=== PATIENT | female | born 1955 | race Caucasian/White ===

== ENCOUNTER → 2017-08-25 13:11 | Outpatient (CLI) | payer OTHER, SELFPAY ==
[2017-08-21 13:18] VITALS: BP 140/84; BMI 32.9
--- NOTE | 2017-08-25 13:14 | HPBI_ITS ---
MAMMOGRAPHY - UNILATERAL DIAGNOSTIC: RIGHT BREAST REASON FOR EXAM: Female, 62 years old. Right breast lump. PERTINENT HISTORY: Aunt with breast cancer. TECHNIQUE: Digital unilateral breast marlon (3D mammographic acquisition) in the CC and MLO projections. 2-D mediolateral oblique (MLO) and craniocaudad (CC) views of both breasts were obtained. CAD: Full Field Digital Mammography with Computer Added Detection was performed. COMPARISON: Comparison is made with prior examination dated December 16, 2016 and December 01, 2015. FINDINGS: Breast Composition: The breasts are almost entirely fatty. There are no dominant masses or suspicious calcifications. There is a partially calcified nodule in the anterior medial portion of the right breast suggestive of a calcified fatty cyst. No other significant abnormalities are identified. There has been no significant change since the prior study. HPBI/DIAG MAMM W/CAD, UNILAT IMPRESSION: Stable unilateral diagnostic mammogram. With the patient's history of palpable abnormality in the upper medial portion of the right breast, correlation with ultrasound is recommended. ASSESSMENT CATEGORY: BIRADS Category 0: Incomplete. Need additional imaging evaluation. A letter regarding these results will be sent to the patient by the facility within 30 days. Approximately 10% of breast cancers are not detected by mammography. A normal mammogram should not delay biopsy of a clinically suspicious abnormality. Electronically Signed: North Bauman MD at 8:07 EST Tel [phone], Service support ,
--- NOTE | 2017-08-25 13:54 | US_ITS ---
STUDY: ULTRASOUND BREAST - RIGHT REASON FOR EXAM: Female, 62 years old. Palpable lump in the right breast. TECHNIQUE: Axial and longitudinal images of the RIGHT breast were performed with a high resolution ultrasound transducer. COMPARISON: Comparison is made with prior mammogram dated August 25, 2017 earlier today. FINDINGS: RIGHT Breast: There is a 1.1 cm x 0.8 cm x 0.8 cm cyst at the 2:00 position breast a 6 cm from nipple. Adjacent to this, there is a 4 mm x 5 mm x 4 mm cyst at the 2:00 position breast at 5 cm from nipple. US/Breast Limited Unilateral IMPRESSION: 2 cysts are seen at the 2:00 position of the breast at 6 and 5 cm from the nipple. ASSESSMENT CATEGORY: BIRADS Category 2: Benign. A letter regarding these results will be sent to the patient by the facility within 30 days. Electronically Signed: North Bauman MD at 14:48 EST Tel [phone], Service support ,
== END ==
PROVIDERS: Family Provider Family Medicine; PCP Family Medicine; Visit Provider Internal Medicine Hematology & Oncology
DX: N63.10 Unspecified lump in the right breast, unspecified quadrant (principal); C50.912 Malignant neoplasm of unspecified site of left female breast; Z15.01 Genetic susceptibility to malignant neoplasm of breast
CPT/HCPCS: 76642; 77062; 77065; G0279

== ENCOUNTER → 2017-10-27 09:03 | Outpatient (CLI) | payer OTHER, SELFPAY ==
--- NOTE | 2017-10-25 08:40 | MASS_PTH ---
PATIENT: POLI MORENO LOC: [facility] U#:[id number] AGE/SX: 70/F ROOM: RE10/27/[address]: Dr. Ryan Frank MD : 1955 BED: DIS: SPEC #: [id number] RECD: 10/27/17 07:16 STATUS: KAMAR ИВАН #: [id number] ALINA: 10/25/17 08:[address]: Ryan Frank DEPT: SURGICAL PATHOLOGY RECD BY: Nicolas Chou ENTERED: 10/27/17 09:56 SP TYPE: Mass OTHR DR: Dr. Guanakito King MD Tissues: Abdomen, NOS Procedures: Surgery Specimen Level IV HEADER OPERATION: Excision abdominal mass PRE-OP DIAGNOSIS: Abdominal mass TISSUE SUBMITTED: Abdominal tissue MICROSCOPIC DIAGNOSIS Abdominal tissue, excision: Fragments of fibroadipose tissue with focal fat necrosis, chronic inflammation, foreign body giant cell reaction and dystrophic calcification. Negative for malignancy. SJ:danilo 10/28/17 MICROSCOPIC DESCRIPTION Slides are reviewed. GROSS DESCRIPTION Received in fixative is one container labeled with the patient's name and designated abdominal tissue. The specimen consists of multiple irregular fragments of yellow to vicente soft tissue ranging in size from 1.5 to 3 cm. The largest fragment is sectioned to reveal homogenous cut surfaces. No distinct mass lesion is identified. Machine Design Checker sections are submitted in three cassettes. / AM:danilo 10/27/17 TC:5 CPT: 68944
== END ==
PROVIDERS: Family Provider Family Medicine; PCP Family Medicine; Visit Provider Surgery
DX: R19.00 Intra-abdominal and pelvic swelling, mass and lump, unspecified site (principal)
CPT/HCPCS: 87070; 87205; 88305

== ENCOUNTER → 2018-01-16 13:05 | Outpatient (CLI) | payer OTHER, SELFPAY ==
[2018-01-16 13:40] LABS: CREATININE FINGERSTICK 0.8 mg/dL (0.55-1.02); EGFR FINGERSTICK > 60.0000 mL/min (>60)
--- NOTE | 2018-01-16 13:45 | MRI_ITS ---
STUDY: BILATERAL BREAST MR WITHOUT AND WITH CONTRAST REASON FOR EXAM: Female, 62 years old. History of left breast cancer in April 2006. Status post left lumpectomy. The RCA positive. History of ovarian cancer. TECHNIQUE: Multi-sequence multi-echo imaging of both breasts was performed with a dedicated breast coil. T1-weighted and T2-weighted images were performed before the administration of contrast. T1-weighted images were also performed after the administration of 10 mL of Gadavist contrast intravenously without complications. COMPARISON: Prior breast MR studies dated December 19, 2016 and December 01, 2015. FINDINGS: RIGHT BREAST: The breast tissue is fatty with minimal background enhancement. There are no abnormal enhancing masses or areas of non-mass enhancement in the right breast. LEFT BREAST: The breast tissue is fatty with minimal background enhancement. There is minimal deformity from the left lumpectomy, unchanged. There are no abnormal enhancing masses or areas of non-mass enhancement in the left breast. There are no enlarged or abnormal lymph nodes. There is no abnormality in the visualized regions of the chest or liver. MRI/Breast w/o and/or W Cont Bilat IMPRESSION: Stable breast MRI examination with contrast. No new findings. CATEGORY: BIRADS Category 2: Benign. A letter regarding these results will be sent to the patient by the facility within 30 days. Electronically Signed: Hernandez Hopkins MD at 10:40 EDT , Service support ,
--- NOTE | 2018-01-16 14:39 | BI_ITS ---
MAMMOGRAPHY - BILATERAL SCREENING REASON FOR EXAM: Female, 62 years old. Routine annual screening examination. PERTINENT HISTORY: Personal history of breast cancer. Prior left lumpectomy with radiation treatment. Patient also has a history of ovarian cancer. TECHNIQUE: Digital bilateral breast marlon (3D mammographic acquisition) in the CC and MLO projections. 2-D mediolateral oblique (MLO) and craniocaudad (CC) views of both breasts were obtained. CAD: Full Field Digital Mammography with Computer Added Detection was performed. COMPARISON: Comparison is made with prior study dated August 25, 2017 and December 16, 2016. FINDINGS: Breast Composition: The breasts are almost entirely fatty. There are no dominant masses or suspicious calcifications. Once again, the patient is status post lumpectomy in the deep upper outer aspect of the left breast. There is evidence of mild architectural distortion. This is unchanged. Stable small partially calcified nodules in the left breast. Stable rim calcification and 2 small nodules in the right breast. No other significant abnormalities are identified. There has been no significant change since the prior study. BI/SCREENING MAMM (CAD), BILAT IMPRESSION: Stable bilateral screening mammogram. Yearly follow-up mammogram recommended. (A) ASSESSMENT CATEGORY: BIRADS Category 2: Benign. A letter regarding these results will be sent to the patient by the facility within 30 days. Approximately 10% of breast cancers are not detected by mammography. A normal mammogram should not delay biopsy of a clinically suspicious abnormality. [id number] Electronically Signed: North Bauman MD at 8:29 EDT Tel [phone], Service support ,
== END ==
PROVIDERS: Family Provider Family Medicine; PCP Family Medicine; Visit Provider Internal Medicine Hematology & Oncology
DX: Z12.31 Encounter for screening mammogram for malignant neoplasm of breast (principal); Z15.01 Genetic susceptibility to malignant neoplasm of breast; C50.912 Malignant neoplasm of unspecified site of left female breast; C56.9 Malignant neoplasm of unspecified ovary
CPT/HCPCS: 77059; 77063; 77067; A9585; A4216; C8908

== ENCOUNTER → 2019-01-19 10:17 | Outpatient (CLI) | payer OTHER, SELFPAY ==
[2018-09-17 13:16] VITALS: BMI 30.9
--- NOTE | 2019-01-19 10:24 | BD_ITS ---
STUDY: DUAL ENERGY X-RAY ABSORPTIOMETRY / DXA REASON FOR EXAM: Female, 63 years old. The patient is postmenopausal. Loss of height. History of breast cancer. TECHNIQUE: Bone Mineral Density (BMD) measurements of lumbar spine and bilateral hips were obtained. COMPARISON: Comparison is made with prior study dated October 22, 2016. FINDINGS: Lumbar Spine (L1-L4): g/cm2 (1.068) / T-score (-1.1) / Z-score (0.5) Findings are suggestive of osteopenia with a low fracture risk. Increased thoracic kyphosis. Left Femur Total: g/cm2 (0.739) / T-score (-2.1) / Z-score (-1.0) Left Femoral Neck: g/cm2 (0.725) / T-score (-2.3) / Z-score (-0.8) Right Femur Total: g/cm2 (0.755) / T-score (-2.0) / Z-score (-0.8) Right Femoral Neck: g/cm2 (0.731) / T-score (-2.2) / Z-score (-0.8) The T-Scores on the most recent prior examination were: Lumbar Spine (L1-L4): There has been improvement of bone density since the previous examination. Left Femur Total: which represents a worsening of 3.3%. Right Femur Total: which represents a worsening of 2.5%. BD/Dexa Bone Density Study IMPRESSION: The patient is considered osteopenic as outlined below according to World Dewayne Organization (WHO) criteria with a moderate fracture risk. There has been worsening of bone density since the previous examination. Reference Information: The T-score is the number of standard deviations above or below the standard which is normal for young adults at their peak bone mineral density. The World Health Organization (WHO) interprets the T-scores as follows: Above -1 Normal bone density Between -1 and -2.5 Osteopenia Equal to / or below -2.5 Osteoporosis As a practical clinical guideline, osteopenia may be graded as follows: Mild -1 through -1.5 Moderate -1.6 through -2.0 Severe -2.1 through -2.4 The Z-score is the number of standard deviations above or below age-matched controls. A Z-score of less than -1.5 would be considered abnormal. References: 1. NIH Osteoporosis and Related Bone Diseases http://www.osteo.org 2. International Society for Clinical Densitometry http://www.iscd.org 3. National Osteoporosis Foundation http://www.nof.org Electronically Signed: North Bauman, at 9:15 EDT , Service support ,
--- NOTE | 2019-01-19 10:48 | BI_ITS ---
MAMMOGRAPHY - BILATERAL SCREENING REASON FOR EXAM: Female, 63 years old. Routine annual screening examination. PERTINENT HISTORY: Personal history of breast cancer. History of ovarian cancer. Prior left lumpectomy with relation therapy. Aunts with breast cancer. TECHNIQUE: Digital bilateral breast dre (3D mammographic acquisition) in the CC and MLO projections. 2-D mediolateral oblique (MLO) and craniocaudad (CC) views of both breasts were obtained. CAD: Full Field Digital Mammography with Computer Added Detection was performed. COMPARISON: Comparison is made with prior study dated January 16, 2018 and December 16, 2016. FINDINGS: Breast Composition: There are scattered areas of fibroglandular density. There are no dominant masses or suspicious calcifications. Persistent architectural distortion in the deep upper lateral aspect of the left breast atypia with prior lumpectomy. Residual breast deformity and skin thickening at the operative site. Stable calcified nodules in the left breast. No other significant abnormalities are identified. There has been no significant change since the prior study. BI/SCREEN MAMM (CAD) W/DRE BILAT IMPRESSION: Stable bilateral screening mammogram. Yearly follow-up mammogram recommended. (A) ASSESSMENT CATEGORY: BIRADS Category 2: Benign. A letter regarding these results will be sent to the patient by the facility within 30 days. Approximately 10% of breast cancers are not detected by mammography. A normal mammogram should not delay biopsy of a clinically suspicious abnormality. [id number] Electronically Signed: North Bauman, at 12:35 EDT , Service support ,
== END ==
PROVIDERS: Family Provider Family Medicine; PCP Family Medicine; Referring Provider Internal Medicine Hematology & Oncology; Visit Provider Internal Medicine Hematology & Oncology
DX: M85.80 Other specified disorders of bone density and structure, unspecified site (principal); C56.9 Malignant neoplasm of unspecified ovary; Z78.0 Asymptomatic menopausal state; Z12.31 Encounter for screening mammogram for malignant neoplasm of breast
CPT/HCPCS: 77063; 77067; 77080

== ENCOUNTER → 2019-07-26 09:00 | Outpatient (CLI) | payer MEDICARE, OTHER, SELFPAY ==
[2019-01-25 13:30] VITALS: BMI 31.2
--- NOTE | 2019-07-26 09:02 | MRI_ITS ---
STUDY: BILATERAL BREAST MR WITHOUT AND WITH CONTRAST REASON FOR EXAM: Female, 64 years old. 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 Personal history of ovarian cancer. TECHNIQUE: Multi-sequence multi-echo imaging of both breasts was performed with a dedicated breast coil. T1-weighted and T2-weighted images were performed before the administration of contrast. T1-weighted images were also performed after the administration of 17 ml of Dotarem contrast without complications. COMPARISON: Bilateral mammograms dated January 19, 2019 and January 16, 2018. FINDINGS: RIGHT BREAST: The breast tissue is fatty with minimal background enhancement. There are no abnormal enhancing masses or areas of non-mass enhancement in the right breast. Multiple benign calcifications are noted on mammograms dated January 19, 2019. LEFT BREAST: The breast tissue is fatty with minimal background enhancement. Postlumpectomy changes are present. Benign calcifications and fat necrosis calcifications are seen on the mammogram and on the MRI study. There are no abnormal enhancing masses or areas of non-mass enhancement in the left breast. There are no enlarged or abnormal lymph nodes. There is no abnormality in the visualized regions of the chest or liver. MRI/Breast Bilateral W/O and W IMPRESSION: Post lumpectomy changes in the right breast. No other significant abnormality. Yearly follow-up mammogram would be appropriate. CATEGORY: BIRADS Category 2: Benign. A letter regarding these results will be sent to the patient by the facility within 30 days. Electronically Signed: Hernandez Hopkins MD at 10:58 EST , Service support ,
[2019-07-26 09:23] LABS: Absolute Lymphocyte Count 1.06 X10^3/uL (0.83-4.51); Absolute Neutrophil Count 3.4 X10^3/uL (2.0-7.7); Basophil# 0.02 X10^3/uL; Basophil% 0.4 % (0-1); Eosinophil# 0.03 X10^3/uL; Eosinophils% 0.6 % (0-5); Hematocrit 43.3 % (37-47); Hemoglobin 14.1 g/dL (12.0-15.0); Lymphocyte # 1.06 X10^3/ul (4.0); Lymphocyte % 22.5 % (19-41); Mean Corp Hgb Conc 32.6 g/dL (32-36); Mean Corpuscular Hgb 30.9 pg (27.0-32.0); Mean Platelet Vol. 9.7 fl (6.2-12.0); Monocyte# 0.24 X10^3/uL; Monocyte% 5.1 % (0-10); NRBC Flagged by Analyzer 0 % (0-5); Neutrophil # 3.35 X10^3/uL (2.7-7.7); Neutrophil % 71.2 % (47-70); Platelet Count 180 K/mm3 (150-450); RBC Distribution Width CV 11.7 % (11.6-14.6); RBC Distribution Width SD 40.7 fl (35.1-43.9); Red Blood Count 4.56 M/mm3 (4.2-5.4); White Blood Count 4.7 K/mm3 (4.4-11.0)
[2019-07-26 09:46] LABS: ALB/GLOB Ratio 1.1 RATIO (0.9-2.4); AST(SGOT) 15 U/L (15-37); Alanine Aminotransfer ALT/SGPT 21 U/L (13-56); Albumin, Serum 3.6 g/dL (3.2-5.0); Alkaline Phosphatase 83 U/L (45-117); Anion Gap 4 (5-15); BUN 15 mg/dL (7-18); BUN/Creat Ratio 18.2 RATIO (10-20); Calcium,Total 9.4 mg/dL (8.5-10.1); Chloride 106 mmol/L (98-107); Cholesterol 199 mg/dL (200); Creatinine, Serum 0.82 mg/dL (0.55-1.02); EST Glomerular Filtration Rate 74 mL/min (>60); Est Glom Filt Rate - Afr Amer 90 mL/min (>60); Globulin 3.4 g/dL (2.2-4.2); Glucose 110 mg/dL (74-106); High Density Lipoprotein 51 mg/dL; Sodium Level 139 mmol/L (136-145); Triglycerides 139 mg/dL; Very Low Density Lipoprotein 28 mg/dL (5-40)
[2019-07-26 09:48] LABS: Vitamin D,25 Hydroxy 25.6 ng/mL (29.95-100.01)
== END ==
PROVIDERS: Family Provider Family Medicine; PCP Family Medicine; Referring Provider Internal Medicine Hematology & Oncology; Visit Provider Internal Medicine Hematology & Oncology
DX: C50.912 Malignant neoplasm of unspecified site of left female breast (principal); C56.9 Malignant neoplasm of unspecified ovary; Z15.01 Genetic susceptibility to malignant neoplasm of breast; Z15.02 Genetic susceptibility to malignant neoplasm of ovary; Z79.83 Long term (current) use of bisphosphonates; Z13.220 Encounter for screening for lipoid disorders
CPT/HCPCS: 36415; 77049; 80053; 80061; 82306; 84443; 85025; A9575; A4216; C8908

== ENCOUNTER → 2020-01-24 | Outpatient (CLI) | payer MEDICARE, OTHER, SELFPAY ==
[2019-07-29 13:00] VITALS: BMI 31.1
--- NOTE | 2020-01-24 10:17 | BI_ITS ---
MAMMOGRAPHY - BILATERAL SCREENING REASON FOR EXAM: Female, 64 years old. Routine annual screening examination. PERTINENT HISTORY: Personal history of breast cancer. Aunt with breast cancer. TECHNIQUE: Digital bilateral breast dre (3D mammographic acquisition) in the CC and MLO projections. 2-D mediolateral oblique (MLO) and craniocaudad (CC) views of both breasts were obtained. CAD: Full Field Digital Mammography with Computer Added Detection was performed. COMPARISON: Comparison is made with prior study dated January 19, 2019 and January 17, 2008. FINDINGS: Breast Composition: There are scattered areas of fibroglandular density. There are no dominant masses or suspicious calcifications. Persistent architectural distortion in the deep upper lateral aspect of the left breast in keeping with prior lumpectomy. Stable calcified nodules in the upper outer quadrant of the left breast as well as a fat containing rim calcified nodule in the slightly upper medial portion of the right breast. No other significant abnormalities are identified. There has been no significant change since the prior study. BI/SCREEN MAMM (CAD) W/DRE BILAT IMPRESSION: Stable bilateral screening mammogram. Yearly follow-up mammogram recommended. (A) ASSESSMENT CATEGORY: BIRADS Category 2: Benign. A letter regarding these results will be sent to the patient by the facility within 30 days. Approximately 10% of breast cancers are not detected by mammography. A normal mammogram should not delay biopsy of a clinically suspicious abnormality. [id number] Electronically Signed: North Bauman, at 15:10 EDT , Service support ,
== END | disposition home or self-care (01) ==
LOC: OPBI 10:16
PROVIDERS: PCP Family Medicine; Referring Provider Internal Medicine Hematology & Oncology; Visit Provider Internal Medicine Hematology & Oncology
DX: Z12.31 Encounter for screening mammogram for malignant neoplasm of breast (principal); C50.912 Malignant neoplasm of unspecified site of left female breast; C56.9 Malignant neoplasm of unspecified ovary
CPT/HCPCS: 77063; 77067

== ENCOUNTER → 2020-08-14 09:29 | Outpatient (CLI) | payer MEDICARE, OTHER, SELFPAY ==
[2020-01-31 09:46] VITALS: BMI 30.6
--- NOTE | 2020-08-14 10:13 | MRI_ITS ---
STUDY: BILATERAL BREAST MR WITHOUT AND WITH CONTRAST REASON FOR EXAM: Female, 65 years old. annual, brac+, no problems TECHNIQUE: Multi-sequence multi-echo imaging of both breasts was performed with a dedicated breast coil. T1-weighted and T2-weighted images were performed before the administration of contrast. T1-weighted images were also performed after the administration of IV contrast. no dosage given without complications. COMPARISON: 07.26.19 FINDINGS: RIGHT BREAST: The breast tissue is scattered fibroglandular densities with minimal background enhancement. There are no abnormal enhancing masses or areas of non-mass enhancement in the right breast. LEFT BREAST: The breast tissue is scattered fibroglandular densities with minimal background enhancement. Persistent architectural distortion in the deep upper lateral aspect of the left breast in keeping with prior lumpectomy. Stable calcified nodules in the upper outer quadrant of the left breast as well as a fat containing rim calcified nodule in the slightly upper medial portion of the right breast. There are no enlarged or abnormal lymph nodes. There is no abnormality in the visualized regions of the chest or liver. MRI/Breast Bilateral W/O and W IMPRESSION: Stable breast MR examination with contrast. CATEGORY: BIRADS Category 2: Benign. A letter regarding these results will be sent to the patient by the facility within 30 days. Electronically Signed: Lonnie Castillo MD at 13:03 EST , Service support ,
[2020-08-14 10:16] LABS: Absolute Neutrophil Count 3.2 X10^3/uL (2.0-7.7); Basophil# 0.02 X10^3/uL; Basophil% 0.4 % (0-1); Eosinophil# 0.03 X10^3/uL; Eosinophils% 0.6 % (0-5); Hematocrit 44.1 % (37-47); Hemoglobin 14.3 g/dL (12.0-15.0); Lymphocyte % 26.9 % (19-41); Mean Corp Hgb Conc 32.4 g/dL (32-36); Mean Corpuscular Hgb 30.8 pg (27.0-32.0); Mean Corpuscular Volume 94.8 fL (81-99); Mean Platelet Vol. 9.5 fl (6.2-12.0); Monocyte% 6.2 % (0-10); NRBC Flagged by Analyzer 0 % (0-5); Neutrophil # 3.17 X10^3/uL (2.7-7.7); Neutrophil % 65.5 % (47-70); Platelet Count 197 K/mm3 (150-450); RBC Distribution Width CV 11.8 % (11.6-14.6); RBC Distribution Width SD 40.7 fl (35.1-43.9); Red Blood Count 4.65 M/mm3 (4.2-5.4); White Blood Count 4.8 K/mm3 (4.4-11.0)
[2020-08-14 10:32] LABS: ALB/GLOB Ratio 1.1 RATIO (0.9-2.4); AST(SGOT) 17 U/L (15-37); Alanine Aminotransfer ALT/SGPT 22 U/L (13-56); Albumin, Serum 3.9 g/dL (3.2-5.0); Alkaline Phosphatase 76 U/L (45-117); Anion Gap 7 (5-15); BUN 24 mg/dL (7-18); BUN/Creat Ratio 28.5 RATIO (10-20); Calcium,Total 9.6 mg/dL (8.5-10.1); Chloride 105 mmol/L (98-107); Creatinine, Serum 0.84 mg/dL (0.55-1.02); EST Glomerular Filtration Rate 72 mL/min (>60); Est Glom Filt Rate - Afr Amer 87 mL/min (>60); Globulin 3.5 g/dL (2.2-4.2); Glucose 118 mg/dL (74-106); Potassium 3.4 mmol/L (3.5-5.1); Protein, Total 7.4 g/dL (6.4-8.2); Sodium Level 140 mmol/L (136-145)
== END ==
PROVIDERS: PCP Family Medicine; Referring Provider Internal Medicine Hematology & Oncology; Visit Provider Internal Medicine Hematology & Oncology
DX: C50.912 Malignant neoplasm of unspecified site of left female breast (principal); C56.9 Malignant neoplasm of unspecified ovary; Z15.01 Genetic susceptibility to malignant neoplasm of breast; Z15.02 Genetic susceptibility to malignant neoplasm of ovary
CPT/HCPCS: 77049; 80053; 85025; A9575; C8908

== ENCOUNTER 2020-11-23 09:19 | Outpatient (RCR) | payer SELFPAY ==
[2020-08-17 11:43] VITALS: BMI 32.5
--- NOTE | 2021-05-14 08:12 | HP.PT.NRP ---
POLI MORENO was seen in my office for initial evaluation on . The following Plan of Care was established for this patient: This patient was last seen in our office . Pertinent comments regarding their Physical therapy will appear below: self pay DN- d/c At this point I will be discontinuing this patient from physical therapy. I would be happy to see this patient again in the future if found appropriate by the physician. Thank you! JABIER CorcoranT
== END 2020-11-23 19:00 | disposition home or self-care (01) ==
LOC: PT 09:19
DX: R69 Illness, unspecified (principal)

== ENCOUNTER 2021-09-05 12:00 | Outpatient (RCR) | payer SELFPAY ==
[2020-01-31 09:46] VITALS: BMI 30.6
== END 2021-09-05 19:00 | disposition home or self-care (01) ==
LOC: MASS 12:00
PROVIDERS: PCP Family Medicine
DX: R69 Illness, unspecified (principal)

== ENCOUNTER → 2022-08-30 | Outpatient (CLI) | payer MEDICARE, OTHER, SELFPAY ==
[2022-08-30 13:03] LABS: ALB/GLOB Ratio 1.1 RATIO (0.9-2.4); AST(SGOT) 19 U/L (15-37); Alanine Aminotransfer ALT/SGPT 25 U/L (13-56); Albumin, Serum 3.6 g/dL (3.2-5.0); Alkaline Phosphatase 73 U/L (45-117); Anion Gap 6 (5-15); BUN 15 mg/dL (7-18); BUN/Creat Ratio 17.5 RATIO (10-20); Calcium,Total 9.4 mg/dL (8.5-10.1); Chloride 105 mmol/L (98-107); Cholesterol 220 mg/dL (200); Creatinine, Serum 0.86 mg/dL (0.55-1.02); EST Glomerular Filtration Rate 70 mL/min (>60); Est Glom Filt Rate - Afr Amer 84 mL/min (>60); Globulin 3.3 g/dL (2.2-4.2); Glucose 112 mg/dL (74-106); High Density Lipoprotein 62 mg/dL; Potassium 3.7 mmol/L (3.5-5.1); Protein, Total 6.9 g/dL (6.4-8.2); Sodium Level 139 mmol/L (136-145); Triglycerides 103 mg/dL; Very Low Density Lipoprotein 21 mg/dL (5-40)
== END | disposition home or self-care (01) ==
LOC: MFPLAB 10:32
PROVIDERS: PCP Nurse Practitioner Family; Referring Provider Nurse Practitioner Family; Visit Provider Nurse Practitioner Family
DX: Z13.1 Encounter for screening for diabetes mellitus (principal); Z13.220 Encounter for screening for lipoid disorders
CPT/HCPCS: 36415; 80053; 80061

== ENCOUNTER → 2022-10-10 | Outpatient (CLI) | payer MEDICARE, OTHER, SELFPAY ==
--- NOTE | 2022-10-10 09:27 | BI_ITS ---
MAMMOGRAPHY - BILATERAL SCREENING REASON FOR EXAM: Female, 67 years old. Routine annual screening examination. PERTINENT HISTORY: Personal history of breast cancer. Prior left lumpectomy and radiation treatment. Past history of ovarian carcinoma. On 2 with breast cancer. TECHNIQUE: Digital bilateral breast dre (3D mammographic acquisition) in the CC and MLO projections. 2-D mediolateral oblique (MLO) and craniocaudad (CC) views of both breasts were obtained. CAD: Full Field Digital Mammography with Computer Added Detection was performed. COMPARISON: Comparison is made with prior study dated January 24, 2020 and January 19, 2019. FINDINGS: Breast Composition: There are scattered areas of fibroglandular density. There are no dominant masses or suspicious calcifications. The patient is status post lumpectomy in the deep upper lateral aspect of the left breast with resultant postoperative scarring. Stable appearance of the calcified nodules in the left breast as well as the low density nodule in the medial retrocardiac origin of the right breast. No other significant abnormalities are identified. There has been no significant change since the prior study. BI/SCRN MAMM (CAD)W/DRE BILAT IMPRESSION: Stable bilateral screening mammogram. Yearly follow-up mammogram recommended. (A) ASSESSMENT CATEGORY: BIRADS Category 2: Benign. A letter regarding these results will be sent to the patient by the facility within 30 days. Approximately 10% of breast cancers are not detected by mammography. A normal mammogram should not delay biopsy of a clinically suspicious abnormality. [id number] Electronically Signed: North Bauman MD at 10:47 EDT ,
--- NOTE | 2022-10-10 09:27 | BD_ITS ---
STUDY: DUAL ENERGY X-RAY ABSORPTIOMETRY / DXA REASON FOR EXAM: Female, 67 years old. M85.89 TECHNIQUE: Bone Mineral Density (BMD) measurements of lumbar spine and bilateral hips were obtained. COMPARISON: Comparison is made with prior study dated January 19, 2019. FINDINGS: Lumbar Spine (L1-L4): g/cm2 (0.876) / T-score (-1.6) / Z-score (0.4) Findings are suggestive of osteopenia with a moderate fracture risk. Left Femur Total: g/cm2 (0.700) / T-score (-2.0) / Z-score (-0.6) Left Femoral Neck: g/cm2 (0.599) / T-score (-2.3) / Z-score (-0.5) Right Femur Total: g/cm2 (0.739) / T-score (-1.7) / Z-score (-0.3) Right Femoral Neck: g/cm2 (0.603) / T-score (-2.2) / Z-score (-0.5) The T-Scores on the most recent prior examination were: Lumbar Spine (L1-L4): There has been worsening of bone density since the previous examination. Left Femur Total: which represents an improvement of 2.8%. Right Femur Total: which represents an improvement of 6.1%. BD/Dexa Bone Density Study IMPRESSION: The patient is considered osteopenic as outlined below according to World Deway[employer] Organization (WHO) criteria with a high fracture risk. There has been improvement of bone density since the previous examination. Reference Information: The T-score is the number of standard deviations above or below the standard which is normal for young adults at their peak bone mineral density. The World Health Organization (WHO) interprets the T-scores as follows: Above -1 Normal bone density Between -1 and -2.5 Osteopenia Equal to / or below -2.5 Osteoporosis As a practical clinical guideline, osteopenia may be graded as follows: Mild -1 through -1.5 Moderate -1.6 through -2.0 Severe -2.1 through -2.4 The Z-score is the number of standard deviations above or below age-matched controls. A Z-score of less than -1.5 would be considered abnormal. References: 1. NIH Osteoporosis and Related Bone Diseases www osteo.org 2. International Society for Clinical Densitometry www iscd.org 3. National Osteoporosis Foundation www nof.org Electronically Signed: North Bauman MD at 10:23 EDT ,
== END | disposition home or self-care (01) ==
LOC: OPBD 09:24
PROVIDERS: PCP Nurse Practitioner Family; Visit Provider Nurse Practitioner Family
DX: Z12.31 Encounter for screening mammogram for malignant neoplasm of breast (principal); Z85.3 Personal history of malignant neoplasm of breast; M85.89 Other specified disorders of bone density and structure, multiple sites
CPT/HCPCS: 77063; 77067; 77080

== ENCOUNTER → 2023-04-16 | Outpatient (CLI) | payer MEDICARE, OTHER, SELFPAY ==
[2023-04-16 10:31] LABS: Anion Gap 5 (5-15); BUN 18 mg/dL (7-18); BUN/Creat Ratio 21.6 RATIO (10-20); Calcium,Total 9.2 mg/dL (8.5-10.1); Chloride 108 mmol/L (98-107); Creatinine, Serum 0.83 mg/dL (0.55-1.02); EST Glomerular Filtration Rate 72 mL/min (>60); Est Glom Filt Rate - Afr Amer 87 mL/min (>60); Glucose 113 mg/dL (74-106); Magnesium 2.2 mg/dL (1.6-2.6); Potassium 4.1 mmol/L (3.5-5.1); Sodium Level 139 mmol/L (136-145)
== END | disposition home or self-care (01) ==
LOC: MFPLAB 08:36
PROVIDERS: PCP Family Medicine; Visit Provider Family Medicine
DX: R03.0 Elevated blood-pressure reading, without diagnosis of hypertension (principal)
CPT/HCPCS: 36415; 80048; 83735

== ENCOUNTER → 2023-12-04 | Outpatient (CLI) | payer OTHER, MEDICARE, SELFPAY ==
[2023-12-04 10:51] LABS: AST(SGOT) 20 U/L (15-37); Alanine Aminotransfer ALT/SGPT 17 U/L (13-56); Albumin, Serum 3.5 g/dL (3.2-5.0); Alkaline Phosphatase 74 U/L (45-117); Anion Gap 6 (5-15); BUN 14 mg/dL (7-18); BUN/Creat Ratio 19.6 RATIO (10-20); Calcium,Total 9.6 mg/dL (8.5-10.1); Chloride 108 mmol/L (98-107); Cholesterol 204 mg/dL (200); Creatinine, Serum 0.71 mg/dL (0.55-1.02); EST Glomerular Filtration Rate 86 mL/min (>60); Est Glom Filt Rate - Afr Amer 104 mL/min (>60); Globulin 3.4 g/dL (2.2-4.2); Glucose 113 mg/dL (74-106); High Density Lipoprotein 52 mg/dL; Potassium 3.5 mmol/L (3.5-5.1); Protein, Total 6.9 g/dL (6.4-8.2); Sodium Level 139 mmol/L (136-145); Triglycerides 121 mg/dL; Very Low Density Lipoprotein 24 mg/dL (5-40)
[2023-12-04 11:06] LABS: Microalbumin:Creatinine Ratio 8.3 mg/g CRE (<30 mg/g CRE)
== END | disposition home or self-care (01) ==
LOC: MFPLAB 09:24
PROVIDERS: PCP Family Medicine; Visit Provider Family Medicine
DX: Z13.220 Encounter for screening for lipoid disorders (principal); M85.80 Other specified disorders of bone density and structure, unspecified site
CPT/HCPCS: 36415; 80053; 80061; 82043; 82306; 82570

== ENCOUNTER → 2024-01-14 | Outpatient (CLI) | payer MEDICARE, OTHER, SELFPAY ==
--- NOTE | 2024-01-14 09:20 | BI_ITS ---
MAMMOGRAPHY - BILATERAL SCREENING 3-D TOMOSYNTHESIS REASON FOR EXAM: Female, 68 years old. Encounter for screening mammogram for malignant neoplasm of breas PERTINENT HISTORY: No significant family history. TECHNIQUE: 2-D mammograms and 3-D Tomosynthesis of the breast (s) were performed. CAD was performed. COMPARISON: 10/10/2022 FINDINGS: The breast composition is composed of scattered fibroglandular density. Scattered benign calcifications are seen. No dense spiculated masses or suspicious microcalcifications are identified. No architectural distortion is identified. There is no skin thickening or retraction. There has been no significant change since the prior study. No change in lumpectomy changes and scarring in the upper outer quadrant left breast. BI/SCRN MAMM (CAD)W/DRE BILAT IMPRESSION: No mammographic signs of malignancy. Routine yearly mammograms recommended. ASSESSMENT CATEGORY: BIRADS Category 2: Benign. A letter regarding these results will be sent to the patient by the facility within 30 days. FOLLOW UP RECOMMENDATION: Yearly follow up mammogram recommended. (A) Approximately 10% of breast cancers are not detected by mammography. A normal mammogram should not delay biopsy of a clinically suspicious abnormality. Electronically Signed: Nicolas Tejeda MD at 18:50 EDT ,
== END | disposition home or self-care (01) ==
LOC: OPBD 09:15 → OPBI 09:19
PROVIDERS: PCP Family Medicine; Referring Provider Family Medicine; Visit Provider Family Medicine
DX: Z12.31 Encounter for screening mammogram for malignant neoplasm of breast (principal)
CPT/HCPCS: 77063; 77067

== ENCOUNTER 2024-03-12 16:42 | Inpatient (IN) | payer MEDICARE, OTHER, SELFPAY ==
[2024-03-12] VITALS (10 sets, daily range): BP systolic 149–156; BP diastolic 68–100; PULSE 98–110; RESP 18–25; TEMP 36.1–36.5; O2SAT 84–98; BMI 33.0; BMI 32.2
--- NOTE | 2024-03-12 17:45 | CT_ITS ---
STUDY: CTA CHEST REASON FOR EXAM: Female, 68 years old. DYSPNEA. RADIATION DOSAGE (If Supplied By Facility): CTDIvol = ( 12.56 ) mGy, DLP = ( 559.96 ) mGycm TECHNIQUE: The examination was performed with the intravenous administration of IV 100mL Isovue-370. Post-processing of the angiographic images was performed, with multiplanar reformation and 3D reconstruction. Individualized dose optimization techniques were used for this CT. COMPARISON: 06/21/2016. FINDINGS: Normal enhancement of the main pulmonary artery and right and left pulmonary arteries. Several pulmonary emboli are seen in the segmental vessels of both lungs worse on the left and including the left descending pulmonary artery. Small PE in the distal right main pulmonary artery. No evidence for PE in the pulmonary trunk or left main pulmonary artery. Normal thoracic aorta and visualized great vessels. There is no demonstrated aortic dissection. Normal heart and pericardium. Normal mediastinum. Normal hilar regions. Normal visualized trachea and bronchi. Moderate to large pleural effusion on the right with compressive atelectasis of much of the right lung. Superimposed pneumonia in the right lower lobe is not excluded. Small left pleural effusion with adjacent atelectasis. Normal osseous structures. No acute abnormality seen of the visualized upper abdomen. CT/CTA Chest W/WO Contrast IMPRESSION: Positive for bilateral first, second, and third order pulmonary emboli, worse on the left. Moderate to large right pleural effusion with compressive atelectasis of much of the right lung. N.B. : The above Results were Read Back by Saravanan Lombardo MD to Reanna Sims DO, and understanding confirmed on 03/12/2024 19:15:00 (ET). Electronically Signed: Saravanan Lombardo MD at 19:17 EDT ,
--- NOTE | 2024-03-12 17:45 | EKG12_ITS ---
Test Reason : SOB Blood Pressure : / mmHG Vent. Rate : 102 BPM Atrial Rate : 102 BPM P-R Int : 144 ms QRS Dur : 076 ms QT Int : 392 ms P-R-T Axes : 048 -36 190 degrees QTc Int : 510 ms Sinus tachycardia Left axis deviation T wave abnormality, consider anterolateral ischemia Abnormal ECG Confirmed by WILMER SHI ([id number]), sound editor LUISITO PIERSON ([id number]) on 03/16/2024 8:24:35 AM Referred By: Confirmed By:WILMER SHI
--- NOTE | 2024-03-12 17:46 | ED.VIS.DYS ---
HPI History of Present Illness Chief Complaint: Shortness of Breath Detail of Chief Complaint: Shortness of breath Informant: patient Narrative Narrative: Patient presents to the emergency department complaint of shortness of breath that she has had for couple weeks. Patient states that she had COVID in January and after she got over it felt a little short of breath. Patient then traveled to [place]. She been feeling increasingly short of breath. She does have a cough that is at times productive of some clear phlegm. She denies fevers. She denies significant chest pain but at times when she coughs she has some pain in her back. Her primary care physician saw her today and referred her to the ER to rule out PE. She has never had a blood clot in her leg or lung. Patient was noted to be hypoxic in the office. Patient was given a dose of Eliquis in the office prior to sending patient to the ER. [facility] Medical History (Updated 03/12/24 @ 19:[address] 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 BOWEL RESECTION WITH ANASTOMOSIS LAPAROTOMY/RESECTION OF PELVIC MASS Arthritis BRCA2 gene mutation positive Osteopenia Ovarian cancer Breast cancer, left breast Home Medications ?Medication ?Instructions ?Recorded ?Last Taken ?Type Multivitamins,Therapeutic 1 tab PO DAILY 04/13/13 Unknown History turmeric 450 mg-turmeric root 2,000 mg PO DAILY 04/26/16 Unknown History extract 50 mg capsule calcium carbonate 600 mg PO DAILY 04/23/18 Unknown History alendronate 70 mg tablet 70 mg PO QWEEK 30 days #4 tabs 05/17/19 Unknown Rx biotin 2,500 mcg capsule 5,000 mcg PO DAILY 07/29/19 Unknown History krill oil 500 mg capsule 500 mg PO DAILY 07/29/19 Unknown History lysine 1,000 mg tablet 1,000 mg PO DAILY 07/29/19 Unknown History hydrochlorothiazide 25 mg tablet 12.5 mg PO DAILY 08/17/20 Unknown History anastrozole 1 mg tablet 1 mg PO DAILY 90 days #90 tabs 03/05/21 Unknown Rx Allergy/AdvReac Type Severity Reaction Status Date / Time acetaminophen (From Percocet) AdvReac Intermediate Nausea Verified 03/12/24 16:43 meperidine HCl (From Demerol) AdvReac Intermediate Nausea Verified 03/12/24 16:43 oxycodone (From Percocet) AdvReac Intermediate Nausea Verified 03/12/24 16:43 Family History Mother Skin cancer Pulmonary embolism Hypertension Father CVA (cerebral vascular accident) Surgical History History of lumpectomy History of resection of large bowel History of appendectomy History of total abdominal hysterectomy and bilateral salpingo-oophorectomy Social History (Updated 10/25/17 @ 11:[address] Ryan Frank MD) Smoking Status: Never smoker second hand exposure: No alcohol intake: current alcohol intake frequency: a few times a month Alcohol type: wine substance use type: does not use caffeine: Yes what type of physical activity do you participate in: walking and running frequency: 5-6 times per week seatbelt use: always ROS ROS ED Review of Systems ROS Unobtainable: other Constitutional Constitutional ED: Reports lethargy; Denies chills, fever(s), sweats or weight loss Eyes Eyes: Denies blurry vision, change in vision or diplopia ENT ENT ED: Denies rhinorrhea or sore throat Cardiovascular Cardiovascular: Denies chest pain, orthopnea or racing heartbeat Respiratory/Chest Respiratory/Chest: Reports cough, dyspnea and dyspnea on exertion; Denies orthopnea or sputum Gastrointestinal Gastrointestinal: Denies abdominal pain, diarrhea, nausea or vomiting Genitourinary Genitourinary ED: Denies dysuria, hematuria or urinary frequency Musculoskeletal Musculoskeletal: Denies arthralgias, back pain, myalgias or neck pain Integumentary Denies abscess, Abrasions or rash Neurologic Neurologic: Denies headache(s) or weakness Psychiatric Psychiatric: Denies anxiety, depression or suicidal thoughts Endocrine Endocrinology: Denies polydipsia, polyphagia or polyuria Hematologic/Lymphatic Hematologic/Lymphatic: Denies easy bleeding, easy bruising or lymphadenopathy Allergic/Immunologic Allergic/Immunologic ED: Denies mouth swelling, tongue swelling or urticaria EXAM Physical Exam Const Vital Signs: 03/12/24 16:43 03/12/24 16:43 03/12/24 16:57 Temperature 97 F L Temperature Source Temporal Pulse Rate 110 H Respiratory Rate 25 H Blood Pressure 152/100 H Blood Pressure Mean 117 Pulse Ox 84 94 94 Oxygen Delivery Method Room Air Nasal Cannula Nasal Cannula Oxygen Flow Rate (L/min) 3 4 03/12/24 17:06 03/12/24 17:45 03/12/24 19:00 Temperature 97.7 F L Temperature Source Oral Pulse Rate 103 H Respiratory Rate 22 H Blood Pressure 149/80 H Blood Pressure Mean 103 Pulse Ox 93 93 90 Oxygen Delivery Method Nasal Cannula Nasal Cannula Nasal Cannula Oxygen Flow Rate (L/min) 3 3 4 Positive well nourished and well developed General Appearance ED: well developed and NAD HEENT Reports TM's clear and moist mucous membranes normocephalic and atraumatic; Negative for trauma or tenderness Tympanic Membrane ED: Yes TM's clear Eyes PERRL and EOMs intact bilaterally General Eye ED: Negative for pale conjunctiva or scleral icterus Neck no lymphadenopathy, supple and no JVD General: Negative for tenderness Chest Wall inspection of chest normal and palpation of chest normal Chest: Negative for tenderness Resp normal respiratory effort and clear to auscultation bilaterally Effort and Inspection: Negative for respiratory distress or pain with movement Auscultation: Negative for rhonchi, wheezes or diminished lung sounds Cardio regular rhythm, S1 normal heart sound, S2 normal heart sound and no murmurs Rate: tachycardic Peripheral Pulses: pulses 2+ throughout GI normal to inspection, nondistended, normoactive bowel sounds, soft to palpation, non-tender, non-distended and no masses Back/Spine no CVA tenderness and no thoracic nor lumbar tenderness Extremity normal to inspection General Extremety ED: Negative for edema General Extremity: Negative for edema Neuro oriented x3, CN's II-XII intact bilaterally, no sensory deficits noted and gait normal Sensorium / Orientation: awake, alert, oriented to person, oriented to place and oriented to time Motor Exam: strength 5/5 throughout and strength abnormal Psych mental status grossly normal Skin no rashes or lesions noted and no wounds MDM MDM MDM Narrative Medical decision making narrative: Patient presents hypoxia and concern for PE. Patient apparently had COVID in January and then traveled to [place]. Seen by her primary care physician today in the office and was tachycardic and hypoxic. There was concern for PE therefore Dr. Elpidio Michaud gave her a dose of Eliquis and referred her to the emergency department for definitive testing. IV line established on arrival. EKG obtained showed sinus rhythm with rate of [address] changes. CBC with differential count of 10.0 with hemoglobin 14 and platelet count of 208. Chemistries unremarkable. Troponin was elevated 182. BNP was 128. CTA of the chest was obtained and showed bilateral segmental PEs with a moderate to large right pleural effusion. Case discussed with hospitalist who will evaluate patient for admission. Etiology of the effusion unclear however she does have remote history of ovarian cancer and breast cancer. Unclear if this is a malignant effusion. Lab Data Attestation: I reviewed the patient's lab results. Labs: Laboratory Results - last 24 hr 03/12/24 17:10 WBC 10.0 RBC 4.71 Hgb 14.5 Hct 44.0 MCV 93.4 MCH 30.8 MCHC 33.0 RDW Std Deviation 43.8 RDW Coeff of Michelle 12.7 Plt Count 208 MPV 10.0 Immature Gran % (Auto) 0.500 Neut % (Auto) 77.7 H Lymph % (Auto) 14.4 L Kingsbury % (Auto) 6.3 Eos % (Auto) 0.7 Baso % (Auto) 0.4 Absolute Neuts (auto) 7.7 Absolute Lymphs (auto) 1.43 Nucleated RBC % 0 Sodium 138 Potassium 3.0 L Chloride 102 Carbon Dioxide 27.0 Anion Gap 9 BUN 17 Creatinine 0.79 Estim Creat Clear Calc 71.06 Est GFR (MDRD) Af Amer 92 Est GFR (MDRD) Non-Af 76 BUN/Creatinine Ratio 21.5 H Glucose 128 H Calcium 9.8 Troponin I High Sens 182 H* B-Natriuretic Peptide 127.9 H Radiography Diagnostic Testing: Clinical Impression(s) from Imaging Studies Chest CTA 03/12/24 17:45 IMPRESSION: Positive for bilateral first, second, and third order pulmonary emboli, worse on the left. Moderate to large right pleural effusion with compressive atelectasis of much of the right lung. N.B. : The above Results were Read Back by Saravanan Lombardo MD to Reanna Sims DO, and understanding confirmed on 03/12/2024 19:15:00 (ET). Electronically Signed: Saravanan Lombardo MD at 19:17 EDT , ADDENDUM: 03/12/241923 IMPRESSION: Positive for bilateral first, second, and third order pulmonary emboli, worse on the left. Moderate to large right pleural effusion with compressive atelectasis of much of the right lung. N.B. : The above Results were Read Back by Saravanan Lombardo MD to Reanna Sims DO, and understanding confirmed on 03/12/2024 19:15:00 (ET). Electronically Signed: Saravanan Lombardo MD at 19:17 EDT , Discharge Plan Triage Chief Complaint: Shortness of Breath ED Provider: Reanna Sims Dx/Rx/DC Orders Clinical Impression: Pulmonary emboli, Hypoxia, Pleural effusion, right, Elevated troponin, Hx of ovarian cancer, History of breast cancer Prescriptions: No Action Multivitamins,Therapeutic 1 tab PO DAILY Rx Instructions: WOMEN'S 50 PLUS MULITIPLE VITAMIN turmeric-turmeric root extract 1 EACH capsule 2,000 mg PO DAILY calcium carbonate 600 MG tablet 600 mg PO DAILY Rx Instructions: CALCIUM, VIT D3, MAG, & ZINC alendronate 70 MG tablet 70 mg PO QWEEK 30 Days Qty: 4 0RF lysine 1,000 MG tablet 1,000 mg PO DAILY krill oil 500 MG capsule 500 mg PO DAILY biotin 2,500 MCG capsule 5,000 mcg PO DAILY Rx Instructions: WITH COLLAGEN hydrochlorothiazide 25 MG tablet 12.5 mg PO DAILY anastrozole 1 mg tablet 1 mg PO DAILY 90 Days Qty: 90 1RF Primary Care Provider: Elpidio Michaud Referrals: Elpidio Michaud MD [Primary Care Provider] - Print Language: Afghan Disposition Disposition: Acute Care Hospital [facility]
[2024-03-12 18:11] LABS: Absolute Lymphocyte Count 1.43 X10^3/uL (0.83-4.51); Absolute Neutrophil Count 7.7 X10^3/uL (2.0-7.7); Basophil# 0.04 X10^3/uL; Basophil% 0.4 % (0-1); Eosinophil# 0.07 X10^3/uL; Eosinophils% 0.7 % (0-5); Hemoglobin 14.5 g/dL (12.0-15.0); Lymphocyte # 1.43 X10^3/ul (0.83-4.51); Lymphocyte % 14.4 % (19-41); Mean Corpuscular Hgb 30.8 pg (27.0-32.0); Mean Corpuscular Volume 93.4 fL (81-99); Monocyte# 0.63 X10^3/uL; Monocyte% 6.3 % (0-10); NRBC Flagged by Analyzer 0 % (0-5); Neutrophil # 7.73 X10^3/uL (2.7-7.7); Neutrophil % 77.7 % (47-70); Platelet Count 208 K/mm3 (150-450); RBC Distribution Width CV 12.7 % (11.6-14.6); RBC Distribution Width SD 43.8 fl (35.1-43.9); Red Blood Count 4.71 M/mm3 (4.2-5.4)
[2024-03-12] MEDS: 0.9% Normal Saline (1000mL) 1,000 ML 150 ML IV (18:14)
[2024-03-12 18:29] LABS: BNP,B-Type NATRIURETIC PEPTIDE 127.9 pg/mL (0-100)
--- NOTE | 2024-03-12 18:38 | ED.RN ---
LAB CALLED TROPONIN OF 182. DR TOWNSEND AWARE
[2024-03-12 18:39] LABS: Anion Gap 9 (5-15); BUN 17 mg/dL (7-18); BUN/Creat Ratio 21.5 RATIO (10-20); Calcium,Total 9.8 mg/dL (8.5-10.1); Chloride 102 mmol/L (98-107); Creatinine, Serum 0.79 mg/dL (0.55-1.02); EST Glomerular Filtration Rate 76 mL/min (>60); Est Glom Filt Rate - Afr Amer 92 mL/min (>60); Estimated Creatinine Clearance 71.06 ml/min; Glucose 128 mg/dL (74-106); Sodium Level 138 mmol/L (136-145); Troponin-I HS 182 pg/mL (3.0-54.0)
--- NOTE | 2024-03-12 19:23 | HP.PCM.HOS_ITS ---
[facility] - General General Date of Admission: 03/12/24 Date of Service: 03/12/24 Chief Complaint: SOB. [facility] Narrative POLI ROBLES, is a 68 F with a past medical history of essential hypertension, obesity; with BMI of 33.1 this admission, history of breast cancer on the Left with BRCA2 gene mutation on Anastrazole; s/p Left lumpectomy, history of ovarian cancer; s/p laparotomy for pelvic mass and TIESHA-BSO plus chemotherapy followed previously Dr. Rea of oncology, history of appendectomy, history of resection of large bowel, fat necrosis due to trauma, osteoporosis; on Alendronate, OA and history of COVID-19 in late-January 2024 followed by a 10 day trip to [place] with patient having recently returned home a few days ago who presents to [facility] ER complaining of SOB. Ms. Robles reports her symptoms began approximately 2 weeks prior to admission with a gradual onset of dyspnea on exertion and fatigue with patient noting mild swelling in both of her ankles after her flight back from [place] that seemed to resolve overnight. She also admits to an intermittent cough that is modestly productive of clear phlegm. She denies significant chest pain but she does admit to pleuritic posterior rib pain with a pressure-like sensation radiating into her back that is exacerbated by coughing and deep breathing. She then went to see her PCP at his office and was given a dose of Eliquis prior to the patient being sent to the ER for suspected pulmonary embolism. There is no report of fever, chills, nausea, vomiting, diarrhea or constipation but she does admit to lethargy and progressively worsening dyspnea on exertion. She also denies history of VTE. 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 BOWEL RESECTION WITH ANASTOMOSIS LAPAROTOMY/RESECTION OF PELVIC MASS Arthritis BRCA2 gene mutation positive Osteopenia Ovarian cancer Breast cancer, left breast Home Medications ?Medication ?Instructions ?Recorded ?Last Taken ?Type hydrochlorothiazide 25 mg tablet 12.5 mg PO DAILY BP 08/17/20 Unknown History hydroxyzine pamoate 25 mg capsule 25 mg PO QHS PRN PRN insomnia 03/12/24 Unknown History Allergy/AdvReac Type Severity Reaction Status Date / Time acetaminophen (From Percocet) AdvReac Intermediate Nausea Verified 03/12/24 16:43 meperidine HCl (From Demerol) AdvReac Intermediate Nausea Verified 03/12/24 16:43 oxycodone (From Percocet) AdvReac Intermediate Nausea Verified 03/12/24 16:43 Family History Mother Skin cancer Pulmonary embolism Hypertension Father CVA (cerebral vascular accident) Surgical History History of lumpectomy History of resection of large bowel History of appendectomy History of total abdominal hysterectomy and bilateral salpingo-oophorectomy Social History Smoking Status: Never smoker second hand exposure: No alcohol intake: current alcohol intake frequency: a few times a month Alcohol type: wine substance use type: does not use caffeine: Yes what type of physical activity do you participate in: walking and running frequency: 5-6 times per week seatbelt use: always ROS ROS Narrative Review of systems: Constitutional: Patient missed a lethargy but denies fever, chills, weight loss/gain. Eyes: Patient denies changes in vision or discharge from eyes. ENT: Patient denies runny nose, sore throat or ear pain. CV: Patient denies anterior chest pain, orthopnea, palpitations or heart racing. Resp: Patient admits to progressively worsening dyspnea on exertion and cough modestly productive of clear sputum with posterior rib cage pain made worse by coughing as per HPI. GI: Patient denies abdominal pain, nausea, vomiting, diarrhea or constipation. : Patient denies dysuria, hematuria or urinary frequency. MSK: Patient denies arthralgias, myalgias, back pain or neck pain. Skin: Patient denies rash, abscess or jaundice. Psych: Patient denies symptoms of uncontrolled depression or anxiety. Neuro: Patient denies headache, paresthesias or focal neurologic deficits. Allergy: Patient denies lip swelling, tongue swelling or urticaria. Hematology: Patient denies easy bleeding or easy bruisability. Endocrinology: Patient denies polyuria, polydipsia or polyphagia. 14 point review of systems otherwise negative except for positives noted above in HPI. Vital Signs Vital Signs Vital Signs: 03/12/24 16:43 03/12/24 16:43 03/12/24 16:57 Temperature 97 F L Temperature Source Temporal Pulse Rate 110 H Respiratory Rate 25 H Blood Pressure 152/100 H Blood Pressure Mean 117 Pulse Ox 84 94 94 Oxygen Delivery Method Room Air Nasal Cannula Nasal Cannula Oxygen Flow Rate (L/min) 3 4 03/12/24 17:06 03/12/24 17:45 03/12/24 19:00 Temperature 97.7 F L Temperature Source Oral Pulse Rate 103 H Respiratory Rate 22 H Blood Pressure 149/80 H Blood Pressure Mean 103 Pulse Ox 93 93 90 Oxygen Delivery Method Nasal Cannula Nasal Cannula Nasal Cannula Oxygen Flow Rate (L/min) 3 3 4 Weight Weight: 192 lb 14.472 oz Body Mass Index (BMI) 33.0 Physical Exam Const alert, oriented x3 and average body habitus Constitutional Narrative: Mild distress noted. General Appearance: cooperative HEENT normocephalic, head/scalp atraumatic, hearing grossly normal bilaterally and moist oral mucous membranes Eyes PERRL and EOMs intact bilaterally Neck no lymphadenopathy and supple Resp Resp Narrative: Diminished breath sounds over entire Right lung. Left lung clear to auscultation. Cardio regular rate and regular rhythm GI normal to inspection, nondistended, normoactive bowel sounds, soft to palpation, non-tender and non-distended Extremity normal to inspection and full ROM Skin Skin Narrative: Patient has no evidence of rash, abscess and jaundice. Neuro oriented x3, CN's II-XII intact bilaterally, moves all extremities and no focal motor deficits Sensorium / Orientation: awake, alert, oriented to person, oriented to place and oriented to time Speech: speech normal Psych affect normal Results Medical Records Data Attestation: I reviewed the patient's medical records Lab / Micro Data Attestation: I reviewed the patient's lab results. 03/13/24 05:30 03/12/24 17:10 Labs: Laboratory Results - last 24 hr 03/12/24 17:10: WBC 10.0, RBC 4.71, Hgb 14.5, Hct 44.0, MCV 93.4, MCH 30.8, MCHC 33.0, RDW Std Deviation 43.8, RDW Coeff of Michelle 12.7, Plt Count 208, MPV 10.0, Immature Gran % (Auto) 0.500, Neut % (Auto) 77.7 H, Lymph % (Auto) 14.4 L, Wirt % (Auto) 6.3, Eos % (Auto) 0.7, Baso % (Auto) 0.4, Absolute Neuts (auto) 7.7, Absolute Lymphs (auto) 1.43, Nucleated RBC % 0, Sodium 138, Potassium 3.0 L, Chloride 102, Carbon Dioxide 27.0, Anion Gap 9, BUN 17, Creatinine 0.79, Estim Creat Clear Calc 71.06, Est GFR (MDRD) Af Amer 92, Est GFR (MDRD) Non-Af 76, B UN/Creatinine Ratio 21.5 H, Glucose 128 H, Calcium 9.8, Troponin I High Sens 182 H*, B-Natriuretic Peptide 127.9 H Imaging Radiology Impression Chest CTA 03/12/24 17:45 IMPRESSION: Positive for bilateral first, second, and third order pulmonary emboli, worse on the left. Moderate to large right pleural effusion with compressive atelectasis of much of the right lung. N.B. : The above Results were Read Back by Saravanan Lombardo MD to Reanna Sims DO, and understanding confirmed on 03/12/2024 19:15:00 (ET). Electronically Signed: Saravanan Lombardo MD at 19:17 EDT , Assessment & Plan Assessment/Plan (1) Pulmonary emboli: QUALIFIERS: Pulmonary embolism type: multiple subsegmental (without acute cor pulmonale) Qualified Code(s): I26.94 - Multiple subsegmental pulmonary emboli without acute cor pulmonale (2) Pleural effusion, right: (3) Respiratory insufficiency: (4) Hypokalemia: (5) Hx of ovarian cancer: (6) History of breast cancer: (7) BRCA2 gene mutation positive: PLAN: Plan 1. CTA of chest positive for Bilateral (multisegmental) PE's (L>R) - Admit to PCU. Continue full-dose Lovenox. Check bilateral LE dopplers to evaluate for residual clot burden. Give Tylenol prn for [id number] (level 1-5/10) pain or fever. Give Morphine IV prn for severe (level 6-10/10) pain. 2. Large Right Pleural Effusion with compressive atelectasis of much of the Right lung complicating #1 - Give Lasix 40 mg IV daily plus supplemental KCl and magnesium. Check echocardiogram to evaluate LVEF. Finally, we will consult pulmonology to see this patient on rounds in the a.m. to perform diagnostic thoracentesis for fluid analysis with help appreciated in advance. 3. Acute Respiratory Insufficiency with elevated troponin of 182 pg/mL present on admission due to suspected Acute Cardiac Strain attributable to #1 & #2 - Wean supplemental oxygen as tolerated. 4. Hypokalemia of 3 mmol/L present on admission adding to the complexity of #1 - #3 - Give supplemental KCl and then recheck level in AM to ensure improvement. 5. History of Ovarian Cancer (2008); s/p TIESHA-BSO with subsequent relapse ~4 years later and no recurrent disease since that time - but now with suspected recurrence likely causing #1 - #3 with paraneoplastic PE and large unilateral pleural effusion - Noted with fluid analysis needing to be sent after thoracentesis. If results are positive for recurrence of this malignancy we will consult Dr. Albright et al to see this patient this admission for further recommendations. 6. History of Breast Cancer with BRCA2 gene mutation; s/p lumpectomy with patient having stopped Anastrazole a few months ago - Noted. Fluid analysis will be sent after thoracentesis to evaluate for possible relapse. 7. Relatively recent COVID-19 in late-January - Noted. 8. Obesity; with BMI of 33.1 this admission adding to the burden of disease constituted by #1 - #7 - Weight loss will be recommended. Check TSH. This adds to the complexity of her case and may hamper her recovery. 9. Essential hypertension - Continue home regimen plus give prn IV Hydralazine for systolic blood pressure > 160 mmHg. 10. History of appendectomy - Noted. 11. History of resection of large bowel - Noted. 12. History of Fat Necrosis due to Trauma - Noted. 13. Osteoporosis; on Alendronate - Stable. Restart Alendronate as outpatient. 14. OA - Give Tylenol prn. 15. DVT prophylaxis - Patient already on full-dose Lovenox for #1. Total time: Approximately 75 minutes. Charges/Coding Visit Charges Inpatient E&M: 97671 Init Hosp L3
[2024-03-12] MEDS: Potassium Chloride Oral Tablet 20 MEQ 60 MEQ PO (21:27)
[2024-03-12] MEDS: KCL 20MEQ in 0.9% NS 20 MEQ/1,000 ML IV.SOLN. 70 MEQ IV (21:27)
[2024-03-12 21:29] LABS: Phosphorus 2.9 mg/dL (2.5-4.9)
[2024-03-12] MEDS: Enoxaparin 100 MG/ML Syringe 90 MG SC (21:35)
[2024-03-12] MEDS: Temazepam 15 MG Capsule PO (23:34)
[2024-03-12] MEDS: MELATONIN 3 MG TABLET PO (23:36)
[2024-03-13] VITALS (7 sets, daily range): BP systolic 139–145; BP diastolic 76–89; PULSE 94–101; RESP 18; TEMP 36.1–36.9; O2SAT 90–95; BMI 32.2
[2024-03-13 06:09] LABS: Absolute Lymphocyte Count 0.72 X10^3/uL (0.83-4.51); Absolute Neutrophil Count 5.7 X10^3/uL (2.0-7.7); Basophil# 0.03 X10^3/uL; Basophil% 0.4 % (0-1); Eosinophil# 0.03 X10^3/uL; Eosinophils% 0.4 % (0-5); Hematocrit 40.5 % (37-47); Hemoglobin 13.5 g/dL (12.0-15.0); Lymphocyte # 0.72 X10^3/ul (0.83-4.51); Lymphocyte % 10.4 % (19-41); Mean Corp Hgb Conc 33.3 g/dL (32-36); Mean Corpuscular Hgb 31.6 pg (27.0-32.0); Mean Corpuscular Volume 94.8 fL (81-99); Mean Platelet Vol. 9.5 fl (6.2-12.0); Monocyte# 0.42 X10^3/uL; Monocyte% 6.1 % (0-10); NRBC Flagged by Analyzer 0 % (0-5); Neutrophil # 5.71 X10^3/uL (2.7-7.7); Neutrophil % 82.4 % (47-70); Platelet Count 171 K/mm3 (150-450); RBC Distribution Width CV 12.5 % (11.6-14.6); RBC Distribution Width SD 42.9 fl (35.1-43.9); Red Blood Count 4.27 M/mm3 (4.2-5.4); White Blood Count 6.9 K/mm3 (4.4-11.0)
[2024-03-13 07:21] LABS: ALB/GLOB Ratio 0.8 RATIO (0.9-2.4); AST(SGOT) 18 U/L (15-37); Alanine Aminotransfer ALT/SGPT 20 U/L (13-56); Albumin, Serum 2.6 g/dL (3.2-5.0); Alkaline Phosphatase 80 U/L (45-117); Anion Gap 4 (5-15); BUN 9 mg/dL (7-18); BUN/Creat Ratio 17.4 RATIO (10-20); Calcium,Total 8.7 mg/dL (8.5-10.1); Chloride 110 mmol/L (98-107); Creatinine, Serum 0.52 mg/dL (0.55-1.02); EST Glomerular Filtration Rate 125 mL/min (>60); Est Glom Filt Rate - Afr Amer 151 mL/min (>60); Estimated Creatinine Clearance 72.67 ml/min; Globulin 3.2 g/dL (2.2-4.2); Glucose 116 mg/dL (74-106); Magnesium 1.7 mg/dL (1.6-2.6); Potassium 3.9 mmol/L (3.5-5.1); Protein, Total 5.8 g/dL (6.4-8.2); Sodium Level 140 mmol/L (136-145)
[2024-03-13] MEDS: Multivitamins,Therapeutic Tablet 1 TABLET PO (08:00)
[2024-03-13] MEDS: hydroCHLOROthiazide 12.5mg 12.5 MG PO (08:01)
[2024-03-13] MEDS: Enoxaparin 100 MG/ML Syringe 90 MG SC ×2 (08:01→21:41)
[2024-03-13] MEDS: Calcium Carbonate 500 MG Tablet PO (08:04)
[2024-03-13 08:22] LABS: Troponin-I HS 107 pg/mL (3.0-54.0)
--- NOTE | 2024-03-13 12:00 | CASEMGMT ---
RN CM Face to Face with patient for initial transition planning/care coordination assessment. RN CM introduced self and role at [facility]. Patient sitting edge of bed, alert and oriented, son at bedside. Patient willing to participate in assessment and is able to answer all questions appropriately. Care providers, pharmacy, and demographics verified. Strata: 2 PCP: Elpidio Michaud Specialists: Was following with Pankajmich but patient is planning to change oncologist Preferred Pharmacy: [facility] Insurance: [facility] [place] Prescription Benefit: yes, Eliquis savings card provided to patient Living Will/HPOA: yes, son Will Travis LNOK: son Living Arrangements: Patient lives alone in a tri-level home with 5-6 steps and railing between levels. Patient is independent and able to ambulate stairs. Transportation: self, son, sister in law DME/HHC: Patient denies DME in the home. No previous HHC or SNF. Currently on oxygen, will monitor for home oxygen. DME agencies reviewed and prefers [employer] for possible home oxygen, green sheet placed on chart. Patient wishes to discharge home, denies need for home health at this time. Patient states she has no further needs or concerns at this time. CM to follow for discharge planning needs that may arise. Disposition Plan: Patient to discharge home with family support and follow-up plans in place. Sharita HUTCHINS, RN, CM
--- NOTE | 2024-03-13 14:43 | PN.HOSP_ITS ---
Reason for Visit Reason for Visit: Diagnoses Hypokalemia (03/12/24) Multiple subsegmental pulmonary emboli without acute cor pulmonale (03/12/24) Pleural effusion, not elsewhere classified (03/12/24) Other abnormalities of breathing (03/12/24) Genetic susceptibility to malignant neoplasm of breast (03/12/24) Genetic susceptibility to malignant neoplasm of ovary (03/12/24) Personal history of malignant neoplasm of breast (03/12/24) Personal history of malignant neoplasm of ovary (03/12/24) Subjective Subjective Patient was seen and examined today, she remains on 4 L of supplemental oxygen via nasal cannula. I had a discussion with her about whether she wanted to be discharged on oxygen or wait for reevaluation tomorrow to see if she would need oxygen, patient has decided she will wait until tomorrow and she is okay with staying in the hospital. Objective Data Objective Data Vital Signs: Vital Signs Temp Pulse Resp BP Pulse Ox O2 Del Method O2 Flow Rate 97.8 F 101 H 18 144/89 H 91 Nasal Cannula 4 03/13/24 08:00 03/13/24 14:00 03/13/24 08:00 03/13/24 08:00 03/13/24 14:00 03/13/24 14:00 03/13/24 14:00 Oxygen Flow Rate (L/min) 4 Oxygen Delivery Method Nasal Cannula Weight: 87.9 kg Body Mass Index (BMI) 32.2 Intake & Output: Intake and Output for Last 24 Hours 03/11/24 03/12/24 03/13/24 23:59 23:59 23:59 Intake Total 340 / 340 803.83 / 803.83 Output Total Balance 340 / 340 802.83 / 802.83 Lab / Micro Data 03/13/24 05:30 03/13/24 05:30 Labs: Laboratory Results - last 24 hr 03/12/24 17:10: WBC 10.0, RBC 4.71, Hgb 14.5, Hct 44.0, MCV 93.4, MCH 30.8, MCHC 33.0, RDW Std Deviation 43.8, RDW Coeff of Michelle 12.7, Plt Count 208, MPV 10.0, Immature Gran % (Auto) 0.500, Neut % (Auto) 77.7 H, Lymph % (Auto) 14.4 L, Mora % (Auto) 6.3, Eos % (Auto) 0.7, Baso % (Auto) 0.4, Absolute Neuts (auto) 7.7, Absolute Lymphs (auto) 1.43, Nucleated RBC % 0, Sodium 138, Potassium 3.0 L, Chloride 102, Carbon Dioxide 27.0, Anion Gap 9, BUN 17, Creatinine 0.79, Estim Creat Clear Calc 71.06, Est GFR (MDRD) Af Amer 92, Est GFR (MDRD) Non-Af 76, B UN/Creatinine Ratio 21.5 H, Glucose 128 H, Calcium 9.8, Phosphorus 2.9, Troponin I High Sens 182 H*, B-Natriuretic Peptide 127.9 H 03/13/24 05:30: WBC 6.9, RBC 4.27, Hgb 13.5, Hct 40.5, MCV 94.8, MCH 31.6, MCHC 33.3, RDW Std Deviation 42.9, RDW Coeff of Michelle 12.5, Plt Count 171, MPV 9.5, Immature Gran % (Auto) 0.300, Neut % (Auto) 82.4 H, Lymph % (Auto) 10.4 L, Mora % (Auto) 6.1, Eos % (Auto) 0.4, Baso % (Auto) 0.4, Absolute Neuts (auto) 5.7, A bsolute Lymphs (auto) 0.72 L, Nucleated RBC % 0, Sodium 140, Potassium 3.9, C hloride 110 H, Carbon Dioxide 26.0, Anion Gap 4 L, BUN 9, Creatinine 0.52 L, Estim Creat Clear Calc 72.67, Est GFR (MDRD) Af Amer 151, Est GFR (MDRD) Non-Af 125, BUN/Creatinine Ratio 17.4, Glucose 116 H, Calcium 8.7, Magnesium 1.7, Total Bilirubin 0.70, AST 18, ALT 20, Alkaline Phosphatase 80, Troponin I High Sens 107 H, Total Protein 5.8 L, Albumin 2.6 L, Globulin 3.2, Albumin/Globulin Ratio 0.8 L, TSH 2.150 Radiography Diagnostic Testing: Radiology Impression Chest CTA 03/12/24 17:45 IMPRESSION: Positive for bilateral first, second, and third order pulmonary emboli, worse on the left. Moderate to large right pleural effusion with compressive atelectasis of much of the right lung. N.B. : The above Results were Read Back by Saravanan Lombardo MD to Reanna Sims DO, and understanding confirmed on 03/12/2024 19:15:00 (ET). Electronically Signed: Saravanan Lombardo MD at 19:17 EDT , ADDENDUM: 03/12/241923 IMPRESSION: Positive for bilateral first, second, and third order pulmonary emboli, worse on the left. Moderate to large right pleural effusion with compressive atelectasis of much of the right lung. N.B. : The above Results were Read Back by Saravanan Lombardo MD to Reanna Sims DO, and understanding confirmed on 03/12/2024 19:15:00 (ET). Electronically Signed: Saravanan Lombardo MD at 19:17 EDT , Physical Exam Const alert, oriented x3, no apparent distress and healthy appearing General Appearance: cooperative, well kempt and well developed Orientation / Consciousness: awake, oriented to person, oriented to place and oriented to time HEENT normocephalic and moist oral mucous membranes Eyes PERRL, EOMs intact bilaterally and conjunctivae normal Neck supple, no JVD, thyroid normal and no carotid bruits General: trachea midline Resp normal respiratory effort, no retractions, no use of accessory muscles and clear to auscultation bilaterally Auscultation: Negative for rales, rhonchi or wheezes Cardio regular rate, regular rhythm, S1 normal heart sound, S2 normal heart sound, no murmurs, no rub and no gallops GI normal to inspection, nondistended, normoactive bowel sounds, soft to palpation, non-tender and non-distended Extremity no clubbing, cyanosis or edema Skin no rashes or lesions noted General Skin Exam: no breakdown Neuro oriented x3, CN's II-XII intact bilaterally, moves all extremities, no focal motor deficits and no sensory deficits noted Sensorium / Orientation: awake and alert Speech: speech normal Psych affect normal Assessment & Plan Assessment/Plan (1) Pulmonary emboli: QUALIFIERS: Pulmonary embolism type: multiple subsegmental (without acute cor pulmonale) Qualified Code(s): I26.94 - Multiple subsegmental pulmonary emboli without acute cor pulmonale PLAN: Plan 1. Bilateral pulmonary emboli-worse on the left-continue Eliquis and supplemental oxygen #2 hypoxia secondary to #1-continue to monitor pulse ox and adjust oxygen if needed #3 moderate to large right pleural effusion with compressive atelectasis of much of the right lung-patient will need a thoracentesis to drain this fluid, this will not be able to be accomplished until next week due to the weekend and holiday Friday. #4 essential hypertension-patient will remain on her present medications #5 elevated troponin-probably secondary to pulmonary embolism, I do not believe the patient has had a non-STEMI Total clinical time spent by myself addressing the patient's medical issues, reviewing all of her data, and collaborating with patient's care team: 35 minutes Charges/Coding Visit Charges Inpatient E&M: 93783 Subs Hosp L2
[2024-03-13] MEDS: Ibuprofen 200 MG Tablet PO ×2 (15:36→21:41)
--- NOTE | 2024-03-13 18:10 | CON.PCM.CC_ITS ---
HPI Consult Data Date of Consult: 03/13/24 HPI Narrative HPI Narrative: POLI MORENO, is a 68 F who presents [facility], [facility] Medical History Fat necrosis due to trauma BOWEL RESECTION WITH ANASTOMOSIS LAPAROTOMY/RESECTION OF PELVIC MASS Arthritis BRCA2 gene mutation positive Osteopenia Ovarian cancer Breast cancer, left breast Home Medications ?Medication ?Instructions ?Recorded ?Last Taken ?Type hydrochlorothiazide 25 mg tablet 12.5 mg PO DAILY BP 08/17/20 Unknown History hydroxyzine pamoate 25 mg capsule 25 mg PO QHS PRN PRN insomnia 03/12/24 Unknown History Allergy/AdvReac Type Severity Reaction Status Date / Time acetaminophen (From Percocet) AdvReac Intermediate Nausea Verified 03/12/24 16:43 meperidine HCl (From Demerol) AdvReac Intermediate Nausea Verified 03/12/24 16:43 oxycodone (From Percocet) AdvReac Intermediate Nausea Verified 03/12/24 16:43 Family History Mother Skin cancer Pulmonary embolism Hypertension Father CVA (cerebral vascular accident) Surgical History History of lumpectomy History of resection of large bowel History of appendectomy History of total abdominal hysterectomy and bilateral salpingo-oophorectomy Social History Smoking Status: Never smoker second hand exposure: No alcohol intake: current alcohol intake frequency: a few times a month Alcohol type: wine substance use type: does not use caffeine: Yes what type of physical activity do you participate in: walking and running frequency: 5-6 times per week seatbelt use: always Objective Data Objective Data Vital Signs: Vital Signs Last response 3 Temperature 36.9 C 03/13/24 15:38 Temperature Source Oral 03/13/24 15:38 Pulse Rate 98 03/13/24 15:38 Pulse Strength Normal (2+) 03/13/24 08:00 Respiratory Rate 18 03/13/24 15:38 Respiratory Effort Normal, Non-Labored 03/13/24 14:00 Respiratory Depth Normal 03/13/24 14:00 Respiratory Pattern Normal 03/12/24 22:00 Blood Pressure 145/87 H 03/13/24 15:38 Blood Pressure Mean 106 03/13/24 15:38 Blood Pressure Source Monitor 03/13/24 15:38 Blood Pressure Position Sitting 03/13/24 15:38 Blood Pressure Location Right Arm 03/13/24 15:38 Pulse Ox 95 03/13/24 15:38 Oxygen Delivery Method Nasal Cannula 03/13/24 15:38 Oxygen Flow Rate (L/min) 3 03/13/24 16:43 I&O: I&O Last 24 Hours 3 03/12/24 03/13/24 03/13/24 23:59 11:59 23:59 Intake Total 340 / 340 803.83 / 1103.83 300 / 1103.83 Output Total Balance 340 / 340 802.83 / 1102.83 300 / 1102.83 I&O: Total Stay 3 03/12/24 16:42 thru 03/13/24 17:28 Intake Total 1443.83 Output Total 1 Balance 1442.83 Current Meds Ordered / Administered: Current meds ordered / Administered 3 Generic Name Dose Route Start Last Admin Trade Name Freq PRN Reason Stop Dose Admin Al Hydrox/Mg Hydrox/Simethicone 30 ml 03/12/24 20:58 Mag /Aluminum/Simeth Wch Udc 30 Ml Oral.Susp PO Q6H PRN PRN Gastric Burning Albuterol Sulfate 2.5 mg 03/12/24 20:58 Albuterol 2.5 Mg/3 Ml Vial.Neb. INHALATION Q2H PRN PRN SOB &/OR WHEEZING Calcium Carbonate 500 mg 03/13/24 08:00 03/13/24 08:04 Calcium Carbonate 500 Mg Tablet PO 500 mg DAILYCM MYA Administration Enoxaparin Sodium 90 mg 03/12/24 21:15 03/13/24 08:01 Enoxaparin 100 Mg/Ml Syringe SC 90 mg Q12 MYA Administration Hydrochlorothiazide 12.5 mg 03/13/24 10:00 03/13/24 08:01 Hydrochlorothiazide 12.5mg PO 12.5 mg DAILY MYA Administration Protocol Sodium Chloride 250 mls @ 15 mls/hr 03/12/24 20:50 IV .[id number] PRN Additional IVPB Infusion Sodium Chloride 250 mls @ 15 mls/hr 03/12/24 20:50 IV .[id number] PRN Saline Flush Ibuprofen 200 mg 03/12/24 20:58 03/13/24 15:36 Ibuprofen 200 Mg Tablet PO 200 mg Q4H PRN PRN Administration Pain 1-10 Or Fever >100.7 Melatonin 3 mg 03/12/24 20:58 03/12/24 23:36 Melatonin 3 Mg Tablet PO 3 mg QHS PRN PRN Administration INSOMNIA Morphine Sulfate 2 mg 03/12/24 20:58 Morphine 2 Mg/Ml Syringe IV Q4H PRN PRN Pain Score 6-10 Multivitamins 1 tablet 03/13/24 08:00 03/13/24 08:00 Multivitamins,Therapeutic Tablet PO 1 tablet DAILYCM MYA Administration Ondansetron HCl 4 mg 03/12/24 20:58 Ondansetron 4 Mg/2 Ml Vial IV Q8H PRN PRN NAUSEA/VOMITING Sodium Chloride 10 - 40 ml 03/12/24 20:50 0.9% Saline Lock 10 Ml Syringe IV UD PRN SALINE FLUSH Temazepam 15 mg 03/12/24 22:52 03/12/24 23:34 Temazepam 15 Mg Capsule PO 15 mg QHS PRN PRN Administration INSOMNIA Lab / Micro Data 03/13/24 05:30 03/13/24 05:30 Labs: Laboratory Results - last 24 hr 03/12/24 17:10: WBC 10.0, RBC 4.71, Hgb 14.5, Hct 44.0, MCV 93.4, MCH 30.8, MCHC 33.0, RDW Std Deviation 43.8, RDW Coeff of Michelle 12.7, Plt Count 208, MPV 10.0, Immature Gran % (Auto) 0.500, Neut % (Auto) 77.7 H, Lymph % (Auto) 14.4 L, [place] % (Auto) 6.3, Eos % (Auto) 0.7, Baso % (Auto) 0.4, Absolute Neuts (auto) 7.7, Absolute Lymphs (auto) 1.43, Nucleated RBC % 0, Sodium 138, Potassium 3.0 L, Chloride 102, Carbon Dioxide 27.0, Anion Gap 9, BUN 17, Creatinine 0.79, Estim Creat Clear Calc 71.06, Est GFR (MDRD) Af Amer 92, Est GFR (MDRD) Non-Af 76, B UN/Creatinine Ratio 21.5 H, Glucose 128 H, Calcium 9.8, Phosphorus 2.9, Troponin I High Sens 182 H*, B-Natriuretic Peptide 127.9 H 03/13/24 05:30: WBC 6.9, RBC 4.27, Hgb 13.5, Hct 40.5, MCV 94.8, MCH 31.6, MCHC 33.3, RDW Std Deviation 42.9, RDW Coeff of Michelle 12.5, Plt Count 171, MPV 9.5, Immature Gran % (Auto) 0.300, Neut % (Auto) 82.4 H, Lymph % (Auto) 10.4 L, [place] % (Auto) 6.1, Eos % (Auto) 0.4, Baso % (Auto) 0.4, Absolute Neuts (auto) 5.7, A bsolute Lymphs (auto) 0.72 L, Nucleated RBC % 0, Sodium 140, Potassium 3.9, C hloride 110 H, Carbon Dioxide 26.0, Anion Gap 4 L, BUN 9, Creatinine 0.52 L, Estim Creat Clear Calc 72.67, Est GFR (MDRD) Af Amer 151, Est GFR (MDRD) Non-Af 125, BUN/Creatinine Ratio 17.4, Glucose 116 H, Calcium 8.7, Magnesium 1.7, Total Bilirubin 0.70, AST 18, ALT 20, Alkaline Phosphatase 80, Troponin I High Sens 107 H, Total Protein 5.8 L, Albumin 2.6 L, Globulin 3.2, Albumin/Globulin Ratio 0.8 L, TSH 2.150 Imaging Radiology Impression Chest CTA 03/12/24 17:45 IMPRESSION: Positive for bilateral first, second, and third order pulmonary emboli, worse on the left. Moderate to large right pleural effusion with compressive atelectasis of much of the right lung. N.B. : The above Results were Read Back by Saravanan Lombardo MD to Reanna Sims DO, and understanding confirmed on 03/12/2024 19:15:00 (ET). Electronically Signed: Saravanan Lombardo MD at 19:17 EDT , ADDENDUM: 03/12/241923 IMPRESSION: Positive for bilateral first, second, and third order pulmonary emboli, worse on the left. Moderate to large right pleural effusion with compressive atelectasis of much of the right lung. N.B. : The above Results were Read Back by Saravanan Lombardo MD to Reanna Sims DO, and understanding confirmed on 03/12/2024 19:15:00 (ET). Electronically Signed: Saravanan Lombardo MD at 19:17 EDT , Assessment and Plan . Assessment and plan: Critical Care Time: The entirety of this encounter was done via Telemedicine
[2024-03-13] MEDS: Temazepam 15 MG Capsule PO (21:41)
[2024-03-13] MEDS: MELATONIN 3 MG TABLET PO (21:42)
--- NOTE | 2024-03-14 | IMM_PTH ---
PATIENT: POLI MORENO LOC: [facility] U#:[id number] AGE/SX: 68/F ROOM: [facility] RE03/12/[address]: Dr. Bear Benitez DO : 1955 BED: 1 DIS: 03/14/2024 SPEC #: [id number] RECD: 03/16/24 13:28 STATUS: KAMAR REQ #: [id number] ALINA: 03/14/24 00:[address]: Bear Benitez DEPT: IMMUNOHISTOCHEMISTRY RECD BY: Pola Orlando ENTERED: 03/16/24 13:29 SP TYPE: IMMUNO OTHR DR: DO Dr. Elpidio Britt MD Tissues: THORACIC FLUID Procedures: E-CAD (initial) NAPSIN A (add) CA-125 (add) CEA (add) CK20 (add) CK7 (add) CK8 (add) KI-67 (add) MAMM (add) P53 (add) TTF1 (add) Pankeratin (add) GATA3 (add) CDX2 (add) S-100 (add) PHYSICIAN & [place] [id number] SPECIMEN INFORMATION: Tissue Source: Thoracentesis fluid Clinical Info: Repsiratory insufficiency with history of breast cancer Specimen Number: [id number] CPT code: 73353,15642e33 METHODOLOGY: Deparaffinized sections of prefer/formalin-fixed tissue or PAP/DQ stained slides are incubated with monoclonal/polyclonal antibodies/oligonucleotide probes. Localization is made via biotin free immunoperoxidase method. Appropriate controls are performed and reacted as expected. Results on target cell population are indicated in the following table: RESULTS: ANTIBODY / CLONE RESULT E-Cad (ECH-6) positive Mammaglobin (31A5) positive GATA3 (L50-823) positive AE1-3 (AE1/AE3/PCK26) positive CK7 (OV-TL12/30) positive CK8 (33vjvmN66) positive CK20 (KS20.8) positive CDX2 (VNC1822V) negative S-100 (4C4.9) negative TTF-1 (8G7G3/1) negative Napsin A (Rabbit Polyclonal) negative CEA (11-7/TF-3HB-1) positive CA125 (OC125) negative P53 (DO-7) negative, null pattern Ki-67 (30-9) positive, 2% These tests were developed and their performance characteristics determined by [facility]. They may not have been cleared or approved by the U.S. Food and Drug Administration. The FDA has determined that such clearance or approval is not necessary. The above immunohistochemical/dualISH markers are ordered and reviewed by the Pathologist. INTERPRETATION: Thoracentesis fluid for cytology (cytospin and cellblock): Metastatic breast carcinoma. Case has been reviewed in consultation with Dr. Ramos who concurs with the above diagnosis. IDC:ROBERT NGO/ 03/17/2024
[2024-03-14 03:40] VITALS: BP 157/91; PULSE 91; RESP 18; TEMP 36.3; O2SAT 94
[2024-03-14] MEDS: Ibuprofen 200 MG Tablet PO (03:45)
[2024-03-14 04:04] VITALS: BMI 31.8
[2024-03-14 05:19] LABS: Magnesium 1.6 mg/dL (1.6-2.6)
[2024-03-14] MEDS: Multivitamins,Therapeutic Tablet 1 TABLET PO (07:59)
[2024-03-14] MEDS: hydroCHLOROthiazide 12.5mg 12.5 MG PO (07:59)
[2024-03-14] MEDS: Calcium Carbonate 500 MG Tablet PO (07:59)
[2024-03-14 10:36] VITALS: BP 146/72; PULSE 100; RESP 18; TEMP 36.7; O2SAT 93
--- NOTE | 2024-03-14 11:02 | RAD_ITS ---
INDICATION: rt pleural effusion EXAMINATION/TECHNIQUE: X-RAY - XR Chest 1 View COMPARISON: Prior study dated: 04/27/2016 FINDINGS: LINES/DEVICES: None. LUNGS: Large right lower lung opacity likely due to large right pleural effusion. Underlying consolidation in the right lower lung cannot be excluded. Minimal blunting left costophrenic angle. MEDIASTINUM AND CARDIOVASCULAR STRUCTURES: Cardiac silhouette not enlarged. Central airways and mediastinal contour are unremarkable. BONES AND SOFT TISSUES: Unremarkable. RAD/Chest 1 View (Portable) IMPRESSION: Moderate to large right pleural effusion. Underlying consolidation/collapse cannot be excluded. Electronically Signed: Joaquín Sutton MD at 12:31 EDT ,
--- NOTE | 2024-03-14 12:10 | FLU_PTH ---
PATIENT: POLI MORENO LOC: [facility] U#:[id number] AGE/SX: 68/F ROOM: [facility] RE03/12/[address]: Dr. Bear Benitez DO : 1955 BED: 1 DIS: 03/14/2024 SPEC #: [id number] RECD: 03/16/24 07:49 STATUS: KAMAR REAlexandra #: [id number] ALINA: 03/14/24 12:[address]: Bear Benitez DEPT: CYTOLOGY RECD BY: Margarita Cifuentes ENTERED: 03/16/24 07:49 SP TYPE: Fluid OTHR DR: DO Dr. Elpidio Britt MD Tissues: THORACIC FLUID Procedures: Immunohistochemical Stains Special Stain Group II Surgery Specimen Level IV Cytospin Fluid HEADER OPERATION: Thoracentesis fluid PRE-OP DIAGNOSIS: Respiratory insufficiency with history of breast cancer TISSUE SUBMITTED: Thoracentesis fluid for cytology DIAGNOSIS CYTOLOGY Thoracentesis fluid for cytology (cytospins and cellblock): Metastatic non-small cell carcinoma. See comment. / 03/17/2024 COMMENT Immunohistochemistry ([id number]) supports a breast primary. 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 Case has been reviewed in consultation with Dr. Ramos who concurs with the above diagnosis. IDC:SJ CYTOLOGY STUDY Slides are reviewed. These tests were developed and their performance characteristics determined by [facility]. They may not have been cleared or approved by the U.S. Food and Drug Administration. The FDA has determined that such clearance or approval is not necessary. The above immunohistochemical/dualISH markers are ordered and reviewed by the Pathologist. CYTOLOGY GROSS Received is 2300 ml of dark-jimmie cloudy fluid labeled with the patient's name and and designated per the requisition as Thoracentesis fluid. Submitted for cytology preparation including cell block. Mr 03/16/2024 TC:0 CPT: 54218,16843,09663,07426n5 ADDENDUM ADDENDUM ADDENDUM ADDENDUM ADDENDUM ADDENDUM 09/30/2024 14:47 ADDENDUM 10/11/2024 08:27 ADDENDUM 10/15/2024 08:52 ADDENDUM 09/30/2024 14:47 ADDENDUM 09/30/2024 14:47 ADDENDUM 09/30/2024 14:47 ADDENDUM 09/30/2024 14:47 This addendum is to report the result of the IHC for HER2: [id number]: equivocal (2+) [id number]: pending at [facility], to be reported in a subsequent addendum. This addendum is added to incorporate an outside pathology consultation report. The case was examined at [facility] by Dr. Al (#[id number]) and the following diagnosis was rendered. A. Thoracentesis fluid for cytology: HER2 FISH: Negative HER2 FISH REPORT: HER2 SCORE: NEGATIVE HER2/CEP17 RATIO: 1.1 HER2 COPY NUMBER/CELL: 4.0 Please see complete above mentioned consultation report in EMR This addendum is to report the ER and ME results, requested by Dr Albright: ER: positive (50%, strong intensity) ME: positive (50%, intermediate to strong intensity) All matched controls reacted appropriately.
[2024-03-14 12:16] LABS: LDH 217 U/L (84-246)
--- NOTE | 2024-03-14 12:21 | RAD_ITS ---
INDICATION: post thoracentesis EXAMINATION/TECHNIQUE: X-RAY - XR Chest 1 View COMPARISON: Prior study dated: 03/14/2024 FINDINGS: LINES/DEVICES: None. LUNGS: Markedly decreased right pleural effusion and reexpanded right lung. Persistent mild elevation of the right hemidiaphragm. No evidence of pneumothorax. MEDIASTINUM AND CARDIOVASCULAR STRUCTURES: Cardiac silhouette not enlarged. Central airways and mediastinal contour are unremarkable. BONES AND SOFT TISSUES: Unremarkable. RAD/Chest 1 View (Portable) IMPRESSION: Markedly decreased right pleural effusion and the expanded right lung following thoracentesis. No evidence of pneumothorax. Electronically Signed: Joaquín Sutton MD at 14:06 EDT ,
[2024-03-14 12:25] VITALS: BP 122/73; PULSE 95; RESP 18; TEMP 36.7; O2SAT 99
[2024-03-14 12:27] LABS: Cytology, Body Fluid / CSF SEE PATHOLOGY REPORT
[2024-03-14 12:29] LABS: Body Fluid Mononuclear WBC # 0.371 10^3/uL; Body Fluid Mononuclear WBC % 92.5 %; Body Fluid Polynuclear WBC % 7.5 %; Body Fluid Total Cells Counted 0.745 10^3/ul; Red Cell Count/Body Fluid 0.004 10^6/ul; White Blood Count/Body Fluid 0.401 10^3/uL
[2024-03-14 12:32] LABS: Appearance/Body Fluid SL CLDY; Auto B Fluid Analyzer BKGD Ct COUNTS W/IN LIMITS (W/IN LIMITS); Color/Body Fluid YELLOW; Source- Body Fluid THORACENTESIS
[2024-03-14 12:36] VITALS: RESP 18; O2SAT 99
--- NOTE | 2024-03-14 12:43 | PCM.OP.PRO ---
Procedure Report Date of Procedure: 03/14/24 Right thoracentesis without ultrasound guidance please see dictation of procedure report under plan Assessment & Plan Assessment/Plan (1) Pleural effusion, right: PLAN: Plan Patient underwent a right sided thoracentesis at the bedside today due to hypoxia for diagnostic and therapeutic reasons. Procedure was explained to the patient and she understood risks and benefits of the procedure and elected to go ahead with it, chest x-ray was done today which showed a large pleural effusion on the right-I did not feel that I required ultrasound guidance to remove the fluid. The area posteriorly over her lower hemithorax posteriorly with antiseptic swab, fenestrated drape was placed over the area-prior to this I had percussed an area which was dull on the right lower hemithorax area posteriorly. The area was anesthetized with 1% lidocaine without epinephrine-initially a thoracentesis catheter was inserted into that area but I could not advance the catheter and there was no evidence of air aspirated from the area. An area just below this was then attempted with good success, 2200 cc of jimmie/dark fluid was removed, patient tolerated procedure well but did have some right shoulder pain at the end of the procedure. Chest x-ray was ordered and at the time of this dictation the results are pending. A bandage was placed over the area. Appropriate studies will be obtained on the fluid. Procedures Pulmonary CF Procedures 30xxx-32xxx: [id number] Aspirate pleura w/o imaging
[2024-03-14 13:00] LABS: Lymphocytes 22 %; Macrophages 75 %; Neutrophil (Segs) 3 %
[2024-03-14 13:03] LABS: Body Fluid QC Type(s) BF1Q
[2024-03-14 13:19] LABS: Glucose, Body Fluid 116 mg/dL (40-70); LDH,Body Fluid 181 Units/L (Not Establ.)
[2024-03-14 13:24] VITALS: O2SAT 88; O2SAT 91; O2SAT 93
--- NOTE | 2024-03-14 13:40 | DCINST_ITS ---
Discharge Instructions Diet Discharge Diet: No restrictions Activity Discharge Activity: Return to Normal Activity Weight Bearing Status: Full weight bearing Follow Up Care Test Results: Test results from this visit will be discussed in further detail at your follow- up appointment, if applicable. Discharge Plan Admission Admit Date/Time: 03/12/24 20:05 Primary Reason for Your Visit: Pulmonary embolism, right pleural effusion Attending Provider: Bear Benitez Primary Care Provider: Elpidio Michaud Consulting Providers: Medhat Meza; [place] Instructions Additional Instructions / Restrictions: Do not take any ibuprofen or Aleve or any arthritis pills while on Eliquis-it can cause bleeding, you may take Tylenol for pain If you see any evidence of blood in your stool or urine or have nosebleeds, contact your doctor Use oxygen at 2 L/min via nasal cannula at all times, maintain a pulse ox 90% or above Discharge Orders/Prescriptions Prescriptions: New Eliquis 5 mg tablet 10 mg PO BID Qty: 68 0RF Rx Instructions: 2 tabs twice a day for a total of 13 doses starting tonight, then decrease the dose to 5 mg twice a day Continued hydrochlorothiazide 25 MG tablet 12.5 mg PO DAILY hydroxyzine pamoate 25 mg capsule 25 mg PO QHS PRN PRN (Reason: insomnia) Referrals / Follow Up: Elpidio Michaud MD [Primary Care Provider] - Within 1 Week Disposition Disposition (needs filled in before D/C Order can be placed): Home, Self Care
[2024-03-14] MEDS: APIXABAN 5 MG TABLET 10 MG PO (14:21)
--- NOTE | 2024-03-14 14:47 | PCM.DC.SUM ---
Providers Date of Admission: 03/12/24 Date of Discharge: 03/14/24 Primary Care Physician: Dr. Elpidio Michaud MD Consultations 03/15/24 08:00 Consult: Interventional Radiology Routine Consulting Provider: [place] Reason for Consult: Large Right pleural effusion. EMERGENT Consult: No MD Notified: Yes Date Notified: 03/13/24 Time Notified: 06:34 Method of Notification: Text Method of Consult:: In-Person Reason For Visit: PE, RESPIRATORY INSUFFICIENCY WITH HX OF BREAST Diagnosis Discharge Diagnosis (1) Pleural effusion, right: Status: Acute Code(s): J90 - Pleural effusion, not elsewhere classified Plan: Discharge diagnosis: #1 bilateral pulmonary emboli #2 right pleural effusion-etiology unclear #3 hypokalemia #4 hypoxia secondary to #1 and #2 Plan Patient underwent a right sided thoracentesis at the bedside today due to hypoxia for diagnostic and therapeutic reasons. Procedure was explained to the patient and she understood risks and benefits of the procedure and elected to go ahead with it, chest x-ray was done today which showed a large pleural effusion on the right-I did not feel that I required ultrasound guidance to remove the fluid. The area posteriorly over her lower hemithorax posteriorly with antiseptic swab, fenestrated drape was placed over the area-prior to this I had percussed an area which was dull on the right lower hemithorax area posteriorly. The area was anesthetized with 1% lidocaine without epinephrine-initially a thoracentesis catheter was inserted into that area but I could not advance the catheter and there was no evidence of air aspirated from the area. An area just below this was then attempted with good success, 2200 cc of jimmie/dark fluid was removed, patient tolerated procedure well but did have some right shoulder pain at the end of the procedure. Chest x-ray was ordered and at the time of this dictation the results are pending. A bandage was placed over the area. Appropriate studies will be obtained on the fluid. Medications at Discharge Home Medications hydrochlorothiazide 25 mg tablet 12.5 mg PO DAILY BP 08/17/20 hydroxyzine pamoate 25 mg capsule 25 mg PO QHS PRN PRN insomnia 03/12/24 apixaban 5 mg tablet (Eliquis) 10 mg (2 x 5 mg) PO BID #68 tabs 03/14/24 Hospital Course Operations None Procedures Thoracentesis Summary of Care Provided Minutes Spent on Discharge: 31 Hospital Course: This 68-year-old white female was seen in the emergency room at [facility] with complaints of shortness of breath. Patient had just returned from a trip to [place], she stated that while in [place] she was fatigued but not actually short of breath. When she returned here she became short of breath and went into see her PCP who recommended that she go to the emergency room at [facility] for evaluation. Workup in the emergency room at [facility] included a CT of the chest, there was noted to be a large right pleural effusion along with bilateral pulmonary emboli, patient required 4 L of oxygen via nasal cannula to keep her pulse ox above 90%. Patient was admitted to PCU and placed on Lovenox subcu, I had discussions with her on 03/12/2024 concerning performing a right thoracentesis on the patient, she agreed to go ahead with that because otherwise there would be a long waiting time for her to get it done as an outpatient this Friday. On 03/13/2024, patient was seen and examined: On examination she appeared in good health and spirits, she does not appear to be in any distress. Vital signs as documented. Skin warm and dry and without overt rashes. Neck without JVD, thyroid appears normal, trachea is midline, neck is supple. Lungs-decreased breath sounds are noted over the right lung field from the right upper lung field down to the base. Heart exam notable for regular rhythm, normal sounds and absence of murmurs, rubs or gallops. Abdomen unremarkable and without evidence of organomegaly, masses, or abdominal aortic enlargement, bowel sounds are present in all 4 quadrants, no abdominal tenderness was noted. Extremities nonedematous, no cyanosis was noted, no clubbing was noted. Neuro: Cranial nerves II through XII are grossly intact, no focal motor deficits were noted, sensation to light touch and pinprick is intact, motor exam 5/5 throughout. Psych: Patient is alert and oriented x3, she does not appear anxious or depressed, she does not appear agitated. Patient underwent a bedside thoracentesis with ultrasound guidance on 03/13/2024, approximately 2200 to 2300 cc of jimmie-colored fluid was removed, follow-up chest x-ray showed no evidence of pneumothorax. Patient required 2 L of oxygen on ambulation and rest afterwards. She was felt to be stable for discharge on 03/13/2024. Weight / BMI Weight Weight: 86.8 kg Body Mass Index (BMI) 31.8 ABG / Lab / Microbiology Data 03/13/24 05:30 03/13/24 05:30 Laboratory: Laboratory Results - last 24 hr 03/14/24 04:16: Magnesium 1.6, Lactate Dehydrogenase 217 03/14/24 12:10: Fluid Source THORACENTESIS, Fluid Color YELLOW, Fluid Appearance SL CLDY, Fluid WBC 0.401, Fluid RBC 0.004, Fluid Tot Cell Count 0.745 H, Fld Polynuclear WBCs # 0.030, Fld Polynuclear WBCs % 7.5, Fluid Mononuclear WBCs 0.371, Fld Mononuclear WBCs % 92.5, Fluid Neutrophils 3, Fluid Lymphocytes 22, Fluid Macrophages 75, Fl Pathologist Comment May follow, Fluid Glucose 116 H, Fluid Total Protein 4.0, Fluid LDH 181, Fluid Comment 2 SEE COMMENT Microbiology: Microbiology 03/14/24 12:10 Fluid - Thoracentesis Fluid Gram Stain - Final Radiography Diagnostic Testing: Radiology Impression Chest X-Ray 03/14/24 11:02 IMPRESSION: Moderate to large right pleural effusion. Underlying consolidation/collapse cannot be excluded. Electronically Signed: Joaquín Sutton MD at 12:31 EDT , Chest X-Ray 03/14/24 12:21 IMPRESSION: Markedly decreased right pleural effusion and the expanded right lung following thoracentesis. No evidence of pneumothorax. Electronically Signed: Joaquín Sutton MD at 14:06 EDT , D/C Instructions Discharge Diet: No restrictions Weight Bearing Status: Full weight bearing Meaningful Use Info Meaningful Use Meaningful Use Diagnoses (Choose all that apply): VTE Ischemic Stroke Statin Dosing Therapy Reference: STATIN DOSE THERAPY REFERENCE: * Patients > 75 years receive moderate or high dose statin therapy. * Patients 75 years or YOUNGER should receive HIGH intensity statin dose unless contraindicated. You will be required to document reason for non-treatment if statin daily dose does not meet guidelines. HIGH DOSE STATIN THERAPY DAILY Atorvastatin > than or = to 40 mg Rosuvastatin > than or = to 20 mg Amlodipine + Atorvastatin > than or = to 2.5/40 mg Ezetimibe + Simvastatin 10/80 mg Simvastatin 80mg VTE Anticoag overlap given w/in hospital stay or rx'd at dc?: No Pt receive overlap for 5 days?: No Reason overlap not ordered, prescribed, or given for 5 days: Treatment Not Indicated Discharge Plan Admission Admit Date/Time: 03/12/24 20:05 Primary Reason for Your Visit: Pulmonary embolism, right pleural effusion Attending Provider: Bear Benitez Primary Care Provider: Elpidio Michaud Consulting Providers: Medhat Meza; [place] Instructions Additional Instructions / Restrictions: Do not take any ibuprofen or Aleve or any arthritis pills while on Eliquis-it can cause bleeding, you may take Tylenol for pain If you see any evidence of blood in your stool or urine or have nosebleeds, contact your doctor Use oxygen at 2 L/min via nasal cannula at all times, maintain a pulse ox 90% or above Discharge Orders/Prescriptions Prescriptions: New Eliquis 5 mg tablet 10 mg PO BID Qty: 68 0RF Rx Instructions: 2 tabs twice a day for a total of 13 doses starting tonight, then decrease the dose to 5 mg twice a day Continued hydrochlorothiazide 25 MG tablet 12.5 mg PO DAILY hydroxyzine pamoate 25 mg capsule 25 mg PO QHS PRN PRN (Reason: insomnia) Referrals / Follow Up: Elpidio Michaud MD [Primary Care Provider] - Within 1 Week Disposition Disposition (needs filled in before D/C Order can be placed): Home, Self Care Charges/Coding Visit Charges Inpatient E&M: 56053 Disch Hosp >30min
[2024-03-14 15:04] VITALS: BP 130/89; PULSE 116; RESP 16; TEMP 36.6; O2SAT 93
--- NOTE | 2024-03-14 15:38 | PCM.HOSP.N ---
Hospitalist Note Oxygen testing reviewed, patient is ambulatory in the home and community and requires home oxygen with portability
[2024-03-17 11:36] LABS: Pathologist Comment/Body Fluid Reviewed
--- NOTE | 2024-03-19 12:10 | CASEMGMT ---
VÍCTOR MARTIN NOTE: DC summary from Dr Benitez w/supporting documentation for home O2 faxed to [facility] [place] at this time. Tiffany HUTCHINS RN CM
== END 2024-03-14 16:09 | disposition home or self-care (01) | DRG 843 ==
LOC: ED 19:41 → PCU 20:31
PROVIDERS: Admitting Provider Internal Medicine; Emergency Provider Emergency Medicine; PCP Family Medicine; Visit Provider Internal Medicine
DX: C79.9 Secondary malignant neoplasm of unspecified site (principal); I26.94 Multiple subsegmental thrombotic pulmonary emboli without acute cor pulmonale; I10 Essential (primary) hypertension; E66.9 Obesity, unspecified; J91.0 Malignant pleural effusion; E87.6 Hypokalemia; R79.89 Other specified abnormal findings of blood chemistry; M81.0 Age-related osteoporosis without current pathological fracture; R09.02 Hypoxemia; Z68.33 Body mass index [BMI] 33.0-33.9, adult; Z79.01 Long term (current) use of anticoagulants; Z79.83 Long term (current) use of bisphosphonates; Z90.710 Acquired absence of both cervix and uterus; Z86.16 Personal history of COVID-19; Z85.3 Personal history of malignant neoplasm of breast; Z92.21 Personal history of antineoplastic chemotherapy; Z85.43 Personal history of malignant neoplasm of ovary
CPT/HCPCS: 36415; 71045; 71275; 80048; 80053; 82945; 83615; 83735; 83880; 83986; 84100; 84157; 84443; 84484; 85025; 87040; 87070; 87075; 87077; 87186; 87205; 88108; 88305; 88313; 88341; 88342; 89050; 93005; 94668; 97161; 97802; 99285; J7030; Q9967; A4216

== ENCOUNTER → 2024-04-05 | Outpatient (CLI) | payer MEDICARE, OTHER, SELFPAY ==
--- NOTE | 2024-04-05 13:02 | RAD_ITS ---
STUDY: X-RAY CHEST REASON FOR EXAM: Female, 68 years old. SOB TECHNIQUE: PA and lateral views of the chest. COMPARISON: Comparison is made with prior study dated March 14, 2024. FINDINGS: Surgical clips are seen in the left axilla. Elevation of the right hemidiaphragm. Bilateral pleural effusions right greater than left with bibasilar dependent/compressive atelectasis. Mild degree of vascular congestion. Normal size heart. Normal mediastinum and marvin. Normal visualized pulmonary arteries. Normal visualized aortic arch and descending thoracic aorta. There is demineralization of the osseous structures. Increased kyphosis. Normal visualized ribs, clavicles, and shoulders. There is no demonstrated abnormality of the visualized soft tissue structures of the upper abdomen. RAD/Chest PA and Lateral IMPRESSION: Bilateral pleural effusions right greater than left with bibasilar compressive atelectasis is worse on the right side. Vascular congestion. Electronically Signed: North Bauman MD at 13:41 EDT ,
== END | disposition home or self-care (01) ==
PROVIDERS: PCP Family Medicine
DX: I26.99 Other pulmonary embolism without acute cor pulmonale (principal); R06.02 Shortness of breath
CPT/HCPCS: 71046

== ENCOUNTER 2024-04-12 07:48 | Outpatient (CLI) | payer MEDICARE, OTHER, SELFPAY ==
[2024-04-12] MEDS: Lidocaine 2% (20 ml mdv) 20 ML Vial INFILT (08:35)
--- NOTE | 2024-04-12 08:47 | RAD_ITS ---
EXAM: XR CHEST, 2 VIEWS CLINICAL INDICATION: post thoracentesis TECHNIQUE: Frontal and lateral views of the chest. COMPARISON: 04/05/2024. FINDINGS: LUNGS AND PLEURAL SPACES: Moderately large volume right subpulmonic pleural effusion with compressive atelectases in the bottom half of right lung. Moderate left subpulmonic pleural effusion with mild compressive atelectasis of left lung base. No pneumothorax. HEART: Cardiomegaly. MEDIASTINUM: Central airways and mediastinal contour are unremarkable. BONES/JOINTS: Unremarkable. No acute fracture. SOFT TISSUES: Unremarkable. RAD/Chest Insp/Exp 2 View IMPRESSION: 1. Minimal change in moderately large volume right subpulmonic pleural effusion and compressive atelectases of the bottom half of right lung. 2. Moderate left subpulmonic pleural effusion, increased in volume and mild compressive atelectasis of the left lung base. 3. No pneumothorax. Electronically Signed: Davis Bello MD at 9:09 EDT ,
--- NOTE | 2024-04-12 08:51 | PCM.OP.PRO ---
Procedure Report Date of Procedure: 04/12/24 Assessment & Plan Assessment/Plan (1) Pleural effusion, right: PLAN: PROCEDURE: Ultrasound Guided Thoracentesis ORDERING PROVIDER: Dr. Albright INDICATION: Female, 68 years old. Right pleural effusion. PROVIDER: LUPIS Wallace PROCEDURE: The risks, benefits, and alternatives to the procedure were explained to the patient. The specific risks of bleeding, infection, and pneumothorax requiring chest tube insertion were discussed and accepted. Written informed consent was obtained. The patient was placed in the sitting, upright position. Ultrasonographic evaluation of the bilateral lower pleural spaces was carried out. An adequate pocket was identified in the right lower pleural space. The overlying skin was prepped with chlorhexidine and draped in sterile fashion. 2 % lidocaine was administered subcutaneously for local anesthesia. Under ultrasound guidance, a 5-Romanian thoracentesis needle/catheter system was advanced into the right posterior lower pleural fluid collection. 1550 ml of clear yellow colored fluid was drained. The patient began to have a vagal response, complaining of lightheadedness and feeling hot. The patient was given a cool washcloth. The patient denied chest pain or shortness of breath, but the response was not resolving despite suction being stopped. So although a modest amount of fluid still remained, the catheter was removed. A sterile dressing was applied. The patient was placed supine. The patient tolerated the procedure well. A chest x-ray was ordered. IMPRESSION: Successful ultrasound guided thoracentesis of right pleural effusion. Procedures Radiology Radiology US Procedures: [id number] Thoracentesis
[2024-04-12 09:31] VITALS: BP 143/86; PULSE 86; RESP 18; TEMP 36.9; O2SAT 93
[2024-04-12 09:32] VITALS: BP 133/89; BP 57/33; PULSE 61; PULSE 86; RESP 18; RESP 20; O2SAT 92; O2SAT 95
[2024-04-12 09:34] VITALS: BP 117/62; PULSE 74; RESP 18; O2SAT 91
[2024-04-12 09:38] VITALS: BP 118/65; PULSE 74; RESP 18; O2SAT 91
[2024-04-12 09:40] VITALS: BP 133/75; PULSE 78; RESP 18; O2SAT 93
== END 2024-04-12 23:59 | disposition home or self-care (01) ==
LOC: US 07:49
PROVIDERS: PCP Family Medicine; Referring Provider Internal Medicine Hematology & Oncology; Visit Provider Internal Medicine Hematology & Oncology
DX: J98.11 Atelectasis (principal); J91.0 Malignant pleural effusion
CPT/HCPCS: 32555; 71046

== ENCOUNTER → 2024-04-14 | Outpatient (CLI) | payer MEDICARE, OTHER, SELFPAY | END | disposition home or self-care (01) | LOC: PSN 08:03 | PROVIDERS: PCP Family Medicine; Referring Provider Thoracic Surgery (Cardiothoracic Vascular Surgery); Visit Provider Thoracic Surgery (Cardiothoracic Vascular Surgery) | DX: I26.99 Other pulmonary embolism without acute cor pulmonale (principal); R06.02 Shortness of breath | CPT/HCPCS: 94060; 94726; 94729 ==

== ENCOUNTER → 2024-04-27 | Outpatient (CLI) | payer MEDICARE, OTHER, SELFPAY ==
--- NOTE | 2024-04-27 10:00 | PET_ITS ---
EXAMINATION: FDG-PET/CT ? 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 ? COMPARISON EXAMINATION:? None available ? INDEX LESION SIZE SUV INTERPRETATION Right lower hemithorax pleural interface ? 3.3 max Quantitative criteria for viable neoplasm are fulfilled ? Axial skeletal structures ? 3.9 max Fulfills quantitative criteria for viable osseous neoplasm ? TECHNIQUE: Following the intravenous administration of 14.72 mCi of F-18 deoxyglucose via the right antecubital fossa, multiplanar image acquisitions of the head, neck, chest, abdomen and pelvis to the level of the midthigh, obtained at one-hour post radiopharmaceutical administration contemporaneously interpreted with the current CT of the chest, abdomen and pelvis dated 04/27/2024 via coregistration reveal: ? SERUM GLUCOSE LEVEL:? 80 mg/dL? HEIGHT:?? 64 inches WEIGHT:?? 187 pounds ? FINDINGS: ? HEAD/NECK:? There is no evidence of abnormal increased glucose metabolism in the pharyngeal mucosal space, parapharyngeal space, oropharynx, bilateral-lateral and anterior neck, hypopharynx and distribution of the larynx. ? The visualized portion of the cerebral cortical-subcortical structures demonstrate symmetric and preserved glucose metabolism. ? CHEST:? Facilitated uptake is defined in the right lower posterior hemithorax at the pleural interface. The calculated standard uptake value is 3.3. ? CT of the chest demonstrates the following anatomic characteristics: Bilateral hemithorax pleural effusions are nonglucose avid. Atherosclerotic calcification is defined in the thoracic aorta without evidence of dilatation, aneurysm formation. Coronary artery calcification is observed. Mediastinal soft tissue densities are ametabolic. The right and left axillary soft tissue densities demonstrate no evidence of increased tracer uptake. ? ABDOMEN/PELVIS:? Normal physiologic distribution of the radiopharmaceutical is identified in the hepatic (3.9) and splenic parenchyma, both renal units, urinary bladder, and visualized intestinal tract. ? CT of the abdomen and pelvis is remarkable for the following: A large attenuation abnormality is noted in the left lobe hepatic parenchyma consistent with cyst formation. Corresponding photopenia is noted on review of the morphologic dataset in the analogous location. Multiple cyst formation is noted in the left and right lobe of the hepatic parenchyma. Atherosclerotic calcification is defined in the abdominal aorta without evidence of dilatation, aneurysm formation. Pelvic arterial calcification is observed. Postsurgical changes are defined in the anterior pelvic wall. The uterus is surgically absent.? Cyst formation defined in the left hemipelvis is nontracer avid. ? SKELETAL:? Enhanced tracer uptake is noted in the right iliac wing, left acetabulum, left sacral ala, and the region of the fifth thoracic vertebra. The calculated standard uptake value is 3.9. ? PET/PET/CT Tumor Base -Thigh Subs IMPRESSION: 1. ABNORMAL EXAMINATION INDICATIVE OF MALIGNANT-VIABLE NEOPLASM. 2. Enhanced tracer concentration defined in the left hemithorax at the pleural interface fulfills quantitative criteria for viable neoplasm. (Wilkerson, et al, Chest 122:1918, 2002). 3. Facilitated uptake noted in the axial skeleton fulfills quantitative criteria for viable osseous neoplasm. (juliann Mohamud al, Clinical Nuclear Medicine, 29:161, 2004). Electronic Signature Nicolas Cuellar D.O. Accurate Quantification of SUVs for this report are calculated using the exclusive [employer] Technology. (U.S. Patent No. [id number] [id number] B2 [phone] [place] patent [id number] [id number]). Standardization and correction of the FDG SUV metric via [employer] technology allow for vendor non-specific objective quantitative examination comparison and optimization of the sensitivity and specificity of the FDG PET-CT examination. [email or web address] Electronically Signed: Nicolas Cuellar DO at 22:29 EDT ,
== END | disposition home or self-care (01) ==
LOC: ONC 09:47
PROVIDERS: PCP Family Medicine; Referring Provider Internal Medicine Hematology & Oncology; Visit Provider Internal Medicine Hematology & Oncology
DX: C50.412 Malignant neoplasm of upper-outer quadrant of left female breast (principal); J91.0 Malignant pleural effusion; Z17.0 Estrogen receptor positive status [ER+]
CPT/HCPCS: 78815; A9552

== ENCOUNTER → 2024-04-28 | Outpatient (CLI) | payer MEDICARE, OTHER, SELFPAY ==
--- NOTE | 2024-04-28 16:15 | MRI_ITS ---
INDICATION: METASTATIC DISEASE EVAL EXAMINATION: MRI - MR Brain WO/W Contrast TECHNIQUE: MRI examination of brain obtained with standard protocol including multiplanar multiecho imaging. MRI examination obtained with standard protocol including multiplanar multiecho pre and postcontrast imaging. IV Contrast Dosage and Agent: 15 mL Clariscan COMPARISON: : No relevant prior comparison study available FINDINGS: HEMISPHERES, CEREBELLUM AND BRAINSTEM: 1. The cerebral parenchyma, ventricular system, subarachnoid spaces have normal configuration and density. There is a normal gyral pattern. There is normal rodriguez/white differentiation. No midline shift.. 2. Mild involutional changes. Minimal chronic microvascular deep white matter disease. 3. There is a small focal enhancing nodule along the posterior lateral aspect of the RIGHT occipital lobe measuring 4 mm with minimal surrounding edema consistent with a small metastatic focus. No evidence of hemorrhage. 4. No acute territorial infarct. Minimal surrounding edema associated with the metastatic lesion in the RIGHT occipital lobe. 5. No intraparenchymal mass, hemorrhage, or acute territorial infarct. 6. The cerebellum, brainstem, basilar and suprasellar cisterns have normal appearance. No Chiari malformation. PITUITARY: Infundibulum and pituitary have normal configuration. Midline structures appear normal. CSF SPACES: Appropriate for age. No hydrocephalus. Basal cisterns are patent. VESSELS: 1. There are normal flow voids noted in the great vessels at the skull base ORBITS AND PARANASAL SINUSES: 1. Both globes, extraocular muscles, optic nerves and retrobulbar fat appear unremarkable. 2. Paranasal sinuses are clear. BONY ELEMENTS: Bony elements of the cranial vault, facial skeleton and skull base have normal appearance. SCALP AND SOFT TISSUES: Normal appearance of the soft tissues of the scalp and the visualized face OTHER: None MRI/Brain W/WO Contrast IMPRESSION: 1. Small 4 mm enhancing lesion in the RIGHT occipital lobe with minimal surrounding vasogenic edema. Consistent with a small solitary metastatic deposit. 2. No other evidence of mass, hemorrhage, or acute territorial infarct. 3. Mild chronic microvascular deep white matter disease. Minimal involutional changes. 4. No evidence of bony metastatic changes. 5. No radiographically significant sinus disease. Electronically Signed: Nicolas Callejas MD at 17:06 EDT ,
[2024-04-28 16:59] LABS: CREATININE FINGERSTICK < 1.0 mg/dL (0.55-1.02); EGFR FINGERSTICK > 60.0000 mL/min (>60)
== END | disposition home or self-care (01) ==
LOC: MRI 16:10
PROVIDERS: PCP Family Medicine; Referring Provider Internal Medicine Hematology & Oncology; Visit Provider Internal Medicine Hematology & Oncology
DX: C50.412 Malignant neoplasm of upper-outer quadrant of left female breast (principal); Z17.0 Estrogen receptor positive status [ER+]; Z15.01 Genetic susceptibility to malignant neoplasm of breast; Z15.09 Genetic susceptibility to other malignant neoplasm; Z85.43 Personal history of malignant neoplasm of ovary
CPT/HCPCS: 70553; A9575

== ENCOUNTER → 2024-05-10 | Outpatient (CLI) | payer MEDICARE, OTHER, SELFPAY ==
--- NOTE | 2024-05-10 11:46 | US_ITS ---
PROCEDURE: ULTRASOUND GUIDED THORACENTESIS. DATE: May 10, 2024.. INDICATION: Female, 69 years old. Right pleural effusion. PHYSICIAN: [place] Bauman M.D. PROCEDURE: The risks, benefits, and alternatives to the procedure were explained to the patient. The specific risks of bleeding, infection, and pneumothorax requiring chest tube insertion were discussed and accepted. Written informed consent was obtained. Ultrasonographic evaluation of the right lower pleural space was carried out. An adequate pocket was identified. The patient was placed in the sitting, upright position. The overlying skin was prepped and draped in sterile fashion. 1% lidocaine was administered subcutaneously for local anesthesia. Under ultrasound guidance, a 5 Nepali thoracentesis needle/catheter system was advanced into the right posterior lower pleural fluid collection. Approximately 2030 mL of jimmie-colored fluid was drained. The catheter was removed, and a sterile dressing was applied. A specimen was collected and sent to the laboratory for analysis, as requested by the referring clinician. The patient tolerated the procedure well. A chest x-ray was ordered. US/Thoracentesis W US IMPRESSION: Ultrasound-guided right thoracentesis. Electronically Signed: North Bauman MD at 13:30 EDT ,
[2024-05-10 12:15] VITALS: BP 165/73; PULSE 102; RESP 16; O2SAT 95
--- NOTE | 2024-05-10 12:15 | RAD_ITS ---
STUDY: X-RAY CHEST REASON FOR EXAM: Female, 69 years old. Post thoracentesis TECHNIQUE: AP inspiration and expiration views. COMPARISON: Comparison is made with prior study dated April 12, 2024. FINDINGS: The patient is status post right thoracentesis. No evidence of pneumothorax. Residual bilateral pleural-parenchymal changes. RAD/Chest Insp/Exp 2 View IMPRESSION: No evidence of pneumothorax following the right thoracentesis. Residual bilateral pleural-parenchymal changes. Electronically Signed: North Bauman MD at 13:38 EDT ,
[2024-05-10] MEDS: Lidocaine 2% (20 ml mdv) 20 ML Vial INFILT (12:24)
[2024-05-10 12:25] VITALS: BP 159/75; PULSE 95; RESP 16; O2SAT 96
[2024-05-10 12:30] VITALS: BP 145/74; PULSE 96; RESP 16; O2SAT 95
[2024-05-10 12:36] VITALS: BP 123/82; PULSE 97; RESP 16; O2SAT 92
[2024-05-10 12:45] VITALS: BP 116/55; PULSE 92; RESP 16; O2SAT 93
[2024-05-10 12:55] VITALS: BP 128/77; PULSE 90; RESP 16; O2SAT 92
--- OUTSIDE RECORDS SUMMARY | 2024-05-10 13:59 | XMS RPT_ITS | CCD ---
Author Organization [facility] Care Team Providers Care Barkeep Name Role Phone VÍCTOR CHAVEZ Unavailable Unavailable MICAH DARBY Unavailable Unavailable PABLITO REHMAN Unavailable Unavailable Pablito Rehman MD Primary Care Provider Teetee Michaud MD Primary Care Provider [phone] JOHN ALBRIGHT Attending PABLITO Solo Primary Care Unavailable JOHN ALBRIGHT Attending JOHN Hurtado Referring Unavailable TEETEE MICHAUD Primary Care Unavailable TEETEE MICHAUD Primary Care Unavailable TEETEE MICHAUD Primary Care Unavailable JOHN ALBRIGHT Referring Unavailable TEETEE MICHAUD Primary Care Unavailable Allergies Allergy Classification Reported Allergen(s) Allergy Type Date of Onset Reaction(s) Facility (17 sources) acetaminophen / oxyCODONE; Translations: [OXYCODONE-ACETAMI NOPHEN] Drug Allergy 04-01-2016 GI Upset [facility] Repository (17 sources) meperidine; Translations: [MEPERIDINE] Drug Allergy 04-01-2016 GI Upset [facility] Repository Medications Current Medications Medication Drug Class(es) Dates Sig (Normalized) Sig (Original) apixaban 5 mg oral tablet (12 sources) Factor Xa Inhibitor take 1 tablet by mouth twice daily apixaban (ELIQUIS) 5 mg tab(s) Take 5 mg by mouth two times a day. Active Calcium Carbonate / vitamin D3 (5 sources) take 1 tablet by mouth once daily calcium carbonate/vitamin D3 (CALCIUM + D ORAL) Take 1 tablet by mouth once daily. Active Cinnamon Bark (14 sources) take 1 tablet by mouth once daily CINNAMON BARK ORAL Take 1 tablet by mouth once daily. Active elacestrant (ORSERDU) 345 mg tablet (1 source) Start: 05-09-2024 take 1 tablet by mouth once daily at mealtime elacestrant (ORSERDU) 345 mg tablet Take 1 tablet (345 mg) by mouth once daily. with a meal. 30 tablet 5 05/09/2024 Active ginkgo biloba extract 120 mg oral capsule (14 sources) take 120 mg by mouth once daily ginkgo biloba (GINKOBA ORAL) Take 120 mg by mouth once daily. Active take 1 tablet by mouth once mikhail y ginkgo biloba (GINKOBA ORAL) Take 1 tablet by mouth once daily. Active Glucosamine (15 sources) take 1 tablet by juan luis th once daily GLUCOSAMINE SULFATE (GLUCOSAMINE ORAL) Indications: Left breast mass Take 1 tablet by mouth once daily. Active GLUCOSAMINE SULF ATE (GLUCOSAMINE ORAL) Indications: Left breast mass Take by mouth. Active hydroCHLOROthiazide 12.5 mg oral tablet (14 sources) Thiazide Diuretic take 1 tablet by mouth once daily in the morning hydroCHLOROthiazide 12.5 mg tablet Take 12.5 mg by mouth every morning. Active hydrOXYzine pamoate 25 mg oral capsule (5 sources) Antihistamine take 1 capsule by mouth once daily at bedtime as needed for sleep hydrOXYzine pamoate (VISTARIL) 25 mg capsule TAKE 1 (ONE) CAPSULE BY MOUTH DAILY AT BEDTIME NEEDED FOR SLEEP Active letrozole 2.5 mg oral tablet (14 sources) Aromatase Inhibitor Start : 04-07 take 1 tablet by mouth once daily letrozole (FEMARA) 2.5 mg tablet Take 1 tablet by mouth once daily. 90 tablet 2 04/07/2024 Active MULTI-VITAMIN ORAL (15 sources) take 1 tablet by mouth once daily MULTI-VITAMIN ORAL Indications: Left breast mass Take 1 tablet by mouth once daily. Active MULTI-VITAMIN OR AL Indications: Left breast mass Take by mouth. Active olaparib 150 mg oral tablet (6 sources) Poly(ADP-Ribose) Polymerase Inhibitor Start: 05-03-2024 take 2 tablets by mouth twice daily olaparib (LYNPARZA) 150 mg tablet Take 2 tablets (300mg) by mouth two times a day. 120 tablet 5 05/03/2024 Active ribociclib (3 sources) Start: 2024 ribociclib (KISQALI) 600 mg/day (200 mg x 3) Indications: Malignant neoplasm of upper-outer quadrant of left breast in female, estrogen receptor positive (HCC) , Malignant pleural effusion Take 3 tablets (600mg) by mouth once daily for 21 days on, followed by 7 days off to complete a 28-day treatment cycle. 63 tablet 5 2024 Active TURMERIC ROOT EXTRACT ORAL (15 sources) take 450 mg by mouth once daily TURMERIC ROOT EXTRACT ORAL Indications: Left breast mass Take 450 mg by mouth once daily. Active take 1 tablet by mouth once mikhail y TURMERIC ROOT EXTRACT ORAL Indications: Left breast mass Take 1 tablet by mouth once daily. Active TURMERIC ROOT EX TRACT ORAL Indications: Left breast mass Take by mouth. Active Completed/Discontinued Medications Medication Drug Class(es) Dates Sig (Normalized) Sig (Original) Acai Juarez Extract (2 sources) End: 04-07-2024 ACAI JUAREZ EXTRACT ORAL Indications: Left breast mass Take by mouth. 04/07/[address] EXTRA CT ORAL Indications: Left breast mass Take by mouth. Active anastrozole 1 mg oral tablet (2 sources) Aromatase Inhibitor Start: 11-04-2016 End: 04-07-2024 anastrozole (ARIMIDEX) 1 mg tablet 11/04/2016 04/07/2024 Discontinued cyclobenzaprine hydrochloride 10 mg oral tablet (2 sources) Muscle Relaxant Start: 03-26-2016 End: 04-07-2024 cyclobenzaprine (FLEXERIL) 10 mg tablet Indications: Left breast mass 03/26/2016 04/07/2024 Discontinued iv contrast (will be provided with radiology test) (2 sources) Start: 04-07-2024 End: 04-08-2024 inject 1 dose intravenously once iv contrast (will be provided with radiology test) Indications: Malignant neoplasm of upper-outer quadrant of left breast in female, estrogen receptor positive (HCC) , BRCA2 gene mutation positive , History of ovarian cancer MRI Brain Inject, intravenously, once for 1 dose.No IV access, insert saline lock prior to beginning of sedation, infusion, injection of imaging exam.Discontinue saline lock post exam. If Pt. has a central line or IVAD, may access for administration according to line specific nursing protocol.Once exam is complete flush line and de-access according to line specific nursing protocol in the MR contrast administration guidelines link 1 Each 04/07/2024 04/08/2024 Start: 04-07-2024 End: 09-26-2024 inject 1 dose intravenously once iv contrast (will be provided with radiology test) Indications: Malignant neoplasm of upper-outer quadrant of left breast in female, estrogen receptor positive (HCC) , BRCA2 gene mutation positive , History of ovarian cancer MRI Brain Inject, intravenously, once for 1 dose.No IV access, insert saline lock prior to beginning of sedation, infusion, injection of imaging exam.Discontinue saline lock post exam. If Pt. has a central line or IVAD, may access for administration according to line specific nursing protocol.Once exam is complete flush line and de-access according to line specific nursing protocol in the MR contrast administration guidelines link 1 Each 04/07/2024 04/08/2024 Active zolpidem tartrate 10 mg oral tablet (2 sources) gamma-Aminobutyric Acid-ergic Agonist Start: 11-04-2016 End: 04-07-2024 zolpidem (AMBIEN) 10 mg tab 11/04/2016 04/07/2024 Discontinued Problems Active Problems Problem Classification Problem Date Documented Date Episodic/Chronic Cancer of breast (20 sources) Malignant neoplasm of upper-outer quadrant of female breast; Translations: [Malignant neoplasm of upper-outer quadrant of left female breast] Onset: 04-08-2016 04-08-2016 Chronic Cancer of ovary (18 sources) History of malignant neoplasm of ovary; Translations: [Personal history of malignant neoplasm of ovary] Onset: 04-07-2024 04-07-2024 Episodic Pulmonary heart disease (4 sources) Chronic pulmonary embolism; Translations: [Chronic pulmonary embolism] Onset: 04-07-2024 04-07-2024 Chronic Pulmonary heart disease (14 sources) Pulmonary embolism; Translations: [Other pulmonary embolism without acute cor pulmonale] Onset: 04-07-2024 04-07-2024 Episodic Residual codes; unclassified (17 sources) BRCA2 gene mutation positive; Translations: [Genetic susceptibility to malignant neoplasm of breast] Onset: 04-07-2024 04-07-2024 Episodic Residual codes; unclassified (1 source) Genetic susceptibility to malignant neoplasm of breast; Translations: [BRCA2 gene mutation positive] Onset: 04-07-2024 Episodic Residual codes; unclassified (1 source) Genetic susceptibility to other malignant neoplasm; Translations: [BRCA2 gene mutation positive] Onset: 04-07-2024 Episodic Secondary malignancies (12 sources) Malignant pleural effusion; Translations: [Malignant pleural effusion] Onset: 04-07-2024 04-07-2024 Chronic Past or Other Problems Problem Classification Problem Date Documented Da te Episodic/Chronic Other connective tissue disease (15 sources) Fat necrosis; Translations: [Other specified soft tissue disorders] Onset: 01-06-2017 01-06-2017 Episodic Other screening for suspected conditions (not mental disorders or infectious disease) (15 sources) Mammography abnormal; Translations: [Other abnormal and inconclusive findings on diagnostic imaging of breast] Onset: 04-01-2016 04-01-2016 Episodic Residual codes; unclassified (1 source) Estrogen receptor positive status [ER+]; Translations: [Malignant neoplasm of upper-outer quadrant of left breast in female, estrogen receptor positive (HCC)] Onset: 04-08-2016 Episodic Results Test Name Value Interpretation Reference Range Facility [facility] 05-07-2024 CNPN Telephone (NELIDA) -------- JOYCE ROBLES ([id number]) 1955 F Date Time Provider Department 05/07/24 JIMMIE BURGER During your visit today, we recorded the following information about you: Jimmie Burger, RN 05/07/2024 3:59 PM Signed ORAL ANTI-CANCER AGENTS EDUCATION patient called today for oral medication education of lynparza for Breast Cancer Anticipated/Scheduled start date: TBD READINESS TO LEARN Cognitive Ability: Alert and oriented Motivation to Learn: Interested Family Support: Unable to assess - Family not present Instruction Provided to: Patient Patient learns best by: Multiple Methods Factors affecting learning: None Physical limitation affecting learning: None RODRIGUEZ ASSESSMENT: 1.) Verified that patient knows that the oral agents are for cancer and are taken by mouth. Yes 2.) Medication review completed during visit. No 3.) Patient is able to swallow pills. Yes 4.) Patient is able to read the drug label/information. Yes 5.) Patient is able to open the medication bottles and packages. Yes 6.) Has patient taken other pills for cancer? YES, please explain: Anastrozole 7.) Is patient experiencing any symptoms that would affect their ability to keep down pills, for example nausea or vomiting? No 8.) Verified that patient understands prescription delivery, benefit investigation and refill process. Yes DRUG-SPECIFIC EDUCATION: 1.) Verified patient knows the drug name. Yes 2.) Verified patient understands the dose and schedule of oral anti cancer agent. Yes 3.) Verified patient knows what to do if a medication dose is missed. Yes 4.) Verified patient understands where to store the drug. Yes 5.) Verified patient understands potential side effects and how to manage them. Yes 6.)Verified patient understands handling precautions of oral anti cancer agent. Yes 7.) Verified patient was given written instructions and understands when and whom to call with questions. Yes 8.) Verified patient understands where and how to return drug. Yes 9.) Verified patient received drug specific adult education handout and neutropenic wallet card Yes EVALUATE: The patient demonstrated an understanding of all the above education using the teach-back method. Yes Instructed to call us with any questions, concerns, and/or unresolved symptoms. Will continue to follow up and provide reinforcement of teaching topics as needed. 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 - olaparib (LYNPARZA) 150 mg tablet Take 2 tablets (300mg) by mouth two times a day. - apixaban (ELIQUIS) 5 mg tab(s) Take 5 mg by mouth two times a day. - CINNAMON BARK ORAL Take 1 tablet by mouth once daily. - hydroCHLOROthiazide 12.5 mg tablet Take 12.5 mg by mouth every morning. - ginkgo biloba (GINKOBA ORAL) Take 120 mg by mouth once daily. - letrozole (FEMARA) 2.5 mg tablet Take 1 tablet by mouth once daily. - MULTI-VITAMIN ORAL Take 1 tablet by mouth once daily. - GLUCOSAMINE SULFATE (GLUCOSAMINE ORAL) Take 1 tablet by mouth once daily. - TURMERIC ROOT EXTRACT ORAL Take 450 mg by mouth once daily. 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 Jimmie Burger RN 05/07/2024 3:[address] [facility] Care Coordination FOLLOW-UP NOTE Patient identified by name and date of . YES Spoke to patient Summary: (Reason for follow-up) Patient stated she contacted her PCP because he prescribed Eliquis. PCP advised patient to call our office to see how long she should hold Eliquis prior to dental extractions. Patient will be seeing an oral surgeon who is at [facility]. . Care Coordination Plan: will follow-up with patient next week Jimmie Burger RN May 07, 2024 John Albright DO 05/09/2024 9:59 AM Signed Hold one day prior to extractions. Resume day after extractions if no bleeding issues. DO Mars Bautista Amber, RN 05/10/2024 8:45 AM Signed Patient informed of Dr. Albright's response, stated understanding. Jimmie Burger RN Allergies As of Date: 05/07/2024 Noted Allergy Reaction DEMERAL (MEPERIDINE) 04/01/2016 8 - GI Upset PERCOCET (OXYCODONE-ACETAMINOPHEN )04/01/2016 8 - GI Upset Date Reviewed: 05/04/2024 Reviewed by: Paulina Jay Ma, MA - Fully Assessed Reason for Visit: Medication Problem [65] Prescriptions as of 05/10/2024 - elacestrant (ORSERDU) 345 mg tablet Take 1 tablet (345 mg) by mouth once daily. with a meal. - hydrOXYzine pamoate (VISTARIL) 25 mg capsule TAKE 1 (ONE) CAPSULE BY MOUTH DAILY AT BEDTIME NEEDED FOR SLEEP - calcium carbonate/vitamin D3 (CALCIUM + D ORAL) Take 1 tablet by mouth once daily. - olaparib (LYNPARZA) 150 mg tablet Take 2 tablets (300mg) by mouth two times a day. - apixaban (ELIQUIS) 5 mg tab(s) Take 5 mg by mouth two times a day. - CINNAMON BARK ORAL Take 1 tablet by mouth once daily. - hydroCHLOROthiazide 12.5 mg tablet Take 12.5 mg by mouth every morning. - ginkgo biloba (GINKOBA ORAL) Take 120 mg by mouth once daily. - letrozole (FEMARA) 2.5 mg tablet Take 1 tablet by mouth once daily. - MULTI-VITAMIN ORAL Take 1 tablet by mouth once daily. - GLUCOSAMINE SULFATE (GLUCOSAMINE ORAL) Take 1 tablet by mouth once daily. - TURMERIC ROOT EXTRACT ORAL Take 450 mg by mouth once daily. 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 Timothy 05-06-2024 CNPCynthia Telephone (HEMAWS) -------- JOYCE ROBLES ([id number]) 1955 F Date Time Provider Department 05/06/24 JOHN ALBRIGHT During your visit today, we recorded the following information about you: Paz Orlando 05/06/2024 1:12 PM Signed Patient requested to speak with clinical regarding medications. She also stated she had not heard from [facility] regarding thoracentesis. Please advise. Renay Crowe LPN 05/06/2024 2:08 PM Addendum Left message on patient's identified VM asking her to contact the office. I had faxed the thoracentesis order to [facility] on 05/04/2024. I called to day to follow up and I faxed the order again. Renay Crowe LPN [facility] received orders and patient is scheduled for 05/10/2024. ELA Patel Heather 05/06/2024 5:01 PM Signed Pt called back, tried to reach nurse line but busy she would like called back in am thank you Shanon Bruno LPN 05/07/2024 8:30 AM Signed Returned call to pt, no answer, left VM stating that Reany had re-faxed the order to [facility]. Wanted to make sure with pt that [facility] got ahold of her with date and time. ELA Tan Lori 05/07/2024 8:54 AM Signed Patient called back as she missed a call from the nurse she has medication questions Please advise Shanon Bruno LPN 05/07/2024 9:23 AM Signed Spoke with pt, had questions on recent medication changes from OV. She thought she would be taking a hormone pedro along with the Lynparza. She states she got a lot of information yesterday and wanted to be clear in her instruction. I reviewed her plan from her OV with her. She is going to continue the letrozole until she receives the Lynparza. [facility] called and left her a message, instructed her to call them back. ELA Tan Amber, RN 05/07/2024 3:53 PM Addendum Per [facility], patient has a high co-pay for lynparza and no grants are available. This nurse will wait to review [facility] notes after they discuss with patient. Per updated [facility] notes- patient enrolled in a [facility] veronica. [facility] will contact patient on Friday to discuss delivery. Patient is still confused about stopping letrozole. Patient informed since she will not be going on kisqali she no longer needs the letrozole. VÍCTOR Magallon Paul A, DO 05/09/2024 9:58 AM Signed Her Guardant 360CDx test revealed an estrogen receptor mutation indicating AIs will not help. If Lynparza too much, then can try Orserdu. I'll send Rx. DO Natalee Bautista Paul A, DO 05/09/2024 9:58 AM Signed Addended by: JOHN ALBRIGHT on: 05/09/2024 09:58 AM Modules accepted: Jimmie Cortes RN 05/10/2024 8:50 AM Addendum Patient informed of Dr. Albright's response, stated understanding. Patient will call the [facility] to discuss cost/set up shipment. Patient informed that if the lynparza is covered, we will cancel orserdu. Jimmie Burger RN Renay CroweELA 05/10/2024 8:55 AM Addendum . Jimmie Burger RN 05/10/2024 10:29 AM Signed Patient called and requested that this nurse send [facility] the lab results from [facility] dated 03/13. Labs printed. Will fax to [facility]. Jimmie Burger RN Allergies As of Date: 05/06/2024 Noted Allergy Reaction DEMERAL (MEPERIDINE) 04/01/2016 8 - GI Upset PERCOCET (OXYCODONE-ACETAMINOPHEN )04/01/2016 8 - GI Upset Date Reviewed: 05/04/2024 Reviewed by: Paulina Jay Ma, MA - Fully Assessed Reason for Visit: Patient Question [2807] Order(s):elacestrant (ORSERDU) 345 mg tabletTake 1 tablet (345 mg) by mouth once daily. with a meal.Disp: 30 tabletRfl: 5 Prescriptions as of 05/10/2024 - elacestrant (ORSERDU) 345 mg tablet Take 1 tablet (345 mg) by mouth once daily. with a meal. - hydrOXYzine pamoate (VISTARIL) 25 mg capsule TAKE 1 (ONE) CAPSULE BY MOUTH DAILY AT BEDTIME NEEDED FOR SLEEP - calcium carbonate/vitamin D3 (CALCIUM + D ORAL) Take 1 tablet by mouth once daily. - olaparib (LYNPARZA) 150 mg tablet Take 2 tablets (300mg) by mouth two times a day. - apixaban (ELIQUIS) 5 mg tab(s) Take 5 mg by mouth two times a day. - CINNAMON BARK ORAL Take 1 tablet by mouth once daily. - hydroCHLOROthiazide 12.5 mg tablet Take 12.5 mg by mouth every morning. - ginkgo biloba (GINKOBA ORAL) Take 120 mg by mouth once daily. - letrozole (FEMARA) 2.5 mg tablet Take 1 tablet by mouth once daily. - MULTI-VITAMIN ORAL Take 1 tablet by mouth once daily. - GLUCOSAMINE SULFATE (GLUCOSAMINE ORAL) Take 1 tablet by mouth once daily. - TURMERIC ROOT EXTRACT ORAL Take 450 mg by mouth once daily. Problem List As Of Date 05/06/2024 Noted Resolved Abnormal mammogram [R92.8] 04/01/2016 Malignant neoplasm of upper-outer quadrant of l*04/08/2016 Fat necrosis [M79.89] 01/06/2017 BRCA2 gene mutation positive [Z15.01, Z15.09] 04/07/2024 History of ovarian cancer [Z85.43] 04/07/2024 Pulmonary embolus (HCC) [I26.99] 04/07/2024 Carcinom (more content not included)... Normal [facility] CNOVSPon 05-04-2024 CNOVSP Visit (SP) Office (NELIDA) -------- JOYCE ROBLES ([id number]) 1955 F Date Time Provider Department 05/04/24 10:50 AM JOHN ALBRIGHT During your visit today, we recorded the following information about you: Temperature Pulse Blood pressure Weight 98.8 degrees 108/minute 142/84 83.5 kg John Albright DO 05/09/2024 9:30 AM Signed Oncologic problem(s): 1) MBC. 2) History of ovarian cancer. 3) Germline BRCA2 mutation. HPI: The patient is a 68-year-old female with a past medical history as outlined below. Diagnosed with ovarian cancer 10/2008. She underwent surgery followed by 6 cycles of adjuvant chemotherapy with carboplatin and paclitaxel. Completed adjuvant treatment 04/2009. Evidently had abdominal recurrence in 2012 and underwent a second debulking surgery in October 2012. She received further adjuvant treatment with Doxil and carboplatin. This was completed May 2013. In 2015 she underwent a LEFT breast lumpectomy with sentinel lymph node biopsy April 2016. The pathology demonstrated a 2.5 cm ER/MO positive, HER2 negative tumor in the left breast with micro metastasis in 1 of 3 sentinel lymph nodes (0.8 mm). Overall grade was 3. Lymphovascular invasion was present. Closest margin was 2 mm from anterior margin. ER was positive greater than 95%. MO positive greater than 95% with moderate to strong staining intensity. HER2 was equivocal 1-2+; nonamplified by FISH testing. She declined adjuvant chemotherapy but received adjuvant radiation. Was started on AI with anastrozole beginning 10/2016. Was found to have germline BRCA2 mutation. She had declined prophylactic mastectomy and had been undergoing screening for breast cancer. Recently presented to [facility] on 03/12/2024 with a complaint of increasing shortness of breath. Prior to that she had been on a 10-day trip to [place]. CTA of the chest same day demonstrated bilateral first, second, and third order pulmonary emboli worse on the left. There was a moderate to large right pleural effusion with compressive atelectasis of much of the right lung. Patient underwent thoracentesis on 03/14/2024. 2200 cc of jimmie/dark fluid was retrieved. Cytology demonstrated malignant cells consistent with breast primary. Immunostains significant for positive mamma globulin, GATA3, CK7, CK8, CK20 TTF-1 was negative. CEA was positive CA125 was negative. Fluid was also positive for MSSA. She was anticoagulated with apixaban. She was discharged and was seen for follow-up visit with Dr. Michaud on 03/22/2024. Most recent screening mammogram 01/2024. At initial consultation: Walking up to 2 miles a day. Lives in [facility]. Son in [place]--helps with house and yard. Daughter in [place]. about 3 years ago. No chest pain. 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 Presents for ongoing oncologic management. Interim history: She underwent a right-sided thoracentesis. Feels like she may not need to have it done again. Otherwise remains very active. Denies musculoskeletal pain. No neurologic symptoms. PAST MEDICAL HISTORY Diagnosis Date Breast cancer (HCC) Essential hypertension Hypoxemia Ovarian cancer (HCC) Pulmonary embolism (HCC) Osteoporosis. Had been on alendronate. PAST SURGICAL HISTORY Procedure Laterality Date BSO W/TIESHA AND OMENECTOMY FOR MALIGNANCY 07/14/2012 BX BREAST W/DEVICE 1ST LESION ULTRASOUND GUID Left 04/04/2016 U/S Bx outer mid left breast BX/EXC LYMPH NODE OPEN DEEP AXILLARY NODE Left 04/29/2016 HYSTERECTOMY HX LX PARTIAL COLECTOMY 07/14/2012 MASTECTOMY, PARTIAL Left 04/29/2016 PAST SURGICAL HISTORY OF Left ablation of vein of left leg for venous reflux hydrOXYzine pamoate (VISTARIL) 25 mg capsule TAKE 1 (ONE) CAPSULE BY MOUTH DAILY AT BEDTIME NEEDED FOR SLEEP calcium carbonate/vitamin D3 (CALCIUM + D ORAL) Take 1 tablet by mouth once daily. apixaban (ELIQUIS) 5 mg tab(s) Take 5 mg by mouth two times a day. CINNAMON BARK ORAL Take 1 tablet by mouth once daily. hydroCHLOROthiazide 12.5 mg tablet Take 12.5 mg by mouth every morning. ginkgo biloba (GINKOBA ORAL) Take 120 mg by mouth once daily. letrozole (FEMARA) 2.5 mg tablet Take 1 tablet by mouth once daily. MULTI-VITAMIN ORAL Take 1 tablet by mouth once daily. GLUCOSAMINE SULFATE (GLUCOSAMINE ORAL) Take 1 tablet by mouth once daily. TURMERIC ROOT EXTRACT ORAL Take 450 mg by mouth once daily. olaparib (LYNPARZA) 150 mg tablet Take 2 tablets (300mg) by mouth two times a day. ALLERGIES Allergen Reactions Demeral [Meperidine] GI Upset Percocet [Oxycodone* GI Upset Social History Tobacco Use Smoking status: Never Smokeless tobacco: Never Vaping Use Vaping status: Never Used Substance Use Topics Alcohol use: Yes Comment: occ Drug use: Neve (more content not included)... Normal [facility] Timothy 04-23-2024 SD Telephone (NELIDA) -------- JOYCE ROBLES ([id number]) 1955 F Date Time Provider Department 04/23/24 JIMMIE BURGER During your visit today, we recorded the following information about you: Jimmie Burger RN 04/23/2024 2:09 PM Signed ORAL ANTI-CANCER AGENTS EDUCATION patient called today for oral medication education of kisqali for Breast Cancer Anticipated/Scheduled start date: TBD Called patient. Unable to complete edu at this time. This nurse will call patient next Friday. VÍCTOR Magallon Amber, RN 04/26/2024 10:27 AM Signed Spoke to patient. Patient is over income and needs to fill out PAP form which she might not qualify for with her being over income. Patient would like to set up a time to come in and fill out the paperwork with Devyn. Call was transferred to [facility] to set up a time for patient to come into our office. Patient aware this nurse will review drug information once she knows she will receive. Patient was agreeable to this. VÍCTOR Magallon Samantha, LISW 04/27/2024 2:21 PM Signed Met with pt this date and assisted in completing Kisqali PAP. SW answered all questions about application process and the program. Pt states her OOP for Kisqali without assistance will be $2500/month. SW also discussed with pt other options if declined for PAP and also discussed the $2,000 Medicare OOP max for all prescriptions in 2024. No other needs identified. 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 - apixaban (ELIQUIS) 5 mg tab(s) Take 5 mg by mouth two times a day. - CINNAMON BARK ORAL Take 1 tablet by mouth once daily. - hydroCHLOROthiazide 12.5 mg tablet Take 12.5 mg by mouth every morning. - ginkgo biloba (GINKOBA ORAL) Take 1 tablet by mouth once daily. - letrozole (FEMARA) 2.5 mg tablet Take 1 tablet by mouth once daily. - MULTI-VITAMIN ORAL Take 1 tablet by mouth once daily. - GLUCOSAMINE SULFATE (GLUCOSAMINE ORAL) Take 1 tablet by mouth once daily. - TURMERIC ROOT EXTRACT ORAL Take 1 tablet by mouth once daily. Problem List As Of Date 04/23/2024 Noted Resolved Abnormal mammogram [R92.8] 04/01/2016 Malignant neoplasm of upper-outer quadrant of l*04/08/2016 Fat necrosis [M79.89] 01/06/2017 BRCA2 gene mutation positive [Z15.01, Z15.09] 04/07/2024 History of ovarian cancer [Z85.43] 04/07/2024 Pulmonary embolus (HCC) [I26.99] 04/07/2024 Encounter Status:Closed by TIFF[facility]UIZ [facility] (NELIDA[facility] -------- JOYCE ROBLES ([id number]) 1955 F Date Time Provider Department 04/20/24 JOHN ALBRIGHT During your visit today, we recorded the following information about you: Paz Orlando 2024 10:08 AM Signed Yoel from [facility] called requesting demographics, new order for pet-changing from initial to subsequent and copy of pathology from 03/2024. Please fax to [phone] Joyce Mejía LPN 2024 10:52 AM Signed Information all faxed. Did question why new order? And instructed them to call, given our direct line. ELA Garcia Pamela S, LPN 2024 11:32 AM Signed New order pended, Spoke with iLzet from [facility] , since pt. Has had previous treatment the PET is always subsequent , not initial. New order pended . Dr. Albright please sign new pended order so can be faxed to [facility] [phone] ELA Garcia Paul A, DO 2024 1:50 PM Signed I signed the order for the new PET scan and sent the prescription for Kisqali. DO Damion Bautista Kara, LPN 2024 2:12 PM Signed Faxed order. 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 Then take a 7-day rest period to complete a 28-day treatment cycle.Disp: 63 tabletRfl: 5 Prescriptions as of 2024 - ribociclib (KISQALI) 600 mg/day (200 mg x 3) Take 3 tablets (600 mg) by mouth once daily. Then take a 7-day rest period to complete a 28-day treatment cycle. - apixaban (ELIQUIS) 5 mg tab(s) Take 5 mg by mouth two times a day. - CINNAMON BARK ORAL Take 1 tablet by mouth once daily. - hydroCHLOROthiazide 12.5 mg tablet Take 12.5 mg by mouth every morning. - ginkgo biloba (GINKOBA ORAL) Take 1 tablet by mouth once daily. - letrozole (FEMARA) 2.5 mg tablet Take 1 tablet by mouth once daily. - MULTI-VITAMIN ORAL Take 1 tablet by mouth once daily. - GLUCOSAMINE SULFATE (GLUCOSAMINE ORAL) Take 1 tablet by mouth once daily. - TURMERIC ROOT EXTRACT ORAL Take 1 tablet by mouth once daily. Problem List As Of Date 2024 Noted Resolved Abnormal mammogram [R92.8] 04/01/2016 Malignant neoplasm of upper-outer quadrant of l*04/08/2016 Fat necrosis [M79.89] 01/06/2017 BRCA2 gene mutation positive [Z15.01, Z15.09] 04/07/2024 History of ovarian cancer [Z85.43] 04/07/2024 Pulmonary embolus (HCC) [I26.99] 04/07/2024 Prescriptions ordered this encounter Disp Refills Start End KISQALI 600 MG/DAY (200 MG X 3) TABL* 63 t* 5 2024 Class: [facility] Route: ORAL Sig: Take 3 tablets (600 mg) by mouth once daily. Then take a 7-day rest period to complete a 28-day treatment cycle. Encounter Status:Closed by SHANON BRUNO on 04/20/24 [facility] Timothy 04-14-2024 CNPN Telephone (NELIDA) -------- JOYCE ROBLES ([id number]) 1955 F Date Time Provider Department 04/14/24 JIMMIE BURGER During your visit today, we recorded the following information about you: Jimmie Burger RN 04/14/2024 4:05 PM Signed Per OV notes: -Rx Kisqali after EKG. Verzenio if QT still prolonged. Are we repeating an EKG? In [facility] last week, Kisqali was discussed but this has not been ordered. Thank you. VÍCTOR Magallon Paul A, DO 04/15/2024 10:14 AM Signed Sorry, yes repeat EKG. her QTc was significantly prolonged on an EKG done 03/12/2024 at [facility] when she was admitted for PE. DO Kd Bautista Pamela LolaELA 04/15/2024 10:22 AM Signed Left detailed message on identified voicemail , need repeat EKG, PSS please reach out to pt. To get scheduled. ELA Garcia Stephanie 04/15/2024 11:31 AM Signed Left message for patient to return call. When she calls, please schedule an EKG on the port schedule. Ivy Darden 04/16/2024 9:24 AM Signed Patient returned call and scheduled EKG today. 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 - CINNAMON BARK ORAL Take 1 tablet by mouth once daily. - hydroCHLOROthiazide 12.5 mg tablet Take 12.5 mg by mouth every morning. - ginkgo biloba (GINKOBA ORAL) Take 1 tablet by mouth once daily. - letrozole (FEMARA) 2.5 mg tablet Take 1 tablet by mouth once daily. - MULTI-VITAMIN ORAL Take 1 tablet by mouth once daily. - GLUCOSAMINE SULFATE (GLUCOSAMINE ORAL) Take 1 tablet by mouth once daily. - TURMERIC ROOT EXTRACT ORAL Take 1 tablet by mouth once daily. Problem List As Of Date 04/14/2024 Noted Resolved Abnormal mammogram [R92.8] 04/01/2016 Malignant neoplasm of upper-outer quadrant of l*04/08/2016 Fat necrosis [M79.89] 01/06/2017 BRCA2 gene mutation positive [Z15.01, Z15.09] 04/07/2024 History of ovarian cancer [Z85.43] 04/07/2024 Pulmonary embolus (HCC) [I26.99] 04/07/2024 Encounter Status:Closed by RENAY CROWE on 04/16/24 [facility] CNPSania 04-08-2024 CNPN Telephone (HEMAWS) -------- JOYCE ROBLES ([id number]) 1955 F Date Time Provider Department 04/08/24 JOHN ALBRIGHT During your visit today, we recorded the following information about you: John Albright DO 04/08/2024 4:14 PM Signed Can let her know the x-ray from yesterday showed that she has build up quite a bit of fluid since the time she had the thoracentesis on 03/14. I think it would be a good idea to go ahead and schedule for another right-sided ultrasound-guided thoracentesis at [facility]. Also, I was under the impression she was taking Eliquis but is not on her med list. Please inquire about that. DO Mars Bautista Amber, RN 04/08/2024 4:58 PM Signed Called patients mobile phone, no answer, left a VM requesting a call back to our office. VÍCTOR Magallon Pamela S, LPN 04/09/2024 9:12 AM Addendum Spoke with pt. Given information concerning thoracentesis @ [facility] . Scheduled for 03/12 @ 8 am. Pt. Also does take Eliquis 5 mg 2 tablets BID, has been taking since 03/14. Questioned pt. On dose as to wether or not she was to decrease this dose after starting , She was not sure and wasn't instructed to. Found in discharge summary she was to decrease after 13 doses. Will make pt. Aware after orders signed and instructions given for Eliquis prior to procedure. Added to medication list Please sign orders and does pt , need to be off Eliquis prior to Thoracentesis on Friday? Discharge Orders/Prescriptions Prescriptions: New Eliquis 5 mg tablet 10 mg PO BID Qty: 68 0RF Rx Instructions: 2 tabs twice a day for a total of 13 doses starting tonight, then decrease the dose to 5 mg twice a day Pt. Instructed she is to take Eliquis 5 mg BID, hold this Friday, Friday , and Friday. Pt. Voiced understanding. ELA Garcia Paul A, DO 04/09/2024 10:03 AM Signed Signed. 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 - CINNAMON BARK ORAL Take 1 tablet by mouth once daily. - hydroCHLOROthiazide 12.5 mg tablet Take 12.5 mg by mouth every morning. - ginkgo biloba (GINKOBA ORAL) Take 1 tablet by mouth once daily. - letrozole (FEMARA) 2.5 mg tablet Take 1 tablet by mouth once daily. - MULTI-VITAMIN ORAL Take 1 tablet by mouth once daily. - GLUCOSAMINE SULFATE (GLUCOSAMINE ORAL) Take 1 tablet by mouth once daily. - TURMERIC ROOT EXTRACT ORAL Take 1 tablet by mouth once daily. Problem List As Of Date 04/08/2024 Noted Resolved Abnormal mammogram [R92.8] 04/01/2016 Malignant neoplasm of upper-outer quadrant of l*04/08/2016 Fat necrosis [M79.89] 01/06/2017 BRCA2 gene mutation positive [Z15.01, Z15.09] 04/07/2024 History of ovarian cancer [Z85.43] 04/07/2024 Pulmonary embolus (HCC) [I26.99] 04/07/2024 Encounter Status:Closed by JOYCE MEJÍA on 04/09/[address] [facility] XR Chest PA and Lateralon IMPRESSION: Large right-sided and small left-sided pleural effusion. Underlying atelectasis right greater than left Dessert Cup Machine Feeder: KEVIN Transcribe Date/Time: Apr 08 2024 6:58A Dictated by : SIMIN OLIVARES MD This examination was interpreted and the report reviewed and electronically signed by: SIMIN OLIVARES MD on Apr 08 2024 7:00AM [facility] DIVISION OF RADIOLOGY * * *Final Report* * * DATE OF EXAM: Apr 07 2024 2:35PM [id number] - XR CHEST 2V FRONTAL/LAT / PROCEDURE REASON: multiple diagnoses * * * * Physician Interpretation * * * * EXAMINATION: CHEST RADIOGRAPH (2 VIEW FRONTAL & LATERAL) CLINICAL HISTORY: Malignant neoplasm of upper-outer quadrant of left breast in female, 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 RESULT: Lines, tubes, and devices: None. Lungs and pleura: Large right-sided and small left-sided pleural effusion and underlying atelectasis. The right hemithorax is approximately two thirds opacified. No pneumothorax. Cardiomediastinal silhouette: Normal cardiomediastinal silhouette. Bones and soft tissues: Unremarkable. DIVISION OF RADIOLOGY Provider, [facility] - 04/08/2024 * * *Final Report* * * DATE OF EXAM: Apr 07 2024 2:35PM [id number] - XR CHEST 2V FRONTAL/LAT / PROCEDURE REASON: multiple diagnoses * * * * Physician Interpretation * * * * EXAMINATION: CHEST RADIOGRAPH (2 VIEW FRONTAL & LATERAL) CLINICAL HISTORY: Malignant neoplasm of upper-outer quadrant of left breast in female, 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 RESULT: Lines, tubes, and devices: None. Lungs and pleura: Large right-sided and small left-sided pleural effusion and underlying atelectasis. The right hemithorax is approximately two thirds opacified. No pneumothorax. Cardiomediastinal silhouette: Normal cardiomediastinal silhouette. Bones and soft tissues: Unremarkable. IMPRESSION IMPRESSION: Large right-sided and small left-sided pleural effusion. Underlying atelectasis right greater than left Dessert Cup Machine Feeder: PSCB Transcribe Date/Time: Apr 08 2024 6:58A Dictated by : SIMIN OLIVARES MD This examination was interpreted and the report reviewed and electronically signed by: SIMIN OLIVARES MD on Apr 08 2024 7:00AM EST [facility] XR Chest PA and LateralOrder ed By: [facility] Provider on 04-08-2024 [facility] CNOVSPon 04-07-2024 CNOVSP Visit (SP) Office (HEMAWS) -------- JOYCE ROBLES ([id number]) 1955 F Date Time Provider Department 04/07/24 1:00 PM JOHN ALBRIGHT During your visit today, we recorded the following information about you: Temperature Pulse Blood pressure Weight 98.4 degrees 111/minute 131/84 84.8 kg Height 1.63 m John Albright DO 04/07/2024 2:08 PM Signed Joyce Pantoja Travis is a 68 year old female referred by Dr. Teetee Michaud for history of breast and ovarian cancer.. HPI: The patient is a 68-year-old female with a past medical history as outlined below. Diagnosed with ovarian cancer 10/2008. She underwent surgery followed by 6 cycles of adjuvant chemotherapy with carboplatin and paclitaxel. Completed adjuvant treatment 04/2009. Evidently had abdominal recurrence in 2012 and underwent a second debulking surgery in October 2012. She received further adjuvant treatment with Doxil and carboplatin. This was completed May 2013. In 2015 she underwent a left breast lumpectomy with sentinel lymph node biopsy April 2016. The pathology demonstrated a 2.5 cm ER/MO positive, HER2 negative tumor in the left breast with micro metastasis in 1 of 3 sentinel lymph nodes (0.8 mm). Overall grade was 3. Lymphovascular invasion was present. Closest margin was 2 mm from anterior margin. ER was positive greater than 95%. MO positive greater than 95% with moderate to strong staining intensity. HER2 was equivocal 1-2+; nonamplified by FISH testing. She declined adjuvant chemotherapy but received adjuvant radiation. Was started on AI with anastrozole beginning 10/2016. Was found to have germline BRCA2 mutation. She had declined prophylactic mastectomy and had been undergoing screening for breast cancer. Recently presented to [facility] on 03/12/2024 with a complaint of increasing shortness of breath. Prior to that she had been on a 10-day trip to [place]. CTA of the chest same day demonstrated bilateral first, second, and third order pulmonary emboli worse on the left. There was a moderate to large right pleural effusion with compressive atelectasis of much of the right lung. Patient underwent thoracentesis on 03/14/2024. 2200 cc of jimmie/dark fluid was retrieved. Cytology demonstrated malignant cells consistent with breast primary. Immunostains significant for positive mamma globulin, GATA3, CK7, CK8, CK20 TTF-1 was negative. CEA was positive CA125 was negative. Fluid was also positive for MSSA. She was anticoagulated with apixaban. She was discharged and was seen for follow-up visit with Dr. Michaud on 03/22/2024. Most recent screening mammogram 01/2024. Walking up to 2 miles a day. Lives in town. Son in [place]--helps with house and yard. Daughter in [place]. about 3 years ago. No chest pain. 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 PAST MEDICAL HISTORY Diagnosis Date Breast cancer (HCC) Essential hypertension Hypoxemia Ovarian cancer (HCC) Pulmonary embolism (HCC) Osteoporosis. Had been on alendronate. PAST SURGICAL HISTORY Procedure Laterality Date BSO W/TIESHA AND OMENECTOMY FOR MALIGNANCY 07/14/2012 BX BREAST W/DEVICE 1ST LESION ULTRASOUND GUID Left 04/04/2016 U/S Bx outer mid left breast BX/EXC LYMPH NODE OPEN DEEP AXILLARY NODE Left 04/29/2016 HYSTERECTOMY HX LX PARTIAL COLECTOMY 07/14/2012 MASTECTOMY, PARTIAL Left 04/29/2016 PAST SURGICAL HISTORY OF Left ablation of vein of left leg for venous reflux MULTI-VITAMIN ORAL Take 1 tablet by mouth once daily. GLUCOSAMINE SULFATE (GLUCOSAMINE ORAL) Take 1 tablet by mouth once daily. TURMERIC ROOT EXTRACT ORAL Take 1 tablet by mouth once daily. anastrozole (ARIMIDEX) 1 mg tablet (Patient not taking: Reported on 04/07/2024) zolpidem (AMBIEN) 10 mg tab (Patient not taking: Reported on 04/07/2024) cyclobenzaprine (FLEXERIL) 10 mg tablet ACAI JUAREZ EXTRACT ORAL Take by mouth. (Patient not taking: Reported on 04/07/2024) ALLERGIES Allergen Reactions Demeral [Meperidine] GI Upset Percocet [Oxycodone* GI Upset Social History Tobacco Use Smoking status: Never Smokeless tobacco: Never Vaping Use Vaping status: Never Used Substance Use Topics Alcohol use: Yes Comment: occ Drug use: Never FAMILY HISTORY Problem Relation Age of Onset Hypertension Mother other (pulmonary embolism) Mother Stroke Father Heart Brother Heart Attack Brother Colon Cancer Maternal Grandmother Heart Maternal Grandfather Prostate Cancer Paternal Grandfather Breast Cancer Maternal Aunt Cancer Maternal Aunt liver REVIEW OF SYSTEMS: Constitutional: No episodes of fever and night sweats. Not significantly fatigued. Normal appetite. Neuro: No CHU, vertigo, dizziness and imbalance. No symptoms of neuropathy. HEENT: No recent change in voice, vision or hear (more content not included)... 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 RESULT: Lines, tubes, and devices: None. Lungs and pleura: Large right-sided and small left-sided pleural effusion and underlying atelectasis. The right hemithorax is approximately two thirds opacified. No pneumothorax. Cardiomediastinal silhouette: Normal cardiomediastinal silhouette. Bones and soft tissues: Unremarkable. IMPRESSION: Large right-sided and small left-sided pleural effusion. Underlying atelectasis right greater than left Dessert Cup Machine Feeder: PSCB Transcribe Date/Time: Apr 08 2024 6:58A Dictated by : SIMIN OLIVARES MD This examination was interpreted and the report reviewed and electronically signed by: SIMIN OLIVARES MD on Apr 08 2024 7:00AM EST [id number] Normal [facility] XR Chest PA and Lateralon Radiology [facility]ative[facility] [place] Telephone (NELIDA) -------- JOYCE ROBLES ([id number]) 1955 F Date Time Provider Department 03/26/24 JOHN ALBRIGHT During your visit today, we recorded the following information about you: Selin Garnica 03/26/2024 4:44 PM Signed LVM for patient to return the call. When patient calls please schedule with either provider 1st available. 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 - GLUCOSAMINE SULFATE (GLUCOSAMINE ORAL) Take by mouth. - TURMERIC ROOT EXTRACT ORAL Take by mouth. - ACAI JUAREZ EXTRACT ORAL Take by mouth. Problem List As Of Date 03/26/2024 Noted Resolved Abnormal mammogram [R92.8] 04/01/2016 Malignant neoplasm of upper-outer quadrant of l*04/08/2016 Fat necrosis [M79.89] 01/06/2017 Encounter Status:Closed by RENAY CROWE on 03/29/[address] [facility] Vital Signs Date Time Vital Sign Value Performing Clinician Faci litmadison 05-04-2024 10:46-0400 Body mass index (BMI) [Ratio] 31.41 kg/m2 John [employer] DO Work Phone: [facility] 05-04-2024 10:46-0400 Body temperature 98.8 [degF] John [employer] DO Work Phone: [facility] 05-04-2024 10:46-0400 Body weight 83.46 kg John [employer]Mono[employer] Work Phone: [facility] 05-04-2024 10:46-0400 Diastolic blood pressure 84 mm[Hg] John [employer] Work Phone: [facility] 05-04-2024 10:46-0400 Heart rate 108 /min John Masci DO Work Phone: [facility] 05-04-2024 10:46-0400 SaO2% (BldA) [Mass fraction] 95 % John Masci DO Work Phone: [facility] 05-04-2024 10:46-0400 Systolic blood pressure 142 mm[Hg] John Masci DO Work Phone: [facility] 04-07-2024 12:59-0400 Body height 163 cm John Masci DO Work Phone: [facility] 04-07-2024 12:59-0400 Body mass index (BMI) [Ratio] 31.93 kg/m2 John Masci DO Work Phone: [facility] 04-07-2024 12:59-0400 Body temperature 98.4 [degF] John Alexi DO Work Phone: [facility] 04-07-2024 12:59-0400 Body weight 84.82 kg John Masci DO Work Phone: [facility] 04-07-2024 12:59-0400 Diastolic blood pressure 84 mm[Hg] John Masci DO Work Phone: [facility] 04-07-2024 12:59-0400 Heart rate 111 /min John Alexi DO Work Phone: [facility] 04-07-2024 12:59-0400 SaO2% (BldA) [Mass fraction] 95 % John Masci DO Work Phone: [facility] 04-07-2024 12:59-0400 Systolic blood pressure 131 mm[Hg] John Masci DO Work Phone: [facility] Encounters Encounter Date Encounter Type Care Provider Facility Start: 05-10-2024 End: 05-10-2024 ambulatory Vandana Sawyer [facility] Start: 05-10-2024 End: 05-10-2024 Patient encounter procedure Vandana Sawyer [facility] Comment on above: SPP Oral Oncology/he matology - Treatment Referral (Orserdu 345mg); [place]) Start: 05-07-2024 End: 05-10-2024 Telephone encounter Jimmie Burger RN Hematology/Oncology Comment on above: Information Technology Administrator - O ther (Oral Anti-Cancer Education (lynparza) ) Medication Problem Start: 05-06-2024 End: 05-07-2024 Telephone encounter John Albright DO Work Phone: Hematology/Oncology Comment on above: Patient Question Start: 05-04-2024 End: 05-04-2024 Patient encounter procedure Vandana Sawyer [facility] Comment on above: SPP Oral Oncology/he matology - Treatment Referral (Lynparza 150mg); [place] Authorization ([place]) Start: 05-04-2024 End: 05-04-2024 ambulatory Vandana Sawyer [facility] Start: 05-04-2024 End: 05-04-2024 Office outpatient visit 25 minutes John Albright DO Work Phone: Hematology/Oncology Comment on above: Malignant neoplasm o f upper-outer quadrant of left breast in female, estrogen receptor positive (HCC) (Primary Dx); BRCA2 gene mutation positive; Malignant pleural effusion; Other chronic pulmonary embolism without acute cor pulmonale (HCC); History of ovarian cancer; 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) Start: 04-23-2024 End: 04-27-2024 Telephone encounter Jimmie Burger RN Hematology/Oncology Comment on above: Information Technology Administrator - O ther (Oral Anti-Cancer Agents (Kisqali) ) Start: 2024 End: 2024 ambulatory Vandana Sawyer [facility] Start: 2024 End: 2024 Patient encounter procedure Vandana Sawyer [facility] Comment on above: SPP Oral Oncology/he matology - Treatment Referral (Kisqali 600mg/day); [place]ization ([place]) Start: 2024 End: 2024 Telephone encounter John Albright DO Work Phone: Hematology/Oncology Comment on above: Electronic Communica tion Start: 04-16-2024 End: 04-16-2024 ambulatory Lab[facility] [facility] Work Phone: Hematology/Oncology Comment on above: Malignant neoplasm o f upper-outer quadrant of left breast in female, estrogen receptor positive (HCC) (Primary Dx) Start: 04-14-2024 End: 04-16-2024 Telephone encounter Jimmie Burger RN Hematology/Oncology Comment on above: Information Technology Administrator - O ther (Kisqali) Start: 04-08-2024 End: 04-09-2024 Telephone encounter John Albright DO Work Phone: Hematology/Oncology Comment on above: Results Start: 04-07-2024 End: 04-07-2024 Subsequent hospital visit by physician [facility] Taco Abrams Work Phone: Radiology Comment on above: Malignant neoplasm o f upper-outer quadrant of left breast in female, estrogen receptor positive (HCC) [C50.412, Z17.0] Start: 04-07-2024 End: 04-07-2024 ambulatory John Albright DO Work Phone: Hematology/Oncology Comment on above: Malignant neoplasm o f upper-outer quadrant of left breast in female, estrogen receptor positive (HCC) (Primary Dx); Malignant pleural effusion; BRCA2 gene mutation positive; History of ovarian cancer; Other chronic pulmonary embolism without acute cor pulmonale (HCC) Start: 04-07-2024 End: 04-07-2024 Patient encounter procedure John Albright DO Work Phone: Hematology/Oncology Start: 03-26-2024 End: 03-29-2024 Telephone encounter John Albright DO Work Phone: Hematology/Oncology Comment on above: Appointment Start: 11-21-2017 End: 11-21-2017 Ambulatory VÍCTOR CHAVEZ [facility] Procedures Date Procedure Procedure Detail Performing Clinician Start: 04-16-2024 Ecg routine ecg w/le ast 12 lds i&r only [facility] Provider Start: 04-07-2024 Radiologic exam ches t 2 views John Albright DO Work Phone: Plan of Treatment Date Care Activity Detail Author Start: 06-01-2031 Urine microalbumin profile DTaP,Tdap,Td Vaccine (2 - Td or Tdap) [facility] Start: 09-25-2025 Screening for malign ant neoplasm of colon [facility] Start: 05-04-2024 End: 05-04-2024 ambulatory 05/04/2024 10:50 AM EDT Visit (SP) Office Hematology/Oncology [address] [place] [address] John Albright, DO [address] [address] OV-PET 04/27 & MRI 04/28 @ [facility]* Hematology/Oncology Comment on above: OV-PET 04/27 & MRI 1 @ [facility]* Start: 04-07-2024 End: 04-07-2024 ambulatory 04/07/2024 1:00 PM EDT Visit (SP) Office Hematology/Oncology [address] [place] [address] John Albright, DO [address] [address] 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/H/O BREAST/H/O OVARIAN/ THORACENTESIS + MET, BR/REF BY TEETEE MICHAUD* 1st avail Hematology/Oncology Comment on above: 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/H/O BREAST/H/O OV KAUSHIK/ THORACENTESIS + MET, BR/REF BY TEETEE MICHAUD* 1st avail Start: 03-14-2024 Covid-19 Vaccine ( season) Covid-19 Vaccine ( season) [facility] Start: 03-14-2024 Covid-19 Vaccine ( season) Covid-19 Vaccine ( season) [facility] Start: 03-14-2024 Influenza vaccination Influenza Vacc ine (#1) [facility] Start: 07-14-2023 Advance Directive Discussion Advance Directive Discussion [facility] Start: 05-15-2021 Pneumococcal Vaccine : 65+ (2 of 2 - PPSV23 or PCV20) Pneumococcal Vaccine: 65+ (2 of 2 - PPSV23 or PCV20) [facility] Start: 07-10-2020 Pneumococcal Vaccine : 65+ (2 of 2 - PPSV23 or PCV20) Pneumococcal Vaccine: 65+ (2 of 2 - PPSV23 or PCV20) [facility] Start: 2019 Pneumococcal Vaccine : 65+ (1 of 1 - PCV) Pneumococcal Vaccine: 65+ (1 of 1 - PCV) [facility] Start: 2019 Screening for osteoporosis Bone Density Screening [facility] Start: 2014 RSV Vaccine (1 - 1-d ose 60+ series) RSV Vaccine (1 - 1-dose 60+ series) [facility] Start: 2004 Shingrix Vaccine (1 of 2) Shingrix Vaccine (1 of 2) [facility] Start: 1999 Diabetes Screening Diabetes Screenin g [facility] Start: 1999 Lipid panel Lipid Screening [facility] Start: 1999 Screening for malign ant neoplasm of colon [facility] Start: 1994 Screening for malign ant neoplasm of breast Mammogram Screening [facility] Start: 1972 Anxiety Screening Anxiety Screening [facility] Start: 1972 Depression Screening Depression Scre ening [facility] Start: 1972 Hepatitis C screening Hepatitis C Sc reening [facility] Start: 1965 Screening for malign ant neoplasm of cervix Cervical Cancer Screening [facility] End: 04-15-2025 ECG COMPLETE ECG COMPLETE ECG Routine Malignant neoplasm of upper-outer quadrant of left breast in female, estrogen receptor positive (HCC) 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) 1 Occurrences starting 04/15/2024 until 04/15/2025 [facility] Work Phone: Comment on above: 1 Occurrences starti ng 04/15/2024 until 04/15/2025 ECG COMPLETE ECG COMPLETE ECG 04/16/2024 1:54 PM EDT [facility] Guidance for thoracentesis of Chest IMAGING GUIDED THORACENTESIS Radiology Routine Malignant pleural effusion Ordered: 04/09/2024 [facility] Work Phone: Comment on above: Ordered: 04/09/2024 End: 06-03-2025 Guidance for thoracentesis of Chest IMAGING GUIDED THORACENTESIS Radiology Routine Malignant pleural effusion Every other week for 26 Occurrences starting 05/04/2024 until 06/03/2025 [facility] Work Phone: Comment on above: Every other week for 26 Occurrences starting 05/04/2024 until 06/03/2025 End: 05-07-2025 MR Brain WO and W contrast IV MRI BRAIN WO/W IVCON Radiology Routine Malignant neoplasm of upper-outer quadrant of left breast in female, estrogen receptor positive (HCC) BRCA2 gene mutation positive History of ovarian cancer 1 Occurrences starting 04/07/2024 until 05/07/2025 [facility] Comment on above: 1 Occurrences starti ng 04/07/2024 until 05/07/2025 End: 05-07-2025 PET+CT Guidance for localization of tumor of Skull base to mid-thigh-- W 18F-FDG IV NM PET/CT SKULL-THIGH INITIAL Radiology Routine Malignant neoplasm of upper-outer quadrant of left breast in female, estrogen receptor positive (HCC) BRCA2 gene mutation positive History of ovarian cancer 1 Occurrences starting 04/07/2024 until 05/07/2025 [facility] Comment on above: 1 Occurrences starti ng 04/07/2024 until 05/07/2025 End: 05-20-2025 PET+CT Guidance for localization of tumor of Skull base to mid-thigh-- W 18F-FDG IV NM PET/CT SKULL-THIGH SUBSEQUENT Radiology Routine Malignant neoplasm of upper-outer quadrant of left breast in female, estrogen receptor positive (HCC) Malignant pleural effusion 1 Occurrences starting 2024 until 05/20/2025 [facility] Work Phone: Comment on above: 1 Occurrences starti ng 2024 until 05/20/2025 End: 05-07-2025 XR Chest PA and Lateral XR CHEST 2V FRONTAL/LAT Radiology Routine Malignant neoplasm of upper-outer quadrant of left breast in female, estrogen receptor positive (HCC) Malignant pleural effusion BRCA2 gene mutation positive History of ovarian cancer Other chronic pulmonary embolism without acute cor pulmonale (HCC) 1 Occurrences starting 04/07/2024 until 05/07/2025 [facility] Work Phone: Comment on above: 1 Occurrences starti ng 04/07/2024 until 05/07/2025 XR Chest PA and Lateral XR CHEST 2V FRONTAL/LAT Radiology Routine Malignant neoplasm of upper-outer quadrant of left breast in female, estrogen receptor positive (HCC) Malignant pleural effusion BRCA2 gene mutation positive History of ovarian cancer Other chronic pulmonary embolism without acute cor pulmonale (HCC) 04/07/2024 2:35 PM EDT [facility] Immunizations Immunization Date Immunization Notes Care Provider Ricky colon 03-24-2023 influenza virus vacc ine, unspecified formulation John Albright DO Work Phone: [facility] Payers Date Payer Category Payer Private Health Insurance [facility] AARP SUPPLEMENT [id number] 2023-Present [phone] [address] [place] [address] Indemnity [id number] 2023 Unknown [id number] 2019 Medicare MEDICARE MEDICAR E A AND B [id number] 2019-Present [phone] [place] [address] Medicare [id number] 2019 Medicare [id number] Unknown [id number] Social History Date Type Detail Facility Start: 05-28-2016 End: 04-07-2024 Tobacco smoking status NHIS Never smoked tobacco [facility] Start: 01-30-2017 Alcoholic beverage intake Not Asked [facility] Start: 01-11-2018 End: 04-07-2024 History of Social function [facility] Start: 01-11-2018 End: 04-07-2024 Tobacco use panel [facility] Start: 1955 Sex assigned at Not on file C [facility] Start: 04-07-2024 Tobacco use and exposure Smoke less tobacco non-user [facility] Start: 04-07-2024 End: 05-04-2024 Alcoholic beverage intake Current drinker of alcohol (finding) [facility] National Score (1-10 0), lower number is lower risk 50 [facility] Start: 04-07-2024 Alcohol Comment occ [facility] Clinical Notes 03-26-2024 to 05-10-2024 Telephone Encounter - Jimmie Burger RN - 05/10/2024 8:45 AM EDTTelephone Encounter - John Albright DO - 05/09/2024 9:59 AM EDTTelephone Encounter - Jimmie Burger RN - 05/07/2024 3:35 PM EDT Note Date & Type Note Facility 05-10-2024 Miscellaneous Notes Patient informed of Dr. Albright's response, stated understanding. Jimmie Burger RN Hold one day prior to extractions. Resume day after extractions if no bleeding issues. John Albright DO [facility] Care Coordination FOLLOW-UP NOTE Patient identified by name and date of . YES Spoke to patient Summary: (Reason for follow-up) Patient stated she contacted her PCP because he prescribed Eliquis. PCP advised patient to call our office to see how long she should hold Eliquis prior to dental extractions. Patient will be seeing an oral surgeon who is at [facility]. . Care Coordination Plan: will follow-up with patient next week Jimmie Burger RN May 07, 2024 Patient called stating she needs tooth extraction and has questions about taking eliquis. documented in this encounter [facility] 05-10-2024 Telephone encounter Note Patient informed of Dr. Albright's response, stated understanding. Jimmie Burger RN [facility] 05-10-2024 History of Presen t illness Narrative [facility] received prescription(s) for Orserdu from Dr. Albright's office. Benefits investigation was conducted, indicating that a prior authorization is required by patient's insurance plan with [employer]. Encounter will be updated once prior authorization has been submitted by [facility]. [facility] P: / F: documented in this encounter [facility] 05-10-2024 Note HNO ID: [id number] Author: ?, ?, ? Service: ? Author Type: ? Type: Progress Notes Filed: 05/10/2024 07:16 Note Text: [facility] received prescription(s) for Orserdu from Dr. Albright's office. Benefits investigation was conducted, indicating that a prior authorization is required by patient's insurance plan with [employer]. Encounter will be updated once prior authorization has been submitted by [facility]. Komal Gutierrez [facility], Oncology P: / F: [facility] 05-09-2024 Telephone encounter Note Hold one day prior to extractions. Resume day after extractions if no bleeding issues. John Albright DO [facility] 05-07-2024 Telephone encounter Note ORAL ANTI-CANCER AGENTS EDUCATION patient called today for oral medication education of lynparza for Breast Cancer Anticipated/Scheduled start date: TBD READINESS TO LEARN Cognitive Ability: Alert and oriented Motivation to Learn: Interested Family Support: Unable to assess - Family not present Instruction Provided to: Patient Patient learns best by: Multiple Methods Factors affecting learning: None Physical limitation affecting learning: None RODRIGUEZ ASSESSMENT: 1.) Verified that patient knows that the oral agents are for cancer and are taken by mouth. Yes 2.) Medication review completed during visit. No 3.) Patient is able to swallow pills. Yes 4.) Patient is able to read the drug label/information. Yes 5.) Patient is able to open the medication bottles and packages. Yes 6.) Has patient taken other pills for cancer? YES, please explain: Anastrozole 7.) Is patient experiencing any symptoms that would affect their ability to keep down pills, for example nausea or vomiting? No 8.) Verified that patient understands prescription delivery, benefit investigation and refill process. Yes DRUG-SPECIFIC EDUCATION: 1.) Verified patient knows the drug name. Yes 2.) Verified patient understands the dose and schedule of oral anti cancer agent. Yes 3.) Verified patient knows what to do if a medication dose is missed. Yes 4.) Verified patient understands where to store the drug. Yes 5.) Verified patient understands potential side effects and how to manage them. Yes 6.)Verified patient understands handling precautions of oral anti cancer agent. Yes 7.) Verified patient was given written instructions and understands when and whom to call with questions. Yes 8.) Verified patient understands where and how to return drug. Yes 9.) Verified patient received drug specific adult education handout and neutropenic wallet card Yes EVALUATE: The patient demonstrated an understanding of all the above education using the teach-back method. Yes Instructed to call us with any questions, concerns, and/or unresolved symptoms. Will continue to follow up and provide reinforcement of teaching topics as needed. Jimmie Burger RN T [facility] 05-07-2024 Miscellaneous Notes ORAL ANTI-CANCER AGENTS EDUCATION patient called today for oral medication education of lynparza for Breast Cancer Anticipated/Scheduled start date: TBD READINESS TO LEARN Cognitive Ability: Alert and oriented Motivation to Learn: Interested Family Support: Unable to assess - Family not present Instruction Provided to: Patient Patient learns best by: Multiple Methods Factors affecting learning: None Physical limitation affecting learning: None RODRIGUEZ ASSESSMENT: 1.) Verified that patient knows that the oral agents are for cancer and are taken by mouth. Yes 2.) Medication review completed during visit. No 3.) Patient is able to swallow pills. Yes 4.) Patient is able to read the drug label/information. Yes 5.) Patient is able to open the medication bottles and packages. Yes 6.) Has patient taken other pills for cancer? YES, please explain: Anastrozole 7.) Is patient experiencing any symptoms that would affect their ability to keep down pills, for example nausea or vomiting? No 8.) Verified that patient understands prescription delivery, benefit investigation and refill process. Yes DRUG-SPECIFIC EDUCATION: 1.) Verified patient knows the drug name. Yes 2.) Verified patient understands the dose and schedule of oral anti cancer agent. Yes 3.) Verified patient knows what to do if a medication dose is missed. Yes 4.) Verified patient understands where to store the drug. Yes 5.) Verified patient understands potential side effects and how to manage them. Yes 6.)Verified patient understands handling precautions of oral anti cancer agent. Yes 7.) Verified patient was given written instructions and understands when and whom to call with questions. Yes 8.) Verified patient understands where and how to return drug. Yes 9.) Verified patient received drug specific adult education handout and neutropenic wallet card Yes EVALUATE: The patient demonstrated an understanding of all the above education using the teach-back method. Yes Instructed to call us with any questions, concerns, and/or unresolved symptoms. Will continue to follow up and provide reinforcement of teaching topics as needed. Jimmie Burger RN documented in this encounter [facility] 05-07-2024 Telephone encounter Note Robert Care Coordination FOLLOW-UP NOTE Patient identified by name and date of . YES Spoke to patient Summary: (Reason for follow-up) Patient stated she contacted her PCP because he prescribed Eliquis. PCP advised patient to call our office to see how long she should hold Eliquis prior to dental extractions. Patient will be seeing an oral surgeon who is at [facility]. . Care Coordination Plan: will follow-up with patient next week Jimmie Burger RN May 07, 2024 [facility] 05-07-2024 Telephone encounter Note Patient called stating she needs tooth extraction and has questions about taking eliquis. [facility] Work Phone: 05-07-2024 Telephone encounter Note Per [facility], patient has a high co-pay for lynparza and no grants are available. This nurse will wait to review [facility] notes after they discuss with patient. Per updated [facility] notes- patient enrolled in a [facility] veronica. [facility] will contact patient on Friday to discuss delivery. Patient is still confused about stopping letrozole. Patient informed since she will not be going on kisqali she no longer needs the letrozole. Jimmie Burger RN [facility] 05-07-2024 Miscellaneous Notes Per [facility], patient has a high co-pay for lynparza and no grants are available. This nurse will wait to review [facility] notes after they discuss with patient. Per updated [facility] notes- patient enrolled in a [facility] veronica. [facility] will contact patient on Friday to discuss delivery. Patient is still confused about stopping letrozole. Patient informed since she will not be going on kisqali she no longer needs the letrozole. Jimmie Burger RN Spoke with pt, had questions on recent medication changes from OV. She thought she would be taking a hormone pedro along with the Lynparza. She states she got a lot of information yesterday and wanted to be clear in her instruction. I reviewed her plan from her OV with her. She is going to continue the letrozole until she receives the Lynparza. [facility] called and left her a message, instructed her to call them back. Shanon Bruno LPN Patient called back as she missed a call from the nurse she has medication questions Please advise Returned call to pt, no answer, left VM stating that Renay had re-faxed the order to [facility]. Wanted to make sure with pt that [facility] got ahold of her with date and time. Shanon Bruno LPN Pt called back, tried to reach nurse line but busy she would like called back in am thank you Left message on patient's identified VM asking her to contact the office. I had faxed the thoracentesis order to [facility] on 05/04/2024. I called to day to follow up and I faxed the order again. Renay Crowe LPN [facility] received orders and patient is scheduled for 05/10/2024. Renay Crowe LPN Patient requested to speak with clinical regarding medications. She also stated she had not heard from [facility] regarding thoracentesis. Please advise. documented in this encounter [facility] 05-07-2024 Telephone encounter Note Spoke with pt, had questions on recent medication changes from OV. She thought she would be taking a hormone pedro along with the Lynparza. She states she got a lot of information yesterday and wanted to be clear in her instruction. I reviewed her plan from her OV with her. She is going to continue the letrozole until she receives the Lynparza. [facility] called and left her a message, instructed her to call them back. Shanon Bruno LPN [facility] 05-07-2024 Telephone encounter Note Patient called back as she missed a call from the nurse she has medication questions Please advise [facility] Work Phone: 05-07-2024 Telephone encounter Note Returned call to pt, no answer, left VM stating that Renay had re-faxed the order to [facility]. Wanted to make sure with pt that [facility] got ahold of her with date and time. Shanon Bruno LPN [facility] 05-06-2024 Telephone encounter Note Pt called back, tried to reach nurse line but busy she would like called back in am thank you [facility] 05-06-2024 Telephone encounter Note Left message on patient's identified VM asking her to contact the office. I had faxed the thoracentesis order to [facility] on 05/04/2024. I called to day to follow up and I faxed the order again. Renay Crowe LPN [facility] received orders and patient is scheduled for 05/10/2024. Renay Crowe LPN [facility] 05-06-2024 Telephone encounter Note Patient requested to speak with clinical regarding medications. She also stated she had not heard from [facility] regarding thoracentesis. Please advise. [facility] Work Phone: 05-04-2024 Note HNO ID: [id number] Author: JOHN ALBRIGHT, DO Service: ? Author Type: Physician Type: Progress Notes Filed: 05/09/2024 09:30 Note Text: Oncologic problem(s): 1) MBC. 2) History of ovarian cancer. 3) Germline BRCA2 mutation. HPI: The patient is a 68-year-old female with a past medical history as outlined below. Diagnosed with ovarian cancer 10/2008. She underwent surgery followed by 6 cycles of adjuvant chemotherapy with carboplatin and paclitaxel. Completed adjuvant treatment 04/2009. Evidently had abdominal recurrence in 2012 and underwent a second debulking surgery in October 2012. She received further adjuvant treatment with Doxil and carboplatin. This was completed May 2013. In 2015 she underwent a LEFT breast lumpectomy with sentinel lymph node biopsy April 2016. The pathology demonstrated a 2.5 cm ER/MO positive, HER2 negative tumor in the left breast with micro metastasis in 1 of 3 sentinel lymph nodes (0.8 mm). Overall grade was 3. Lymphovascular invasion was present. Closest margin was 2 mm from anterior margin. ER was positive greater than 95%. MO positive greater than 95% with moderate to strong staining intensity. HER2 was equivocal 1-2+; nonamplified by FISH testing. She declined adjuvant chemotherapy but received adjuvant radiation. Was started on AI with anastrozole beginning 10/2016. Was found to have germline BRCA2 mutation. She had declined prophylactic mastectomy and had been undergoing screening for breast cancer. Recently presented to [facility] on 03/12/2024 with a complaint of increasing shortness of breath. Prior to that she had been on a 10-day trip to [place]. CTA of the chest same day demonstrated bilateral first, second, and third order pulmonary emboli worse on the left. There was a moderate to large right pleural effusion with compressive atelectasis of much of the right lung. Patient underwent thoracentesis on 03/14/2024. 2200 cc of jimmie/dark fluid was retrieved. Cytology demonstrated malignant cells consistent with breast primary. Immunostains significant for positive mamma globulin, GATA3, CK7, CK8, CK20 TTF-1 was negative. CEA was positive CA125 was negative. Fluid was also positive for MSSA. She was anticoagulated with apixaban. She was discharged and was seen for follow-up visit with Dr. Michaud on 03/22/2024. Most recent screening mammogram 01/2024. At initial consultation: Walking up to 2 miles a day. Lives in town. Son in [place]--helps with house and yard. Daughter in [place]. about 3 years ago. No chest pain. 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 Presents for ongoing oncologic management. Interim history: She underwent a right-sided thoracentesis. Feels like she may not need to have it done again. Otherwise remains very active. Denies musculoskeletal pain. No neurologic symptoms. PAST MEDICAL HISTORY Diagnosis Date Breast cancer (HCC) Essential hypertension Hypoxemia Ovarian cancer (HCC) Pulmonary embolism (HCC) Osteoporosis. Had been on alendronate. PAST SURGICAL HISTORY Procedure Laterality Date BSO W/TIESHA AND OMENECTOMY FOR MALIGNANCY 07/14/2012 BX BREAST W/DEVICE 1ST LESION ULTRASOUND GUID Left 04/04/2016 U/S Bx outer mid left breast BX/EXC LYMPH NODE OPEN DEEP AXILLARY NODE Left 04/29/2016 HYSTERECTOMY HX LX PARTIAL COLECTOMY 07/14/2012 MASTECTOMY, PARTIAL Left 04/29/2016 PAST SURGICAL HISTORY OF Left ablation of vein of left leg for venous reflux hydrOXYzine pamoate (VISTARIL) 25 mg capsule TAKE 1 (ONE) CAPSULE BY MOUTH DAILY AT BEDTIME NEEDED FOR SLEEP calcium carbonate/vitamin D3 (CALCIUM + D ORAL) Take 1 tablet by mouth once daily. apixaban (ELIQUIS) 5 mg tab(s) Take 5 mg by mouth two times a day. CINNAMON BARK ORAL Take 1 tablet by mouth once daily. hydroCHLOROthiazide 12.5 mg tablet Take 12.5 mg by mouth every morning. ginkgo biloba (GINKOBA ORAL) Take 120 mg by mouth once daily. letrozole (FEMARA) 2.5 mg tablet Take 1 tablet by mouth once daily. MULTI-VITAMIN ORAL Take 1 tablet by mouth once daily. GLUCOSAMINE SULFATE (GLUCOSAMINE ORAL) Take 1 tablet by mouth once daily. TURMERIC ROOT EXTRACT ORAL Take 450 mg by mouth once daily. olaparib (LYNPARZA) 150 mg tablet Take 2 tablets (300mg) by mouth two times a day. ALLERGIES Allergen Reactions Demeral [Meperidine] GI Upset Percocet [Oxycodone* GI Upset Social History Tobacco Use Smoking status: Never Smokeless tobacco: Never Vaping Use Vaping status: Never Used Substance Use Topics Alcohol use: Yes Comment: occ Drug use: Never FAMILY HISTORY Problem Relation Age of Onset Hypertension Mother other (pulmonary embolism) Mother Stroke Father Heart Brother Heart Attack Brother Colon Cancer Maternal Grandmother Heart Maternal Grandfather Prostate Cancer Paternal Grandfather Breast Cancer (more content not included)... [facility] 05-04-2024 History of Presen t illness Narrative Oncologic problem(s): 1) MBC. 2) History of ovarian cancer. 3) Germline BRCA2 mutation. HPI: The patient is a 68-year-old female with a past medical history as outlined below. Diagnosed with ovarian cancer 10/2008. She underwent surgery followed by 6 cycles of adjuvant chemotherapy with carboplatin and paclitaxel. Completed adjuvant treatment 04/2009. Evidently had abdominal recurrence in 2012 and underwent a second debulking surgery in October 2012. She received further adjuvant treatment with Doxil and carboplatin. This was completed May 2013. In 2015 she underwent a LEFT breast lumpectomy with sentinel lymph node biopsy April 2016. The pathology demonstrated a 2.5 cm ER/MO positive, HER2 negative tumor in the left breast with micro metastasis in 1 of 3 sentinel lymph nodes (0.8 mm). Overall grade was 3. Lymphovascular invasion was present. Closest margin was 2 mm from anterior margin. ER was positive greater than 95%. MO positive greater than 95% with moderate to strong staining intensity. HER2 was equivocal 1-2+; nonamplified by FISH testing. She declined adjuvant chemotherapy but received adjuvant radiation. Was started on AI with anastrozole beginning 10/2016. Was found to have germline BRCA2 mutation. She had declined prophylactic mastectomy and had been undergoing screening for breast cancer. Recently presented to [facility] on 03/12/2024 with a complaint of increasing shortness of breath. Prior to that she had been on a 10-day trip to [place]. CTA of the chest same day demonstrated bilateral first, second, and third order pulmonary emboli worse on the left. There was a moderate to large right pleural effusion with compressive atelectasis of much of the right lung. Patient underwent thoracentesis on 03/14/2024. 2200 cc of jimmie/dark fluid was retrieved. Cytology demonstrated malignant cells consistent with breast primary. Immunostains significant for positive mamma globulin, GATA3, CK7, CK8, CK20 TTF-1 was negative. CEA was positive CA125 was negative. Fluid was also positive for MSSA. She was anticoagulated with apixaban. She was discharged and was seen for follow-up visit with Dr. Michaud on 03/22/2024. Most recent screening mammogram 01/2024. At initial consultation: Walking up to 2 miles a day. Lives in town. Son in [place]--helps with house and yard. Daughter in [place]. about 3 years ago. No chest pain. 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 Presents for ongoing oncologic management. Interim history: She underwent a right-sided thoracentesis. Feels like she may not need to have it done again. Otherwise remains very active. Denies musculoskeletal pain. No neurologic symptoms. PAST MEDICAL HISTORY Diagnosis Date Breast cancer (HCC) Essential hypertension Hypoxemia Ovarian cancer (HCC) Pulmonary embolism (HCC) Osteoporosis. Had been on alendronate. PAST SURGICAL HISTORY Procedure Laterality Date BSO W/TIESHA & OMENECTOMY FOR MALIGNANCY 07/14/2012 BX BREAST W/DEVICE 1ST LESION ULTRASOUND GUID Left 04/04/2016 U/S Bx outer mid left breast BX/EXC LYMPH NODE OPEN DEEP AXILLARY NODE Left 04/29/2016 HYSTERECTOMY HX LX PARTIAL COLECTOMY 07/14/2012 MASTECTOMY, PARTIAL Left 04/29/2016 PAST SURGICAL HISTORY OF Left ablation of vein of left leg for venous reflux hydrOXYzine pamoate (VISTARIL) 25 mg capsule TAKE 1 (ONE) CAPSULE BY MOUTH DAILY AT BEDTIME NEEDED FOR SLEEP calcium carbonate/vitamin D3 (CALCIUM + D ORAL) Take 1 tablet by mouth once daily. apixaban (ELIQUIS) 5 mg tab(s) Take 5 mg by mouth two times a day. CINNAMON BARK ORAL Take 1 tablet by mouth once daily. hydroCHLOROthiazide 12.5 mg tablet Take 12.5 mg by mouth every morning. ginkgo biloba (GINKOBA ORAL) Take 120 mg by mouth once daily. letrozole (FEMARA) 2.5 mg tablet Take 1 tablet by mouth once daily. MULTI-VITAMIN ORAL Take 1 tablet by mouth once daily. GLUCOSAMINE SULFATE (GLUCOSAMINE ORAL) Take 1 tablet by mouth once daily. TURMERIC ROOT EXTRACT ORAL Take 450 mg by mouth once daily. olaparib (LYNPARZA) 150 mg tablet Take 2 tablets (300mg) by mouth two times a day. ALLERGIES Allergen Reactions Demeral [Meperidine] GI Upset Percocet [Oxycodone* GI Upset Social History Tobacco Use Smoking status: Never Smokeless tobacco: Never Vaping Use Vaping status: Never Used Substance Use Topics Alcohol use: Yes Comment: occ Drug use: Never FAMILY HISTORY Problem Relation Age of Onset Hypertension Mother other (pulmonary embolism) Mother Stroke Father Heart Brother Heart Attack Brother Colon Cancer Maternal Grandmother Heart Maternal Grandfather Prostate Cancer Paternal Grandfather Breast Cancer Maternal Aunt Cancer Maternal Aunt liver Ovarian cancer Maternal cousin Breast Cancer Paternal Aunt Breast Cancer Paternal cousin Breast Cancer Paternal cousin REVIEW OF SYSTEMS: Constitutional: No episodes of fever and night sweats. Not significantly fatigued. Normal appetite. Neuro: No CHU, vertigo, dizziness and imbalance. No symptoms of neuropathy. HEENT: No recent change in voice, vision or hearing. Resp: No cough, wheeze and hemoptysis. No shortness of breath at rest. CVS: No exertional chest pain, PND, orthopnea and LE edema. GI: No altered taste or symptoms of stomatitis. No dysphagia and odynophagia. No reflux, n/v, change in bowel habits or abdominal pain. : No dysuria or gross hematuria. No symptoms of bladder outlet obstruction. Endo: No hot flashes. No polyuria and polydipsia. No heat and cold intolerance. Musculoskeletal: No bone, back, joint and muscular pain. Derm: No current rash. No history of jaundice or diffuse pruritis. Heme: No unusual bleeding and unexplained bruising. Psych: Normal mood. PHYSICAL EXAM: Vitals: Blood pressure 142/84, pulse 108, temperature 37.1 C (98.8 F), temperature source Temporal, weight 83.5 kg (184 lb), SpO2 95%. Well-appearing and in no acute distress. EYES: Sclerae are anicteric bilaterally. LYMPHATIC: There is no palpable adenopathy. RESPIRATORY: Diminished breath sounds right base. CARDIOVASCULAR: Rhythm is regular. No murmur. BREAST: Deferred. ABDOMEN: The abdomen is nondistended. No splenomegaly or hepatomegaly. No tenderness. Extremities: No swelling or edema. SKIN: No jaundice. LABS: Most recent lab work from 03/13/2024 from [facility] reviewed. Hemoglobin 13.5 g/dL. White count 6900. Platelet count 171,000. Chemistry significant for serum creatinine 0.52 mg/dL. Calcium 8.7 mg/dL. Magnesium 1.7 mg/dL. Albumin low at 2.6 g/dL. Total protein 5.8 g/dL. Hepatocellular enzymes, alkaline phosphatase and total bilirubin normal. LDH 217. IMAGING: PET [facility]: PET scan demonstrated skeletal metastases including right iliac wing, left acetabulum, left sacral parris in the region of the fifth thoracic vertebra. There was also increased tracer concentration in the left hemithorax at the pleural interface fulfilling quantitative criteria for viable neoplasm. MRI brain WC: Small focal enhancing nodule measuring 4 mm along the posterior lateral aspect of the right occipital lobe with minimal surrounding edema. Genetic testing: BRCA2 mutation. NGS/biomarkers/driver/guide mutation analyses: Guardant 360 -ERS1 mutation. Elacestrant. -PIK3CA mutation. Alpelisib plus fulvestrant or capivaertib plus fulvestrant -BRCA2 mutation. -TP53 mutation (0.2%). 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 -Right-sided malignant pleural effusion. -History of extensive pulmonary emboli. -History of ovarian cancer. -Reviewed the PET scan results. Bone metastases as outlined above. -She is in need of 1 tooth extraction. Scheduled for next week. -Will try Lynparza although she didn't previously have chemotherapy. May kiko to use elacestrant or capivaertib with fulvestrant pending approval of elacestrant. Plan: -Discontinue letrozole. -Rx Lynparza. -PET scan in 3 months. -Reached out to [facility] team. -Continue apixaban. -Scheduled for biweekly thoracentesis. Portions of this documentation were copied and pasted from previous office visit notes in order to provide a cohesive continuity of the history. The note has been reviewed and edited and updated as necessary. John Albright DO documented in this encounter [facility] 05-04-2024 History of Presen t illness Narrative [facility] received prescription(s) for Lynparza from Dr. Albright's office. Benefits investigation was conducted, indicating that a prior authorization is required by patient's insurance plan with [employer]. Encounter will be updated once prior authorization has been submitted by [facility]. Nunu Jacobs CPhT [facility], Oncology P: / F: [facility] received prescription(s) for Lynparza from Dr. Albright's office. PA was approved with details listed below. Plan Name: [employer] / [employer] Plan Agent/Rodriguez: [id number] Phone/ PA reference number: [id number] Approval Dates: 04/20/24 - until further notice Prescriptions will now be processed through [facility] for determination of next steps. ADRIANNA Olson RN documented in this encounter [facility] 05-04-2024 Note HNO ID: [id number] Author: ?, ?, ? Service: ? Author Type: ? Type: Progress Notes Filed: 05/07/2024 13:45 Note Text: Pt was enrolled in a new $3500 veronica through [employer], effective 04/07/24 to 04/06/25. Nunu Jacobs CPhT [facility], Oncology P: / F: [facility] 05-04-2024 Note HNO ID: [id number] Author: ELSA JACQUES RPh Service: ? Author Type: Pharmacist Type: Progress Notes Filed: 05/10/2024 10:39 Note Text: [facility] received prescription(s) for Lynparza from Dr. Albright's office. PA was approved with details listed below. Plan Name: [employer] / [employer] Plan Agent/Rodriguez: [id number] Phone/ SUSY reference number: [id number] Approval Dates: 04/20/24 - until further notice Pt's copay is $0, HW veronica applied. Shipment has been arranged, and pt will receive medication(s) on YTBD. Pt has been instructed to follow-up with clinic to confirm start date. A full drug interaction report was conducted, and no drug interactions identified. I reviewed with Flory appropriate dose and dosing frequency, administration directions (Take 2 tablets (300mg) by mouth two times a day.), potential side effects, ability to self-administer and proper storage and handling requirements. S/he expressed understanding of the information we provided today, and received our contact information for the pharmacy if s/he had any other questions. Office/provider notes have been reviewed prior to dispensing the medication. 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) 05/04/2024 John Albright, DO No Malignant pleural effusion 05/04/2024 John Albright, DO No BRCA2 gene mutation positive 04/07/2024 John Albright, DO No History of ovarian cancer 04/07/2024 John Albright DO No Pulmonary embolus (HCC) 04/07/2024 John Albright DO No Fat necrosis 01/06/2017 Ryan Frank MD No Malignant neoplasm of upper-outer quadrant of left female breast (HCC) 04/08/2016 Rayn Frank MD No Abnormal mammogram 04/01/2016 Ryan Frank MD No Library Technology Instructor Assessment Patient confirmed: Yes Med/dose confirmed: Yes Supplies needed: Welcome packet Estimated days supply on hand: 0 Copay amount: 0 Payment confirmed: Yes Delivery method: FedEx Signature required: Waived on patient request Delivery address: [address] [place] [id number] Delivery date: (Waiting on baseline labs) Questions or concerns for the pharmacist?: Yes Patient questions/concerns: Medication cost, Co-pay/assistance programs, Medication dose, Medication route, Medication storage, Side effects, Delivery Did you have any side effects believed to be related to this medication, that resulted in hospitalization?: No [facility] CLINICAL ASSESSMENT - HEMATOLOGY ONCOLOGY V6: Ivent complete: Yes Assessment to use: Initial testing and baseline labs: Yes Comprehensive drug interaction assessment completed: Yes Reviewed supportive care medication appropriateness based on emetogenic risk of therapy: Yes Counseling on intended outcome of therapy: Palliative Reviewed intended chemotherapy cycling and dosing regimen: N/A Patient device teaching: N/A Diagnosis: Yes Prior therapy and current medication list (including drug interaction assessment): Yes Comorbidities: Yes Medical history: Yes Ability to properly self-adminster medication: Yes Therapeutic goals based on possible outcomes of therapy: Yes Does the patient have any additional functional limitations, dietary needs, or safety measures?: No Date of influenza vaccination reminder: 05/07/2024 Date of most recent vaccination assessment: 05/07/2024 Treatment Plan Information: Diagnosis:metastatic breast , ER/MO positive, HER2 negative, Bone metastases -History of ovarian cancer. -Germline BRCA2 mutation. Previous treatment(s):breast lumpectomy, adjuvant radiation. Anastrozole. Letrozole TP: Rx Lynparza Starting Dose/Titration: - Take 2 tablets (300 mg) by mouth twice daily. - No titration Administration: - Administer approximately every 12 hours with or without food. Taking on an empty stomach may decrease incidence of nausea and vomiting. - Swallow tablets whole; do not chew, crush, dissolve, or divide tablet; do not administer if capsules appear deformed or show evidence of leakage. - Tablets and capsules are not equivalent on a mg-to-mg basis - Avoid grapefruit, grapefruit juice, Roxie oranges, or Roxie orange juice. Supportive Care: Mild emetogenic potential per Lexicomp Side Effects/Warnings: include but are not limited to bone marrow suppression, hypersensitivity, pulmonary toxicity (pneumonitis), secondary malignancies (MDS/AML), skin rash, hypomagnesemia, abdominal pain, constipation, diarrhea, nausea, stomatitis, arthralgia Monitoring: - CBC - Renal function Drug-Drug Interactions: None identifiedper Lexicomp on 05/07/24 Baseline: PENDING - CBC: Hgb Plt , ANC - CrCl: (more content not included)... [facility] 05-04-2024 Note HNO ID: [id number] Author: ?, ?, ? Service: ? Author Type: ? Type: Progress Notes Filed: 05/04/2024 07:43 Note Text: [facility] received prescription(s) for Lynparza from Dr. Albright's office. Benefits investigation was conducted, indicating that a prior authorization is required by patient's insurance plan with [employer]. Encounter will be updated once prior authorization has been submitted by [facility]. Nunu Jacobs CPhT [facility] Special[facility], Oncology P: / F: [facility] 05-04-2024 Note HNO ID: [id number] Author: ELSA JACQUES [facility] Service: ? Author Type: Registered Nurse Type: Progress Notes Filed: 05/07/2024 14:19 Note Text: [facility] received prescription(s) for Lynparza from Dr. Albright's office. PA was approved with details listed below. Plan Name: [employer] Give Back / [employer] Plan Agent/Rodriguez: [id number] Phone/ PA reference number: [id number] Approval Dates: 04/20/24 - until further notice Prescriptions will now be processed through [facility] for determination of next steps. ADRIANNA Olson RN Addendum May 04, 2024 2:15 PM : The first copay is high ~$2492.04 due to the different phases of the patient's traditional Medicare part D plan. After this fill patient has reached their catastrophic coverage phase, and it is expected his/her copays will be $0 thereafter. Nicolette Padilla Addendum May 04, 2024 5:50 PM : There is no funding available for patients diagnosis at this time. Patient will be referred to [facility] ([facility]) Assistance Program. Note will be update once pt is contacted. Elsa Jacques [facility] Addendum May 07, 2024 2:16 PM : A veronica opened up and is currently available for Joyce. Pt's copay is $0 with veronica applied. Note will be updated once pt is contacted and delivery is confirmed. Elsa Jacques [facility] 04-27-2024 Telephone encounter Note Met with pt this date and assisted in completing Kisqali PAP. SW answered all questions about application process and the program. Pt states her OOP for Kisqali without assistance will be $2500/month. SW also discussed with pt other options if declined for PAP and also discussed the $2,000 Medicare OOP max for all prescriptions in 2024. No other needs identified. IRINA Benavides [facility] 04-27-2024 Miscellaneous Notes Met with pt this date and assisted in completing Kisqali PAP. SW answered all questions about application process and the program. Pt states her OOP for Kisqali without assistance will be $2500/month. SW also discussed with pt other options if declined for PAP and also discussed the $2,000 Medicare OOP max for all prescriptions in 2024. No other needs identified. IRINA Benavides Spoke to patient. Patient is over income and needs to fill out PAP form which she might not qualify for with her being over income. Patient would like to set up a time to come in and fill out the paperwork with [facility]. Call was transferred to [facility] to set up a time for patient to come into our office. Patient aware this nurse will review drug information once she knows she will receive. Patient was agreeable to this. Jimmie Burger RN ORAL ANTI-CANCER AGENTS EDUCATION patient called today for oral medication education of kisqali for Breast Cancer Anticipated/Scheduled start date: TBD Called patient. Unable to complete edu at this time. This nurse will call patient next Friday. Jimmie Burger RN documented in this encounter [facility] 04-26-2024 Telephone encounter Note Spoke to patient. Patient is over income and needs to fill out PAP form which she might not qualify for with her being over income. Patient would like to set up a time to come in and fill out the paperwork with [facility]. Call was transferred to [facility] to set up a time for patient to come into our office. Patient aware this nurse will review drug information once she knows she will receive. Patient was agreeable to this. Jimmie Burger RN [facility] 04-23-2024 Telephone encounter Note ORAL ANTI-CANCER AGENTS EDUCATION patient called today for oral medication education of kisqali for Breast Cancer Anticipated/Scheduled start date: TBD Called patient. Unable to complete edu at this time. This nurse will call patient next Friday. Jimmie Burger RN [facility] 2024 History of Presen t illness Narrative [facility] received prescription(s) for Kisqali from Dr. Albright's office. Benefits investigation was conducted, indicating that a prior authorization is required by patient's insurance plan with [employer]. Encounter will be updated once prior authorization has been submitted by [facility]. [facility] P: / F: documented in this encounter [facility] 2024 Note HNO ID: [id number] Author: ELSA JACQUES RPh Service: ? Author Type: Registered Nurse Type: Progress Notes Filed: 04/21/2024 17:24 Note Text: [facility] received prescription(s) for Kisqali from Dr. Albright's office. PA was approved with details listed below. Plan Name: Why Not Give Back / [employer] Plan Agent/Rodriguez: [id number] Phone/ PA reference number: [id number] Approval Dates: 04/07/24 - until further notice Prescriptions will now be processed through [facility] Special[facility] for determination of next steps. ADRIANNA Olson RN Addendum April 21, 2024 3:56 PM : The first copay is high ~$2492.04 due to the different phases of the patient's traditional Medicare part D plan. After this fill patient has reached their catastrophic coverage phase, and it is expected his/her copays will be $0 thereafter. Nicolette Padilla CPhT Oncology [facility] Office: Addendum April 21, 2024 5:23 PM : There is no funding available for patients diagnosis at this time. Patient will be referred to [employer] Assistance Program. Note will be update once pt is contacted. Elsa Jacques RPh [facility] 2024 Note HNO ID: [id number] Author: ?, ?, ? Service: ? Author Type: ? Type: Progress Notes Filed: 2024 15:26 Note Text: [facility] received prescription(s) for Kisqali from Dr. Albright's office. Benefits investigation was conducted, indicating that a prior authorization is required by patient's insurance plan with [employer]. Encounter will be updated once prior authorization has been submitted by [facility]. Nunu Jacobs CPhT [facility], Oncology P: / F: [facility] 2024 Telephone encounter Note Faxed order. Shanon Bruno LPN [facility] 2024 Miscellaneous Notes Faxed order. Shanon Bruno LPN I signed the order for the new PET scan and sent the prescription for Kisqali. John Albright DO New order pended, Spoke with Lizet from [facility] , since pt. Has had previous treatment the PET is always subsequent , not initial. New order pended . Dr. Albright please sign new pended order so can be faxed to [facility] [phone] Joyce Mejía LPN Information all faxed. Did question why new order? And instructed them to call, given our direct line. Joyce Mejía LPN Yoel from [facility] called requesting demographics, new order for pet-changing from initial to subsequent and copy of pathology from 03/2024. Please fax to [phone] documented in this encounter [facility] 2024 Telephone encounter Note I signed the order for the new PET scan and sent the prescription for Kisqali. John Albright DO T [facility] 2024 Telephone encounter Note New order pended, Spoke with Lizet from [facility] , since pt. Has had previous treatment the PET is always subsequent , not initial. New order pended . Dr. Albright please sign new pended order so can be faxed to [facility] [phone] Joyce Mejía LPN T [facility] 2024 Telephone encounter Note Information all faxed. Did question why new order? And instructed them to call, given our direct line. Joyce Mejía LPN [facility] 2024 Telephone encounter Note Yoel from [facility] called requesting demographics, new order for pet-changing from initial to subsequent and copy of pathology from 03/2024. Please fax to [phone] T [facility] Work Phone: 04-16-2024 Note HNO ID: [id number] Author: PATI SIMMONS RN Service: ? Author Type: Registered Nurse Type: Progress Notes Filed: 04/16/2024 15:15 Note Text: EKG performed per protocol on Joyce Robles on April 16, 2024 patient tolerated well. Copy was placed in Dr Albright's office mailbox Pati Simmons RN [facility] 04-16-2024 History of Presen t illness Narrative EKG performed per protocol on Joyce Robles on April 16, 2024 patient tolerated well. Copy was placed in Dr Albright's office mailbox Pati Simmons RN documented in this encounter [facility] 04-16-2024 Telephone encounter Note Patient returned call and scheduled EKG today. Ivy Garrido [facility] 04-16-2024 Miscellaneous Notes Patient returned call and scheduled EKG today. Ivy Garrido Left message for patient to return call. When she calls, please schedule an EKG on the port schedule. Ivy Garrido Left detailed message on identified voicemail , need repeat EKG, PSS please reach out to pt. To get scheduled. Joyce Mejía LPN Sorry, yes repeat EKG. her QTc was significantly prolonged on an EKG done 03/12/2024 at [facility] when she was admitted for PE. John Albright DO Per OV notes: -Rx Kisqali after EKG. Verzenio if QT still prolonged. Are we repeating an EKG? In huddle last week, Kisqali was discussed but this has not been ordered. Thank you. Jimmie Bugrer, VÍCTOR documented in this encounter [facility] 04-15-2024 Telephone encounter Note Left message for patient to return call. When she calls, please schedule an EKG on the port schedule. Ivy Garrido [facility] 04-15-2024 Telephone encounter Note Left detailed message on identified voicemail , need repeat EKG, PSS please reach out to pt. To get scheduled. Joyce Mejía LPN [facility] 04-15-2024 Telephone encounter Note Sorry, yes repeat EKG. her QTc was significantly prolonged on an EKG done 03/12/2024 at [facility] when she was admitted for PE. John Albright DO [facility] 04-14-2024 Telephone encounter Note Per OV notes: -Rx Kisqali after EKG. Verzenio if QT still prolonged. Are we repeating an EKG? In huddle last week, Kisqali was discussed but this has not been ordered. Thank you. Jimmie Burger, RN [facility] 04-09-2024 Telephone encounter Note Orders faxed to [facility] Joyce Mejía LPN [facility] 04-09-2024 Miscellaneous Notes Orders faxed to [facility] Joyce Mejía LPN Signed. Spoke with pt. Given information concerning thoracentesis @ [facility] . Scheduled for 03/12 @ 8 am. Pt. Also does take Eliquis 5 mg 2 tablets BID, has been taking since 03/14. Questioned pt. On dose as to wether or not she was to decrease this dose after starting , She was not sure and wasn't instructed to. Found in discharge summary she was to decrease after 13 doses. Will make pt. Aware after orders signed and instructions given for Eliquis prior to procedure. Added to medication list Please sign orders and does pt , need to be off Eliquis prior to Thoracentesis on Friday? Discharge Orders/Prescriptions Prescriptions: New Eliquis 5 mg tablet 10 mg PO BID Qty: 68 0RF Rx Instructions: 2 tabs twice a day for a total of 13 doses starting tonight, then decrease the dose to 5 mg twice a day Pt. Instructed she is to take Eliquis 5 mg BID, hold this Friday, Friday , and Friday. Pt. Voiced understanding. Joyce Mejía LPN Called patients mobile phone, no answer, left a VM requesting a call back to our office. Jimmie Burger RN Can let her know the x-ray from yesterday showed that she has build up quite a bit of fluid since the time she had the thoracentesis on 03/14. I think it would be a good idea to go ahead and schedule for another right-sided ultrasound-guided thoracentesis at [facility]. Also, I was under the impression she was taking Eliquis but is not on her med list. Please inquire about that. John Albright DO documented in this encounter [facility] 04-09-2024 Telephone encounter Note Signed. [facility] 04-09-2024 Telephone encounter Note Spoke with pt. Given information concerning thoracentesis @ [facility] . Scheduled for 03/12 @ 8 am. Pt. Also does take Eliquis 5 mg 2 tablets BID, has been taking since 03/14. Questioned pt. On dose as to wether or not she was to decrease this dose after starting , She was not sure and wasn't instructed to. Found in discharge summary she was to decrease after 13 doses. Will make pt. Aware after orders signed and instructions given for Eliquis prior to procedure. Added to medication list Please sign orders and does pt , need to be off Eliquis prior to Thoracentesis on Friday? Discharge Orders/Prescriptions Prescriptions: New Eliquis 5 mg tablet 10 mg PO BID Qty: 68 0RF Rx Instructions: 2 tabs twice a day for a total of 13 doses starting tonight, then decrease the dose to 5 mg twice a day Pt. Instructed she is to take Eliquis 5 mg BID, hold this Friday, Friday , and Friday. Pt. Voiced understanding. Joyce Mejía LPN [facility] 04-08-2024 Telephone encounter Note Called patients mobile phone, no answer, left a VM requesting a call back to our office. Jimmie Burger RN [facility] 04-08-2024 Telephone encounter Note Can let her know the x-ray from yesterday showed that she has build up quite a bit of fluid since the time she had the thoracentesis on 03/14. I think it would be a good idea to go ahead and schedule for another right-sided ultrasound-guided thoracentesis at [facility]. Also, I was under the impression she was taking Eliquis but is not on her med list. Please inquire about that. John Albright DO [facility] 04-07-2024 History of Presen t illness Narrative Radiology Service Progress Note PATIENT NAME: Joyce Robles DATE OF SERVICE: April 07, 2024 TIME: 2:57 PM PATIENT IDENTITY VERIFICATION COMPLETED USING TWO (2) IDENTIFIERS: Name and Date of confirmed by patient verbally. FALL SCREENING: Has the patient had 2 falls in the last year or 1 fall with injury or currently using an Ambulatory Assistive Device (Walker, Cane, Wheelchair, Crutches, etc.)? No PATIENT GENDER DATA: Female. status: : No status: NO. PATIENT RELEVANT IMPLANT DATA REVIEWED: Not Applicable PATIENT PRESENTS WITH AN IMPLANTABLE OR ATTACHED BASTING CLEANER: No RADIOLOGY DEPARTMENT: General X-ray: Exam(s) Completed: Chest X-Ray PERIPHERAL IV DATA: Not applicable SIGNED BY: RT Starr(R) April 07, 2024 2:57 PM documented in this encounter [facility] 04-07-2024 Note HNO ID: [id number] Author: PAZ WARREN RT(Jaison) Service: ? Author Type: Technologist Type: Progress Notes Filed: 04/07/2024 14:57 Note Text: Radiology Service Progress Note PATIENT NAME: Joyce Robles DATE OF SERVICE: April 07, 2024 TIME: 2:57 PM PATIENT IDENTITY VERIFICATION COMPLETED USING TWO (2) IDENTIFIERS: Name and Date of confirmed by patient verbally. FALL SCREENING: Has the patient had 2 falls in the last year or 1 fall with injury or currently using an Ambulatory Assistive Device (Walker, Cane, Wheelchair, Crutches, etc.)? No PATIENT GENDER DATA: Female. status: : No status: NO. PATIENT RELEVANT IMPLANT DATA REVIEWED: Not Applicable PATIENT PRESENTS WITH AN IMPLANTABLE OR ATTACHED BASTING CLEANER: No RADIOLOGY DEPARTMENT: General X-ray: Exam(s) Completed: Chest X-Ray PERIPHERAL IV DATA: Not applicable SIGNED BY: RT Starr(R) April 07, 2024 2:[address] [facility] 04-07-2024 Note HNO ID: [id number] Author: MASCI, JOHN, DO Service: ? Author Type: Physician Type: Progress Notes Filed: 04/07/2024 14:08 Note Text: Joyce Robles is a 68 year old female referred by Dr. Teetee Michaud for history of breast and ovarian cancer.. HPI: The patient is a 68-year-old female with a past medical history as outlined below. Diagnosed with ovarian cancer 10/2008. She underwent surgery followed by 6 cycles of adjuvant chemotherapy with carboplatin and paclitaxel. Completed adjuvant treatment 04/2009. Evidently had abdominal recurrence in 2012 and underwent a second debulking surgery in October 2012. She received further adjuvant treatment with Doxil and carboplatin. This was completed May 2013. In 2015 she underwent a left breast lumpectomy with sentinel lymph node biopsy April 2016. The pathology demonstrated a 2.5 cm ER/MO positive, HER2 negative tumor in the left breast with micro metastasis in 1 of 3 sentinel lymph nodes (0.8 mm). Overall grade was 3. Lymphovascular invasion was present. Closest margin was 2 mm from anterior margin. ER was positive greater than 95%. MO positive greater than 95% with moderate to strong staining intensity. HER2 was equivocal 1-2+; nonamplified by FISH testing. She declined adjuvant chemotherapy but received adjuvant radiation. Was started on AI with anastrozole beginning 10/2016. Was found to have germline BRCA2 mutation. She had declined prophylactic mastectomy and had been undergoing screening for breast cancer. Recently presented to [facility] on 03/12/2024 with a complaint of increasing shortness of breath. Prior to that she had been on a 10-day trip to [place]. CTA of the chest same day demonstrated bilateral first, second, and third order pulmonary emboli worse on the left. There was a moderate to large right pleural effusion with compressive atelectasis of much of the right lung. Patient underwent thoracentesis on 03/14/2024. 2200 cc of jimmie/dark fluid was retrieved. Cytology demonstrated malignant cells consistent with breast primary. Immunostains significant for positive mamma globulin, GATA3, CK7, CK8, CK20 TTF-1 was negative. CEA was positive CA125 was negative. Fluid was also positive for MSSA. She was anticoagulated with apixaban. She was discharged and was seen for follow-up visit with Dr. Michaud on 03/22/2024. Most recent screening mammogram 01/2024. Walking up to 2 miles a day. Lives in town. Son in [place]--helps with house and yard. Daughter in [place]. about 3 years ago. No chest pain. 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 PAST MEDICAL HISTORY Diagnosis Date Breast cancer (HCC) Essential hypertension Hypoxemia Ovarian cancer (HCC) Pulmonary embolism (HCC) Osteoporosis. Had been on alendronate. PAST SURGICAL HISTORY Procedure Laterality Date BSO W/TIESHA AND OMENECTOMY FOR MALIGNANCY 07/14/2012 BX BREAST W/DEVICE 1ST LESION ULTRASOUND GUID Left 04/04/2016 U/S Bx outer mid left breast BX/EXC LYMPH NODE OPEN DEEP AXILLARY NODE Left 04/29/2016 HYSTERECTOMY HX LX PARTIAL COLECTOMY 07/14/2012 MASTECTOMY, PARTIAL Left 04/29/2016 PAST SURGICAL HISTORY OF Left ablation of vein of left leg for venous reflux MULTI-VITAMIN ORAL Take 1 tablet by mouth once daily. GLUCOSAMINE SULFATE (GLUCOSAMINE ORAL) Take 1 tablet by mouth once daily. TURMERIC ROOT EXTRACT ORAL Take 1 tablet by mouth once daily. anastrozole (ARIMIDEX) 1 mg tablet (Patient not taking: Reported on 04/07/2024) zolpidem (AMBIEN) 10 mg tab (Patient not taking: Reported on 04/07/2024) cyclobenzaprine (FLEXERIL) 10 mg tablet ACAI JUAREZ EXTRACT ORAL Take by mouth. (Patient not taking: Reported on 04/07/2024) ALLERGIES Allergen Reactions Demeral [Meperidine] GI Upset Percocet [Oxycodone* GI Upset Social History Tobacco Use Smoking status: Never Smokeless tobacco: Never Vaping Use Vaping status: Never Used Substance Use Topics Alcohol use: Yes Comment: occ Drug use: Never FAMILY HISTORY Problem Relation Age of Onset Hypertension Mother other (pulmonary embolism) Mother Stroke Father Heart Brother Heart Attack Brother Colon Cancer Maternal Grandmother Heart Maternal Grandfather Prostate Cancer Paternal Grandfather Breast Cancer Maternal Aunt Cancer Maternal Aunt liver REVIEW OF SYSTEMS: Constitutional: No episodes of fever and night sweats. Not significantly fatigued. Normal appetite. Neuro: No CHU, vertigo, dizziness and imbalance. No symptoms of neuropathy. HEENT: No recent change in voice, vision or hearing. Resp: No cough, wheeze and hemoptysis. No shortness of breath at rest. No GLASS. CVS: No exertional chest pain, PND, orthopnea and LE edema. GI: No altered taste or symptoms of stomatitis. No dysphagia and odynophagia. No reflux, n/v, change in bowel habits or abdominal pain. : No dysu (more content not included)... [facility] 04-07-2024 History of Presen t illness Narrative Joyce Robles is a 68 year old female referred by Dr. Teetee Michaud for history of breast and ovarian cancer.. HPI: The patient is a 68-year-old female with a past medical history as outlined below. Diagnosed with ovarian cancer 10/2008. She underwent surgery followed by 6 cycles of adjuvant chemotherapy with carboplatin and paclitaxel. Completed adjuvant treatment 04/2009. Evidently had abdominal recurrence in 2012 and underwent a second debulking surgery in October 2012. She received further adjuvant treatment with Doxil and carboplatin. This was completed May 2013. In 2015 she underwent a left breast lumpectomy with sentinel lymph node biopsy April 2016. The pathology demonstrated a 2.5 cm ER/MO positive, HER2 negative tumor in the left breast with micro metastasis in 1 of 3 sentinel lymph nodes (0.8 mm). Overall grade was 3. Lymphovascular invasion was present. Closest margin was 2 mm from anterior margin. ER was positive greater than 95%. MO positive greater than 95% with moderate to strong staining intensity. HER2 was equivocal 1-2+; nonamplified by FISH testing. She declined adjuvant chemotherapy but received adjuvant radiation. Was started on AI with anastrozole beginning 10/2016. Was found to have germline BRCA2 mutation. She had declined prophylactic mastectomy and had been undergoing screening for breast cancer. Recently presented to [facility] on 03/12/2024 with a complaint of increasing shortness of breath. Prior to that she had been on a 10-day trip to [place]. CTA of the chest same day demonstrated bilateral first, second, and third order pulmonary emboli worse on the left. There was a moderate to large right pleural effusion with compressive atelectasis of much of the right lung. Patient underwent thoracentesis on 03/14/2024. 2200 cc of jimmie/dark fluid was retrieved. Cytology demonstrated malignant cells consistent with breast primary. Immunostains significant for positive mamma globulin, GATA3, CK7, CK8, CK20 TTF-1 was negative. CEA was positive CA125 was negative. Fluid was also positive for MSSA. She was anticoagulated with apixaban. She was discharged and was seen for follow-up visit with Dr. Michaud on 03/22/2024. Most recent screening mammogram 01/2024. Walking up to 2 miles a day. Lives in town. Son in [place]--helps with house and yard. Daughter in [place]. about 3 years ago. No chest pain. 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 PAST MEDICAL HISTORY Diagnosis Date Breast cancer (HCC) Essential hypertension Hypoxemia Ovarian cancer (HCC) Pulmonary embolism (HCC) Osteoporosis. Had been on alendronate. PAST SURGICAL HISTORY Procedure Laterality Date BSO W/TIESHA & OMENECTOMY FOR MALIGNANCY 07/14/2012 BX BREAST W/DEVICE 1ST LESION ULTRASOUND GUID Left 04/04/2016 U/S Bx outer mid left breast BX/EXC LYMPH NODE OPEN DEEP AXILLARY NODE Left 04/29/2016 HYSTERECTOMY HX LX PARTIAL COLECTOMY 07/14/2012 MASTECTOMY, PARTIAL Left 04/29/2016 PAST SURGICAL HISTORY OF Left ablation of vein of left leg for venous reflux MULTI-VITAMIN ORAL Take 1 tablet by mouth once daily. GLUCOSAMINE SULFATE (GLUCOSAMINE ORAL) Take 1 tablet by mouth once daily. TURMERIC ROOT EXTRACT ORAL Take 1 tablet by mouth once daily. anastrozole (ARIMIDEX) 1 mg tablet (Patient not taking: Reported on 04/07/2024) zolpidem (AMBIEN) 10 mg tab (Patient not taking: Reported on 04/07/2024) cyclobenzaprine (FLEXERIL) 10 mg tablet ACAI JUAREZ EXTRACT ORAL Take by mouth. (Patient not taking: Reported on 04/07/2024) ALLERGIES Allergen Reactions Demeral [Meperidine] GI Upset Percocet [Oxycodone* GI Upset Social History Tobacco Use Smoking status: Never Smokeless tobacco: Never Vaping Use Vaping status: Never Used Substance Use Topics Alcohol use: Yes Comment: occ Drug use: Never FAMILY HISTORY Problem Relation Age of Onset Hypertension Mother other (pulmonary embolism) Mother Stroke Father Heart Brother Heart Attack Brother Colon Cancer Maternal Grandmother Heart Maternal Grandfather Prostate Cancer Paternal Grandfather Breast Cancer Maternal Aunt Cancer Maternal Aunt liver REVIEW OF SYSTEMS: Constitutional: No episodes of fever and night sweats. Not significantly fatigued. Normal appetite. Neuro: No CHU, vertigo, dizziness and imbalance. No symptoms of neuropathy. HEENT: No recent change in voice, vision or hearing. Resp: No cough, wheeze and hemoptysis. No shortness of breath at rest. No GLASS. CVS: No exertional chest pain, PND, orthopnea and LE edema. GI: No altered taste or symptoms of stomatitis. No dysphagia and odynophagia. No reflux, n/v, change in bowel habits or abdominal pain. : No dysuria or gross hematuria. No symptoms of bladder outlet obstruction. Endo: No hot flashes. No polyuria and polydipsia. No heat and cold intolerance. Musculoskeletal: No bone, back, joint and muscular pain. Derm: No current rash. No history of jaundice or diffuse pruritis. Heme: No unusual bleeding and unexplained bruising. Psych: Normal mood. PHYSICAL EXAM: Vitals: Blood pressure 131/84, pulse 111, temperature 36.9 C (98.4 F), temperature source Oral, height 163 cm (5' 4.17 ), weight 84.8 kg (187 lb), SpO2 95%. Well-appearing and in no acute distress. EYES: Sclerae are anicteric bilaterally. ENT: Oral mucosa is unremarkable. There is no sign of thrush or mucositis. LYMPHATIC: There is no palpable adenopathy. RESPIRATORY: Diminished breath sounds right base. CARDIOVASCULAR: Rhythm is regular. No murmur. BREAST: Deferred. ABDOMEN: The abdomen is nondistended. No splenomegaly or hepatomegaly. No tenderness. Extremities: No swelling or edema. SKIN: No jaundice or rash. No petechiae. NEUROLOGIC: director banking II-XII are grossly intact. No focal motor weakness. LABS: Most recent lab work from 03/13/2024 from [facility] reviewed. Hemoglobin 13.5 g/dL. White count 6900. Platelet count 171,000. Chemistry significant for serum creatinine 0.52 mg/dL. Calcium 8.7 mg/dL. Magnesium 1.7 mg/dL. Albumin low at 2.6 g/dL. Total protein 5.8 g/dL. Hepatocellular enzymes, alkaline phosphatase and total bilirubin normal. LDH 217. Genetic testing: BRCA2 mutation. NGS/biomarkers/driver/guide mutation analyses: ASSESSMENT/PLAN: (C50.412, Z17.0) Malignant neoplasm of upper-outer quadrant of left breast in female, estrogen receptor positive (HCC) (primary encounter diagnosis) (J91.0) Malignant pleural effusion (Z15.01, Z15.09) BRCA2 gene mutation positive (Z85.43) History of ovarian cancer (I27.82) Other chronic pulmonary embolism without acute cor pulmonale (HCC) Assessment: -Metastatic recurrence of pT2b N1 AL (SN) ER/MO positive, HER2 negative invasive ductal carcinoma of the left breast. -Status postthoracentesis for malignant pleural effusion right-sided. -Recent diagnosis extensive pulmonary emboli. -History of ovarian cancer. -Germline BRCA2 mutation -Completed adjuvant anastrozole 2020. -EKG from [facility] on presentation to ED demonstrated a corrected QT interval 510 ms. -Reviewed her pathology. -Explained the disease is noncurable but at present time she appears to be a very good candidate for hormone therapy with CD4 6 inhibitor. Also discussed the possible future use of PARP inhibitor. -Discussed staging to include PET scan and MRI brain. She prefers to hold off on this until after her upcoming 69th birthday. She has relatives and a lot of friends coming for that. Plan: -Rx letrozole--she will start that now. -Repeat EKG. -Rx Kisqali after EKG. Verzenio if QT still prolonged -PET scan. -MRI brain. -Dental clearance form provided. She will be a candidate for every 3 month Zometa. -[id number] testing today. -Continue apixaban. -CXR today. I spent a total of 75 minutes on the date of the service which included preparing to see the patient, gwaj-an-hwnp patient care, completing clinical documentation, obtaining and/or reviewing separately obtained history, performing a medically appropriate examination, counseling and educating the patient/family/caregiver, ordering medications, tests, or procedures, communicating with other HCPs (not separately reported), and communicating results to the patient/family/caregiver. John Albright DO documented in this encounter [facility] 03-29-2024 Telephone encounter Note Scheduled with patient [facility] Work Phone: 03-29-2024 Miscellaneous Notes Scheduled with patient LVM for patient to return the call. When patient calls please schedule with either provider 1st available. 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 When patient calls please schedule with either provider 1st available. 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/H/O BREAST/H/O OVARIAN/ THORACENTESIS + MET, BR/REF BY TEETEE MICHAUD* Selin Garnica [facility] Evaluation note Diagnosis Malignant neoplasm of upper-outer quadrant of left breast in female, estrogen receptor positive (HCC)- Primary Malignant pleural effusion BRCA2 gene mutation positive History of ovarian cancer Personal history of malignant neoplasm of ovary Other chronic pulmonary embolism without acute cor pulmonale (HCC) [facility] Diagnosis Malignant neoplasm of upper-outer quadrant of left breast in female, estrogen receptor positive (HCC) Malignant pleural effusion BRCA2 gene mutation positive History of ovarian cancer Personal history of malignant neoplasm of ovary Other chronic pulmonary embolism without acute cor pulmonale (HCC) [facility] Diagnosis Malignant [facility] effusion- [facility] Diagnosis Malignant neoplasm of upper-outer quadrant of left breast in female, estrogen receptor positive (HCC)- Primary 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) [facility] Diagnosis Malignant neoplasm of upper-outer quadrant of left breast in female, estrogen receptor positive (HCC)- Primary [facility] Diagnosis Malignant neoplasm of upper-outer quadrant of left breast in female, estrogen receptor positive (HCC)- Primary Malignant pleural effusion [facility] Diagnosis Malignant neoplasm of upper-outer quadrant of left breast in female, estrogen receptor positive (HCC)- Primary [facility] Diagnosis Malignant neoplasm of upper-outer quadrant of left breast in female, estrogen receptor positive (HCC)- Primary [facility] Diagnosis Malignant neoplasm of upper-outer quadrant of left breast in female, estrogen receptor positive (HCC)- Primary BRCA2 gene mutation positive Malignant pleural effusion Other chronic pulmonary embolism without acute cor pulmonale (HCC) History of ovarian cancer Personal history of malignant neoplasm of ovary 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) [facility] Diagnosis Malignant neoplasm of upper-outer quadrant of left breast in female, estrogen receptor positive (HCC)- Primary documented in this encounter [facility] for referral (narrative)* Outpatient Procedure (Routine) - New Request Specialty Diagnoses / Procedures Referred By Contac t Referred To Contact [facility] Diagnoses Malignant neoplasm of upper-outer quadrant of left breast in female, estrogen receptor positive (HCC) 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) Procedures ECG COMPLETE ECG ROUTINE ECG W/LEAST 12 LDS W/I&R John Albright DO [address] [facility] [place] [address] [facility] [place] [address] [place] [id number] Referral ID Status Reason Start Date Expiration Date Visits Requested Visits Authorized [id number] New Request Auto-Generat ed Referral 04/15/2024 04/15/2025 1 1 [facility] Diagnostic Procedure Only (Routine) - New Request Specialty Diagnoses / Procedures Referred By Mohan watts Referred To Contact [facility] Diagnoses Malignant neoplasm of upper-outer quadrant of left breast in female, estrogen receptor positive (HCC) Malignant pleural effusion Procedures NM PET/CT SKULL-THIGH SUBSEQUENT PET IMAGING CT ATTENUATION SKULL BASE MID-THIGH John Albright DO [address] [place] [address] [facility] [address] [place] [address] Referral ID Status Reason Start Date Expiration Date Visits Requested Visits Authorized [id number] New Request Auto-Generat ed Referral 2024 05/20/2025 1 1 [facility] Summary Purpose Family History No Family History Records FoundNo Family History Records Found Advance Directives No Advanced Directives Records FoundNo Advanced Directives Records Found Reason for Referral Specialty Diagnoses / Procedures Referred By Mohan watts Referred To Contact MR IMAGING Diagnoses Malignant neoplasm of upper-outer quadrant of left breast in female, estrogen receptor positive (HCC) BRCA2 gene mutation positive History of ovarian cancer Procedures MRI BRAIN WO/W IVCON MRI BRAIN BRAIN STEM W/O W/CONTRAST MATERIAL John Albright DO [address] [facility] [place] [address] Mr Imaging [facility] Referral ID Status Reason Start Date Expiration Date Visits Requested Visits Authorized [id number] New Request Auto-Generat ed Referral 04/07/2024 05/07/2025 1 1 Specialty Diagnoses / Procedures Referred By Mohan watts Referred To Contact [facility] FUN[facility] Diagnoses Malignant neoplasm of upper-outer quadrant of left breast in female, estrogen receptor positive (HCC) BRCA2 gene mutation positive History of ovarian cancer Procedures NM PET/CT SKULL-THIGH INITIAL PET IMAGING CT ATTENUATION SKULL BASE MID-THIGH John Albright DO [address] [place] [address] Molecular [facility] [address] [place] [address] Referral ID Status Reason Start Date Expiration Date Visits Requested Visits Authorized [id number] New Request Auto-Generat ed Referral 04/07/2024 05/07/2025 1 1 Additional Source Comments INFORMATION SOURCE (unrecogn ized section and content) DATE CREATED AUTHOR 12/31/2017 [facility] DATE CREATED AUTHOR AUTHOR'S BRIEN ROMERO 05/10/[address] [facility] Source Comments (unrecognize d section and content) In the event this informatio n is protected by the Federal Confidentiality of Alcohol and Drug Abuse Patient Records regulations: The Federal rules restrict any use of the information to criminally investigate or prosecute any alcohol or drug abuse patient.[facility] the event this information is protected by the Federal Confidentiality of Alcohol and Drug Abuse Patient Records regulations: The Federal rules restrict any use of the information to criminally investigate or prosecute any alcohol or drug abuse patient.[facility] the event this information is protected by the Federal Confidentiality of Alcohol and Drug Abuse Patient Records regulations: The Federal rules restrict any use of the information to criminally investigate or prosecute any alcohol or drug abuse patient.[facility] the event this information is protected by the Federal Confidentiality of Alcohol and Drug Abuse Patient Records regulations: The Federal rules restrict any use of the information to criminally investigate or prosecute any alcohol or drug abuse patient.[facility] the event this information is protected by the Federal Confidentiality of Alcohol and Drug Abuse Patient Records regulations: The Federal rules restrict any use of the information to criminally investigate or prosecute any alcohol or drug abuse patient.[facility] the event this information is protected by the Federal Confidentiality of Alcohol and Drug Abuse Patient Records regulations: The Federal rules restrict any use of the information to criminally investigate or prosecute any alcohol or drug abuse patient.[facility] the event this information is protected by the Federal Confidentiality of Alcohol and Drug Abuse Patient Records regulations: The Federal rules restrict any use of the information to criminally investigate or prosecute any alcohol or drug abuse patient.[facility] the event this information is protected by the Federal Confidentiality of Alcohol and Drug Abuse Patient Records regulations: The Federal rules restrict any use of the information to criminally investigate or prosecute any alcohol or drug abuse patient.[facility] the event this information is protected by the Federal Confidentiality of Alcohol and Drug Abuse Patient Records regulations: The Federal rules restrict any use of the information to criminally investigate or prosecute any alcohol or drug abuse patient.[facility] the event this information is protected by the Federal Confidentiality of Alcohol and Drug Abuse Patient Records regulations: The Federal rules restrict any use of the information to criminally investigate or prosecute any alcohol or drug abuse patient.[facility] the event this information is protected by the Federal Confidentiality of Alcohol and Drug Abuse Patient Records regulations: The Federal rules restrict any use of the information to criminally investigate or prosecute any alcohol or drug abuse patient.[facility] Hospital[facility] the event this information is protected by the Federal Confidentiality of Alcohol and Drug Abuse Patient Records regulations: The Federal rules restrict any use of the information to criminally investigate or prosecute any alcohol or drug abuse patient.[facility] the event this information is protected by the Federal Confidentiality of Alcohol and Drug Abuse Patient Records regulations: The Federal rules restrict any use of the information to criminally investigate or prosecute any alcohol or drug abuse patient.[facility] the event this information is protected by the Federal Confidentiality of Alcohol and Drug Abuse Patient Records regulations: The Federal rules restrict any use of the information to criminally investigate or prosecute any alcohol or drug abuse patient.[facility] Hospital[facility] the event this information is protected by the Federal Confidentiality of Alcohol and Drug Abuse Patient Records regulations: The Federal rules restrict any use of the information to criminally investigate or prosecute any alcohol or drug abuse patient.[facility] Reason for Visit (unrecogniz ed section and content) Reason Comments Appointment Reason Comments New Patient Reason Comments Results 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 Comments 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 Kisqali Reason Comments EKG Reason Comments Electronic Communication Reason Onset Date Comments SPP Oral Oncology/hematology - Treatment Referra l 2024 Kisqali 600mg/day Insurance Authorization 2024 [employer] gleason Reason Comments 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 Oral Anti-Cance r Agents (Kisqali) Reason Onset Date Comments SPP Oral Oncology/hematology - Treatment Referra l 05/04/2024 Lynparza 150mg Insurance Authorization 05/04/2024 [employer] Delcidi ng Reason Comments 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 Oral Anti-Cance r Education (lynparza) Reason Comments Patient Question Reason Comments Established Patient Reason Onset Date Comments SPP Oral Oncology/hematology - Treatment Referra l 05/10/2024 Orserdu 345mg Insurance Authorization 05/10/2024 [employer] gleason Reason Comments Medication Problem Care Teams (unrecognized sec tion and content) Barkeep Relationship Specialty Start Date End Date Pablito Rehman MD PCP - General Family Medicine 03/19/16 Barkeep Relationship Specialty Start Date End Date Teetee Michaud MD [address] [facility] [address] [place], [place] [id number] PCP - General Family Medicine 04/07/24 Barkeep Relationship Specialty Start Date End Date Teetee Michaud MD [address] [facility] [address] [place], [place] [id number] PCP - General Family Medicine 04/07/24 Barkeep Relationship Specialty Start Date End Date Teetee Michaud MD [address] [facility] [address] [place], [place] [id number] PCP - General Family Medicine 04/07/24 Barkeep Relationship Specialty Start Date End Date Teetee Michaud MD [address] [facility] [address] [place] [address] PCP - General Family Medicine 04/07/24 Barkeep Relationship Specialty Start Date End Date Teetee Michaud MD [address] [facility] [address] [place] [address] PCP - General Family Medicine 04/07/24 Barkeep Relationship Specialty Start Date End Date Teetee Michaud MD [address] [facility] [address] [place] [address] PCP - General Family Medicine 04/07/24 Barkeep Relationship Specialty Start Date End Date Teetee Michaud MD [address] [facility] [address] [place] [address] PCP - General Family Medicine 04/07/24 Barkeep Relationship Specialty Start Date End Date Teetee Michaud MD [address] [facility] [address] [place] [address] PCP - General Family Medicine 04/07/24 Barkeep Relationship Specialty Start Date End Date Teetee Michaud MD [address] [facility] [address] [place] [address] PCP - General Family Medicine 04/07/24 Barkeep Relationship Specialty Start Date End Date Teetee Michaud MD [address] [facility] [address] [place] [address] PCP - General Family Medicine 04/07/24 FOR RECORDS PERTAINING TO PATIENTS WHO ARE OR HAVE BEEN ENROLLED IN A CHEMICAL DEPENDENCY/SUBSTANCEABUSE PROGRAM, SOME INFORMATION MAY BE OMITTED. This clinical summary was aggregated from multiple sources. Caution should be exercised in using it in the provision of clinical care. This summary normalizes information from multiple sources, and as a consequence, information in this document may materially change the coding, format and clinical context of patient data. In addition, data may be omitted in some cases. CLINICAL DECISIONS SHOULD BE BASED ON THE PRIMARY CLINICAL RECORDS. [facility]. provides no warranty or guarantee of the accuracy or completeness of information in this document.
== END | disposition home or self-care (01) ==
LOC: US 11:45
PROVIDERS: PCP Family Medicine; Referring Provider Internal Medicine Hematology & Oncology; Visit Provider Internal Medicine Hematology & Oncology
DX: J90 Pleural effusion, not elsewhere classified (principal)
CPT/HCPCS: 32555; 71046

== ENCOUNTER → 2024-05-31 | Outpatient (CLI) | payer MEDICARE, OTHER, SELFPAY ==
--- NOTE | 2024-05-31 10:23 | US_ITS ---
PROCEDURE: ULTRASOUND GUIDED THORACENTESIS. DATE: May 31, 2024.. INDICATION: Female, 69 years old. Right pleural effusion. PHYSICIAN: North Bauman M.D. PROCEDURE: The risks, benefits, and alternatives to the procedure were explained to the patient. The specific risks of bleeding, infection, and pneumothorax requiring chest tube insertion were discussed and accepted. Written informed consent was obtained. Ultrasonographic evaluation of the right lower pleural space was carried out. An adequate pocket was identified. The patient was placed in the sitting, upright position. The overlying skin was prepped and draped in sterile fashion. 1% lidocaine was administered subcutaneously for local anesthesia. Under ultrasound guidance, a 5 Emirati thoracentesis needle/catheter system was advanced into the right posterior lower pleural fluid collection. Approximately 1890 mL of jimmie-colored fluid was drained. The catheter was removed, and a sterile dressing was applied. The patient tolerated the procedure well. A chest x-ray was ordered. US/Thoracentesis W US IMPRESSION: Ultrasound-guided right thoracentesis. Electronically Signed: North Bauman MD at 11:51 EST ,
[2024-05-31 10:40] VITALS: BP 135/78; PULSE 98; RESP 18; TEMP 36.4; O2SAT 96
[2024-05-31] MEDS: Lidocaine 2% (20 ml mdv) 20 ML Vial INFILT (10:50)
[2024-05-31 10:53] VITALS: BP 141/77; PULSE 97; RESP 18; O2SAT 97
[2024-05-31 11:00] VITALS: BP 128/71; PULSE 76; RESP 18; O2SAT 95
--- NOTE | 2024-05-31 11:07 | RAD_ITS ---
STUDY: X-RAY CHEST REASON FOR EXAM: Female, 69 years old. Post thora TECHNIQUE: AP inspiration and expiration views. COMPARISON: Comparison is made with prior study dated May 10, 2024. FINDINGS: The patient is status post right thoracentesis. There is no evidence of pneumothorax. Mild residual bilateral pleural-parenchymal changes. RAD/Chest Insp/Exp 2 View IMPRESSION: No evidence of pneumothorax on the post right thoracentesis. Electronically Signed: North Bauman MD at 12:11 EST ,
[2024-05-31 11:13] VITALS: BP 116/85; PULSE 86; RESP 18; O2SAT 94
== END | disposition home or self-care (01) ==
LOC: US 10:22
PROVIDERS: PCP Family Medicine; Referring Provider Internal Medicine Hematology & Oncology; Visit Provider Internal Medicine Hematology & Oncology
DX: J90 Pleural effusion, not elsewhere classified (principal)
CPT/HCPCS: 32555; 71046

== ENCOUNTER → 2024-06-21 | Outpatient (CLI) | payer MEDICARE, OTHER, SELFPAY ==
--- NOTE | 2024-06-21 07:41 | RAD_ITS ---
STUDY: X-RAY CHEST REASON FOR EXAM: Female, 69 years old. Post thoracentesis TECHNIQUE: AP inspiration and expiration views. COMPARISON: Comparison is made with prior study dated May 31, 2024. FINDINGS: The patient status post right thoracentesis. No evidence of pneumothorax. Residual bilateral pleural-parenchymal changes at the bases slightly more prominent on the right side. RAD/Chest Insp/Exp 2 View IMPRESSION: Status post right thoracentesis. No evidence of pneumothorax. Bibasilar pleural-parenchymal changes slightly worse on the right side. Electronically Signed: North Bauman MD at 13:21 EST ,
[2024-06-21 12:19] VITALS: BP 128/65; PULSE 90; RESP 16; O2SAT 96
[2024-06-21] MEDS: Lidocaine 2% (20 ml mdv) 20 ML Vial INFILT (12:20)
[2024-06-21 12:32] VITALS: BP 69/39; PULSE 54; RESP 16; O2SAT 95
[2024-06-21 12:36] VITALS: BP 78/42; PULSE 58; RESP 16; O2SAT 94
--- NOTE | 2024-06-21 12:37 | PCM.OPRPT ---
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 Albright INDICATION: Female, 69 years old. Right pleural effusion. PROVIDER: Marah Schmidt CNP PROCEDURE: The risks, benefits, and alternatives to the procedure were explained to the patient. The specific risks of bleeding, infection, and pneumothorax requiring chest tube insertion were discussed and accepted. Written informed consent was obtained. The patient was placed in the sitting, upright position. Ultrasonographic evaluation of the bilateral lower pleural spaces was carried out. An adequate pocket was identified in the right lower lobe. The overlying skin was prepped with chlorhexidine and draped in sterile fashion. 2 % lidocaine was administered subcutaneously for local anesthesia. Under ultrasound guidance, a 5-Albanian thoracentesis needle/catheter system was advanced into the right posterior lower pleural fluid collection. 1220 ml of clear yellow colored fluid was drained. The catheter was removed, and a sterile dressing was applied. The patient tolerated the procedure well. A chest x-ray was ordered. IMPRESSION: Successful ultrasound guided thoracentesis of right pleural effusion. Surgical Findings: none Complications Complications: No
[2024-06-21 12:38] VITALS: BP 96/55; PULSE 68; RESP 16; O2SAT 92
[2024-06-21 12:43] VITALS: BP 109/61; PULSE 64; RESP 16; O2SAT 93
[2024-06-21 12:48] VITALS: BP 115/67; PULSE 68; RESP 16; O2SAT 94
== END | disposition home or self-care (01) ==
LOC: US 11:48
PROVIDERS: PCP Family Medicine; Referring Provider Internal Medicine Hematology & Oncology; Visit Provider Internal Medicine Hematology & Oncology
DX: J90 Pleural effusion, not elsewhere classified (principal)
CPT/HCPCS: 32555; 71046

== ENCOUNTER → 2024-07-15 | Outpatient (CLI) | payer MEDICARE, OTHER, SELFPAY ==
[2024-07-15] VITALS (7 sets, daily range): BP systolic 126–175; BP diastolic 70–95; PULSE 105–116; RESP 18; O2SAT 90–95
[2024-07-15] MEDS: Lidocaine 2% (20 ml mdv) 20 ML Vial INFILT (12:16)
--- NOTE | 2024-07-15 12:36 | PCM.OPRPT ---
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 Pleural effusion. PROVIDER: Marah Schmidt CNP PROCEDURE: The risks, benefits, and alternatives to the procedure were explained to the patient. The specific risks of bleeding, infection, and pneumothorax requiring chest tube insertion were discussed and accepted. Written informed consent was obtained. The patient was placed in the sitting, upright position. Ultrasonographic evaluation of the bilateral lower pleural spaces was carried out. An adequate pocket was identified in the right lower lobe. The overlying skin was prepped with chlorhexidine and draped in sterile fashion. 2 % lidocaine was administered subcutaneously for local anesthesia. Under ultrasound guidance, a 5-Tamazight thoracentesis needle/catheter system was advanced into the right posterior lower pleural fluid collection. 1960 ml of clear yellow colored fluid was drained. The catheter was removed, and a sterile dressing was applied. The patient tolerated the procedure well. A chest x-ray was ordered. IMPRESSION: Successful ultrasound guided thoracentesis of right pleural effusion. Surgical Findings: none Complications Complications: No
--- NOTE | 2024-07-15 12:40 | RAD_ITS ---
INDICATION: post thoracentesis EXAMINATION/TECHNIQUE: X-RAY - XR Chest 2 Views COMPARISON: June 21, 2024 FINDINGS: LINES/DEVICES: None. LUNGS: There are bilateral pleural effusions. No pneumothorax is apparent. Within the left hilar region there is a 2.7 cm nodular opacity. MEDIASTINUM AND CARDIOVASCULAR STRUCTURES: Cardiac silhouette not enlarged. Central airways and mediastinal contour are unremarkable. BONES AND SOFT TISSUES: Unremarkable. RAD/Chest Insp/Exp 2 View IMPRESSION: Bilateral pleural effusions, cannot exclude associated bibasilar consolidation. No apparent pneumothorax. 2.7 cm left hilar nodular opacity, may reflect an enlarged lymph node or pulmonary nodule. Electronically Signed: Homa Walsh MD at 13:39 EST ,
== END | disposition home or self-care (01) ==
PROVIDERS: PCP Family Medicine; Referring Provider Internal Medicine Hematology & Oncology; Visit Provider Internal Medicine Hematology & Oncology
DX: J90 Pleural effusion, not elsewhere classified (principal)
CPT/HCPCS: 32555; 71046

== ENCOUNTER → 2024-07-22 | Outpatient (CLI) | payer MEDICARE, OTHER, SELFPAY ==
[2024-07-22] VITALS (9 sets, daily range): BP systolic 111–153; BP diastolic 59–77; PULSE 101–106; RESP 16–24; TEMP 36.2; O2SAT 93–94
--- NOTE | 2024-07-22 11:59 | US_ITS ---
PROCEDURE: ULTRASOUND GUIDED THORACENTESIS. DATE: July 22, 2024. INDICATION: Female, 69 years old. Right pleural effusion. PHYSICIAN: North Bauman M.D. PROCEDURE: The risks, benefits, and alternatives to the procedure were explained to the patient. The specific risks of bleeding, infection, and pneumothorax requiring chest tube insertion were discussed and accepted. Written informed consent was obtained. Ultrasonographic evaluation of the right lower pleural space was carried out. An adequate pocket was identified. The patient was placed in the sitting, upright position. The overlying skin was prepped and draped in sterile fashion. 1% lidocaine was administered subcutaneously for local anesthesia. Under ultrasound guidance, a 5 Macanese thoracentesis needle/catheter system was advanced into the right posterior lower pleural fluid collection. Approximately 1980 mL of jimmie-colored fluid was drained. The catheter was removed, and a sterile dressing was applied. The patient tolerated the procedure well. A chest x-ray was ordered. US/Thoracentesis W US IMPRESSION: Ultrasound-guided right thoracentesis. Electronically Signed: North Bauman MD at 13:22 EST ,
[2024-07-22] MEDS: Lidocaine 2% (20 ml mdv) 20 ML Vial INFILT (12:42)
--- NOTE | 2024-07-22 13:04 | RAD_ITS ---
STUDY: X-RAY CHEST REASON FOR EXAM: Female, 69 years old. Post thoracentesis TECHNIQUE: AP inspiration and expiration views. COMPARISON: Comparison is made with prior study dated July 15, 2024. FINDINGS: The patient is status post right thoracentesis. No evidence of pneumothorax. Bilateral pleural parenchymal changes at the lung bases. RAD/Chest Insp/Exp 2 View IMPRESSION: Status post right thoracentesis. No evidence of pneumothorax. Residual small bilateral pleural-parenchymal changes. Electronically Signed: North Bauman MD at 13:40 EST ,
== END | disposition home or self-care (01) ==
LOC: US 11:59
PROVIDERS: PCP Family Medicine; Referring Provider Internal Medicine Hematology & Oncology; Visit Provider Internal Medicine Hematology & Oncology
DX: C50.911 Malignant neoplasm of unspecified site of right female breast (principal); J91.0 Malignant pleural effusion; C78.2 Secondary malignant neoplasm of pleura
CPT/HCPCS: 32555; 71046

== ENCOUNTER → 2024-07-26 | Outpatient (CLI) | payer MEDICARE, OTHER, SELFPAY ==
--- NOTE | 2024-07-26 13:00 | RAD_ITS ---
STUDY: X-RAY CHEST REASON FOR EXAM: Female, 69 years old. Post thora TECHNIQUE: AP inspiration and expiration views. COMPARISON: Comparison is made with prior study dated July 22, 2024. FINDINGS: Status post right thoracentesis. No evidence of pneumothorax. Residual bilateral pleural-parenchymal changes. RAD/Chest Insp/Exp 2 View IMPRESSION: Status post right thoracentesis. No evidence of pneumothorax. Electronically Signed: North Bauman MD at 13:15 EST ,
[2024-07-26 13:15] VITALS: BP 132/73; PULSE 109; RESP 20; O2SAT 94
[2024-07-26 13:16] VITALS: BP 141/74; PULSE 109; RESP 18; O2SAT 95
--- NOTE | 2024-07-26 13:47 | PCM.OPRPT ---
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 Albright INDICATION: Female, 69 years old. Pleural effusion. PROVIDER: Marah Schmidt OUTREACH DIRECTOR PROCEDURE: The risks, benefits, and alternatives to the procedure were explained to the patient. The specific risks of bleeding, infection, and pneumothorax requiring chest tube insertion were discussed and accepted. Written informed consent was obtained. The patient was placed in the sitting, upright position. Ultrasonographic evaluation of the bilateral lower pleural spaces was carried out. An adequate pocket was identified in the right. There was also similar amount of fluid collection noticed on the left. The overlying skin was prepped with chlorhexidine and draped in sterile fashion. 2 % lidocaine was administered subcutaneously for local anesthesia. Under ultrasound guidance, a 5-Polish thoracentesis needle/catheter system was advanced into the right posterior lower pleural fluid collection. 1320 ml of clear yellow colored fluid was drained. The catheter was removed, and a sterile dressing was applied. The patient tolerated the procedure well. A chest x-ray was ordered. IMPRESSION: Successful ultrasound guided thoracentesis of right pleural effusion. Surgical Findings: None Complications Complications: No
== END | disposition home or self-care (01) ==
LOC: US 12:00
PROVIDERS: PCP Family Medicine; Referring Provider Internal Medicine Hematology & Oncology; Visit Provider Internal Medicine Hematology & Oncology
DX: C50.911 Malignant neoplasm of unspecified site of right female breast (principal); C78.2 Secondary malignant neoplasm of pleura; J91.0 Malignant pleural effusion
CPT/HCPCS: 32555; 71046

== ENCOUNTER → 2024-07-27 | Outpatient (CLI) | payer MEDICARE, OTHER, SELFPAY ==
[2024-07-27 10:35] VITALS: BP 128/65; PULSE 107; RESP 18; TEMP 36.4; O2SAT 96
[2024-07-27 10:45] VITALS: BP 126/69; PULSE 103; RESP 18; O2SAT 98
[2024-07-27] MEDS: Lidocaine 2% (20 ml mdv) 20 ML Vial INFILT (10:45)
[2024-07-27 10:48] VITALS: BP 121/73; PULSE 101; RESP 18; O2SAT 97
[2024-07-27 10:50] VITALS: BP 112/60; PULSE 102; RESP 18; O2SAT 96
[2024-07-27 10:55] VITALS: BP 109/72; PULSE 104; RESP 18; O2SAT 96
== END | disposition home or self-care (01) ==
PROVIDERS: PCP Family Medicine; Referring Provider Internal Medicine Hematology & Oncology; Visit Provider Internal Medicine Hematology & Oncology
DX: C50.412 Malignant neoplasm of upper-outer quadrant of left female breast (principal); J91.0 Malignant pleural effusion; Z17.0 Estrogen receptor positive status [ER+]
CPT/HCPCS: 32555; 71046

== ENCOUNTER → 2024-07-30 | Outpatient (CLI) | payer MEDICARE, OTHER, SELFPAY ==
[2024-07-30 12:08] VITALS: BP 104/58; PULSE 104; RESP 16; O2SAT 96
[2024-07-30 12:15] VITALS: BP 102/61; PULSE 104; RESP 16; O2SAT 96
[2024-07-30] MEDS: Lidocaine 2% (20 ml mdv) 20 ML Vial INFILT (12:20)
[2024-07-30 12:30] VITALS: BP 112/55; PULSE 104; RESP 16; O2SAT 97
--- NOTE | 2024-07-30 12:30 | RAD_ITS ---
STUDY: X-RAY CHEST REASON FOR EXAM: Female, 69 years old. Post thoracentesis TECHNIQUE: AP and inspiration expiration views. COMPARISON: Comparison is made with prior study dated January 24, 2005. FINDINGS: The patient is status post left thoracentesis. No evidence of pneumothorax. RAD/Chest Insp/Exp 2 View IMPRESSION: No evidence of pneumothorax following the thoracentesis. Electronically Signed: North Bauman MD at 12:46 EST ,
--- NOTE | 2024-07-30 12:35 | PCM.OPRPT ---
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 Albright INDICATION: Female, 69 years old. Pleural effusion. PROVIDER: Marah Schmidt CNP PROCEDURE: The risks, benefits, and alternatives to the procedure were explained to the patient. The specific risks of bleeding, infection, and pneumothorax requiring chest tube insertion were discussed and accepted. Written informed consent was obtained. The patient was placed in the sitting, upright position. Ultrasonographic evaluation of the bilateral lower pleural spaces was carried out. An adequate pocket was identified in the right. The overlying skin was prepped with chlorhexidine and draped in sterile fashion. 2 % lidocaine was administered subcutaneously for local anesthesia. Under ultrasound guidance, a 5-Italian thoracentesis needle/catheter system was advanced into the right posterior lower pleural fluid collection. 1090 ml of clear yellow colored fluid was drained. The catheter was removed, and a sterile dressing was applied. The patient tolerated the procedure well. A chest x-ray was ordered. IMPRESSION: Successful ultrasound guided thoracentesis of right pleural effusion. Surgical Findings: None Complications Complications: No
[2024-07-30 12:45] VITALS: BP 108/58; PULSE 97; RESP 16; O2SAT 97
== END | disposition home or self-care (01) ==
LOC: US 11:41
PROVIDERS: PCP Family Medicine; Referring Provider Internal Medicine Hematology & Oncology; Visit Provider Internal Medicine Hematology & Oncology
DX: C50.911 Malignant neoplasm of unspecified site of right female breast (principal); C78.2 Secondary malignant neoplasm of pleura; J91.0 Malignant pleural effusion
CPT/HCPCS: 32555; 71046

== ENCOUNTER → 2024-08-03 | Outpatient (CLI) | payer MEDICARE, OTHER, SELFPAY ==
--- NOTE | 2024-08-03 11:30 | PET_ITS ---
EXAMINATION: FDG PET-CT INDICATIONS: A 69-year-old female with history of primary breast carcinoma presenting for restaging examination. COMPARISON EXAMINATION: FDG PET-CT study dated 04/27/24 INDEX LESION SIZE SUV INTERPRETATION NEW: right hemithorax mid-lower anterior 49.7-mm 3.5 Fulfills quantitative criteria for viable neoplasm PERSISTENT: right lower posterior hemithorax 3.9 comp to 3.3 (04/27/24) Quantitative criteria for viable neoplasm are fulfilled, minimal interim metabolic change, relative metabolic stability NEW: left hemithorax pleural interface, bilateral thoracic perihilum Quantitative criteria for viable neoplasm are not fulfilled NEW: left and right lobe hepatic parenchyma 16.9-mm 4.8 ratio > 2.0 Fulfills quantitative criteria for viable neoplasm PERSISTENT and NEW: appendicular, axial skeleton 4.6 comp to 3.9 (04/27/24) Fulfills quantitative criteria for viable neoplasm, interim metabolic progression based on overall number of hypermetabolic foci TECHNIQUE: Following the intravenous administration of 14.6 mCi of F-18 deoxyglucose, multiplanar image acquisitions of the neck, chest, abdomen and pelvis to level of mid thigh, obtained at one hour post radiopharmaceutical administration contemporaneously interpreted with the current CT of the neck, chest, abdomen and pelvis, to level of mid thigh, dated 08/03/24 via coregistration and FDG PET-CT study dated 04/27/24 reveals: HEIGHT:?65 inches?WEIGHT: 184 lbs. FINDINGS: HEAD/NECK: There is no evidence of abnormal increased glucose metabolism in the pharyngeal mucosal space, parapharyngeal space, bilateral-lateral and anterior neck, hypopharynx and distribution of the laryngeal structures. The visualized portion of the cerebral cortical-subcortical structures demonstrate symmetric and preserved glucose metabolism. CHEST: Newly defined increased FDG concentration is noted in the right mid to lower anterior hemithorax. The calculated maximal standard uptake value is 3.5. The maximal axial diameter of the metabolic, morphologic abnormality is 49.7-mm. Redefined increased tracer uptake is noted in the right lower posteromedial hemithorax at the pleural interface. The calculated maximal standard uptake value is 3.9, compared to 3.3. Newly identified increased radiopharmaceutical concentration is noted in the left hemithorax at the base posteriorly with a calculated maximal standard uptake value of 2.2. Facilitated FDG concentration is subtly apparent in the bilateral thoracic perihilum with a calculated maximal standard uptake value of 2.3. Bilateral hemithorax pleural effusions demonstrate no evidence of quantitatively significant increased FDG concentration. Previously defined morphologic-anatomic changes noted on review of CT of the chest dated 04/27/24, are essentially unchanged on the current examination. ABDOMEN/PELVIS: Facilitated uptake is newly apparent in the left and right lobe of the hepatic (4.1). The calculated maximal standard uptake value is 4.8, with a lesion to liver background ratio greater than 2.0. The most conspicuous metabolic abnormality demonstrates a maximal axial diameter of 16.9-mm. Normal physiologic distribution of the radiopharmaceutical is apparent in the splenic parenchyma, both renal units, bladder and visualized intestinal tract. Diffuse radiopharmaceutical concentration is noted in all four quadrants of the abdomen and pelvis. Review of CT of the abdomen and pelvis dated 04/27/24 demonstrates no significant interval change. SKELETAL: Redefined and newly apparent foci of increased tracer uptake are noted in the osseous skeletal structures generating a calculated maximal standard uptake value of 4.6, compared to 3.9. PET/PET/CT Tumor Base -Thigh Subs IMPRESSION: 1. ABNORMAL EXAMINATION INDICATIVE OF MALIGNANT VIABLE NEOPLASM. 2. Increased radiopharmaceutical concentration both redefined and newly apparent in the left hemithorax fulfills quantitative criteria for viable neoplasm. (Lee et al, Journal of Clinical Oncology 16:2142, 1998). 3. Left and right lobe hepatic parenchymal hypermetabolic foci fulfill quantitative criteria for neoplastic transformation. (Jacinta et al, Archives of Surgery, 133:510 1998). 4. Both redemonstrated and newly apparent osseous skeletal hypermetabolic foci fulfill quantitative criteria for viable osseous neoplasm. 5. Enhanced tracer uptake noted in the bilateral thoracic perihilum does not fulfill quantitative criteria for neoplasia. 6. Overall, compared to the prior FDG PET study dated 04/27/24, there is interim metabolic progression of defined viable neoplastic disease within the left hemithorax at the pleural interface, the osseous skeletal structures and left lobe of the hepatic parenchyma with the remaining abnormalities relatively stable and unchanged in presentation. Electronic Signature Nicolas Cuellar D.O. Accurate Quantification of SUVs for this report are calculated using the exclusive [employer]. (U.S. Patent No. [phone] [phone] [place] patent [phone]). Standardization and correction of the FDG SUV metric via [employer] technology allow for vendor non-specific objective quantitative examination comparison and optimization of the sensitivity and specificity of the FDG PET-CT examination. [email or web address] Electronically Signed: Nicolas Cuellar DO at 23:26 EST ,
== END | disposition home or self-care (01) ==
LOC: ONC 10:13
PROVIDERS: PCP Family Medicine; Referring Provider Internal Medicine Hematology & Oncology; Visit Provider Internal Medicine Hematology & Oncology
DX: C50.412 Malignant neoplasm of upper-outer quadrant of left female breast (principal); Z17.0 Estrogen receptor positive status [ER+]
CPT/HCPCS: 78815; A9552

== ENCOUNTER → 2024-08-03 | Outpatient (CLI) | payer MEDICARE, OTHER, SELFPAY ==
--- NOTE | 2024-08-03 09:18 | US_ITS ---
PROCEDURE: ULTRASOUND GUIDED THORACENTESIS. DATE: August 03, 2024.. INDICATION: Female, 69 years old. Right pleural effusion. PHYSICIAN: North Bauman M.D. PROCEDURE: The risks, benefits, and alternatives to the procedure were explained to the patient. The specific risks of bleeding, infection, and pneumothorax requiring chest tube insertion were discussed and accepted. Written informed consent was obtained. Ultrasonographic evaluation of the right lower pleural space was carried out. An adequate pocket was identified. The patient was placed in the sitting, upright position. The overlying skin was prepped and draped in sterile fashion. 1% lidocaine was administered subcutaneously for local anesthesia. Under ultrasound guidance, a 5 Georgian thoracentesis needle/catheter system was advanced into the right posterior lower pleural fluid collection. Approximately 1010 mL of jimmie-colored fluid was drained. The catheter was removed, and a sterile dressing was applied. The patient tolerated the procedure well. A chest x-ray was ordered. US/Thoracentesis W US IMPRESSION: Ultrasound-guided right thoracentesis. Electronically Signed: North Bauman MD at 10:14 [facility] ,
[2024-08-03] MEDS: Lidocaine 2% (20 ml mdv) 20 ML Vial INFILT (09:41)
--- NOTE | 2024-08-03 09:52 | RAD_ITS ---
STUDY: X-RAY CHEST REASON FOR EXAM: Female, 69 years old. Post thora TECHNIQUE: AP inspiration and expiration views. COMPARISON: Comparison is made with prior study dated January 27, 2025. FINDINGS: The patient is status post right thoracentesis. There is no evidence of pneumothorax. RAD/Chest Insp/Exp 2 View IMPRESSION: No evidence of pneumothorax following the right thoracentesis. Residual pleural parenchymal changes at both lung bases. Electronically Signed: North Bauman MD at 11:01 EST ,
[2024-08-03 10:09] VITALS: BP 140/66; PULSE 102; RESP 18; TEMP 36.2; O2SAT 99
[2024-08-03 10:11] VITALS: BP 123/72; PULSE 99; RESP 18; O2SAT 100
== END | disposition home or self-care (01) ==
LOC: US 09:18
PROVIDERS: PCP Family Medicine; Referring Provider Internal Medicine Hematology & Oncology; Visit Provider Internal Medicine Hematology & Oncology
DX: J90 Pleural effusion, not elsewhere classified (principal)
CPT/HCPCS: 32555; 71046

== ENCOUNTER → 2024-08-09 | Outpatient (CLI) | payer MEDICARE, OTHER, SELFPAY ==
[2024-08-09] MEDS: Lidocaine 2% (20 ml mdv) 20 ML Vial INFILT (10:04)
--- NOTE | 2024-08-09 10:16 | US_ITS ---
PROCEDURE: ULTRASOUND GUIDED THORACENTESIS. DATE: August 09, 2024.. INDICATION: Female, 69 years old. Right pleural effusion PHYSICIAN: North Bauman M.D. PROCEDURE: The risks, benefits, and alternatives to the procedure were explained to the patient. The specific risks of bleeding, infection, and pneumothorax requiring chest tube insertion were discussed and accepted. Written informed consent was obtained. Ultrasonographic evaluation of the right lower pleural space was carried out. An adequate pocket was identified. The patient was placed in the sitting, upright position. The overlying skin was prepped and draped in sterile fashion. 1% lidocaine was administered subcutaneously for local anesthesia. Under ultrasound guidance, a 5 Malaysian thoracentesis needle/catheter system was advanced into the right posterior lower pleural fluid collection. Approximately 1120 mL of jimmie-colored fluid was drained. The catheter was removed, and a sterile dressing was applied. The patient tolerated the procedure well. A chest x-ray was ordered. US/Thoracentesis W US IMPRESSION: Ultrasound-guided right thoracentesis. Electronically Signed: North Bauman MD at 12:14 [facility] ,
[2024-08-09 10:30] VITALS: BP 117/83; PULSE 107; RESP 18; TEMP 36.4; O2SAT 98
[2024-08-09 10:47] VITALS: BP 115/76; PULSE 106; RESP 18; O2SAT 98
[2024-08-09 10:50] VITALS: BP 117/69; PULSE 106; RESP 18; O2SAT 98
[2024-08-09 10:55] VITALS: BP 127/71; PULSE 105; RESP 18; O2SAT 97
--- NOTE | 2024-08-09 10:59 | OP.PCM_ITS ---
Problems Associated Problem List Diagnoses (1) Bilateral pleural effusion: Multi Select Codes Radiology Radiology US Procedures: 52261 Thoracentesis Operative Report (Standard) Operative Information Date of Procedure: 08/09/24 Pre-Operative Diagnosis: Pleural effusion Post-Operative Diagnosis: Pleural effusion Surgery/Procedure Performed: Ultrasound-guided thoracentesis apprentice plumber: No Type of Anesthesia: Local Procedure Start Time: 10:31 Procedure Stop Time: 10:55 Select all DRAINS/GRAFTS/IMPLANTS that apply: None Estimated Blood Loss: 0 Specimen collected: No Description of surgery: PROCEDURE: Ultrasound Guided Thoracentesis ORDERING PROVIDER: Dr. Albright INDICATION: Female, 69 years old. Pleural effusion. PROVIDER: Marah Schmidt CNP PROCEDURE: The risks, benefits, and alternatives to the procedure were explained to the patient. The specific risks of bleeding, infection, and pneumothorax requiring chest tube insertion were discussed and accepted. Written informed consent was obtained. The patient was placed in the sitting, upright position. Ultrasonographic evaluation of the bilateral lower pleural spaces was carried out. An adequate pocket was identified in the right lower lobe. The overlying skin was prepped with chlorhexidine and draped in sterile fashion. 2 % lidocaine was administered subcutaneously for local anesthesia. Under ultrasound guidance, a 5-Georgian thoracentesis needle/catheter system was advanced into the right posterior lower pleural fluid collection. 1120 ml of clear yellow colored fluid was drained. The catheter was removed, and a sterile dressing was applied. The patient tolerated the procedure well. A chest x-ray was ordered. IMPRESSION: Successful ultrasound guided thoracentesis of right pleural effusion. Surgical Findings: None Complications Complications: No
--- NOTE | 2024-08-09 11:01 | RAD_ITS ---
STUDY: X-RAY CHEST REASON FOR EXAM: Female, 69 years old. Post thoracentesis TECHNIQUE: AP inspiration and expiration views. COMPARISON: Comparison is made with prior study dated August 03, 2024. FINDINGS: The patient is status post right thoracentesis. No evidence of pneumothorax. Residual bilateral pleural-parenchymal changes. RAD/Chest Insp/Exp 2 View IMPRESSION: Status post right thoracentesis. No evidence of pneumothorax. Electronically Signed: North Bauman MD at 11:28 EST ,
[2024-08-09 11:03] VITALS: BP 103/60; PULSE 104; RESP 18; TEMP 36.5; O2SAT 98
== END | disposition home or self-care (01) ==
LOC: US 10:16
PROVIDERS: PCP Family Medicine; Referring Provider Internal Medicine Hematology & Oncology; Visit Provider Internal Medicine Hematology & Oncology
DX: C50.911 Malignant neoplasm of unspecified site of right female breast (principal); C78.2 Secondary malignant neoplasm of pleura; J91.0 Malignant pleural effusion
CPT/HCPCS: 32555; 71046

== ENCOUNTER → 2024-08-16 | Outpatient (CLI) | payer MEDICARE, OTHER, SELFPAY ==
--- NOTE | 2024-08-16 11:50 | US_ITS ---
EXAM: THORACENTESIS W US CLINICAL HISTORY: Malignant right pleural effusion. COMPARISON: Comparison is made with prior study dated August 09, 2024. TECHNIQUE: The procedure as well as the benefits and possible complications including infection, bleeding and pneumothorax were explained to the patient. Informed consent was obtained. The procedure was performed with the nurse practitioner Marycarmen Townsend. The overlying skin was prepped and draped in the usual sterile fashion. Following local anesthetic application, a 5 Italian catheter was placed into the pleural space. 1240 mL of jimmie colored fluid was aspirated. FINDINGS: 1240 mL of jimmie colored fluid was aspirated. US/Thoracentesis W US IMPRESSION: Successful thoracentesis. Reading Location: [facility]
[2024-08-16] MEDS: Lidocaine 2% (20 ml mdv) 20 ML Vial INFILT (12:12)
--- NOTE | 2024-08-16 12:27 | RAD_ITS ---
EXAM: CHEST INSP/EXP 2 VIEW CLINICAL HISTORY: The patient is status post right thoracentesis. COMPARISON: Comparison is made with prior study dated August 09, 2024. TECHNIQUE: AP inspiration expiration views. FINDINGS: No evidence of pneumothorax. Residual bilateral pleural-parenchymal changes. RAD/Chest Insp/Exp 2 View IMPRESSION: No evidence of pneumothorax on the post right thoracentesis examination. Reading Location: [facility]
[2024-08-16 12:49] VITALS: BP 132/52; PULSE 104; RESP 18; TEMP 36.7; O2SAT 97
[2024-08-16 12:52] VITALS: BP 134/65; PULSE 102; RESP 18; O2SAT 97
[2024-08-16 12:53] VITALS: BP 124/68; BP 129/75; PULSE 101; PULSE 107; RESP 18; O2SAT 97
== END | disposition home or self-care (01) ==
LOC: US 11:49
PROVIDERS: PCP Family Medicine; Referring Provider Internal Medicine Hematology & Oncology; Visit Provider Internal Medicine Hematology & Oncology
DX: J90 Pleural effusion, not elsewhere classified (principal)
CPT/HCPCS: 32555; 71046

== ENCOUNTER → 2024-08-23 | Outpatient (CLI) | payer MEDICARE, OTHER, SELFPAY ==
--- NOTE | 2024-08-23 10:27 | US_ITS ---
EXAM: THORACENTESIS W US CLINICAL HISTORY: Right pleural effusion. COMPARISON: Comparison is made with prior study dated August 16, 2024. TECHNIQUE: The procedure as well as the benefits and possible complications including infection and bleeding were explained to the patient. Informed consent was obtained. The procedure was performed with Marah Schmidt CNP. FINDINGS: The posterior right hemithorax was prepped and draped in usual sterile fashion. Following local anesthetic application, a 5 Upper Sorbian small caliber catheter was placed into the right pleural space. Barbara colored fluid was aspirated. 1550 mL were removed. The patient tolerated the procedure well. A chest radiograph will be obtained. US/Thoracentesis W US IMPRESSION: Successful ultrasound-guided right thoracentesis. Reading Location: [place] [address]
[2024-08-23 10:34] VITALS: BP 100/80; PULSE 116; RESP 18; TEMP 36.5; O2SAT 97
[2024-08-23] MEDS: Lidocaine 2% (20 ml mdv) 20 ML Vial INFILT (10:45)
[2024-08-23 10:48] VITALS: BP 127/82; PULSE 109; RESP 18; O2SAT 97
[2024-08-23 10:57] VITALS: BP 118/69; PULSE 109; RESP 18; TEMP 36.5; O2SAT 98
--- NOTE | 2024-08-23 11:01 | OP.PCM_ITS ---
Problems Associated Problem List Diagnoses (1) Pleural effusion, right: Multi Select Codes Radiology Radiology US Procedures: 85284 Thoracentesis Operative Report (Standard) Operative Information Date of Procedure: 08/23/24 Pre-Operative Diagnosis: Pleural effusion Post-Operative Diagnosis: Pleural effusion Surgery/Procedure Performed: Ultrasound-guided thoracentesis pipe straightener: No Type of Anesthesia: Local Procedure Start Time: 10:40 Procedure Stop Time: 10:59 Select all DRAINS/GRAFTS/IMPLANTS that apply: None Estimated Blood Loss: 0 Specimen collected: No Description of surgery: PROCEDURE: Ultrasound Guided Thoracentesis ORDERING PROVIDER: Dr. Albright INDICATION: Female, 69 years old. Pleural effusion. PROVIDER: Marah Schmidt SOLAR ENERGY CONSULTANT AND DESIGNER PROCEDURE: The risks, benefits, and alternatives to the procedure were explained to the patient. The specific risks of bleeding, infection, and pneumothorax requiring chest tube insertion were discussed and accepted. Written informed consent was obtained. The patient was placed in the sitting, upright position. Ultrasonographic evaluation of the bilateral lower pleural spaces was carried out. An adequate pocket was identified in the right. The overlying skin was prepped with chlorhexidine and draped in sterile fashion. 2 % lidocaine was administered subcutaneously for local anesthesia. Under ultrasound guidance, a 5-Thai thoracentesis needle/catheter system was advanced into the right posterior lower pleural fluid collection. 1550 ml of clear yellow colored fluid was drained. The catheter was removed, and a sterile dressing was applied. The patient tolerated the procedure well. A chest x-ray was ordered. IMPRESSION: Successful ultrasound guided thoracentesis of right pleural effusion. Surgical Findings: None Complications Complications: No
--- NOTE | 2024-08-23 11:03 | RAD_ITS ---
EXAM: CHEST INSP/EXP 2 VIEW CLINICAL HISTORY: Status post right thoracentesis. COMPARISON: Comparison is made with prior study dated August 16, 2024. TECHNIQUE: Inspiration expiration views were obtained. FINDINGS: No evidence of pneumothorax in the immediate post right thoracentesis. Residual bilateral pleural-parenchymal changes seen. RAD/Chest Insp/Exp 2 View IMPRESSION: No evidence of pneumothorax following the right thoracentesis. Reading Location: [facility]
== END | disposition home or self-care (01) ==
LOC: US 10:26
PROVIDERS: PCP Family Medicine; Referring Provider Internal Medicine Hematology & Oncology; Visit Provider Internal Medicine Hematology & Oncology
DX: J90 Pleural effusion, not elsewhere classified (principal)
CPT/HCPCS: 32555; 71046

== ENCOUNTER → 2024-08-30 | Outpatient (CLI) | payer MEDICARE, OTHER, SELFPAY ==
[2024-08-30 12:04] VITALS: BP 131/76; PULSE 108; RESP 18; TEMP 36.8; O2SAT 94
[2024-08-30] MEDS: Lidocaine 2% (20 ml mdv) 20 ML Vial INFILT (12:08)
[2024-08-30 12:14] VITALS: BP 124/75; PULSE 105; RESP 16; O2SAT 95
--- NOTE | 2024-08-30 12:15 | RAD_ITS ---
EXAM: CHEST INSP/EXP 2 VIEW COMPARISON: Comparison is made with prior study dated August 23, 2024. TECHNIQUE: Inspiration expiration views following right thoracentesis. FINDINGS: No evidence of pneumothorax on the immediate post right thoracentesis. Mild bilateral pleural-parenchymal changes. RAD/Chest Insp/Exp 2 View IMPRESSION: No evidence of pneumothorax. Reading Location: [id number]
[2024-08-30 12:24] VITALS: BP 127/74; PULSE 107; RESP 16; O2SAT 96
--- NOTE | 2024-08-30 12:31 | OP.PCM_ITS ---
Problems Associated Problem List Diagnoses (1) Pleural effusion, right: Multi Select Codes Radiology Radiology US Procedures: 50079 Thoracentesis Operative Report (Standard) Operative Information Date of Procedure: 08/30/24 Pre-Operative Diagnosis: Malignant pleural effusion Post-Operative Diagnosis: Malignant pleural effusion Surgery/Procedure Performed: Ultrasound-guided thoracentesis milled rice broker: No Type of Anesthesia: Local Procedure Start Time: 12:00 Procedure Stop Time: 12:14 Select all DRAINS/GRAFTS/IMPLANTS that apply: None Estimated Blood Loss: 0 Specimen collected: No Description of surgery: PROCEDURE: Ultrasound Guided Thoracentesis ORDERING PROVIDER: Dr. Albright INDICATION: Female, 69 years old. Pleural effusion. PROVIDER: LUPIS Mitchell PROCEDURE: The risks, benefits, and alternatives to the procedure were explained to the patient. The specific risks of bleeding, infection, and pneumothorax requiring chest tube insertion were discussed and accepted. Written informed consent was obtained. The patient was placed in the sitting, upright position. Ultrasonographic evaluation of the bilateral lower pleural spaces was carried out. An adequate pocket was identified in the right posterior lower pleural space. The overlying skin was prepped with chlorhexidine and draped in sterile fashion. 2 % lidocaine was administered subcutaneously for local anesthesia. Under ultrasound guidance, a 5-Bengali thoracentesis needle/catheter system was advanced into the lower right posterior pleural fluid collection. 1520 ml of clear yellow colored fluid was drained. The catheter was removed, and a sterile dressing was applied. The patient tolerated the procedure well. A chest x-ray was ordered. No evidence of pneumothorax. IMPRESSION: Successful ultrasound guided thoracentesis of right pleural effusion. Surgical Findings: None Complications Complications: No
[2024-08-30 12:50] VITALS: BP 131/81; PULSE 105; RESP 16; O2SAT 96
== END | disposition home or self-care (01) ==
LOC: US 11:39
PROVIDERS: PCP Family Medicine; Referring Provider Internal Medicine Hematology & Oncology; Visit Provider Internal Medicine Hematology & Oncology
DX: J90 Pleural effusion, not elsewhere classified (principal)
CPT/HCPCS: 32555; 71046

== ENCOUNTER → 2024-09-06 | Outpatient (CLI) | payer MEDICARE, OTHER, SELFPAY ==
--- NOTE | 2024-09-06 09:17 | US_ITS ---
PROCEDURE: Ultrasound-guided right thoracentesis. REASON FOR EXAM: Right pleural effusion. TECHNIQUE: The risks, benefits, and alternatives to the procedure were explained to the patient. The specific risks of bleeding, infection, and pneumothorax requiring chest tube insertion were discussed and accepted. Written informed consent was obtained. Ultrasonographic evaluation of the lower pleural space was carried out. An adequate pocket was identified. The patient was placed in the sitting, upright position. The overlying skin was prepped and draped in sterile fashion. 1% lidocaine was administered subcutaneously for local anesthesia. Under ultrasound guidance, a 5 Faroese thoracentesis needle/catheter system was advanced into the right posterior lower pleural fluid collection. Approximately 1550 mL of jimmie colored fluid was drained. The catheter was removed, and a sterile dressing was applied. The patient tolerated the procedure well. A chest x-ray was ordered. COMPARISON: Comparison is made with prior study dated August 30, 2024. US/Thoracentesis W US IMPRESSION: Successful ultrasound-guided right thoracentesis. The patient tolerated the procedure well. Reading Location: [facility]
[2024-09-06 09:45] VITALS: BP 114/73; PULSE 100; RESP 18; TEMP 36.6; O2SAT 93
--- NOTE | 2024-09-06 09:45 | RAD_ITS ---
PROCEDURE: CHEST INSP/EXP 2 VIEW REASON FOR EXAM: Status post right thoracentesis. TECHNIQUE: AP inspiration expiration views were obtained. COMPARISON: Comparison is made with prior study dated August 30, 1999 25. FINDINGS: The cardiothymic contour is normal. No evidence of pneumothorax following the thoracentesis. Residual bilateral pleural-parenchymal changes. Bowel gas pattern is normal. No evidence of bowel obstruction or free air. RAD/Chest Insp/Exp 2 View IMPRESSION: No evidence of pneumothorax following the right thoracentesis. Reading Location: [id number]
[2024-09-06] MEDS: Lidocaine 2% (20 ml mdv) 20 ML Vial INFILT (09:55)
[2024-09-06 09:57] VITALS: BP 118/73; PULSE 98; RESP 18; O2SAT 96
[2024-09-06 10:06] VITALS: BP 116/72; PULSE 99; RESP 18; TEMP 36.2; O2SAT 96
--- NOTE | 2024-09-06 10:18 | OP.PCM_ITS ---
Problems Associated Problem List Diagnoses (1) Pleural effusion, right: Multi Select Codes Radiology Radiology US Procedures: [id number] Thoracentesis Operative Report (Standard) Operative Information Date of Procedure: 09/06/24 Pre-Operative Diagnosis: Pleural effusion Post-Operative Diagnosis: Pleural effusion Surgery/Procedure Performed: Ultrasound-guided thoracentesis physical security engineer: No Type of Anesthesia: Local Procedure Start Time: 09:50 Procedure Stop Time: 10:07 Select all DRAINS/GRAFTS/IMPLANTS that apply: None Estimated Blood Loss: 0 Specimen collected: No Description of surgery: PROCEDURE: Ultrasound Guided Thoracentesis ORDERING PROVIDER: Dr. Albright INDICATION: Female, 69 years old. Pleural effusion. PROVIDER: Marah Schmidt SUPERVISOR HARD CANDY PROCEDURE: The risks, benefits, and alternatives to the procedure were explained to the patient. The specific risks of bleeding, infection, and pneumothorax requiring chest tube insertion were discussed and accepted. Written informed consent was obtained. The patient was placed in the sitting, upright position. Ultrasonographic evaluation of the bilateral lower pleural spaces was carried out. An adequate pocket was identified in the right lower lobe. The overlying skin was prepped with chlorhexidine and draped in sterile fashion. 2 % lidocaine was administered subcutaneously for local anesthesia. Under ultrasound guidance, a 5-Citizen Of [place] thoracentesis needle/catheter system was advanced into the right posterior lower pleural fluid collection. 1310 ml of clear yellow colored fluid was drained. The catheter was removed, and a sterile dressing was applied. The patient tolerated the procedure well. A chest x-ray was ordered. IMPRESSION: Successful ultrasound guided thoracentesis of right pleural effusion. Surgical Findings: none Complications Complications: No
[2024-09-06 10:30] VITALS: BP 112/69; PULSE 96; RESP 18; O2SAT 96
== END | disposition home or self-care (01) ==
LOC: US 09:17
PROVIDERS: PCP Family Medicine; Referring Provider Internal Medicine Hematology & Oncology; Visit Provider Internal Medicine Hematology & Oncology
DX: J90 Pleural effusion, not elsewhere classified (principal)
CPT/HCPCS: 32555; 71046

== ENCOUNTER → 2024-09-13 | Outpatient (CLI) | payer MEDICARE, OTHER, SELFPAY ==
[2024-09-13 09:36] VITALS: BP 103/60; PULSE 100; RESP 18; O2SAT 97
[2024-09-13] MEDS: Lidocaine 2% (20 ml mdv) 20 ML Vial INFILT (09:42)
--- NOTE | 2024-09-13 09:45 | RAD_ITS ---
PROCEDURE: AP inspiration expiration views. REASON FOR EXAM: Status post right thoracentesis. TECHNIQUE: AP inspiration expiration views were obtained. COMPARISON: Comparison is made with prior study dated September 06, 2024. FINDINGS: No evidence of pneumothorax following the right thoracentesis. Residual bilateral pleural-parenchymal changes worse at the left lung base. RAD/Chest Insp/Exp 2 View IMPRESSION: Status post right thoracentesis. No evidence of pneumothorax. Reading Location: [facility]
[2024-09-13 09:46] VITALS: BP 90/57; PULSE 98; RESP 18; O2SAT 95
[2024-09-13 09:56] VITALS: BP 102/61; PULSE 100; RESP 18; O2SAT 96
[2024-09-13 09:58] VITALS: BP 98/56; PULSE 101; RESP 18; O2SAT 96
--- NOTE | 2024-09-13 10:02 | PCM.OPRPT ---
Problems Associated Problem List Diagnoses (1) Pleural effusion, right: Multi Select Codes Radiology Radiology US Procedures: [id number] Thoracentesis Operative Report (Standard) Operative Information Date of Procedure: 09/13/24 Pre-Operative Diagnosis: Pleural effusion Post-Operative Diagnosis: Pleural effusion Surgery/Procedure Performed: Ultrasound-guided thoracentesis payroll accounting specialist: No Type of Anesthesia: Local Procedure Start Time: 09:36 Procedure Stop Time: 09:58 Select all DRAINS/GRAFTS/IMPLANTS that apply: None Estimated Blood Loss: 0 Specimen collected: No Description of surgery: PROCEDURE: Ultrasound Guided Thoracentesis ORDERING PROVIDER: Dr. Albright INDICATION: Female, 69 years old. Pleural effusion. PROVIDER: LUPIS Mitchell PROCEDURE: The risks, benefits, and alternatives to the procedure were explained to the patient. The specific risks of bleeding, infection, and pneumothorax requiring chest tube insertion were discussed and accepted. Written informed consent was obtained. The patient was placed in the sitting, upright position. Ultrasonographic evaluation of the bilateral lower pleural spaces was carried out. An adequate pocket was identified in the right lower lobe. The overlying skin was prepped with chlorhexidine and draped in sterile fashion. 2 % lidocaine was administered subcutaneously for local anesthesia. Under ultrasound guidance, a 5-Pashto thoracentesis needle/catheter system was advanced into the right posterior lower pleural fluid collection. 1500 ml of clear yellow colored fluid was drained. The catheter was removed, and a sterile dressing was applied. The patient tolerated the procedure well. A chest x-ray was ordered. No evidence of pneumothorax. IMPRESSION: Successful ultrasound guided thoracentesis of right pleural effusion. Surgical Findings: None Complications Complications: No
[2024-09-13 10:30] VITALS: BP 102/67; PULSE 100; RESP 18; O2SAT 95
== END | disposition home or self-care (01) ==
LOC: US 09:19
PROVIDERS: PCP Family Medicine; Referring Provider Internal Medicine Hematology & Oncology; Visit Provider Internal Medicine Hematology & Oncology
DX: C78.2 Secondary malignant neoplasm of pleura (principal); J91.0 Malignant pleural effusion; C50.911 Malignant neoplasm of unspecified site of right female breast
CPT/HCPCS: 32555; 71046

== ENCOUNTER 2024-09-20 10:20 | Outpatient (CLI) | payer MEDICARE, OTHER, SELFPAY ==
[2024-09-20 10:50] VITALS: BP 116/80; PULSE 111; RESP 20; TEMP 36.6; O2SAT 93
[2024-09-20] MEDS: Lidocaine 2% (20 ml mdv) 20 ML Vial INFILT (10:55)
[2024-09-20 10:58] VITALS: BP 106/67; PULSE 109; RESP 20; O2SAT 92
[2024-09-20 11:00] VITALS: BP 113/69; PULSE 107; RESP 20; O2SAT 92
[2024-09-20 11:07] VITALS: BP 108/75; PULSE 114; RESP 24; O2SAT 91
--- NOTE | 2024-09-20 11:15 | RAD_ITS ---
EXAM: XR Chest, 2 Views CLINICAL INDICATION: TECHNIQUE: AP view of the chest within and without inspiration. COMPARISON: No relevant prior studies available. FINDINGS: LUNGS AND PLEURAL SPACES: Bibasilar atelectasis or pneumonia. Mild pulmonary congestion. Bilateral pleural effusions. No pneumothorax. HEART: Unremarkable. No cardiomegaly. MEDIASTINUM: Unremarkable. Normal mediastinal contour. BONES/JOINTS: Unremarkable. No acute fracture. RAD/Chest Insp/Exp 2 View IMPRESSION: 1. No pneumothorax. 2. Bibasilar atelectasis or pneumonia. 3. Mild pulmonary congestion. 4. Bilateral pleural effusions. Reading Location: [facility]
[2024-09-20 11:19] VITALS: BP 113/73; PULSE 104; RESP 20; O2SAT 94
--- NOTE | 2024-09-20 11:22 | OP.PCM_ITS ---
Problems Associated Problem List Diagnoses (1) Bilateral pleural effusion: Multi Select Codes Radiology Radiology US Procedures: 15060 Thoracentesis Operative Report (Standard) Operative Information Date of Procedure: 09/20/24 Pre-Operative Diagnosis: Pleural effusion Post-Operative Diagnosis: Pleural effusion Surgery/Procedure Performed: Ultrasound-guided thoracentesis occupational health nurse manager: No Type of Anesthesia: Local Procedure Start Time: 10:44 Procedure Stop Time: 11:03 Select all DRAINS/GRAFTS/IMPLANTS that apply: None Estimated Blood Loss: 0 Specimen collected: No Description of surgery: PROCEDURE: Ultrasound Guided Thoracentesis ORDERING PROVIDER: Dr. Albright INDICATION: Female, 69 years old. Pleural effusion. PROVIDER: Marah Schmidt CNP PROCEDURE: The risks, benefits, and alternatives to the procedure were explained to the patient. The specific risks of bleeding, infection, and pneumothorax requiring chest tube insertion were discussed and accepted. Written informed consent was obtained. The patient was placed in the sitting, upright position. Ultrasonographic evaluation of the bilateral lower pleural spaces was carried out. An adequate pocket was identified in the right. The overlying skin was prepped with chlorhexidine and draped in sterile fashion. 2 % lidocaine was administered subcutaneously for local anesthesia. Under ultrasound guidance, a 5-Latvian thoracentesis needle/catheter system was advanced into the right posterior lower pleural fluid collection. 1350 ml of red colored fluid was drained. The catheter was removed, and a sterile dressing was applied. The patient tolerated the procedure well. A chest x-ray was ordered. IMPRESSION: Successful ultrasound guided thoracentesis of right pleural effusion. Surgical Findings: None Complications Complications: No
== END 2024-09-20 23:59 | disposition home or self-care (01) ==
LOC: US 10:21
PROVIDERS: PCP Family Medicine; Referring Provider Internal Medicine Hematology & Oncology; Visit Provider Internal Medicine Hematology & Oncology
DX: J90 Pleural effusion, not elsewhere classified (principal)
CPT/HCPCS: 32555; 71046

== ENCOUNTER → 2024-09-27 | Outpatient (CLI) | payer MEDICARE, OTHER, SELFPAY ==
--- NOTE | 2024-09-27 10:11 | US_ITS ---
PROCEDURE: THORACENTESIS W US REASON FOR EXAM: MALGINANT PE TECHNIQUE: The procedure as well as the benefits and possible complications including infection, bleeding and pneumothorax were explained to the patient. Informed consent was obtained. The patient was in the sitting position. The overlying skin was prepped and draped in the usual sterile fashion. Following local anesthetic application, a 5 Persian drainage catheter was placed into the right pleural space. A total of 1640 blood-tinged fluid was aspirated. The patient tolerated the procedure well. Inspiration expiration chest views will be obtained. COMPARISON: Comparison is made with prior study dated September 06, 2024. FINDINGS: Successful removal of 1640 mL of blood-tinged fluid from the right pleural space. US/Thoracentesis W US IMPRESSION: Successful right ultrasound-guided thoracentesis. The patient tolerated the procedure well. No immediate complication is seen. PA inspiration expiration views will be performed. Reading Location: [place] [address]
[2024-09-27 10:32] VITALS: BP 117/75; PULSE 105; RESP 18; TEMP 36.2; O2SAT 94
[2024-09-27] MEDS: Lidocaine 2% (20 ml mdv) 20 ML Vial INFILT (10:43)
[2024-09-27 10:45] VITALS: BP 97/59; PULSE 104; RESP 18; O2SAT 94
[2024-09-27 10:55] VITALS: BP 105/62; PULSE 105; RESP 18; TEMP 36.1; O2SAT 94
--- NOTE | 2024-09-27 11:05 | RAD_ITS ---
PROCEDURE: CHEST INSP/EXP 2 VIEW N/A REASON FOR EXAM: POST THORA TECHNIQUE: AP portable upright inspiratory and expiratory views of the chest, performed post thoracentesis. COMPARISON: Chest x-ray of 09/20/2024 RAD/Chest Insp/Exp 2 View IMPRESSION: A kjjqh-[id number] right pleural effusion is slightly diminished since the aureliano or study of 09/20/2024. a small left pleural effusion appears unchanged. No evidence pulmonary edema. No new or worsened pneumonic process is seen. The cardiomediastinal silhouette is stable, without evidence of cardiomegaly. Reading Location: [id number]
--- NOTE | 2024-09-27 15:47 | CASEMGMT ---
Outpatient Radiology Refrigerator Room Clerk Date: 09/27/24 Date: 1030 Interaction: Sw presented to outpatient radiology and met with patient prior to her scheduled radiology appointment. Patient was accompanied by her son, Kaleb. Sw introduced self to patient and explained reason for sw stopping to talk with her on this date. Patient identifies that she is able to do all daily tasks, but although she is able to cook and prepare meals for herself, she does not do it. Patient able to identify that a meal service would be helpful for her, even if they were to assist with 2-3 dinners a week. Sw stated that this is something can be looked into. Patient then went to her appointment, and sw continued conversation with patient's son. Will expresses several immediate concerns for patient: patient's mental health- specifically to anxiety and feeling overwhelmed. Patient has expressed to Will that she is worried about the future and she will ruminate on things and then those thoughts will start to cause a lot of panic to patient. Will states that patient gets extremely nervous prior to doctor appointments, to the point where she is visibly shaking. Per report patient is prescribed Ativan and is prescribed to take one pill every morning, and then PRN as needed throughout the day. Will does not believe that patient takes the Ativan regularly, if at all. Will states that patient is not active as her disease makes her tired and she does not have an appetite. Patient has some identified supports from friends and spiritism, however family support is limited to Kaleb and his sister who resides in [place] and is not able to help much. Will also states that he is not sure what other resources are available to help- he lives an hour away and it is not always available at the drop of a dime to assist patient aside from Mondays when he brings her to appointments and assists with errands, and when he comes to be with her. Sw asked if Palliative care has ever been presented to patient as a resource. Will states that he is not sure if that has been discussed. Will states that the projection of patient's disease is unclear, and that too causes a lot of anxiety and fear to patient. Will states that at one point in time he had a list of home aides/ assistance, however it has been some time since he referenced it and is not sure what services are covered and what patient is eligible for. Sw offered for sw and case management to meet with patient and Will at future appointments. Will stated that would be especially welcomed, and also stated that if someone had questions or needed more information they are welcome to call him. Assessment: Patient was receptive to meeting with sw, answered questions asked but did not elaborate. Patient presents with calm demeanor and open to receiving help. Patient's son expressed more concerns and is also receptive to all the help they are able to put in place for patient. Plan: Sw forwarded information on to case management, and will follow up as needed. Santiago Meyer, PRESS WASHER, TAMPING MACHINE OPERATOR
== END | disposition home or self-care (01) ==
LOC: US 10:10
PROVIDERS: PCP Family Medicine; Referring Provider Internal Medicine Hematology & Oncology; Visit Provider Internal Medicine Hematology & Oncology
DX: J90 Pleural effusion, not elsewhere classified (principal)
CPT/HCPCS: 32555; 71046

== ENCOUNTER → 2024-09-30 | Outpatient (CLI) | payer MEDICARE, OTHER, SELFPAY ==
--- NOTE | 2024-09-30 10:19 | US_ITS ---
PROCEDURE: CHEST REASON FOR EXAM: MALIGNANT PLEURAL EFFUSION PROCEDURE: Imaging of the left pleural space was performed for thoracentesis. Small left pleural effusion. Not enough for safe thoracentesis. US/Chest IMPRESSION: Not enough fluid for safe thoracentesis. Reading Location: [place] [address]
--- NOTE | 2024-09-30 11:11 | PN_ITS ---
Progress Note Mrs. Robles presents to the radiology department today 09/30/2024 for an ultrasound-guided left-sided thoracentesis. She had a routine right-sided t horacentesis on 09/27/[address] Bauman. A left-sided pleural effusion was identified at that time. On today's ultrasonographic evaluation of the left pleural space, there was only a small amount of fluid present, limiting my ability to safely perform a left- sided thoracentesis. She is scheduled to return on 10/04/2024 for her routine drainage. The left side can be reevaluated at this time.
== END | disposition home or self-care (01) ==
LOC: US 10:18
PROVIDERS: PCP Family Medicine; Referring Provider Internal Medicine Hematology & Oncology; Visit Provider Internal Medicine Hematology & Oncology
DX: J90 Pleural effusion, not elsewhere classified (principal)
CPT/HCPCS: 76604

== ENCOUNTER → 2024-10-04 | Outpatient (CLI) | payer MEDICARE, OTHER, SELFPAY ==
--- NOTE | 2024-10-04 10:14 | US_ITS ---
EXAM: Ultrasound-guided right thoracentesis. CLINICAL HISTORY: Recurrent malignant pleural effusion in patient with metastatic breast cancer. COMPARISON: September 27, 2024. TECHNIQUE: See below. FINDINGS: Informed consent was obtained. Direct ultrasound guidance, aseptic technique, and local anesthesia were utilized. The right pleural space was entered uneventfully using a 7 Montserratian sheath needle. Subsequently, total of 1750 cc of blood-tinged pleural fluid was removed and the catheter discontinued. Patient tolerated the procedure well and was sent home immediately following viewing of postoperative chest x-ray. US/Thoracentesis W US IMPRESSION: Uneventful repeat ultrasound-guided therapeutic thoracentesis. Given the frequ ency of these interventions, consideration may be made for placement of a PleurX catheter; I would be glad to discuss this direct ly with you if desired. Reading Location: [place] [address]
--- NOTE | 2024-10-04 10:45 | FLU_PTH ---
PATIENT: POLI MORENO LOC: [facility]#:[id number] AGE/SX: 69/F ROOM: RE10/04/[address]: Dr. John Albright DO : 1955 BED: DIS: 10/04/2024 SPEC #: [id number] RECD: 10/04/24 11:11 STATUS: KAMAR REAlexandra #: [id number] ALINA: 10/04/24 10:[address]: John Albright DEPT: CYTOLOGY RECD BY: Kiah Parikh ENTERED: 10/04/24 13:14 SP TYPE: Fluid OTHR DR: Dr. Elpidio Michaud MD Tissues: THORACIC FLUID Procedures: Special Stain Group II Surgery Specimen Level IV Cytospin Fluid HEADER OPERATION: Thoracentesis fluid PRE-OP DIAGNOSIS: Pleural effusion TISSUE SUBMITTED: A- Thoracentesis fluid DIAGNOSIS CYTOLOGY Pleural fluid, thoracentesis: * Atypia of undetermined significance - see comment. COMMENT Satisfactory for evaluation. There are a few clusters of atypical cells in a background of mesothelial cells and blood. The cell block is predominantly blood. CYTOLOGY STUDY Slides are reviewed. CYTOLOGY GROSS A. Received is 90 ml of red-cloudy fluid labeled with the patient's name and and designated per the requisition as Thoracentesis fluid. Submitted for cytology. 10/04/2024 CPT: 33551 ADDENDUM ADDENDUM ADDENDUM ADDENDUM ADDENDUM ADDENDUM ADDENDUM ADDENDUM ADDENDUM ADDENDUM ADDENDUM ADDENDUM ADDENDUM 10/08/2024 08:56 ADDENDUM 10/08/2024 08:56 ADDENDUM 10/08/2024 08:56 ADDENDUM 10/08/2024 08:56 ADDENDUM 10/08/2024 08:56 This addendum is added to incorporate an outside pathology consultation report. The case was examined at [facility] by Dr. Alex (#[id number]) and the following diagnosis was rendered. HER2 SCORE: NEGATIVE HER2 / CEP17 RATIO: 1.1 HER2 COPY NUMBER / CELL: 4.0 Please see complete above mentioned consultation report in EMR
[2024-10-04] MEDS: Lidocaine 2% (20 ml mdv) 20 ML Vial INFILT (11:00)
--- NOTE | 2024-10-04 11:15 | RAD_ITS ---
EXAM: XR Chest, 1 View CLINICAL INDICATION: POST THORACENTESIS TECHNIQUE: Frontal view of the chest. COMPARISON: XR Chest dated 09/27/2024 FINDINGS: LUNGS AND PLEURAL SPACES: Right basilar atelectasis or pneumonia. Bilateral pleural effusions, unchanged. No pneumothorax. HEART: Unremarkable. No cardiomegaly. MEDIASTINUM: Unremarkable. Normal mediastinal contour. BONES/JOINTS: Unremarkable. No acute fracture. RAD/Chest Insp/Exp 2 View IMPRESSION: 1. No pneumothorax. 2. Right basilar atelectasis or pneumonia. 3. Bilateral pleural effusions, unchanged. Reading Location[facility]
[2024-10-04 11:29] VITALS: BP 129/72; PULSE 114; RESP 18; O2SAT 93
[2024-10-04 11:30] VITALS: BP 131/83; PULSE 108; RESP 18; O2SAT 97
[2024-10-04 11:32] VITALS: BP 125/58; BP 126/84; PULSE 106; PULSE 112; RESP 18; RESP 97; O2SAT 96
== END | disposition home or self-care (01) ==
PROVIDERS: PCP Family Medicine; Referring Provider Internal Medicine Hematology & Oncology; Visit Provider Internal Medicine Hematology & Oncology
DX: J90 Pleural effusion, not elsewhere classified (principal)
CPT/HCPCS: 32555; 71046; 88108; 88305; 88313

== ENCOUNTER → 2024-10-11 | Outpatient (CLI) | payer MEDICARE, OTHER, SELFPAY ==
[2024-10-11 10:34] VITALS: BP 114/74; PULSE 112; RESP 18; TEMP 36.6; O2SAT 96
[2024-10-11] MEDS: Lidocaine 2% (20 ml mdv) 20 ML Vial INFILT (10:39)
[2024-10-11 10:42] VITALS: BP 84/62; PULSE 109; RESP 18; O2SAT 96
[2024-10-11 10:45] VITALS: BP 102/64; PULSE 109; RESP 18; O2SAT 95
--- NOTE | 2024-10-11 10:45 | RAD_ITS ---
EXAM: Inspiration expiration views. CLINICAL HISTORY: Status post right thoracentesis. COMPARISON: Comparison is made with prior study dated October 04, 2024. TECHNIQUE: Frontal AP inspiration expiration views were obtained following the right thoracentesis. FINDINGS: No evidence of pneumothorax. Mild residual pleural-parenchymal changes at the right lung base. RAD/Chest Insp/Exp 2 View IMPRESSION: No evidence of pneumothorax on the immediate post right paracentesis examinatio n. Residual pleural-parenchymal changes at the right lung base. Reading Location: [place] [address]
[2024-10-11 10:52] VITALS: BP 112/67; PULSE 107; RESP 20; O2SAT 96
[2024-10-11 10:56] VITALS: BP 115/71; PULSE 109; RESP 18; O2SAT 97
--- NOTE | 2024-10-11 11:02 | PCM.OPRPT ---
Problems Associated Problem List Diagnoses (1) Pleural effusion, right: Multi Select Codes Radiology Radiology US Procedures: 10262 Thoracentesis Operative Report (Standard) Operative Information Date of Procedure: 10/11/24 Pre-Operative Diagnosis: Pleural effusion Post-Operative Diagnosis: Pleural effusion Surgery/Procedure Performed: Ultrasound-guided thoracentesis environmental services coordinator: No Type of Anesthesia: Local Procedure Start Time: 10:35 Procedure Stop Time: 10:58 Select all DRAINS/GRAFTS/IMPLANTS that apply: None Estimated Blood Loss: 0 Specimen collected: No Description of surgery: PROCEDURE: Ultrasound Guided Thoracentesis ORDERING PROVIDER: Dr. Albright INDICATION: Female, 69 years old. Pleural effusion. PROVIDER: LUPIS Mitchell PROCEDURE: The risks, benefits, and alternatives to the procedure were explained to the patient. The specific risks of bleeding, infection, and pneumothorax requiring chest tube insertion were discussed and accepted. Written informed consent was obtained. The patient was placed in the sitting, upright position. Ultrasonographic evaluation of the bilateral lower pleural spaces was carried out. An adequate pocket was identified in the right lower pleural space. The overlying skin was prepped with chlorhexidine and draped in sterile fashion. 2 % lidocaine was administered subcutaneously for local anesthesia. Under ultrasound guidance, a 5-Tongan thoracentesis needle/catheter system was advanced into the right posterior lower pleural fluid collection. 1400 ml of clear jimmie colored fluid was drained. The catheter was removed, and a sterile dressing was applied. The patient tolerated the procedure well. A chest x-ray was ordered. There was no evidence of pneumothorax. The procedure was proctored by interventional radiologist Dr. Bauman. IMPRESSION: Successful ultrasound guided thoracentesis of right pleural effusion. Surgical Findings: None Complications Complications: No
== END | disposition home or self-care (01) ==
PROVIDERS: PCP Family Medicine; Referring Provider Internal Medicine Hematology & Oncology; Visit Provider Internal Medicine Hematology & Oncology
DX: J90 Pleural effusion, not elsewhere classified (principal)
CPT/HCPCS: 32555; 71046

== ENCOUNTER → 2024-10-19 | Outpatient (CLI) | payer MEDICARE, OTHER, SELFPAY ==
[2024-10-19] VITALS (8 sets, daily range): BP systolic 102–126; BP diastolic 63–77; PULSE 95–99; RESP 16–18; TEMP 36; O2SAT 96–97
--- NOTE | 2024-10-19 11:45 | US_ITS ---
EXAM: ULTRASOUND-GUIDED THORACENTESIS CLINICAL HISTORY: RIGHT-SIDED MALIGNANT PLEURAL EFFUSION. COMPARISON: MOST RECENT STUDY DATED 10/11/2024. TECHNIQUE: Informed consent was obtained. The patient was prepped and draped in the usual sterile fashion. Lidocaine 2% was utilized for local anesthesia. A 5 F, 7 cm in length [id number] Centesis Catheter was inserted into the fluid collection. Amount of fluid drained: 1470 mL. Color of fluid: Clear yellow. A post thoracentesis chest radiograph will be obtained. FINDINGS: On loculated right pleural effusion. US/Thoracentesis W US IMPRESSION: SUCCESSFUL RIGHT THORACENTESIS. PATIENT TOLERATED THE PROCEDURE WELL. THANK YOU FOR THIS REFERRAL. Reading Location: [place] [address]
[2024-10-19] MEDS: Lidocaine 2% (20 ml mdv) 20 ML Vial INFILT (12:15)
--- NOTE | 2024-10-19 12:32 | RAD_ITS ---
EXAM: Portable upright chest radiograph, two views CLINICAL HISTORY: Status post right thoracentesis COMPARISON: 10/11/2024 PA and lateral TECHNIQUE: 2 AP upright chest radiographs were obtained. FINDINGS: The cardiomediastinal silhouette is similar. Osseous structures appear intact. No pulmonary vascular congestion or pneumothorax. Left lung is clear. There is slightly improved right basilar pleural-parenchymal opacity. RAD/Chest Insp/Exp 2 View IMPRESSION: No postprocedure pneumothorax demonstrated. Slightly improved right basilar pleural-parenchymal opacity, which may be due t o a combination of airspace consolidation/small right pleural effusion. Recommend continued radiologic follow-up to document r esolution. Reading Location: [facility]
== END | disposition home or self-care (01) ==
PROVIDERS: PCP Family Medicine; Referring Provider Internal Medicine Hematology & Oncology; Visit Provider Internal Medicine Hematology & Oncology
DX: J90 Pleural effusion, not elsewhere classified (principal)
CPT/HCPCS: 32555; 71046

== ENCOUNTER → 2024-10-25 | Outpatient (CLI) | payer MEDICARE, OTHER, SELFPAY ==
[2024-10-25] VITALS (7 sets, daily range): BP systolic 94–126; BP diastolic 63–75; PULSE 94–103; RESP 16–18; TEMP 36.6; O2SAT 94–97
--- NOTE | 2024-10-25 09:58 | PCM.PN.BLA ---
Progress Note Laboratory Tests 03/13/24 05:30 WBC 6.9 RBC 4.27 Hgb 13.5
--- NOTE | 2024-10-25 10:18 | US_ITS ---
EXAM: Ultrasound-guided thoracentesis. CLINICAL HISTORY: Right pleural effusion. COMPARISON: Comparison is made with prior study dated October 19, 2024. TECHNIQUE: The procedure as well as the benefits and possible complications including infection, bleeding and pneumothorax were explained to the patient. Informed consent was obtained. The overlying skin was prepped and draped in the usual sterile fashion. Following local anesthetic application and under direct sonographic guidance, a 5 Beninese catheter was placed into the right pleural cavity. 1300 mL of dark jimmie colored fluid was aspirated. The patient tolerated the procedure well. FINDINGS: Successful right thoracentesis. US/Thoracentesis W US IMPRESSION: Successful right thoracentesis with removal of 1300 mL of dark jimmie colored fl uid. The patient tolerated the procedure well. No immediate complication following the procedure was noted. Reading Location: [place] [address]
[2024-10-25] MEDS: Lidocaine 2% (20 ml mdv) 20 ML Vial INFILT (10:49)
--- NOTE | 2024-10-25 11:00 | RAD_ITS ---
EXAM: AP inspiration expiration views following thoracentesis. CLINICAL HISTORY: Status post right thoracentesis. COMPARISON: Comparison is made with prior study dated October 19, 2024. TECHNIQUE: AP inspiration expiration views were obtained. FINDINGS: No evidence of pneumothorax. Mild degree of residual pleural-parenchymal changes seen at the right lung base. RAD/Chest Insp/Exp 2 View IMPRESSION: No evidence of pneumothorax following the right thoracentesis. Residual right pleural-parenchymal changes. Reading Location: [facility]
== END | disposition home or self-care (01) ==
LOC: US 10:15
PROVIDERS: PCP Family Medicine; Referring Provider Internal Medicine Hematology & Oncology; Visit Provider Internal Medicine Hematology & Oncology
DX: J90 Pleural effusion, not elsewhere classified (principal)
CPT/HCPCS: 32555; 71046

== ENCOUNTER → 2024-11-01 | Outpatient (CLI) | payer MEDICARE, OTHER, SELFPAY ==
[2024-11-01] VITALS (8 sets, daily range): BP systolic 88–119; BP diastolic 51–72; PULSE 97–103; RESP 16; O2SAT 96–98
--- NOTE | 2024-11-01 07:21 | RAD_ITS ---
EXAM: Chest PA inspiration expiration. CLINICAL HISTORY: Status post right thoracentesis. COMPARISON: Comparison is made with prior study dated October 25, 2024. TECHNIQUE: AP inspiration expiration views were obtained following the right thoracentesis. FINDINGS: There is no evidence of pneumothorax. Mild residual pleural-parenchymal changes at the right lung base. RAD/Chest Insp/Exp 2 View IMPRESSION: Status post right thoracentesis. No evidence of pneumothorax. Mild residual pleural-parenchymal changes at the right lung base. Reading Location: [place] [address]
[2024-11-01] MEDS: Lidocaine 2% (20 ml mdv) 20 ML Vial INFILT (10:40)
--- NOTE | 2024-11-01 11:31 | OP.PCM_ITS ---
Problems Associated Problem List Diagnoses (1) Pleural effusion, right: Multi Select Codes Radiology Radiology US Procedures: 09662 Thoracentesis Operative Report (Standard) Operative Information Date of Procedure: 11/01/24 Pre-Operative Diagnosis: Pleural effusion Post-Operative Diagnosis: Pleural effusion Surgery/Procedure Performed: Ultrasound-guided thoracentesis carbon dioxide operator: No Type of Anesthesia: Local Procedure Start Time: 10:40 Procedure Stop Time: 11:00 Select all DRAINS/GRAFTS/IMPLANTS that apply: None Estimated Blood Loss: 0 Specimen collected: No Description of surgery: PROCEDURE: Ultrasound Guided Thoracentesis ORDERING PROVIDER: Dr. Albright INDICATION: Female, 69 years old. Pleural effusion. PROVIDER: LUPIS Mitchell PROCEDURE: The risks, benefits, and alternatives to the procedure were explained to the patient. The specific risks of bleeding, infection, and pneumothorax requiring chest tube insertion were discussed and accepted. Written informed consent was obtained. The patient was placed in the sitting, upright position. Ultrasonographic evaluation of the bilateral lower pleural spaces was carried out. An adequate pocket was identified in the right lower pleural space. The overlying skin was prepped with chlorhexidine and draped in sterile fashion. 2 % lidocaine was administered subcutaneously for local anesthesia. Under ultrasound guidance, a 5-Kazakh thoracentesis needle/catheter system was advanced into the right posterior lower pleural fluid collection. 1450 ml of clear yellow colored fluid was drained. The catheter was removed, and a sterile dressing was applied. The patient tolerated the procedure well. A chest x-ray was ordered. There was no evidence of pneumothorax. There were no immediate complications. The procedure was proctored by interventional radiologist Dr. Bauman. IMPRESSION: Successful ultrasound guided thoracentesis of right pleural effusion. Surgical Findings: None Complications Complications: No
== END | disposition home or self-care (01) ==
LOC: US 10:20
PROVIDERS: PCP Family Medicine; Referring Provider Internal Medicine Hematology & Oncology; Visit Provider Internal Medicine Hematology & Oncology
DX: J90 Pleural effusion, not elsewhere classified (principal)
CPT/HCPCS: 32555; 71046

== ENCOUNTER 2024-11-08 10:21 | Outpatient (CLI) | payer MEDICARE, OTHER, SELFPAY ==
--- NOTE | 2024-11-05 14:55 | NURSING ---
per nir gutierrez, at dr mason office, dr jose states umer can hold eliquis for [address] fay aware of this and is ok with 4 doses being held. this rn will inform pt that last dose of eliquis will be 11/06/24 am for thoracentesis on 11/08/24.
[2024-11-08] MEDS: Lidocaine 2% (20 ml mdv) 20 ML Vial INFILT (10:42)
--- NOTE | 2024-11-08 10:54 | RAD_ITS ---
PROCEDURE: CHEST INSP/EXP 2 VIEW ([id number]), 11/08/2024 REASON FOR EXAM: POST THORA TECHNIQUE: Portable AP views of the chest were obtained in inspiration and expiration. COMPARISON: 11/01/2024 FINDINGS: Heart: Unremarkable. Mediastinum: Unremarkable. Lungs/pleura: Decreased size of a now small RIGHT pleural effusion. Similar trace to small LEFT pleural effusion. Similar RIGHT basilar airspace disease. No visible pneumothorax. Bones: Demineralization. Lines and support devices: None. Other: Surgical clips project over the LEFT chest wall/axilla. RAD/Chest Insp/Exp 2 View IMPRESSION: 1. No visible pneumothorax following thoracentesis. Decreased size of a now sm all RIGHT pleural effusion. Similar trace to small LEFT pleural effusion. 2. Similar RIGHT basilar airspace disease which may reflect atelectasis/scarrin g or pneumonia given the appropriate clinical context. Clinical follow-up recommended. 3. Additional description as above. Reading Location: [id number]
[2024-11-08 11:08] VITALS: BP 123/73; PULSE 103; RESP 18; O2SAT 97
[2024-11-08 11:09] VITALS: BP 103/61; PULSE 103; RESP 18; O2SAT 95
== END 2024-11-08 23:59 | disposition home or self-care (01) ==
PROVIDERS: PCP Family Medicine; Referring Provider Internal Medicine Hematology & Oncology; Visit Provider Internal Medicine Hematology & Oncology
DX: J90 Pleural effusion, not elsewhere classified (principal)
CPT/HCPCS: 32555; 71046

== ENCOUNTER 2024-11-12 08:17 | Emergency (ER) | payer MEDICARE, OTHER, SELFPAY ==
[2024-11-12 08:18] VITALS: BP 123/87; PULSE 85; RESP 16; TEMP 36.6; O2SAT 93; BMI 25.2
--- NOTE | 2024-11-12 08:28 | ED.RN ---
PT CURRENTLY BEING TREATED FOR BREAST CA, GETS THORACENTESIS DONE WEEKLY D/T FLUID RETENTION. PT GETS THEM DONE WEEKLY ON MONDAYS, FEELS INCREASED SOB LIKE SHE COULD NOT WAIT UNTIL FRIDAY
[2024-11-12 08:38] VITALS: O2SAT 97
--- NOTE | 2024-11-12 08:38 | EKG12_ITS ---
Test Reason : GENERAL Blood Pressure : */* mmHG Vent. Rate : 71 BPM Atrial Rate : 71 BPM P-R Int : 150 ms QRS Dur : 64 ms QT Int : 390 ms P-R-T Axes : 33 9 25 degrees QTcB Int : 423 ms Normal sinus rhythm Normal ECG Confirmed by SOTO KELLEY, LEOBARDO ([id number]), editor managing newspaper SERGO COURTNEY ([id number]) on 11/15/2024 9:55:22 AM Referred By: Confirmed By: LEOBARDO VALERA MD
--- NOTE | 2024-11-12 08:48 | EX.ED.DYSGE1 ---
HPI History of Present Illness Chief Complaint: General Illness Narrative Narrative: Patient is a 69-year-old female who is presenting to the ER today with chief complaint of chronic shakiness, shortness of breath, mild nausea. Patient [id number] is at bedside. Patient lives at home. Patient has history of breast cancer. Patient is getting thoracentesis every Friday as an outpatient IR at [facility]. Patient did have a thoracentesis this past Friday, she has another one scheduled in 3 days. Patient thought her oxygen levels were low, her oxygen is 96% on room air. Patient is not tachypneic. Patient looks very comfortable. Patient has no headache or neck pain. No chest pain or chest tightness. Mild shortness of breath, little bit worse than her normal baseline. Patient [id number] states that she is a little unsteady, but chronically shaky. No change in mental status, no confusion. No edema. Patient does not look sick or toxic. 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 BOWEL RESECTION WITH ANASTOMOSIS LAPAROTOMY/RESECTION OF PELVIC MASS Arthritis Osteopenia Ovarian cancer Breast cancer, left breast Home Medications ?Medication ?Instructions ?Recorded ?Last Taken ?Type apixaban 5 mg tablet (Eliquis) 10 mg (2 x 5 mg) PO BID #68 tabs 03/14/24 Unknown Rx cinnamon bark 500 mg capsule 500 mg PO QDAY 09/01/24 Unknown History ginkgo biloba 40 mg tablet 40 mg PO TID 09/01/24 Unknown History glucosamine sulfate 1,000 mg tablet 1,000 mg PO QDAY 09/01/24 Unknown History lorazepam 0.5 mg tablet 0.5 mg PO 09/01/24 Unknown History multivitamin 1 tab PO QAM 09/01/24 Unknown History turmeric 400 mg capsule mg PO 09/01/24 Unknown History elacestrant 345 mg tablet (Orserdu) 345 mg PO QDAY 10/30/24 Unknown History linaclotide 145 mcg capsule mcg PO 10/30/24 Unknown History (Linzess) olanzapine 5 mg tablet 5 mg PO QHS 10/30/24 Unknown History prochlorperazine maleate 10 mg 10 mg PO Q6 PRN nausea/vomiting 10/30/24 Unknown History tablet Allergy/AdvReac Type Severity Reaction Status Date / Time acetaminophen (From Percocet) AdvReac Intermediate Nausea Verified 11/12/24 08:36 meperidine HCl (From Demerol) AdvReac Intermediate Nausea Verified 11/12/24 08:36 oxycodone (From Percocet) AdvReac Intermediate Nausea Verified 11/12/24 08:36 Family History Mother Skin cancer Pulmonary embolism Hypertension Father CVA (cerebral vascular accident) Surgical History History of lumpectomy History of resection of large bowel History of appendectomy History of total abdominal hysterectomy and bilateral salpingo-oophorectomy Social History Smoking Status: Never smoker second hand exposure: No alcohol intake: current alcohol intake frequency: a few times a month Alcohol type: wine substance use type: does not use caffeine: Yes what type of physical activity do you participate in: walking and running frequency: 5-6 times per week seatbelt use: always ROS ROS ED ROS Narrative REVIEW OF SYSTEMS: Unless otherwise stated in this report the patient's positive and negative responses for review of systems for constitutional, eyes, ENT, cardiovascular, respiratory, gastrointestinal, neurological, , musculoskeletal, and integument systems and related systems to the presenting problem are either stated in the history of present illness or were not pertinent or were negative for the symptoms and/or complaints related to the presenting medical problem. EXAM Physical Exam Narrative Exam Narrative: vital signs reviewed and patient is not hypoxic. General: The patient appears well and in no apparent distress. Patient is resting comfortably on cart. Not toxic, lethargic, or listless. Skin: Warm, dry, no pallor noted. There is no rash noted. Head: Normocephalic, atraumatic Eye: Normal conjunctiva, no drainage, EOMI. PERRL. Ears, Nose, Mouth, and Throat: oral mucosa is moist. Nares patent. Mouth without vesicles. Cardiovascular: Regular Rate and Rhythm, no murmurs, gallops, or rubs Respiratory: Patient is in no distress, no accessory muscle use, lungs are clear to auscultation, no wheezing, rales or rhonchi. However patient does have decreased breath sounds slightly to the right lower and middle lobe, compared to left. No crackles or rales. Back: non-tender, no CVA tenderness bilaterally to percussion. NO CTLS midline or paraspinal tenderness to palpation. GI: Soft, no tenderness to palpation, no masses appreciated. No rebound, guarding, or rigidity noted. Musculoskeletal: The patient has full range of motion of all extremities and joints with no difficulty. Patient has no motor, no sensory deficits. Neurological: A&O x4, normal speech, no focal neurological deficits. Psychiatric: Cooperative Const Vital Signs: 11/12/24 08:18 11/12/24 08:24 11/12/24 08:38 Temperature 97.8 F Temperature Source Oral Pulse Rate 85 Respiratory Rate 16 Respiratory Effort Short of Breath Blood Pressure 123/87 H Blood Pressure Mean 99 Pulse Ox 93 97 Oxygen Delivery Method Room Air Nasal Cannula Oxygen Flow Rate (L/min) 2 11/12/24 10:23 11/12/24 10:23 Temperature 97.6 F L Temperature Source Pulse Rate 72 72 Respiratory Rate 16 16 Respiratory Effort Blood Pressure 128/63 H 128/63 H Blood Pressure Mean 84 84 Pulse Ox 98 98 Oxygen Delivery Method Room Air Oxygen Flow Rate (L/min) MDM MDM MDM Narrative Medical decision making narrative: Patient seen and examined: Chest x-ray, IV fluids, lab tests Differential diagnosis includes but is not limited to: Pleural effusion, pneumonia, electrolyte abnormality, dehydration, PRESTON Relevant laboratory interpretation: Patient has no significant acute lab abnormalities Radiological studies: Chest x-ray does show pleural effusion, IMPRESSION: 1. Enlarging now small/moderate RIGHT pleural effusion with increased adjacent airspace disease which may reflect compressive atelectasis and/or pneumonia. Follow-up to radiographic resolution recommended. 2. Colonic stool burden appears low to moderate. 3. Additional description as above. Reevaluation: Patient feels better after IV fluids. Patient has not been hypoxic in the ER. Patient was placed on 2 L of nasal cannula for comfort. Social barriers to healthcare: There are no food insecurities, there is no issue with transportation, there are no insurance barriers Disposition: Patient has a thoracentesis scheduled for Friday. Patient has been having thoracentesis every Friday for pleural effusions. No acute indication to have acute thoracentesis done today, no acute reason for admission. Patient agrees. Patient walked to the bathroom back with no difficulty. Patient will continue follow-up with her oncologist and perform outpatient testing. Lab Data Attestation: I reviewed the patient's lab results. Labs: Laboratory Results - last 24 hr 11/12/24 08:52 WBC 5.4 RBC 4.08 L Hgb 13.6 Hct 40.4 MCV 99.0 MCH 33.3 H MCHC 33.7 RDW Std Deviation 45.0 H RDW Coeff of Michelle 12.4 Plt Count 210 MPV 9.5 Immature Gran % (Auto) 0.400 Neut % (Auto) 75.7 H Lymph % (Auto) 15.8 L [place] % (Auto) 6.8 Eos % (Auto) 0.7 Baso % (Auto) 0.6 Absolute Neuts (auto) 4.1 Absolute Lymphs (auto) 0.86 Nucleated RBC % 0 Sodium 139 Potassium 4.2 Chloride 108 Carbon Dioxide 22.7 Anion Gap 8 BUN 12 Creatinine 0.69 L Estim Creat Clear Calc 61.45 Est GFR (MDRD) Non-Af 93 BUN/Creatinine Ratio 17.4 Glucose 113 H Calcium 8.9 Magnesium 2.0 Radiography Diagnostic Testing: Clinical Impression(s) from Imaging Studies Acute Abdomen Series 11/12/24 08:58 IMPRESSION: 1. Enlarging now small/moderate RIGHT pleural effusion with increased adjacent airspace disease which may reflect compressive atelectasis and/or pneumonia. Follow-up to radiographic resolution recommended. 2. Colonic stool burden appears low to moderate. 3. Additional description as above. Reading Location: [facility] EKG Initial EKG: Attestation: I personally reviewed and interpreted this EKG as follows: (EKG interpretation. Normal sinus rhythm at 71 beats a minute. Normal axis deviation. No acute ST elevation, no acute ectopy. QTc of 423) Discharge Plan Triage Chief Complaint: General Illness ED Provider: Anastacio Jimenez Dx/Rx/DC Orders Clinical Impression: Dyspnea Instructions: ED Dyspnea Prescriptions: No Action lorazepam 0.5 mg tablet 0.5 mg PO Patient Comments: [NO ORIGINAL SIG] turmeric 400 mg capsule PO cinnamon bark 500 mg capsule 500 mg PO QDAY multivitamin Tablet 1 tab PO QAM glucosamine sulfate 1,000 mg tablet 1,000 mg PO QDAY Rx Instructions: administer with meals ginkgo biloba 40 mg tablet 40 mg PO TID Rx Instructions: give with meal/snack olanzapine 5 mg tablet 5 mg PO QHS prochlorperazine maleate 10 mg tablet 10 mg PO Q6 PRN (Reason: nausea/vomiting) Linzess 145 mcg capsule PO Orserdu 345 mg tablet 345 mg PO QDAY Rx Instructions: Swallow tablet(s) whole. Do not chew, crush, or split prior to swallowing. Do not take any tablets that are broken, cracked, or that look damaged. Eliquis 5 mg tablet 10 mg PO BID Qty: 68 0RF Rx Instructions: 2 tabs twice a day for a total of 13 doses starting tonight, then decrease the dose to 5 mg twice a day Primary Care Provider: Elpidio Michaud Referrals: Elpidio Michaud MD [Primary Care Provider] - Activity Restrictions/Additional Instructions: Follow-up with your PCP for any additional treatment as needed. Follow-up with your thoracentesis on Friday as planned. Use MiraLAX twice a day today, tomorrow and Friday if needed. Drink half a bottle of magnesium citrate today, if no significant relief, finish the bottle magnesium citrate today. Use 1 bottle of magnesium citrate tomorrow if needed. Use fleets enemas if needed. Use Tylenol Motrin if needed for abdominal cramping or pain. Print Language: Liberian Disposition Disposition: Home, Self Care Discharge Date/Time: 11/12/24 11:21
[2024-11-12] MEDS: 0.9% Normal Saline (1000mL) 1,000 ML 999 ML IV (08:49)
--- NOTE | 2024-11-12 08:58 | RAD_ITS ---
PROCEDURE: ACUTE ABDOMEN INC CHEST 11/12/2024 REASON FOR EXAM: CONSTIP AND SOB TECHNIQUE: A PA view of the chest was obtained in addition to AP views of the abdomen. COMPARISON: 11/08/2024 FINDINGS: Heart: Partially obscured, grossly similar. Mediastinum: Unremarkable. Lungs/pleura: Enlarging now [id number] RIGHT pleural effusion with disease increased adjacent airspace. no sizeable LEFT pleural effusion or visible pneumothorax. Similar probable granuloma in the RIGHT lung Lines and support devices: None. Other: Similar surgical clips projecting over the LEFT axilla/chest wall.. Surgical clips project over the lower abdomen/pelvis. No visible bowel dilatation. Demineralization. Thoracolumbar dextroscoliosis and lumbar spondylosis. Presumed pelvic phleboliths. Colonic stool burden appears low to moderate. RAD/Acute Abdomen Inc Chest IMPRESSION: 1. Enlarging now small/moderate RIGHT pleural effusion with increased adjacent airspace disease which may reflect compressive atelectasis and/or pneumonia. Follow-up to radiographic resolution recommended . 2. Colonic stool burden appears low to moderate. 3. Additional description as above. Reading Location: [id number]
[2024-11-12 08:59] LABS: Absolute Lymphocyte Count 0.86 X10^3/uL (0.83-4.51); Absolute Neutrophil Count 4.1 X10^3/uL (2.0-7.7); Basophil# 0.03 X10^3/uL; Basophil% 0.6 % (0-1); Eosinophil# 0.04 X10^3/uL; Eosinophils% 0.7 % (0-5); Hematocrit 40.4 % (37-47); Hemoglobin 13.6 g/dL (12.0-15.0); Lymphocyte # 0.86 X10^3/ul (0.83-4.51); Lymphocyte % 15.8 % (19-41); Mean Corp Hgb Conc 33.7 g/dL (32-36); Mean Corpuscular Hgb 33.3 pg (27.0-32.0); Mean Platelet Vol. 9.5 fl (6.2-12.0); Monocyte# 0.37 X10^3/uL; Monocyte% 6.8 % (0-10); NRBC Flagged by Analyzer 0 % (0-5); Neutrophil # 4.11 X10^3/uL (2.7-7.7); Neutrophil % 75.7 % (47-70); Platelet Count 210 K/mm3 (150-450); RBC Distribution Width CV 12.4 % (11.6-14.6); Red Blood Count 4.08 M/mm3 (4.2-5.4); White Blood Count 5.4 K/mm3 (4.4-11.0)
[2024-11-12 09:50] LABS: Anion Gap 8 (5-15); BUN 12 mg/dL (4-19); BUN/Creat Ratio 17.4 RATIO (10-20); Calcium,Total 8.9 mg/dL (7.6-11.0); Carbon Dioxide 22.7 mmol/L (21.0-32.0); Chloride 108 mmol/L (98-108); Creatinine, Serum 0.69 mg/dL (0.70-1.20); EST Glomerular Filtration Rate 93 (>60); Estimated Creatinine Clearance 61.45 ml/min (50-250); Glucose 113 mg/dL (70-99); Potassium 4.2 mmol/L (3.3-5.1); Sodium Level 139 mmol/L (133-145)
[2024-11-12 10:23] VITALS: BP 128/63; PULSE 72; RESP 16; TEMP 36.4; O2SAT 98
== END 2024-11-12 11:21 | disposition home or self-care (01) ==
PROVIDERS: Emergency Provider Emergency Medicine; PCP Family Medicine; Visit Provider Emergency Medicine
DX: R06.00 Dyspnea, unspecified (principal); J90 Pleural effusion, not elsewhere classified; R11.0 Nausea; R25.1 Tremor, unspecified; M85.80 Other specified disorders of bone density and structure, unspecified site; Z85.3 Personal history of malignant neoplasm of breast; Z85.43 Personal history of malignant neoplasm of ovary; Z86.711 Personal history of pulmonary embolism; Z79.01 Long term (current) use of anticoagulants; Z79.899 Other long term (current) drug therapy
CPT/HCPCS: 74022; 80048; 83735; 85025; 93005; 96360; 99283; A4216

== ENCOUNTER → 2024-11-15 | Outpatient (CLI) | payer MEDICARE, OTHER, SELFPAY ==
--- NOTE | 2024-11-08 11:02 | PCM.HOSP.N ---
Hospitalist Note PROCEDURE: Ultrasound Guided Thoracentesis ORDERING PROVIDER: Dr. Albright INDICATION: Female, 69 years old. Pleural effusion. PROVIDER: Ai Roldan D.O. PROCEDURE: The risks, benefits, and alternatives to the procedure were explained to the patient. The specific risks of bleeding, infection, and pneumothorax requiring chest tube insertion were discussed and accepted. Written informed consent was obtained and a time out was performed The patient was placed in the sitting, upright position. Ultrasonographic evaluation of the bilateral lower pleural spaces was carried out. An adequate pocket was identified in the right lower pleural space. The overlying skin was prepped with chlorhexidine and draped in sterile fashion. The area was prepped again with Betadine. 2 % lidocaine was administered subcutaneously for local anesthesia. Under ultrasound guidance, a 5-Haitian thoracentesis needle/catheter system was advanced into the right posterior lower pleural fluid collection. 1475 ml of clear yellow colored fluid was drained. The catheter was removed, and a sterile dressing was applied. The patient tolerated the procedure well. A chest x-ray was ordered. There was no evidence of pneumothorax. There were no immediate complications. The procedure was supervised by Johnson Cook M.D. Procedures Hospitalists Procedures: 17739 Aspirate Pleura w/Imaging
--- NOTE | 2024-11-15 10:13 | US_ITS ---
EXAM: Ultrasound-guided right-sided thoracentesis CLINICAL HISTORY: Recurrent pleural effusion COMPARISON: None. TECHNIQUE: Following informed consent, using standard sterile technique, a right thoracentesis was performed via a posterior approach. 2% lidocaine local anesthesia was followed by placement of a 5 Polish catheter into the right pleural fluid collection. Approximately 1.41 L of clear yellow fluid was successfully aspirated. No complication was encountered, and the patient left the department in good condition without significant complaint. US/Thoracentesis W US IMPRESSION: Successful right thoracentesis, with 1.41 L clear yellow fluid successfully rem dada. Reading Location: [place] [address]
[2024-11-15] MEDS: Lidocaine 2% (20 ml mdv) 20 ML Vial INFILT (11:06)
[2024-11-15 11:26] VITALS: BP 123/80; PULSE 89; RESP 18; O2SAT 96
[2024-11-15 12:06] VITALS: BP 123/83; PULSE 88; RESP 18; O2SAT 97
== END | disposition home or self-care (01) ==
LOC: US 10:12
PROVIDERS: PCP Family Medicine; Referring Provider Internal Medicine Hematology & Oncology; Visit Provider Internal Medicine Hematology & Oncology
DX: J90 Pleural effusion, not elsewhere classified (principal)
CPT/HCPCS: 32555

== ENCOUNTER → 2024-11-22 | Outpatient (CLI) | payer MEDICARE, OTHER, SELFPAY ==
--- NOTE | 2024-11-22 10:31 | RAD_ITS ---
EXAM: Post right thoracentesis. CLINICAL HISTORY: Right pleural effusion. COMPARISON: Prior study dated October 31, 2024. TECHNIQUE: AP inspiration expiration views. FINDINGS: Status post right thoracentesis. No evidence of pneumothorax. Residual pleural-parenchymal changes are seen. RAD/Chest Insp/Exp 2 View IMPRESSION: No evidence of pneumothorax on the post right thoracentesis examination. Residual pleural-parenchymal changes seen. Reading Location: [id number]
[2024-11-22 10:40] VITALS: BP 123/58; PULSE 91; RESP 18; TEMP 36.4; O2SAT 92
[2024-11-22] MEDS: Lidocaine 2% (20 ml mdv) 20 ML Vial INFILT (10:44)
[2024-11-22 10:45] VITALS: BP 125/71; PULSE 90; RESP 18; O2SAT 18
[2024-11-22 10:59] VITALS: BP 109/65; PULSE 97; RESP 18; O2SAT 95
[2024-11-22 11:15] VITALS: BP 117/67; PULSE 89; RESP 18; O2SAT 95
== END | disposition home or self-care (01) ==
LOC: US 10:19
PROVIDERS: PCP Family Medicine; Referring Provider Internal Medicine Hematology & Oncology; Visit Provider Internal Medicine Hematology & Oncology
DX: J90 Pleural effusion, not elsewhere classified (principal)
CPT/HCPCS: 32555; 71046

== ENCOUNTER → 2024-11-29 | Outpatient (CLI) | payer MEDICARE, OTHER, SELFPAY ==
[2024-11-29 10:32] VITALS: BP 115/70; PULSE 100; RESP 16; O2SAT 98
[2024-11-29] MEDS: Lidocaine 2% (20 ml mdv) 20 ML Vial INFILT (10:37)
[2024-11-29 10:45] VITALS: BP 112/69; PULSE 102; RESP 16; O2SAT 97
[2024-11-29 10:52] VITALS: BP 119/67; PULSE 102; RESP 16; O2SAT 98
--- NOTE | 2024-11-29 10:55 | RAD_ITS ---
EXAM: Post thoracentesis images. CLINICAL HISTORY: Status post right thoracentesis. COMPARISON: Prior study dated November 22, 2024. TECHNIQUE: Inspiration expiration views were obtained. The patient is status post right thoracentesis. No evidence of pneumothorax. Minimal residual pleural-parenchymal changes are seen. FINDINGS: No evidence of pneumothorax following the right thoracentesis. RAD/Chest Insp/Exp 2 View IMPRESSION: No evidence of pneumothorax following a right thoracentesis. Reading Location: [facility]
--- NOTE | 2024-11-29 11:04 | OP.PCM_ITS ---
Problems Associated Problem List Diagnoses (1) Pleural effusion, right: Multi Select Codes Radiology Radiology [place] Procedures: [id number] Thoracentesis Operative Report (Standard) Operative Information Date of Procedure: 11/29/24 Pre-Operative Diagnosis: Pleural effusion Post-Operative Diagnosis: Pleural effusion Surgery/Procedure Performed: Ultrasound-guided thoracentesis visualizer: No Type of Anesthesia: Local Procedure Start Time: 10:37 Procedure Stop Time: 10:55 Select all DRAINS/GRAFTS/IMPLANTS that apply: None Estimated Blood Loss: 0 Specimen collected: No Description of surgery: PROCEDURE: Ultrasound Guided Thoracentesis ORDERING PROVIDER: Dr. Albright INDICATION: Female, 69 years old. Pleural effusion, right. PROVIDER: LUPIS Mitchell PROCEDURE: The risks, benefits, and alternatives to the procedure were explained to the patient. The specific risks of bleeding, infection, and pneumothorax requiring chest tube insertion were discussed and accepted. Written informed consent was obtained. The patient was placed in the sitting, upright position. Ultrasonographic evaluation of the bilateral lower pleural spaces was carried out. An adequate pocket was identified in the right lower pleural space. The overlying skin was prepped with chlorhexidine and draped in sterile fashion. 2 % lidocaine was administered subcutaneously for local anesthesia. Under ultrasound guidance, a 5-Palestinian thoracentesis needle/catheter system was advanced into the right posterior lower pleural fluid collection. 1200 ml of clear yellow colored fluid was drained. The catheter was removed, and a sterile dressing was applied. The patient tolerated the procedure well. There were no immediate complications. A chest x-ray was ordered; there was no evidence of pneumothorax. The procedure was proctored by interventional radiologist Dr. Bauman. IMPRESSION: Successful ultrasound guided thoracentesis of right pleural effusion. Surgical Findings: None Complications Complications: No
[2024-11-29 11:07] VITALS: BP 119/74; PULSE 98; RESP 16; O2SAT 98
== END | disposition home or self-care (01) ==
PROVIDERS: PCP Family Medicine; Referring Provider Internal Medicine Hematology & Oncology; Visit Provider Internal Medicine Hematology & Oncology
DX: J90 Pleural effusion, not elsewhere classified (principal)
CPT/HCPCS: 32555; 71046

== ENCOUNTER → 2024-12-07 | Outpatient (CLI) | payer MEDICARE, OTHER, SELFPAY ==
--- NOTE | 2024-11-22 11:58 | OP.PCM_ITS ---
Procedures Hospitalists Procedures: 42774 Aspirate Pleura w/Imaging Operative Report (Standard) Operative Information Date of Procedure: 11/22/24 Pre-Operative Diagnosis: Malignant Pleural Effusion Post-Operative Diagnosis: Malignant Pleural Effusion Surgery/Procedure Performed: Thoracentesis chief operating engineer: No Type of Anesthesia: Local Procedure Start Time: 10:41 Procedure Stop Time: 11:01 Select all DRAINS/GRAFTS/IMPLANTS that apply: None Estimated Blood Loss: 0 Specimen collected: No Description of surgery: ROCEDURE: Ultrasound Guided Thoracentesis ORDERING PROVIDER: Dr. Albright INDICATION: Female, 69 years old. Pleural effusion. PROVIDER: Ai Roldan D.O. PROCEDURE: The risks, benefits, and alternatives to the procedure were explained to the patient. The specific risks of bleeding, infection, and pneumothorax requiring chest tube insertion were discussed and accepted. Written informed consent was obtained and a time out was performed The patient was placed in the sitting, upright position. Ultrasonographic evaluation of the bilateral lower pleural spaces was carried out. An adequate pocket was identified in the right lower pleural space. The overlying skin was prepped with chlorhexidine and draped in sterile fashion. The area was prepped again with Betadine. 2 % lidocaine was administered subcutaneously for local anesthesia. Under ultrasound guidance, a 5-Hungarian thoracentesis needle/catheter system was advanced into the right posterior lower pleural fluid collection. 1250 ml of clear yellow colored fluid was drained. The catheter was removed, and a sterile dressing was applied. The patient tolerated the procedure well. A chest x-ray was ordered. There was no evidence of pneumothorax. There were no immediate complications. Surgical Findings: IMPRESSION: Successful ultrasound guided thoracentesis of right pleural effusion. Surgical Findings: None Complications Complications: No
--- NOTE | 2024-12-07 10:18 | US_ITS ---
PROCEDURE: THORACENTESIS W US 12/07/2024 REASON FOR EXAM: MALIGNANT PLEURAL EFFUSION TECHNIQUE: The procedure as well as the benefits and possible complications including infection, bleeding as well as pneumothorax were explained to the patient. Informed consent was obtained. The overlying skin was prepped and draped in the usual sterile fashion. Following local anesthetic application and under direct sonographic guidance, a 5 Indonesian drainage catheter was placed into the right pleural space. 740 mL of jimmie colored fluid was aspirated. COMPARISON: Prior examination dated November 29, 2024. FINDINGS: Successful ultrasound-guided right thoracentesis with drainage of cm 740 mL of jimmie colored fluid. US/Thoracentesis W US IMPRESSION: Successful ultrasound-guided right thoracentesis as described. The patient pebbles erated the procedure well. No immediate complication was noted. Reading Location: [place] [address]
[2024-12-07] MEDS: Lidocaine 2% (20 ml mdv) 20 ML Vial INFILT (10:45)
--- NOTE | 2024-12-07 10:55 | RAD_ITS ---
EXAM: Inspiration expiration views. CLINICAL HISTORY: Status post right thoracentesis. COMPARISON: Prior study dated November 29, 2024. TECHNIQUE: AP inspiration expiration views were obtained. FINDINGS: Status post right thoracentesis. No evidence of pneumothorax. Mild residual pleural-parenchymal changes seen at the right lung base. RAD/Chest Insp/Exp 2 View IMPRESSION: No evidence of pneumothorax on the immediate post right thoracentesis examinati on. Reading Location: [facility]
[2024-12-07 11:09] VITALS: BP 97/72; PULSE 83; RESP 18; O2SAT 94
[2024-12-07 11:10] VITALS: BP 91/64; PULSE 95; RESP 18; O2SAT 97
== END | disposition home or self-care (01) ==
LOC: US 10:16
PROVIDERS: PCP Family Medicine; Referring Provider Internal Medicine Hematology & Oncology; Visit Provider Internal Medicine Hematology & Oncology
DX: J90 Pleural effusion, not elsewhere classified (principal)
CPT/HCPCS: 32555; 71046

== ENCOUNTER → 2024-12-13 | Outpatient (CLI) | payer MEDICARE, OTHER, SELFPAY ==
[2024-12-13] VITALS (9 sets, daily range): BP systolic 83–111; BP diastolic 47–68; PULSE 82–90; RESP 16; O2SAT 95–97
--- NOTE | 2024-12-13 10:15 | US_ITS ---
PROCEDURE: ULTRASOUND-GUIDED RIGHT THORACENTESIS 12/13/2024 REASON FOR EXAM: MALIGNANT PLEURAL EFFUSION. TECHNIQUE: Ultrasound imaging was utilized to document the site of thoracentesis, right hemithorax. COMPARISON: Recent thoracentesis dated 12/07/2024. FINDINGS: Informed consent was obtained. The patient was prepped and draped in the usual sterile fashion. Anesthetic: Lidocaine 2% was utilized for local anesthesia. Catheter: 5F, 10 cm in length [id number] Centesis Catheter. Drained fluid: 1190 mL. Fluid color: Yellowish. Fluid clarity: Clear. Fluid disposition: Discarded. US/Thoracentesis W US IMPRESSION: Successful RIGHT thoracentesis under ultrasound guidance. Patient tolerated the procedure well. Thank you for this referral. Reading Location: [place] [address]
[2024-12-13] MEDS: Lidocaine 2% (20 ml mdv) 20 ML Vial INFILT (11:05)
--- NOTE | 2024-12-13 11:20 | RAD_ITS ---
EXAM: Two-view AP and lateral portable upright inspiratory and expiratory chest CLINICAL HISTORY: Post thoracentesis. COMPARISON: Chest x-ray of 12/07/2024. TECHNIQUE: Two-view AP and lateral portable upright inspiratory and expiratory chest. RAD/Chest Insp/Exp 2 View IMPRESSION: No significant pneumothorax is seen. Small bilateral pleural effusions, [id number]-left, are noted. No evidence of pulmonary edema. The cardiomediastinal silhouette is stable, without evidence of cardiomegaly. Reading Location: [id number]
== END | disposition home or self-care (01) ==
LOC: US 10:15
PROVIDERS: PCP Family Medicine; Referring Provider Internal Medicine Hematology & Oncology; Visit Provider Internal Medicine Hematology & Oncology
DX: C50.911 Malignant neoplasm of unspecified site of right female breast (principal); C78.2 Secondary malignant neoplasm of pleura; J91.0 Malignant pleural effusion
CPT/HCPCS: 32555; 71046

== ENCOUNTER → 2024-12-20 | Outpatient (CLI) | payer MEDICARE, OTHER, SELFPAY ==
--- NOTE | 2024-12-20 07:54 | RAD_ITS ---
EXAM: Portable chest in inspiration and expiration. CLINICAL HISTORY: Status post thoracentesis. COMPARISON: Portable chest, post thoracentesis, 12/13/2024. TECHNIQUE: Upright portable AP images of the chest were obtained in inspiration and expiration. FINDINGS: No significant pneumothorax is seen. Small bilateral pleural effusions, [id number]-left, are noted. No evidence of pulmonary edema. The cardiomediastinal silhouette is stable, without evidence of cardiomegaly. RAD/Chest Insp/Exp 2 View IMPRESSION: No evidence of pneumothorax status post thoracentesis. Reading Location: [place] [address]
[2024-12-20 10:30] VITALS: BP 101/57; PULSE 97; RESP 16; TEMP 36.3; O2SAT 95
[2024-12-20] MEDS: Lidocaine 2% (20 ml mdv) 20 ML Vial INFILT (10:42)
[2024-12-20 10:45] VITALS: BP 95/54; PULSE 98; RESP 16; O2SAT 97
[2024-12-20 10:48] VITALS: BP 95/50; PULSE 95; RESP 16; O2SAT 97
[2024-12-20 10:50] VITALS: BP 87/52; PULSE 98; RESP 16; O2SAT 98
--- NOTE | 2024-12-20 10:54 | PCM.OPRPT ---
Problems Associated Problem List Diagnoses (1) Pleural effusion, right: Multi Select Codes Radiology Radiology [place] Procedures: [id number] Thoracentesis Operative Report (Standard) Operative Information Date of Procedure: 12/20/24 Pre-Operative Diagnosis: Pleural effusion Post-Operative Diagnosis: Pleural effusion Surgery/Procedure Performed: Ultrasound-guided thoracentesis director council on aging: No Type of Anesthesia: Local Procedure Start Time: 10:37 Procedure Stop Time: 10:50 Select all DRAINS/GRAFTS/IMPLANTS that apply: None Estimated Blood Loss: 0 Specimen collected: No Description of surgery: PROCEDURE: Ultrasound Guided Thoracentesis ORDERING PROVIDER: Dr. Albright INDICATION: Female, 69 years old. Pleural effusion, right. PROVIDER: LUPIS Mitchell PROCEDURE: The risks, benefits, and alternatives to the procedure were explained to the patient. The specific risks of bleeding, infection, and pneumothorax requiring chest tube insertion were discussed and accepted. Written informed consent was obtained. The patient was placed in the sitting, upright position. Ultrasonographic evaluation of the bilateral lower pleural spaces was carried out. An adequate pocket was identified in the right lower pleural space. The overlying skin was prepped with chlorhexidine and draped in sterile fashion. 2 % lidocaine was administered subcutaneously for local anesthesia. Under ultrasound guidance, a 5-V[place] Citizen thoracentesis needle/catheter system was advanced into the right posterior lower pleural fluid collection. 1270 ml of clear yellow colored fluid was drained. The catheter was removed, and a sterile dressing was applied. The patient tolerated the procedure well. There were no immediate complications. A chest x-ray was ordered. There were no signs of pneumothorax. The procedure was proctored by interventional radiologist Dr. Bauman. IMPRESSION: Successful ultrasound guided thoracentesis of right pleural effusion. Surgical Findings: None Complications Complications: No
[2024-12-20 10:58] VITALS: BP 99/57; PULSE 95; RESP 16; O2SAT 97
== END | disposition home or self-care (01) ==
LOC: US 10:26
PROVIDERS: PCP Family Medicine; Referring Provider Internal Medicine Hematology & Oncology; Visit Provider Internal Medicine Hematology & Oncology
DX: C50.911 Malignant neoplasm of unspecified site of right female breast (principal); C78.2 Secondary malignant neoplasm of pleura; J91.0 Malignant pleural effusion
CPT/HCPCS: 32555; 71046

== ENCOUNTER → 2024-12-27 | Outpatient (CLI) | payer MEDICARE, OTHER, SELFPAY ==
[2024-12-27] MEDS: Lidocaine 2% (20 ml mdv) 20 ML Vial INFILT (11:02)
--- NOTE | 2024-12-27 11:12 | RAD_ITS ---
PROCEDURE: CHEST INSP/EXP 2 VIEW 12/27/2024 REASON FOR EXAM: POST THORACENTESIS TECHNIQUE: CHEST INSP/EXP 2 VIEW COMPARISON: Prior study dated December 20, 2024. FINDINGS: The patient is status post right thoracentesis. No evidence of pneumothorax. Residual pleural-parenchymal changes seen. RAD/Chest Insp/Exp 2 View IMPRESSION: No evidence of pneumothorax following the right thoracentesis. Mild residual p leural-parenchymal changes. Reading Location: [facility]
--- NOTE | 2024-12-27 11:15 | OP.PCM_ITS ---
Problems Associated Problem List Diagnoses (1) Pleural effusion, right: Multi Select Codes Radiology Radiology US Procedures: [id number] Thoracentesis Operative Report (Standard) Operative Information Date of Procedure: 12/27/24 Pre-Operative Diagnosis: Pleural effusion, right Post-Operative Diagnosis: Pleural effusion, right Surgery/Procedure Performed: Ultrasound-guided thoracentesis supervisor dry paste: No Type of Anesthesia: Local Procedure Start Time: 10:57 Procedure Stop Time: 11:11 Select all DRAINS/GRAFTS/IMPLANTS that apply: None Estimated Blood Loss: 0 Specimen collected: No Description of surgery: PROCEDURE: Ultrasound Guided Thoracentesis ORDERING PROVIDER: Dr. Albright INDICATION: Female, 69 years old. Pleural effusion, right. PROVIDER: LUPIS Mitchell PROCEDURE: The risks, benefits, and alternatives to the procedure were explained to the patient. The specific risks of bleeding, infection, and pneumothorax requiring chest tube insertion were discussed and accepted. Written informed consent was obtained. The patient was placed in the sitting, upright position. Ultrasonographic evaluation of the bilateral lower pleural spaces was carried out. An adequate pocket was identified in the right lower pleural space. The overlying skin was prepped with chlorhexidine and draped in sterile fashion. 2 % lidocaine was administered subcutaneously for local anesthesia. Under ultrasound guidance, a 5-American thoracentesis needle/catheter system was adva nced into the right posterior lower pleural fluid collection. 1120 ml of clear yellow colored fluid was drained. The catheter was removed, and a sterile dressing was applied. The patient tolerated the procedure well. There were no immediate complications. A chest x-ray was ordered. There was no evidence of pneumothorax. The procedure was proctored by interventional radiologist Dr. Bauman. IMPRESSION: Successful ultrasound guided thoracentesis of right pleural effusion. Surgical Findings: None Complications Complications: No
[2024-12-27 11:28] VITALS: BP 115/75; BP 117/63; PULSE 80; PULSE 851; RESP 18; O2SAT 96; O2SAT 97
== END | disposition home or self-care (01) ==
LOC: US 10:17
PROVIDERS: PCP Family Medicine; Referring Provider Internal Medicine Hematology & Oncology; Visit Provider Internal Medicine Hematology & Oncology
DX: C50.911 Malignant neoplasm of unspecified site of right female breast (principal); C78.2 Secondary malignant neoplasm of pleura; J91.0 Malignant pleural effusion
CPT/HCPCS: 32555; 71046

== ENCOUNTER → 2025-01-03 | Outpatient (CLI) | payer MEDICARE, OTHER, SELFPAY ==
--- NOTE | 2025-01-03 10:19 | US_ITS ---
PROCEDURE: Small left and evovo-sb-gfmbscbf right pleural effusions noted. THORACENTESIS W US 01/03/2025 REASON FOR EXAM: MALIGNANT PLEURAL EFFUSION TECHNIQUE: THORACENTESIS W US COMPARISON: None. FINDINGS: Following informed consent, and using standard sterile technique, a right thoracentesis was performed via a posterior approach under sonographic guidance. 2% lidocaine local anesthesia was followed by placement of a 5 Saudi Arabian catheter into the right pleural fluid collection. Approximately 1.65 L of reddish fluid was successfully removed. No complication was encountered, in the patient left the department in good condition without significant complaint. US/Thoracentesis W US IMPRESSION: Successful therapeutic right thoracentesis. Reading Location: [place] [address]
[2025-01-03 10:38] VITALS: BP 141/78; PULSE 96; RESP 16; TEMP 36.8; O2SAT 96
[2025-01-03 10:45] VITALS: BP 131/76; PULSE 91; RESP 16; O2SAT 95
[2025-01-03] MEDS: Lidocaine 2% (20 ml mdv) 20 ML Vial INFILT (10:47)
[2025-01-03 10:58] VITALS: BP 126/77; PULSE 94; RESP 16; O2SAT 96
== END | disposition home or self-care (01) ==
LOC: US 10:16
PROVIDERS: PCP Family Medicine; Referring Provider Internal Medicine Hematology & Oncology; Visit Provider Internal Medicine Hematology & Oncology
DX: C50.911 Malignant neoplasm of unspecified site of right female breast (principal); C78.2 Secondary malignant neoplasm of pleura; J91.0 Malignant pleural effusion
CPT/HCPCS: 32555

== ENCOUNTER → 2025-01-10 | Outpatient (CLI) | payer MEDICARE, OTHER, SELFPAY ==
--- NOTE | 2025-01-10 11:46 | US_ITS ---
PROCEDURE: THORACENTESIS W US 01/10/2025 REASON FOR EXAM: MALIGNANT PLEURAL EFFUSION TECHNIQUE: THORACENTESIS W US COMPARISON: Thoracentesis of 01/03/2025. FINDINGS: Following informed consent, and using standard sterile technique, a right thoracentesis was performed under ultrasound guidance, via a posterior approach. 2% lidocaine local anesthesia was followed by placement of a 5 Monegasque catheter into the pleural fluid collection. Approximately 1820 mL blood-tinged fluid was successfully removed. No complication was encountered, and the patient left the department in good condition without significant complaint. Also, limited imaging of the left pleural space shows the presence of a small left pleural fluid collection US/Thoracentesis W US IMPRESSION: Successful right thoracentesis. Repeat as clinically indicated. Reading Location: [place] [address]
[2025-01-10 12:04] VITALS: BP 111/68; PULSE 89; RESP 16; O2SAT 96
[2025-01-10] MEDS: Lidocaine 2% (20 ml mdv) 20 ML Vial INFILT (12:09)
[2025-01-10 12:15] VITALS: BP 120/78; PULSE 84; RESP 16; O2SAT 95
[2025-01-10 12:24] VITALS: BP 110/77; PULSE 89; RESP 16; O2SAT 96
== END | disposition home or self-care (01) ==
LOC: US 11:45
PROVIDERS: PCP Family Medicine; Referring Provider Internal Medicine Hematology & Oncology; Visit Provider Internal Medicine Hematology & Oncology
DX: C50.911 Malignant neoplasm of unspecified site of right female breast (principal); C78.2 Secondary malignant neoplasm of pleura; J91.0 Malignant pleural effusion
CPT/HCPCS: 32555

== ENCOUNTER → 2025-01-17 | Outpatient (CLI) | payer MEDICARE, OTHER, SELFPAY ==
[2025-01-17 10:45] VITALS: BP 136/73; PULSE 86; RESP 18; TEMP 36.7; O2SAT 95
[2025-01-17] MEDS: Lidocaine 2% (20 ml mdv) 20 ML Vial INFILT (10:51)
[2025-01-17 10:54] VITALS: BP 112/74; PULSE 81; RESP 18; O2SAT 94
[2025-01-17 10:56] VITALS: BP 112/66; PULSE 80; RESP 18; O2SAT 94
[2025-01-17 10:58] VITALS: BP 108/56; PULSE 82; RESP 18; O2SAT 94
[2025-01-17 11:00] VITALS: BP 108/61; PULSE 93; RESP 18; O2SAT 92
[2025-01-17 11:06] VITALS: BP 118/75; PULSE 83; RESP 16; O2SAT 93
== END | disposition home or self-care (01) ==
LOC: US 10:18
PROVIDERS: PCP Family Medicine; Referring Provider Internal Medicine Hematology & Oncology; Visit Provider Internal Medicine Hematology & Oncology
DX: C50.911 Malignant neoplasm of unspecified site of right female breast (principal); C78.2 Secondary malignant neoplasm of pleura; J91.0 Malignant pleural effusion
CPT/HCPCS: 32555; 71046

== ENCOUNTER → 2025-01-24 | Outpatient (CLI) | payer MEDICARE, OTHER, SELFPAY ==
--- NOTE | 2025-01-24 10:17 | US_ITS ---
PROCEDURE: THORACENTESIS W US 01/24/2025 REASON FOR EXAM: MALIGNANT PE TECHNIQUE: THORACENTESIS W US The procedure as well as the benefits and possible complications including infection and bleeding were explained to the patient. Informed consent was obtained. Following local anesthetic application, a 5 Eritrean drainage catheter was placed into the right pleural cavity. 1500 mL of jimmie colored fluid was aspirated. The patient tolerated the procedure well. COMPARISON: January 17/2025. FINDINGS: Successful right thoracentesis. US/Thoracentesis W US IMPRESSION: Successful right thoracentesis with removal of 1500 mL of jimmie colored fluid. The patient tolerated the procedure well. No immediate complication noted. Reading Location: [facility]
--- NOTE | 2025-01-24 10:45 | RAD_ITS ---
EXAM: Chest x-ray, postprocedure CLINICAL HISTORY: Post thoracentesis COMPARISON: January 17, 2025 TECHNIQUE: Chest frontal view with inspiration and expiration FINDINGS: There is moderate cardiomegaly. Central vascularity appears mildly increased. There is a moderate right and trace left pleural effusion, similar to the prior. There is no visible pneumothorax. Surgical clips are noted in the left axilla. There is no acute bony abnormality. Aortic calcifications are visible. RAD/Chest Insp/Exp 2 View IMPRESSION: There is moderate cardiomegaly. Central vascularity appears mildly increased. There is a moderate right and trace left pleural effusion, similar to the prior . There is no visible pneumothorax. Reading Location: [facility]
[2025-01-24 10:53] VITALS: BP 109/68; PULSE 90; RESP 16; TEMP 36.7; O2SAT 95
[2025-01-24] MEDS: Lidocaine 2% (20 ml mdv) 20 ML Vial INFILT (10:56)
[2025-01-24 11:00] VITALS: BP 100/63; PULSE 85; RESP 16; O2SAT 94
[2025-01-24 11:03] VITALS: BP 110/71; PULSE 88; RESP 16; O2SAT 94
[2025-01-24 11:08] VITALS: BP 106/66; PULSE 96; RESP 16; O2SAT 95
[2025-01-24 11:16] VITALS: BP 102/63; PULSE 88; RESP 16; O2SAT 95
[2025-01-24 11:30] VITALS: BP 99/59; PULSE 92; RESP 16; O2SAT 95
== END | disposition home or self-care (01) ==
LOC: US 10:16
PROVIDERS: PCP Family Medicine; Referring Provider Internal Medicine Hematology & Oncology; Visit Provider Internal Medicine Hematology & Oncology
DX: C50.911 Malignant neoplasm of unspecified site of right female breast (principal); C78.2 Secondary malignant neoplasm of pleura; J91.0 Malignant pleural effusion
CPT/HCPCS: 32555; 71046

== ENCOUNTER → 2025-01-25 | Outpatient (CLI) | payer MEDICARE, OTHER, SELFPAY ==
--- NOTE | 2025-01-25 08:00 | PET_ITS ---
PROCEDURE: PET/CT TUMOR BASE -THIGH SUBS 01/25/2025 REASON FOR EXAM: 69 y/o history of left breast cancer. TECHNIQUE: Following the intravenous administration of radionucleotide, image acquisition on a dedicated PET/CT unit was performed at one hour post injection. A preliminary CT study encompassing the Skull base, neck, chest, abdomen, pelvis, and proximal thighs was performed for purposes of attenuation correction and anatomic localization. The proximal thighs were also included. RADIOPHARMACEUTICAL: 12.5 mCi 18F-FDG (Fluorodeoxyglucose F18) IV was injected into he patient. RADIATION DOSE SUMMARY: Effective Dose: Approximately 7 mSv for a standard whole-body PET scan Organ Doses: Varies by organ, with higher doses typically to the bladder, liver, and brain COMPARISON: COMPARISON FROM CT, PET OR OTHER PERTINENT EXAMS: PET-CT, 08/03/2024. FINDINGS: Physiologic uptake: There may be expected metabolic uptake within the brain, tongue and floor of the mouth and larynx/vocal cords, heart, marvin (many normal individuals have hilar uptake in less than 3 nodes with mildly avid hilar nodes less than 2.7 SUV), liver and spleen, system, and GI tract and symmetric muscle uptake. FDG AVID AND NON-AVID LESIONS. Reported avid SUV values (g/mL) are maximum SUV. Head and neck: There is a normal distribution of FDG activity in the visualized brain parenchyma. There is minimal calcific vascular disease in the right carotid bifurcation. There is heterogeneous density of the thyroid gland without discrete nodules. There is normal uptake within the soft tissues of the neck and glandular structures. There is no hypermetabolic lymphadenopathy. Chest: The hypermetabolism of the airspace consolidation in the upper lobe and middle lobes of the right lung has normalized. There remains airspace consolidation which may be residual atelectasis. There is no abnormal FDG activity in the pulmonary parenchyma. There is a large, partially loculated, right pleural effusion, max SUV 1.1. There is a moderate left pleural effusion, max SUV 0.9. The right-sided pleural activity has decreased, max SUV 1.3. The heart is enlarged. There is no pericardial effusion. There is mild calcific vascular disease of the thoracic aorta and coronary arteries. The hypermetabolic right lymph node retropectoral seen on the prior exam is no longer identified. There is no hypermetabolic mediastinal, hilar or axillary lymphadenopathy. Abdomen and pelvis: There are multiple benign hepatic cysts. There is cholelithiasis. There is a complex cyst in the upper pole of the left kidney demonstrating no FDG activity. There is a 4.7 x 4.4 cm cyst in the left hemipelvis with an 8 x 5 mm mural nodule demonstrating FDG activity, max SUV 5.5 (was 20 x 15 mm, max SUV 9.4). There is a normal distribution of FDG activity within the gastrointestinal and genitourinary tract. There is no hypermetabolic lymphadenopathy identified. Musculoskeletal: There are no suspicious hypermetabolic osteolytic or osteosclerotic lesions. Multiple sclerotic skeletal foci demonstrating hypermetabolic activity have normalized. Uptake time: 60 minutes. Mediastinal blood pool: Max SUV, Blood glucose: 101 BMI: 27.98 PET/PET/CT Tumor Base -Thigh Subs IMPRESSION: 1. Interval decrease activity in the area of airspace consolidation in the upp er and middle lobes of the right lung. What is: None go ahead I sent it to a [facility] 2. Interval decr eased activity in multiple sclerotic skeletal foci. 3. Interval decreased activity in the base of the right divine thorax. 4. Interval decreased activity in hypermetabolic foci in the liver. 5. Interval decrease in size and activity of the mural nodule within the cyst in the left hemipelvis. 6. Interval resolution of a right retropectoral hypermetabolic lymph node. 7. Other findings as noted. Overall, compared with the prior PET-CT of 08/03/2024, there has been interval decrease in activity of multiple sites of presumed neoplastic disease. Reading Location: [place] [address]
== END | disposition home or self-care (01) ==
LOC: ONC 07:39
PROVIDERS: PCP Family Medicine; Referring Provider Internal Medicine Hematology & Oncology; Visit Provider Internal Medicine Hematology & Oncology
DX: C50.412 Malignant neoplasm of upper-outer quadrant of left female breast (principal); C78.2 Secondary malignant neoplasm of pleura; J91.0 Malignant pleural effusion; C79.51 Secondary malignant neoplasm of bone; C50.911 Malignant neoplasm of unspecified site of right female breast; C50.912 Malignant neoplasm of unspecified site of left female breast; Z17.0 Estrogen receptor positive status [ER+]; Z15.01 Genetic susceptibility to malignant neoplasm of breast; Z15.09 Genetic susceptibility to other malignant neoplasm
CPT/HCPCS: 78815; A9552

== ENCOUNTER → 2025-01-31 | Outpatient (CLI) | payer MEDICARE, OTHER, SELFPAY ==
[2025-01-31] VITALS (7 sets, daily range): BP systolic 114–128; BP diastolic 52–76; PULSE 96–102; RESP 15–16; TEMP 36.6; O2SAT 94–95
[2025-01-31] MEDS: Lidocaine 2% (20 ml mdv) 20 ML Vial INFILT (10:44)
--- NOTE | 2025-01-31 11:00 | RAD_ITS ---
EXAM: XR Chest, 1 View CLINICAL INDICATION: POST THORACENTESIS TECHNIQUE: Frontal view of the chest. COMPARISON: No relevant prior studies available. FINDINGS: LUNGS AND PLEURAL SPACES: Right basilar atelectasis or pneumonia. Right pleural effusion. No pneumothorax. HEART: Unremarkable. No cardiomegaly. MEDIASTINUM: Unremarkable. Normal mediastinal contour. BONES/JOINTS: Unremarkable. No acute fracture. RAD/Chest Insp/Exp 2 View IMPRESSION: 1. Right basilar atelectasis or pneumonia. 2. Right pleural effusion. Reading Location[facility]
--- NOTE | 2025-01-31 11:06 | OP.PCM_ITS ---
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 Albright INDICATION: Female, 69 years old. Pleural effusion, right. PROVIDER: LUPIS Mitchell PROCEDURE: The risks, benefits, and alternatives to the procedure were explained to the patient. The specific risks of bleeding, infection, and pneumothorax requiring chest tube insertion were discussed and accepted. Written informed consent was obtained. The patient was placed in the sitting, upright position. Ultrasonographic evaluation of the bilateral lower pleural spaces was carried out. An adequate pocket was identified in the right lower pleural space. The overlying skin was prepped with chlorhexidine and draped in sterile fashion. 2 % lidocaine was administered subcutaneously for local anesthesia. Under ultrasound guidance, a 5-Frisian thoracentesis needle/catheter system was advanced into the right posterior lower pleural fluid collection. 1600 ml of clear red colored fluid was drained. The catheter was removed, and a sterile dressing was applied. The patient tolerated the procedure well without any immediate complications. A chest x-ray was ordered. There was no evidence of pneumothorax. IMPRESSION: Successful ultrasound guided thoracentesis of right pleural effusion. Surgical Findings: None Complications Complications: No
== END | disposition home or self-care (01) ==
LOC: US 10:23
PROVIDERS: PCP Family Medicine; Referring Provider Internal Medicine Hematology & Oncology; Visit Provider Internal Medicine Hematology & Oncology
DX: C50.911 Malignant neoplasm of unspecified site of right female breast (principal); C78.2 Secondary malignant neoplasm of pleura; J91.0 Malignant pleural effusion
CPT/HCPCS: 32555; 71046

== ENCOUNTER → 2025-02-07 | Outpatient (CLI) | payer MEDICARE, OTHER, SELFPAY ==
--- NOTE | 2025-02-07 10:43 | US_ITS ---
PROCEDURE: THORACENTESIS W US 02/07/2025 Following informed consent, and using standard sterile technique, an ultrasound- guided right thoracentesis was performed via a posterior approach. 2% lidocaine local anesthesia was followed by placement of a 5 Hong Konger catheter into the right pleural fluid collection. A proximally 1350 mL jimmie colored clear fluid was successfully removed. No complication was encountered, in the patient left the department in good condition without significant complaints. REASON FOR EXAM: MALIGNANT NEOPLASM OF UNSPECIFIED SITE OF RIGHT FEMALE BREAST TECHNIQUE: THORACENTESIS W US US/Thoracentesis W US IMPRESSION: Successful ultrasound-guided right thoracentesis. Reading Location: [place] [address]
[2025-02-07] MEDS: Lidocaine 2% (20 ml mdv) 20 ML Vial INFILT (11:14)
[2025-02-07 11:35] VITALS: BP 125/80; PULSE 87; RESP 18; O2SAT 96
[2025-02-07 11:36] VITALS: BP 129/74; PULSE 74; RESP 18; O2SAT 96
== END | disposition home or self-care (01) ==
LOC: US 10:41
PROVIDERS: PCP Family Medicine; Referring Provider Internal Medicine Hematology & Oncology; Visit Provider Internal Medicine Hematology & Oncology
DX: C50.911 Malignant neoplasm of unspecified site of right female breast (principal); J91.0 Malignant pleural effusion
CPT/HCPCS: 32555

== ENCOUNTER → 2025-02-14 | Outpatient (CLI) | payer MEDICARE, OTHER, SELFPAY ==
--- NOTE | 2025-02-14 10:19 | US_ITS ---
PROCEDURE: THORACENTESIS W US 02/14/2025 REASON FOR EXAM: Malignant pleural effusion. TECHNIQUE: Ultrasound-guided right thoracentesis was performed following informed consent and standard sterile technique, 2% lidocaine local anesthesia was followed by placement a 5 Irish catheter into the right pleural fluid collection. A posterolateral approach. Approximately 1150 mL jimmie colored clear fluid was successfully removed. No complication was encountered, the patient left the department in good condition without significant complaint. US/Thoracentesis W US IMPRESSION: Successful therapeutic ultrasound-guided right thoracentesis. Reading Location: [place] [address]
[2025-02-14 10:35] VITALS: BP 129/77; PULSE 99; RESP 18; TEMP 36.6; O2SAT 95
[2025-02-14] MEDS: Lidocaine 2% (20 ml mdv) 20 ML Vial INFILT (10:44)
[2025-02-14 10:45] VITALS: BP 138/84; PULSE 95; RESP 18; O2SAT 95
[2025-02-14 10:56] VITALS: BP 123/84; PULSE 105; RESP 18; O2SAT 96
== END | disposition home or self-care (01) ==
LOC: US 10:17
PROVIDERS: PCP Family Medicine; Referring Provider Internal Medicine Hematology & Oncology; Visit Provider Internal Medicine Hematology & Oncology
DX: J90 Pleural effusion, not elsewhere classified (principal)
CPT/HCPCS: 32555

== ENCOUNTER → 2025-02-15 | Outpatient (CLI) | payer MEDICARE, OTHER, SELFPAY ==
--- NOTE | 2025-02-15 10:00 | PET_ITS ---
PROCEDURE: PET/CT TUMOR BASE -THIGH SUBS 02/15/2025 REASON FOR EXAM: 69 y/o F with left breast carcinoma. TECHNIQUE: Following the intravenous administration of radionucleotide, image acquisition on a dedicated PET/CT unit was performed at one hour post injection. A preliminary CT study encompassing the Skull base, neck, chest, abdomen, pelvis, and proximal thighs was performed for purposes of attenuation correction and anatomic localization. The proximal thighs were also included. The patient's blood glucose level was 85 mg/dL (allowable range: 50-180 mg/dL). RADIOPHARMACEUTICAL: 14.328 mCi 18F-FDG (Fluorodeoxyglucose F18) IV was injected into he patient. RADIATION DOSE SUMMARY: Effective Dose: Approximately 7 mSv for a standard whole-body PET scan Organ Doses: Varies by organ, with higher doses typically to the bladder, liver, and brain COMPARISON: COMPARISON FROM CT, PET OR OTHER PERTINENT EXAMS: PET-CT 01/25/2025. FINDINGS: Physiologic uptake: There may be expected metabolic uptake within the brain, tongue and floor of the mouth and larynx/vocal cords, heart, marvin (many normal individuals have hilar uptake in less than 3 nodes with mildly avid hilar nodes less than 2.7 SUV), liver and spleen, system, and GI tract and symmetric muscle uptake. FDG AVID AND NON-AVID LESIONS. Reported avid SUV values (g/mL*) are maximum SUV. NECK: There are no significant neck abnormalities. CHEST: Chest wall- There are no significant chest wall abnormalities. No hypermetabolic breast nodule is seen. Axilla- There are no significant axillary abnormalities. Lung parenchyma- There are no significant lung parenchyma abnormalities. Mediastinum- There are no significant hilar or mediastinal adenopathy. Pleura- Small left and moderate right pleural effusions are seen. ABDOMEN: Stomach- No significant abnormalities. Liver- Multiple hepatic cysts are again seen, again most prominent in the left lobe of the liver. Cholelithiasis is again seen. Spleen- No significant abnormalities. Pancrease- No significant abnormalities. Kidneys- No significant abnormalities. Bowel- Normal bowel activity. Sutures are seen within or about the cecum. Spine- No significant abnormalities. PELVIS: Bowel- Normal physiologic bowel activity is identified. Masses- The left pelvic cyst is again seen. Due to adjacent urine within the left ureter, it is difficult to determine any interval change in the previously identified lateral wall mildly hypermetabolic nodule, though this area otherwise has a similar appearance to the prior study.. Bones- Degenerative changes of the spine are again seen. Grade 1 anterolisthesis of L4 upon L5 is noted. Multiple sclerotic foci within bones are seen, without associated significant hypermetabolic activity, however. There are no FDG avid lesions within the visualized portion of the axial skeleton. PET/PET/CT Tumor Base -Thigh Subs IMPRESSION: FDG avid- 1. Probable stability of the mildly hypermetabolic nodule in the lateral aspect of the left pelvic cyst, though exact comparison is difficult due to adjacent urine within the left ureter. 2. No new or worsened hypermetabolic focus is seen. Other: 1. Moderate right and mild left pleural effusions. 2. Cholelithiasis again noted. Please note the low-dose CT scan was performed to facilitate PET image reconstr uction and anatomic localization and does not replace a diagnostic CT. Any diagnostic CT requested and performed at the time of the PET will be reported separately. Reading Location: [place] [address]
== END | disposition home or self-care (01) ==
PROVIDERS: PCP Family Medicine; Referring Provider Internal Medicine Hematology & Oncology; Visit Provider Internal Medicine Hematology & Oncology
DX: C50.412 Malignant neoplasm of upper-outer quadrant of left female breast (principal); C78.2 Secondary malignant neoplasm of pleura; J91.0 Malignant pleural effusion; C79.51 Secondary malignant neoplasm of bone; C50.911 Malignant neoplasm of unspecified site of right female breast; Z17.0 Estrogen receptor positive status [ER+]; Z15.01 Genetic susceptibility to malignant neoplasm of breast; Z15.09 Genetic susceptibility to other malignant neoplasm
CPT/HCPCS: 78815; A9552

== ENCOUNTER 2025-02-21 11:05 | Emergency (ER) | payer MEDICARE, OTHER, SELFPAY ==
[2025-02-21 11:05] VITALS: BP 99/72; PULSE 95; RESP 14; TEMP 36.6; O2SAT 99; BMI 23.7
[2025-02-21 11:36] VITALS: BP 103/79; BP 104/65; BP 106/64; PULSE 74; PULSE 75; PULSE 87
[2025-02-21 12:04] LABS: Hematocrit 41.0 % (37-47); Hemoglobin 13.2 g/dL (12.0-15.0); Immature Granulocytes Count 0.030 X10^3/uL (0.0-0.0); Mean Corp Hgb Conc 32.2 g/dL (32-36); Mean Corpuscular Volume 99.0 fL (81-99); Mean Platelet Vol. 9.5 fl (6.2-12.0); NRBC Flagged by Analyzer 0 % (0-5); Platelet Count 192 K/mm3 (150-450); RBC Distribution Width CV 12.6 % (11.6-14.6); RBC Distribution Width SD 45.8 fl (35.1-43.9); Red Blood Count 4.14 M/mm3 (4.2-5.4); White Blood Count 6.9 K/mm3 (4.4-11.0)
[2025-02-21] MEDS: 0.9% Normal Saline (1000mL) 1,000 ML 1000 ML IV (12:12)
--- NOTE | 2025-02-21 12:30 | RAD_ITS ---
PROCEDURE: ACUTE ABDOMEN INC CHEST 02/21/2025 REASON FOR EXAM: PAIN Chronic constipation. TECHNIQUE: ACUTE ABDOMEN INC CHEST COMPARISON: Prior chest radiograph done earlier in the day. FINDINGS: Hardware: None Heart: The heart size is normal. Lungs: Status post right thoracentesis. Residual pleural-parenchymal changes seen at the right lung base. Bowel gas: Moderate amount of fecal material is seen in the colon. Free air: No free air. Calcifications: Surgical ramses are seen in the pelvis. Bones: Dextroscoliosis. Other: RAD/Acute Abdomen Inc Chest IMPRESSION: Moderate amount of fecal material is seen throughout the colon. Status post right thoracentesis with residual pleural-parenchymal changes at th e right lung base. Reading Location: [place] [address]
--- NOTE | 2025-02-21 12:30 | RAD_ITS ---
PROCEDURE: ACUTE ABDOMEN INC CHEST 02/21/2025 REASON FOR EXAM: PAIN Chronic constipation. TECHNIQUE: ACUTE ABDOMEN INC CHEST COMPARISON: Prior chest radiograph done earlier in the day. FINDINGS: Hardware: None Heart: The heart size is normal. Lungs: Status post right thoracentesis. Residual pleural-parenchymal changes seen at the right lung base. Bowel gas: Moderate amount of fecal material is seen in the colon. Free air: No free air. Calcifications: Surgical ramses are seen in the pelvis. Bones: Dextroscoliosis. Other: RAD/Acute Abdomen Inc Chest IMPRESSION: Moderate amount of fecal material is seen throughout the colon. Status post right thoracentesis with residual pleural-parenchymal changes at th e right lung base. Reading Location: [place] [address]
[2025-02-21 12:47] LABS: AST(SGOT) 27 U/L (<=31); Alanine Aminotransfer ALT/SGPT 17 U/L (<=34); Albumin, Serum 3.1 g/dL (3.4-4.8); Alkaline Phosphatase 69 U/L (35-104); Anion Gap 7 (5-15); BUN 15 mg/dL (4-19); BUN/Creat Ratio 18.6 RATIO (10-20); Calcium,Total 8.9 mg/dL (7.6-11.0); Carbon Dioxide 27.1 mmol/L (21.0-32.0); Chloride 101 mmol/L (98-108); Estimated Creatinine Clearance 58.88 ml/min (50-250); Globulin 2.5 g/dL (2.2-4.2); Glucose 116 mg/dL (70-99); Potassium 4.5 mmol/L (3.3-5.1)
--- NOTE | 2025-02-21 13:04 | EX.ED.DYSGE1 ---
HPI History of Present Illness Chief Complaint: Constipation Detail of Chief Complaint: Constipation for approximately 8 months Informant: patient and family Onset/Context/Timing Onset: Month(s) Context: Gradual Onset Timing: Continuous and Waxes and wanes Quality: Not had a bowel movement in several days. Location: GI Current Severity: Mild Maximum Severity: Moderate Worsened by: Problems with constipation since starting chemo therapy end of last year Relieved by: Took 9 laxative pills on Friday Associated Symptoms Associated Symptoms: No nausea vomiting or any other symptoms Narrative Narrative: Patient is a 69-year-old woman. She has history of chronic constipations since her recurrence of breast cancer and receiving chemo. Her oncologist is Dr. John Carranza. She has had problems with constipation for approximately 8 months. She has had weight loss. Weight loss is unintentional. She denies dysuria, frequency, urgency or hematuria. Since taking the 9 laxatives at once she has not had a bowel movement. She is still passing gas. She denies fever or chills. She denies cardiac or respiratory symptoms. Prior similar symptoms: Yes Recent Illness/Hospitalization: No PFSH [facility] Medical History BRCA2 gene mutation positive Pleural effusion, right Hypokalemia Respiratory insufficiency History of breast cancer Hx of ovarian cancer Elevated troponin Hypoxia Pulmonary emboli Fat necrosis due to trauma BOWEL RESECTION WITH ANASTOMOSIS LAPAROTOMY/RESECTION OF PELVIC MASS Arthritis Osteopenia Ovarian cancer Breast cancer, left breast Home Medications ?Medication ?Instructions ?Recorded ?Last Taken ?Type apixaban 5 mg tablet (Eliquis) 10 mg (2 x 5 mg) PO BID #68 tabs 03/14/24 02/21/25 Rx cinnamon bark 500 mg capsule 500 mg PO QDAY 09/01/24 02/21/25 History ginkgo biloba 40 mg tablet 40 mg PO TID 09/01/24 02/21/25 History glucosamine sulfate 1,000 mg tablet 1,000 mg PO QDAY 09/01/24 02/21/25 History lorazepam 0.5 mg tablet 0.5 mg PO Q8H PRN anxiety 09/01/24 02/21/25 History multivitamin 1 tab PO QAM 09/01/24 02/21/25 History turmeric 400 mg capsule 400 mg PO DAILY 09/01/24 02/20/25 History elacestrant 345 mg tablet (Orserdu) 345 mg PO QDAY 10/30/24 02/21/25 History calcium carbonate (Calcium 600) 600 mg PO DAILY 02/21/25 02/21/25 History linaclotide 72 mcg capsule 72 mcg PO 02/21/25 Unknown History (Linzess) vitamin D3 1,250 mcg (50,000 1 cap PO DAILY 02/21/25 02/21/25 History unit)-vitamin K2 200 mcg capsule (Decara K) zolpidem 10 mg tablet 10 mg PO QHS PRN insomnia 02/21/25 Unknown History Allergy/AdvReac Type Severity Reaction Status Date / Time acetaminophen (From Percocet) AdvReac Intermediate Nausea Verified 02/21/25 11:06 meperidine HCl (From Demerol) AdvReac Intermediate Nausea Verified 02/21/25 11:06 oxycodone (From Percocet) AdvReac Intermediate Nausea Verified 02/21/25 11:06 Family History Mother Skin cancer Pulmonary embolism Hypertension Father CVA (cerebral vascular accident) Surgical History History of lumpectomy History of resection of large bowel History of appendectomy History of total abdominal hysterectomy and bilateral salpingo-oophorectomy Social History Smoking Status: Never smoker second hand exposure: No alcohol intake: current alcohol intake frequency: a few times a month Alcohol type: wine substance use type: does not use caffeine: Yes what type of physical activity do you participate in: walking and running frequency: 5-6 times per week seatbelt use: always ROS ROS ED Constitutional Constitutional ED: Reports weight loss; Denies chills, fever(s), subjective or sweats Eyes Eyes: Denies blurry vision or change in vision ENT ENT ED: Denies ear pain or rhinorrhea Cardiovascular Cardiovascular: Denies chest pain, orthopnea, palpitations, paroxysmal nocturnal dyspnea or racing heartbeat Respiratory/Chest Respiratory/Chest: Denies cough, dyspnea, dyspnea on exertion, orthopnea or paroxysmal nocturnal dyspnea Gastrointestinal Gastrointestinal: Reports abdominal pain and constipation; Denies diarrhea, melena or vomiting Genitourinary Genitourinary ED: Denies dysuria, hematuria or urinary frequency Musculoskeletal Musculoskeletal: Denies back pain Integumentary Denies rash Neurologic Neurologic: Denies headache(s) or paresthesias Hematologic/Lymphatic Hematologic/Lymphatic: Reports systems reviewed and no addt'l complaints, except as documented and other Details: Patient is on an anticoagulant, apixaban. EXAM Physical Exam Const Vital Signs: 02/21/25 11:05 02/21/25 11:36 02/21/25 13:05 Temperature 98 F 97.8 F Temperature Source Temporal Oral Pulse Rate 95 73 Pulse Rate [Lying] 87 Pulse Rate [Sitting (for 1 minute prior to obtaining)] 75 Pulse Rate [Standing (for 1 minute prior to obtaining)] 74 Respiratory Rate 14 18 Blood Pressure 99/72 128/71 H Blood Pressure [Lying] 106/64 Blood Pressure [Sitting (for 1 minute prior to obtaining)] 103/79 Blood Pressure [Standing (for 1 minute prior to obtaining)] 104/65 Blood Pressure Mean 81 90 Blood Pressure Mean [Lying] 78 Blood Pressure Mean [Sitting (for 1 minute prior to obtaining)] 87 Blood Pressure Mean [Standing (for 1 minute prior to obtaining)] 78 Pulse Ox 99 97 Oxygen Delivery Method Room Air Room Air 02/21/25 13:10 Temperature 97.8 F Temperature Source Pulse Rate 73 Pulse Rate [Lying] Pulse Rate [Sitting (for 1 minute prior to obtaining)] Pulse Rate [Standing (for 1 minute prior to obtaining)] Respiratory Rate 18 Blood Pressure 128/71 H Blood Pressure [Lying] Blood Pressure [Sitting (for 1 minute prior to obtaining)] Blood Pressure [Standing (for 1 minute prior to obtaining)] Blood Pressure Mean 90 Blood Pressure Mean [Lying] Blood Pressure Mean [Sitting (for 1 minute prior to obtaining)] Blood Pressure Mean [Standing (for 1 minute prior to obtaining)] Pulse Ox 97 Oxygen Delivery Method Positive well developed Constitutional Narrative: Patient has a depressed mood and flat affect. Son gave her Ativan this morning. General Appearance ED: well developed and NAD; Negative for pallor HEENT Reports dry mucous membranes Mouth ED: Yes dry mucous membranes Mouth: dry mucous membranes Eyes PERRL and EOMs intact bilaterally General Eye ED: Negative for pale conjunctiva or scleral icterus Neck no lymphadenopathy, supple and no JVD Resp normal respiratory effort and clear to auscultation bilaterally Cardio regular rate, regular rhythm, S1 normal heart sound, S2 normal heart sound and no murmurs GI non-tender and no masses; Negative for non-distended or hepatosplenomegaly Auscultation: hypoactive bowel sounds Palpation: soft Back/Spine no CVA tenderness Extremity normal to inspection General Extremety ED: Negative for edema or tenderness General Extremity: Negative for edema Neuro oriented x3 and CN's II-XII intact bilaterally Sensorium / Orientation: alert Psych mental status grossly normal Skin no rashes or lesions noted, no wounds and No skin turgor normal General Skin Exam: Negative for jaundice or pallor MDM MDM MDM Narrative Medical decision making narrative: Patient with chronic constipation for the past several months. Patient exam is not concerning for obstruction or any intra-abdominal emergency. With history of recurrent breast cancer with metastasis to bone will obtain comprehensive metabolic panel to assess electrolytes, renal function, calcium and alkaline phosphatase. CBC was obtained shows white count differential and H&H. Abdominal series was obtained since her exam was benign other than tympany on percussion. Suspect she has significant stool. Doubt obstruction. However with her past history of ovarian cancer there is new to the entertained. Lab Data Attestation: I reviewed the patient's lab results. Lab results narrative: CBC is unremarkable. Comprehensive metabolic panel is unremarkable. Glucose is elevated 116. Calcium is normal. Albumin is low at 3.1. This would go along with her weight loss and malnourishment. Labs: Laboratory Results - last 24 hr 02/21/25 11:45 WBC 6.9 RBC 4.14 L Hgb 13.2 Hct 41.0 MCV 99.0 MCH 31.9 MCHC 32.2 RDW Std Deviation 45.8 H RDW Coeff of Michelle 12.6 Plt Count 192 MPV 9.5 Immature Gran % (Auto) 0.400 Neut % (Auto) 78.1 H Lymph % (Auto) 14.8 L [place] % (Auto) 5.8 Eos % (Auto) 0.6 Baso % (Auto) 0.3 Absolute Neuts (auto) 5.4 Absolute Lymphs (auto) 1.03 Nucleated RBC % 0 Sodium 135 Potassium 4.5 Chloride 101 Carbon Dioxide 27.1 Anion Gap 7 BUN 15 Creatinine 0.79 Estim Creat Clear Calc 58.88 Est GFR (MDRD) Non-Af 80 BUN/Creatinine Ratio 18.6 Glucose 116 H Calcium 8.9 Total Bilirubin 0.36 AST 27 ALT 17 Alkaline Phosphatase 69 Total Protein 5.6 L Albumin 3.1 L Globulin 2.5 Albumin/Globulin Ratio 1.2 Radiography Chest X-Ray - ED: Read by ED Physician (Abdominal series was obtained. This included a chest portion. There is a right pleural effusion which is chronic and essentially unchanged from prior. Abdominal portion reveals massive gas pattern with significant mount of fecal matter. There is independent reviewed interpreted by me at 1245.) Diagnostic Testing: Clinical Impression(s) from Imaging Studies Acute Abdomen Series 02/21/25 12:30 IMPRESSION: Moderate amount of fecal material is seen throughout the colon. Status post right thoracentesis with residual pleural-parenchymal changes at the right lung base. Reading Location: [place] [address] Treatment and Re-Evaluation :: Patient and son were informed of results. Plan is Metamucil twice a day for the next 3 days then once a day and then alternate between every other day day half cup to a cap of MiraLAX. Discharge Plan Triage Chief Complaint: Constipation ED Provider: Robin Copeland Dx/Rx/DC Orders Clinical Impression: Obstipation, Pleural effusion, right, Family history of ovarian cancer, History of breast cancer, Recurrent breast cancer Instructions: ED Constipation (Adult) Prescriptions: No Action lorazepam 0.5 mg tablet 0.5 mg PO Q8H PRN (Reason: anxiety) Patient Comments: [NO ORIGINAL SIG] turmeric 400 mg capsule 400 mg PO DAILY cinnamon bark 500 mg capsule 500 mg PO QDAY multivitamin Tablet 1 tab PO QAM glucosamine sulfate 1,000 mg tablet 1,000 mg PO QDAY Rx Instructions: administer with meals ginkgo biloba 40 mg tablet 40 mg PO TID Rx Instructions: give with meal/snack Orserdu 345 mg tablet 345 mg PO QDAY Rx Instructions: Swallow tablet(s) whole. Do not chew, crush, or split prior to swallowing. Do not take any tablets that are broken, cracked, or that look damaged. zolpidem 10 mg tablet 10 mg PO QHS PRN (Reason: insomnia) Linzess 72 mcg capsule 72 mcg PO Decara K 1,250-200 mcg capsule 1 cap PO DAILY calcium carbonate [Calcium 600] 600 mg calcium (1,500 mg) tablet 600 mg PO DAILY Eliquis 5 mg tablet 10 mg PO BID Qty: 68 0RF Rx Instructions: 2 tabs twice a day for a total of 13 doses starting tonight, then decrease the dose to 5 mg twice a day Primary Care Provider: Elpidio Michaud Referrals: Elpidio Michaud MD [Primary Care Provider] - John Albright DO [Med Staff - Active Staff] - 1 Week if not improving Activity Restrictions/Additional Instructions: Recommend MiraLAX in the morning and at night for the next 3 days then recommend 1 cap daily. If your bowels are moving more than you would like or anticipate you may cut back to half a cap daily or half a cap on odd days and full On even days. Print Language: Georgian Disposition Disposition: Home, Self Care Discharge Date/Time: 02/21/25 13:15
[2025-02-21 13:05] VITALS: BP 128/71; PULSE 73; RESP 18; TEMP 36.6; O2SAT 97
[2025-02-21 13:10] VITALS: BP 128/71; PULSE 73; RESP 18; TEMP 36.6; O2SAT 97
== END 2025-02-21 13:15 | disposition home or self-care (01) ==
PROVIDERS: Emergency Provider Emergency Medicine; PCP Family Medicine; Visit Provider Emergency Medicine
DX: K59.00 Constipation, unspecified (principal); C50.919 Malignant neoplasm of unspecified site of unspecified female breast; J90 Pleural effusion, not elsewhere classified; Z86.711 Personal history of pulmonary embolism; Z79.01 Long term (current) use of anticoagulants
CPT/HCPCS: 74022; 80053; 85025; 96360; 99284; A4216

== ENCOUNTER → 2025-02-21 | Outpatient (CLI) | payer MEDICARE, OTHER, SELFPAY ==
--- NOTE | 2025-02-21 10:17 | US_ITS ---
PROCEDURE: THORACENTESIS W US 02/21/2025 REASON FOR EXAM: MALIGNANT PLEURAL EFFUSION TECHNIQUE: THORACENTESIS W US. The procedure as well as the benefits and possible complications including infection, bleeding and pneumothorax were explained to the patient. Informed consent was obtained. The overlying skin was prepped and draped in usual sterile fashion. Following local anesthetic application, a 5 Polish catheter was placed into the right pleural cavity. Fluid was drained. A total of 970 mL of dark yellow fluid was aspirated. The patient tolerated the procedure well. COMPARISON: Prior study dated February 14 2025. FINDINGS: Thoracentesis with removal of 970 mL of dark yellow colored fluid. US/Thoracentesis W US IMPRESSION: Successful right thoracentesis. No immediate complication noted. The patient tolerated the procedure well. Reading Location: [place] [address]
[2025-02-21] MEDS: Lidocaine 2% (20 ml mdv) 20 ML Vial INFILT (10:41)
--- NOTE | 2025-02-21 10:50 | RAD_ITS ---
EXAM: Chest AP inspiration expiration views following right thoracentesis. CLINICAL HISTORY: Recurrent right pleural effusion. COMPARISON: Prior study dated February 03, 2025. TECHNIQUE: AP inspiration expiration views. FINDINGS: No evidence of pneumothorax following the right thoracentesis. Residual pleural-parenchymal changes at the right lung base. RAD/Chest Insp/Exp 2 View IMPRESSION: No evidence of pneumothorax following the right thoracentesis. Residual pleural-parenchymal changes at the right lung base. Reading Location: [facility]
[2025-02-21 11:10] VITALS: BP 124/84; PULSE 107; RESP 18; O2SAT 94
[2025-02-21 11:11] VITALS: BP 121/71; PULSE 97; RESP 18; O2SAT 95
== END | disposition home or self-care (01) ==
LOC: US 10:15
PROVIDERS: PCP Family Medicine; Referring Provider Internal Medicine Hematology & Oncology; Visit Provider Internal Medicine Hematology & Oncology
DX: J90 Pleural effusion, not elsewhere classified (principal)
CPT/HCPCS: 32555; 71046

== ENCOUNTER → 2025-02-28 | Outpatient (CLI) | payer MEDICARE, OTHER, SELFPAY ==
--- NOTE | 2025-02-28 10:24 | US_ITS ---
PROCEDURE: THORACENTESIS W US 02/28/2025 REASON FOR EXAM: MALIGNANT PLEURAL EFFUSION TECHNIQUE: THORACENTESIS W US Ultrasound-guided right thoracentesis FINDINGS: Procedure: Following informed consent, and using standard sterile technique, an ultrasound- guided right thoracentesis was performed via a posterolateral approach. 2% lidocaine local anesthesia was followed by placement of a 5 Ecuadorean catheter into the pleural fluid collection. Approximately 1300 mL clear light jimmie fluid was successfully removed. No complication was encountered, in the patient left the department in good condition, without significant complaint. US/Thoracentesis W US IMPRESSION: Successful right sided ultrasound-guided therapeutic thoracentesis. Reading Location: [place] [address]
[2025-02-28 11:09] VITALS: BP 112/67; PULSE 85; RESP 16; TEMP 36.8; O2SAT 96
[2025-02-28 11:15] VITALS: BP 120/72; PULSE 83; RESP 16; O2SAT 96
[2025-02-28] MEDS: Lidocaine 2% (20 ml mdv) 20 ML Vial INFILT (11:18)
[2025-02-28 11:22] VITALS: BP 101/64; PULSE 85; RESP 16; O2SAT 95
[2025-02-28 11:25] VITALS: BP 112/62; PULSE 90; RESP 16; O2SAT 95
[2025-02-28 11:30] VITALS: BP 111/61; PULSE 92; RESP 16; O2SAT 96
[2025-02-28 11:35] VITALS: BP 100/64; PULSE 92; RESP 16; O2SAT 96
== END | disposition home or self-care (01) ==
LOC: US 10:23
PROVIDERS: PCP Family Medicine; Referring Provider Internal Medicine Hematology & Oncology; Visit Provider Internal Medicine Hematology & Oncology
DX: J90 Pleural effusion, not elsewhere classified (principal)
CPT/HCPCS: 32555

== ENCOUNTER → 2025-03-07 | Outpatient (CLI) | payer MEDICARE, OTHER, SELFPAY ==
--- NOTE | 2025-03-07 10:14 | US_ITS ---
PROCEDURE: THORACENTESIS W US 03/07/2025 REASON FOR EXAM: MALIGNANT PE TECHNIQUE: THORACENTESIS W US FINDINGS: Procedure: Following informed consent, and using standard sterile technique, an ultrasound- guided right thoracentesis was performed via a posterolateral approach. 2% lidocaine local anesthesia was followed by placement of a 5 Belizean catheter into the right pleural fluid collection. Approximately 1500 mL clear light jimmie fluid was successfully removed. No complication was a current, in the patient left the department in good condition without significant complaint. US/Thoracentesis W US IMPRESSION: Successful ultrasound-guided right thoracentesis. Reading Location: [place] [address]
[2025-03-07 10:34] VITALS: BP 139/66; PULSE 86; RESP 16; O2SAT 95
[2025-03-07] MEDS: Lidocaine 2% (20 ml mdv) 20 ML Vial INFILT (10:44)
[2025-03-07 10:45] VITALS: BP 122/45; PULSE 80; RESP 16; O2SAT 96
[2025-03-07 10:55] VITALS: BP 102/73; PULSE 89; RESP 16; O2SAT 96
[2025-03-07 11:00] VITALS: BP 118/60; PULSE 87; RESP 16; O2SAT 96
== END | disposition home or self-care (01) ==
LOC: US 10:14
PROVIDERS: PCP Family Medicine; Referring Provider Internal Medicine Hematology & Oncology; Visit Provider Internal Medicine Hematology & Oncology
DX: C50.911 Malignant neoplasm of unspecified site of right female breast (principal); C78.2 Secondary malignant neoplasm of pleura; J91.0 Malignant pleural effusion
CPT/HCPCS: 32555

== ENCOUNTER → 2025-03-15 | Outpatient (CLI) | payer MEDICARE, OTHER, SELFPAY ==
--- NOTE | 2025-03-15 11:46 | US_ITS ---
PROCEDURE: THORACENTESIS W US 03/15/2025 REASON FOR EXAM: MALIGNANT PLEURAL EFFUSION TECHNIQUE: THORACENTESIS W US The procedure as well as the benefits and possible complications including infection and bleeding as well as pneumothorax were explained to the patient. Informed consent was obtained. The overlying skin was prepped and draped in the usual sterile fashion. Following local anesthetic application, a 5 Korean catheter was placed into the right pleural cavity. 1170 mL of jimmie colored fluid was aspirated. The patient tolerated the procedure well. COMPARISON: February 28, 2025 FINDINGS: Right thoracentesis with removal of 1170 mL of jimmie colored fluid. US/Thoracentesis W US IMPRESSION: Successful ultrasound-guided right thoracentesis. The patient tolerated the procedure well. No complication noted at this time. Reading Location: [place] [address]
[2025-03-15] MEDS: Lidocaine 2% (20 ml mdv) 20 ML Vial INFILT (12:05)
--- NOTE | 2025-03-15 12:10 | RAD_ITS ---
EXAM: Inspiration expiration views following a right thoracentesis. CLINICAL HISTORY: Right thoracentesis. COMPARISON: Prior study dated February 21, 2025. TECHNIQUE: Inspiration expiration views were obtained. FINDINGS: No evidence of pneumothorax. Residual pleural-parenchymal changes in the right hemithorax. RAD/Chest Insp/Exp 2 View IMPRESSION: No evidence of pneumothorax following the right thoracentesis. Mild residual pleural-parenchymal changes at the right lung base. Reading Location: [facility]
[2025-03-15 12:15] VITALS: BP 120/81; PULSE 87; RESP 18; O2SAT 94
[2025-03-15 12:25] VITALS: BP 112/77; PULSE 90; RESP 18; O2SAT 94
== END | disposition home or self-care (01) ==
LOC: US 11:44
PROVIDERS: PCP Family Medicine; Referring Provider Internal Medicine Hematology & Oncology; Visit Provider Internal Medicine Hematology & Oncology
DX: C50.911 Malignant neoplasm of unspecified site of right female breast (principal); C78.2 Secondary malignant neoplasm of pleura; J91.0 Malignant pleural effusion
CPT/HCPCS: 32555; 71046

== ENCOUNTER → 2025-03-21 | Outpatient (CLI) | payer MEDICARE, OTHER, SELFPAY ==
--- NOTE | 2025-03-21 10:20 | US_ITS ---
PROCEDURE: THORACENTESIS W US 03/21/2025 REASON FOR EXAM: PE TECHNIQUE: THORACENTESIS W US FINDINGS: Procedure: Following informed consent, and using standard sterile technique, an ultrasound- guided right thoracentesis was performed via a posterior approach. 2% lidocaine local anesthesia was followed by placement of a 5 Ecuadorean Yueh catheter into the fluid collection. Approximately 1090 mL of clear light jimmie fluid was successfully removed. No complication was encountered, in the patient left the department in good condition without significant complaint. US/Thoracentesis W US IMPRESSION: Successful ultrasound-guided right thoracentesis. Reading Location: [place] [address]
[2025-03-21 10:52] VITALS: BP 126/78; PULSE 82; RESP 16; TEMP 36.9; O2SAT 96
[2025-03-21] MEDS: Lidocaine 2% (20 ml mdv) 20 ML Vial INFILT (10:55)
[2025-03-21 10:59] VITALS: BP 122/69; PULSE 77; RESP 18; O2SAT 95
[2025-03-21 11:02] VITALS: BP 126/66; PULSE 81; RESP 16; O2SAT 96
[2025-03-21 11:05] VITALS: BP 136/74; PULSE 83; RESP 16; O2SAT 96
[2025-03-21 11:08] VITALS: BP 132/76; PULSE 91; RESP 16; O2SAT 97
[2025-03-21 11:10] VITALS: BP 132/77; PULSE 87; RESP 18; O2SAT 94
== END | disposition home or self-care (01) ==
LOC: US 10:15
PROVIDERS: PCP Family Medicine; Referring Provider Internal Medicine Hematology & Oncology; Visit Provider Internal Medicine Hematology & Oncology
DX: C50.911 Malignant neoplasm of unspecified site of right female breast (principal); C78.2 Secondary malignant neoplasm of pleura; J91.0 Malignant pleural effusion
CPT/HCPCS: 32555

== ENCOUNTER → 2025-03-29 | Outpatient (CLI) | payer MEDICARE, OTHER, SELFPAY ==
[2025-03-29 10:40] VITALS: BP 134/75; PULSE 79; RESP 18; TEMP 36.9; O2SAT 96
[2025-03-29 10:45] VITALS: BP 120/69; PULSE 77; RESP 18; O2SAT 96
--- NOTE | 2025-03-29 10:45 | RAD_ITS ---
PROCEDURE: CHEST INSP/EXP 2 VIEW 03/29/2025 REASON FOR EXAM: POST THORACENTESIS TECHNIQUE: Procedure Code: [id number] Modality: DX Procedure: CHEST INSP/EXP 2 VIEW COMPARISON: Prior study dated March 15, 2025. FINDINGS: The patient is status post right thoracentesis. No evidence of pneumothorax. Small residual pleural-parenchymal changes persist at the right lung base. Blunting of the left costophrenic angle. RAD/Chest Insp/Exp 2 View IMPRESSION: No evidence of pneumothorax on the immediate post right thoracentesis examinati on. Reading Location: [place] [address]
[2025-03-29] MEDS: Lidocaine 2% (20 ml mdv) 20 ML Vial INFILT (10:46)
[2025-03-29 10:53] VITALS: BP 128/69; PULSE 77; RESP 18; O2SAT 95
[2025-03-29 11:00] VITALS: BP 118/68; PULSE 75; RESP 18; O2SAT 97
--- NOTE | 2025-03-29 11:05 | OP.PCM_ITS ---
Problems Associated Problem List Diagnoses (1) Pleural effusion, right: Procedures Radiology Radiology US Procedures: 82016 Thoracentesis Operative Report (Standard) Operative Information Date of Procedure: 03/29/25 Pre-Operative Diagnosis: Pleural effusion Post-Operative Diagnosis: Pleural effusion Surgery/Procedure Performed: Ultrasound-guided thoracentesis epidemiology intern: No Type of Anesthesia: Local Procedure Start Time: 10:42 Procedure Stop Time: 10:56 Select all DRAINS/GRAFTS/IMPLANTS that apply: None Estimated Blood Loss: 0 Specimen collected: No Description of surgery: PROCEDURE: Ultrasound Guided Thoracentesis, right ORDERING PROVIDER: Dr. Albright INDICATION: Female, 69 years old. Pleural effusion. PROVIDER: LUPIS Mitchell PROCEDURE: The risks, benefits, and alternatives to the procedure were explained to the patient. The specific risks of bleeding, infection, and pneumothorax requiring chest tube insertion were discussed and accepted. Written informed consent was obtained. The patient was placed in the sitting, upright position. Ultrasonographic evaluation of the bilateral lower pleural spaces was carried out. An adequate pocket was identified in the right lower pleural space. The overlying skin was prepped with chlorhexidine and draped in sterile fashion. 2 % lidocaine was administered subcutaneously for local anesthesia. Under ultrasound guidance, a 5-[place] thoracentesis needle/catheter system was advanced into the right posterior lower pleural fluid collection. 870 ml of clear light yellow colored fluid was drained. The catheter was removed, and a sterile dressing was applied. The patient tolerated the procedure well without any immediate complications. A chest x-ray was ordered. There was no evidence of pneumothorax. IMPRESSION: Successful ultrasound guided thoracentesis of right pleural effusion. Surgical Findings: None Complications Complications: No
== END | disposition home or self-care (01) ==
LOC: US 10:17
PROVIDERS: PCP Family Medicine; Referring Provider Internal Medicine Hematology & Oncology; Visit Provider Internal Medicine Hematology & Oncology
DX: C50.911 Malignant neoplasm of unspecified site of right female breast (principal); C78.2 Secondary malignant neoplasm of pleura; J91.0 Malignant pleural effusion
CPT/HCPCS: 32555; 71046

== ENCOUNTER → 2025-04-04 | Outpatient (CLI) | payer MEDICARE, OTHER, SELFPAY ==
--- NOTE | 2025-04-04 11:49 | US_ITS ---
PROCEDURE: THORACENTESIS W US 04/04/2025 REASON FOR EXAM: MALIGNANT PE TECHNIQUE: THORACENTESIS W US. The procedure as well as the benefits and possible complications including infection, bleeding and pneumothorax were explained to the patient. Informed consent was obtained. The skin overlying the right pleural space was prepped and draped in usual sterile fashion. Following local anesthetic application, a 5 Cymraes catheter was placed into the pleural cavity. 880 cc of jimmie colored fluid was aspirated. The patient tolerated the procedure well. COMPARISON: Prior study dated March 21, 2025. FINDINGS: Successful right thoracentesis. US/Thoracentesis W US IMPRESSION: Successful right thoracentesis. The patient tolerated the procedure well. 880 mL jimmie colored fluid was aspirated. Reading Location: [facility]-
[2025-04-04] MEDS: Lidocaine 2% (20 ml mdv) 20 ML Vial INFILT (12:10)
--- NOTE | 2025-04-04 12:20 | RAD_ITS ---
PROCEDURE: CHEST INSP/EXP 2 VIEW 04/04/2025 REASON FOR EXAM: POST THORA TECHNIQUE: Procedure Code: RADCXRINSPEXP Modality: DX Procedure: CHEST INSP/EXP 2 VIEW Inspiration expiration views were obtained following the right thoracentesis. COMPARISON: Prior study dated March 29, 2025. FINDINGS: The patient is status post right thoracentesis. No evidence of pneumothorax. Mild residual pleural-parenchymal changes. RAD/Chest Insp/Exp 2 View IMPRESSION: No evidence of pneumothorax following the right thoracentesis. Reading Location: [place] [address]
[2025-04-04 12:52] VITALS: BP 131/79; PULSE 93; RESP 18; O2SAT 96
[2025-04-04 12:54] VITALS: BP 111/64; PULSE 87; RESP 18; O2SAT 96
== END | disposition home or self-care (01) ==
LOC: US 11:48
PROVIDERS: PCP Family Medicine; Referring Provider Internal Medicine Hematology & Oncology; Visit Provider Internal Medicine Hematology & Oncology
DX: C50.911 Malignant neoplasm of unspecified site of right female breast (principal); C78.2 Secondary malignant neoplasm of pleura; J91.0 Malignant pleural effusion
CPT/HCPCS: 32555; 71046

== ENCOUNTER → 2025-04-11 | Outpatient (CLI) | payer MEDICARE, OTHER, SELFPAY ==
--- OUTSIDE RECORDS SUMMARY | 2025-04-04 11:31 | XMS RPT_ITS ---
Author Name Auto Generated Organization OH[facility] Care Team Providers Care Global Project Manager Name Role Phone MASCI, JOHN A Referring Unavailable MICHAUD, TEETEE A Primary Care Unavailable MASCI, JOHN A Referring Unavailable MICHAUD, TEETEE A Primary Care Unavailable MICHAUD, TEETEE A Primary Care Unavailable GONZALES, GENE Referring Unavailable MICHAUD, TEETEE A Primary Care Unavailable GONZALES, SWAPNIL Attending Unavailable MICHAUD, TEETEE A Primary Care Unavailable MICHAUD, TEETEE A Primary Care Unavailable JAMI PEARCE Attending Unavailable MICHAUD, TEETEE A Primary Care Unavailable MASCI, JOHN A Referring Unavailable MICHAUD, TEETEE A Primary Care Unavailable JESSIE CLAYTON Attending Unavailable GONZALES, GENE Referring Unavailable MICHAUD, TEETEE A Primary Care Unavailable MICHAUD, TEETEE A Primary Care Unavailable MASCI, JOHN A Referring Unavailable MICHAUD, TEETEE A Primary Care Unavailable LIZET AGUDELO Attending Unavailable GONZALES, GENE Referring Unavailable MICHAUD, TEETEE A Primary Care Unavailable MASCI, JOHN A Referring Unavailable MICHAUD, TEETEE A Primary Care Unavailable MASCI, JOHN A Attending Unavailable MICHAUD, TEETEE A Primary Care Unavailable KELY SOTOMAYOR Attending Unavailable MICHAUD, TEETEE A Primary Care Unavailable MICHAUD, TEETEE A Primary Care Unavailable MASCI, JOHN A Referring Unavailable MICHAUD, TEETEE A Primary Care Unavailable MASCI, OJHN A Referring Unavailable MICHAUD, TEETEE A Primary Care Unavailable MASCI, JOHN A Referring Unavailable MICHAUD, TEETEE A Primary Care Unavailable MASCI, JOHN A Attending Unavailable MASCI, JOHN A Referring Unavailable MICHAUD, TEETEE A Primary Care Unavailable MASCI, JOHN A Referring Unavailable MICHAUD, TEETEE A Primary Care Unavailable DIANNE CASH Referring Unavailable MICHAUD, TEETEE A Primary Care Unavailable LIZET AGUDELO Attending Unavailable GONZALES, GENE Referring Unavailable MICHAUD, TEETEE A Primary Care Unavailable MICHAUD, TEETEE A Primary Care Unavailable MASCI, JOHN A Referring Unavailable MICHAUD, TEETEE A Primary Care Unavailable JESSIE CLAYTON Attending Unavailable GONZALES, GENE Referring Unavailable MICHAUD, TEETEE A Primary Care Unavailable LIZET AGUDELO Attending Unavailable KAMVOURIS, LIZET Referring Unavailable MICHAUD, TEETEE A Primary Care Unavailable MICHAUD, TEETEE A Primary Care Unavailable KELY SOTOMAYOR Attending Unavailable MICHAUD, TEETEE A Primary Care Unavailable KAMVOURIS, LIZET Referring Unavailable MICHAUD, TEETEE A Primary Care Unavailable KAMVOURIS, LIZET Referring Unavailable MICHAUD, TEETEE A Primary Care Unavailable GONZALES, GENE Attending Unavailable KAMVOURIS, LIZET Referring Unavailable MICHAUD, TEETEE A Primary Care Unavailable MASCI, JOHN A Referring Unavailable MICHAUD, TEETEE A Primary Care Unavailable JAMI PEARCE Attending Unavailable MICHAUD, TEETEE A Primary Care Unavailable ZACARIAS, JAMI Referring Unavailable MICHAUD, TEETEE A Primary Care Unavailable MASCI, JOHN A Referring Unavailable MICHAUD, TEETEE A Primary Care Unavailable GONZALES, GENE Admitting Unavailable GONZALES, GENE Attending Unavailable GONZALES, GENE Referring Unavailable MICHAUD, TEETEE A Primary Care Unavailable GONZALES, GENE Referring Unavailable MICHAUD, TEETEE A Primary Care Unavailable MASCI, JOHN A Attending Unavailable MICHAUD, TEETEE A Primary Care Unavailable MICHAUD, TEETEE A Primary Care Unavailable MASCI, JOHN A Attending Unavailable MICHAUD, TEETEE A Primary Care Unavailable KAMVOJOSES, LIZET Attending Unavailable KAMVOURIS, LIZET Referring Unavailable MICHAUD, TEETEE A Primary Care Unavailable GONZALES, GENE Referring Unavailable MICHAUD, TEETEE A Primary Care Unavailable GONZALES, GENE Referring Unavailable MICHAUD, TEETEE A Primary Care Unavailable MASCI, JOHN A Referring Unavailable MICHAUD, TEETEE A Primary Care Unavailable MASCI, JOHN A Attending Unavailable MICHAUD, TEETEE A Primary Care Unavailable JESSIE CLAYTON Attending Unavailable MICHAUD, TEETEE A Primary Care Unavailable MICHAUD, TEETEE A Primary Care Unavailable MASCI, JOHN A Referring Unavailable MICHAUD, TEETEE A Primary Care Unavailable KAMVOURIS, LIZET Referring Unavailable MICHAUD, TEETEE A Primary Care Unavailable MASCI, JOHN A Referring Unavailable MICHAUD, TEETEE A Primary Care Unavailable MASCI, JOHN A Referring Unavailable MICHAUD, TEETEE A Primary Care Unavailable GONZALES, GENE Referring Unavailable MICHAUD, TEETEE A Primary Care Unavailable GONZALES, GENE Referring Unavailable MICHAUD, TEETEE A Primary Care Unavailable GONZALES, GENE Referring Unavailable MICHAUD, TEETEE A Primary Care Unavailable MASCI, JOHN A Attending Unavailable MICHAUD, TEETEE A Primary Care Unavailable MICHAUD, TEETEE A Primary Care Unavailable MICHAUD, TEETEE A Primary Care Unavailable MICHAUD, TEETEE A Primary Care Unavailable MICHAUD, TEETEE A Primary Care Unavailable MASCI, JOHN A Attending Unavailable MASCI, JOHN A Referring Unavailable TEETEE MICHAUD A Primary Care Unavailable TEETEE MICHAUD A Primary Care Unavailable JESSIE CLAYTON Attending Unavailable JOHN ALBRIGHT Referring Unavailable MICHAUD, TEETEE A Primary Care Unavailable GONZALES, GENE Admitting Unavailable GONZALES, GENE Attending Unavailable GONZALES, GENE Referring Unavailable MICHAUD, TEETEE A Primary Care Unavailable MICHAUD, TEETEE A Primary Care Unavailable JOHN ALBRIGHT Attending Unavailable PROVIDER, UNKNOWN Referring Unavailable MICHAUD, TEETEE A Primary Care Unavailable PROBLEMS DATE TYPE CONDITION / CODE ATTENDING STATUS [facility] 03/28/2025 Active Metastasis to br ain (HCC) / C79.31(ICD-10) NA [facility] 02/08/2025 Active Insomnia due to medical condition / G47.01(ICD-10) JOHN ALBRIGHT Active [facility] 02/08/2025 Active Malignant neopla sm of female breast, unspecified estrogen receptor status, unspecified laterality, unspecified site of breast (HCC) / C50.919(ICD-10) JOHN ALBRIGHT Active [facility] 02/08/2025 Active 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) / C50.911(ICD-10) NA [facility] 02/08/2025 Active 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) / C78.2(ICD-10) NA [facility] 01/20/2025 Active Leptomeningeal e nhancement on MRI of brain / R90.89(ICD-10) NA Active [facility] 05/04/2024 Active Malignant pleura l effusion (HCC) / 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.0(ICD-10) JOHN ALBRIGHT Active [facility] 04/07/2024 Active Other chronic pu lmonary embolism without acute cor pulmonale (HCC) / I27.82(ICD-10) JOHN ALBRIGHT Active [facility] 10/14/2024 Active Constipation, un specified constipation type / K59.00(ICD-10) NA [facility] 10/14/2024 Active Abdominal bloati ng / R14.0(ICD-10) NA Active [facility] 10/07/2024 Active Altered mental s tatus, unspecified altered mental status type / R41.82(ICD-10) NA Active [facility] 10/07/2024 Active Secondary malign ant neoplasm of brain (HCC) / C79.31(ICD-10) NA [facility] 05/04/2024 Active Carcinoma of lef t breast metastatic to bone (HCC) / C50.912(ICD-10) NA [facility] 05/04/2024 Active Carcinoma of lef t breast metastatic to bone (HCC) / C79.51(ICD-10) [facility] 09/21/2024 Active Sequelae of protein-calorie malnutrition (HCC) / E64.0(ICD-10) [facility] 08/19/2024 Active Chemotherapy Geo atment / UNK(Unknown) [facility] 04/07/2024 Active Multiple subsegm ental pulmonary emboli without acute cor pulmonale (HCC) / I26.94(ICD-10) [facility] 08/16/2024 Active Tachycardia / R00.0(ICD-10) [facility] 06/07/2024 Active Malignant neopla sm metastatic to brain (HCC) / C79.31(ICD-10) [facility] 05/04/2024 Active Malignant pleura l effusion / J91.0(ICD-10) [facility] 04/07/2024 Active BRCA2 gene mutat ion positive / Z15.01(ICD-10) [facility] 04/07/2024 Active BRCA2 gene mutat ion positive / Z15.09(ICD-10) [facility] 04/08/2016 Active 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, estrogen receptor positive (HCC) / C50.412(ICD-10) [facility] 04/08/2016 Active 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, estrogen receptor positive (HCC) / Z17.0(ICD-10) [facility] 07/21/2024 Active Encounter for ed ucation / Z71.9(ICD-10) [facility] PROCEDURES No Procedure Records Found RESULTS CANCER AG15-3 [facility] Collected: 11:34 AM Status: F Source: [facility] Order Comment: Specimen Type : BLOOD SPECIMEN Ordering Facility: [facility] Address: [address] [place] [address] TYPE CODE TESTS RESULT OUT OF RANGE REFERENCE UNITS LAB 6875-9([facility]) Cancer Ag15-3 SerPl-aCnc 396.6 High <26.0 U/mL Result Comment: The CA 15-3 test methodology used is the Electrochemiluminescence Immunoassay by [employer]. Results obtained with different methods or kits cannot be used interchangeably. Performed By: #### [id number] ## ## [facility] CLIA [id number] [address] [place] [address] OF [facility] COMP METAB 2000 PNL SERPL Collected: 11:34 AM Status: F Source: [facility] Order Comment: Specimen Type : BLOOD SPECIMEN Ordering Facility: [facility] Address: [address] [place] [address] TYPE CODE TESTS RESULT OUT OF RANGE REFERENCE UNITS LAB 2885-2(LOINC) Prot SerPl-mCnc 5.6 Low 6.3-8.0 g/dL LAB 1751-7(LOINC) Albumin SerPl-mCnc 3.2 Low 3.9-4.9 g/dL LAB 24706-8(LOINC) Calcium SerPl-mCnc 9.3 8.5-10.2 mg/dL LAB 1975-2(LOINC) Bilirub SerPl-mCnc 0.5 0.2-1.3 mg/dL LAB 6768-6(LOINC) ALP SerPl-cCnc 82 34-123 U/L LAB 1920-8(LOINC) AST SerPl-cCnc 18 13-35 U/L LAB 1742-6(LOINC) ALT SerPl-cCnc 11 7-38 U/L LAB 2345-7(LOINC) Glucose SerPl-mCnc 147 High 74-99 mg/dL Result Comment: The [place] Diabetes Association (ADA) provides guidance for cutoff values for fasting glucose and random glucose. The ADA defines fasting as no caloric intake for at least 8 hours. Fasting plasma glucose results between 100 to 125 mg/dL indicate increased risk for diabetes (prediabetes). Fasting plasma glucose results greater than or equal to 126 mg/dL meet the criteria for diagnosis of diabetes. In the absence of unequivocal hyperglycemia, results should be confirmed by repeat testing. In a patient with classic symptoms of hyperglycemia or hyperglycemic crisis, random plasma glucose results greater than or equal to 200 mg/dL meet the criteria for diagnosis of diabetes. Reference: Standards of Medical Care in Diabetes 2016, [place] Diabetes Association. Diabetes Care. 2016.39(Suppl 1). LAB 3094-0(LOINC) BUN SerPl-mCnc 14 7-21 mg/dL LAB 2160-0(LOINC) Creat SerPl-mCnc 0.76 0.58-0.96 mg/dL LAB 2951-2(LOINC) Sodium SerPl-sCnc 138 136-144 mmol/L LAB 2823-3(LOINC) Potassium SerPl-sCnc 4.0 3.7-5.1 mmol/L LAB 2075-0(LOINC) Chloride SerPl-sCnc 104 98-107 mmol/L LAB 2027-9(LOINC) CO2 SerPl-sCnc 23 22-30 mmol/L LAB 65745-3(LOINC) Anion Gap SerPl-sCnc 11 8-15 mmol/L LAB 66829-7(LOINC) eGFRcr SerPlBld CKD-EPI 2020 84 >=60 mL/min/1. 73m??? Result Comment: Estimated Gl omerular Filtration Rate (eGFR) is calculated using the 2020 CKD-EPI creatinine equation. This equation utilizes serum creatinine, sex, and age as parameters. The creatinine assay has traceable calibration to isotope dilution-mass spectrometry. Refer to KDIGO guidelines for clinical interpretation. In patients with unstable renal function, e.g. those with acute kidney injury, the eGFR may not accurately reflect actual GFR. Performed By: #### 21024-4 # ### [facility] CLIA [id number] [address] [place] [address] [place] CBC W AUTO DIFF BLD Collected: 04/04/2025 11:34 AM S tatus: F Source: [facility] Order Comment: Specimen Type : BLOOD SPECIMEN Ordering Facility: [facility] Address: [address] [place] [address] TYPE CODE TESTS RESULT OUT OF RANGE REFERENCE UNITS LAB 6690-2(INC) WBC # Bld Auto 7.16 3.70-11.00 k/uL LAB 789-8(INC) RBC # Bld Auto 4.26 3.90-5.20 m/ uL LAB 718-7([facility]) Hgb Bld-mCnc 13.6 11.5-15.5 g/dL LAB 4544-3([facility]) Hct VFr Bld Auto 40.7 36.0-46.0 % LAB 787-2([facility]) MCV RBC Auto 95.5 80.0-100.0 fL LAB 785-6([facility]) MCH RBC Qn Auto 31.9 26.0-34.0 p g LAB 786-4([facility]) MCHC RBC Auto-mCnc 33.4 30.5-36.0 g/dL LAB 69938-0([facility]) RDW RBC-Rto 13.4 11.5-15.0 % LAB 777-3([facility]) Platelet # Bld Auto 216 150-400 k/uL LAB 53307-9([facility]) PMV Bld Auto 9.5 9.0-12.7 fL LAB 770-8([facility]) Neutrophils/leuk NFr Bld Auto 75.0 % LAB 751-8([facility]) Neutrophils # Bld Auto 5.36 1.45-7.50 k/uL LAB 736-9([facility]) Lymphocytes/leuk NFr Bld Auto 18.4 % LAB 731-0([facility]) Lymphocytes # Bld Auto 1.32 1.00-4.00 k/uL LAB 5905-5([facility]) Monocytes/leuk NFr Bld Auto 5.4 % LAB 742-7(INC) Monocytes # Bld Auto 0.39 <0.87 k/uL LAB 713-8(INC) Eosinophil/leuk NFr Bld Auto 0.4 % LAB 711-2(INC) Eosinophil # Bld Auto 0.03 <0.46 k/uL LAB 706-2(INC) Basophils/leuk NFr Bld Auto 0.4 % LAB 704-7(INC) Basophils # Bld Auto 0.03 <0.11 k/uL LAB 82860-2(LOINC) Imm Granulocytes/jose k NFr Bld Auto 0.4 % LAB 14057-0(LOINC) Imm Granulocytes # Bld Auto 0.03 <0.10 k/uL LAB 56664-2(LOINC) nRBC/100 WBC Bld-Rto 0.0 /100 WBC LAB 771-6(LOINC) nRBC # Bld Auto <0.01 <0.01 k/u L LAB 25541-5(LOINC) Differential method Bld Auto Performed By: #### 05910-7 # ### [facility] CLIA [id number] [address] OF [facility] PROGRESS Observed: 04/04/2025 10:24 AM Status: COMPLETED Source: [facility] HNO ID: [id number] Author: LIZET AGUDELO APRN.SOLE MOLDER Service: ? Author Type: Nurse Practitioner Type: Progress Notes Filed: 04/04/2025 14:55 Note Text: Neurological Prim BRAIN TUMOR AND NEURO-ONCOLOGY CENTER TELE-HEALTH VISIT PROGRESS NOTE This is a virtual visit using [employer] video visit. It required patient-provider interaction for the medical decision making as documented below. I have communicated my name and active licensure. The patient's identity and physical location were verified at the time of this visit. Either the patient or their legal textiles sales representative has been informed of the risks and benefits of -- and alternatives to -- treatment through a remote evaluation and consents to proceed with the evaluation remotely. Persons Present: Patient AND son (Will) Chief Complaint/Reason: Brain mets MEDICAL DECISION MAKING Assessment/Plan: 1. Brain mets s/p GKRS on 06/16/24 AND 02/02/25 - New MRI brain scan shows new punctate focus of enhancement in the Right superior frontal gyrus (series 14, image 90) - Images reviewed with her and her son today - Case and images pending review by treating physicians for consideration of GKRS; our office will contact her with final recommendations after review - Reviewed signs and symptoms that would prompt sooner evaluation - She has our contact information and was advised to call if new symptoms, questions or concerns arise prior to next scheduled visit. - All questions were answered. Portions of this note have been copied and updated appropriately. I spent a total of 45 minutes on the date of the service which included preparing to see the patient, [id number] patient care, completing clinical documentation, obtaining and/or reviewing separately obtained history, performing a medically appropriate examination, counseling and educating the patient/family/caregiver, ordering medications, tests, or procedures, communicating with other HCPs (not separately reported), independently interpreting results (not separately reported), communicating results to the patient/family/caregiver, and care coordination (not separately reported). Lizet Agudelo APRN.SOLE MOLDER cc: Swapnil Gonzales MD AND Jessie Clayton MD AND John Albright MD - [facility] ADDENDUM: Case and images reviewed with treating physicians. Recommendation made for short-interval follow up with a repeat MRI brain scan in 6-8 weeks for close monitoring of above finding. Spoke to patient via telephone to communicate this plan and she is agreeable. She has our contact information and was advised to call if new symptoms, questions or concerns arise prior to next scheduled visit. All questions were answered. Lizet Agudelo APRN.SOLE MOLDER HPI: Joyce Robles is a very pleasant 69 year old female who is here for a follow-up visit for breast cancer with brain metastases. She is s/p GKRS by Dr. Swapnil Gonzales, Dr. Jessie Clayton, and Dr. Aarti Olivares as outlined below: 06/16/24: GKRS to 1) Right occ 2) Left fr. 02/02/25: GKRS to 1) Right temp 2) Left temp 3) Right pariet 4) Right cereb Primary cancer site : Breast Primary oncologist : Dr. John Albright Current systemic treatment : Elacestrant (Orserdu) Current steroids: None Interval history: 08/05/24 Presents today with son (Will) for follow up with a new MRI brain scan for review. Since last visit, no new neurologic symptoms or concerns. No SOB today. Lives independently and drives without issues. Reports some generalized weakness last few days. No recent illness or fevers. 10/30/24 No new neurologic symptoms or concerns. Lives independently. Continues with weekly thoracentesis. No SOB today. Has trouble staying asleep at night (sleeps 9PM to 3AM). 01/10/25 No recent migraines. No new neurologic symptoms or concerns. Continues with difficulty sleeping which she feels has effecting her cognitive functioning. 04/04/25 Had an episode of lightheadedness and gait instability while out for a walk this morning; wondering if related to dosing of Ativan in the morning. Continues to report trouble sleeping and alternating between constipation/diarrhea. Has thoracentesis weekly on Mondays. ROS: Neurological : No complaint of new or worsening headaches + Complaint of migraines, chronic (uses Tylenol prn) No complaint of tinnitus No complaint of decreased hearing No complaint of diplopia No complaints of blurred vision. No complaint of vision loss or blackouts No complaint of arm/leg/face numbness or tingling No complaint of focal limb weakness No problem with limb coordination or imbalance No complaint of LOC or syncope + Complaint of recent fall, mechanical/slipped, 1-2 months ago No complaint of gait instability + Complaints of memory changes/"chemo brain" General : + Physical deconditioning + PE (on Eliquis) + Trouble sleeping, as above (on Zyprexa) + Neuropathy, LLE toes + Constipation/diarrhea (on Miralax AND Linzess AND fiber prn) + Anxiety (on Ativan) + Trouble sleeping (on Ambien) Physical examination (virtual): Patient is in no distress. Mental status: Clear Speech: Fluent. Face symmetric Tongue protrudes midline EOMI without diplopia No ptosis Should shrug symmetric Able to stand and ambulate independently with steady gait Data Reviewed: Most recent imaging IMPRESSION: New punctate enhancing focus in the right frontal lobe, suspicious for metastasis. Complete/near-complete resolution of postcontrast enhancement on multiple treated intracranial metastatic lesions, as detailed. No associated perfusion abnormality. Drafter: PSCB Transcribe Date/Time: Mar 28 2025 10:54A Dictated by : NOEMI SOLIZ MD This examination was interpreted and the report reviewed and electronically signed by: PEGGY RIVERS MD on Mar 28 2025 12:49PM EST * * *Final Report* * * DATE OF EXAM: Mar 28 2025 10:51AM [facility] 0295 - MRI BRAIN WO/W IVCON / PROCEDURE REASON: Metastasis to brain (HCC) * * * * Physician Interpretation * * * * EXAMINATION: MRI BRAIN WO/W IVCON CLINICAL HISTORY: Metastasis to brain. History breast cancer. Prior gamma knife. TECHNIQUE: Routine brain MRI protocol without and with contrast including diffusion images. MR perfusion study was performed of the entire brain following bolus intravenous administration of gadolinium utilizing dynamic susceptibility-weighted contrast-enhanced acquisition. MQ: [id number]_2 Contrast: 14 mL Dotarem IV COMPARISON: Brain MRI 02/02/2025. 01/07/2025.. RESULT: Acute Change: There is no evidence of restricted diffusion to suggest an acute infarct. Hemorrhage: No evidence of prior parenchymal hemorrhage on the susceptibility weighted images. Mass Lesion/ Mass Effect: Near complete resolution of postcontrast enhancement within the treated cortical right parietal lesion (14:71). No significant residual enhancement in the prior lesions within the right temporal lobe, left temporal lobe, and inferior right cerebellar hemisphere. New punctate focus of enhancement along the cortex of the right superior frontal gyrus (14:90). No mass effect, midline shift or herniation. Perfusion: No distinct perfusion abnormality is identified to suggest neovascularity. Chronic Change: Scattered punctate foci of increased T2 and FLAIR signal are noted in the supratentorial white matter which is a nonspecific finding, but likely represents minimal chronic microvascular ischemia. Parenchyma: No significant volume loss for age. The brain parenchyma is otherwise within normal limits of signal intensity and morphology. Ventricles: Normal caliber and morphology. Skull Base: Hypothalamic and pituitary region are grossly normal. Craniocervical junction is normal. No significant marrow replacement process. Vasculature: Major intracranial arterial structures, and dural venous sinuses show typical flow void, suggesting patency by spin echo criteria. Other: The visualized paranasal sinuses and mastoid air cells are clear. The orbits and extracranial soft tissues are unremarkable. KPS: 90 CNPN Observed: 04/04/2025 12:00 AM Status: COMPLETED Source: [facility] Telephone (NSBTMA) JOYCE ROBLES ([id number]) 1955 F Date Time Provider Department 04/04/25 LIZET AGUDELO NSBTMA During your visit today, we recorded the following information about you: Lizet Agudelo APRN.CNP 04/04/2025 2:57 PM Signed Scheduling Request - Established Patient Time Frame: 6-8 weeks Orders: MRI BRAIN WO/W IVCON plus perfusion @ [employer] Provider: Lizet Agudelo APRN.CNP Visit type: Virtual Visit (prefers Mon appts only) Diagnosis: Brain mets Allergies As of Date: 04/04/2025 Noted Allergy Reaction ZOFRAN (ONDANSETRON) 07/23/2024 14 - Other: See Comments Comments: Migraines. DEMERAL (MEPERIDINE) 04/01/2016 8 - GI Upset PERCOCET (OXYCODONE-ACETAMINOPHEN)04/01/2016 8 - GI Upset Date Reviewed: 03/28/2025 Reviewed by: Ewelina Wood RT(R) - Fully Assessed Reason for Visit: JESSICA, short-interval follow up [Other] Prescriptions as of 04/04/2025 - iv contrast (will be provided with radiology test) MRI Brain Inject, intravenously, once for 1 [...] in the MR contrast administration guidelines link - linaCLOtide (LINZESS) 72 mcg capsule Take 1 capsule by mouth every other day. - LORazepam (ATIVAN) 0.5 mg Take 0.5 mg by mouth three times a day as needed. - zolpidem (AMBIEN) 10 mg Take 1 tablet by mouth at bedtime as needed for up to 90 days. - cinnamon bark (CINNAMON ORAL) Take 1 tablet by mouth once daily. 1000 mg - apixaban (ELIQUIS) 5 mg tab(s) Take 1 tablet by mouth two times a day. - elacestrant (ORSERDU) 345 mg tablet Take 1 tablet (345 mg) by mouth once daily. with a meal. - ginkgo biloba (GINKOBA ORAL) Take 120 mg by mouth once daily. - MULTI-VITAMIN ORAL Take 1 tablet by mouth once daily. - GLUCOSAMINE SULFATE (GLUCOSAMINE ORAL) Take 1 tablet by mouth once daily. 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 History breast cancer. Prior gamma knife. TECHNIQUE: Routine brain MRI protocol without and with contrast including diffusion images. MR perfusion study was performed of the entire brain following bolus intravenous administration of gadolinium utilizing dynamic susceptibility-weighted contrast-enhanced acquisition. MQ: MRBWOW_2 Contrast: 14 mL Dotarem IV COMPARISON: Brain MRI 02/02/2025. 01/07/2025.. RESULT: Acute Change: There is no evidence of restricted diffusion to suggest an acute infarct. Hemorrhage: No evidence of prior parenchymal hemorrhage on the susceptibility weighted images. Mass Lesion/ Mass Effect: Near complete resolution of postcontrast enhancement within the treated cortical right parietal lesion (14:71). No significant residual enhancement in the prior lesions within the right temporal lobe, left temporal lobe, and inferior right cerebellar hemisphere. New punctate focus of enhancement along the cortex of the right superior frontal gyrus (14:90). No mass effect, midline shift or herniation. Perfusion: No distinct perfusion abnormality is identified to suggest neovascularity. Chronic Change: Scattered punctate foci of increased T2 and FLAIR signal are noted in the supratentorial white matter which is a nonspecific finding, but likely represents minimal chronic microvascular ischemia. Parenchyma: No significant volume loss for age. The brain parenchyma is otherwise within normal limits of signal intensity and morphology. Ventricles: Normal caliber and morphology. Skull Base: Hypothalamic and pituitary region are grossly normal. Craniocervical junction is normal. No significant marrow replacement process. Vasculature: Major intracranial arterial structures, and dural venous sinuses show typical flow void, suggesting patency by spin echo criteria. Other: The visualized paranasal sinuses and mastoid air cells are clear. The orbits and extracranial soft tissues are unremarkable. IMPRESSION: New punctate enhancing focus in the right frontal lobe, suspicious for metastasis. Complete/near-complete resolution of postcontrast enhancement on multiple treated intracranial metastatic lesions, as detailed. No associated perfusion abnormality. Drafter: KEVIN Transcribe Date/Time: Mar 28 2025 10:54A Dictated by : NOEMI SOLIZ MD This examination was interpreted and the report reviewed and electronically signed by: PEGGY RIVERS MD on Mar 28 2025 12:49PM EST [id number] PROGRESS Observed: 03/28/2025 10:30 AM Status: COMPLETED Source: [facility] HNO ID: [id number] Author: EWELINA WOOD RT(R) Service: ? Author Type: Technologist Type: Progress Notes Filed: 03/28/2025 10:34 Note Text: Radiology Service Progress Note DATE OF SERVICE: March 28, 2025 TIME: 10:33 AM PATIENT IDENTITY VERIFICATION COMPLETED USING TWO (2) STANDARD IDENTIFIERS: Name and Date of confirmed by patient verbally. FALL SCREENING: Has the patient had 2 falls in the last year or 1 fall with injury or currently using an Ambulatory Assistive Device (Walker, Cane, Wheelchair, Crutches, etc.)? No PATIENT GENDER DATA: Assigned female at . status: : No status: NO. PATIENT RELEVANT IMPLANT DATA REVIEWED: Yes PATIENT PRESENTS WITH AN IMPLANTABLE OR ATTACHED RETAIL BUYER: No ALLERGIES: Reviewed and unchanged CONTRAST ALLERGY: NO. EXAM: MRI - CONTRAST TYPE: GROUP II PERIPHERAL IV DATA: Ambulatory: A peripheral IV was started in the Left upper extremity with a Angio cath: 20 gauge. RADIOLOGY DEPARTMENT: MR; Exam(s) Completed: Head: Routine Brain with Perfusion. Anesthesia: No. Aromatherapy Administered: No SIGNATURE: RT Pauline(R) PATIENT NAME: Joyce Robles DATE: March 28, 2025 TIME: 10:33 AM COMP METAB 2000 PNL SERPL Collected: 11:17 AM Status: F Source: [facility] Order Comment: Specimen Type : BLOOD SPECIMEN Ordering Facility: [facility] Address: [address] [place] [address] TYPE CODE TESTS RESULT OUT OF RANGE REFERENCE UNITS LAB 2885-2(LOINC) Prot SerPl-mCnc 5.6 Low 6.3-8.0 g/dL LAB 1751-7(LOINC) Albumin SerPl-mCnc 3.0 Low 3.9-4.9 g/dL LAB 69069-5(LOINC) Calcium SerPl-mCnc 9.2 8.5-10.2 mg/dL LAB 1975-2(LOINC) Bilirub SerPl-mCnc 0.3 0.2-1.3 mg/dL LAB 6768-6(LOINC) ALP SerPl-cCnc 109 34-123 U/L LAB 1920-8(LOINC) AST SerPl-cCnc 16 13-35 U/L LAB 1742-6(LOINC) ALT SerPl-cCnc 10 7-38 U/L LAB 2345-7(LOINC) Glucose SerPl-mCnc 139 High 74-99 mg/dL Result Comment: The [place] Diabetes Association (ADA) provides guidance for cutoff values for fasting glucose and random glucose. The ADA defines fasting as no caloric intake for at least 8 hours. Fasting plasma glucose results between 100 to 125 mg/dL indicate increased risk for diabetes (prediabetes). Fasting plasma glucose results greater than or equal to 126 mg/dL meet the criteria for diagnosis of diabetes. In the absence of unequivocal hyperglycemia, results should be confirmed by repeat testing. In a patient with classic symptoms of hyperglycemia or hyperglycemic crisis, random plasma glucose results greater than or equal to 200 mg/dL meet the criteria for diagnosis of diabetes. Reference: Standards of Medical Care in Diabetes 2016, [place] Diabetes Association. Diabetes Care. 2016.39(Suppl 1). LAB 3094-0(LOINC) BUN SerPl-mCnc 11 7-21 mg/dL LAB 2160-0(LOINC) Creat SerPl-mCnc 0.64 0.58-0.96 mg/dL LAB 2951-2(LOINC) Sodium SerPl-sCnc 138 136-144 mmol/L LAB 2823-3(LOINC) Potassium SerPl-sCnc 4.0 3.7-5.1 mmol/L LAB 2075-0(LOINC) Chloride SerPl-sCnc 105 98-107 mmol/L LAB 2028-9(LOINC) CO2 SerPl-sCnc 23 22-30 mmol/L LAB 92809-1(LOINC) Anion Gap SerPl-sCnc 10 8-15 mmol/L LAB 37991-5(LOINC) eGFRcr SerPlBld CKD-EPI 2020 95 >=60 mL/min/1. 73m??? Result Comment: Estimated Gl omerular Filtration Rate (eGFR) is calculated using the 2020 CKD-EPI creatinine equation. This equation utilizes serum creatinine, sex, and age as parameters. The creatinine assay has traceable calibration to isotope dilution-mass spectrometry. Refer to KDIGO guidelines for clinical interpretation. In patients with unstable renal function, e.g. those with acute kidney injury, the eGFR may not accurately reflect actual GFR. Performed By: #### [id number] # ### [facility] CLIA [id number] [address] [place] [address] [place] CANCER AG15-3 SERPL-ACNC Collected: 11:17 AM Status: F Source: [facility] Order Comment: Specimen Type : BLOOD SPECIMEN Ordering Facility: [facility] Address: [address] [place] [address] TYPE CODE TESTS RESULT OUT OF RANGE REFERENCE UNITS LAB 6875-9(LOINC) Cancer Ag15-3 SerPl-aCnc 412.1 High <26.0 U/mL Result Comment: The CA 15-3 test methodology used is the Electrochemiluminescence Immunoassay by [employer]. Results obtained with different methods or kits cannot be used interchangeably. Performed By: #### [id number] ## ## [facility] CLIA [id number] [address] [facility] [place] [address] [place] CBC W AUTO DIFF BLD Collected: 03/07/2025 11:17 AM S tatus: F Source: [facility] Order Comment: Specimen Type : BLOOD SPECIMEN Ordering Facility: [facility] Address: [address] [place] [address] TYPE CODE TESTS RESULT OUT OF RANGE REFERENCE UNITS LAB 6690-2(INC) WBC # Bld Auto 6.42 3.70-11.00 k/uL LAB 789-8(INC) RBC # Bld Auto 4.18 3.90-5.20 m/ uL LAB 718-7(INC) Hgb Bld-mCnc 13.5 11.5-15.5 g/dL LAB 4544-3(INC) Hct VFr Bld Auto 41.0 36.0-46.0 % LAB 787-2(LOINC) MCV RBC Auto 98.1 80.0-100.0 fL LAB 785-6(INC) MCH RBC Qn Auto 32.3 26.0-34.0 p g LAB 786-4(LOINC) MCHC RBC Auto-mCnc 32.9 30.5-36.0 g/dL LAB 32036-3(INC) RDW RBC-Rto 12.9 11.5-15.0 % LAB 777-3(INC) Platelet # Bld Auto 239 150-400 k/uL LAB 68383-5(INC) PMV Bld Auto 9.0 9.0-12.7 fL LAB 770-8(LOINC) Neutrophils/leuk NFr Bld Auto 73.9 % LAB 751-8(LOINC) Neutrophils # Bld Auto 4.75 1.45-7.50 k/uL LAB 736-9(LOINC) Lymphocytes/leuk NFr Bld Auto 17.6 % LAB 731-0(LOINC) Lymphocytes # Bld Auto 1.13 1.00-4.00 k/uL LAB 5905-5(LOINC) Monocytes/leuk NFr Bld Auto 6.9 % LAB 742-7(LOINC) Monocytes # Bld Auto 0.44 <0.87 k/uL LAB 713-8(LOINC) Eosinophil/leuk NFr Bld Auto 0.6 % LAB 711-2(LOINC) Eosinophil # Bld Auto 0.04 <0.46 k/uL LAB 706-2(LOINC) Basophils/leuk NFr Bld Auto 0.5 % LAB 704-7(LOINC) Basophils # Bld Auto 0.03 <0.11 k/uL LAB 92496-4(LOINC) Imm Granulocytes/jose k NFr Bld Auto 0.5 % LAB 28965-5(LOINC) Imm Granulocytes # Bld Auto 0.03 <0.10 k/uL LAB 30961-6(LOINC) nRBC/100 WBC Bld-Rto 0.0 /100 WBC LAB 771-6(LOINC) nRBC # Bld Auto <0.01 <0.01 k/u L LAB 42850-9(LOINC) Differential method Bld Auto Performed By: #### [id number] # ### [facility] CLIA [id number] [address] [place] [address] OF [facility] PROGRESS Observed: 02/14/2025 1:30 PM Status: COMPLETED Source: [facility] HNO ID: [id number] Author: JESSIE CLAYTON MD Service: ? Author Type: Physician Type: Progress Notes Filed: 02/14/2025 20:21 Note Text: DISTANCE HEALTH FOLLOW UP VISIT I have communicated my name and active licensure. The patient?s identity and physical location were verified at the time of this visit. Joyce Robles or their legal textiles sales representative has been informed of the risks and benefits of -- and alternatives to -- treatment through a remote evaluation and consents to proceed with the evaluation remotely. This visit is a MyChart Zoom encounter which required patient-provider interaction for the medical decision making as documented below. Total Time Spent: I spent a total of 20 minutes on the date of the service which included preparing to see the patient, [id number] patient care, completing clinical documentation, and independently interpreting results (not separately reported). PATIENT NAME: Joyce Robles PATIENT DIAGNOSIS: 69 year old female with germline BRCA2 mutation and: Metastatic breast adenocarcinoma with one 4mm intracranial metastasis History of stage IIIB ovarian cancer (surgery 10/2008, followed by 6 cycles carboplatin and paclitaxel completed 04/2009) with recurrence (debulking 10/2012, adjuvant doxorubicin and carboplatin completed 05/2013) BRIEF ONCOLOGIC HISTORY: 04/2016 - left lumpectomy with SLNBx for screen-detected breast cancer. Pathology showing 2.5 cm ER/IA positive, HER2 negative tumor in the left breast with micro metastasis in 1 of 3 sentinel lymph nodes. Grade 3. LVSI was present. 08/2016 - Completed adjuvant radiation 50Gy/25fx whole left breast + 16 Gy/8fx scar boost with Dr. Li at OSH 10/2016 - Started on aromatase inhibitor, stopped 02/2024 - Shortness of breath prompted CTA, which showed pulmonary emboli and pleural effusion. 03/14/24 - Thoracentesis. Cytology showed malignant cells consistent with breast primary. 04/27/24 - PET showing bony metastases 04/28/24 - MRI brain showing small focal enhancing nodule measuring 4 mm along the posterior lateral aspect of the right occipital lobe with minimal surrounding edema 05/14/24 - started on olaparib INTERVAL HISTORY: Patient with a history of brain metastases recently underwent Gamma Knife radiosurgery performed by Dr. Olivares and Dr. Gonzales to treat new brain lesions identified on MRI. She is currently under the care of Dr. Albright and is scheduled for a PET scan in three months. She reports experiencing "brain fog" since receiving IV chemotherapy around August or September, describing difficulty with processing and articulating thoughts. She also notes significant sleep disturbances over the past 6-8 months, averaging about 3 hours of sleep per night. Recently, she was prescribed Ambien, which has increased her sleep duration to 6-7 hours per night, though she does not sleep continuously. She denies any spinal symptoms, including back pain, leg weakness, numbness, tingling, or bowel and bladder issues. She also denies pain in other areas but reports generalized weakness due to inactivity. RADIOLOGY/LABORATORY DATA: CT Brain Report CT BRAIN WO IVCON Exam End: 02/02/2025 9:08 AM (Final result) Narrative: * * *Final Report* * * DATE OF EXAM: Feb 02 2025 9:07AM [facility] 0504 - CT BRAIN WO IVCON / PROCEDURE REASON: Metastasis to brain (HCC) * * * * Physician Interpretation * * * * EXAMINATION: CT BRAIN WO IVCON CLINICAL HISTORY: Metastasis to brain (HCC) History of breast cancer. Prior gamma knife radiosurgery to right occipital and left frontal targets. TECHNIQUE: Serial axial images without IV contrast were obtained from the vertex to the foramen magnum. MQ: CTBWO_3 CT Radiation dose: Integrated Dose-Length Product (DLP) for this visit = 1014 mGy*cm CT Dose Reduction Employed: No dose reduction techniques were required COMPARISON: Localization MRI performed today. Additional MR examinations of the brain January 07, 2025 and 10/07/2024. RESULT: Small areas of interest in the right posterior temporal-occipital region and inferior right cerebellum are below the detection threshold for CT. No new mass effect. No evidence for infarct or hemorrhage. Gross brain volume is within expected limits for age. No evidence for an infiltrative process at the skull base. Paranasal sinus chambers, mastoid air cells and middle ear cavities are clear. Impression: IMPRESSION: Localization study. Small areas of interest are below the detection threshold for CT and visible on the localization MR. Drafter: PSCB Transcribe Date/Time: Feb 02 2025 9:17A Dictated by : MADAI SEQUEIRA MD This examination was interpreted and the report reviewed and electronically signed by: MADAI SEQUEIRA MD on Feb 02 2025 9:19AM EST HISTORY REVIEWED (electronic chart updated): REVIEW OF SYSTEMS: Constitutional: (+) sleep disturbance, (+) generalized weakness Musculoskeletal: (-) back pain, (-) musculoskeletal pain Neurological: (+) cognitive difficulty, (-) leg numbness, (-) leg paresthesia Gastrointestinal: (-) bowel dysfunction Genitourinary: (-) bladder dysfunction VIDEO PHYSICAL EXAMINATION: (if done, performed via video enabled technology) GENERAL: alert and appropriate, in no distress and well-hydrated, well nourished ASSESSMENT: 69 yo with metastatic breast CA with recent GKRS. PLAN: She had an MRI of the spine showing diffuse spine metastases without epidural disease. No need for RT of the spine. She should continue to follow with MRI of the brain with Lizet Agudelo CNP as scheduled mid-March. She will continue to follow with Dr. Albright. 1. Secondary malignant neoplasm of brain (HCC) (C79.31) Recent MRI revealed new brain lesions, which were treated with Gamma Knife Radiosurgery by Dr. Gonzales and Dr. Olivares. No evidence of leptomeningeal disease on review of imaging. Patient experiencing cognitive difficulties, possibly related to prior chemotherapy ("chemo brain"). - Continue current management. - Discuss cognitive symptoms with Dr. Albright during next visit. - Consider neurocognitive testing and referral to neuropsychology if symptoms persist or worsen. 2. 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 Gonzales showed no significant findings of concern. Patient denies any back pain, weakness, or neurological symptoms. Currently on oral chemotherapy and hormone therapy. PET scan scheduled in [address] Albright. - No radiation therapy indicated for the spine at this time due to lack of symptoms. - Follow-up with PET scan in 3 months. Jessie Clayton MD PROGRESS Observed: 02/08/2025 11:10 AM Status: COMPLETED Source: [facility] HNO ID: [id number] Author: JOHN ALBRIGHT, DO Service: ? Author Type: Physician Type: Progress Notes Filed: 02/08/2025 13:33 Note Text: Oncologic problem(s): 1) MBC. 2) History of ovarian cancer. 3) Germline BRCA2 mutation. HPI: The patient is a 69-year-old female with a past medical history as [...] 2016. The pathology demonstrated a 2.5 cm ER/IA positive, HER2 negative tumor in the left breast with micro metastasis in 1 of 3 sentinel lymph nodes (0.8 mm). Overall grade was 3. Lymphovascular invasion was present. Closest margin was 2 mm from anterior margin. ER was positive greater than 95%. IA positive greater than 95% with moderate to strong staining intensity. HER2 was equivocal 1-2+; nonamplified by FISH testing. She declined adjuvant chemotherapy but received adjuvant radiation. Was started on AI with anastrozole beginning 10/2016. Was found to have germline BRCA2 mutation. She had declined prophylactic mastectomy and had been undergoing screening for breast cancer. Recently presented to [facility] on 03/12/2024 with a complaint of increasing shortness of breath. Prior to that she had been on a 10-day trip to [place]. CTA of the chest same day demonstrated [...] on 03/22/2024. Most recent screening mammogram 01/2024. [facility]. Son in [place]--helps with house and yard. Daughter in [place]. about 3 years ago. Prior therapy: 1) Anastrozole adjuvant setting--began 10/2016. 2) Letrozole. 3) Olaparib for metastatic disease--didn't tolerate. 4) Gemcitabine. C1D1 07/23/2024. Current therapy: 1) Elacestrant. Began 09/16/2024. Presents for ongoing oncologic management. Interim history: Continues to tolerating elacestrant well. Still not sleeping. Getting 2-3 hours a night. Feeling very fatigued during the day. Currently on dexamethasone. Vivid dreams when does sleep. Would like to try Ambien--had it in the past. Would like to try Linzess at 145 every other day. Denies MS pain. Thoracentesis 01/24 1500 mL. Had one yesterday 1400 mL. 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 Had been on alendronate. PAST SURGICAL HISTORY Procedure Laterality Date BSO W/TIESHA AND OMENECTOMY FOR MALIGNANCY 07/14/2012 BX BREAST W/DEVICE 1ST LESION ULTRASOUND GUID Left 04/04/2016 U/S Bx outer mid left breast BX/EXC LYMPH NODE OPEN DEEP AXILLARY NODE Left 04/29/2016 HYSTERECTOMY HX 2009 LX PARTIAL COLECTOMY 07/14/2012 MASTECTOMY, PARTIAL Left 04/29/2016 PAST SURGICAL HISTORY OF Left ablation of vein of left leg for venous reflux linaCLOtide (LINZESS) 72 mcg capsule Take 1 capsule by mouth every other day. linaclotide (LINZESS) 145 mcg capsule Take 1 capsule by mouth every other day. Take capsule on an empty stomach at least 30 minutes before a meal at the same time each day. Capsule should be swallowed whole. DO NOT chew or crush famotidine (PEPCID) 20 mg tablet Take 1 tablet by mouth two times a day for 10 days. Patient should start on February 03, 2025. dexAMETHasone (DECADRON) 2 mg tablet Start the day after your Gamma Knife procedure: Decadron 2 mg tabs Take 4 mg (2 tablets) twice a day for 4 days. Take 2 mg (1 tablet) three times a day for 2 days. Take 2 mg (1 tablet) twice a day for 2 days. Take 2 mg (1 tablet) once a day for 2 days. Then stop Decadron. Patient should start on February 03, 2025. iv contrast (will be provided with radiology test) MRI Brain Localization Inject, intravenously, once for 1 dose.No IV access, insert saline lock prior to beginning of sedation, infusion, injection of imaging exam.Discontinue saline lock post exam. If Pt. has a central line or IVAD, may access for administration according to line specific nursing protocol.Once exam is complete flush line and de-access according to line specific nursing protocol in the MR contrast administration guidelines link iv contrast (will be provided with radiology test) MRI Brain Inject, intravenously, once for 1 [...] in the MR contrast administration guidelines link OTC PRODUCT Vitamin D/Vitamin K2/Turmeric: Take one tablet by mouth once daily. OLANZapine (ZYPREXA) 5 mg tablet Take 1 tablet by mouth daily at bedtime. cinnamon bark (CINNAMON ORAL) Take 1 tablet by mouth once daily. apixaban (ELIQUIS) 5 mg tab(s) Take 1 tablet by mouth two times a day. elacestrant (ORSERDU) 345 mg tablet Take 1 tablet (345 mg) by mouth once daily. with a meal. calcium carbonate/vitamin D3 (CALCIUM + D ORAL) Take 1 tablet by mouth once daily. ginkgo biloba (GINKOBA ORAL) Take 120 mg by mouth once daily. MULTI-VITAMIN ORAL Take 1 tablet by mouth once daily. GLUCOSAMINE SULFATE (GLUCOSAMINE ORAL) Take 1 tablet by mouth once daily. ALLERGIES Allergen Reactions Zofran [Ondansetron] Other: See Comments Migraines. Demeral [Meperidine] GI Upset Percocet [Oxycodone* GI Upset Social History Tobacco Use Smoking status: Never Smokeless tobacco: Never Vaping Use Vaping status: Never Used Substance Use Topics Alcohol use: Not Currently Comment: occ Drug use: Never FAMILY HISTORY Problem Relation Age of Onset Hypertension Mother other (pulmonary embolism) Mother Stroke Father Heart Brother Heart Attack Brother Colon Cancer Maternal Grandmother Heart Maternal Grandfather Prostate Cancer Paternal Grandfather Breast Cancer Maternal Aunt Cancer Maternal Aunt liver Ovarian cancer Maternal cousin Breast Cancer Paternal Aunt Breast Cancer Paternal cousin Breast Cancer Paternal cousin REVIEW OF SYSTEMS: Negative other than HPI. PHYSICAL EXAM: Vitals: Blood pressure 104/71, pulse 107, temperature 37 ?C (98.6 ?F), temperature source Temporal, weight 67.1 kg (148 lb), SpO2 97%. Well-appearing and in no acute distress. EYES: Sclerae are anicteric bilaterally. LYMPHATIC: There is no palpable adenopathy. CARDIOVASCULAR: Rhythm is regular. ABDOMEN: The abdomen is nondistended. Extremities: No swelling or edema. SKIN: No jaundice. Depressed affect. IMAGING: PET [facility]: PET scan demonstrated skeletal metastases including right iliac wing, left acetabulum, left sacral parris in the region of the fifth thoracic vertebra. There was also increased tracer concentration in the left hemithorax at the pleural interface fulfilling quantitative criteria for viable neoplasm. MRI brain [facility]: Small focal enhancing nodule measuring 4 mm along the posterior lateral aspect of the right occipital lobe with minimal surrounding edema. Genetic testing: BRCA2 mutation. 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 Elacestrant. -PIK3CA mutation. Alpelisib plus fulvestrant or capivaertib plus fulvestrant -BRCA2 mutation. -TP53 mutation (0.2%). HER2 1-2+ on original surgical specimen 03/2016. 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 Brain metastases. Assessment: -Metastatic recurrence of pT2b N1 WI (SN) ER/IA positive, HER2 negative invasive ductal carcinoma of the left breast. -Right-sided malignant pleural effusion. -History of ovarian cancer. -Tolerating elacestrant well with exception of constipation. - I reviewed the report of the PET scan with the patient and her son. Tumor markers are declining. PET scan showed responding disease. However in light of the findings on her MRI lumbar spine, I carefully reviewed PET images from [facility] and compared those to the ones done last April. It appears on current PET scan most of the contrast extravasated in her left arm. -Pending repeat imaging, may need palliative radiation to the spine. However she has no back pain or neurologic findings focally on exam suggesting elacestrant is controlling her disease. Plan: -Continue elacestrant. -Continue biweekly thoracentesis for now. -Continue Zometa every 3 months. -Continue Linzess 72 mg every other day. -We will contact radiology at [facility] and see if PET scan can be repeated. This will be important information in caring for the patient. - Otherwise CBC/CMP/CA 15.3 monthly. - Plan on repeat PET scan in 3 months if repeat PET scan or over read suggest responding disease. - She will follow-up with the [facility] group regarding leptomeningeal disease. - Rx Ambien 10 mg at bedtime. She is only using Ativan in the morning. (I27.82) Other chronic pulmonary embolism without acute cor pulmonale (HCC) Assessment: -Tolerating apixaban well. Plan: -Continue apixaban. Portions of this documentation were copied and pasted from my previous office visit note dated 11/22/2024 in order to provide a cohesive continuity of the history. The note has been reviewed and edited and updated as necessary. I spent a total of 50 minutes on the date of the service which included preparing to see the patient, [id number] patient care, completing clinical documentation, obtaining and/or reviewing separately obtained history, performing a medically appropriate examination, counseling and educating the patient/family/caregiver, ordering medications, tests, or procedures, communicating with other HCPs (not separately reported), and communicating results to the patient/family/caregiver. John Albright DO CANCER AG15-3 SERPL-ACNC Collected: 10:54 AM Status: F Source: [facility] Order Comment: Specimen Type : BLOOD SPECIMEN Ordering Facility: [facility] Address: [address] [place] [address] TYPE CODE TESTS RESULT OUT OF RANGE REFERENCE UNITS LAB 6875-9([facility]) Cancer Ag15-3 SerPl-aCnc 463.7 High <26.0 U/mL Result Comment: The CA 15-3 test methodology used is the Electrochemiluminescence Immunoassay by [employer]. Results obtained with different methods or kits cannot be used interchangeably. Performed By: #### [id number] ## ## [facility] CLIA [id number] [address] [place] [address] [place] COMP METAB 2000 PNL SERPL Collected: 10:54 AM Status: F Source: [facility] Order Comment: Specimen Type : BLOOD SPECIMEN Ordering Facility: [facility] Address: [address] [place] [address] TYPE CODE TESTS RESULT OUT OF RANGE REFERENCE UNITS LAB 2885-2(LOINC) Prot SerPl-mCnc 6.1 Low 6.3-8.0 g/dL LAB 1751-7(LOINC) Albumin SerPl-mCnc 3.1 Low 3.9-4.9 g/dL LAB 88420-8(LOINC) Calcium SerPl-mCnc 9.3 8.5-10.2 mg/dL LAB 1975-2(LOINC) Bilirub SerPl-mCnc 0.3 0.2-1.3 mg/dL LAB 6768-6(LOINC) ALP SerPl-cCnc 75 34-123 U/L LAB 1920-8(LOINC) AST SerPl-cCnc 15 13-35 U/L LAB 1742-6(LOINC) ALT SerPl-cCnc 15 7-38 U/L LAB 2345-7(INC) Glucose SerPl-mCnc 136 High 74-99 mg/dL Result Comment: The [place] Diabetes Association (ADA) provides guidance for cutoff values for fasting glucose and random glucose. The ADA defines fasting as no caloric intake for at least 8 hours. Fasting plasma glucose results between 100 to 125 mg/dL indicate increased risk for diabetes (prediabetes). Fasting plasma glucose results greater than or equal to 126 mg/dL meet the criteria for diagnosis of diabetes. In the absence of unequivocal hyperglycemia, results should be confirmed by repeat testing. In a patient with classic symptoms of hyperglycemia or hyperglycemic crisis, random plasma glucose results greater than or equal to 200 mg/dL meet the criteria for diagnosis of diabetes. Reference: Standards of Medical Care in Diabetes 2016, [place] Diabetes Association. Diabetes Care. 2016.39(Suppl 1). LAB 3094-0(LOINC) BUN SerPl-mCnc 23 High 7-21 mg/dL LAB 2160-0(LOINC) Creat SerPl-mCnc 0.81 0.58-0.96 mg/dL LAB 2951-2(LOINC) Sodium SerPl-sCnc 136 136-144 mmol/L LAB 2823-3(LOINC) Potassium SerPl-sCnc 3.9 3.7-5.1 mmol/L LAB 2075-0(LOINC) Chloride SerPl-sCnc 104 98-107 mmol/L LAB 8-9(LOINC) CO2 SerPl-sCnc 20 Low 22-30 mmol/L LAB 46870-8(LOINC) Anion Gap SerPl-sCnc 12 8-15 mmol/L LAB 36457-6(LOINC) eGFRcr SerPlBld CKD-EPI 2020 78 >=60 mL/min/1. 73m??? Result Comment: Estimated Gl omerular Filtration Rate (eGFR) is calculated using the 2020 CKD-EPI creatinine equation. This equation utilizes serum creatinine, sex, and age as parameters. The creatinine assay has traceable calibration to isotope dilution-mass spectrometry. Refer to KDIGO guidelines for clinical interpretation. In patients with unstable renal function, e.g. those with acute kidney injury, the eGFR may not accurately reflect actual GFR. Performed By: #### [id number] # ### [facility] CLIA [id number] [address] [place] [address] [place] CBC W AUTO DIFF BLD Collected: 02/08/2025 10:54 AM S tatus: F Source: [facility] Order Comment: Specimen Type : BLOOD SPECIMEN Ordering Facility: [facility] Address: [address] [place] [address] TYPE CODE TESTS RESULT OUT OF RANGE REFERENCE UNITS LAB 6690-2(LOINC) WBC # Bld Auto 13.76 High 3.70-11.00 k/uL LAB 789-8(LOINC) RBC # Bld Auto 4.53 3.90-5.20 m/ uL LAB 718-7(LOINC) Hgb Bld-mCnc 14.6 11.5-15.5 g/dL LAB 4544-3(LOINC) Hct VFr Bld Auto 43.8 36.0-46.0 % LAB 787-2(LOINC) MCV RBC Auto 96.7 80.0-100.0 fL LAB 785-6(LOINC) MCH RBC Qn Auto 32.2 26.0-34.0 p g LAB 786-4(LOINC) MCHC RBC Auto-mCnc 33.3 30.5-36.0 g/dL LAB 24744-3(LOINC) RDW RBC-Rto 12.6 11.5-15.0 % LAB 777-3(LOINC) Platelet # Bld Auto 287 150-400 k/uL LAB 98377-8(LOINC) PMV Bld Auto 9.2 9.0-12.7 fL LAB 770-8(LOINC) Neutrophils/leuk NFr Bld Auto 79.0 % LAB 751-8(LOINC) Neutrophils # Bld Auto 10.87 High 1.45-7.50 k/uL LAB 736-9(LOINC) Lymphocytes/leuk NFr Bld Auto 11.6 % LAB 731-0(LOINC) Lymphocytes # Bld Auto 1.60 1.00-4.00 k/uL LAB 5905-5(LOINC) Monocytes/leuk NFr Bld Auto 8.5 % LAB 742-7(LOINC) Monocytes # Bld Auto 1.17 High <0.87 k/uL LAB 713-8(LOINC) Eosinophil/leuk NFr Bld Auto 0.2 % LAB 711-2(LOINC) Eosinophil # Bld Auto 0.03 <0.46 k/uL LAB 706-2(LOINC) Basophils/leuk NFr Bld Auto 0.1 % LAB 704-7(LOINC) Basophils # Bld Auto <0.03 <0.11 k/uL LAB 25588-9(LOINC) Imm Granulocytes/jose k NFr Bld Auto 0.6 % LAB 16477-8(LOINC) Imm Granulocytes # Bld Auto 0.08 <0.10 k/uL LAB 74720-6(LOINC) nRBC/100 WBC Bld-Rto 0.0 /100 WBC LAB 771-6(LOINC) nRBC # Bld Auto <0.01 <0.01 k/u L LAB 07983-6(LOINC) Differential method Bld Auto Performed By: #### [id number] # ### [facility] CLIA [id number] [address] [place] [address] OF [facility] CNOVSP Observed: 02/08/2025 10:50 AM Status: COMPLETED Source: [facility] Visit (SP) Office (HEMAWS) TIFFANIE,JOYCE K ([id number]) 1955 F Date Time Provider Department 02/08/25 10:50 AM JOHN ALBRIGHT During your visit today, we recorded the following information about you: Temperature Pulse Blood pressure Weight 98.6 degrees 107/minute 104/71 67.1 kg John Albright, DO 02/08/2025 1:33 PM Signed Oncologic problem(s): 1) MBC. 2) History of ovarian cancer. 3) Germline BRCA2 mutation. HPI: The patient is a 69-year-old female with a past medical history as [...] 2016. The pathology demonstrated a 2.5 cm ER/IA positive, HER2 negative tumor in the left breast with micro metastasis in 1 of 3 sentinel lymph nodes (0.8 mm). Overall grade was 3. Lymphovascular invasion was present. Closest margin was 2 mm from anterior margin. ER was positive greater than 95%. IA positive greater than 95% with moderate to strong staining intensity. HER2 was equivocal 1-2+; nonamplified by FISH testing. She declined adjuvant chemotherapy but received adjuvant radiation. Was started on AI with anastrozole beginning 10/2016. Was found to have germline BRCA2 mutation. She had declined prophylactic mastectomy and had been undergoing screening for breast cancer. Recently presented to [facility] on 03/12/2024 with a complaint of increasing shortness of breath. Prior to that she had been on a 10-day trip to [place]. CTA of the chest same day demonstrated [...] on 03/22/2024. Most recent screening mammogram 01/2024. Lives in town. Son in [place]--helps with house and yard. Daughter in [place]. about 3 years ago. Prior therapy: 1) Anastrozole adjuvant setting--began 10/2016. 2) Letrozole. 3) Olaparib for metastatic disease--didn't tolerate. 4) Gemcitabine. C1D1 07/23/2024. Current therapy: 1) Elacestrant. Began 09/16/2024. Presents for ongoing oncologic management. Interim history: Continues to tolerating elacestrant well. Still not sleeping. Getting 2-3 hours a night. Feeling very fatigued during the day. Currently on dexamethasone. Vivid dreams when does sleep. Would like to try Ambien--had it in the past. Would like to try Linzess at 145 every other day. Denies MS pain. Thoracentesis 01/24 1500 mL. Had one yesterday 1400 mL. 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 Had been on alendronate. PAST SURGICAL HISTORY Procedure Laterality Date BSO W/TIESHA AND OMENECTOMY FOR MALIGNANCY 07/14/2012 BX BREAST W/DEVICE 1ST LESION ULTRASOUND GUID Left 04/04/2016 U/S Bx outer mid left breast BX/EXC LYMPH NODE OPEN DEEP AXILLARY NODE Left 04/29/2016 HYSTERECTOMY HX 2009 LX PARTIAL COLECTOMY 07/14/2012 MASTECTOMY, PARTIAL Left 04/29/2016 PAST SURGICAL HISTORY OF Left ablation of vein of left leg for venous reflux linaCLOtide (LINZESS) 72 mcg capsule Take 1 capsule by mouth every other day. linaclotide (LINZESS) 145 mcg capsule Take 1 capsule by mouth every other day. Take capsule on an empty stomach at least 30 minutes before a meal at the same time each day. Capsule should be swallowed whole. DO NOT chew or crush famotidine (PEPCID) 20 mg tablet Take 1 tablet by mouth two times a day for 10 days. Patient should start on February 03, 2025. dexAMETHasone (DECADRON) 2 mg tablet Start the day after your Gamma Knife procedure: Decadron 2 mg tabs Take 4 mg (2 tablets) twice a day for 4 days. Take 2 mg (1 tablet) three times a day for 2 days. Take 2 mg (1 tablet) twice a day for 2 days. Take 2 mg (1 tablet) once a day for 2 days. Then stop Decadron. Patient should start on February 03, 2025. iv contrast (will be provided with radiology test) MRI Brain Localization Inject, intravenously, once for 1 dose.No IV access, insert saline lock prior to beginning of sedation, infusion, injection of imaging exam.Discontinue saline lock post exam. If Pt. has a central line or IVAD, may access for administration according to line specific nursing protocol.Once exam is complete flush line and de-access according to line specific nursing protocol in the MR contrast administration guidelines link iv contrast (will be provided with radiology test) MRI Brain Inject, intravenously, once for 1 [...] in the MR contrast administration guidelines link OTC PRODUCT Vitamin D/Vitamin K2/Turmeric: Take one tablet by mouth once daily. OLANZapine (ZYPREXA) 5 mg tablet Take 1 tablet by mouth daily at bedtime. cinnamon bark (CINNAMON ORAL) Take 1 tablet by mouth once daily. apixaban (ELIQUIS) 5 mg tab(s) Take 1 tablet by mouth two times a day. elacestrant (ORSERDU) 345 mg tablet Take 1 tablet (345 mg) by mouth once daily. with a meal. calcium carbonate/vitamin D3 (CALCIUM + D ORAL) Take 1 tablet by mouth once daily. ginkgo biloba (GINKOBA ORAL) Take 120 mg by mouth once daily. MULTI-VITAMIN ORAL Take 1 tablet by mouth once daily. GLUCOSAMINE SULFATE (GLUCOSAMINE ORAL) Take 1 tablet by mouth once daily. ALLERGIES Allergen Reactions Zofran [Ondansetron] Other: See Comments Migraines. Demeral [Meperidine] GI Upset Percocet [Oxycodone* GI Upset Social History Tobacco Use Smoking status: Never Smokeless tobacco: Never Vaping Use Vaping status: Never Used Substance Use Topics Alcohol use: Not Currently Comment: occ Drug use: Never FAMILY HISTORY Problem Relation Age of Onset Hypertension Mother other (pulmonary embolism) Mother Stroke Father Heart Brother Heart Attack Brother Colon Cancer Maternal Grandmother Heart Maternal Grandfather Prostate Cancer Paternal Grandfather Breast Cancer Maternal Aunt Cancer Maternal Aunt liver Ovarian cancer Maternal cousin Breast Cancer Paternal Aunt Breast Cancer Paternal cousin Breast Cancer Paternal cousin REVIEW OF SYSTEMS: Negative other than HPI. PHYSICAL EXAM: Vitals: Blood pressure 104/71, pulse 107, temperature 37 ?C (98.6 ?F), temperature source Temporal, weight 67.1 kg (148 lb), SpO2 97%. Well-appearing and in no acute distress. EYES: Sclerae are anicteric bilaterally. LYMPHATIC: There is no palpable adenopathy. CARDIOVASCULAR: Rhythm is regular. ABDOMEN: The abdomen is nondistended. Extremities: No swelling or edema. SKIN: No jaundice. Depressed affect. IMAGING: PET [facility]: PET scan demonstrated skeletal metastases including right iliac wing, left acetabulum, left sacral parris in the region of the fifth thoracic vertebra. There was also increased tracer concentration in the left hemithorax at the pleural interface fulfilling quantitative criteria for viable neoplasm. MRI brain [facility]: Small focal enhancing nodule measuring 4 mm along the posterior lateral aspect of the right occipital lobe with minimal surrounding edema. Genetic testing: BRCA2 mutation. 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 Elacestrant. -PIK3CA mutation. Alpelisib plus fulvestrant or capivaertib plus fulvestrant -BRCA2 mutation. -TP53 mutation (0.2%). HER2 1-2+ on original surgical specimen 03/2016. 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 Brain metastases. Assessment: -Metastatic recurrence of pT2b N1 WI (SN) ER/IA positive, HER2 negative invasive ductal carcinoma of the left breast. -Right-sided malignant pleural effusion. -History of ovarian cancer. -Tolerating elacestrant well with exception of constipation. - I reviewed the report of the PET scan with the patient and her son. Tumor markers are declining. PET scan showed responding disease. However in light of the findings on her MRI lumbar spine, I carefully reviewed PET images from [facility] and compared those to the ones done last April. It appears on current PET scan most of the contrast extravasated in her left arm. -Pending repeat imaging, may need palliative radiation to the spine. However she has no back pain or neurologic findings focally on exam suggesting elacestrant is controlling her disease. Plan: -Continue elacestrant. -Continue biweekly thoracentesis for now. -Continue Zometa every 3 months. -Continue Linzess 72 mg every other day. -We will contact radiology at [facility] and see if PET scan can be repeated. This will be important information in caring for the patient. - Otherwise CBC/CMP/CA 15.3 monthly. - Plan on repeat PET scan in 3 months if repeat PET scan or over read suggest responding disease. - She will follow-up with the [facility] group regarding leptomeningeal disease. - Rx Ambien 10 mg at bedtime. She is only using Ativan in the morning. (I27.82) Other chronic pulmonary embolism without acute cor pulmonale (HCC) Assessment: -Tolerating apixaban well. Plan: -Continue apixaban. Portions of this documentation were copied and pasted from my previous office visit note dated 11/22/2024 in order to provide a cohesive continuity of the history. The note has been reviewed and edited and updated as necessary. I spent a total of 50 minutes on the date of the service which included preparing to see the patient, [id number] patient care, completing clinical documentation, obtaining and/or reviewing separately obtained history, performing a medically appropriate examination, counseling and educating the patient/family/caregiver, ordering medications, tests, or procedures, communicating with other HCPs (not separately reported), and communicating results to the patient/family/caregiver. John Albright DO Allergies As of Date: 02/08/2025 Noted Allergy Reaction ZOFRAN (ONDANSETRON) 07/23/2024 14 - Other: See Comments Comments: Migraines. 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 - linaclotide (LINZESS) 145 mcg capsule Take 1 capsule by mouth every other day. Take capsule on an empty stomach at least 30 minutes before a meal at the same time each day. Capsule should be swallowed whole. DO NOT chew or crush - LORazepam (ATIVAN) 0.5 mg Take 0.5 mg by mouth three times a day as needed. - zolpidem (AMBIEN) 10 mg Take 1 tablet by mouth at bedtime as needed for up to 90 days. - famotidine (PEPCID) 20 mg tablet Take 1 tablet by mouth two times a day for 10 days. Patient should start on February 03, 2025. - dexAMETHasone (DECADRON) 2 mg tablet Start the day after your Gamma Knife procedure: Decadron 2 mg tabs Take 4 mg (2 tablets) twice a day for 4 days. Take 2 mg (1 tablet) three times a day for 2 days. Take 2 mg (1 tablet) twice a day for 2 days. Take 2 mg (1 tablet) once a day for 2 days. Then stop Decadron. Patient should start on February 03, 2025. - iv contrast (will be provided with radiology test) MRI Brain Localization Inject, intravenously, once for 1 dose.No IV access, insert saline lock prior to beginning of sedation, infusion, injection of imaging exam.Discontinue saline lock post exam. If Pt. has a central line or IVAD, may access for administration according to line specific nursing protocol.Once exam is complete flush line and de-access according to line specific nursing protocol in the MR contrast administration guidelines link - iv contrast (will be provided with radiology test) MRI Brain Inject, intravenously, once for 1 [...] in the MR contrast administration guidelines link - OTC PRODUCT Vitamin D/Vitamin K2/Turmeric: Take one tablet by mouth once daily. - OLANZapine (ZYPREXA) 5 mg tablet Take 1 tablet by mouth daily at bedtime. - cinnamon bark (CINNAMON ORAL) Take 1 tablet by mouth once daily. 1000 mg - apixaban (ELIQUIS) 5 mg tab(s) Take 1 tablet by mouth two times a day. - elacestrant (ORSERDU) 345 mg tablet Take 1 tablet (345 mg) by mouth once daily. with a meal. - calcium carbonate/vitamin D3 (CALCIUM + D ORAL) Take 1 tablet by mouth once daily. - ginkgo biloba (GINKOBA ORAL) Take 120 mg by mouth once daily. - MULTI-VITAMIN ORAL Take 1 tablet by mouth once daily. - GLUCOSAMINE SULFATE (GLUCOSAMINE ORAL) Take 1 tablet by mouth once daily. Problem List As Of Date 02/08/2025 Noted Resolved Abnormal mammogram [R92.8] 04/01/2016 Malignant neoplasm of upper-outer quadrant of l*04/08/2016 Fat necrosis [M79.89] 01/06/2017 BRCA2 gene mutation positive [Z15.01, Z15.09] 04/07/2024 History of ovarian cancer [Z85.43] 04/07/2024 Pulmonary embolus (HCC) [I26.99] 04/07/2024 Carcinoma of left breast metastatic to bone (HC*05/04/2024 Malignant pleural effusion [J91.0] 05/04/2024 Malignant neoplasm metastatic to brain (HCC) [C*06/07/2024 Dehydration [E86.0] 08/11/2024 Carcinoma of right breast metastatic to pleura *10/07/2024 02/08/2025 Encounter Status:Closed by JOHN ALBRIGHT on 02/08/25 OPERATIVE NO Observed: 02/02/2025 3:05 PM Status: COMPLETED Source: [facility] HNO ID: [id number] Author: SWAPNIL GONZALES MD Service: Neurosurgery Author Type: Physician Type: Operative Report Filed: 02/02/2025 15:08 Note Text: [facility] [address] [place] [address] [place] OPERATIVE REPORT NAME: Joyce Robles [facility] NO.: [id number] MASK SIMULATION DATE: 2025-02-02 RADIATION TREATMENT START DATE: 2025-02-02 RADIATION TREATMENT END DATE: 2025-02-02 NUMBER OF FRACTIONS: 1 PREOPERATIVE DIAGNOSIS: Metastasis, ovarian POSTOPERATIVE DIAGNOSIS: Same OPERATION: 1 fraction mask gamma knife radiosurgery. ANESTHESIA: None SURGEON: Swapnil Gonzales M.D. - Stereotactic treatment planning. RADIATION ONCOLOGIST: Aarti Olivares M.D. ASSISTANTS: Gerard Moses MD - Assistance with planning SPECIMEN: None EBL: 0 ccs OPERATIVE INDICATIONS: The full clinical history and indications for treatment were discussed in the initial neurosurgery visit note. The indications, risks, benefits, and alternatives were discussed with the patient who asked us to proceed. The patient is aware that this may be one of several staged procedures in the management of this disorder. OPERATIVE FINDINGS: 4 untreated tumors DESCRIPTION OF PROCEDURE: The patient was admitted to the [facility]. The Leksell mask was created and a stereotactic cone-beam CT was obtained. The patient then underwent high-resolution MRI and CT imaging. The scans, including the cone-beam registration CT, were loaded in the planning computer and Leksell gamma plan was used to perform fractionated radiosurgery dose planning. The lesions were treated as follows: Target 1 (r temp) Location: r temp Prescription: 24 Gy to the 89% local isodose line. The plan uses 1 shots covering 100% of the target. GTV Volume: 0.009 cm3 CTV Volume: 0.009 cm3 Max linear size: 0.37 cm Conformality Index (PIV/CTV) = 1.889 Complexity: Simple Gradient Index: 7.1 Number of Fractions: 1 Target 2 (l temp) Location: l temp Prescription: 24 Gy to the 85% local isodose line. The plan uses 2 shots covering 100% of the target. GTV Volume: 0.04 cm3 CTV Volume: 0.04 cm3 Max linear size: 0.48 cm Conformality Index (PIV/CTV) = 2 Complexity: Simple Gradient Index: 7.1 Number of Fractions: 1 Target 3 (r pariet) Location: r pariet Prescription: 24 Gy to the 59% local isodose line. The plan uses 10 shots covering 100% of the target. GTV Volume: 0.192 cm3 CTV Volume: 0.192 cm3 Max linear size: 0.7 cm Conformality Index (PIV/CTV) = 2.115 Complexity: Simple Gradient Index: 3.4 Number of Fractions: 1 Target 4 (r cereb) Location: r cereb Prescription: 24 Gy to the 88% local isodose line. The plan uses 1 shots covering 100% of the target. GTV Volume: 0.081 cm3 CTV Volume: 0.081 cm3 Max linear size: 0.53 cm Conformality Index (PIV/CTV) = 2.346 Complexity: Simple Gradient Index: 3.8 Number of Fractions: 1 After the usual quality control technician procedures were performed, fractionated radiosurgery was delivered with use of the Gamma Knife. The Gamma Knife checklists and time outs were performed during this procedure in a standard manner. Swapnil Gonzales M.D. Electronically signed February 02, 2025 3:07 PM HISTORY PHYSICAL Observed: 02/02/2025 10:54 AM Status: COMPLETED [facility] [facility] ID: [id number] Author: SWAPNIL GONZALES MD Service: Neurosurgery Author Type: Physician Type: H&P Filed: 02/02/2025 15:05 Note Text: Department of Neurosurgery Neurological Exam Patient Name: Joyce Robles Date: February 02, 2025 Time: 10:54 AM Glascow Coma Scale: Eye: Opens eyes spontaneously (4) Motor: Obeys motor commands (6) Verbal: Oriented (5) Total Glascow Coma Scale: 15 No pathological heart sounds, vesicular breathing sounds. Remaining neurological exam see clinic dote from week prior. SIGNATURE: MD Swapnil Ramírez MD Electronically signed February 02, 2025 3:05 PM PROGRESS Observed: 02/02/2025 10:00 AM Status: COMPLETED Source: [facility] HNO ID: [id number] Author: SARAY RUFFIN RT(Jaison) Service: Radiology Author Type: Technologist Type: Progress Notes Filed: 02/02/2025 09:08 Note Text: Radiology Service Progress Note PATIENT NAME: Joyce Robles DATE OF SERVICE: February 02, 2025 TIME: 9:04 AM PATIENT IDENTITY VERIFICATION COMPLETED USING TWO (2) IDENTIFIERS: Name and Date of confirmed by patient verbally and Name and Date of confirmed by identification band. FALL SCREENING: Has the patient had 2 falls in the last year or 1 fall with injury or currently using an Ambulatory Assistive Device (Walker, Cane, Wheelchair, Crutches, etc.)? No PATIENT GENDER DATA: Assigned female at . status: : No status: NO. PATIENT RELEVANT IMPLANT DATA REVIEWED: Not Applicable PATIENT PRESENTS WITH AN IMPLANTABLE OR ATTACHED RETAIL BUYER: No RADIOLOGY DEPARTMENT: CT; Exam(s) Completed: Brain PERIPHERAL IV DATA: Not applicable SIGNED BY: RT Mau(Jaison) February 02, 2025 9:04 AM PROGRESS Observed: 02/02/2025 9:53 AM Status: COMPLETED Source: [facility] HNO ID: [id number] Author: ANGELA PANCHAL RN Service: ? Author Type: Registered Nurse Type: Progress Notes Filed: 02/02/2025 14:33 Note Text: February 02, 2025 1928 Joyce arrived ambulatory with: son, Kaleb. Transportation home verified: yes, with son. Joyce here for today for imaging, mask fitting, pre-planning for Icon mask based Gamma Knife Stereotactic Radiosurgery by radiation therapist, and single session mask based treatment. ID verified with patient with two identifiers, name and birthdate. Sukumar Jones assessed for the following: Does Joyce have any pain? No. Pain 0 on scale of 0-10 Does Joyce have: Difficulty chewing and/or swallowing: no Fall risk assessment: Not at risk for falls Concerns about physical or emotional abuse: no Allergies reviewed with patient, yes. [id number] Mask completed. To imaging for CT Scan and MRI. Joyce Kit Robles returned to department for treatment # 1 of 1. Is patient on immunotherapy? No. Patient's Age: 69 Menstruation Status: Post Menopausal 1120 Decadron 10 mg po and xanax 0.5 mg po given prior to Gamma Knife SRS per order of Dr. Naveen MD. 1133 Patient assisted to treatment room. Gamma Knife SRS begun. 1258 Gamma Knife Stereotactic Radiosurgery Completed. 1305 Discharge instructions given to patient and her son. Decadron taper reviewed thoroughly with pt and son as pt had multiple questions. Son, Will reassured pt her will make sure he helps her with her taper at home. All other instructions reviewed by this nurse and patient and son verbalized an understanding. Pt then discharged. Angela Panchal RN CNOV Observed: 02/02/2025 9:30 AM Status: COMPLETED Source: [facility] Office Visit (NOGK[facility]) JOYCE ROBLES ([id number]) 1955 F Date Time Provider Department 02/02/25 9:30 AM PLACEMENT NARAYAN ROBLERO NOGKCA During your visit today, we recorded the following information about you: Pulse Blood pressure 91/minute 115/77 Angela Panchal RN 02/02/2025 2:33 PM Signed February 02, 2025 0758 Joyce arrived ambulatory with: son, Will. Transportation home verified: yes, with son. Joyce here for today for imaging, mask fitting, pre-planning for Icon mask based Gamma Knife Stereotactic Radiosurgery by radiation therapist, and single session mask based treatment. ID verified with patient with two identifiers, name and birthdate. Angela Panchal RN Joyce assessed for the following: Does Joyce have any pain? No. Pain 0 on scale of 0-10 Does Joyce have: Difficulty chewing and/or swallowing: no Fall risk assessment: Not at risk for falls Concerns about physical or emotional abuse: no Allergies reviewed with patient, yes. [id number] Mask completed. To imaging for CT Scan and MRI. Joyce Robles returned to department for treatment # 1 of 1. Is patient on immunotherapy? No. Patient's Age: 69 Menstruation Status: Post Menopausal 1120 Decadron 10 mg po and xanax 0.5 mg po given prior to Gamma Knife SRS per order of Dr. Naveen MD. 1133 Patient assisted to treatment room. Gamma Knife SRS begun. 1258 Gamma Knife Stereotactic Radiosurgery Completed. 1305 Discharge instructions given to patient and her son. Decadron taper reviewed thoroughly with pt and son as pt had multiple questions. Son, Will reassured pt her will make sure he helps her with her taper at home. All other instructions reviewed by this nurse and patient and son verbalized an understanding. Pt then discharged. VÍCTOR Jones Colleen, RN 02/02/2025 11:13 AM Signed [facility] Discharge Instructions As with any surgery there are risks and potential side effects. There is a slight chance of developing brain swelling days or months after the Gamma Knife radiosurgery. If you experience nausea, vomiting, severe headache, visual changes, difficulty speaking, a seizure or any other symptom unusual for you, contact your physician immediately or go to the nearest emergency room. These may or may not be symptoms of brain swelling. If you go to a physician or hospital other than the [facility] with any problem related to the Gamma Knife procedure, please call your physician, Dr. Timothy Gonzales at [phone]. After your treatment, you may experience a mild headache. You may take non-aspirin pain medication, such as Tylenol, if you are having any discomfort. Some patients are placed on steroids, such as Decadron, and an antacid, such as Pepcid, following their radiosurgery. Certain conditions require these medications to lessen the chance of swelling around the treated area. When prescribed, these medications are extremely important in the period immediately following your Gamma Knife treatment and must be taken exactly as directed. The Gamma Knife nurse will discuss your particular situation with you. Do not take any decadron for the remainder of today. Please begin following the new decadron regimen below on 02/03/2025: Start the day after your Gamma Knife procedure: Decadron (dexamethasone) 2 mg tablets: Take 4mg (2 tablets) twice a day for 4 days: ( (Breakfast and Lunch), (Friday (Breakfast and Lunch), (Friday (Breakfast and Lunch) and Friday (Breakfast and Lunch), then Take 2mg (1 tablet) three times a day for 2 days: (Friday (Breakfast, Lunch, and Dinner) and Friday (Breakfast, Lunch, and Dinner), then Take 2mg (1 tablet) twice a day for 2 days: (Friday (Breakfast and Lunch) and (Breakfast and Lunch), then Take 2 mg (1 tablet) once a day for 2 days: (Friday (Breakfast) and Friday (Breakfast), then Then stop Decadron. Pepcid (famotidine) 20 mg tablets: Take the Pepcid 20 mg (1 tablet) twice a day while taking the Decadron. Stop Pepcid when you stop the Decadron. Resume all other regular medications. -Taking good care of your general health is an important step to recovery. Continue to eat well and get plenty of rest. If you have any non-urgent questions or concerns, please call your physician, Dr. Timothy Gonzales at [phone] Friday through Friday 8:00 am to 5:00 pm. In the evening or on weekends, call [phone] or toll-free [phone] and ask the screw machine operator to page your neurosurgeon's resident international logistics coordinator. Referring Provider: SWAPNIL GONZALES [[id number]] Allergies As of Date: 02/02/2025 Noted Allergy Reaction ZOFRAN (ONDANSETRON) 07/23/2024 14 - Other: See Comments Comments: Migraines. DEMERAL (MEPERIDINE) 04/01/2016 8 - GI Upset PERCOCET (OXYCODONE-ACETAMINOPHEN)04/01/2016 8 - GI Upset Date Reviewed: 02/02/2025 Reviewed by: Angela Panchal RN - Fully Assessed Reason for Visit: Procedure [88] Cmt: GKRS Primary Visit Diagnosis:Metastasis to brain (HCC) [C79.31] Order(s):[] ALPRAZolam 0.5 mg tab(s) (XANAX)Disp: Rfl: [] dexAMETHasone 10 mg tab(s) (DECADRON)Disp: Rfl: Prescriptions as of 02/02/2025 - famotidine (PEPCID) 20 mg tablet Take 1 tablet by mouth two times a day for 10 days. Patient should start on February 03, 2025. - dexAMETHasone (DECADRON) 2 mg tablet Start the day after your Gamma Knife procedure: Decadron 2 mg tabs Take 4 mg (2 tablets) twice a day for 4 days. Take 2 mg (1 tablet) three times a day for 2 days. Take 2 mg (1 tablet) twice a day for 2 days. Take 2 mg (1 tablet) once a day for 2 days. Then stop Decadron. Patient should start on February 03, 2025. - iv contrast (will be provided with radiology test) MRI Brain Localization Inject, intravenously, once for 1 dose.No IV access, insert saline lock prior to beginning of sedation, infusion, injection of imaging exam.Discontinue saline lock post exam. If Pt. has a central line or IVAD, may access for administration according to line specific nursing protocol.Once exam is complete flush line and de-access according to line specific nursing protocol in the MR contrast administration guidelines link - iv contrast (will be provided with radiology test) MRI Brain Inject, intravenously, once for 1 [...] in the MR contrast administration guidelines link - linaCLOtide (LINZESS) 72 mcg capsule Take 1 capsule by mouth once daily. Take capsule on an empty stomach at least 30 minutes before a meal at the same time each day, alternating with 2 capsules once a day. Capsule should be swallowed whole. DO NOT chew or crush. - OTC PRODUCT Vitamin D/Vitamin K2/Turmeric: Take one tablet by mouth once daily. - OLANZapine (ZYPREXA) 5 mg tablet Take 1 tablet by mouth daily at bedtime. - cinnamon bark (CINNAMON ORAL) Take 1 tablet by mouth once daily. - apixaban (ELIQUIS) 5 mg tab(s) Take 1 tablet by mouth two times a day. - elacestrant (ORSERDU) 345 mg tablet Take 1 tablet (345 mg) by mouth once daily. with a meal. - calcium carbonate/vitamin D3 (CALCIUM + D ORAL) Take 1 tablet by mouth once daily. - ginkgo biloba (GINKOBA ORAL) Take 120 mg by mouth once daily. - MULTI-VITAMIN ORAL Take 1 tablet by mouth once daily. - GLUCOSAMINE SULFATE (GLUCOSAMINE ORAL) Take 1 tablet by mouth once daily. 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 There is a slight chance of developing brain swelling days or months after the Gamma Knife radiosurgery. If you experience nausea, vomiting, severe headache, visual changes, difficulty speaking, a seizure or any other symptom unusual for you, contact your physician immediately or go to the nearest emergency room. These may or may not be symptoms of brain swelling. If you go to a physician or hospital other than the [facility] with any problem related to the Gamma Knife procedure, please call your physician, Dr. Timothy Gonzales at [phone]. After your treatment, you may experience a mild headache. You may take non-aspirin pain medication, such as Tylenol, if you are having any discomfort. Some patients are placed on steroids, such as Decadron, and an antacid, such as Pepcid, following their radiosurgery. Certain conditions require these medications to lessen the chance of swelling around the treated area. When prescribed, these medications are extremely important in the period immediately following your Gamma Knife treatment and must be taken exactly as directed. The Gamma Knife nurse will discuss your particular situation with you. Do not take any decadron for the remainder of today. Please begin following the new decadron regimen below on 02/03/2025: Start the day after your Gamma Knife procedure: Decadron (dexamethasone) 2 mg tablets: Take 4mg (2 tablets) twice a day for 4 days: ( (Breakfast and Lunch), (Friday (Breakfast and Lunch), (Friday (Breakfast and Lunch) and Friday (Breakfast and Lunch), then Take 2mg (1 tablet) three times a day for 2 days: (Friday (Breakfast, Lunch, and Dinner) and Friday (Breakfast, Lunch, and Dinner), then Take 2mg (1 tablet) twice a day for 2 days: (Friday (Breakfast and Lunch) and (Breakfast and Lunch), then Take 2 mg (1 tablet) once a day for 2 days: (Friday (Breakfast) and Friday (Breakfast), then Then stop Decadron. Pepcid (famotidine) 20 mg tablets: Take the Pepcid 20 mg (1 tablet) twice a day while taking the Decadron. Stop Pepcid when you stop the Decadron. Resume all other regular medications. -Taking good care of your general health is an important step to recovery. Continue to eat well and get plenty of rest. If you have any non-urgent questions or concerns, please call your physician, Dr. Timothy Gonzales at [phone] Friday through Friday 8:00 am to 5:00 pm. In the evening or on weekends, call [phone] or toll-free [phone] and ask the screw machine operator to page your neurosurgeon's resident international logistics coordinator. Prescriptions ordered this encounter Disp Refills Start End ALPRAZOLAM 0.5 MG TABLET 02/02/2025 02/02/2025 Route: PO DEXAMETHASONE 4 MG TABLET 02/02/2025 02/02/2025 Route: PO Encounter Status:Closed by ANGELA PANCHAL on 02/02/25 CT BRAIN WO IVCON Observed: 02/02/2025 9:07 AM Status: F Source: [facility] * * *Final Report* * * DATE OF EXAM: Feb 02 2025 9:07AM [facility] 0504 - CT BRAIN WO IVCON / PROCEDURE REASON: Metastasis to brain (HCC) * * * * Physician Interpretation * * * * EXAMINATION: CT BRAIN WO IVCON CLINICAL HISTORY: Metastasis to brain (HCC) History of breast cancer. Prior gamma knife radiosurgery to right occipital and left frontal targets. TECHNIQUE: Serial axial images without IV contrast were obtained from the vertex to the foramen magnum. MQ: CTBWO_3 CT Radiation dose: Integrated Dose-Length Product (DLP) for this visit = 1014 mGy*cm CT Dose Reduction Employed: No dose reduction techniques were required COMPARISON: Localization MRI performed today. Additional MR examinations of the brain January 07, 2025 and 10/07/2024. RESULT: Small areas of interest in the right posterior temporal-occipital region and inferior right cerebellum are below the detection threshold for CT. No new mass effect. No evidence for infarct or hemorrhage. Gross brain volume is within expected limits for age. No evidence for an infiltrative process at the skull base. Paranasal sinus chambers, mastoid air cells and middle ear cavities are clear. IMPRESSION: Localization study. Small areas of interest are below the detection threshold for CT and visible on the localization MR. Drafter: KEVIN Transcribe Date/Time: Feb 02 2025 9:17A Dictated by : MADAI SEQUEIRA MD This examination was interpreted and the report reviewed and electronically signed by: MADAI SEQUEIRA MD on Feb 02 2025 9:19AM EST [id number] PROGRESS Observed: 02/02/2025 9:00 AM Status: COMPLETED Source: [facility] HNO ID: [id number] Author: ALAN RIOS RN Service: Nursing Author Type: Registered Nurse Type: Progress Notes Filed: 02/02/2025 08:40 Note Text: Radiology Service Progress Note DATE OF SERVICE: February 02, 2025 TIME: 8:36 AM PATIENT WEIGHT: 153 LBS PATIENT IDENTITY VERIFICATION COMPLETED USING TWO (2) STANDARD IDENTIFIERS: Name and Date of confirmed by patient verbally. FALL SCREENING: Has the patient had 2 falls in the last year or 1 fall with injury or currently using an Ambulatory Assistive Device (Walker, Cane, Wheelchair, Crutches, etc.)? No PATIENT GENDER DATA: Assigned female at . status: : No status: NO. ALLERGIES: Reviewed and unchanged CONTRAST ALLERGY: No EXAM: MRI - CONTRAST TYPE: GROUP II IV SITE: Ambulatory: A peripheral IV was started in the Left antecubital site with a Angio cath: 22 gauge. and A Saline lock was inserted per protocol IV SITE APPEARANCE: Clean,Dry and Intact SIGNATURE: Alan Rios RN PATIENT NAME: Joyce Robles DATE: February 02, 2025 TIME: 8:36 AM PROGRESS Observed: 02/02/2025 9:00 AM Status: COMPLETED Source: [facility] HNO ID: [id number] Author: ALYCIA LANDA RT(R) Service: Radiology Author Type: Technologist Type: Progress Notes Filed: 02/02/2025 08:48 Note Text: Radiology Service Progress Note PATIENT NAME: Joyce Robles DATE OF SERVICE: February 02, 2025 TIME: 8:47 AM PATIENT IDENTITY VERIFICATION COMPLETED USING TWO (2) IDENTIFIERS: Name and Date of confirmed by patient verbally. FALL SCREENING: Has the patient had 2 falls in the last year or 1 fall with injury or currently using an Ambulatory Assistive Device (Walker, Cane, Wheelchair, Crutches, etc.)? No PATIENT GENDER DATA: Assigned female at . status: : No status: NO. PATIENT RELEVANT IMPLANT DATA REVIEWED: Yes PATIENT PRESENTS WITH AN IMPLANTABLE OR ATTACHED RETAIL BUYER: No RADIOLOGY DEPARTMENT: MR; Exam(s) Completed: Head: Localization. Aromatherapy Administered: No PERIPHERAL IV DATA: Site assessment: Clean,Dry and Intact, Site disposition Discontinued SIGNED BY: RT Clifton(R) February 02, 2025 8:47 AM MRI BRAIN LOCAL W IVCON Observed: 2024 8:57 AM Status: C Source: [facility] * * *Final Report* * * * * * SEE BOTTOM OF REPORT FOR ADDENDED TEXT * * * DATE OF EXAM: Feb 02 2025 8:57AM [facility] 0289 - MRI BRAIN LOCAL W IVCON / PROCEDURE REASON: Metastasis to brain (HCC) * * * * Physician Interpretation * * * * * * * * * * * * ORIGINAL REPORT * * * * * * * * EXAMINATION: MRI BRAIN LOCAL W IVCON HISTORY: Metastasis to brain (HCC) history of breast cancer. Prior gamma knife radiosurgery to right occipital and left frontal targets. TECHNIQUE: Localization brain MRI, 1 mm axial T1 space sequence after gadolinium. MQ: MRBWOW_2 Contrast: 7 mL Elucirem IV COMPARISON: Previous MRI 01/07/2025 and 10/07/2024. RESULT: Vascular enhancement in the left occipital lobe (2:65) clearly correlates with a well-defined cortical vein which is seen to better advantage on the previous scan (14:42). Using co-registration for slice by slice comparison there is very slight residual enhancement at the border zone between the posterior right temporal and adjacent occipital lobe (2:97). Stable small focus of enhancement inferior right cerebellum (2:24). Within limitations of motion artifact on this exam no other areas of abnormal enhancement are identified. IMPRESSION: Stable small focus of enhancement inferior right cerebellum, decreased enhancement along the superficial margin of cortex at the border zone between the posterior right temporal and adjacent occipital lobe. * * * * * * * * ADDENDUM #1 * * * * * * * * Additional punctate focus left temporal lobe (2:63). Some slight heterogeneity of enhancement is suggested in the lateral right temporal lobe (2:92). Co-registration for vessel identification with the volume acquisition from 10/07/2024 does not show any obvious perforators to account for this (13:58 and adjacent contiguous images from the study 10/07/2024). Drafter: KEVIN Transcribe Date/Time: Feb 02 2025 10:06A Dictated by : MADAI SEQUEIRA MD This examination was interpreted and the report reviewed and electronically signed by: MADAI SEQUEIRA MD on Feb 02 2025 9:16AM EST This document has been addended by: MADAI SEQUEIRA MD on Feb 02 2025 10:18AM EST [id number] PROGRESS Observed: 02/02/2025 12:00 AM Status: COMPLETED Source: [facility] HNO ID: [id number] Author: AARTI OLIVARES MD Service: Radiation Oncology Author Type: Physician Type: Progress Notes Filed: 02/02/2025 13:17 Note Text: JOYCE ROBLES [id number] 02/02/2025 [facility] Department of Radiation Oncology [facility] RADIATION ONCOLOGY GAMMA KNIFE SIMULATION NOTE DATE OF SIMULATION: 02/02/2025 MACHINE: Gamma Knife DIAGNOSIS: brain metastases AREA:Brain PATIENT POSITION: Supine. CONTRAST: None PROTOCOL: None FIXATION DEVICE: In order to achieve accurate and reproducible treatments, the patient is immobilized with custom 3-point mask and mold care. PROCEDURE: A time-out was conducted and recorded by the therapist. Patient was simulated on the Gamma Knife for SRS therapy. ASSESSMENT/PLAN: Patient tolerated simulation procedure well. Treatments will be initiated after treatment planning. Electronically Signed Aarti Olivares M.D. 51:17 PM PROGRESS Observed: 02/02/2025 12:00 AM Status: COMPLETED Source: [facility] HNO ID: [id number] Author: AARTI OLIVARES MD Service: Radiation Oncology Author Type: Physician Type: Progress Notes Filed: 02/02/2025 13:17 Note Text: JOYCE ROBLES [id number] 02/02/2025 [facility] GAMMA KNIFE STEREOTACTIC RADIOSURGERY (SRS) DAILY PROCEDURE NOTE FRACTION NUMBER: 1 of 1 for all sites CUMULATIVE DOSE: 24Gy (Out of a planned 24Gy) for R temp 24Gy (Out of a planned 24Gy) for L temp 24Gy (Out of a planned 24Gy) R parietal 24Gy (Out of a planned 24Gy) R cerebellum DIAGNOSIS: brain metastases PROCEDURE: Under my direct supervision the patient was set up on the treatment table and all treatment parameters were verified, including patient identity and treatment site. CBCT obtained which was co-registered using the treatment planning system. Adaptive replan was verified and approved. Once the beam was turned on, the patient position and target location were continuously monitored during delivery of the SRS using infrared tracking. At all points of decision-making with regard to patient setup, I conferred with the medical authorization specialist to approve the final setup. I was available throughout the SRS treatment to manage the execution of the treatment and make real-time adjustments in response to patient motion, target movement, or equipment issues to ensure accuracy and safety. The patient was evaluated by me after treatment and was discharged in stable condition. TREATMENT VOLUMES: GTV (Defined by neurosurgeon) PHYSICIST NAME: Alonso John, PhD INTERVENTIONS: None ASSESSMENT/PLAN: Patient tolerated procedure well. We will continue as planned. Electronically Signed AARTI OLIVARES M.D. 51:17 PM PROGRESS Observed: 02/02/2025 12:00 AM Status: COMPLETED Source: [facility] HNO ID: [id number] Author: AARTI OLIVARES MD Service: Radiation Oncology Author Type: Physician Type: Progress Notes Filed: 02/02/2025 13:18 Note Text: JOYCE ROBLES [id number] 02/02/2025 [facility] Department of Radiation Oncology [facility] RADIATION ONCOLOGY: COMPLETION NOTE START DATE OF TREATMENT: February 02, 2025 END DATE OF TREATMENT: February 02, 2025 UNIT: Gamma Knife AREA TREATED: 1) r temp 2) l temp 3) r pariet 4) r cereb DISEASE: brain metastases DELIVERED DOSE: 1. 2400.0 cGy was prescribed to the 89% isodose line, which covered 100% of the target. The plan utilized 1 shot using 4 mm sector. GTV volume = 0.009 cm3. Maximum dose = 2700.0 cGy. Maximum diameter = 0.37 cm. MD/PD = 1.125. PIV/CTV = 1.889. Gradient Index = 7.1. Number of Fractions = 1. 2. 2400.0 cGy was prescribed to the 85% isodose line, which covered 100% of the target. The plan utilized 2 shots using 8 mm and 4 mm sectors. GTV volume = 0.04 cm3. Maximum dose = 2820.0 cGy. Maximum diameter = 0.48 cm. MD/PD = 1.175. PIV/CTV = 2. Gradient Index = 7.1. Number of Fractions = 1. 3. 2400.0 cGy was prescribed to the 59% isodose line, which covered 100% of the target. The plan utilized 10 shots using 8 mm and 4 mm sectors. GTV volume = 0.192 cm3. Maximum dose = 4070.0 cGy. Maximum diameter = 0.7 cm. MD/PD = 1.696. PIV/CTV = 2.115. Gradient Index = 3.4. Number of Fractions = 1. 4. 2400.0 cGy was prescribed to the 88% isodose line, which covered 100% of the target. The plan utilized 1 shot using 8 mm sector. GTV volume = 0.081 cm3. Maximum dose = 2730.0 cGy. Maximum diameter = 0.53 cm. MD/PD = 1.137. PIV/CTV = 2.346. Gradient Index = 3.8. Number of Fractions = 1. 4 separate treatment plans were devised. ELAPSED TREATMENT TIME: 60 minutes (one session). TOLERANCE: Excellent. RESPONSE: To be evaluated. REMARKS: The patient will follow-up in 2 months with repeat MRI scan. Authorized user was present during the entire treatment. The total treatment time was within 10% of the written directive. Staff Physician Aarti Olivares M.D./herman :18 PM Electronically Signed SD Observed: 01/25/2025 12:00 AM Status: COMPLETED Source: [facility] Telephone (NSCAMN) JOYCE ROBLES ([id number]) 1955 F Date Time Provider Department 01/25/25 IZZY SCHMIDT NSCAMN During your visit today, we recorded the following information about you: Izzy Schmidt, RN 01/25/2025 2:26 PM Signed Called patient regarding [facility] scheduling, offered and accepted Friday02/02/2025. Patient requested latest possible slot as she is traveling far. Will inform [facility] team regarding this request. Patient verbalized understanding and expressed appreciation. Izzy Schmidt RN, BSN Spinning Operator [facility] Allergies As of Date: 01/25/2025 Noted Allergy Reaction ZOFRAN (ONDANSETRON) 07/23/2024 14 - Other: See Comments Comments: Migraines. DEMERAL (MEPERIDINE) 04/01/2016 8 - GI Upset PERCOCET (OXYCODONE-ACETAMINOPHEN)04/01/2016 8 - GI Upset Date Reviewed: 01/18/2025 Reviewed by: Kely Sotomayor RD - Fully Assessed Reason for Visit: Spinning Operator - Other [0473] Cmt: [facility] scheduling for 02/02/2025 Prescriptions as of 01/25/2025 - linaCLOtide (LINZESS) 72 mcg capsule Take 1 capsule by mouth once daily. Take capsule on an empty stomach at least 30 minutes before a meal at the same time each day, alternating with 2 capsules once a day. Capsule should be swallowed whole. DO NOT chew or crush. - OTC PRODUCT Vitamin D/Vitamin K2/Turmeric: Take one tablet by mouth once daily. - OLANZapine (ZYPREXA) 5 mg tablet Take 1 tablet by mouth daily at bedtime. - cinnamon bark (CINNAMON ORAL) Take 1 tablet by mouth once daily. - apixaban (ELIQUIS) 5 mg tab(s) Take 1 tablet by mouth two times a day. - elacestrant (ORSERDU) 345 mg tablet Take 1 tablet (345 mg) by mouth once daily. with a meal. - calcium carbonate/vitamin D3 (CALCIUM + D ORAL) Take 1 tablet by mouth once daily. - ginkgo biloba (GINKOBA ORAL) Take 120 mg by mouth once daily. - MULTI-VITAMIN ORAL Take 1 tablet by mouth once daily. - GLUCOSAMINE SULFATE (GLUCOSAMINE ORAL) Take 1 tablet by mouth once daily. 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 Author Type: Physician Type: Progress Notes Filed: 01/24/2025 15:21 Note Text: [facility] Virtual Follow-Up Visit We had a virtual visit conducted via [employer]. I received consent from the patient to perform the visit using this platform. I have communicated my name and active licensure. The patient's identity and physical location were verified at the time of this visit. Either the patient or their legal textiles sales representative has been informed of the risks and benefits of -- and alternatives to -- treatment through a remote evaluation and consents to proceed with the evaluation remotely. 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 Pathology showing 2.5 cm ER/IA positive, HER2 negative tumor in the left breast with micro metastasis in 1 of 3 sentinel lymph nodes. Grade 3. LVSI was present. 08/2016 - Completed adjuvant radiation 50Gy/25fx whole left breast + 16 Gy/8fx scar boost with Dr. Li at OSH 10/2016 - Started on aromatase inhibitor, stopped 02/2024 - Shortness of breath during trip to [place] , prompted CTA, which showed pulmonary emboli and pleural effusion. 03/14/24 - Thoracentesis. Cytology showed malignant cells consistent with breast primary. 04/27/24 - PET showing bony metastases 04/28/24 - MRI brain showing small focal enhancing nodule measuring 4 mm along the posterior lateral aspect of the right occipital lobe with minimal surrounding edema 05/14/24 - started on olaparib 06/16/2024 - S/p Gamma Knife Radiosurgery 1) r occ 2) lt fr 01/20/2025 - new liver, cervical, thoracic and lumbar metastasis, Left renal mass suspicious for primary neoplasm. January 23, 2025 update: She reports continued memory problems in regards to dates and names since her last radiation. Last Chemo: Elacestrant Current Steroids dose: nil. Current AED Dose: nil. 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) 10/07/2024 Essential hypertension Hypoxemia Ovarian cancer (HCC) Pulmonary embolism (HCC) Past Surgical History: PAST SURGICAL HISTORY Procedure Laterality Date BSO W/TIESHA AND OMENECTOMY FOR MALIGNANCY 07/14/2012 BX BREAST W/DEVICE 1ST LESION ULTRASOUND GUID Left 04/04/2016 U/S Bx outer mid left breast BX/EXC LYMPH NODE OPEN DEEP AXILLARY NODE Left 04/29/2016 HYSTERECTOMY HX 2009 LX PARTIAL COLECTOMY 07/14/2012 MASTECTOMY, PARTIAL Left 04/29/2016 PAST SURGICAL HISTORY OF Left ablation of vein of left leg for venous reflux Family History: FAMILY HISTORY Problem Relation Age of Onset Hypertension Mother other (pulmonary embolism) Mother Stroke Father Heart Brother Heart Attack Brother Colon Cancer Maternal Grandmother Heart Maternal Grandfather Prostate Cancer Paternal Grandfather Breast Cancer Maternal Aunt Cancer Maternal Aunt liver Ovarian cancer Maternal cousin Breast Cancer Paternal Aunt Breast Cancer Paternal cousin Breast Cancer Paternal cousin Social History Tobacco Use Smoking status: Never Smokeless tobacco: Never Vaping Use Vaping status: Never Used Substance Use Topics Alcohol use: Not Currently Comment: occ Drug use: Never Allergies: Zofran [Ondansetron], Demeral [Meperidine], and Percocet [Oxycodone-Acetaminophen] Current Outpatient Medications Medication Sig linaCLOtide (LINZESS) 72 mcg capsule Take 1 capsule by mouth once daily. Take capsule on an empty stomach at least 30 minutes before a meal at the same time each day, alternating with 2 capsules once a day. Capsule should be swallowed whole. DO NOT chew or crush. OTC PRODUCT Vitamin D/Vitamin K2/Turmeric: Take one tablet by mouth once daily. OLANZapine (ZYPREXA) 5 mg tablet Take 1 tablet by mouth daily at bedtime. cinnamon bark (CINNAMON ORAL) Take 1 tablet by mouth once daily. apixaban (ELIQUIS) 5 mg tab(s) Take 1 tablet by mouth two times a day. elacestrant (ORSERDU) 345 mg tablet Take 1 tablet (345 mg) by mouth once daily. with a meal. calcium carbonate/vitamin D3 (CALCIUM + D ORAL) Take 1 tablet by mouth once daily. ginkgo biloba (GINKOBA ORAL) Take 120 mg by mouth once daily. MULTI-VITAMIN ORAL Take 1 tablet by mouth once daily. GLUCOSAMINE SULFATE (GLUCOSAMINE ORAL) Take 1 tablet by mouth once daily. No current facility-administered medications for this visit. ROS Neurological: No complaint of headache. No complaint of tinnitus. No complaint of decreased hearing. No complaint of diplopia. No complaints of decreased visual acuity. No complaint of arm/leg numbness. No problem with limb coordination. No complaint of syncope, seizures or disorientation. Objective Physical Exam: There were no vitals taken for this visit. General appearance: well appearing, in no acute distress, alert. Appears a little delayed in general conversation. Head: NC/AT PE Neuro: AANDO x3. CN II-XII grossly intact. Motor: appropriate muscle bulk, tone, and strength. She reports some generalized feeling of weakness. Sensorium: grossly intact. Gait: Unremarkable KPS and ECOG Provider Data Form No data to display Labs: Latest Ref Rng AND Units 11/22/2024 12/20/2024 01/18/2025 CBC WBC 3.70 - 11.00 k/uL 8.88 6.49 7.84 RBC 3.90 - 5.20 m/uL 4.23 4.07 4.15 Hemoglobin 11.5 - 15.5 g/dL 13.7 13.1 13.5 Hematocrit 36.0 - 46.0 % 41.5 40.1 40.9 MCV 80.0 - 100.0 fL 98.1 98.5 98.6 MCH 26.0 - 34.0 pg 32.4 32.2 32.5 MCHC 30.5 - 36.0 g/dL 33.0 32.7 33.0 RDW-CV 11.5 - 15.0 % 12.6 12.8 12.8 Platelet Count 150 - 400 k/uL 226 212 236 MPV 9.0 - 12.7 fL 9.5 9.2 9.0 Baso% % 0.3 0.6 0.4 Abs Neut (ANC) 1.45 - 7.50 k/uL 7.00 4.79 6.09 Abs Lymph 1.00 - 4.00 k/uL 1.12 1.19 1.16 Abs Pacific <0.87 k/uL 0.69 0.41 0.50 Abs Eosin <0.46 k/uL <0.03 0.03 0.03 Abs Baso <0.11 k/uL 0.03 0.04 0.03 NRBC /100 WBC 0.0 0.0 0.0 Latest Ref Rng AND Units 11/22/2024 12/20/2024 01/18/2025 CMP Sodium 136 - 144 mmol/L 138 139 137 Potassium 3.7 - 5.1 mmol/L 3.9 4.2 4.0 Chloride 98 - 107 mmol/L 106 106 106 CO2 22 - 30 mmol/L 27 23 23 Glucose 74 - 99 mg/dL 143 140 145 BUN 7 - 21 mg/dL 17 17 16 Creatinine 0.58 - 0.96 mg/dL 0.80 0.80 0.79 EGFR >=60 mL/min/1.73m? 79 79 81 Protein, Total 6.3 - 8.0 g/dL 5.6 5.4 5.5 Albumin 3.9 - 4.9 g/dL 3.1 3.2 3.0 Calcium 8.5 - 10.2 mg/dL 9.0 9.1 9.3 Bilirubin, Total 0.2 - 1.3 mg/dL 0.5 0.3 0.3 AST 13 - 35 U/L 19 17 16 ALT 7 - 38 U/L 12 11 9 Alkaline Phosphatase 34 - 123 U/L 79 69 72 Imaging: MRI Report MRI BRAIN WO/W IVCON Exam End: 01/07/2025 10:16 AM (Final result) Narrative: * * *Final Report* * * DATE OF EXAM: Jan 07 2025 10:05AM [facility] [id number] - MRI BRAIN WO/W IVCON / PROCEDURE REASON: Metastasis to brain (HCC) * * * * Physician Interpretation * * * * EXAMINATION: MRI BRAIN WO/W IVCON CLINICAL HISTORY: Metastasis to brain (HCC) Previous gamma knife right occipital and left frontal. History of breast cancer. TECHNIQUE: Routine brain MRI protocol without and with contrast including diffusion images. Dynamic susceptibility contrast MR perfusion imaging also performed. MQ: [id number] Contrast: 13 mL Dotarem IV COMPARISON: 08/05/2024 and 10/07/2024 RESULT: Acute Change: There is no evidence of restricted diffusion to suggest an acute infarct. Hemorrhage: No evidence of prior parenchymal hemorrhage on the susceptibility weighted images. Mass Lesion/ Mass Effect: Newly apparent leptomeningeal enhancement in the right parietal convexity (axial postcontrast series 14 images 65-70). Tiny linear focus of enhancement inferior right cerebellum is either parenchymal or leptomeningeal (14:14). No significant mass effect. No focally elevated cerebral blood volume though the enhancing regions are likely below the resolution of perfusion imaging. Chronic Change: Scattered punctate foci of increased T2 and FLAIR signal are noted in the supratentorial white matter which is a nonspecific finding and may represent the subtle sequelae of a remote insult. Parenchyma: No significant volume loss for age. The brain parenchyma is otherwise within normal limits of signal intensity and morphology. Ventricles: Normal caliber and morphology. Skull Base: Hypothalamic and pituitary region are grossly normal. Craniocervical junction is normal. No significant marrow replacement process. Vasculature: Major intracranial arterial structures, and dural venous sinuses show typical flow void, suggesting patency by spin echo criteria. Other: The visualized paranasal sinuses and mastoid air cells are clear. The orbits and extracranial soft tissues are unremarkable. Impression: IMPRESSION: Newly leptomeningeal disease right parietal convexity. New leptomeningeal disease versus tiny parenchymal metastasis inferior right cerebellum. No evidence of acute intracranial process or mass effect. [facility] Transcribe Date/Time: Jan 07 2025 11:29A Dictated by : SHARITA PALOMARES MD This examination was interpreted and the report reviewed and electronically signed by: SHARITA PALOMARES MD on Jan 07 2025 11:42AM EST Data Review: Personal review of medical records: I reviewed the [facility] chart. Personal review of MRI imaging from 01/07/2025, 10/07/2024, 08/05/2024, 06/16/2025: New interval development of right parietal contrast enhancement, linear along sulci or DD intraparenchymal. A second previously untreated suspicious contrast enhancing lesion is seen in the lower right cerebellar lobe. Multifocal: Yes Subependymal spread: Yes Assessment AND Plan Diagnosis: New leptomeningeal disease right parietal / cerebellar vs punctate parenchymal metastatic lesion. Treatment Options and Risks: We discussed the management options, along with their respective risks and benefits,with the patient. We reviewed the radiographic findings outlined above. We recommend targeted treatment with Gamma Knife Radiosurgery to the new lesion(s). We discussed the mask-based Gamma Knife procedure. The morning of the procedure an IV is started and an MRI, CT scan, and cone-beam CT scan (on Gamma Knife itself) obtained, and a thermoplastic mask is made. The images are transferred to our planning computer where I fuse the images and define regions to be treated (or not). I then perform a plan. by applying different size, intensities and locations of focused radiation to the lesions such that the end result is that the treatment dose of radiation nearly matches the size, shape and location of the lesions. After imaging and mask-making she can wander until treatment time. When I have completed my portion of the plan, the radiation oncologist reviews the plan and assigns a dose of radiation. The radiation physicist reviews the plan and confirms the machine is working properly. Treatment typically is in the late morning or early afternoon. The patient lies down on the treatment couch and the mask is part of a positioning device that will direct, with great accuracy, up to 192 beams of radiation to converge at the point I picked on the computer. The staff will leave the room prior to treatment and the patient will be monitored by several television cameras and 2 intercom systems. The patient will then slide into the device up to their lower chest for the duration of treatment, and then exit. Once the treatment is completed, the patient will be taken to the their room where they will be observed and postoperative and follow-up instructions will be given prior to discharge. We had an informed consent discussion. Recommendations: As above Medicines: No Change Instructions: Continue present activity. See Radiation Oncology (we will arrange). Report for Gamma Knife as instructed Address spine/bone, liver issues with Dr. Albright. See if you can get appointment moved up. Gerard Moses MD 3:08 PM 01/24/2025 [facility] No resident was available to participate in this visit. I saw and evaluated the patient. I reviewed the Fellow 's note and amended as necessary. Medical Decision Making: Problems: Moderate: 1+ chronic illnesses with change Data: Unique test result(s) reviewed: 3+ Unique test(s) ordered: 2 Risk: Moderate: Moderate risk from testing/treatment Medical Decision Making Level: 4 - Moderate Swapnil Gonzales MD Electronically signed January 24, 2025 3:16 PM cc: Teetee Michaud MD - Electronically copied MRI THORACIC SPINE WO/W IVCON Observed: 01/20/2025 10:30 AM Status: F Source: [facility] * * *Final Report* * * DATE OF EXAM: Jan 20 2025 10:30AM [facility] [id number] - MRI THORACIC SPINE WO/W IVCON / PROCEDURE REASON: multiple diagnoses * * * * Physician Interpretation * * * * EXAMINATION: MRI CERVICAL SPINE WO/W IVCON, MRI THORACIC SPINE WO/W IVCON, MRI LUMBAR SPINE WO/W IVCON CLINICAL HISTORY: Metastasis to brain (HCC) Leptomeningeal enhancement on MRI of brain TECHNIQUE: Routine cervical, thoracic, and lumbosacral spine MR protocol without and with intravenous gadolinium. MQ: [id number] Contrast: IV administration of 6.5 ml of Elucirem COMPARISON: None. RESULT: CERVICAL: Counting reference: Craniocervical junction. Anatomic Variants: None. Localizer images: No additional findings. Alignment: Straightening of the cervical lordosis. Craniocervical junction: Craniocervical junction is normal. Cord: The cervical spinal cord is within normal limits of signal intensity and morphology. No pathologic intradural enhancement. Bone marrow signal/fracture: Multiple intrinsic T1 hypointense, STIR hyperintense, enhancing marrow replacing foci within the inferior C2 and superior and inferior C7 vertebra with compatible with osseous metastases. No pathologic fracture or extraosseous extension of disease.. Cervical soft tissues: The paraspinal soft tissues are within normal limits. Canal and foramina: Multilevel shallow disc bulges/protrusions minimally indent the ventral thecal sac without significant spinal canal compromise or evidence of cord compression. No significant neuroforaminal narrowing. THORACIC: Counting reference: Craniocervical and lumbosacral junctions. For the purposes of this report, L4-5 is considered the level of the iliac crest and assume there are 5 lumbar-type vertebrae. Anatomic variant: None. Localizer images: Large RIGHT and moderate LEFT pleural effusions. Compressive atelectasis and/or superimposed consolidation in the RIGHT lung base. Alignment: Dextroconvex curvature apex at T6 and levoconvex curvature apex at T9-T10. Cord: The thoracic spinal cord is within normal limits of signal intensity and morphology. No pathologic intradural enhancement. Bone marrow signal/fracture: Numerous intrinsic T1 hypointense, T2/STIR hyperintense, enhancing marrow replacing lesions throughout all vertebral body levels of the visualized thoracic spine as well as scattered throughout the posterior elements and transverse processes of the midthoracic spine compatible with osseous metastases. Subacute appearing likely pathologic compression deformity of the T7 vertebra with associated 30% anterior vertebral body height loss at this level. No other evidence of pathologic fracture or extraosseous extension of disease. Thoracic soft tissues: The paraspinal soft tissues are within normal limits. Canal and foramina: No significant thoracic canal or foraminal stenosis within the constraints of the study. LUMBAR: Counting reference: Craniocervical and lumbosacral junctions. For the purposes of this report, L4-5 is considered the level of the iliac crest and there are 5 lumbar-type vertebrae. Anatomic variant: Transitional S1 vertebral body. Localizer images: Multifocal T2 hyperintense lesions throughout the liver which may represent cysts and/or cavernous hemangiomas. Innumerable additional more vague T2 hyperintense lesions throughout the liver compatible with intrahepatic metastases. Heterogeneous T2 hyperintense complicated partially cystic lesion within the LEFT upper pole kidney concerning for primary renal neoplasm. 4.9 cm cystic lesion within the LEFT adnexa with eccentric ill-defined soft tissue component (2:9). Alignment: Dextroconvex curvature apex at L2 and levoconvex curvature apex at L4-5. Low-grade RIGHT lateral listhesis of L2 on L3 and minimally L3 on L4. Minimal degenerative retrolisthesis of L1 on L2 and minimally L2 on L3. Grade 1 anterolisthesis of L4 on L5. Bone marrow signal/fracture: Numerous intrinsic T1 hypointense, T2/STIR hyperintense, enhancing marrow replacing lesions throughout all levels of the visualized lumbar spine vertebral bodies and scattered throughout the posterior elements as well as multiple foci throughout the visualized sacrum and bony pelvis compatible with osseous metastases. No evidence of pathologic fracture or extraosseous extension of disease. Conus: The conus terminates at L2 and is within normal limits of morphology and signal. Normal course and caliber of the descending cauda equina nerve roots. No evidence of abnormal intradural enhancement. Paraspinal soft tissues: Paraspinal soft tissues are within normal limits. Canal and foramina: Multilevel disc bulges and ligamentum flavum thickening with facet arthropathy resulting in up to severe spinal canal narrowing at L4-L5 and moderate spinal canal narrowing at L3-4. Multilevel facet arthropathy with up to mild bilateral neuroforaminal narrowing at L4-5 on the RIGHT. Sacrum and iliac wings: The visualized sacrum and iliac wings are otherwise within normal limits. The presacral soft tissues are normal in appearance. IMPRESSION: Numerous osseous metastases throughout the cervical, thoracic, and lumbar spine as well as the visualized sacrum and bony pelvis. No evidence of extraosseous extension of disease. Subacute likely pathologic compression deformity of the T7 vertebra. No other pathologic fracture with evidence of extraosseous extension of disease. No evidence of leptomeningeal disease in the cervical, thoracic, or lumbar spine. Multilevel lumbar degenerative spondylosis resulting in up to severe spinal canal narrowing at L4-5. No other significant spinal canal or neuroforaminal stenosis throughout the remainder cervical, thoracic, or lumbar spine. Innumerable hepatic metastases. MRI liver without and with contrast recommended for further characterization. LEFT upper pole renal mass concerning for primary renal neoplasm. This may also be further assessed on MRI liver. Indeterminate LEFT adnexal cystic lesion with eccentric soft tissue component. MRI female pelvis without and with contrast recommended for further assessment. Large RIGHT and moderate LEFT pleural effusions with compressive atelectasis and/or superimposed consolidation in the RIGHT lung base. Cervical Anatomic Variant: None. Assume 7 cervical vertebrae with counting from the craniocervical junction. Anatomic Thoracic/Lumbar Variant: Transitional S1 vertebral body. L4-5 is considered the level of the iliac crest and there are 5 lumbar-type vertebrae. ACTIONABLE RESULT: FOLLOW-UP Acuity: Actionable Findings: Liver Routing Code: LV_1 Recommendation: MRI LIVER WO/W IVCON (add Dotarem in comments) Time Frame: At the discretion of the clinical team. COMMUNICATION: Results will be communicated with the ordering provider via [employer] staff message or phone message by [facility] within 2 business days of report finalization. --END OF FINDING-- Acuity: Actionable Findings: Female reproductive tract (pelvis, adnexa) Routing code: WH_1 Recommendation: MRI FEMALE PELVIS WO/W IV CONTRAST TimeFrame: at the discretion of the clinical team. --END OF FINDING-- Drafter: KEVIN Transcribe Date/Time: Jan 20 2025 11:02A Dictated by : EDGAR MCCOY MD This examination was interpreted and the report reviewed and electronically signed by: EDGAR MCCOY MD on Jan 20 2025 11:31AM EST [id number] ACTIONABLE MRI CERVICAL SPINE WO/W IVCON Observed: 01/20/2025 10:30 AM Status: F Source: [facility] * * *Final Report* * * DATE OF EXAM: Jan 20 2025 10:30AM [facility] 0298 - MRI CERVICAL SPINE WO/W IVCON / PROCEDURE REASON: multiple diagnoses * * * * Physician Interpretation * * * * EXAMINATION: MRI CERVICAL SPINE WO/W IVCON, MRI THORACIC SPINE WO/W IVCON, MRI LUMBAR SPINE WO/W IVCON CLINICAL HISTORY: Metastasis to brain (HCC) Leptomeningeal enhancement on MRI of brain TECHNIQUE: Routine cervical, thoracic, and lumbosacral spine MR protocol without and with intravenous gadolinium. MQ: MRCTLWO_3 Contrast: IV administration of 6.5 ml of Elucirem COMPARISON: None. RESULT: CERVICAL: Counting reference: Craniocervical junction. Anatomic Variants: None. Localizer images: No additional findings. Alignment: Straightening of the cervical lordosis. Craniocervical junction: Craniocervical junction is normal. Cord: The cervical spinal cord is within normal limits of signal intensity and morphology. No pathologic intradural enhancement. Bone marrow signal/fracture: Multiple intrinsic T1 hypointense, STIR hyperintense, enhancing marrow replacing foci within the inferior C2 and superior and inferior C7 vertebra with compatible with osseous metastases. No pathologic fracture or extraosseous extension of disease.. Cervical soft tissues: The paraspinal soft tissues are within normal limits. Canal and foramina: Multilevel shallow disc bulges/protrusions minimally indent the ventral thecal sac without significant spinal canal compromise or evidence of cord compression. No significant neuroforaminal narrowing. THORACIC: Counting reference: Craniocervical and lumbosacral junctions. For the purposes of this report, L4-5 is considered the level of the iliac crest and assume there are 5 lumbar-type vertebrae. Anatomic variant: None. Localizer images: Large RIGHT and moderate LEFT pleural effusions. Compressive atelectasis and/or superimposed consolidation in the RIGHT lung base. Alignment: Dextroconvex curvature apex at T6 and levoconvex curvature apex at T9-T10. Cord: The thoracic spinal cord is within normal limits of signal intensity and morphology. No pathologic intradural enhancement. Bone marrow signal/fracture: Numerous intrinsic T1 hypointense, T2/STIR hyperintense, enhancing marrow replacing lesions throughout all vertebral body levels of the visualized thoracic spine as well as scattered throughout the posterior elements and transverse processes of the midthoracic spine compatible with osseous metastases. Subacute appearing likely pathologic compression deformity of the T7 vertebra with associated 30% anterior vertebral body height loss at this level. No other evidence of pathologic fracture or extraosseous extension of disease. Thoracic soft tissues: The paraspinal soft tissues are within normal limits. Canal and foramina: No significant thoracic canal or foraminal stenosis within the constraints of the study. LUMBAR: Counting reference: Craniocervical and lumbosacral junctions. For the purposes of this report, L4-5 is considered the level of the iliac crest and there are 5 lumbar-type vertebrae. Anatomic variant: Transitional S1 vertebral body. Localizer images: Multifocal T2 hyperintense lesions throughout the liver which may represent cysts and/or cavernous hemangiomas. Innumerable additional more vague T2 hyperintense lesions throughout the liver compatible with intrahepatic metastases. Heterogeneous T2 hyperintense complicated partially cystic lesion within the LEFT upper pole kidney concerning for primary renal neoplasm. 4.9 cm cystic lesion within the LEFT adnexa with eccentric ill-defined soft tissue component (2:9). Alignment: Dextroconvex curvature apex at L2 and levoconvex curvature apex at L4-5. Low-grade RIGHT lateral listhesis of L2 on L3 and minimally L3 on L4. Minimal degenerative retrolisthesis of L1 on L2 and minimally L2 on L3. Grade 1 anterolisthesis of L4 on L5. Bone marrow signal/fracture: Numerous intrinsic T1 hypointense, T2/STIR hyperintense, enhancing marrow replacing lesions throughout all levels of the visualized lumbar spine vertebral bodies and scattered throughout the posterior elements as well as multiple foci throughout the visualized sacrum and bony pelvis compatible with osseous metastases. No evidence of pathologic fracture or extraosseous extension of disease. Conus: The conus terminates at L2 and is within normal limits of morphology and signal. Normal course and caliber of the descending cauda equina nerve roots. No evidence of abnormal intradural enhancement. Paraspinal soft tissues: Paraspinal soft tissues are within normal limits. Canal and foramina: Multilevel disc bulges and ligamentum flavum thickening with facet arthropathy resulting in up to severe spinal canal narrowing at L4-L5 and moderate spinal canal narrowing at L3-4. Multilevel facet arthropathy with up to mild bilateral neuroforaminal narrowing at L4-5 on the RIGHT. Sacrum and iliac wings: The visualized sacrum and iliac wings are otherwise within normal limits. The presacral soft tissues are normal in appearance. IMPRESSION: Numerous osseous metastases throughout the cervical, thoracic, and lumbar spine as well as the visualized sacrum and bony pelvis. No evidence of extraosseous extension of disease. Subacute likely pathologic compression deformity of the T7 vertebra. No other pathologic fracture with evidence of extraosseous extension of disease. No evidence of leptomeningeal disease in the cervical, thoracic, or lumbar spine. Multilevel lumbar degenerative spondylosis resulting in up to severe spinal canal narrowing at L4-5. No other significant spinal canal or neuroforaminal stenosis throughout the remainder cervical, thoracic, or lumbar spine. Innumerable hepatic metastases. MRI liver without and with contrast recommended for further characterization. LEFT upper pole renal mass concerning for primary renal neoplasm. This may also be further assessed on MRI liver. Indeterminate LEFT adnexal cystic lesion with eccentric soft tissue component. MRI female pelvis without and with contrast recommended for further assessment. Large RIGHT and moderate LEFT pleural effusions with compressive atelectasis and/or superimposed consolidation in the RIGHT lung base. Cervical Anatomic Variant: None. Assume 7 cervical vertebrae with counting from the craniocervical junction. Anatomic Thoracic/Lumbar Variant: Transitional S1 vertebral body. L4-5 is considered the level of the iliac crest and there are 5 lumbar-type vertebrae. ACTIONABLE RESULT: FOLLOW-UP Acuity: Actionable Findings: Liver Routing Code: LV_1 Recommendation: MRI LIVER WO/W IVCON (add Dotarem in comments) Time Frame: At the discretion of the clinical team. COMMUNICATION: Results will be communicated with the ordering provider via [employer] staff message or phone message by [facility] within 2 business days of report finalization. --END OF FINDING-- Acuity: Actionable Findings: Female reproductive tract (pelvis, adnexa) Routing code: WH_1 Recommendation: MRI FEMALE PELVIS WO/W IV CONTRAST TimeFrame: at the discretion of the clinical team. --END OF FINDING-- Drafter: KEVIN Transcribe Date/Time: Jan 20 2025 11:02A Dictated by : EDGAR MCCOY MD This examination was interpreted and the report reviewed and electronically signed by: EDGAR MCCOY MD on Jan 20 2025 11:31AM EST [id number] ACTIONABLE MRI LUMBAR SPINE WO/W IVCON Observed: 10:30 AM Status: F Source: [facility] * * *Final Report* * * DATE OF EXAM: Jan 20 2025 10:30AM [facility] 0304 - MRI LUMBAR SPINE WO/W IVCON / PROCEDURE REASON: multiple diagnoses * * * * Physician Interpretation * * * * EXAMINATION: MRI CERVICAL SPINE WO/W IVCON, MRI THORACIC SPINE WO/W IVCON, MRI LUMBAR SPINE WO/W IVCON CLINICAL HISTORY: Metastasis to brain (HCC) Leptomeningeal enhancement on MRI of brain TECHNIQUE: Routine cervical, thoracic, and lumbosacral spine MR protocol without and with intravenous gadolinium. MQ: MRCTLWO_3 Contrast: IV administration of 6.5 ml of Elucirem COMPARISON: None. RESULT: CERVICAL: Counting reference: Craniocervical junction. Anatomic Variants: None. Localizer images: No additional findings. Alignment: Straightening of the cervical lordosis. Craniocervical junction: Craniocervical junction is normal. Cord: The cervical spinal cord is within normal limits of signal intensity and morphology. No pathologic intradural enhancement. Bone marrow signal/fracture: Multiple intrinsic T1 hypointense, STIR hyperintense, enhancing marrow replacing foci within the inferior C2 and superior and inferior C7 vertebra with compatible with osseous metastases. No pathologic fracture or extraosseous extension of disease.. Cervical soft tissues: The paraspinal soft tissues are within normal limits. Canal and foramina: Multilevel shallow disc bulges/protrusions minimally indent the ventral thecal sac without significant spinal canal compromise or evidence of cord compression. No significant neuroforaminal narrowing. THORACIC: Counting reference: Craniocervical and lumbosacral junctions. For the purposes of this report, L4-5 is considered the level of the iliac crest and assume there are 5 lumbar-type vertebrae. Anatomic variant: None. Localizer images: Large RIGHT and moderate LEFT pleural effusions. Compressive atelectasis and/or superimposed consolidation in the RIGHT lung base. Alignment: Dextroconvex curvature apex at T6 and levoconvex curvature apex at T9-T10. Cord: The thoracic spinal cord is within normal limits of signal intensity and morphology. No pathologic intradural enhancement. Bone marrow signal/fracture: Numerous intrinsic T1 hypointense, T2/STIR hyperintense, enhancing marrow replacing lesions throughout all vertebral body levels of the visualized thoracic spine as well as scattered throughout the posterior elements and transverse processes of the midthoracic spine compatible with osseous metastases. Subacute appearing likely pathologic compression deformity of the T7 vertebra with associated 30% anterior vertebral body height loss at this level. No other evidence of pathologic fracture or extraosseous extension of disease. Thoracic soft tissues: The paraspinal soft tissues are within normal limits. Canal and foramina: No significant thoracic canal or foraminal stenosis within the constraints of the study. LUMBAR: Counting reference: Craniocervical and lumbosacral junctions. For the purposes of this report, L4-5 is considered the level of the iliac crest and there are 5 lumbar-type vertebrae. Anatomic variant: Transitional S1 vertebral body. Localizer images: Multifocal T2 hyperintense lesions throughout the liver which may represent cysts and/or cavernous hemangiomas. Innumerable additional more vague T2 hyperintense lesions throughout the liver compatible with intrahepatic metastases. Heterogeneous T2 hyperintense complicated partially cystic lesion within the LEFT upper pole kidney concerning for primary renal neoplasm. 4.9 cm cystic lesion within the LEFT adnexa with eccentric ill-defined soft tissue component (2:9). Alignment: Dextroconvex curvature apex at L2 and levoconvex curvature apex at L4-5. Low-grade RIGHT lateral listhesis of L2 on L3 and minimally L3 on L4. Minimal degenerative retrolisthesis of L1 on L2 and minimally L2 on L3. Grade 1 anterolisthesis of L4 on L5. Bone marrow signal/fracture: Numerous intrinsic T1 hypointense, T2/STIR hyperintense, enhancing marrow replacing lesions throughout all levels of the visualized lumbar spine vertebral bodies and scattered throughout the posterior elements as well as multiple foci throughout the visualized sacrum and bony pelvis compatible with osseous metastases. No evidence of pathologic fracture or extraosseous extension of disease. Conus: The conus terminates at L2 and is within normal limits of morphology and signal. Normal course and caliber of the descending cauda equina nerve roots. No evidence of abnormal intradural enhancement. Paraspinal soft tissues: Paraspinal soft tissues are within normal limits. Canal and foramina: Multilevel disc bulges and ligamentum flavum thickening with facet arthropathy resulting in up to severe spinal canal narrowing at L4-L5 and moderate spinal canal narrowing at L3-4. Multilevel facet arthropathy with up to mild bilateral neuroforaminal narrowing at L4-5 on the RIGHT. Sacrum and iliac wings: The visualized sacrum and iliac wings are otherwise within normal limits. The presacral soft tissues are normal in appearance. IMPRESSION: Numerous osseous metastases throughout the cervical, thoracic, and lumbar spine as well as the visualized sacrum and bony pelvis. No evidence of extraosseous extension of disease. Subacute likely pathologic compression deformity of the T7 vertebra. No other pathologic fracture with evidence of extraosseous extension of disease. No evidence of leptomeningeal disease in the cervical, thoracic, or lumbar spine. Multilevel lumbar degenerative spondylosis resulting in up to severe spinal canal narrowing at L4-5. No other significant spinal canal or neuroforaminal stenosis throughout the remainder cervical, thoracic, or lumbar spine. Innumerable hepatic metastases. MRI liver without and with contrast recommended for further characterization. LEFT upper pole renal mass concerning for primary renal neoplasm. This may also be further assessed on MRI liver. Indeterminate LEFT adnexal cystic lesion with eccentric soft tissue component. MRI female pelvis without and with contrast recommended for further assessment. Large RIGHT and moderate LEFT pleural effusions with compressive atelectasis and/or superimposed consolidation in the RIGHT lung base. Cervical Anatomic Variant: None. Assume 7 cervical vertebrae with counting from the craniocervical junction. Anatomic Thoracic/Lumbar Variant: Transitional S1 vertebral body. L4-5 is considered the level of the iliac crest and there are 5 lumbar-type vertebrae. ACTIONABLE RESULT: FOLLOW-UP Acuity: Actionable Findings: Liver Routing Code: LV_1 Recommendation: MRI LIVER WO/W IVCON (add Dotarem in comments) Time Frame: At the discretion of the clinical team. COMMUNICATION: Results will be communicated with the ordering provider via [employer] staff message or phone message by [facility] within 2 business days of report finalization. --END OF FINDING-- Acuity: Actionable Findings: Female reproductive tract (pelvis, adnexa) Routing code: WH_1 Recommendation: MRI FEMALE PELVIS WO/W IV CONTRAST TimeFrame: at the discretion of the clinical team. --END OF FINDING-- Drafter: KEVIN Transcribe Date/Time: Jan 20 2025 11:02A Dictated by : EDGAR MCCOY MD This examination was interpreted and the report reviewed and electronically signed by: EDGAR MCCOY MD on Jan 20 2025 11:31AM EST [id number] ACTIONABLE PROGRESS Observed: 01/20/2025 9:00 AM Status: COMPLETED Source: [facility] ID: [id number] Author: EWELINA WOOD RT(R) Service: ? Author Type: Technologist Type: Progress Notes Filed: 01/20/2025 09:17 Note Text: Radiology Service Progress Note DATE OF SERVICE: January 20, 2025 TIME: 9:16 AM PATIENT IDENTITY VERIFICATION COMPLETED USING TWO (2) STANDARD IDENTIFIERS: Name and Date of confirmed by patient verbally. FALL SCREENING: Has the patient had 2 falls in the last year or 1 fall with injury or currently using an Ambulatory Assistive Device (Walker, Cane, Wheelchair, Crutches, etc.)? No PATIENT GENDER DATA: Assigned female at . status: : No status: NO. PATIENT RELEVANT IMPLANT DATA REVIEWED: Yes PATIENT PRESENTS WITH AN IMPLANTABLE OR ATTACHED RETAIL BUYER: No ALLERGIES: Reviewed and unchanged CONTRAST ALLERGY: NO. EXAM: MRI - CONTRAST TYPE: GROUP II PERIPHERAL IV DATA: Ambulatory: A peripheral IV was started in the Right forearm with a Angio cath: 22 gauge. RADIOLOGY DEPARTMENT: MR; Exam(s) Completed: Spine: Cervical spine, Thoracic spine, and Lumbar spine. Aromatherapy Administered: No SIGNATURE: RT Pauline(R) PATIENT NAME: Joyce Robles DATE: January 20, 2025 TIME: 9:16 AM PROGRESS Observed: 01/18/2025 11:02 AM Status: COMPLETED Source: [facility] HNO ID: [id number] Author: KELY SOTOMAYOR RD Service: ? Author Type: Registered Dietitian Type: Progress Notes Filed: 01/18/2025 12:14 Note Text: Nutrition Therapy Reassessment Nutrition Diagnosis: Altered Gastrointestinal Tract Function, related to, Irritable Bowel Syndrome, as evidenced by multiple medications and difficulty with consitpation. RECOMMENDED MALNUTRITION DIAGNOSIS: SEVERE PROTEIN-CALORIE MALNUTRITION NUTRITION CARE PLAN Nutrition Intervention 11/25/2024: -Consider meal prepping prior to treatment. - aim for 5-6 small/frequent meals - incorporate lean sources of protein/plant based proteins at meals - Stay well hydrated - sip on fluids throughout the day - start supplementation: Ensure Plus or Complete; Boost Plus 2-3 times per day Switch to full ONS from clear Nutrition Monitoring AND Evaluation: - PO Intake - Supplement Intake - Weight - Labs - Malnutrition Status Patient presents with breast cancer metastatic to brain. Patient's symptoms are: Taste changes Early satiety Heartburn Constipation - using senna, miralax, mag citrate, lynzess BM improved to every 1 to 4 days Diet History: Breakfast - mini wheat's, milk, OJ Snack - Lunch - [employer] salad, chicken//PB sandwich on oat bread, sunchips, vegetables Snack - fruit, cookie Dinner - [employer] roast beef sandwich (07/15), 1/2 curly fries//cheondoism friends bringing casseroles Snack - fruit, cookie Beverages - water, ensure clear (2 per day) : Pt is currently stable from a nutritional standpoint. Intake continues to include three meals per day with at least one snack and one Ensure Clear. Weight is stable @153.5lbs today - s/p paracentesis yesterday. Discussed including additional protein at breakfast. Reviewed protein sources. Pt to schedule as needed. Anthropometrics: HEIGHT/WEIGHT/BSA Height BSA (m2) Weight 04/07/2024 163 cm (5' 4.17") 1.96 m2 187 lb 05/04/2024 1.94 m2 184 lb 06/04/2024 1.91 m2 177 lb 1.6 oz 06/14/2024 1.92 m2 178 lb 12.7 oz 07/20/2024 1.91 m2 177 lb 07/23/2024 1.89 m2 174 lb 8 oz 07/30/2024 1.85 m2 167 lb 08/05/2024 165.1 cm (5' 5") 1.86 m2 166 lb 3.6 oz 08/11/2024 1.85 m2 163 lb 12.8 oz 08/19/2024 1.84 m2 162 lb 8 oz 08/24/2024 1.85 m2 164 lb 09/15/2024 1.83 m2 160 lb 8 oz 09/28/2024 1.81 m2 157 lb 8 oz 10/07/2024 1.79 m2 154 lb 8 oz 11/22/2024 1.74 m2 145 lb 8 oz 01/18/2025 1.79 m2 153 lb 8 oz Body mass index is 25.54 kg/m?. Resting Metabolic Rate: 1185 Food Insecurity: Not on file Education Materials Provided: Creative Ideas for Eating, Illness, AND Recovery READINESS TO LEARN Cognitive ability: Alert and oriented Motivation to learn: Interested Family support: Unable to assess - Family not present Instruction provided to: Patient Patient learns best by: Multiple Methods Factors affecting learning: None Physical limitations affecting learning: None Referred/Supervised by: Dr. 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 DEMERAL (MEPERIDINE) 04/01/2016 8 - GI Upset PERCOCET (OXYCODONE-ACETAMINOPHEN)04/01/2016 8 - GI Upset Date Reviewed: 01/18/2025 Reviewed by: Kely Sotomayor, RD - Fully Assessed Prescriptions as of 01/18/2025 - linaCLOtide (LINZESS) 72 mcg capsule Take 1 capsule by mouth once daily. Take capsule on an empty stomach at least 30 minutes before a meal at the same time each day, alternating with 2 capsules once a day. Capsule should be swallowed whole. DO NOT chew or crush. - OTC PRODUCT Vitamin D/Vitamin K2/Turmeric: Take one tablet by mouth once daily. - OLANZapine (ZYPREXA) 5 mg tablet Take 1 tablet by mouth daily at bedtime. - cinnamon bark (CINNAMON ORAL) Take 1 tablet by mouth once daily. - apixaban (ELIQUIS) 5 mg tab(s) Take 1 tablet by mouth two times a day. - elacestrant (ORSERDU) 345 mg tablet Take 1 tablet (345 mg) by mouth once daily. with a meal. - calcium carbonate/vitamin D3 (CALCIUM + D ORAL) Take 1 tablet by mouth once daily. - ginkgo biloba (GINKOBA ORAL) Take 120 mg by mouth once daily. - MULTI-VITAMIN ORAL Take 1 tablet by mouth once daily. - GLUCOSAMINE SULFATE (GLUCOSAMINE ORAL) Take 1 tablet by mouth once daily. Encounter Status:Closed by KELY SOTOMAYOR on 01/18/25 CBC W AUTO DIFF BLD Collected: 01/18/2025 10:39 AM S tatus: F Source: [facility] Order Comment: Specimen Type : BLOOD SPECIMEN Ordering Facility: [facility] Address: [address] [place] [address] TYPE CODE TESTS RESULT OUT OF RANGE REFERENCE UNITS LAB 6690-2(LOINC) WBC # Bld Auto 7.84 3.70-11.00 k/uL LAB 789-8(LOINC) RBC # Bld Auto 4.15 3.90-5.20 m/ uL LAB 718-7(LOINC) Hgb Bld-mCnc 13.5 11.5-15.5 g/dL LAB 4544-3(LOINC) Hct VFr Bld Auto 40.9 36.0-46.0 % LAB 787-2(LOINC) MCV RBC Auto 98.6 80.0-100.0 fL LAB 785-6(LOINC) MCH RBC Qn Auto 32.5 26.0-34.0 p g LAB 786-4(LOINC) MCHC RBC Auto-mCnc 33.0 30.5-36.0 g/dL LAB 29977-6(LOINC) RDW RBC-Rto 12.8 11.5-15.0 % LAB 777-3(LOINC) Platelet # Bld Auto 236 150-400 k/uL LAB 65710-4(LOINC) PMV Bld Auto 9.0 9.0-12.7 fL LAB 770-8(LOINC) Neutrophils/leuk NFr Bld Auto 77.6 % LAB 751-8(LOINC) Neutrophils # Bld Auto 6.09 1.45-7.50 k/uL LAB 736-9(LOINC) Lymphocytes/leuk NFr Bld Auto 14.8 % LAB 731-0(LOINC) Lymphocytes # Bld Auto 1.16 1.00-4.00 k/uL LAB 5905-5(LOINC) Monocytes/leuk NFr Bld Auto 6.4 % LAB 742-7(LOINC) Monocytes # Bld Auto 0.50 <0.87 k/uL LAB 713-8(LOINC) Eosinophil/leuk NFr Bld Auto 0.4 % LAB 711-2(LOINC) Eosinophil # Bld Auto 0.03 <0.46 k/uL LAB 706-2(LOINC) Basophils/leuk NFr Bld Auto 0.4 % LAB 704-7(LOINC) Basophils # Bld Auto 0.03 <0.11 k/uL LAB 04807-6(INC) Imm Granulocytes/jose k NFr Bld Auto 0.4 % LAB 15634-0(INC) Imm Granulocytes # Bld Auto 0.03 <0.10 k/uL LAB 34346-0(INC) nRBC/100 WBC Bld-Rto 0.0 /100 WBC LAB 771-6([facility]) nRBC # Bld Auto <0.01 <0.01 k/u L LAB 74233-6([facility]) Differential method Bld Auto Performed By: #### [id number] # ### [facility] CLIA [id number] [address] [place] [address] [place] COMP METAB 2000 PNL SERPL Collected: 10:39 AM Status: F Source: [facility] Order Comment: Specimen Type : BLOOD SPECIMEN Ordering Facility: [facility] Address: [address] [place] [address] TYPE CODE TESTS RESULT OUT OF RANGE REFERENCE UNITS LAB 2885-2([facility]) Prot SerPl-mCnc 5.5 Low 6.3-8.0 g/dL LAB 1751-7(LOINC) Albumin SerPl-mCnc 3.0 Low 3.9-4.9 g/dL LAB 62710-3(LOINC) Calcium SerPl-mCnc 9.3 8.5-10.2 mg/dL LAB 1975-2(INC) Bilirub SerPl-mCnc 0.3 0.2-1.3 mg/dL LAB 6768-6(LOINC) ALP SerPl-cCnc 72 34-123 U/L LAB 1920-8(LOINC) AST SerPl-cCnc 16 13-35 U/L LAB 1742-6(LOINC) ALT SerPl-cCnc 9 7-38 U/L LAB 2345-7(LOINC) Glucose SerPl-mCnc 145 High 74-99 mg/dL Result Comment: The [place] [employer] (ADA) provides guidance for cutoff values for fasting glucose and random glucose. The ADA defines fasting as no caloric intake for at least 8 hours. Fasting plasma glucose results between 100 to 125 mg/dL indicate increased risk for diabetes (prediabetes). Fasting plasma glucose results greater than or equal to 126 mg/dL meet the criteria for diagnosis of diabetes. In the absence of unequivocal hyperglycemia, results should be confirmed by repeat testing. In a patient with classic symptoms of hyperglycemia or hyperglycemic crisis, random plasma glucose results greater than or equal to 200 mg/dL meet the criteria for diagnosis of diabetes. Reference: Standards of Medical Care in Diabetes 2016, [place] Diabetes Association. Diabetes Care. 2016.39(Suppl 1). LAB 3094-0(LOINC) BUN SerPl-mCnc 16 7-21 mg/ dL LAB 2160-0(LOINC) Creat SerPl-mCnc 0.79 0.58-0.96 mg/dL LAB 2951-2(LOINC) Sodium SerPl-sCnc 137 136-144 mmol/L LAB 2823-3(LOINC) Potassium SerPl-sCnc 4.0 3.7-5.1 mmol/L LAB 2075-0(LOINC) Chloride SerPl-sCnc 106 98-107 mmol/L LAB 2028-9(LOINC) CO2 SerPl-sCnc 23 22-30 mmo l/L LAB 47371-4(LOINC) Anion Gap SerPl-sCnc 8 8-15 mmol/L LAB 70255-6(LOINC) Creatinine + eGFR Pnl SerPlBld 81 >=60 mL/min/1 .73m??? Result Comment: Estimated Gl omerular Filtration Rate (eGFR) is calculated using the 2020 CKD-EPI creatinine equation. This equation utilizes serum creatinine, sex, and age as parameters. The creatinine assay has traceable calibration to isotope dilution-mass spectrometry. Refer to KDIGO guidelines for clinical interpretation. In patients with unstable renal function, e.g. those with acute kidney injury, the eGFR may not accurately reflect actual GFR. Performed By: #### 17935-4 # ### [facility] CLIA [id number] [id number] [place] [address] [place] OF [place] CANCER AG15-3 SERPL-ACNC Collected: 02/2025 10:39 AM Status: F Source: [facility] Order Comment: Specimen Type : BLOOD SPECIMEN Ordering Facility: [facility] Address: [address] [place] [address] TYPE CODE TESTS RESULT OUT OF RANGE REFERENCE UNITS LAB 6875-9([facility]) Cancer Ag15-3 SerPl-aCnc 374.0 High <26.0 U/mL Result Comment: The CA 15-3 test methodology used is the Electrochemiluminescence Immunoassay by [employer]. Results obtained with different methods or kits cannot be used interchangeably. Performed By: #### 6875-9 ## ## [facility] CLIA [id number] [address] [place] [address] OF [place]IEL PROGRESS Observed: 01/10/2025 9:34 AM Status: COMPLETED Source: [facility] HNO ID: [id number] Author: LIZET AGUDELO APRN.SOLE MOLDER Service: ? Author Type: Nurse Practitioner Type: Progress Notes Filed: 01/10/2025 10:05 Note Text: Neurological Prim BRAIN TUMOR AND NEURO-ONCOLOGY CENTER TELE-HEALTH VISIT PROGRESS NOTE This is a virtual visit using [employer] video visit. It required patient-provider interaction for the medical decision making as documented below. I have communicated my name and active licensure. The patient's identity and physical location were verified at the time of this visit. Either the patient or their legal textiles sales representative has been informed of the risks and benefits of -- and alternatives to -- treatment through a remote evaluation and consents to proceed with the evaluation remotely. Persons Present: Patient AND son (Will) Chief Complaint/Reason: Brain mets MEDICAL DECISION MAKING Assessment/Plan: 1. Brain mets s/p GKRS on 06/16/24 - New MRI brain scan shows new LMD in the Right parietal convexity and ? LMD vs met at inferior Right cerebellum - Images reviewed with her and her son today - Case and images reviewed with treating physicians; rec consideration of GKRS - Will obtain MRI c/t/l spine for further evaluation of LMD and then follow up with Dr. Gonzales/Dr. Clayton for treatment discussion - Reviewed signs and symptoms that would prompt sooner evaluation - She has our contact information and was advised to call if new symptoms, questions or concerns arise prior to next scheduled visit. - All questions were answered. Portions of this note have been copied and updated appropriately. I spent a total of 40 minutes on the date of the service which included preparing to see the patient, [id number] patient care, completing clinical documentation, obtaining and/or reviewing separately obtained history, performing a medically appropriate examination, counseling and educating the patient/family/caregiver, ordering medications, tests, or procedures, communicating with other HCPs (not separately reported), independently interpreting results (not separately reported), communicating results to the patient/family/caregiver, and care coordination (not separately reported). Lizet Agudelo APRN.SOLE MOLDER Certified Nurse Practitioner cc: Swapnil Gonzales MD AND Jessie Clayton MD AND John Albright MD - [facility] HPI: Joyce Robles is a very pleasant 69 year old female who is here for a follow-up visit for breast cancer with brain metastases. She is s/p GKRS by Dr. Swapnil Gonzales and Dr. Jessie Clayton as outlined below: 06/16/24: GKRS to 1) Right occ 2) Left fr. Primary cancer site : Breast Primary oncologist : Dr. John Albright Current systemic treatment : Elacestrant (Orserdu) Current steroids: None Interval history: 08/05/24 Presents today with son (Will) for follow up with a new MRI brain scan for review. Since last visit, no new neurologic symptoms or concerns. No SOB today. Lives independently and drives without issues. Reports some generalized weakness last few days. No recent illness or fevers. 10/30/24 No new neurologic symptoms or concerns. Lives independently. Continues with weekly thoracentesis. No SOB today. Has trouble staying asleep at night (sleeps 9PM to 3AM). 01/10/25 No recent migraines. No new neurologic symptoms or concerns. Continues with difficulty sleeping which she feels has effecting her cognitive functioning. ROS: Neurological : No complaint of new or worsening headaches + Complaint of migraines, chronic (uses Tylenol prn) No complaint of tinnitus No complaint of decreased hearing No complaint of diplopia No complaints of blurred vision. No complaint of vision loss or blackouts No complaint of arm/leg/face numbness or tingling No complaint of focal limb weakness No problem with limb coordination or imbalance No complaint of LOC or syncope or falls No complaint of gait instability + Complaints of memory changes/"chemo brain" General : + PE (on Eliquis) + Trouble sleeping, as above (on Zyprexa) + Neuropathy, LLE toes Physical examination: Patient is in no distress. Mental status: Clear Speech: Fluent. Data Reviewed: Most recent imaging IMPRESSION: Newly leptomeningeal disease right parietal convexity. New leptomeningeal disease versus tiny parenchymal metastasis inferior right cerebellum. No evidence of acute intracranial process or mass effect. Drafter: [facility] Transcribe Date/Time: Jan 07 2025 11:29A Dictated by : SHARITA PALOMARES MD This examination was interpreted and the report reviewed and electronically signed by: SHARITA PALOMARES MD on Jan 07 2025 11:42AM EST * * *Final Report* * * DATE OF EXAM: Jan 07 2025 10:05AM [facility] 0295 - MRI BRAIN WO/W IVCON / PROCEDURE REASON: Metastasis to brain (HCC) * * * * Physician Interpretation * * * * EXAMINATION: MRI BRAIN WO/W IVCON CLINICAL HISTORY: Metastasis to brain (HCC) Previous gamma knife right occipital and left frontal. History of breast cancer. TECHNIQUE: Routine brain MRI protocol without and with contrast including diffusion images. Dynamic susceptibility contrast MR perfusion imaging also performed. MQ: MRBWOW_2 Contrast: 13 mL Dotarem IV COMPARISON: 08/05/2024 and 10/07/2024 RESULT: Acute Change: There is no evidence of restricted diffusion to suggest an acute infarct. Hemorrhage: No evidence of prior parenchymal hemorrhage on the susceptibility weighted images. Mass Lesion/ Mass Effect: Newly apparent leptomeningeal enhancement in the right parietal convexity (axial postcontrast series 14 images 65-70). Tiny linear focus of enhancement inferior right cerebellum is either parenchymal or leptomeningeal (14:14). No significant mass effect. No focally elevated cerebral blood volume though the enhancing regions are likely below the resolution of perfusion imaging. Chronic Change: Scattered punctate foci of increased T2 and FLAIR signal are noted in the supratentorial white matter which is a nonspecific finding and may represent the subtle sequelae of a remote insult. Parenchyma: No significant volume loss for age. The brain parenchyma is otherwise within normal limits of signal intensity and morphology. Ventricles: Normal caliber and morphology. Skull Base: Hypothalamic and pituitary region are grossly normal. Craniocervical junction is normal. No significant marrow replacement process. Vasculature: Major intracranial arterial structures, and dural venous sinuses show typical flow void, suggesting patency by spin echo criteria. Other: The visualized paranasal sinuses and mastoid air cells are clear. The orbits and extracranial soft tissues are unremarkable. KPS: 90 CNPN Observed: 01/10/2025 12:00 AM Status: COMPLETED Source: [facility] JOYCE ROBLES ([id number]) 1955 F Date Time Provider Department 01/10/25 LIZET AGUDELO [facility] During your visit today, we recorded the following information about you: Lizet Agudelo APRN.[facility] 01/10/2025 10:03 AM Signed Scheduling Request - Established Patient Time Frame: ASAPc, within 1-2 weeks Orders: MRI CERVICAL, THORACIC, LUMBAR SPINE WO/W IVCON @ [facility] (she prefers to have scans divided into 2 appointments to limit time in scanner) Provider: Dr. Gonzales AND Dr. Clayton ([facility]) Visit type: Virtual Visit Diagnosis: Brain mets Allergies As of Date: 01/10/2025 Noted Allergy Reaction ZOFRAN (ONDANSETRON) 07/23/2024 14 - Other: See Comments Comments: Migraines. DEMERAL (MEPERIDINE) 04/01/2016 8 - GI Upset PERCOCET (OXYCODONE-ACETAMINOPHEN)04/01/2016 8 - GI Upset Date Reviewed: 01/10/2025 Reviewed by: Lizet Agudelo APRN.SOLE MOLDER - Fully Assessed Reason for Visit: JESSICA, follow up [Other] Prescriptions as of 01/10/2025 - iv contrast (will be provided with radiology test) MRI CSP Inject, intravenously, once for 1 dose. No IV access, insert saline lock prior to the beginning of sedation, infusion, injection of imaging exam. Discontinue saline lock post exam. If Pt. has a central line or IVAD, may access for administration according to line specific nursing protocol. Once exam is complete flush line and de-access according to line specific nursing protocol in the MR contrast administration guidelines link. - iv contrast (will be provided with radiology test) MRI TSP Inject, intravenously, once for 1 dose. No IV access, insert saline lock prior to the beginning of sedation, infusion, injection of imaging exam. Discontinue saline lock post exam. If Pt. has a central line or IVAD, may access for administration according to line specific nursing protocol. Once exam is complete flush line and de-access according to line specific nursing protocol in the MR contrast administration guidelines link. - iv contrast (will be provided with radiology test) MRI LSP Inject, intravenously, once for 1 dose. No IV access, insert saline lock prior to the beginning of sedation, infusion, injection of imaging exam. Discontinue saline lock post exam. If Pt. has a central line or IVAD, may access for administration according to line specific nursing protocol. Once exam is complete flush line and de-access according to line specific nursing protocol in the MR contrast administration guidelines link. - linaCLOtide (LINZESS) 72 mcg capsule Take 1 capsule by mouth once daily. Take capsule on an empty stomach at least 30 minutes before a meal at the same time each day, alternating with 2 capsules once a day. Capsule should be swallowed whole. DO NOT chew or crush. - OTC PRODUCT Vitamin D/Vitamin K2/Turmeric: Take one tablet by mouth once daily. - OLANZapine (ZYPREXA) 5 mg tablet Take 1 tablet by mouth daily at bedtime. - cinnamon bark (CINNAMON ORAL) Take 1 tablet by mouth once daily. - apixaban (ELIQUIS) 5 mg tab(s) Take 1 tablet by mouth two times a day. - elacestrant (ORSERDU) 345 mg tablet Take 1 tablet (345 mg) by mouth once daily. with a meal. - calcium carbonate/vitamin D3 (CALCIUM + D ORAL) Take 1 tablet by mouth once daily. - ginkgo biloba (GINKOBA ORAL) Take 120 mg by mouth once daily. - MULTI-VITAMIN ORAL Take 1 tablet by mouth once daily. - GLUCOSAMINE SULFATE (GLUCOSAMINE ORAL) Take 1 tablet by mouth once daily. 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 History of breast cancer. TECHNIQUE: Routine brain MRI protocol without and with contrast including diffusion images. Dynamic susceptibility contrast MR perfusion imaging also performed. MQ: MRBWOW_2 Contrast: 13 mL Dotarem IV COMPARISON: 08/05/2024 and 10/07/2024 RESULT: Acute Change: There is no evidence of restricted diffusion to suggest an acute infarct. Hemorrhage: No evidence of prior parenchymal hemorrhage on the susceptibility weighted images. Mass Lesion/ Mass Effect: Newly apparent leptomeningeal enhancement in the right parietal convexity (axial postcontrast series 14 images 65-70). Tiny linear focus of enhancement inferior right cerebellum is either parenchymal or leptomeningeal (14:14). No significant mass effect. No focally elevated cerebral blood volume though the enhancing regions are likely below the resolution of perfusion imaging. Chronic Change: Scattered punctate foci of increased T2 and FLAIR signal are noted in the supratentorial white matter which is a nonspecific finding and may represent the subtle sequelae of a remote insult. Parenchyma: No significant volume loss for age. The brain parenchyma is otherwise within normal limits of signal intensity and morphology. Ventricles: Normal caliber and morphology. Skull Base: Hypothalamic and pituitary region are grossly normal. Craniocervical junction is normal. No significant marrow replacement process. Vasculature: Major intracranial arterial structures, and dural venous sinuses show typical flow void, suggesting patency by spin echo criteria. Other: The visualized paranasal sinuses and mastoid air cells are clear. The orbits and extracranial soft tissues are unremarkable. IMPRESSION: Newly leptomeningeal disease right parietal convexity. New leptomeningeal disease versus tiny parenchymal metastasis inferior right cerebellum. No evidence of acute intracranial process or mass effect. Drafter: [facility] Transcribe Date/Time: Jan 07 2025 11:29A Dictated by : SHARITA PALOMARES MD This examination was interpreted and the report reviewed and electronically signed by: SHARITA PALOMARES MD on Jan 07 2025 11:42AM EST [id number] PROGRESS Observed: 01/07/2025 9:30 AM Status: COMPLETED Source: [facility] ID: [id number] Author: EWELINA WOOD RT(R) Service: ? Author Type: Technologist Type: Progress Notes Filed: 01/07/2025 09:49 Note Text: Radiology Service Progress Note DATE OF SERVICE: January 07, 2025 TIME: 9:49 AM PATIENT IDENTITY VERIFICATION COMPLETED USING TWO (2) STANDARD IDENTIFIERS: Name and Date of confirmed by patient verbally. FALL SCREENING: Has the patient had 2 falls in the last year or 1 fall with injury or currently using an Ambulatory Assistive Device (Walker, Cane, Wheelchair, Crutches, etc.)? No PATIENT GENDER DATA: Assigned female at . status: : No status: NO. PATIENT RELEVANT IMPLANT DATA REVIEWED: Yes PATIENT PRESENTS WITH AN IMPLANTABLE OR ATTACHED RETAIL BUYER: No ALLERGIES: Reviewed and unchanged CONTRAST ALLERGY: NO. EXAM: MRI - CONTRAST TYPE: GROUP II PERIPHERAL IV DATA: Ambulatory: A peripheral IV was started in the Right forearm with a Angio cath: 20 gauge. RADIOLOGY DEPARTMENT: MR; Exam(s) Completed: Head: Routine Brain with Perfusion. Aromatherapy Administered: No SIGNATURE: RT Pauline(R) PATIENT NAME: Joyce Robels DATE: January 07, 2025 TIME: 9:49 AM CNPN Observed: 12/23/2024 12:00 AM Status: COMPLETED Source: [facility] Telephone ([facility]) JOYCE ROBLES ([id number]) 1955 F Date Time Provider Department 12/23/24 PRETTY SCHMITT [facility] During your visit today, we recorded the following information about you: Pretty Schmitt, PhD 12/23/2024 11:36 AM Signed Attempted to call patient to complete telehealth screening prior to initiation of Breast Psychology services. No answer and was not able to leave (mailbox full). Allergies As of Date: 12/23/2024 Noted Allergy Reaction ZOFRAN (ONDANSETRON) 07/23/2024 14 - Other: See Comments Comments: Migraines. DEMERAL (MEPERIDINE) 04/01/2016 8 - GI Upset PERCOCET (OXYCODONE-ACETAMINOPHEN)04/01/2016 8 - GI Upset Date Reviewed: 12/01/2024 Reviewed by: Kely Sotomayor RD - Fully Assessed Prescriptions as of 12/23/2024 - LORazepam (ATIVAN) 0.5 mg Take 1-2 tablets by mouth three times a day as needed for up to 14 days. - linaCLOtide (LINZESS) 72 mcg capsule Take 1 capsule by mouth once daily. Take capsule on an empty stomach at least 30 minutes before a meal at the same time each day, alternating with 2 capsules once a day. Capsule should be swallowed whole. DO NOT chew or crush. - OTC PRODUCT Vitamin D/Vitamin K2/Turmeric: Take one tablet by mouth once daily. - OLANZapine (ZYPREXA) 5 mg tablet Take 1 tablet by mouth daily at bedtime. - cinnamon bark (CINNAMON ORAL) Take 1 tablet by mouth once daily. - apixaban (ELIQUIS) 5 mg tab(s) Take 1 tablet by mouth two times a day. - elacestrant (ORSERDU) 345 mg tablet Take 1 tablet (345 mg) by mouth once daily. with a meal. - calcium carbonate/vitamin D3 (CALCIUM + D ORAL) Take 1 tablet by mouth once daily. - ginkgo biloba (GINKOBA ORAL) Take 120 mg by mouth once daily. - MULTI-VITAMIN ORAL Take 1 tablet by mouth once daily. - GLUCOSAMINE SULFATE (GLUCOSAMINE ORAL) Take 1 tablet by mouth once daily. 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 *10/07/2024 Encounter Status:Closed by PRETTY SCHMITT PHD on 12/23/24 CANCER AG15-3 [facility] Collected: 03/2025 11:45 AM Status: F Source: [facility] Order Comment: Specimen Type : BLOOD SPECIMEN Ordering Facility: [facility] Address: [address] [place] [address] TYPE CODE TESTS RESULT OUT OF RANGE REFERENCE UNITS LAB 6875-9(LOINC) Cancer Ag15-3 SerPl-aCnc 417.2 High <26.0 U/mL Result Comment: The CA 15-3 test methodology used is the Electrochemiluminescence Immunoassay by [employer]. Results obtained with different methods or kits cannot be used interchangeably. Performed By: #### 6875-9 ## ## [facility] CLIA [id number] [address] [place], [place] [address] [address] [place] COMP METAB 2000 PNL SERPL Collected: 11:45 AM Status: F Source: [facility] Order Comment: Specimen Type : BLOOD SPECIMEN Ordering Facility: [facility] Address: [address] [place] [address] TYPE CODE TESTS RESULT OUT OF RANGE REFERENCE UNITS LAB 2885-2(LOINC) Prot SerPl-mCnc 5.4 Low 6.3-8.0 g/dL LAB 1751-7(LOINC) Albumin SerPl-mCnc 3.2 Low 3.9-4.9 g/dL LAB 52867-5(LOINC) Calcium SerPl-mCnc 9.1 8.5-10.2 mg/dL LAB 1975-2(LOINC) Bilirub SerPl-mCnc 0.3 0.2-1.3 mg/dL LAB 6768-6(LOINC) ALP SerPl-cCnc 69 34-123 U/L LAB 1920-8(LOINC) AST SerPl-cCnc 17 13-35 U/L LAB 1742-6(LOINC) ALT SerPl-cCnc 11 7-38 U/L LAB 2345-7(LOINC) Glucose SerPl-mCnc 140 High 74-99 mg/dL Result Comment: The [place] Diabetes Association (ADA) provides guidance for cutoff values for fasting glucose and random glucose. The ADA defines fasting as no caloric intake for at least 8 hours. Fasting plasma glucose results between 100 to 125 mg/dL indicate increased risk for diabetes (prediabetes). Fasting plasma glucose results greater than or equal to 126 mg/dL meet the criteria for diagnosis of diabetes. In the absence of unequivocal hyperglycemia, results should be confirmed by repeat testing. In a patient with classic symptoms of hyperglycemia or hyperglycemic crisis, random plasma glucose results greater than or equal to 200 mg/dL meet the criteria for diagnosis of diabetes. Reference: Standards of Medical Care in Diabetes 2016, [place] Diabetes Association. Diabetes Care. 2016.39(Suppl 1). LAB 3094-0(LOINC) BUN SerPl-mCnc 17 7-21 mg/ dL LAB 2160-0(LOINC) Creat SerPl-mCnc 0.80 0.58-0.96 mg/dL LAB 2951-2(LOINC) Sodium SerPl-sCnc 139 136-144 mmol/L LAB 2823-3(LOINC) Potassium SerPl-sCnc 4.2 3.7-5.1 mmol/L LAB 2075-0(LOINC) Chloride SerPl-sCnc 106 98-107 mmol/L LAB 2028-9(LOINC) CO2 SerPl-sCnc 23 22-30 mmo l/L LAB 05100-3(LOINC) Anion Gap SerPl-sCnc 10 8-15 mmol/L LAB 00934-9(LOINC) Creatinine + eGFR Pnl SerPlBld 79 >=60 mL/min/1 .73m??? Result Comment: Estimated Gl omerular Filtration Rate (eGFR) is calculated using the 2020 CKD-EPI creatinine equation. This equation utilizes serum creatinine, sex, and age as parameters. The creatinine assay has traceable calibration to isotope dilution-mass spectrometry. Refer to KDIGO guidelines for clinical interpretation. In patients with unstable renal function, e.g. those with acute kidney injury, the eGFR may not accurately reflect actual GFR. Performed By: #### 68667-6 # ### [facility] CLIA [id number] [address] [place] [address] [place] CBC W AUTO DIFF BLD Collected: 12/20/2024 11:45 AM S tatus: F Source: [facility] Order Comment: Specimen Type : BLOOD SPECIMEN Ordering Facility: [facility] Address: [address] [place] [address] TYPE CODE TESTS RESULT OUT OF RANGE REFERENCE UNITS LAB 6690-2(LOINC) WBC # Bld Auto 6.49 3.70-11.00 k/uL LAB 789-8(LOINC) RBC # Bld Auto 4.07 3.90-5.20 m/ uL LAB 718-7([facility]) Hgb Bld-mCnc 13.1 11.5-15.5 g/dL LAB 4544-3([facility]) Hct VFr Bld Auto 40.1 36.0-46.0 % LAB 787-2([facility]) MCV RBC Auto 98.5 80.0-100.0 fL LAB 785-6([facility]) MCH RBC Qn Auto 32.2 26.0-34.0 p g LAB 786-4([facility]) MCHC RBC Auto-mCnc 32.7 30.5-36.0 g/dL LAB 62654-7([facility]) RDW RBC-Rto 12.8 11.5-15.0 % LAB 777-3([facility]) Platelet # Bld Auto 212 150-400 k/uL LAB 84232-3([facility]) PMV Bld Auto 9.2 9.0-12.7 fL LAB 770-8([facility]) Neutrophils/leuk NFr Bld Auto 73.8 % LAB 751-8([facility]) Neutrophils # Bld Auto 4.79 1.45-7.50 k/uL LAB 736-9([facility]) Lymphocytes/leuk NFr Bld Auto 18.3 % LAB 731-0([facility]) Lymphocytes # Bld Auto 1.19 1.00-4.00 k/uL LAB 5905-5([facility]) Monocytes/leuk NFr Bld Auto 6.3 % LAB 742-7([facility]) Monocytes # Bld Auto 0.41 <0.87 k/uL LAB 713-8([facility]) Eosinophil/leuk NFr Bld Auto 0.5 % LAB 711-2([facility]) Eosinophil # Bld Auto 0.03 <0.46 k/uL LAB 706-2([facility]) Basophils/leuk NFr Bld Auto 0.6 % LAB 704-7([facility]) Basophils # Bld Auto 0.04 <0.11 k/uL LAB 69855-8([facility]) Imm Granulocytes/jose k NFr Bld Auto 0.5 % LAB 58356-2([facility]) Imm Granulocytes # Bld Auto 0.03 <0.10 k/uL LAB 74022-6([facility]) nRBC/100 WBC Bld-Rto 0.0 /100 WBC LAB 771-6([facility]) nRBC # Bld Auto <0.01 <0.01 k/u L LAB 63066-5([facility]) Differential method Bld Auto Performed By: #### [id number] # ### [facility] CLIA [id number] [address] CNPN Observed: 11/30/2024 12:00 AM Status: COMPLETED Source: [facility] Telephone (HEMAWS) JOYCE ROBLES ([id number]) 1955 F Date Time Provider Department 11/30/24 JOHN ALBRIGHTAWS During your visit today, we recorded the following information about you: Paz Parker 11/30/2024 8:26 AM Signed Patient called [place] if [place] [facility] [place] She has not heard from them yet. She also wanted to let office know she is taking higher dose of lynzess. Joyce Mejía LPN 11/30/2024 9:12 AM Signed Yes [place] [facility] [place]. Made aware. Pt. Also states she is alternating the days of Lynzess between 145 mcg and 75 mcg. Joyce Mejía LPN Allergies As of Date: 11/30/2024 Noted Allergy Reaction ZOFRAN (ONDANSETRON) 07/23/2024 14 - Other: See Comments Comments: Migraines. DEMERAL (MEPERIDINE) 04/01/2016 8 - GI Upset PERCOCET (OXYCODONE-ACETAMINOPHEN)04/01/2016 8 - GI Upset Date Reviewed: 11/22/2024 Reviewed by: Paulina Jay Ma, JACKSON - Fully Assessed Reason for Visit: Patient Question [4877] Prescriptions as of 11/30/2024 - LORazepam (ATIVAN) 0.5 mg Take 1-2 tablets by mouth three times a day as needed. - OTC PRODUCT Vitamin D/Vitamin K2/Turmeric: Take one tablet by mouth once daily. - linaCLOtide (LINZESS) 72 mcg capsule Take 1 capsule by mouth once daily. Take capsule on an empty stomach at least 30 minutes before a meal at the same time each day. Capsule should be swallowed whole. DO NOT chew or crush. - OLANZapine (ZYPREXA) 5 mg tablet Take 1 tablet by mouth daily at bedtime. - cinnamon bark (CINNAMON ORAL) Take 1 tablet by mouth once daily. - apixaban (ELIQUIS) 5 mg tab(s) Take 1 tablet by mouth two times a day. - elacestrant (ORSERDU) 345 mg tablet Take 1 tablet (345 mg) by mouth once daily. with a meal. - calcium carbonate/vitamin D3 (CALCIUM + D ORAL) Take 1 tablet by mouth once daily. - ginkgo biloba (GINKOBA ORAL) Take 120 mg by mouth once daily. - MULTI-VITAMIN ORAL Take 1 tablet by mouth once daily. - GLUCOSAMINE SULFATE (GLUCOSAMINE ORAL) Take 1 tablet by mouth once daily. 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 Author Type: Registered Dietitian Type: Progress Notes Filed: 12/01/2024 10:45 Note Text: Nutrition Therapy Initial Assessment Nutrition Diagnosis: Altered Gastrointestinal Tract Function, related to, Irritable Bowel Syndrome, as evidenced by multiple medications and difficulty with consitpation. RECOMMENDED MALNUTRITION DIAGNOSIS: SEVERE PROTEIN-CALORIE MALNUTRITION NUTRITION CARE PLAN Nutrition Intervention 11/25/2024: -Consider meal prepping prior to treatment. - aim for 5-6 small/frequent meals - incorporate lean sources of protein/plant based proteins at meals - Stay well hydrated - sip on fluids throughout the day - start supplementation: Ensure Plus or Complete; Boost Plus 2-3 times per day Switch to full ONS from clear Nutrition Monitoring AND Evaluation: - PO Intake - Supplement Intake - Weight - Labs - Malnutrition Status Need for Follow up: monthly Patient presents with breast cancer metastatic to brain. Patient's symptoms are: Taste changes Early satiety Heartburn Constipation - using senna, miralax, mag citrate, lynzess BM improved to every 1 to 4 days Diet History: Breakfast - mini wheat's, milk, OJ Snack - Lunch - [employer] salad, chicken//PB sandwich on oat bread, sunchips, vegetables Snack - fruit, cookie Dinner - [employer] roast beef sandwich (/), 1/2 curly fries//cheondoism friends bringing casseroles Snack - fruit, cookie Beverages - water, ensure clear (2 per day) Anthropometrics: HEIGHT/WEIGHT/BSA Height BSA (m2) Weight 08/24/2024 1.85 m2 164 lb 09/15/2024 1.83 m2 160 lb 8 oz 09/28/2024 1.81 m2 157 lb 8 oz 10/07/2024 1.79 m2 154 lb 8 oz 11/22/2024 1.74 m2 145 lb 8 oz There is no height or weight on file to calculate BMI. Resting Metabolic Rate: 1185 Malnutrition Screening Significant unintentional weight loss? Yes Eating less than 75% of usual intake for more than 2 weeks? Yes Potential Signs of Inflammation: critically ill In the context of Chronic Illness or Injury based on: Unintentional Weight Loss: >5% in 1 month Insufficient Energy Intake: Less than 75% energy intake compared to estimated needs for greater than or equal to 1 month Food Insecurity: Not on file Education Materials Provided: Creative Ideas for Eating, Illness, AND Recovery READINESS TO LEARN Cognitive ability: Alert and oriented Motivation to learn: Interested Family support: Unable to assess - Family not present Instruction provided to: Patient Patient learns best by: Multiple Methods Factors affecting learning: None Physical limitations affecting learning: None Referred/Supervised by: Dr. 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 DEMERAL (MEPERIDINE) 04/01/2016 8 - GI Upset PERCOCET (OXYCODONE-ACETAMINOPHEN)04/01/2016 8 - GI Upset Date Reviewed: 11/22/2024 Reviewed by: Paulina Jay Ma, MA - Fully Assessed Prescriptions as of 12/01/2024 - LORazepam (ATIVAN) 0.5 mg Take 1-2 tablets by mouth three times a day as needed. - OTC PRODUCT Vitamin D/Vitamin K2/Turmeric: Take one tablet by mouth once daily. - linaCLOtide (LINZESS) 72 mcg capsule Take 1 capsule by mouth once daily. Take capsule on an empty stomach at least 30 minutes before a meal at the same time each day. Capsule should be swallowed whole. DO NOT chew or crush. - OLANZapine (ZYPREXA) 5 mg tablet Take 1 tablet by mouth daily at bedtime. - cinnamon bark (CINNAMON ORAL) Take 1 tablet by mouth once daily. - apixaban (ELIQUIS) 5 mg tab(s) Take 1 tablet by mouth two times a day. - elacestrant (ORSERDU) 345 mg tablet Take 1 tablet (345 mg) by mouth once daily. with a meal. - calcium carbonate/vitamin D3 (CALCIUM + D ORAL) Take 1 tablet by mouth once daily. - ginkgo biloba (GINKOBA ORAL) Take 120 mg by mouth once daily. - MULTI-VITAMIN ORAL Take 1 tablet by mouth once daily. - GLUCOSAMINE SULFATE (GLUCOSAMINE ORAL) Take 1 tablet by mouth once daily. Encounter Status:Closed by KELY SOTOMAYOR on 12/01/24 SD Observed: 11/23/2024 12:00 AM Status: COMPLETED Source: [facility] Telephone (NELIDA) JOYCE ROBLES ([id number]) 1955 F Date Time Provider Department 11/23/24 JOHN ALBRIGHT During your visit today, we recorded the following information about you: Darwin Cara Paz 11/23/2024 9:01 AM Signed Patient called stating she has an oxygen concentrator and some tanks at her home that need to be taken away. She states [employer] informed her that a letter needs faxed to them from provider. Please advise patient. Shanon Bruno LPN 11/23/2024 9:54 AM Signed OK to send letter/order to [place]? ELA Tan Paul A, DO 11/23/2024 11:32 AM Signed Yes. DO Damion Bautista Kara, LPN 11/26/2024 3:54 PM Signed Printed phone note and faxed to # [phone] Allergies As of Date: 11/23/2024 Noted Allergy Reaction ZOFRAN (ONDANSETRON) 07/23/2024 14 - Other: See Comments Comments: Migraines. DEMERAL (MEPERIDINE) 04/01/2016 8 - GI Upset PERCOCET (OXYCODONE-ACETAMINOPHEN)04/01/2016 8 - GI Upset Date Reviewed: 11/22/2024 Reviewed by: Paulina Jay Ma, MA - Fully Assessed Reason for Visit: Patient Question [2767] Prescriptions as of 11/26/2024 - LORazepam (ATIVAN) 0.5 mg Take 1-2 tablets by mouth three times a day as needed. - OTC PRODUCT Vitamin D/Vitamin K2/Turmeric: Take one tablet by mouth once daily. - linaCLOtide (LINZESS) 72 mcg capsule Take 1 capsule by mouth once daily. Take capsule on an empty stomach at least 30 minutes before a meal at the same time each day. Capsule should be swallowed whole. DO NOT chew or crush. - OLANZapine (ZYPREXA) 5 mg tablet Take 1 tablet by mouth daily at bedtime. - cinnamon bark (CINNAMON ORAL) Take 1 tablet by mouth once daily. - apixaban (ELIQUIS) 5 mg tab(s) Take 1 tablet by mouth two times a day. - elacestrant (ORSERDU) 345 mg tablet Take 1 tablet (345 mg) by mouth once daily. with a meal. - calcium carbonate/vitamin D3 (CALCIUM + D ORAL) Take 1 tablet by mouth once daily. - ginkgo biloba (GINKOBA ORAL) Take 120 mg by mouth once daily. - MULTI-VITAMIN ORAL Take 1 tablet by mouth once daily. - GLUCOSAMINE SULFATE (GLUCOSAMINE ORAL) Take 1 tablet by mouth once daily. 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 Author Type: Physician Type: Progress Notes Filed: 11/22/2024 16:51 Note Text: Oncologic problem(s): 1) MBC. 2) History of ovarian cancer. 3) Germline BRCA2 mutation. HPI: The patient is a 69-year-old female with a past medical history as [...] 2016. The pathology demonstrated a 2.5 cm ER/IA positive, HER2 negative tumor in the left breast with micro metastasis in 1 of 3 sentinel lymph nodes (0.8 mm). Overall grade was 3. Lymphovascular invasion was present. Closest margin was 2 mm from anterior margin. ER was positive greater than 95%. IA positive greater than 95% with moderate to strong staining intensity. HER2 was equivocal 1-2+; nonamplified by FISH testing. She declined adjuvant chemotherapy but received adjuvant radiation. Was started on AI with anastrozole beginning 10/2016. Was found to have germline BRCA2 mutation. She had declined prophylactic mastectomy and had been undergoing screening for breast cancer. Recently presented to [facility] on 03/12/2024 with a complaint of increasing shortness of breath. Prior to that she had been on a 10-day trip to [place]. CTA of the chest same day demonstrated [...] on 03/22/2024. Most recent screening mammogram 01/2024[facility] Son in [place]--helps with house and yard. Daughter in [place]. about 3 years ago. Prior therapy: 1) Anastrozole adjuvant setting--began 10/2016. 2) Letrozole. 3) Olaparib for metastatic disease--didn't tolerate. 4) Gemcitabine. C1D1 07/23/2024. Current therapy: 1) Elacestrant. Began 09/16/2024 Presents for ongoing oncologic management. Interim history: Continues to tolerating elacestrant well. Has developed more constipation. Linzess at 145 was too strong. On lower dose about 5 days. Bowels moving but straining to go. Has Colace on hand, but hasn't tried it yet. Taking Ativan in the mornings which seems to be helping with anxiety. Has not taken it at night. Continues on olanzapine 5 mg at bedtime. Typically goes to bed around 8 or 830. Wakes up around 2 or 3 in the morning and has a hard time going back to sleep. Has an appetite but eats small amounts. Not nauseated. Still undergoing right-sided thoracenteses. Most recently had 1250 cc taken off which was less than previously. 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 Had been on alendronate. PAST SURGICAL HISTORY Procedure Laterality Date BSO W/TIESHA AND OMENECTOMY FOR MALIGNANCY 07/14/2012 BX BREAST W/DEVICE 1ST LESION ULTRASOUND GUID Left 04/04/2016 U/S Bx outer mid left breast BX/EXC LYMPH NODE OPEN DEEP AXILLARY NODE Left 04/29/2016 HYSTERECTOMY HX 2009 LX PARTIAL COLECTOMY 07/14/2012 MASTECTOMY, PARTIAL Left 04/29/2016 PAST SURGICAL HISTORY OF Left ablation of vein of left leg for venous reflux LORazepam (ATIVAN) 0.5 mg Take 1-2 tablets by mouth three times a day as needed. OTC PRODUCT Vitamin D/Vitamin K2/Turmeric: Take one tablet by mouth once daily. linaCLOtide (LINZESS) 72 mcg capsule Take 1 capsule by mouth once daily. Take capsule on an empty stomach at least 30 minutes before a meal at the same time each day. Capsule should be swallowed whole. DO NOT chew or crush. OLANZapine (ZYPREXA) 5 mg tablet Take 1 tablet by mouth daily at bedtime. cinnamon bark (CINNAMON ORAL) Take 1 tablet by mouth once daily. LYSINE ORAL Take 1 tablet by mouth once daily. apixaban (ELIQUIS) 5 mg tab(s) Take 1 tablet by mouth two times a day. elacestrant (ORSERDU) 345 mg tablet Take 1 tablet (345 mg) by mouth once daily. with a meal. calcium carbonate/vitamin D3 (CALCIUM + D ORAL) Take 1 tablet by mouth once daily. ginkgo biloba (GINKOBA ORAL) Take 120 mg by mouth once daily. MULTI-VITAMIN ORAL Take 1 tablet by mouth once daily. GLUCOSAMINE SULFATE (GLUCOSAMINE ORAL) Take 1 tablet by mouth once daily. OLANZapine (ZYPREXA) 10 mg tablet TAKE 1 TABLET BY MOUTH EVERYDAY AT BEDTIME (Patient not taking: Reported on 11/22/2024) cholecalciferol (VITAMIN D-3) 400 unit tab Take 1 tablet by mouth once daily. With K2 (Patient not taking: Reported on 11/22/2024) TURMERIC ROOT EXTRACT ORAL Take 450 mg by mouth once daily. (Patient not taking: Reported on 11/22/2024) ALLERGIES Allergen Reactions Zofran [Ondansetron] Other: See Comments Migraines. Demeral [Meperidine] GI Upset Percocet [Oxycodone* GI Upset Social History Tobacco Use Smoking status: Never Smokeless tobacco: Never Vaping Use Vaping status: Never Used Substance Use Topics Alcohol use: Not Currently Comment: occ Drug use: Never FAMILY HISTORY Problem Relation Age of Onset Hypertension Mother other (pulmonary embolism) Mother Stroke Father Heart Brother Heart Attack Brother Colon Cancer Maternal Grandmother Heart Maternal Grandfather Prostate Cancer Paternal Grandfather Breast Cancer Maternal Aunt Cancer Maternal Aunt liver Ovarian cancer Maternal cousin Breast Cancer Paternal Aunt Breast Cancer Paternal cousin Breast Cancer Paternal cousin REVIEW OF SYSTEMS: Negative other than HPI. PHYSICAL EXAM: Vitals: Blood pressure 108/70, pulse 96, temperature 36.9 ?C (98.4 ?F), temperature source Temporal, weight 66 kg (145 lb 8 oz), SpO2 96%. Well-appearing and in no acute distress. EYES: Sclerae are anicteric bilaterally. LYMPHATIC: There is no palpable adenopathy. CARDIOVASCULAR: Rhythm is regular. ABDOMEN: The abdomen is nondistended. Extremities: No swelling or edema. SKIN: No jaundice. Somewhat depressed affect. IMAGING: PET [facility]: PET scan demonstrated skeletal metastases including right iliac wing, left acetabulum, left sacral parris in the region of the fifth thoracic vertebra. There was also increased tracer concentration in the left hemithorax at the pleural interface fulfilling quantitative criteria for viable neoplasm. MRI brain [facility]: Small focal enhancing nodule measuring 4 mm along the posterior lateral aspect of the right occipital lobe with minimal surrounding edema. Genetic testing: BRCA2 mutation. 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 Elacestrant. -PIK3CA mutation. Alpelisib plus fulvestrant or capivaertib plus fulvestrant -BRCA2 mutation. -TP53 mutation (0.2%). HER2 1-2+ on original surgical specimen 03/2016. 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 Assessment: -Metastatic recurrence of pT2b N1 WI (SN) ER/IA positive, HER2 negative invasive ductal carcinoma of the left breast. -Right-sided malignant pleural effusion. -History of ovarian cancer. -Tolerating elacestrant well with exception of constipation. -Most recent cytology on right-sided fluid showed atypical cells. -Discussed plan going forward with her and her son. If today's tumor markers are lower, we will continue elacestrant. If there is evidence of progressive disease then I would recommend Enhertu based on HER2 1-2+ on original pathology since repeat biopsy not feasible and pleural fluid unlikely to yield enough cells for HER2 repeat testing. However, at this time she does not wish to go back on chemotherapy. Plan: -Continue elacestrant. -Repeat MRI brain per [facility]'s recommendations. -Continue biweekly thoracentesis for now. -Continue Zometa every 3 months. -Continue olanzapine 5 mg at HS. - Recommended beginning Colace daily. - If that does not help then may try alternating Linzess 145 mg 1 day with 72 mg the following day. - Oncology nutrition consultation. - Office visit with lab work in about a month. - PET scan in 2 months. (I27.82) Other chronic pulmonary embolism without acute cor pulmonale (HCC) Assessment: -Tolerating apixaban well. Plan: -Continue apixaban. Portions of this documentation were copied and pasted from my previous office visit note dated 10/07/2024 in order to provide a cohesive continuity of the history. The note has been reviewed and edited and updated as necessary. I spent a total of 30 minutes on the date of the service which included preparing to see the patient, [id number] patient care, completing clinical documentation, counseling and educating the patient/family/caregiver, communicating with other HCPs (not separately reported), and communicating results to the patient/family/caregiver. John Albright DO CNOVSP Observed: 11/22/2024 2:50 PM Status: COMPLETED Source: [facility] Visit (SP) Office (NELIDA) JOYCE ROBLES ([id number]) 1955 F Date Time Provider Department 11/22/24 2:50 PM JOHN ALBRIGHT During your visit today, we recorded the following information about you: Temperature Pulse Blood pressure Weight 98.4 degrees 96/minute 108/70 66 kg John Albright DO 11/22/2024 4:51 PM Signed Oncologic problem(s): 1) MBC. 2) History of ovarian cancer. 3) Germline BRCA2 mutation. HPI: The patient is a 69-year-old female with a past medical history as [...] 2016. The pathology demonstrated a 2.5 cm ER/IA positive, HER2 negative tumor in the left breast with micro metastasis in 1 of 3 sentinel lymph nodes (0.8 mm). Overall grade was 3. Lymphovascular invasion was present. Closest margin was 2 mm from anterior margin. ER was positive greater than 95%. IA positive greater than 95% with moderate to strong staining intensity. HER2 was equivocal 1-2+; nonamplified by FISH testing. She declined adjuvant chemotherapy but received adjuvant radiation. Was started on AI with anastrozole beginning 10/2016. Was found to have germline BRCA2 mutation. She had declined prophylactic mastectomy and had been undergoing screening for breast cancer. Recently presented to [facility] on 03/12/2024 with a complaint of increasing shortness of breath. Prior to that she had been on a 10-day trip to [place]. CTA of the chest same day demonstrated [...] on 03/22/2024. Most recent screening mammogram 01/2024. [facility]. Son in [place]--helps with house and yard. Daughter in [place]. about 3 years ago. Prior therapy: 1) Anastrozole adjuvant setting--began 10/2016. 2) Letrozole. 3) Olaparib for metastatic disease--didn't tolerate. 4) Gemcitabine. C1D1 07/23/2024. Current therapy: 1) Elacestrant. Began 09/16/2024 Presents for ongoing oncologic management. Interim history: Continues to tolerating elacestrant well. Has developed more constipation. Linzess at 145 was too strong. On lower dose about 5 days. Bowels moving but straining to go. Has Colace on hand, but hasn't tried it yet. Taking Ativan in the mornings which seems to be helping with anxiety. Has not taken it at night. Continues on olanzapine 5 mg at bedtime. Typically goes to bed around 8 or 830. Wakes up around 2 or 3 in the morning and has a hard time going back to sleep. Has an appetite but eats small amounts. Not nauseated. Still undergoing right-sided thoracenteses. Most recently had 1250 cc taken off which was less than previously. 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 Had been on alendronate. PAST SURGICAL HISTORY Procedure Laterality Date BSO W/TIESHA AND OMENECTOMY FOR MALIGNANCY 07/14/2012 BX BREAST W/DEVICE 1ST LESION ULTRASOUND GUID Left 04/04/2016 U/S Bx outer mid left breast BX/EXC LYMPH NODE OPEN DEEP AXILLARY NODE Left 04/29/2016 HYSTERECTOMY HX 2009 LX PARTIAL COLECTOMY 07/14/2012 MASTECTOMY, PARTIAL Left 04/29/2016 PAST SURGICAL HISTORY OF Left ablation of vein of left leg for venous reflux LORazepam (ATIVAN) 0.5 mg Take 1-2 tablets by mouth three times a day as needed. OTC PRODUCT Vitamin D/Vitamin K2/Turmeric: Take one tablet by mouth once daily. linaCLOtide (LINZESS) 72 mcg capsule Take 1 capsule by mouth once daily. Take capsule on an empty stomach at least 30 minutes before a meal at the same time each day. Capsule should be swallowed whole. DO NOT chew or crush. OLANZapine (ZYPREXA) 5 mg tablet Take 1 tablet by mouth daily at bedtime. cinnamon bark (CINNAMON ORAL) Take 1 tablet by mouth once daily. LYSINE ORAL Take 1 tablet by mouth once daily. apixaban (ELIQUIS) 5 mg tab(s) Take 1 tablet by mouth two times a day. elacestrant (ORSERDU) 345 mg tablet Take 1 tablet (345 mg) by mouth once daily. with a meal. calcium carbonate/vitamin D3 (CALCIUM + D ORAL) Take 1 tablet by mouth once daily. ginkgo biloba (GINKOBA ORAL) Take 120 mg by mouth once daily. MULTI-VITAMIN ORAL Take 1 tablet by mouth once daily. GLUCOSAMINE SULFATE (GLUCOSAMINE ORAL) Take 1 tablet by mouth once daily. OLANZapine (ZYPREXA) 10 mg tablet TAKE 1 TABLET BY MOUTH EVERYDAY AT BEDTIME (Patient not taking: Reported on 11/22/2024) cholecalciferol (VITAMIN D-3) 400 unit tab Take 1 tablet by mouth once daily. With K2 (Patient not taking: Reported on 11/22/2024) TURMERIC ROOT EXTRACT ORAL Take 450 mg by mouth once daily. (Patient not taking: Reported on 11/22/2024) ALLERGIES Allergen Reactions Zofran [Ondansetron] Other: See Comments Migraines. Demeral [Meperidine] GI Upset Percocet [Oxycodone* GI Upset Social History Tobacco Use Smoking status: Never Smokeless tobacco: Never Vaping Use Vaping status: Never Used Substance Use Topics Alcohol use: Not Currently Comment: occ Drug use: Never FAMILY HISTORY Problem Relation Age of Onset Hypertension Mother other (pulmonary embolism) Mother Stroke Father Heart Brother Heart Attack Brother Colon Cancer Maternal Grandmother Heart Maternal Grandfather Prostate Cancer Paternal Grandfather Breast Cancer Maternal Aunt Cancer Maternal Aunt liver Ovarian cancer Maternal cousin Breast Cancer Paternal Aunt Breast Cancer Paternal cousin Breast Cancer Paternal cousin REVIEW OF SYSTEMS: Negative other than HPI. PHYSICAL EXAM: Vitals: Blood pressure 108/70, pulse 96, temperature 36.9 ?C (98.4 ?F), temperature source Temporal, weight 66 kg (145 lb 8 oz), SpO2 96%. Well-appearing and in no acute distress. EYES: Sclerae are anicteric bilaterally. LYMPHATIC: There is no palpable adenopathy. CARDIOVASCULAR: Rhythm is regular. ABDOMEN: The abdomen is nondistended. Extremities: No swelling or edema. SKIN: No jaundice. Somewhat depressed affect. IMAGING: PET [facility]: PET scan demonstrated skeletal metastases including right iliac wing, left acetabulum, left sacral parris in the region of the fifth thoracic vertebra. There was also increased tracer concentration in the left hemithorax at the pleural interface fulfilling quantitative criteria for viable neoplasm. MRI brain [facility]: Small focal enhancing nodule measuring 4 mm along the posterior lateral aspect of the right occipital lobe with minimal surrounding edema. Genetic testing: BRCA2 mutation. 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 Elacestrant. -PIK3CA mutation. Alpelisib plus fulvestrant or capivaertib plus fulvestrant -BRCA2 mutation. -TP53 mutation (0.2%). HER2 1-2+ on original surgical specimen 03/2016. 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 Assessment: -Metastatic recurrence of pT2b N1 WI (SN) ER/IA positive, HER2 negative invasive ductal carcinoma of the left breast. -Right-sided malignant pleural effusion. -History of ovarian cancer. -Tolerating elacestrant well with exception of constipation. -Most recent cytology on right-sided fluid showed atypical cells. -Discussed plan going forward with her and her son. If today's tumor markers are lower, we will continue elacestrant. If there is evidence of progressive disease then I would recommend Enhertu based on HER2 1-2+ on original pathology since repeat biopsy not feasible and pleural fluid unlikely to yield enough cells for HER2 repeat testing. However, at this time she does not wish to go back on chemotherapy. Plan: -Continue elacestrant. -Repeat MRI brain per [facility]'s recommendations. -Continue biweekly thoracentesis for now. -Continue Zometa every 3 months. -Continue olanzapine 5 mg at HS. - Recommended beginning Colace daily. - If that does not help then may try alternating Linzess 145 mg 1 day with 72 mg the following day. - Oncology nutrition consultation. - Office visit with lab work in about a month. - PET scan in 2 months. (I27.82) Other chronic pulmonary embolism without acute cor pulmonale (HCC) Assessment: -Tolerating apixaban well. Plan: -Continue apixaban. Portions of this documentation were copied and pasted from my previous office visit note dated 10/07/2024 in order to provide a cohesive continuity of the history. The note has been reviewed and edited and updated as necessary. I spent a total of 30 minutes on the date of the service which included preparing to see the patient, [id number] patient care, completing clinical documentation, counseling and educating the patient/family/caregiver, communicating with other HCPs (not separately reported), and communicating results to the patient/family/caregiver. John Albright, DO Allergies As of Date: 11/22/2024 Noted Allergy Reaction ZOFRAN (ONDANSETRON) 07/23/2024 14 - Other: See Comments Comments: Migraines. 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) [C50.912, C79.51] Malignant pleural effusion (HCC) [J91.0] Other chronic pulmonary embolism without acute cor pulmonale (HCC) [I27.82] Drug-induced constipation [K59.03] Order(s):CONSULT TO ONCOLOGY NUTRITION [3358520] Order #: [id number]: 1 FUTURE NM PET/CT SKULL-THIGH SUBSEQUENT [2533016] Order #: [id number] FUTURE CONSULT TO ONCOLOGY NUTRITION [[id number]] Order #: [id number]: 1 FUTURE Follow-up and Disposition History for Encounter Date Provider Department Center 11/22/2024 [id number] ALBRIGHT [facility] Prescriptions as of 11/22/2024 - LORazepam (ATIVAN) 0.5 mg Take 1-2 tablets by mouth three times a day as needed. - OTC PRODUCT Vitamin D/Vitamin K2/Turmeric: Take one tablet by mouth once daily. - linaCLOtide (LINZESS) 72 mcg capsule Take 1 capsule by mouth once daily. Take capsule on an empty stomach at least 30 minutes before a meal at the same time each day. Capsule should be swallowed whole. DO NOT chew or crush. - OLANZapine (ZYPREXA) 5 mg tablet Take 1 tablet by mouth daily at bedtime. - cinnamon bark (CINNAMON ORAL) Take 1 tablet by mouth once daily. - apixaban (ELIQUIS) 5 mg tab(s) Take 1 tablet by mouth two times a day. - elacestrant (ORSERDU) 345 mg tablet Take 1 tablet (345 mg) by mouth once daily. with a meal. - calcium carbonate/vitamin D3 (CALCIUM + D ORAL) Take 1 tablet by mouth once daily. - ginkgo biloba (GINKOBA ORAL) Take 120 mg by mouth once daily. - MULTI-VITAMIN ORAL Take 1 tablet by mouth once daily. - GLUCOSAMINE SULFATE (GLUCOSAMINE ORAL) Take 1 tablet by mouth once daily. 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 *10/07/2024 Encounter Status:Closed by JOHN ALBRIGHT on 11/22/24 COMP METAB 2000 PNL SERPL Collected: 2:36 PM Status: F Source: [facility] Order Comment: Specimen Type : BLOOD SPECIMEN Ordering Facility: [facility] Address: [address] [place] [address] TYPE CODE TESTS RESULT OUT OF RANGE REFERENCE UNITS LAB 2885-2(LOINC) Prot SerPl-mCnc 5.6 Low 6.3-8.0 g/dL LAB 1751-7(LOINC) Albumin SerPl-mCnc 3.1 Low 3.9-4.9 g/dL LAB 06568-3(LOINC) Calcium SerPl-mCnc 9.0 8.5-10.2 mg/dL LAB 1975-2(LOINC) Bilirub SerPl-mCnc 0.5 0.2-1.3 mg/dL LAB 6768-6(LOINC) ALP SerPl-cCnc 79 34-123 U/L LAB 1920-8(LOINC) AST SerPl-cCnc 19 13-35 U/L LAB 1742-6(LOINC) ALT SerPl-cCnc 12 7-38 U/L LAB 2345-7(LOINC) Glucose SerPl-mCnc 143 High 74-99 mg/dL Result Comment: The [place] Diabetes Association (ADA) provides guidance for cutoff values for fasting glucose and random glucose. The ADA defines fasting as no caloric intake for at least 8 hours. Fasting plasma glucose results between 100 to 125 mg/dL indicate increased risk for diabetes (prediabetes). Fasting plasma glucose results greater than or equal to 126 mg/dL meet the criteria for diagnosis of diabetes. In the absence of unequivocal hyperglycemia, results should be confirmed by repeat testing. In a patient with classic symptoms of hyperglycemia or hyperglycemic crisis, random plasma glucose results greater than or equal to 200 mg/dL meet the criteria for diagnosis of diabetes. Reference: Standards of Medical Care in Diabetes 2016, [place] Diabetes Association. Diabetes Care. 2016.39(Suppl 1). LAB 3094-0(LOINC) BUN SerPl-mCnc 17 7-21 mg/ dL LAB 2160-0(LOINC) Creat SerPl-mCnc 0.80 0.58-0.96 mg/dL LAB 2951-2(LOINC) Sodium SerPl-sCnc 138 136-144 mmol/L LAB 2823-3(LOINC) Potassium SerPl-sCnc 3.9 3.7-5.1 mmol/L LAB 2075-0(LOINC) Chloride SerPl-sCnc 106 98-107 mmol/L LAB 2028-9(LOINC) CO2 SerPl-sCnc 27 22-30 mmo l/L LAB 43645-6(LOINC) Anion Gap SerPl-sCnc 5 Low 8-15 mmol/L LAB 87066-9(LOINC) Creatinine + eGFR Pnl SerPlBld 79 >=60 mL/min/1 .73m??? Result Comment: Estimated Gl omerular Filtration Rate (eGFR) is calculated using the 2020 CKD-EPI creatinine equation. This equation utilizes serum creatinine, sex, and age as parameters. The creatinine assay has traceable calibration to isotope dilution-mass spectrometry. Refer to KDIGO guidelines for clinical interpretation. In patients with unstable renal function, e.g. those with acute kidney injury, the eGFR may not accurately reflect actual GFR. Performed By: #### [id number] # ### [facility] CLIA [id number] [address] [place] [address] [place] CBC W AUTO DIFF BLD Collected: 11/22/2024 2:[address] atus: F Source: [facility] Order Comment: Specimen Type : BLOOD SPECIMEN Ordering Facility: [facility] Address: [address] [place] [address] TYPE CODE TESTS RESULT OUT OF RANGE REFERENCE UNITS LAB 6690-2(INC) WBC # Bld Auto 8.88 3.70-11.00 k/uL LAB 789-8(INC) RBC # Bld Auto 4.23 3.90-5.20 m/ uL LAB 718-7(LOINC) Hgb Bld-mCnc 13.7 11.5-15.5 g/dL LAB 4544-3(LOINC) Hct VFr Bld Auto 41.5 36.0-46.0 % LAB 787-2(LOINC) MCV RBC Auto 98.1 80.0-100.0 fL LAB 785-6(LOINC) MCH RBC Qn Auto 32.4 26.0-34.0 p g LAB 786-4(LOINC) MCHC RBC Auto-mCnc 33.0 30.5-36.0 g/dL LAB 76204-4(LOINC) RDW RBC-Rto 12.6 11.5-15.0 % LAB 777-3(LOINC) Platelet # Bld Auto 226 150-400 k/uL LAB 02975-3(LOINC) PMV Bld Auto 9.5 9.0-12.7 fL LAB 770-8(LOINC) Neutrophils/leuk NFr Bld Auto 78.9 % LAB 751-8(LOINC) Neutrophils # Bld Auto 7.00 1.45-7.50 k/uL LAB 736-9(LOINC) Lymphocytes/leuk NFr Bld Auto 12.6 % LAB 731-0(LOINC) Lymphocytes # Bld Auto 1.12 1.00-4.00 k/uL LAB 5905-5(LOINC) Monocytes/leuk NFr Bld Auto 7.8 % LAB 742-7(LOINC) Monocytes # Bld Auto 0.69 <0.87 k/uL LAB 713-8(LOINC) Eosinophil/leuk NFr Bld Auto 0.2 % LAB 711-2(LOINC) Eosinophil # Bld Auto <0.03 <0.46 k/uL LAB 706-2(LOINC) Basophils/leuk NFr Bld Auto 0.3 % LAB 704-7(LOINC) Basophils # Bld Auto 0.03 <0.11 k/uL LAB 84619-9(LOINC) Imm Granulocytes/jose k NFr Bld Auto 0.2 % LAB 13031-0(LOINC) Imm Granulocytes # Bld Auto <0.03 <0.10 k/uL LAB 58209-5(LOINC) nRBC/100 WBC Bld-Rto 0.0 /100 WBC LAB 771-6(LOINC) nRBC # Bld Auto <0.01 <0.01 k/u L LAB 92597-1(INC) Differential method Bld Auto Performed By: #### [id number] # ### [facility] CLIA [id number] [address] [place] [address] [place] CA 27.29 Collected: 5 2:36 PM Status: F Source: [facility] Order Comment: Specimen Type : BLOOD SPECIMEN Ordering Facility: [facility] Address: [address] [place] [address] TYPE CODE TESTS RESULT OUT OF RANGE REFERENCE UNITS LAB 27486-8([facility]) Cancer Ag27-29 SerPl-aCnc 929.0 High <38.6 U/mL Result Comment: The CA27.29 test was performed using the Siemens Centaur XP chemiluminometric immunoassay method. Results obtained with different assay methods or kits cannot be used interchangeably. [facility] will discontinue CA 27.29 testing effective 11/30/2024, with CA 15-3 as its replacement. In preparation for the discontinuation, CA 15-3 testing in parallel was conducted with CA 27.29 to establish a new baseline. Performed By: #### [id number] # ### [facility] CLIA [id number] [address] [place] [address] OF [place] CANCER AG15-3 SERPL-ACNC Collected: 06/2025 2:36 PM Status: F Source: [facility] Order Comment: Specimen Type : BLOOD SPECIMEN Ordering Facility: [facility] Address: [address] [place] [address] TYPE CODE TESTS RESULT OUT OF RANGE REFERENCE UNITS LAB 6875-9([facility]) Cancer Ag15-3 SerPl-aCnc 479.1 High <26.0 U/mL Result Comment: The CA 15-3 test methodology used is the Electrochemiluminescence Immunoassay by [employer]. Results obtained with different methods or kits cannot be used interchangeably. [facility] will discontinue CA 27.29 testing effective 11/30/2024, with CA 15-3 as its replacement. In preparation for the discontinuation, CA 15-3 testing in parallel was conducted with CA 27.29 to establish a new baseline. Performed By: #### [id number] ## ## [facility] CLIA [id number] [address] [place] [address] CNPN Observed: 11/22/2024 12:00 AM Status: COMPLETED Source: [facility] Telephone (NELIDA) JOYCE ROBLES ([id number]) 1955 F Date Time Provider Department 11/22/24 TIFFANY RUIZ During your visit today, we recorded the following information about you: Tiffany Ruiz LISW 11/22/2024 3:48 PM Signed SOCIAL WORK FOLLOW UP NOTE: [facility] Date of service: November 22, 2024 Joyce Robles is being seen for a follow up social work visit. Today's visit includes: patient and son, Will TOPICS ADDRESSED: SW met with pt and her son this date following OV. Pt reports she had spoken with provider about assistance from [employer] Whe[employer]. SW spoke with pt regarding the service this date and inquired if pt would like to call or have SW complete the online referral. Pt opted for SW to complete. SW completed referral online this date for pt and provided pt direct callback number. SW and pt discussed pt's functioning and any other needs this date. Pt and son appreciate of assistance, no other needs identified. PLAN: Continue follow up as needed F/U APPOINTMENT: PRN Assigned SW listed in Care Team tab: Yes IRINA Benavides Allergies As of Date: 11/22/2024 Noted Allergy Reaction ZOFRAN (ONDANSETRON) 07/23/2024 14 - Other: See Comments Comments: Migraines. DEMERAL (MEPERIDINE) 04/01/2016 8 - GI Upset PERCOCET (OXYCODONE-ACETAMINOPHEN)04/01/2016 8 - GI Upset Date Reviewed: 11/22/2024 Reviewed by: Paulina Jay Ma, MA - Fully Assessed Reason for Visit: Social Work Services [507] Prescriptions as of 11/22/2024 - LORazepam (ATIVAN) 0.5 mg Take 1-2 tablets by mouth three times a day as needed. - OTC PRODUCT Vitamin D/Vitamin K2/Turmeric: Take one tablet by mouth once daily. - linaCLOtide (LINZESS) 72 mcg capsule Take 1 capsule by mouth once daily. Take capsule on an empty stomach at least 30 minutes before a meal at the same time each day. Capsule should be swallowed whole. DO NOT chew or crush. - OLANZapine (ZYPREXA) 5 mg tablet Take 1 tablet by mouth daily at bedtime. - cinnamon bark (CINNAMON ORAL) Take 1 tablet by mouth once daily. - apixaban (ELIQUIS) 5 mg tab(s) Take 1 tablet by mouth two times a day. - elacestrant (ORSERDU) 345 mg tablet Take 1 tablet (345 mg) by mouth once daily. with a meal. - calcium carbonate/vitamin D3 (CALCIUM + D ORAL) Take 1 tablet by mouth once daily. - ginkgo biloba (GINKOBA ORAL) Take 120 mg by mouth once daily. - MULTI-VITAMIN ORAL Take 1 tablet by mouth once daily. - GLUCOSAMINE SULFATE (GLUCOSAMINE ORAL) Take 1 tablet by mouth once daily. 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 Albright. -SCHEDULED Paz Parker 01/06/2025 1:54 PM Signed Patient called stating she has not heard from [facility] for scheduling Pet Scan. Please schedule and inform patient. Selin Garnica 01/06/2025 2:16 PM Signed Refaxed order to [facility] Selin Marroquin, Paz 01/07/2025 10:57 AM Signed Patient called back stating she has not heard from [facility] and is asking to speak to service desk associate regarding scheduling. She is asking for a number to call or if we could call and get her scheduled. She states she is to have appointment before scheduled office visit with Dr. Albright. Selin Garnica 01/07/2025 1:44 PM Signed Called and scheduled Pet Scan at [facility] for 01/25 @ 8. Called and confirmed date and time with patient. Selin Garnica Allergies As of Date: 11/22/2024 Noted Allergy Reaction ZOFRAN (ONDANSETRON) 07/23/2024 14 - Other: See Comments Comments: Migraines. DEMERAL (MEPERIDINE) 04/01/2016 8 - GI Upset PERCOCET (OXYCODONE-ACETAMINOPHEN)04/01/2016 8 - GI Upset Date Reviewed: 11/22/2024 Reviewed by: Paulina Jay Ma, MA - Fully Assessed Reason for Visit: AVS 11/22 [Other] Prescriptions as of 01/07/2025 - linaCLOtide (LINZESS) 72 mcg capsule Take 1 capsule by mouth once daily. Take capsule on an empty stomach at least 30 minutes before a meal at the same time each day, alternating with 2 capsules once a day. Capsule should be swallowed whole. DO NOT chew or crush. - OTC PRODUCT Vitamin D/Vitamin K2/Turmeric: Take one tablet by mouth once daily. - OLANZapine (ZYPREXA) 5 mg tablet Take 1 tablet by mouth daily at bedtime. - cinnamon bark (CINNAMON ORAL) Take 1 tablet by mouth once daily. - apixaban (ELIQUIS) 5 mg tab(s) Take 1 tablet by mouth two times a day. - elacestrant (ORSERDU) 345 mg tablet Take 1 tablet (345 mg) by mouth once daily. with a meal. - calcium carbonate/vitamin D3 (CALCIUM + D ORAL) Take 1 tablet by mouth once daily. - ginkgo biloba (GINKOBA ORAL) Take 120 mg by mouth once daily. - MULTI-VITAMIN ORAL Take 1 tablet by mouth once daily. - GLUCOSAMINE SULFATE (GLUCOSAMINE ORAL) Take 1 tablet by mouth once daily. 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 Author Type: Nurse Practitioner Type: Progress Notes Filed: 10/30/2024 09:59 Note Text: Neurological Prim BRAIN TUMOR AND NEURO-ONCOLOGY CENTER TELE-HEALTH VISIT PROGRESS NOTE This is a virtual visit using [employer] video visit. It required patient-provider interaction for the medical decision making as documented below. I have communicated my name and active licensure. The patient's identity and physical location were verified at the time of this visit. Either the patient or their legal textiles sales representative has been informed of the risks and benefits of -- and alternatives to -- treatment through a remote evaluation and consents to proceed with the evaluation remotely. Persons Present: Patient AND son (Will) Chief Complaint/Reason: Brain mets MEDICAL DECISION MAKING Assessment/Plan: 1. Brain mets s/p GKRS on 06/16/24 - New MRI brain scan shows no new intracranial metastatic lesions - Noted, stable punctate Left temporal enhancement; not previously treated (series 13, image 35) - Images reviewed with her and her son today including comparison to remote Jun 2024 exam - Recommend follow up appointment with a new MRI brain scan in 3 months (due December 2024) - Reviewed signs and symptoms that would prompt sooner evaluation - She has our contact information and was advised to call if new symptoms, questions or concerns arise prior to next scheduled visit. - All questions were answered. Portions of this note have been copied and updated appropriately. I spent a total of 25 minutes on the date of the service which included preparing to see the patient, [id number]-fujl patient care, completing clinical documentation, obtaining and/or reviewing separately obtained history, performing a medically appropriate examination, counseling and educating the patient/family/caregiver, communicating with other HCPs (not separately reported), independently interpreting results (not separately reported), communicating results to the patient/family/caregiver, and care coordination (not separately reported). Lizet Agudelo APRN.SOLE MOLDER Certified Nurse Practitioner cc: Swapnil Gonzales MD AND John Albright MD - [facility] HPI: Joyce Robles is a very pleasant 69 year old female who is here for a follow-up visit for breast cancer with brain metastases. She is s/p GKRS by Dr. Swapnil Gonzales and Dr. Jessie Clayton as outlined below: 06/16/24: GKRS to 1) Right occ 2) Left fr. Primary cancer site : Breast Primary oncologist : Dr. John Albright Current systemic treatment : Elacestrant (Orserdu) Current steroids: None Interval history: 08/05/24 Presents today with son (Will) for follow up with a new MRI brain scan for review. Since last visit, no new neurologic symptoms or concerns. No SOB today. Lives independently and drives without issues. Reports some generalized weakness last few days. No recent illness or fevers. 10/30/24 No new neurologic symptoms or concerns. Lives independently. Continues with weekly thoracentesis. No SOB today. Has trouble staying asleep at night (sleeps 9PM to 3AM). ROS: Neurological : No complaint of new or worsening headaches + Complaint of migraines, chronic (uses Tylenol prn) No complaint of tinnitus No complaint of decreased hearing No complaint of diplopia No complaints of blurred vision. No complaint of vision loss No complaint of arm/leg numbness or tingling No problem with limb coordination or imbalance No complaint of gait instability + Complaints of memory changes/"chemo brain" General : + HTN (on HCTZ) + PE (on Eliquis) + Trouble sleeping (on Zyprexa) Physical examination: Patient is in no distress. Mental status: Clear Speech: Fluent. Data Reviewed: Most recent imaging IMPRESSION: No evidence of an acute intracranial process. No enhancing intracranial lesion to suggest metastasis. Drafter: KEVIN Transcribe Date/Time: Oct 07 2024 10:28A Dictated by : LITA SCALES MD This examination was interpreted and the report reviewed and electronically signed by: LITA SCALES MD on Oct 07 2024 10:43AM EST * * *Final Report* * * DATE OF EXAM: Oct 07 2024 10:10AM [facility] 0295 - MRI BRAIN WO/W IVCON / PROCEDURE REASON: multiple diagnoses * * * * Physician Interpretation * * * * MRI BRAIN WO/W IVCON HISTORY: Altered mental status, unspecified altered mental status type. Secondary malignant neoplasm of brain (HCC) TECHNIQUE: Routine brain MRI protocol without and with contrast including diffusion images. MQ: [id number] Contrast: 7 mL Elucirem IV COMPARISON: None. RESULT: Acute Change: There is no evidence of restricted diffusion to suggest an acute infarct. Hemorrhage: No evidence of prior parenchymal hemorrhage on the susceptibility weighted images. Mass Lesion/ Mass Effect: No evidence of an intracranial mass or extra-axial fluid collection. No abnormal parenchymal or leptomeningeal enhancement is noted following contrast administration. No significant mass effect. Chronic Change: The white matter is within normal limits of signal intensity for age. Parenchyma: There is mild generalized parenchymal volume loss. Ventricles: Ventriculomegaly corresponds to the degree of parenchymal volume loss. Skull Base: Hypothalamic and pituitary region are grossly normal. Craniocervical junction is normal. No significant marrow replacement process. Vasculature: Major intracranial arterial structures, and dural venous sinuses show typical flow void, suggesting patency by spin echo criteria. Other: The visualized paranasal sinuses and mastoid air cells are clear. The orbits and extracranial soft tissues are unremarkable. KPS: 90 CNPN Observed: 10/30/2024 12:00 AM Status: COMPLETED Source: [facility] TIFFANIEJOYCE Pantoja ([id number]) 1955 F Date Time Provider Department 10/30/24 LIZET AGUDELO [facility] During your visit today, we recorded the following information about you: Lizet Agudelo APRN.CNP 10/30/2024 9:53 AM Signed Scheduling Request - Established Patient Time Frame: End of December 2024 Orders: MRI BRAIN WO/W IVCON @ [facility] Provider: Lizet Agudelo APRN.CNP Visit type: Virtual Visit Diagnosis: Brain mets Allergies As of Date: 10/30/2024 Noted Allergy Reaction ZOFRAN (ONDANSETRON) 07/23/2024 14 - Other: See Comments Comments: Migraines. DEMERAL (MEPERIDINE) 04/01/2016 8 - GI Upset PERCOCET (OXYCODONE-ACETAMINOPHEN)04/01/2016 8 - GI Upset Date Reviewed: 10/18/2024 Reviewed by: Joanna Odom, RN - Fully Assessed Reason for Visit: JESSICA, 2 mo f/up [Other] Primary Visit Diagnosis:Metastasis to brain (HCC) [C79.31] [C79.31] Prescriptions as of 10/30/2024 - linaclotide (LINZESS) 145 mcg capsule Take 1 capsule by mouth once daily. Take capsule on an empty stomach at least 30 minutes before a meal at the same time each day. Capsule should be swallowed whole. DO NOT chew or crush - OLANZapine (ZYPREXA) 5 mg tablet Take 1 tablet by mouth daily at bedtime. - OLANZapine (ZYPREXA) 10 mg tablet TAKE 1 TABLET BY MOUTH EVERYDAY AT BEDTIME - cinnamon bark (CINNAMON ORAL) Take 1 tablet by mouth once daily. - cholecalciferol (VITAMIN D-3) 400 unit tab Take 400 Units by mouth once daily. With K2 - LYSINE ORAL Take 1 tablet by mouth daily at 6 am. - apixaban (ELIQUIS) 5 mg tab(s) Take 1 tablet by mouth two times a day. - elacestrant (ORSERDU) 345 mg tablet Take 1 tablet (345 mg) by mouth once daily. with a meal. - calcium carbonate/vitamin D3 (CALCIUM + D ORAL) Take 1 tablet by mouth once daily. - ginkgo biloba (GINKOBA ORAL) Take 120 mg by mouth once daily. - MULTI-VITAMIN ORAL Take 1 tablet by mouth once daily. - GLUCOSAMINE SULFATE (GLUCOSAMINE ORAL) Take 1 tablet by mouth once daily. - TURMERIC ROOT EXTRACT ORAL Take 450 mg by mouth once daily. 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 *10/07/2024 Encounter Status:Closed by LIZET AGUDELO on 10/30/24 BAS METAB 2000 PNL SERPL Collected: 01/2025 2:02 PM Status: F Source: [facility] Order Comment: Specimen Type : BLOOD SPECIMEN Ordering Facility: [facility] Address: [address] [place] [address] TYPE CODE TESTS RESULT OUT OF RANGE REFERENCE UNITS LAB 2345-7(LOINC) Glucose [facility] 151 High 74-99 mg/dL Result Comment: The [place] Diabetes Association (ADA) provides guidance for cutoff values for fasting glucose and random glucose. The ADA defines fasting as no caloric intake for at least 8 hours. Fasting plasma glucose results between 100 to 125 mg/dL indicate increased risk for diabetes (prediabetes). Fasting plasma glucose results greater than or equal to 126 mg/dL meet the criteria for diagnosis of diabetes. In the absence of unequivocal hyperglycemia, results should be confirmed by repeat testing. In a patient with classic symptoms of hyperglycemia or hyperglycemic crisis, random plasma glucose results greater than or equal to 200 mg/dL meet the criteria for diagnosis of diabetes. Reference: Standards of Medical Care in Diabetes 2016, [place] Diabetes Association. Diabetes Care. 2016.39(Suppl 1). LAB 3094-0(LOINC) BUN SerPl-mCnc 14 7-21 mg/ dL LAB 2160-0(LOINC) Creat SerPl-mCnc 0.81 0.58-0.96 mg/dL LAB 2951-2(LOINC) Sodium SerPl-sCnc 136 136-144 mmol/L LAB 2823-3(LOINC) Potassium SerPl-sCnc 4.6 3.7-5.1 mmol/L LAB 2075-0(LOINC) Chloride SerPl-sCnc 104 98-107 mmol/L LAB 2027-9(LOINC) CO2 SerPl-sCnc 25 22-30 mmo l/L LAB 77300-5(LOINC) Anion Gap SerPl-sCnc 7 Low 8-15 mmol/L LAB 80150-9(LOINC) Calcium SerPl-mCnc 9.4 8.5-10.2 mg/dL LAB 20443-0(LOINC) Creatinine + eGFR Pnl SerPlBld 78 >=60 mL/min/1 .73m??? Result Comment: Estimated Gl omerular Filtration Rate (eGFR) is calculated using the 2020 CKD-EPI creatinine equation. This equation utilizes serum creatinine, sex, and age as parameters. The creatinine assay has traceable calibration to isotope dilution-mass spectrometry. Refer to KDIGO guidelines for clinical interpretation. In patients with unstable renal function, e.g. those with acute kidney injury, the eGFR may not accurately reflect actual GFR. Performed By: #### 92525-0 # ### [facility] CLIA [id number] [address] [place] [address] [place] XR ABD 2V SUPINE W UPR/DECUB/CTL Observed: 10/14/2024 11:56 AM Status: F Source: [facility] * * *Final Report* * * DATE OF EXAM: Oct 14 2024 11:56AM [facility] [id number] - XR ABD 2V SUPINE W UPR/DECUB/CTL / PROCEDURE REASON: multiple diagnoses * * * * Physician Interpretation * * * * EXAMINATION: XR ABD 2V SUPINE W UPR/DECUB/CTL HISTORY: pt has been experiencing constipation and bloatinf for 1.5 weeks. Constipation, unspecified constipation type Abdominal bloating . TECHNIQUE: XR ABD 2V SUPINE W UPR/DECUB/CTL Laterality: NOT APPLICABLE Number of different views (projections): 2 M: XB_1 COMPARISON: Chest radiograph 08/11/2024, imported outside institution PET/CT 04/27/2024 RESULT: 4 images including upright. Comprehensive coverage of the abdominopelvic cavity. Bowel gas pattern nonobstructive. Cpqqc-ou-ehhfualn amount colonic stool. No pneumoperitoneum. No conspicuous bowel wall thickening or pneumatosis. Bibasilar pleural-parenchymal complexes much improved or resolved on the left, mildly improved on the right. Includes effusion and posterior basilar hypoexpansion/hypoaeration. Scoliosis Scattered abdominal and/or abdominal wall surgical clips. IMPRESSION: Benign-appearing abdomen. Nhowk-dz-utkjwwrl amount colonic stool. Overall improved bibasilar pleural-parenchymal complexes. Drafter: KEVIN Transcribe Date/Time: Oct 14 2024 1:37P Dictated by : LOIDA LEMUS MD This examination was interpreted and the report reviewed and electronically signed by: LOIDA LEMUS MD on Oct 14 2024 1:45PM EST [id number] Observed: 10/14/2024 11:40 AM Status: COMPLETED Source: [facility] HNO ID: [id number] Author: JANICE SANZ Tech Service: ? Author Type: Technologist Type: Progress Notes Filed: 10/14/2024 11:57 Note Text: Radiology Service Progress Note PATIENT NAME: Joyce Robles DATE OF SERVICE: October 14, 2024 TIME: 11:42 AM PATIENT IDENTITY VERIFICATION COMPLETED USING TWO (2) IDENTIFIERS: Name and Date of confirmed by patient verbally. FALL SCREENING: Has the patient had 2 falls in the last year or 1 fall with injury or currently using an Ambulatory Assistive Device (Walker, Cane, Wheelchair, Crutches, etc.)? No PATIENT GENDER DATA: Assigned female at . status: : No status: NO. PATIENT RELEVANT IMPLANT DATA REVIEWED: Not Applicable PATIENT PRESENTS WITH AN IMPLANTABLE OR ATTACHED RETAIL BUYER: No RADIOLOGY DEPARTMENT: General X-ray: Exam(s) Completed: Abdomen X-Ray: Abdomen with Upright PERIPHERAL IV DATA: Not applicable SIGNED BY: Liliam Madden October 14, 2024 11:42 AM SD Observed: 10/14/2024 12:00 AM Status: COMPLETED Source: [facility] Telephone ([facility]) JOYCE ROBLES ([id number]) 1955 F Date Time Provider Department 10/14/24 JOHN ALBRIGHT During your visit today, we recorded the following information about you: Paz Parker 10/14/2024 8:22 AM Signed Patient called to speak with Jimmie. She states it is in regards from 10/12 conversation. Jimmie Crews RN 10/14/2024 9:18 AM Signed Care Coordination Triage Note Cancer Prim Situation: Patient reports Bowel symptoms Background: 1) MBC. 2) History of ovarian cancer. 3) Germline BRCA2 mutation. Called in with c/o constipation on 10/12/24. Patient stated she took the 1/2 bottle of magnesium citrate and had a BM. Patient is now taking Miralax BID and the Senna BID. Assessment: Constipation Symptoms: When was your last bowel movement? 10/12 Are you eating and drinking normally? Has not had anything to eat today, OJ this morning. Are you passing any gas? A little bit of gas Any fever, nausea or vomiting? Denies fever, chills, N/V. What have you taken to try to alleviate your constipation symptoms? Miralax and senna Does your stomach look swollen, feel hard to touch, or do you have pain in your stomach? "I feel really bloated". Semi-soft, Recommendations: Per RNCC, patient directed to: Manage at home. Instructions provided. Abdominal X-ray today. Jimmie Crews RN October 14, 2024 8:40 AM Jimmie Crews RN 10/14/2024 11:45 AM Signed Patient informed that Dianne ordered a KUB. VÍCTOR Magallon Paul A, DO 10/14/2024 3:29 PM Signed Recommend a trial of Linzess. DO Mars Bautista Amber, RN 10/14/2024 4:20 PM Signed Called and spoke to patient. Patient stated she is feeling very uncomfortable and full. Dr. Albright suggests that patient drink a bottle of mag citrate and then start linzess. Patient is going to try a Fleet's enema to see if she can get some instant relief. If no relief, she will try mag citrate. Patient also informed she can go to the ED if she is uncomfortable and we discussed s/s of when she should go. Patient stated understanding. VÍCTOR Magallon Amber, RN 10/15/2024 9:35 AM Signed [facility] Care Coordination FOLLOW-UP NOTE Patient identified by name and date of . YES Spoke to patient Summary: (Reason for follow-up) Patient used a Fleet's enema yesterday and had a BM. Patient stated she still doesn't feel "normal". Patient started Linzess; could take up to 1 week to notice improvement in symptoms. Patient instructed to continue OTC medications for the next week if needed. Patient verbalized when to seek Medical Attention and an understanding of after- hours phone number and process: Yes Care Coordination Plan: No further follow up needed at this time. Patient instructed to call our office or after hour number if she has any new/worsening symptoms. Jimmie Crews RN October 15, 2024 Allergies As of Date: 10/14/2024 Noted Allergy Reaction ZOFRAN (ONDANSETRON) 07/23/2024 14 - Other: See Comments Comments: Migraines. DEMERAL (MEPERIDINE) 04/01/2016 8 - GI Upset PERCOCET (OXYCODONE-ACETAMINOPHEN)04/01/2016 8 - GI Upset Date Reviewed: 10/08/2024 Reviewed by: John Albright DO - Fully Assessed Reason for Visit: Patient Question [0025] Primary Visit Diagnosis:Constipation, unspecified constipation type [K59.00] Other Visit Diagnosis:Abdominal bloating [R14.0] Order(s):XR ABDOMEN 2V ROUTINE SUPINE W UPRIGHT/DECUB/CTL [[id number]] Order #: [id number] FUTURE linaclotide (LINZESS) 145 mcg capsuleTake 1 capsule by mouth once daily. Take capsule on an empty stomach at least 30 minutes before a meal at the same time each day. Capsule should be swallowed whole. DO NOT chew or crushDisp: 30 capsuleRfl: 2 Prescriptions as of 10/15/2024 - linaclotide (LINZESS) 145 mcg capsule Take 1 capsule by mouth once daily. Take capsule on an empty stomach at least 30 minutes before a meal at the same time each day. Capsule should be swallowed whole. DO NOT chew or crush - LORazepam (ATIVAN) 0.5 mg Take 1-2 tablets by mouth three times a day as needed for up to 14 days. - OLANZapine (ZYPREXA) 5 mg tablet Take 1 tablet by mouth daily at bedtime. - OLANZapine (ZYPREXA) 10 mg tablet TAKE 1 TABLET BY MOUTH EVERYDAY AT BEDTIME - cinnamon bark (CINNAMON ORAL) Take 1 tablet by mouth once daily. - cholecalciferol (VITAMIN D-3) 400 unit tab Take 400 Units by mouth once daily. With K2 - LYSINE ORAL Take 1 tablet by mouth daily at 6 am. - apixaban (ELIQUIS) 5 mg tab(s) Take 1 tablet by mouth two times a day. - elacestrant (ORSERDU) 345 mg tablet Take 1 tablet (345 mg) by mouth once daily. with a meal. - calcium carbonate/vitamin D3 (CALCIUM + D ORAL) Take 1 tablet by mouth once daily. - ginkgo biloba (GINKOBA ORAL) Take 120 mg by mouth once daily. - MULTI-VITAMIN ORAL Take 1 tablet by mouth once daily. - GLUCOSAMINE SULFATE (GLUCOSAMINE ORAL) Take 1 tablet by mouth once daily. - TURMERIC ROOT EXTRACT ORAL Take 450 mg by mouth once daily. 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 Take capsule on an empty stomach at least 30 minutes before a meal at the same time each day. Capsule should be swallowed whole. DO NOT chew or crush Encounter Status:Closed by JIMMIE CREWS on 10/15/24 SD Observed: 10/12/2024 12:00 AM Status: COMPLETED Source: [facility] Telephone ([facility]) JOYCE ROBLES ([id number]) 1955 F Date Time Provider Department 10/12/24 JOHN ALBRIGHT During your visit today, we recorded the following information about you: Laura Holt 10/12/2024 1:03 PM Signed Patient is having constipation issues and requesting a return call from a nurse. Jimmie Crews RN 10/12/2024 2:20 PM Signed Care Coordination Triage Note Cancer Prim Situation: Patient reports Bowel symptoms Background: 1) MBC. 2) History of ovarian cancer. 3) Germline BRCA2 mutation. On Orserdu. Has issues with constipation but this has gotten worse after starting orserdu. Assessment: Constipation Symptoms: When was your last bowel movement? "I have some serious constipation issues". Friday night. What is your normal frequency of bowel movements every 1-2 days. Any blood in the stool or on the toilet tissue? No Are you eating and drinking normally? Yes, "I don't eat the fiber that I should". Patient is unsure of how much fluid intake she is drinking daily. 3-4 glasses of water. Are you taking any new medications or supplements? Orserdu Are you passing any gas? Yes Any fever, nausea or vomiting? Denies fever, chills, nausea, or vomiting. What have you taken to try to alleviate your constipation symptoms? Senna, metamucil, magnesium pills, stool softener, suppository, and 1/2 bottle of magnesium citrate. Miralax yesterday and this morning. Patient had a BM after 1/2 bottle of magnesium citrate. Does your stomach look swollen, feel hard to touch, or do you have pain in your stomach? Patient feels her belly looks swollen, belly is semi-soft "not rock hard", and has abdominal cramping. Recommendations: Per RNCC, patient directed to: Manage at home. Instructions provided. Spoke to Dr. Albright. Patient was advised to take 1/2 bottle magnesium citrate and then started miralex BID and senokot BID. Discussed how to taper down once she starts having regular BM's. Also discussed diet changes to help alleviate constipation. Jimmie Crews RN October 12, 2024 1:07 PM Allergies As of Date: 10/12/2024 Noted Allergy Reaction ZOFRAN (ONDANSETRON) 07/23/2024 14 - Other: See Comments Comments: Migraines. DEMERAL (MEPERIDINE) 04/01/2016 8 - GI Upset PERCOCET (OXYCODONE-ACETAMINOPHEN)04/01/2016 8 - GI Upset Date Reviewed: 10/08/2024 Reviewed by: John Albright DO - Fully Assessed Reason for Visit: Patient Question [5047] Prescriptions as of 10/12/2024 - LORazepam (ATIVAN) 0.5 mg Take 1-2 tablets by mouth three times a day as needed for up to 14 days. - OLANZapine (ZYPREXA) 5 mg tablet Take 1 tablet by mouth daily at bedtime. - OLANZapine (ZYPREXA) 10 mg tablet TAKE 1 TABLET BY MOUTH EVERYDAY AT BEDTIME - cinnamon bark (CINNAMON ORAL) Take 1 tablet by mouth once daily. - cholecalciferol (VITAMIN D-3) 400 unit tab Take 400 Units by mouth once daily. With K2 - LYSINE ORAL Take 1 tablet by mouth daily at 6 am. - apixaban (ELIQUIS) 5 mg tab(s) Take 1 tablet by mouth two times a day. - elacestrant (ORSERDU) 345 mg tablet Take 1 tablet (345 mg) by mouth once daily. with a meal. - calcium carbonate/vitamin D3 (CALCIUM + D ORAL) Take 1 tablet by mouth once daily. - ginkgo biloba (GINKOBA ORAL) Take 120 mg by mouth once daily. - MULTI-VITAMIN ORAL Take 1 tablet by mouth once daily. - GLUCOSAMINE SULFATE (GLUCOSAMINE ORAL) Take 1 tablet by mouth once daily. - TURMERIC ROOT EXTRACT ORAL Take 450 mg by mouth once daily. 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 *10/07/2024 Encounter Status:Closed by JIMMIE CREWS on 10/12/24 SD Observed: 10/09/2024 12:00 AM Status: COMPLETED Source: [facility] Telephone ([facility]) JOYCE ROBLES ([id number]) 1955 F Date Time Provider Department 10/09/24 LIZET AGUDELO [facility] During your visit today, we recorded the following information about you: Lizet Agudelo APRN.CNP 10/09/2024 9:56 AM Signed Scheduling Request - Established Patient Time Frame: Next available Provider: Lizet Agudelo APRN.CNP Visit type: No preference/First available Diagnosis: Brain mets Allergies As of Date: 10/09/2024 Noted Allergy Reaction ZOFRAN (ONDANSETRON) 07/23/2024 14 - Other: See Comments Comments: Migraines. DEMERAL (MEPERIDINE) 04/01/2016 8 - GI Upset PERCOCET (OXYCODONE-ACETAMINOPHEN)04/01/2016 8 - GI Upset Date Reviewed: 10/08/2024 Reviewed by: John Albright DO - Fully Assessed Reason for Visit: JESSICA, move up appt [Other] Primary Visit Diagnosis:Metastasis to brain (HCC) [C79.31] [C79.31] Prescriptions as of 10/09/2024 - LORazepam (ATIVAN) 0.5 mg Take 1-2 tablets by mouth three times a day as needed for up to 14 days. - OLANZapine (ZYPREXA) 5 mg tablet Take 1 tablet by mouth daily at bedtime. - OLANZapine (ZYPREXA) 10 mg tablet TAKE 1 TABLET BY MOUTH EVERYDAY AT BEDTIME - cinnamon bark (CINNAMON ORAL) Take 1 tablet by mouth once daily. - cholecalciferol (VITAMIN D-3) 400 unit tab Take 400 Units by mouth once daily. With K2 - LYSINE ORAL Take 1 tablet by mouth daily at 6 am. - apixaban (ELIQUIS) 5 mg tab(s) Take 1 tablet by mouth two times a day. - elacestrant (ORSERDU) 345 mg tablet Take 1 tablet (345 mg) by mouth once daily. with a meal. - calcium carbonate/vitamin D3 (CALCIUM + D ORAL) Take 1 tablet by mouth once daily. - ginkgo biloba (GINKOBA ORAL) Take 120 mg by mouth once daily. - MULTI-VITAMIN ORAL Take 1 tablet by mouth once daily. - GLUCOSAMINE SULFATE (GLUCOSAMINE ORAL) Take 1 tablet by mouth once daily. - TURMERIC ROOT EXTRACT ORAL Take 450 mg by mouth once daily. 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 Author Type: Physician Type: Progress Notes Filed: 10/08/2024 12:28 Note Text: Oncologic problem(s): 1) MBC. 2) History of ovarian cancer. 3) Germline BRCA2 mutation. HPI: The patient is a 69-year-old female with a past medical history as [...] 2016. The pathology demonstrated a 2.5 cm ER/IA positive, HER2 negative tumor in the left breast with micro metastasis in 1 of 3 sentinel lymph nodes (0.8 mm). Overall grade was 3. Lymphovascular invasion was present. Closest margin was 2 mm from anterior margin. ER was positive greater than 95%. IA positive greater than 95% with moderate to strong staining intensity. HER2 was equivocal 1-2+; nonamplified by FISH testing. She declined adjuvant chemotherapy but received adjuvant radiation. Was started on AI with anastrozole beginning 10/2016. Was found to have germline BRCA2 mutation. She had declined prophylactic mastectomy and had been undergoing screening for breast cancer. Recently presented to [facility] on 03/12/2024 with a complaint of increasing shortness of breath. Prior to that she had been on a 10-day trip to [place]. CTA of the chest same day demonstrated [...] on 03/22/2024. Most recent screening mammogram 01/2024. Lives in town. Son in [place]--helps with house and yard. Daughter in [place]. about 3 years ago. Prior therapy: 1) Anastrozole adjuvant setting--began 10/2016. 2) Letrozole. 3) Olaparib for metastatic disease--didn't tolerate. 4) Gemcitabine. C1D1 07/23/2024. Current therapy: 1) Elacestrant. Presents for ongoing oncologic management. Interim history: Had MRI brain today. Continues to tolerating elacestrant well. Occasional loose stools. No other side effects. Good appetite. Doesn't seem as confused. Still undergoing high volume right-sided thoracenteses. Had ultrasound of left on 09/30. Not enough fluid to drain. PAST MEDICAL HISTORY Diagnosis Date Breast cancer (HCC) Essential hypertension Hypoxemia Ovarian cancer (HCC) Pulmonary embolism (HCC) Osteoporosis. Had been on alendronate. PAST SURGICAL HISTORY Procedure Laterality Date BSO W/TIESHA AND OMENECTOMY FOR MALIGNANCY 07/14/2012 BX BREAST W/DEVICE 1ST LESION ULTRASOUND GUID Left 04/04/2016 U/S Bx outer mid left breast BX/EXC LYMPH NODE OPEN DEEP AXILLARY NODE Left 04/29/2016 HYSTERECTOMY HX 2009 LX PARTIAL COLECTOMY 07/14/2012 MASTECTOMY, PARTIAL Left 04/29/2016 PAST SURGICAL HISTORY OF Left ablation of vein of left leg for venous reflux LORazepam (ATIVAN) 0.5 mg Take 1-2 tablets by mouth three times a day as needed. cinnamon bark (CINNAMON ORAL) Take 1 tablet by mouth once daily. cholecalciferol (VITAMIN D-3) 400 unit tab Take 400 Units by mouth once daily. With K2 LYSINE ORAL Take 1 tablet by mouth daily at 6 am. OLANZapine (ZYPREXA) 10 mg tablet Take 1 tablet by mouth daily at bedtime. apixaban (ELIQUIS) 5 mg tab(s) Take 1 tablet by mouth two times a day. elacestrant (ORSERDU) 345 mg tablet Take 1 tablet (345 mg) by mouth once daily. with a meal. calcium carbonate/vitamin D3 (CALCIUM + D ORAL) Take 1 tablet by mouth once daily. ginkgo biloba (GINKOBA ORAL) Take 120 mg by mouth once daily. MULTI-VITAMIN ORAL Take 1 tablet by mouth once daily. GLUCOSAMINE SULFATE (GLUCOSAMINE ORAL) Take 1 tablet by mouth once daily. TURMERIC ROOT EXTRACT ORAL Take 450 mg by mouth once daily. prochlorperazine (COMPAZINE) 10 mg tablet Take 1 tablet by mouth every 6 hours as needed (For chemotherapy induced nausea and vomiting). ALLERGIES Allergen Reactions Zofran [Ondansetron] Other: See Comments Migraines. Demeral [Meperidine] GI Upset Percocet [Oxycodone* GI Upset Social History Tobacco Use Smoking status: Never Smokeless tobacco: Never Vaping Use Vaping status: Never Used Substance Use Topics Alcohol use: Not Currently Comment: occ Drug use: Never FAMILY HISTORY Problem Relation Age of Onset Hypertension Mother other (pulmonary embolism) Mother Stroke Father Heart Brother Heart Attack Brother Colon Cancer Maternal Grandmother Heart Maternal Grandfather Prostate Cancer Paternal Grandfather Breast Cancer Maternal Aunt Cancer Maternal Aunt liver Ovarian cancer Maternal cousin Breast Cancer Paternal Aunt Breast Cancer Paternal cousin Breast Cancer Paternal cousin REVIEW OF SYSTEMS: Negative other than HPI. PHYSICAL EXAM: Vitals: Blood pressure 107/73, pulse 108, temperature 36.8 ?C (98.3 ?F), temperature source Temporal, weight 70.1 kg (154 lb 8 oz), SpO2 96%. Well-appearing and in no acute distress. EYES: Sclerae are anicteric bilaterally. LYMPHATIC: There is no palpable adenopathy. CARDIOVASCULAR: Rhythm is regular. ABDOMEN: The abdomen is nondistended. Extremities: No swelling or edema. SKIN: No jaundice. Somewhat depressed affect. IMAGING: PET WCH: PET scan demonstrated skeletal metastases including right iliac wing, left acetabulum, left sacral parris in the region of the fifth thoracic vertebra. There was also increased tracer concentration in the left hemithorax at the pleural interface fulfilling quantitative criteria for viable neoplasm. MRI brain WCH: Small focal enhancing nodule measuring 4 mm along the posterior lateral aspect of the right occipital lobe with minimal surrounding edema. Genetic testing: BRCA2 mutation. 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 Elacestrant. -PIK3CA mutation. Alpelisib plus fulvestrant or capivaertib plus fulvestrant -BRCA2 mutation. -TP53 mutation (0.2%). HER2 1-2+ on original surgical specimen 03/2016. 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 Assessment: -Metastatic recurrence of pT2b N1 WI (SN) ER/IA positive, HER2 negative invasive ductal carcinoma of the left breast. -Right-sided malignant pleural effusion. -History of ovarian cancer. -Tolerating elacestrant well. -Reviewed MRI brain results. -She does not want a Pleurx catheter. Discussed this with Tanya the plant technician at [facility]. -Recent cytology on right-sided fluid showed atypical cells. -If evidence of disease progression, Enhertu based on HER2 1-2+ on original pathology since repeat biopsy not feasible and pleural fluid unlikely to yield enough cells for HER2 repeat testing. Plan: -Continue elacestrant. -Repeat MRI brain in about 3 months. -Continue biweekly thoracentesis for now. -Begin Zometa every 3 months. -Continue olanzapine 5 mg at HS. (I27.82) Other chronic pulmonary embolism without acute cor pulmonale (HCC) Assessment: -Tolerating apixaban well. Plan: -Continue apixaban. Portions of this documentation were copied and pasted from my previous office visit note dated 09/28/2024 in order to provide a cohesive continuity of the history. The note has been reviewed and edited and updated as necessary. I spent a total of 30 minutes on the date of the service which included preparing to see the patient, [id number] patient care, completing clinical documentation, obtaining and/or reviewing separately obtained history, performing a medically appropriate examination, counseling and educating the patient/family/caregiver, communicating with other HCPs (not separately reported), and communicating results to the patient/family/caregiver. John Albright DO CNOVSP Observed: 10/07/2024 11:30 AM Status: COMPLETED Source: [facility] Visit (SP) Office ([place]) JOYCE ROBLES ([id number]) 1955 F Date Time Provider Department 10/07/24 11:30 AM JOHN ALBRIGHT During your visit today, we recorded the following information about you: Temperature Pulse Blood pressure Weight 98.3 degrees 108/minute 107/73 70.1 kg John Albright DO 10/08/2024 12:28 PM Signed Oncologic problem(s): 1) MBC. 2) History of ovarian cancer. 3) Germline BRCA2 mutation. HPI: The patient is a 69-year-old female with a past medical history as [...] 2016. The pathology demonstrated a 2.5 cm ER/IA positive, HER2 negative tumor in the left breast with micro metastasis in 1 of 3 sentinel lymph nodes (0.8 mm). Overall grade was 3. Lymphovascular invasion was present. Closest margin was 2 mm from anterior margin. ER was positive greater than 95%. IA positive greater than 95% with moderate to strong staining intensity. HER2 was equivocal 1-2+; nonamplified by FISH testing. She declined adjuvant chemotherapy but received adjuvant radiation. Was started on AI with anastrozole beginning 10/2016. Was found to have germline BRCA2 mutation. She had declined prophylactic mastectomy and had been undergoing screening for breast cancer. Recently presented to [facility] on 03/12/2024 with a complaint of increasing shortness of breath. Prior to that she had been on a 10-day trip to [place]. CTA of the chest same day demonstrated [...] on 03/22/2024. Most recent screening mammogram 01/2024. [facility]. Son in [place]--helps with house and yard. Daughter in [place]. about 3 years ago. Prior therapy: 1) Anastrozole adjuvant setting--began 10/2016. 2) Letrozole. 3) Olaparib for metastatic disease--didn't tolerate. 4) Gemcitabine. C1D1 07/23/2024. Current therapy: 1) Elacestrant. Presents for ongoing oncologic management. Interim history: Had MRI brain today. Continues to tolerating elacestrant well. Occasional loose stools. No other side effects. Good appetite. Doesn't seem as confused. Still undergoing high volume right-sided thoracenteses. Had ultrasound of left on 09/30. Not enough fluid to drain. PAST MEDICAL HISTORY Diagnosis Date Breast cancer (HCC) Essential hypertension Hypoxemia Ovarian cancer (HCC) Pulmonary embolism (HCC) Osteoporosis. Had been on alendronate. PAST SURGICAL HISTORY Procedure Laterality Date BSO W/TIESHA AND OMENECTOMY FOR MALIGNANCY 07/14/2012 BX BREAST W/DEVICE 1ST LESION ULTRASOUND GUID Left 04/04/2016 U/S Bx outer mid left breast BX/EXC LYMPH NODE OPEN DEEP AXILLARY NODE Left 04/29/2016 HYSTERECTOMY HX 2009 LX PARTIAL COLECTOMY 07/14/2012 MASTECTOMY, PARTIAL Left 04/29/2016 PAST SURGICAL HISTORY OF Left ablation of vein of left leg for venous reflux LORazepam (ATIVAN) 0.5 mg Take 1-2 tablets by mouth three times a day as needed. cinnamon bark (CINNAMON ORAL) Take 1 tablet by mouth once daily. cholecalciferol (VITAMIN D-3) 400 unit tab Take 400 Units by mouth once daily. With K2 LYSINE ORAL Take 1 tablet by mouth daily at 6 am. OLANZapine (ZYPREXA) 10 mg tablet Take 1 tablet by mouth daily at bedtime. apixaban (ELIQUIS) 5 mg tab(s) Take 1 tablet by mouth two times a day. elacestrant (ORSERDU) 345 mg tablet Take 1 tablet (345 mg) by mouth once daily. with a meal. calcium carbonate/vitamin D3 (CALCIUM + D ORAL) Take 1 tablet by mouth once daily. ginkgo biloba (GINKOBA ORAL) Take 120 mg by mouth once daily. MULTI-VITAMIN ORAL Take 1 tablet by mouth once daily. GLUCOSAMINE SULFATE (GLUCOSAMINE ORAL) Take 1 tablet by mouth once daily. TURMERIC ROOT EXTRACT ORAL Take 450 mg by mouth once daily. prochlorperazine (COMPAZINE) 10 mg tablet Take 1 tablet by mouth every 6 hours as needed (For chemotherapy induced nausea and vomiting). ALLERGIES Allergen Reactions Zofran [Ondansetron] Other: See Comments Migraines. Demeral [Meperidine] GI Upset Percocet [Oxycodone* GI Upset Social History Tobacco Use Smoking status: Never Smokeless tobacco: Never Vaping Use Vaping status: Never Used Substance Use Topics Alcohol use: Not Currently Comment: occ Drug use: Never FAMILY HISTORY Problem Relation Age of Onset Hypertension Mother other (pulmonary embolism) Mother Stroke Father Heart Brother Heart Attack Brother Colon Cancer Maternal Grandmother Heart Maternal Grandfather Prostate Cancer Paternal Grandfather Breast Cancer Maternal Aunt Cancer Maternal Aunt liver Ovarian cancer Maternal cousin Breast Cancer Paternal Aunt Breast Cancer Paternal cousin Breast Cancer Paternal cousin REVIEW OF SYSTEMS: Negative other than HPI. PHYSICAL EXAM: Vitals: Blood pressure 107/73, pulse 108, temperature 36.8 ?C (98.3 ?F), temperature source Temporal, weight 70.1 kg (154 lb 8 oz), SpO2 96%. Well-appearing and in no acute distress. EYES: Sclerae are anicteric bilaterally. LYMPHATIC: There is no palpable adenopathy. CARDIOVASCULAR: Rhythm is regular. ABDOMEN: The abdomen is nondistended. Extremities: No swelling or edema. SKIN: No jaundice. Somewhat depressed affect. IMAGING: PET WCH: PET scan demonstrated skeletal metastases including right iliac wing, left acetabulum, left sacral parris in the region of the fifth thoracic vertebra. There was also increased tracer concentration in the left hemithorax at the pleural interface fulfilling quantitative criteria for viable neoplasm. MRI brain WCH: Small focal enhancing nodule measuring 4 mm along the posterior lateral aspect of the right occipital lobe with minimal surrounding edema. Genetic testing: BRCA2 mutation. 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 Elacestrant. -PIK3CA mutation. Alpelisib plus fulvestrant or capivaertib plus fulvestrant -BRCA2 mutation. -TP53 mutation (0.2%). HER2 1-2+ on original surgical specimen 03/2016. 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 Assessment: -Metastatic recurrence of pT2b N1 WI (SN) ER/IA positive, HER2 negative invasive ductal carcinoma of the left breast. -Right-sided malignant pleural effusion. -History of ovarian cancer. -Tolerating elacestrant well. -Reviewed MRI brain results. -She does not want a Pleurx catheter. Discussed this with Tanya the plant technician at [facility]. -Recent cytology on right-sided fluid showed atypical cells. -If evidence of disease progression, Enhertu based on HER2 1-2+ on original pathology since repeat biopsy not feasible and pleural fluid unlikely to yield enough cells for HER2 repeat testing. Plan: -Continue elacestrant. -Repeat MRI brain in about 3 months. -Continue biweekly thoracentesis for now. -Begin Zometa every 3 months. -Continue olanzapine 5 mg at HS. (I27.82) Other chronic pulmonary embolism without acute cor pulmonale (HCC) Assessment: -Tolerating apixaban well. Plan: -Continue apixaban. Portions of this documentation were copied and pasted from my previous office visit note dated 09/28/2024 in order to provide a cohesive continuity of the history. The note has been reviewed and edited and updated as necessary. I spent a total of 30 minutes on the date of the service which included preparing to see the patient, [id number] patient care, completing clinical documentation, obtaining and/or reviewing separately obtained history, performing a medically appropriate examination, counseling and educating the patient/family/caregiver, communicating with other HCPs (not separately reported), and communicating results to the patient/family/caregiver. John Albright DO Referring Provider: JOHN ALBRIGHT [[id number]] Allergies As of Date: 10/07/2024 Noted Allergy Reaction ZOFRAN (ONDANSETRON) 07/23/2024 14 - Other: See Comments Comments: Migraines. 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 - cinnamon bark (CINNAMON ORAL) Take 1 tablet by mouth once daily. - cholecalciferol (VITAMIN D-3) 400 unit tab Take 400 Units by mouth once daily. With K2 - LYSINE ORAL Take 1 tablet by mouth daily at 6 am. - apixaban (ELIQUIS) 5 mg tab(s) Take 1 tablet by mouth two times a day. - elacestrant (ORSERDU) 345 mg tablet Take 1 tablet (345 mg) by mouth once daily. with a meal. - calcium carbonate/vitamin D3 (CALCIUM + D ORAL) Take 1 tablet by mouth once daily. - ginkgo biloba (GINKOBA ORAL) Take 120 mg by mouth once daily. - MULTI-VITAMIN ORAL Take 1 tablet by mouth once daily. - GLUCOSAMINE SULFATE (GLUCOSAMINE ORAL) Take 1 tablet by mouth once daily. - TURMERIC ROOT EXTRACT ORAL Take 450 mg by mouth once daily. Medication notes this encounter OLANZAPINE 10 MG TABLET >> Keith Boland MA 10/07/2024 11:35 AM >> KEITH BOLAND [facility] Oct 07, 2024 11:35 AM Pt, states she cuts pill in half for 5mg tablets. Problem List As Of Date 10/07/2024 Noted Resolved Abnormal mammogram [R92.8] 04/01/2016 Malignant neoplasm of upper-outer quadrant of l*04/08/2016 Fat necrosis [M79.89] 01/06/2017 BRCA2 gene mutation positive [Z15.01, Z15.09] 04/07/2024 History of ovarian cancer [Z85.43] 04/07/2024 Pulmonary embolus (HCC) [I26.99] 04/07/2024 Carcinoma of left breast metastatic to bone (HC*05/04/2024 Malignant pleural effusion [J91.0] 05/04/2024 Malignant neoplasm metastatic to brain (HCC) [C*06/07/2024 Dehydration [E86.0] 08/11/2024 Carcinoma of right breast metastatic to pleura *10/07/2024 Encounter Status:Closed by JOHN ALBRIGHT on 10/08/24 CANCER AG15-3 SERPL-ACNC Collected: 10:40 AM Status: F Source: [facility] Order Comment: Specimen Type : BLOOD SPECIMEN Ordering Facility: [facility] Address: [address] [place] [address] TYPE CODE TESTS RESULT OUT OF RANGE REFERENCE UNITS LAB 6875-9([facility]) Cancer Ag15-3 SerPl-aCnc 881.3 High <26.0 U/mL Result Comment: The CA 15-3 test methodology used is the Electrochemiluminescence Immunoassay by [employer]. Results obtained with different methods or kits cannot be used interchangeably. [facility] will discontinue CA 27.29 testing effective 11/30/2024, with CA 15-3 as its replacement. In preparation for the discontinuation, CA 15-3 testing in parallel was conducted with CA 27.29 to establish a new baseline. Performed By: #### [id number] ## ## [facility] CLIA [id number] [address] [place] [address] [place] CBC W AUTO DIFF BLD Collected: 10/07/2024 10:40 AM S tatus: F Source: [facility] Order Comment: Specimen Type : BLOOD SPECIMEN Ordering Facility: [facility] Address: [address] [place] [id number] TYPE CODE TESTS RESULT OUT OF RANGE REFERENCE UNITS LAB 6690-2(LOINC) WBC # Bld Auto 9.42 3.70-11.00 k/uL LAB 789-8([facility]) RBC # Bld Auto 3.96 3.90-5.20 m/ uL LAB 718-7([facility]) Hgb Bld-mCnc 13.5 11.5-15.5 g/dL LAB 4544-3([facility]) Hct VFr Bld Auto 42.3 36.0-46.0 % LAB 787-2([facility]) MCV RBC Auto 106.8 High 80.0-100.0 fL LAB 785-6([facility]) MCH RBC Qn Auto 34.1 High 26.0-34.0 p g LAB 786-4([facility]) MCHC RBC Auto-mCnc 31.9 30.5-36.0 g/dL LAB 41705-6([facility]) RDW RBC-Rto 12.7 11.5-15.0 % LAB 777-3([facility]) Platelet # Bld Auto 286 150-400 k/uL LAB 56113-1([facility]) PMV Bld Auto 9.7 9.0-12.7 fL LAB 770-8([facility]) Neutrophils/leuk NFr Bld Auto 85.8 % LAB 751-8([facility]) Neutrophils # Bld Auto 8.08 High 1.45-7.50 k/uL LAB 736-9([facility]) Lymphocytes/leuk NFr Bld Auto 8.0 % LAB 731-0([facility]) Lymphocytes # Bld Auto 0.75 Low 1.00-4.00 k/uL LAB 5905-5([facility]) Monocytes/leuk NFr Bld Auto 5.2 % LAB 742-7([facility]) Monocytes # Bld Auto 0.49 <0.87 k/uL LAB 713-8([facility]) Eosinophil/leuk NFr Bld Auto 0.4 % LAB 711-2([facility]) Eosinophil # Bld Auto 0.04 <0.46 k/uL LAB 706-2([facility]) Basophils/leuk NFr Bld Auto 0.4 % LAB 704-7([facility]) Basophils # Bld Auto 0.04 <0.11 k/uL LAB 54511-2([facility]) Imm Granulocytes/jose k NFr Bld Auto 0.2 % LAB 85757-4(LOINC) Imm Granulocytes # Bld Auto <0.03 <0.10 k/uL LAB 79804-6(LOINC) nRBC/100 WBC Bld-Rto 0.0 /100 WBC LAB 771-6(LOINC) nRBC # Bld Auto <0.01 <0.01 k/u L LAB 09761-3(LOINC) Differential method Bld Auto Performed By: #### [id number] # ### [facility] CLIA [id number] [address] [place] CA 27.29 Collected: 10:40 AM Status: F Source: [facility] Order Comment: Specimen Type : BLOOD SPECIMEN Ordering Facility: [facility] Address: [address] [place] [address] TYPE CODE TESTS RESULT OUT OF RANGE REFERENCE UNITS LAB 72305-8([facility]) Cancer Ag27-29 SerPl-aCnc 1695.7 High <38.6 U/mL Result Comment: The CA27.29 test was performed using the Siemens Sonicsaur XP chemiluminometric immunoassay method. Results obtained with different assay methods or kits cannot be used interchangeably. [facility] will discontinue CA 27.29 testing effective 11/30/2024, with CA 15-3 as its replacement. In preparation for the discontinuation, CA 15-3 testing in parallel was conducted with CA 27.29 to establish a new baseline. Performed By: #### [id number] # ### [facility] CLIA [id number] [address] [place] [address] [place] COMP METAB 2000 PNL SERPL Collected: 10:40 AM Status: F Source: [facility] Order Comment: Specimen Type : BLOOD SPECIMEN Ordering Facility: [facility] Address: [address] [place] [address] TYPE CODE TESTS RESULT OUT OF RANGE REFERENCE UNITS LAB 2885-2(LOINC) Prot SerPl-mCnc 5.8 Low 6.3-8.0 g/dL LAB 1751-7(LOINC) Albumin SerPl-mCnc 3.1 Low 3.9-4.9 g/dL LAB 21689-5(LOINC) Calcium SerPl-mCnc 9.6 8.5-10.2 mg/dL LAB 1975-2(LOINC) Bilirub SerPl-mCnc 0.3 0.2-1.3 mg/dL LAB 6768-6(LOINC) ALP SerPl-cCnc 108 34-123 U/L LAB 1920-8(LOINC) AST SerPl-cCnc 25 13-35 U/L LAB 1742-6(LOINC) ALT SerPl-cCnc 14 7-38 U/L LAB 2345-7(LOINC) Glucose SerPl-mCnc 103 High 74-99 mg/dL Result Comment: The [place] Diabetes Association (ADA) provides guidance for cutoff values for fasting glucose and random glucose. The ADA defines fasting as no caloric intake for at least 8 hours. Fasting plasma glucose results between 100 to 125 mg/dL indicate increased risk for diabetes (prediabetes). Fasting plasma glucose results greater than or equal to 126 mg/dL meet the criteria for diagnosis of diabetes. In the absence of unequivocal hyperglycemia, results should be confirmed by repeat testing. In a patient with classic symptoms of hyperglycemia or hyperglycemic crisis, random plasma glucose results greater than or equal to 200 mg/dL meet the criteria for diagnosis of diabetes. Reference: Standards of Medical Care in Diabetes 2016, [place] Diabetes Association. Diabetes Care. 2016.39(Suppl 1). LAB 3094-0(LOINC) BUN SerPl-mCnc 15 7-21 mg/ dL LAB 2160-0(LOINC) Creat SerPl-mCnc 0.77 0.58-0.96 mg/dL LAB 2951-2(LOINC) Sodium SerPl-sCnc 138 136-144 mmol/L LAB 2823-3(LOINC) Potassium SerPl-sCnc 4.2 3.7-5.1 mmol/L LAB 2075-0(LOINC) Chloride SerPl-sCnc 106 98-107 mmol/L LAB 8-9(LOINC) CO2 SerPl-sCnc 25 22-30 mmo l/L LAB 87944-5(LOINC) Anion Gap SerPl-sCnc 7 Low 8-15 mmol/L LAB 40656-8(LOINC) Creatinine + eGFR Pnl SerPlBld 83 >=60 mL/min/1 .73m??? Result Comment: Estimated Gl omerular Filtration Rate (eGFR) is calculated using the 2020 CKD-EPI creatinine equation. This equation utilizes serum creatinine, sex, and age as parameters. The creatinine assay has traceable calibration to isotope dilution-mass spectrometry. Refer to KDIGO guidelines for clinical interpretation. In patients with unstable renal function, e.g. those with acute kidney injury, the eGFR may not accurately reflect actual GFR. Performed By: #### [id number] # ### [facility] CLIA [id number] [address] MRI BRAIN WO/W IVCON Observed: 10:10 AM Status: F Source: [facility] * * *Final Report* * * DATE OF EXAM: Oct 07 2024 10:10AM [facility] 0295 - MRI BRAIN WO/W IVCON / PROCEDURE REASON: multiple diagnoses * * * * Physician Interpretation * * * * MRI BRAIN WO/W IVCON HISTORY: Altered mental status, unspecified altered mental status type. Secondary malignant neoplasm of brain (HCC) TECHNIQUE: Routine brain MRI protocol without and with contrast including diffusion images. MQ: [id number] Contrast: 7 mL Elucirem IV COMPARISON: None. RESULT: Acute Change: There is no evidence of restricted diffusion to suggest an acute infarct. Hemorrhage: No evidence of prior parenchymal hemorrhage on the susceptibility weighted images. Mass Lesion/ Mass Effect: No evidence of an intracranial mass or extra-axial fluid collection. No abnormal parenchymal or leptomeningeal enhancement is noted following contrast administration. No significant mass effect. Chronic Change: The white matter is within normal limits of signal intensity for age. Parenchyma: There is mild generalized parenchymal volume loss. Ventricles: Ventriculomegaly corresponds to the degree of parenchymal volume loss. Skull Base: Hypothalamic and pituitary region are grossly normal. Craniocervical junction is normal. No significant marrow replacement process. Vasculature: Major intracranial arterial structures, and dural venous sinuses show typical flow void, suggesting patency by spin echo criteria. Other: The visualized paranasal sinuses and mastoid air cells are clear. The orbits and extracranial soft tissues are unremarkable. IMPRESSION: No evidence of an acute intracranial process. No enhancing intracranial lesion to suggest metastasis. Drafter: KEVIN Transcribe Date/Time: Oct 07 2024 10:28A Dictated by : LITA SCALES MD This examination was interpreted and the report reviewed and electronically signed by: LITA SCALES MD on Oct 07 2024 10:43AM EST [id number] PROGRESS Observed: 10/07/2024 9:30 AM Status: COMPLETED [id number] Author: CORRY MORGAN RT(R) Service: ? Author Type: Technologist Type: Progress Notes Filed: 10/07/2024 09:50 Note Text: Radiology Service Progress Note DATE OF SERVICE: October 07, 2024 TIME: 9:47 AM PATIENT IDENTITY VERIFICATION COMPLETED USING TWO (2) STANDARD IDENTIFIERS: Name and Date of confirmed by patient verbally. FALL SCREENING: Has the patient had 2 falls in the last year or 1 fall with injury or currently using an Ambulatory Assistive Device (Walker, Cane, Wheelchair, Crutches, etc.)? No PATIENT GENDER DATA: Assigned male at PATIENT RELEVANT IMPLANT DATA REVIEWED: Yes PATIENT PRESENTS WITH AN IMPLANTABLE OR ATTACHED RETAIL BUYER: No ALLERGIES: Reviewed and unchanged CONTRAST ALLERGY: NO. EXAM: MRI - CONTRAST TYPE: GROUP II PERIPHERAL IV DATA: Ambulatory: A peripheral IV was started in the Right hand with a Angio cath: 24 gauge. RADIOLOGY DEPARTMENT: MR; Exam(s) Completed: Head: Routine Brain SIGNATURE: Caryn RT Anastasia(R) PATIENT NAME: Joyce Robles DATE: October 07, 2024 TIME: 9:47 AM SURG PATH REQUEST Collected: 10/04/2024 3:08 PM Stat us: F Source: [facility] TYPE CODE TESTS RESULT OUT OF RANGE REFERENCE UNITS LAB [id number] Case Report Result Comment: Surgical Pat hology Report Case: [id number] Authorizing Provider: Barbara Richmond MD Collected: 10/04/2024 03:08 PM Ordering Location[facility] Received: 10/04/2024 03:08 PM [place] Pathologist: Denton Al MD, PhD Specimen: SURG PATH, Taco block C24-414; Thoracentesis fluid; Molecular testing LAB [id number] Clinical History Received is a request from Dr. Barbara Richmond at [facility] for FISH testing on block C24-414. LAB [id number] Pathologic Diagnosis Result Comment: Outside Slid es C24-414 (03/14/24) A. Thoracentesis fluid for cytology: HER2 FISH: Negative (see FISH report for details) at 2131 EDT LAB [id number] Microscopic Description Result Comment: Tissue was a ssessed by a molecular pathologist to select areas for analysis and to correlate immunostaining with histology. No morphologic assessment was requested. LAB [id number] Gross Description Result Comment: The followin g material(s) are received from [facility], [address] [place] [address] with an identifying Cytology Report: 1 H&E and 2 unstained (CB1) slides labeled C24-414 for HER2 FISH testing. Outside materials are returned in 60 days under separate cover with our number recorded on them. Grosser for this case was: Desi Caballero LAB Professional Interpretation Performed at: Professional Interpretation Performed at: Result Comment: [facility] For Immediate Release to Patient's MyChart? Yes [address] [facility] [address] [place], [place] [address] Performed By: #### SURGP ### # [facility] (DEFAULT) [address] [address] CNOVSP Observed: 09/28/2024 4:00 PM Status: COMPLETED Source: [facility] Visit (SP) Office ([place]EL[place]) JOYCE ROBLES ([id number]) 1955 F Date Time Provider Department 09/28/24 4:00 PM JOHN ALBRIGHT During your visit today, we recorded the following information about you: Temperature Pulse Blood pressure Weight 98.8 degrees 107/minute 116/76 71.4 kg John Albright DO 09/28/2024 4:49 PM Signed Oncologic problem(s): 1) MBC. 2) History of ovarian cancer. 3) Germline BRCA2 mutation. HPI: The patient is a 69-year-old female with a past medical history as [...] 2016. The pathology demonstrated a 2.5 cm ER/IA positive, HER2 negative tumor in the left breast with micro metastasis in 1 of 3 sentinel lymph nodes (0.8 mm). Overall grade was 3. Lymphovascular invasion was present. Closest margin was 2 mm from anterior margin. ER was positive greater than 95%. IA positive greater than 95% with moderate to strong staining intensity. HER2 was equivocal 1-2+; nonamplified by FISH testing. She declined adjuvant chemotherapy but received adjuvant radiation. Was started on AI with anastrozole beginning 10/2016. Was found to have germline BRCA2 mutation. She had declined prophylactic mastectomy and had been undergoing screening for breast cancer. Recently presented to [facility] on 03/12/2024 with a complaint of increasing shortness of breath. Prior to that she had been on a 10-day trip to [place]. CTA of the chest same day demonstrated [...] on 03/22/2024. Most recent screening mammogram 01/2024. Lives in town. Son in [place]--helps with house and yard. Daughter in [place]. about 3 years ago. Prior therapy: 1) Anastrozole adjuvant setting--began 10/2016. 2) Letrozole. 3) Olaparib for metastatic disease--didn't tolerate. 4) Gemcitabine. C1D1 07/23/2024. Current therapy: 1) Elacestrant. Presents for ongoing oncologic management. Interim history: Tolerating elacestrant very well. Occasional loose stools. No other side effects. She was seen today urgently. Radiology contacted the office earlier this morning. She had some bloody return on pleural fluid today. They also appreciated a larger left-sided pleural effusion. She has not been holding apixaban for the thoracenteses. The radiology personnel also expressed their concern that she seemed more confused and not understanding her diagnosis. Today she appears to be actually a little more animated. She is here with her friend. She has been smiling a bit more today. She was concerned about the bloody pleural effusion. Breathing is better afterwards. PAST MEDICAL HISTORY Diagnosis Date Breast cancer (HCC) Essential hypertension Hypoxemia Ovarian cancer (HCC) Pulmonary embolism (HCC) Osteoporosis. Had been on alendronate. PAST SURGICAL HISTORY Procedure Laterality Date BSO W/TIESHA AND OMENECTOMY FOR MALIGNANCY 07/14/2012 BX BREAST W/DEVICE 1ST LESION ULTRASOUND GUID Left 04/04/2016 U/S Bx outer mid left breast BX/EXC LYMPH NODE OPEN DEEP AXILLARY NODE Left 04/29/2016 HYSTERECTOMY HX 2009 LX PARTIAL COLECTOMY 07/14/2012 MASTECTOMY, PARTIAL Left 04/29/2016 PAST SURGICAL HISTORY OF Left ablation of vein of left leg for venous reflux cinnamon bark (CINNAMON ORAL) Take 1 tablet by mouth once daily. cholecalciferol (VITAMIN D-3) 400 unit tab Take 400 Units by mouth once daily. With K2 LYSINE ORAL Take 1 tablet by mouth daily at 6 am. OLANZapine (ZYPREXA) 10 mg tablet Take 1 tablet by mouth daily at bedtime. sertraline (ZOLOFT) 25 mg tablet Take 1 tablet by mouth once daily. (Patient not taking: Reported on 09/15/2024) apixaban (ELIQUIS) 5 mg tab(s) Take 1 tablet by mouth two times a day. elacestrant (ORSERDU) 345 mg tablet Take 1 tablet (345 mg) by mouth once daily. with a meal. (Patient not taking: Reported on 09/15/2024) prochlorperazine (COMPAZINE) 10 mg tablet Take 1 tablet by mouth every 6 hours as needed (For chemotherapy induced nausea and vomiting). (Patient not taking: Reported on 09/15/2024) calcium carbonate/vitamin D3 (CALCIUM + D ORAL) Take 1 tablet by mouth once daily. ginkgo biloba (GINKOBA ORAL) Take 120 mg by mouth once daily. MULTI-VITAMIN ORAL Take 1 tablet by mouth once daily. GLUCOSAMINE SULFATE (GLUCOSAMINE ORAL) Take 1 tablet by mouth once daily. TURMERIC ROOT EXTRACT ORAL Take 450 mg by mouth once daily. (Patient not taking: Reported on 09/15/2024) ALLERGIES Allergen Reactions Zofran [Ondansetron] Other: See Comments Migraines. Demeral [Meperidine] GI Upset Percocet [Oxycodone* GI Upset Social History Tobacco Use Smoking status: Never Smokeless tobacco: Never Vaping Use Vaping status: Never Used Substance Use Topics Alcohol use: Not Currently Comment: occ Drug use: Never FAMILY HISTORY Problem Relation Age of Onset Hypertension Mother other (pulmonary embolism) Mother Stroke Father Heart Brother Heart Attack Brother Colon Cancer Maternal Grandmother Heart Maternal Grandfather Prostate Cancer Paternal Grandfather Breast Cancer Maternal Aunt Cancer Maternal Aunt liver Ovarian cancer Maternal cousin Breast Cancer Paternal Aunt Breast Cancer Paternal cousin Breast Cancer Paternal cousin REVIEW OF SYSTEMS: Negative other than HPI. PHYSICAL EXAM: Vitals: Blood pressure 116/76, pulse 107, temperature 37.1 ?C (98.8 ?F), temperature source Temporal, weight 71.4 kg (157 lb 8 oz), SpO2 93%. Well-appearing and in no acute distress. EYES: Sclerae are anicteric bilaterally. LYMPHATIC: There is no palpable adenopathy. CARDIOVASCULAR: Rhythm is regular. ABDOMEN: The abdomen is nondistended. Extremities: No swelling or edema. SKIN: No jaundice. Somewhat depressed affect. IMAGING: PET [facility]: PET scan demonstrated skeletal metastases including right iliac wing, left acetabulum, left sacral parris in the region of the fifth thoracic vertebra. There was also increased tracer concentration in the left hemithorax at the pleural interface fulfilling quantitative criteria for viable neoplasm. MRI brain [facility]: Small focal enhancing nodule measuring 4 mm along the posterior lateral aspect of the right occipital lobe with minimal surrounding edema. Genetic testing: BRCA2 mutation. 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 Elacestrant. -PIK3CA mutation. Alpelisib plus fulvestrant or capivaertib plus fulvestrant -BRCA2 mutation. -TP53 mutation (0.2%). HER2 1-2+ on original surgical specimen 03/2016. 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 Assessment: -Metastatic recurrence of pT2b N1 WI (SN) ER/IA positive, HER2 negative invasive ductal carcinoma of the left breast. -Right-sided malignant pleural effusion. -History of ovarian cancer. -Tolerating elacestrant well. -I explained that it could take several weeks to know if it is going to slow progression of her disease. -Discussed that we will submit for HER2 testing via [facility] pathology department. If she is a candidate then we would consider Enhertu. -Regarding her depressed affect, recommended MRI brain. She received gemcitabine and is at risk for PRES. -Her friend accompanied her to today's visit and her son was available via speaker phone. Plan: -Continue elacestrant. -MRI brain STAT. -Continue biweekly thoracentesis for now. -Will need to discuss bone health issues at next office visit. She gets easily overwhelmed when we discussed too many recommendations at once. -Continue olanzapine 5 mg at HS. -Will obtain cytology on left pleural effusion sample from tomorrow. HER2 IHC if feasible. (I27.82) Other chronic pulmonary embolism without acute cor pulmonale (HCC) Assessment: -Tolerating apixaban well. Plan: -Continue apixaban. Portions of this documentation were copied and pasted from my previous office visit note dated 09/15/2024 in order to provide a cohesive continuity of the history. The note has been reviewed and edited and updated as necessary. I spent a total of 20 minutes on the date of the service which included preparing to see the patient, [id number] patient care, completing clinical documentation, obtaining and/or reviewing separately obtained history, performing a medically appropriate examination, counseling and educating the patient/family/caregiver, ordering medications, tests, or procedures, communicating with other HCPs (not separately reported), and communicating results to the patient/family/caregiver. John Albright, DO Allergies As of Date: 09/28/2024 Noted Allergy Reaction ZOFRAN (ONDANSETRON) 07/23/2024 14 - Other: See Comments Comments: Migraines. 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 If Pt. has a central line or IVAD, may access for administration according to line specific nursing protocol.Once exam is complete flush line and de-access according to line specific nursing protocol in the MR contrast administration guidelines linkDisp: 1 EachRfl: 0 Follow-up and Disposition History for Encounter Date Provider Department Center 09/28/2024 [id number] ALBRIGHT [place] [place] Prescriptions as of 09/28/2024 - LORazepam (ATIVAN) 0.5 mg Take 1-2 tablets by mouth three times a day as needed. - iv contrast (will be provided with radiology test) MRI Brain Inject, intravenously, once for 1 [...] in the MR contrast administration guidelines link - cinnamon bark (CINNAMON ORAL) Take 1 tablet by mouth once daily. - cholecalciferol (VITAMIN D-3) 400 unit tab Take 400 Units by mouth once daily. With K2 - LYSINE ORAL Take 1 tablet by mouth daily at 6 am. - OLANZapine (ZYPREXA) 10 mg tablet Take 1 tablet by mouth daily at bedtime. - apixaban (ELIQUIS) 5 mg tab(s) Take 1 tablet by mouth two times a day. - elacestrant (ORSERDU) 345 mg tablet Take 1 tablet (345 mg) by mouth once daily. with a meal. - prochlorperazine (COMPAZINE) 10 mg tablet Take 1 tablet by mouth every 6 hours as needed (For chemotherapy induced nausea and vomiting). - calcium carbonate/vitamin D3 (CALCIUM + D ORAL) Take 1 tablet by mouth once daily. - ginkgo biloba (GINKOBA ORAL) Take 120 mg by mouth once daily. - MULTI-VITAMIN ORAL Take 1 tablet by mouth once daily. - GLUCOSAMINE SULFATE (GLUCOSAMINE ORAL) Take 1 tablet by mouth once daily. - TURMERIC ROOT EXTRACT ORAL Take 450 mg by mouth once daily. Medication notes this encounter ELACESTRANT 345 MG TABLET >> Paulina Jay Ma, MA 09/28/2024 4:01 PM >> PAULINA JAY Sep 28, 2024 4:01 PM Taking one tablet daily. PROCHLORPERAZINE MALEATE 10 MG TABLET >> Paulina Jay Ma, MA 09/28/2024 3:57 PM >> PAULINA JAY Robbintylor Sep 28, 2024 3:57 PM Taking as needed. TURMERIC ROOT EXTRACT ORAL >> Paulina Jay Ma, MA 09/28/2024 3:56 PM >> PAULINA JAY 18, 2025 3:56 PM Resumed Problem List As Of Date 09/28/2024 Noted Resolved Abnormal mammogram [R92.8] 04/01/2016 Malignant neoplasm of upper-outer quadrant of l*04/08/2016 Fat necrosis [M79.89] 01/06/2017 BRCA2 gene mutation positive [Z15.01, Z15.09] 04/07/2024 History of ovarian cancer [Z85.43] 04/07/2024 Pulmonary embolus (HCC) [I26.99] 04/07/2024 Carcinoma of left breast metastatic to bone (HC*05/04/2024 Malignant pleural effusion [J91.0] 05/04/2024 Malignant neoplasm metastatic to brain (HCC) [C*06/07/2024 Dehydration [E86.0] 08/11/2024 Encounter Status:Closed by JOHN ALBRIHGT on 09/28/24 PROGRESS Observed: 09/28/2024 3:53 PM Status: COMPLETED Source: [facility] ID: [id number] Author: JOHN ALBRIGHT DO Service: ? Author Type: Physician Type: Progress Notes Filed: 09/28/2024 16:49 Note Text: Oncologic problem(s): 1) MBC. 2) History of ovarian cancer. 3) Germline BRCA2 mutation. HPI: The patient is a 69-year-old female with a past medical history as [...] 2016. The pathology demonstrated a 2.5 cm ER/IA positive, HER2 negative tumor in the left breast with micro metastasis in 1 of 3 sentinel lymph nodes (0.8 mm). Overall grade was 3. Lymphovascular invasion was present. Closest margin was 2 mm from anterior margin. ER was positive greater than 95%. IA positive greater than 95% with moderate to strong staining intensity. HER2 was equivocal 1-2+; nonamplified by FISH testing. She declined adjuvant chemotherapy but received adjuvant radiation. Was started on AI with anastrozole beginning 10/2016. Was found to have germline BRCA2 mutation. She had declined prophylactic mastectomy and had been undergoing screening for breast cancer. Recently presented to [facility] on 03/12/2024 with a complaint of increasing shortness of breath. Prior to that she had been on a 10-day trip to [place]. CTA of the chest same day demonstrated [...] on 03/22/2024. Most recent screening mammogram 01/2024. [facility]. Son in [place]--helps with house and yard. Daughter in [place]. about 3 years ago. Prior therapy: 1) Anastrozole adjuvant setting--began 10/2016. 2) Letrozole. 3) Olaparib for metastatic disease--didn't tolerate. 4) Gemcitabine. C1D1 07/23/2024. Current therapy: 1) Elacestrant. Presents for ongoing oncologic management. Interim history: Tolerating elacestrant very well. Occasional loose stools. No other side effects. She was seen today urgently. Radiology contacted the office earlier this morning. She had some bloody return on pleural fluid today. They also appreciated a larger left-sided pleural effusion. She has not been holding apixaban for the thoracenteses. The radiology personnel also expressed their concern that she seemed more confused and not understanding her diagnosis. Today she appears to be actually a little more animated. She is here with her friend. She has been smiling a bit more today. She was concerned about the bloody pleural effusion. Breathing is better afterwards. PAST MEDICAL HISTORY Diagnosis Date Breast cancer (HCC) Essential hypertension Hypoxemia Ovarian cancer (HCC) Pulmonary embolism (HCC) Osteoporosis. Had been on alendronate. PAST SURGICAL HISTORY Procedure Laterality Date BSO W/TIESHA AND OMENECTOMY FOR MALIGNANCY 07/14/2012 BX BREAST W/DEVICE 1ST LESION ULTRASOUND GUID Left 04/04/2016 U/S Bx outer mid left breast BX/EXC LYMPH NODE OPEN DEEP AXILLARY NODE Left 04/29/2016 HYSTERECTOMY HX 2009 LX PARTIAL COLECTOMY 07/14/2012 MASTECTOMY, PARTIAL Left 04/29/2016 PAST SURGICAL HISTORY OF Left ablation of vein of left leg for venous reflux cinnamon bark (CINNAMON ORAL) Take 1 tablet by mouth once daily. cholecalciferol (VITAMIN D-3) 400 unit tab Take 400 Units by mouth once daily. With K2 LYSINE ORAL Take 1 tablet by mouth daily at 6 am. OLANZapine (ZYPREXA) 10 mg tablet Take 1 tablet by mouth daily at bedtime. sertraline (ZOLOFT) 25 mg tablet Take 1 tablet by mouth once daily. (Patient not taking: Reported on 09/15/2024) apixaban (ELIQUIS) 5 mg tab(s) Take 1 tablet by mouth two times a day. elacestrant (ORSERDU) 345 mg tablet Take 1 tablet (345 mg) by mouth once daily. with a meal. (Patient not taking: Reported on 09/15/2024) prochlorperazine (COMPAZINE) 10 mg tablet Take 1 tablet by mouth every 6 hours as needed (For chemotherapy induced nausea and vomiting). (Patient not taking: Reported on 09/15/2024) calcium carbonate/vitamin D3 (CALCIUM + D ORAL) Take 1 tablet by mouth once daily. ginkgo biloba (GINKOBA ORAL) Take 120 mg by mouth once daily. MULTI-VITAMIN ORAL Take 1 tablet by mouth once daily. GLUCOSAMINE SULFATE (GLUCOSAMINE ORAL) Take 1 tablet by mouth once daily. TURMERIC ROOT EXTRACT ORAL Take 450 mg by mouth once daily. (Patient not taking: Reported on 09/15/2024) ALLERGIES Allergen Reactions Zofran [Ondansetron] Other: See Comments Migraines. Demeral [Meperidine] GI Upset Percocet [Oxycodone* GI Upset Social History Tobacco Use Smoking status: Never Smokeless tobacco: Never Vaping Use Vaping status: Never Used Substance Use Topics Alcohol use: Not Currently Comment: occ Drug use: Never FAMILY HISTORY Problem Relation Age of Onset Hypertension Mother other (pulmonary embolism) Mother Stroke Father Heart Brother Heart Attack Brother Colon Cancer Maternal Grandmother Heart Maternal Grandfather Prostate Cancer Paternal Grandfather Breast Cancer Maternal Aunt Cancer Maternal Aunt liver Ovarian cancer Maternal cousin Breast Cancer Paternal Aunt Breast Cancer Paternal cousin Breast Cancer Paternal cousin REVIEW OF SYSTEMS: Negative other than HPI. PHYSICAL EXAM: Vitals: Blood pressure 116/76, pulse 107, temperature 37.1 ?C (98.8 ?F), temperature source Temporal, weight 71.4 kg (157 lb 8 oz), SpO2 93%. Well-appearing and in no acute distress. EYES: Sclerae are anicteric bilaterally. LYMPHATIC: There is no palpable adenopathy. CARDIOVASCULAR: Rhythm is regular. ABDOMEN: The abdomen is nondistended. Extremities: No swelling or edema. SKIN: No jaundice. Somewhat depressed affect. IMAGING: PET [facility]: PET scan demonstrated skeletal metastases including right iliac wing, left acetabulum, left sacral parris in the region of the fifth thoracic vertebra. There was also increased tracer concentration in the left hemithorax at the pleural interface fulfilling quantitative criteria for viable neoplasm. MRI brain [facility]: Small focal enhancing nodule measuring 4 mm along the posterior lateral aspect of the right occipital lobe with minimal surrounding edema. Genetic testing: BRCA2 mutation. 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 Elacestrant. -PIK3CA mutation. Alpelisib plus fulvestrant or capivaertib plus fulvestrant -BRCA2 mutation. -TP53 mutation (0.2%). HER2 1-2+ on original surgical specimen 03/2016. 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 Assessment: -Metastatic recurrence of pT2b N1 WI (SN) ER/IA positive, HER2 negative invasive ductal carcinoma of the left breast. -Right-sided malignant pleural effusion. -History of ovarian cancer. -Tolerating elacestrant well. -I explained that it could take several weeks to know if it is going to slow progression of her disease. -Discussed that we will submit for HER2 testing via [facility] pathology department. If she is a candidate then we would consider Enhertu. -Regarding her depressed affect, recommended MRI brain. She received gemcitabine and is at risk for PRES. -Her friend accompanied her to today's visit and her son was available via speaker phone. Plan: -Continue elacestrant. -MRI brain STAT. -Continue biweekly thoracentesis for now. -Will need to discuss bone health issues at next office visit. She gets easily overwhelmed when we discussed too many recommendations at once. -Continue olanzapine 5 mg at [facility]. -Will obtain cytology on left pleural effusion sample from tomorrow. HER2 IHC if feasible. (I27.82) Other chronic pulmonary embolism without acute cor pulmonale (HCC) Assessment: -Tolerating apixaban well. Plan: -Continue apixaban. Portions of this documentation were copied and pasted from my previous office visit note dated 09/15/2024 in order to provide a cohesive continuity of the history. The note has been reviewed and edited and updated as necessary. I spent a total of 20 minutes on the date of the service which included preparing to see the patient, [id number] patient care, completing clinical documentation, obtaining and/or reviewing separately obtained history, performing a medically appropriate examination, counseling and educating the patient/family/caregiver, ordering medications, tests, or procedures, communicating with other HCPs (not separately reported), and communicating results to the patient/family/caregiver. DO SD Bautista Observed: 09/27/2024 12:00 AM Status: COMPLETED Source[facility] (HEMAWS) JOYCE ROBLES ([id number]) 1955 F Date Time Provider Department 09/27/24 JOHN ALBRIGHT During your visit today, we recorded the following information about you: Mary Barone 09/27/2024 4:49 PM Signed Patient called in asking to speak to Jimmie the nurse, She stated she wanted to go over some things with her. Please call her back at your earliest convince at [phone] Renay Barba LPN 09/28/2024 8:17 AM Signed Janey from IR @ [facility] called with an update. Patient had right thoracentesis yesterday (now getting them weekly) and they are planning on a left thoracentesis this week as well; fluid is more red than yellow now. Janey states patient's mental fogging is getting progressively worse from week to week and the patient is not understanding her disease/prognosis and asks the same questions over and over. Patient also thinks she should be getting better from the thoracentesis and the fluid should be decreasing. Have we referred her to palliative care? I can't find anything stating that we have. ELA Patle Paul A, DO 09/28/2024 12:39 PM Signed Would she be able to come in at 4 pm today? DO Amrita Bautista Melanie, LPN 09/28/2024 12:53 PM Signed PSS- please schedule patient to see Dr. Albright today at 4 pm. Patient is aware of appointment. ELA Patel Melissa 09/28/2024 1:45 PM Signed Office visit scheduled Jimmie Crews, RN 09/28/2024 1:53 PM Signed Left ho VM on patients identified VM stating this nurse received her message, hopefully Dr. Albright can address her concerns today at the OV. Call this nurse tomorrow if she still has questions/concerns. iJmmie Crews RN Allergies As of Date: 09/27/2024 Noted Allergy Reaction ZOFRAN (ONDANSETRON) 07/23/2024 14 - Other: See Comments Comments: Migraines. 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 - cholecalciferol (VITAMIN D-3) 400 unit tab Take 400 Units by mouth once daily. With K2 - LYSINE ORAL Take 1 tablet by mouth daily at 6 am. - OLANZapine (ZYPREXA) 10 mg tablet Take 1 tablet by mouth daily at bedtime. - sertraline (ZOLOFT) 25 mg tablet Take 1 tablet by mouth once daily. - apixaban (ELIQUIS) 5 mg tab(s) Take 1 tablet by mouth two times a day. - elacestrant (ORSERDU) 345 mg tablet Take 1 tablet (345 mg) by mouth once daily. with a meal. - prochlorperazine (COMPAZINE) 10 mg tablet Take 1 tablet by mouth every 6 hours as needed (For chemotherapy induced nausea and vomiting). - calcium carbonate/vitamin D3 (CALCIUM + D ORAL) Take 1 tablet by mouth once daily. - ginkgo biloba (GINKOBA ORAL) Take 120 mg by mouth once daily. - MULTI-VITAMIN ORAL Take 1 tablet by mouth once daily. - GLUCOSAMINE SULFATE (GLUCOSAMINE ORAL) Take 1 tablet by mouth once daily. - TURMERIC ROOT EXTRACT ORAL Take 450 mg by mouth once daily. Problem List As Of Date 09/27/2024 Noted Resolved Abnormal mammogram [R92.8] 04/01/2016 Malignant neoplasm of upper-outer quadrant of l*04/08/2016 Fat necrosis [M79.89] 01/06/2017 BRCA2 gene mutation positive [Z15.01, Z15.09] 04/07/2024 History of ovarian cancer [Z85.43] 04/07/2024 Pulmonary embolus (HCC) [I26.99] 04/07/2024 Carcinoma of left breast metastatic to bone (HC*05/04/2024 Malignant pleural effusion [J91.0] 05/04/2024 Malignant neoplasm metastatic to brain (HCC) [C*06/07/2024 Dehydration [E86.0] 08/11/2024 Encounter Status:Closed by JIMMIE CREWS on 09/28/24 SD Observed: 09/24/2024 12:00 AM Status: COMPLETED Source: [facility] Telephone (HEMAWS) JOYCE ROBLES ([id number]) 1955 F Date Time Provider Department 09/24/24 JIMMIE CREWS During your visit today, we recorded the following information about you: Jimmie Crews RN 09/24/2024 2:25 PM Signed [facility] ANTI-CANCER AGENTS FOLLOW-UP PHONE CALL/VISIT Called patient, no answer, left a VM requesting a call back. VÍCTOR Magallon Melissa 09/24/2024 4:02 PM Signed Patient returned call. went to care coord [facility]. Patient asking for a return call today. Jimmie Crews RN 09/24/2024 4:19 PM Signed ORAL ANTI-CANCER AGENTS FOLLOW-UP PHONE CALL/VISIT Patient identified by name and date of . YES Patient is on cycle 1, week 2, day 8 of elacestrant for Breast Cancer. SYMPTOM ASSESSMENT Headache: No Visual Changes: No Dizziness: No Mouth or throat pain: No Appetite: no changes in appetite, appetite fair Nausea: No Vomiting: No Heartburn: No. Weight gain/loss: Unable to assess Episodes of palpitations/chest discomfort/pressure/pain No Shortness of breath: stable from baseline Cough: "a little" dry Diarrhea: yes, first couple of days she had loose stool. Constipation: "nothing unusual" Bladder/Urinary Changes: None Pain: No=0 (pain 0 on a scale of 0-10). Fever: No Chills: No Cold sensitivity: No Numbness/weakness: Yes "feeling little weak again" Edema: No Skin changes: No Itching: No Yellowing of skin or eyes: No Musculoskeletal/joint changes/issues No Bleeding issues: No Activity Level: fair - walked a mile today "exhausted" afterwards. Do you need to take naps? Will rest during the day. Does the patient need interventions or same day appointment:No ADDITIONAL FOLLOW UP: The next outreach call is due on: TBD and was scheduled patient instructed to call with with any new/worsening questions/concerns. The following lab tests are due: 10/07 CBC/CMP/CA 15-3 Verified patient is aware of next appointment in the cancer center: Yes. Verified patient verbalized how to correctly refill the oral agent prescription. Yes Does the patient have any financial difficulties affording this medication? No Patient verbalizes understanding of when to seek Medical Attention? YES Patient verbalizes understanding of after-hours and weekend phone number? YES Patient verbalized importance of medication compliance in taking the oral agent as prescribed. Patient instructed to call if unable to comply. Jimmie Crews RN Allergies As of Date: 09/24/2024 Noted Allergy Reaction ZOFRAN (ONDANSETRON) 07/23/2024 14 - Other: See Comments Comments: Migraines. 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 - cholecalciferol (VITAMIN D-3) 400 unit tab Take 400 Units by mouth once daily. With K2 - LYSINE ORAL Take 1 tablet by mouth daily at 6 am. - OLANZapine (ZYPREXA) 10 mg tablet Take 1 tablet by mouth daily at bedtime. - sertraline (ZOLOFT) 25 mg tablet Take 1 tablet by mouth once daily. - apixaban (ELIQUIS) 5 mg tab(s) Take 1 tablet by mouth two times a day. - elacestrant (ORSERDU) 345 mg tablet Take 1 tablet (345 mg) by mouth once daily. with a meal. - prochlorperazine (COMPAZINE) 10 mg tablet Take 1 tablet by mouth every 6 hours as needed (For chemotherapy induced nausea and vomiting). - calcium carbonate/vitamin D3 (CALCIUM + D ORAL) Take 1 tablet by mouth once daily. - ginkgo biloba (GINKOBA ORAL) Take 120 mg by mouth once daily. - MULTI-VITAMIN ORAL Take 1 tablet by mouth once daily. - GLUCOSAMINE SULFATE (GLUCOSAMINE ORAL) Take 1 tablet by mouth once daily. - TURMERIC ROOT EXTRACT ORAL Take 450 mg by mouth once daily. Problem List As Of Date 09/24/2024 Noted Resolved Abnormal mammogram [R92.8] 04/01/2016 Malignant neoplasm of upper-outer quadrant of l*04/08/2016 Fat necrosis [M79.89] 01/06/2017 BRCA2 gene mutation positive [Z15.01, Z15.09] 04/07/2024 History of ovarian cancer [Z85.43] 04/07/2024 Pulmonary embolus (HCC) [I26.99] 04/07/2024 Carcinoma of left breast metastatic to bone (HC*05/04/2024 Malignant pleural effusion [J91.0] 05/04/2024 Malignant neoplasm metastatic to brain (HCC) [C*06/07/2024 Dehydration [E86.0] 08/11/2024 Encounter Status:Closed by JIMMIE CREWS on 09/24/24 LIPID [id number] PNL SERPL Collected: 025 8:15 AM Status: F Source: [facility] Order Comment: Specimen Type : BLOOD SPECIMEN Ordering Facility: [facility] Address: [address] [place] [address] TYPE CODE TESTS RESULT OUT OF RANGE REFERENCE UNITS LAB 2093-3(LOINC) Cholest SerPl-mCnc 185 <200 mg/dL Result Comment: <200 mg/dL, Desirable 200-239 mg/dL, Borderline high >239 mg/dL, High LAB 2571-8(LOINC) Trigl SerPl-mCnc 140 <150 mg/dL Result Comment: <150 mg/dL, Normal 150-199 mg/dL, Borderline high 200-499 mg/dL, High >499 mg/dL, Very high LAB 2085-9(LOINC) HDLc SerPl-mCnc 46 >39 mg/dL Result Comment: 40-59 mg/dL, Acceptable >59 mg/dL, High: Negative risk factor for coronary heart disease <40 mg/dL, Low: Positive risk factor for coronary heart disease LAB 92671-4(LOINC) NonHDLc SerPl-mCnc 139 High <130 mg/dL Result Comment: <130 mg/dL, Optimal 130-159 mg/dL, Near optimal/above optimal 160-189 mg/dL, Borderline high 190-219 mg/dL, High >219 mg/dL, Very high Secondary prevention optimal non HDL Cholesterol levels are recommended to be <100 mg/dL LAB FT FASTING TIME 12 hrs LAB 12825-2(LOINC) VLDLc SerPl Calc-mCnc 28 <30 mg/dL LAB 9830-1(LOINC) Cholest/HDLc SerPl 4.02 <5.10 LAB 2089-1(LOINC) LDLc SerPl-mCnc 111 High <100 mg/dL Result Comment: <100 mg/dL, Optimal 100-129 mg/dL, Near optimal/above optimal 130-159 mg/dL, Borderline high 160-189 mg/dL, High >189 mg/dL, Very high Secondary prevention optimal LDL Cholesterol levels are recommended to be < 70 mg/dL LAB 82087-2(LOINC) LDLc/HDLc SerPl 2.41 <2.54 Result Comment: Reference: 1. National Cholesterol Education Program ATP III Guideline At-A-Glance Quick Desk Reference: National Heart, Lung, and Blood Prim. National Institutes of Health. 2001: NIH Publication No. 01-3305. 2. An International Atherosclerosis Society position paper: global recommendations for the management of dyslipidemia: executive summary, Atherosclerosis. 2014: 232(2):410-413. Performed By: #### [id number] # ### [facility] CLIA [id number] [address] [place], [place] [address] [address] [place] [facility] CLIA [id number] [address] [place] CNPN Observed: 09/17/2024 12:00 AM Status: COMPLETED Source: [facility] Telephone (HEMAWS) JOYCE ROBLES ([id number]) 1955 F Date Time Provider Department 09/17/24 JIMMIE CREWS During your visit today, we recorded the following information about you: Jimmie Crews, RN 09/17/2024 2:47 PM Signed [facility] ANTI-CANCER AGENTS EDUCATION patient called today for oral medication education of orserdu for Breast Cancer Anticipated/Scheduled start date: 09/16/24 READINESS TO LEARN Cognitive Ability: Alert and oriented Motivation to Learn: Interested Family Support: High - Very involved in pt care Instruction Provided to: Patient Patient learns best by: Multiple Methods Factors affecting learning: None Physical limitation affecting learning: None WEINER ASSESSMENT: 1.) Verified that patient knows that the oral agents are for cancer and are taken by mouth. Yes 2.) Medication review completed during visit. No-- patient was watching her grandchild so the call quick. 3.) Patient is able to swallow pills. Yes 4.) Patient is able to read the drug label/information. Yes 5.) Patient is able to open the medication bottles and packages. Yes 6.) Has patient taken other pills for cancer? YES, please explain: olaparib 7.) Is patient experiencing any symptoms that [...] provide reinforcement of teaching topics as needed. VÍCTOR Magallon Amber, RN 09/17/2024 2:47 PM Signed Patient started/will start taking orserdu on 09/16/24 Patient started orserdu yesterday. Please advise follow-up plan. Thank you. Jimmie Crews RN . John Albright DO 09/17/2024 5:17 PM Signed She should have a fasting lipid panel early next week. Set up office visit with CBC/CMP/CA 15 3 in about 2 to 3 weeks. DO Amrita Walls Melanie, LPN 09/20/2024 8:20 AM Signed PSS- please schedule the lipid panel in lab for 09/21/2024 @ 9:00. The patient is aware of this appointment date and time. She will still need called to set up office visit with CBC/CMP/CA 15 3 in about 2 to 3 weeks. ELA Patel Melissa 09/20/2024 8:32 AM Signed Lab scheduled thru My Chart Advice Request. OV still needed Mary Barone 09/20/2024 9:40 AM Signed I called and spoke to Joyce and scheduled her for 10/07/24 for lab work at 11 am and then office visit with at 11:30 am. She confirmed this date and time Mary Gallegos Pss Allergies As of Date: 09/17/2024 Noted Allergy Reaction ZOFRAN (ONDANSETRON) 07/23/2024 14 - Other: See Comments Comments: Migraines. DEMERAL (MEPERIDINE) 04/01/2016 8 - GI Upset PERCOCET (OXYCODONE-ACETAMINOPHEN)04/01/2016 8 - GI Upset Date Reviewed: 09/15/2024 Reviewed by: Keith Boland MA - Fully Assessed Primary Visit Diagnosis: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) [C50.912, C79.51] Other Visit Diagnosis:Sequelae of protein-calorie malnutrition (HCC) [E64.0] Order(s):LIPID PANEL BASIC [SQLIPB] Order #: [id number] FUTURE Prescriptions as of 09/20/2024 - cinnamon bark (CINNAMON ORAL) Take 1 tablet by mouth once daily. - cholecalciferol (VITAMIN D-3) 400 unit tab Take 400 Units by mouth once daily. With K2 - LYSINE ORAL Take 1 tablet by mouth daily at 6 am. - OLANZapine (ZYPREXA) 10 mg tablet Take 1 tablet by mouth daily at bedtime. - sertraline (ZOLOFT) 25 mg tablet Take 1 tablet by mouth once daily. - apixaban (ELIQUIS) 5 mg tab(s) Take 1 tablet by mouth two times a day. - elacestrant (ORSERDU) 345 mg tablet Take 1 tablet (345 mg) by mouth once daily. with a meal. - prochlorperazine (COMPAZINE) 10 mg tablet Take 1 tablet by mouth every 6 hours as needed (For chemotherapy induced nausea and vomiting). - calcium carbonate/vitamin D3 (CALCIUM + D ORAL) Take 1 tablet by mouth once daily. - ginkgo biloba (GINKOBA ORAL) Take 120 mg by mouth once daily. - MULTI-VITAMIN ORAL Take 1 tablet by mouth once daily. - GLUCOSAMINE SULFATE (GLUCOSAMINE ORAL) Take 1 tablet by mouth once daily. - TURMERIC ROOT EXTRACT ORAL Take 450 mg by mouth once daily. Problem List As Of Date 09/17/2024 Noted Resolved Abnormal mammogram [R92.8] 04/01/2016 Malignant neoplasm of upper-outer quadrant of l*04/08/2016 Fat necrosis [M79.89] 01/06/2017 BRCA2 gene mutation positive [Z15.01, Z15.09] 04/07/2024 History of ovarian cancer [Z85.43] 04/07/2024 Pulmonary embolus (HCC) [I26.99] 04/07/2024 Carcinoma of left breast metastatic to bone (HC*05/04/2024 Malignant pleural effusion [J91.0] 05/04/2024 Malignant neoplasm metastatic to brain (HCC) [C*06/07/2024 Dehydration [E86.0] 08/11/2024 Medications Discontinued During This Encounter Prescriptions - hydrOXYzine pamoate (VISTARIL) 25 mg capsule (Discontinued) Reported on 09/15/2024 Encounter Status:Closed by MARY BARONE on 09/20/24 PROGRESS Observed: 09/15/2024 10:01 AM Status: COMPLETED Source: [facility] HNO ID: [id number] Author: JOHN ALBRIGHT, DO Service: ? Author Type: Physician Type: Progress Notes Filed: 09/17/2024 17:17 Note Text: Oncologic problem(s): 1) MBC. 2) History of ovarian cancer. 3) Germline BRCA2 mutation. HPI: The patient is a 69-year-old female with a past medical history as [...] 2016. The pathology demonstrated a 2.5 cm ER/IA positive, HER2 negative tumor in the left breast with micro metastasis in 1 of 3 sentinel lymph nodes (0.8 mm). Overall grade was 3. Lymphovascular invasion was present. Closest margin was 2 mm from anterior margin. ER was positive greater than 95%. IA positive greater than 95% with moderate to strong staining intensity. HER2 was equivocal 1-2+; nonamplified by FISH testing. She declined adjuvant chemotherapy but received adjuvant radiation. Was started on AI with anastrozole beginning 10/2016. Was found to have germline BRCA2 mutation. She had declined prophylactic mastectomy and had been undergoing screening for breast cancer. Recently presented to [facility] on 03/12/2024 with a complaint of increasing shortness of breath. Prior to that she had been on a 10-day trip to [place]. CTA of the chest same day demonstrated [...] on 03/22/2024. Most recent screening mammogram 01/2024. Lives in town. Son in [place]--helps with house and yard. Daughter in [place]. about 3 years ago. Prior therapy: 1) Anastrozole adjuvant setting--began 10/2016. 2) Letrozole. 3) Olaparib for metastatic disease--didn't tolerate. 4) Gemcitabine. C1D1 07/23/2024. Current therapy: 1) To begin elacestrant. Presents for ongoing oncologic management. Interim history: Her son accompanied her to today's visit. She still has poor appetite and a difficult time sleeping. Ativan did not seem to help. Olanzapine at 5 mg seems to help better. Very difficult time sleeping last night in anticipation of today's appointment. Met with Dr. Hernandez. Declined Pleurx catheter placement. Found that she does not have to hold apixaban for thoracentesis. Still having a lot of mental fogging and gets overwhelmed very easily. Tried low-dose Zoloft but it seemed to exacerbate dry mouth. PAST MEDICAL HISTORY Diagnosis Date Breast cancer (HCC) Essential hypertension Hypoxemia Ovarian cancer (HCC) Pulmonary embolism (HCC) Osteoporosis. Had been on alendronate. PAST SURGICAL HISTORY Procedure Laterality Date BSO W/TIESHA AND OMENECTOMY FOR MALIGNANCY 07/14/2012 BX BREAST W/DEVICE 1ST LESION ULTRASOUND GUID Left 04/04/2016 U/S Bx outer mid left breast BX/EXC LYMPH NODE OPEN DEEP AXILLARY NODE Left 04/29/2016 HYSTERECTOMY HX 2009 LX PARTIAL COLECTOMY 07/14/2012 MASTECTOMY, PARTIAL Left 04/29/2016 PAST SURGICAL HISTORY OF Left ablation of vein of left leg for venous reflux cinnamon bark (CINNAMON ORAL) Take 1 tablet by mouth once daily. cholecalciferol (VITAMIN D-3) 400 unit tab Take 400 Units by mouth once daily. With K2 LYSINE ORAL Take 1 tablet by mouth daily at 6 am. OLANZapine (ZYPREXA) 5 mg tablet Take 1-2 tablets by mouth daily at bedtime. apixaban (ELIQUIS) 5 mg tab(s) Take 1 tablet by mouth two times a day. calcium carbonate/vitamin D3 (CALCIUM + D ORAL) Take 1 tablet by mouth once daily. ginkgo biloba (GINKOBA ORAL) Take 120 mg by mouth once daily. MULTI-VITAMIN ORAL Take 1 tablet by mouth once daily. GLUCOSAMINE SULFATE (GLUCOSAMINE ORAL) Take 1 tablet by mouth once daily. sertraline (ZOLOFT) 25 mg tablet Take 1 tablet by mouth once daily. (Patient not taking: Reported on 09/15/2024) elacestrant (ORSERDU) 345 mg tablet Take 1 tablet (345 mg) by mouth once daily. with a meal. (Patient not taking: Reported on 09/15/2024) prochlorperazine (COMPAZINE) 10 mg tablet Take 1 tablet by mouth every 6 hours as needed (For chemotherapy induced nausea and vomiting). (Patient not taking: Reported on 09/15/2024) hydrOXYzine pamoate (VISTARIL) 25 mg capsule TAKE 1 (ONE) CAPSULE BY MOUTH DAILY AT BEDTIME NEEDED FOR SLEEP (Patient not taking: Reported on 09/15/2024) TURMERIC ROOT EXTRACT ORAL Take 450 mg by mouth once daily. (Patient not taking: Reported on 09/15/2024) ALLERGIES Allergen Reactions Zofran [Ondansetron] Other: See Comments Migraines. Demeral [Meperidine] GI Upset Percocet [Oxycodone* GI Upset Social History Tobacco Use Smoking status: Never Smokeless tobacco: Never Vaping Use Vaping status: Never Used Substance Use Topics Alcohol use: Not Currently Comment: occ Drug use: Never FAMILY HISTORY Problem Relation Age of Onset Hypertension Mother other (pulmonary embolism) Mother Stroke Father Heart Brother Heart Attack Brother Colon Cancer Maternal Grandmother Heart Maternal Grandfather Prostate Cancer Paternal Grandfather Breast Cancer Maternal Aunt Cancer Maternal Aunt liver Ovarian cancer Maternal cousin Breast Cancer Paternal Aunt Breast Cancer Paternal cousin Breast Cancer Paternal cousin REVIEW OF SYSTEMS: Negative other than HPI. PHYSICAL EXAM: Vitals: Blood pressure 118/78, pulse 111, temperature 36.7 ?C (98 ?F), temperature source Oral, weight 72.8 kg (160 lb 8 oz), SpO2 95%. Less fatigued-appearing and in no acute distress. EYES: Sclerae are anicteric bilaterally. LYMPHATIC: There is no palpable adenopathy. CARDIOVASCULAR: Rhythm is regular. ABDOMEN: The abdomen is nondistended. Extremities: No swelling or edema. SKIN: No jaundice. IMAGING: PET [facility]: PET scan demonstrated skeletal metastases including right iliac wing, left acetabulum, left sacral parris in the region of the fifth thoracic vertebra. There was also increased tracer concentration in the left hemithorax at the pleural interface fulfilling quantitative criteria for viable neoplasm. MRI brain [facility]: Small focal enhancing nodule measuring 4 mm along the posterior lateral aspect of the right occipital lobe with minimal surrounding edema. Genetic testing: BRCA2 mutation. 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 Elacestrant. -PIK3CA mutation. Alpelisib plus fulvestrant or capivaertib plus fulvestrant -BRCA2 mutation. -TP53 mutation (0.2%). HER2 1-2+ on original surgical specimen 03/2016. 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 Assessment: -Metastatic recurrence of pT2b N1 WI (SN) ER/IA positive, HER2 negative invasive ductal carcinoma of the left breast. -Right-sided malignant pleural effusion. -History of ovarian cancer. -Recent PET showed PD. -We discussed several issues today. First, discussed increasing dose of olanzapine to 10 mg at at bedtime to see if they get her better night sleep. Also I encouraged her to try lorazepam in the mornings to help with anxiety. We reviewed her concerns about elacestrant. Discussed other options would be capecitabine and paclitaxel. Hair loss however would be overwhelming for her. She is willing to try elacestrant. -Also offered repeat MRI brain sooner due to mental fogging. She declined. Plan: -We will contact specialty pharmacy to send elacestrant. -MRI brain per neurosurgery. -Continue biweekly thoracentesis for now. -Will need to discuss bone health issues at next office visit. -Rx olanzapine 10 mg tablets. (I27.82) Other chronic pulmonary embolism without acute cor pulmonale (HCC) Assessment: -Tolerating apixaban well. Plan: -Continue apixaban. Portions of this documentation were copied and pasted from my previous office visit note dated 08/24/2024 in order to provide a cohesive continuity of the history. The note has been reviewed and edited and updated as necessary. I spent a total of 45 minutes on the date of the service which included preparing to see the patient, [id number] patient care, completing clinical documentation, counseling and educating the patient/family/caregiver, ordering medications, tests, or procedures, communicating with other HCPs (not separately reported), and communicating results to the patient/family/caregiver. John Albright DO CNOVSP Observed: 09/15/2024 9:50 AM Status: COMPLETED Source: [facility] Visit (SP) Office (NELIDA) JOYCE ROBLES ([id number]) 1955 F Date Time Provider Department 09/15/24 9:50 AM JOHN ALBRIGHT During your visit today, we recorded the following information about you: Temperature Pulse Blood pressure Weight 98 degrees 111/minute 118/78 72.8 kg John Albright DO 09/17/2024 5:17 PM Addendum Oncologic problem(s): 1) MBC. 2) History of ovarian cancer. 3) Germline BRCA2 mutation. HPI: The patient is a 69-year-old female with a past medical history as [...] 2016. The pathology demonstrated a 2.5 cm ER/IA positive, HER2 negative tumor in the left breast with micro metastasis in 1 of 3 sentinel lymph nodes (0.8 mm). Overall grade was 3. Lymphovascular invasion was present. Closest margin was 2 mm from anterior margin. ER was positive greater than 95%. IA positive greater than 95% with moderate to strong staining intensity. HER2 was equivocal 1-2+; nonamplified by FISH testing. She declined adjuvant chemotherapy but received adjuvant radiation. Was started on AI with anastrozole beginning 10/2016. Was found to have germline BRCA2 mutation. She had declined prophylactic mastectomy and had been undergoing screening for breast cancer. Recently presented to [facility] on 03/12/2024 with a complaint of increasing shortness of breath. Prior to that she had been on a 10-day trip to [place]. CTA of the chest same day demonstrated [...] on 03/22/2024. Most recent screening mammogram 01/2024. [facility]. Son in [place]--helps with house and yard. Daughter in [place]. about 3 years ago. Prior therapy: 1) Anastrozole adjuvant setting--began 10/2016. 2) Letrozole. 3) Olaparib for metastatic disease--didn't tolerate. 4) Gemcitabine. C1D1 07/23/2024. Current therapy: 1) To begin elacestrant. Presents for ongoing oncologic management. Interim history: Her son accompanied her to today's visit. She still has poor appetite and a difficult time sleeping. Ativan did not seem to help. Olanzapine at 5 mg seems to help better. Very difficult time sleeping last night in anticipation of today's appointment. Met with Dr. Hernandez. Declined Pleurx catheter placement. Found that she does not have to hold apixaban for thoracentesis. Still having a lot of mental fogging and gets overwhelmed very easily. Tried low-dose Zoloft but it seemed to exacerbate dry mouth. PAST MEDICAL HISTORY Diagnosis Date Breast cancer (HCC) Essential hypertension Hypoxemia Ovarian cancer (HCC) Pulmonary embolism (HCC) Osteoporosis. Had been on alendronate. PAST SURGICAL HISTORY Procedure Laterality Date BSO W/TIESHA AND OMENECTOMY FOR MALIGNANCY 07/14/2012 BX BREAST W/DEVICE 1ST LESION ULTRASOUND GUID Left 04/04/2016 U/S Bx outer mid left breast BX/EXC LYMPH NODE OPEN DEEP AXILLARY NODE Left 04/29/2016 HYSTERECTOMY HX 2009 LX PARTIAL COLECTOMY 07/14/2012 MASTECTOMY, PARTIAL Left 04/29/2016 PAST SURGICAL HISTORY OF Left ablation of vein of left leg for venous reflux cinnamon bark (CINNAMON ORAL) Take 1 tablet by mouth once daily. cholecalciferol (VITAMIN D-3) 400 unit tab Take 400 Units by mouth once daily. With K2 LYSINE ORAL Take 1 tablet by mouth daily at 6 am. OLANZapine (ZYPREXA) 5 mg tablet Take 1-2 tablets by mouth daily at bedtime. apixaban (ELIQUIS) 5 mg tab(s) Take 1 tablet by mouth two times a day. calcium carbonate/vitamin D3 (CALCIUM + D ORAL) Take 1 tablet by mouth once daily. ginkgo biloba (GINKOBA ORAL) Take 120 mg by mouth once daily. MULTI-VITAMIN ORAL Take 1 tablet by mouth once daily. GLUCOSAMINE SULFATE (GLUCOSAMINE ORAL) Take 1 tablet by mouth once daily. sertraline (ZOLOFT) 25 mg tablet Take 1 tablet by mouth once daily. (Patient not taking: Reported on 09/15/2024) elacestrant (ORSERDU) 345 mg tablet Take 1 tablet (345 mg) by mouth once daily. with a meal. (Patient not taking: Reported on 09/15/2024) prochlorperazine (COMPAZINE) 10 mg tablet Take 1 tablet by mouth every 6 hours as needed (For chemotherapy induced nausea and vomiting). (Patient not taking: Reported on 09/15/2024) hydrOXYzine pamoate (VISTARIL) 25 mg capsule TAKE 1 (ONE) CAPSULE BY MOUTH DAILY AT BEDTIME NEEDED FOR SLEEP (Patient not taking: Reported on 09/15/2024) TURMERIC ROOT EXTRACT ORAL Take 450 mg by mouth once daily. (Patient not taking: Reported on 09/15/2024) ALLERGIES Allergen Reactions Zofran [Ondansetron] Other: See Comments Migraines. Demeral [Meperidine] GI Upset Percocet [Oxycodone* GI Upset Social History Tobacco Use Smoking status: Never Smokeless tobacco: Never Vaping Use Vaping status: Never Used Substance Use Topics Alcohol use: Not Currently Comment: occ Drug use: Never FAMILY HISTORY Problem Relation Age of Onset Hypertension Mother other (pulmonary embolism) Mother Stroke Father Heart Brother Heart Attack Brother Colon Cancer Maternal Grandmother Heart Maternal Grandfather Prostate Cancer Paternal Grandfather Breast Cancer Maternal Aunt Cancer Maternal Aunt liver Ovarian cancer Maternal cousin Breast Cancer Paternal Aunt Breast Cancer Paternal cousin Breast Cancer Paternal cousin REVIEW OF SYSTEMS: Negative other than HPI. PHYSICAL EXAM: Vitals: Blood pressure 118/78, pulse 111, temperature 36.7 ?C (98 ?F), temperature source Oral, weight 72.8 kg (160 lb 8 oz), SpO2 95%. Less fatigued-appearing and in no acute distress. EYES: Sclerae are anicteric bilaterally. LYMPHATIC: There is no palpable adenopathy. CARDIOVASCULAR: Rhythm is regular. ABDOMEN: The abdomen is nondistended. Extremities: No swelling or edema. SKIN: No jaundice. IMAGING: PET WC: PET scan demonstrated skeletal metastases including right iliac wing, left acetabulum, left sacral parris in the region of the fifth thoracic vertebra. There was also increased tracer concentration in the left hemithorax at the pleural interface fulfilling quantitative criteria for viable neoplasm. MRI brain [facility]: Small focal enhancing nodule measuring 4 mm along the posterior lateral aspect of the right occipital lobe with minimal surrounding edema. Genetic testing: BRCA2 mutation. 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 Elacestrant. -PIK3CA mutation. Alpelisib plus fulvestrant or capivaertib plus fulvestrant -BRCA2 mutation. -TP53 mutation (0.2%). HER2 1-2+ on original surgical specimen 03/2016. 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 Assessment: -Metastatic recurrence of pT2b N1 WI (SN) ER/IA positive, HER2 negative invasive ductal carcinoma of the left breast. -Right-sided malignant pleural effusion. -History of ovarian cancer. -Recent PET showed PD. -We discussed several issues today. First, discussed increasing dose of olanzapine to 10 mg at at bedtime to see if they get her better night sleep. Also I encouraged her to try lorazepam in the mornings to help with anxiety. We reviewed her concerns about elacestrant. Discussed other options would be capecitabine and paclitaxel. Hair loss however would be overwhelming for her. She is willing to try elacestrant. -Also offered repeat MRI brain sooner due to mental fogging. She declined. Plan: -We will contact specialty pharmacy to send elacestrant. -MRI brain per neurosurgery. -Continue biweekly thoracentesis for now. -Will need to discuss bone health issues at next office visit. -Rx olanzapine 10 mg tablets. (I27.82) Other chronic pulmonary embolism without acute cor pulmonale (HCC) Assessment: -Tolerating apixaban well. Plan: -Continue apixaban. Portions of this documentation were copied and pasted from my previous office visit note dated 08/24/2024 in order to provide a cohesive continuity of the history. The note has been reviewed and edited and updated as necessary. I spent a total of 45 minutes on the date of the service which included preparing to see the patient, [id number] patient care, completing clinical documentation, counseling and educating the patient/family/caregiver, ordering medications, tests, or procedures, communicating with other HCPs (not separately reported), and communicating results to the patient/family/caregiver. John Albright, DO Allergies As of Date: 09/15/2024 Noted Allergy Reaction ZOFRAN (ONDANSETRON) 07/23/2024 14 - Other: See Comments Comments: Migraines. DEMERAL (MEPERIDINE) 04/01/2016 8 - GI Upset PERCOCET (OXYCODONE-ACETAMINOPHEN)04/01/2016 8 - GI Upset Date Reviewed: 09/15/2024 Reviewed by: Keith Boland MA - Fully Assessed Reason for Visit: Established Patient [175] Primary Visit Diagnosis:Malignant neoplasm of upper-outer quadrant of left breast in female, estrogen receptor positive (HCC) [C50.412, Z17.0] Other Visit Diagnoses: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) [C50.912, C79.51] Malignant neoplasm metastatic to brain (HCC) [C79.31] Malignant pleural effusion [J91.0] Other chronic pulmonary embolism without acute cor pulmonale (HCC) [I27.82] Insomnia due to medical condition [G47.01] Anxiety associated with cancer diagnosis (HCC) [F41.1, C80.1] Order(s):OLANZapine (ZYPREXA) 10 mg tabletTake 1 tablet by mouth daily at bedtime.Disp: 30 tabletRfl: 2 Follow-up and Disposition History for Encounter Date Provider Department Center 09/15/2024 [id number] ALBRIGHT [facility] [employer] Prescriptions as of 09/17/2024 - cinnamon bark (CINNAMON ORAL) Take 1 tablet by mouth once daily. - cholecalciferol (VITAMIN D-3) 400 unit tab Take 400 Units by mouth once daily. With K2 - LYSINE ORAL Take 1 tablet by mouth daily at 6 am. - OLANZapine (ZYPREXA) 10 mg tablet Take 1 tablet by mouth daily at bedtime. - sertraline (ZOLOFT) 25 mg tablet Take 1 tablet by mouth once daily. - apixaban (ELIQUIS) 5 mg tab(s) Take 1 tablet by mouth two times a day. - elacestrant (ORSERDU) 345 mg tablet Take 1 tablet (345 mg) by mouth once daily. with a meal. - prochlorperazine (COMPAZINE) 10 mg tablet Take 1 tablet by mouth every 6 hours as needed (For chemotherapy induced nausea and vomiting). - calcium carbonate/vitamin D3 (CALCIUM + D ORAL) Take 1 tablet by mouth once daily. - ginkgo biloba (GINKOBA ORAL) Take 120 mg by mouth once daily. - MULTI-VITAMIN ORAL Take 1 tablet by mouth once daily. - GLUCOSAMINE SULFATE (GLUCOSAMINE ORAL) Take 1 tablet by mouth once daily. - TURMERIC ROOT EXTRACT ORAL Take 450 mg by mouth once daily. Medication notes this encounter SERTRALINE 25 MG TABLET >> Keith Boland MA 09/15/2024 9:40 AM >> KEITH BOLAND FriSep 15, 2024 9:40 AM D/C ELACESTRANT 345 MG TABLET >> Keith Boland MA 09/15/2024 9:42 AM >> KEITH BOLAND [facility] Sep 15, 2024 9:42 AM D/C PROCHLORPERAZINE MALEATE 10 MG TABLET >> Keith Boland MA 09/15/2024 9:41 AM >> KEITH BOLAND [facility] Sep 15, 2024 9:41 AM Completed HYDROXYZINE PAMOATE 25 MG CAPSULE >> Keith Boland MA 09/15/2024 9:41 AM >> KEITH BOLAND FriSep 15, 2024 9:41 AM D/C TURMERIC ROOT EXTRACT ORAL >> Keith Boland MA 09/15/2024 9:40 AM >> KEITH BOLAND [facility] Sep 15, 2024 9:40 AM D/C Problem List As Of Date 09/15/2024 Noted Resolved Abnormal mammogram [R92.8] 04/01/2016 Malignant neoplasm of upper-outer quadrant of l*04/08/2016 Fat necrosis [M79.89] 01/06/2017 BRCA2 gene mutation positive [Z15.01, Z15.09] 04/07/2024 History of ovarian cancer [Z85.43] 04/07/2024 Pulmonary embolus (HCC) [I26.99] 04/07/2024 Carcinoma of left breast metastatic to bone (HC*05/04/2024 Malignant pleural effusion [J91.0] 05/04/2024 Malignant neoplasm metastatic to brain (HCC) [C*06/07/2024 Dehydration [E86.0] 08/11/2024 Encounter Status:Closed by JOHN ALBRIGHT on 09/15/24 COMP METAB 2000 PNL SERPL Collected: 9:24 AM Status: F Source: [facility] Order Comment: Specimen Type : BLOOD SPECIMEN Ordering Facility: [facility] Address: [address] [place] [address] TYPE CODE TESTS RESULT OUT OF RANGE REFERENCE UNITS LAB 2885-2(LOINC) Prot SerPl-mCnc 5.2 Low 6.3-8.0 g/dL LAB 1751-7(LOINC) Albumin SerPl-mCnc 2.7 Low 3.9-4.9 g/dL LAB 02869-0(LOINC) Calcium SerPl-mCnc 9.1 8.5-10.2 mg/dL LAB 1975-2(LOINC) Bilirub SerPl-mCnc 0.5 0.2-1.3 mg/dL LAB 6768-6(LOINC) ALP SerPl-cCnc 118 34-123 U/L LAB 1920-8(LOINC) AST SerPl-cCnc 31 13-35 U/L LAB 1742-6(LOINC) ALT SerPl-cCnc 16 7-38 U/L LAB 2345-7(LOINC) Glucose SerPl-mCnc 135 High 74-99 mg/dL Result Comment: The [place] Diabetes Association (ADA) provides guidance for cutoff values for fasting glucose and random glucose. The ADA defines fasting as no caloric intake for at least 8 hours. Fasting plasma glucose results between 100 to 125 mg/dL indicate increased risk for diabetes (prediabetes). Fasting plasma glucose results greater than or equal to 126 mg/dL meet the criteria for diagnosis of diabetes. In the absence of unequivocal hyperglycemia, results should be confirmed by repeat testing. In a patient with classic symptoms of hyperglycemia or hyperglycemic crisis, random plasma glucose results greater than or equal to 200 mg/dL meet the criteria for diagnosis of diabetes. Reference: Standards of Medical Care in Diabetes 2016, [place] Diabetes Association. Diabetes Care. 2016.39(Suppl 1). LAB 3094-0(LOINC) BUN SerPl-mCnc 13 7-21 mg/ dL LAB 2160-0(LOINC) Creat SerPl-mCnc 0.74 0.58-0.96 mg/dL LAB 2951-2(LOINC) Sodium SerPl-sCnc 134 Low 136-144 mmol/L LAB 2823-3(LOINC) Potassium SerPl-sCnc 4.1 3.7-5.1 mmol/L LAB 2075-0(LOINC) Chloride SerPl-sCnc 104 98-107 mmol/L LAB 8-9(LOINC) CO2 SerPl-sCnc 24 22-30 mmo l/L LAB 50564-0(LOINC) Anion Gap SerPl-sCnc 6 Low 8-15 mmol/L LAB 22363-6(LOINC) Creatinine + eGFR Pnl SerPlBld 87 >=60 mL/min/1 .73m??? Result Comment: Estimated Gl omerular Filtration Rate (eGFR) is calculated using the 2020 CKD-EPI creatinine equation. This equation utilizes serum creatinine, sex, and age as parameters. The creatinine assay has traceable calibration to isotope dilution-mass spectrometry. Refer to KDIGO guidelines for clinical interpretation. In patients with unstable renal function, e.g. those with acute kidney injury, the eGFR may not accurately reflect actual GFR. Performed By: #### [id number] # ### [facility] CLIA [id number] [address] [place] [address] [place] CBC W AUTO DIFF BLD Collected: 09/15/2024 9:[address] atus: F Source: [facility] Order Comment: Specimen Type : BLOOD SPECIMEN Ordering Facility: [facility] Address: [address] [place], [place] [address] [address] TYPE CODE TESTS RESULT OUT OF RANGE REFERENCE UNITS LAB 6690-2(LOINC) WBC # Bld Auto 12.15 High 3.70-11.00 k/uL LAB 789-8(LOINC) RBC # Bld Auto 3.42 Low 3.90-5.20 m/ uL LAB 718-7(LOINC) Hgb Bld-mCnc 12.2 11.5-15.5 g/dL LAB 4544-3([facility]) Hct VFr Bld Auto 36.7 36.0-46.0 % LAB 787-2([facility]) MCV RBC Auto 107.3 High 80.0-100.0 fL LAB 785-6([facility]) MCH RBC Qn Auto 35.7 High 26.0-34.0 p g LAB 786-4([facility]) MCHC RBC Auto-mCnc 33.2 30.5-36.0 g/dL LAB 13875-6([facility]) RDW RBC-Rto 13.2 11.5-15.0 % LAB 777-3([facility]) Platelet # Bld Auto 268 150-400 k/uL LAB 62097-8([facility]) PMV Bld Auto 9.8 9.0-12.7 fL LAB 770-8([facility]) Neutrophils/leuk NFr Bld Auto 80.1 % LAB 751-8([facility]) Neutrophils # Bld Auto 9.74 High 1.45-7.50 k/uL LAB 736-9([facility]) Lymphocytes/leuk NFr Bld Auto 6.9 % LAB 731-0([facility]) Lymphocytes # Bld Auto 0.84 Low 1.00-4.00 k/uL LAB 5905-5([facility]) Monocytes/leuk NFr Bld Auto 11.7 % LAB 742-7([facility]) Monocytes # Bld Auto 1.42 High <0.87 k/uL LAB 713-8([facility]) Eosinophil/leuk NFr Bld Auto 0.2 % LAB 711-2([facility]) Eosinophil # Bld Auto <0.03 <0.46 k/uL LAB 706-2([facility]) Basophils/leuk NFr Bld Auto 0.5 % LAB 704-7([facility]) Basophils # Bld Auto 0.06 <0.11 k/uL LAB 30093-8([facility]) Imm Granulocytes/jose k NFr Bld Auto 0.6 % LAB 60955-1([facility]) Imm Granulocytes # Bld Auto 0.07 <0.10 k/uL LAB 63807-5([facility]) nRBC/100 WBC Bld-Rto 0.0 /100 WBC LAB 771-6(LOINC) nRBC # Bld Auto <0.01 <0.01 k/u L LAB 75909-0(LOINC) Differential method Bld Auto Performed By: #### [id number] # ### [facility] CLIA [id number] [address] [place] [address] CNPN Observed: 09/14/2024 12:00 AM Status: COMPLETED Source: [facility] Telephone ([employer]) JOYCE ROBLES ([id number]) 1955 F Date Time Provider Department 09/14/24 JOHN ALBRIGHT During your visit today, we recorded the following information about you: Shanon Bruno LPN 09/14/2024 2:02 PM Signed Received call from specialty pharmacy. Pt has not set up delivery for Orserdu with pharmacy yet as she tells them she has concerns on taking the medication. Instructions she was given today on the call with pharmacy were to take with her biggest meal of the day, pt voiced she often has a poor appetite. Pt wants to discuss with you at apt tomorrow. ELA Tan Paul A, DO 09/14/2024 5:48 PM Signed Got it. I'm going to try to get her to try Taxol. John Albright DO Allergies As of Date: 09/14/2024 Noted Allergy Reaction ZOFRAN (ONDANSETRON) 07/23/2024 14 - Other: See Comments Comments: Migraines. DEMERAL (MEPERIDINE) 04/01/2016 8 - GI Upset PERCOCET (OXYCODONE-ACETAMINOPHEN)04/01/2016 8 - GI Upset Date Reviewed: 08/24/2024 Reviewed by: Paulina Jay Ma, MA - Fully Assessed Reason for Visit: Medication Problem [65] Prescriptions as of 09/15/2024 - OLANZapine (ZYPREXA) 5 mg tablet Take 1-2 tablets by mouth daily at bedtime. - sertraline (ZOLOFT) 25 mg tablet Take 1 tablet by mouth once daily. - apixaban (ELIQUIS) 5 mg tab(s) Take 1 tablet by mouth two times a day. - elacestrant (ORSERDU) 345 mg tablet Take 1 tablet (345 mg) by mouth once daily. with a meal. - prochlorperazine (COMPAZINE) 10 mg tablet Take 1 tablet by mouth every 6 hours as needed (For chemotherapy induced nausea and vomiting). - hydrOXYzine pamoate (VISTARIL) 25 mg capsule TAKE 1 (ONE) CAPSULE BY MOUTH DAILY AT BEDTIME NEEDED FOR SLEEP - calcium carbonate/vitamin D3 (CALCIUM + D ORAL) Take 1 tablet by mouth once daily. - ginkgo biloba (GINKOBA ORAL) Take 120 mg by mouth once daily. - MULTI-VITAMIN ORAL Take 1 tablet by mouth once daily. - GLUCOSAMINE SULFATE (GLUCOSAMINE ORAL) Take 1 tablet by mouth once daily. - TURMERIC ROOT EXTRACT ORAL Take 450 mg by mouth once daily. Problem List As Of Date 09/14/2024 Noted Resolved Abnormal mammogram [R92.8] 04/01/2016 Malignant neoplasm of upper-outer quadrant of l*04/08/2016 Fat necrosis [M79.89] 01/06/2017 BRCA2 gene mutation positive [Z15.01, Z15.09] 04/07/2024 History of ovarian cancer [Z85.43] 04/07/2024 Pulmonary embolus (HCC) [I26.99] 04/07/2024 Carcinoma of left breast metastatic to bone (HC*05/04/2024 Malignant pleural effusion [J91.0] 05/04/2024 Malignant neoplasm metastatic to brain (HCC) [C*06/07/2024 Dehydration [E86.0] 08/11/2024 Encounter Status:Closed by SHANON BRUNO on 09/15/24 SD Observed: 09/06/2024 12:00 AM Status: COMPLETED Source: [facility] Telephone ([employer]) TIFFANIEJOYCE ([id number]) 1955 F Date Time Provider Department 09/06/24 JOHN ALBRIGHT During your visit today, we recorded the following information about you: Darwin Marroquin Paz 09/06/2024 8:39 AM Addendum Patient states lorazepam is not helping her sleep. She is asking for another medication. Please advise. Also Janey from [facility] contacted office states pt. Was to get Pleurex catheter placed and pt. Does not feel comfortable taking care of it , so she didn't have done. No family lives close and her insurance will cover 20 home visits. Janey RN would like for Dr. Albright to discuss palliative care VS hospice with pt.. Notes pt. Becoming weaker. Has OV with Dr. Albright Next week. ELA Ray Kara, LPN 09/06/2024 4:23 PM Addendum States she tried taking the lorazepam at bedtime, it helped her sleep for "3 nights" but then "it quite working." She is wondering if there is something else she can try for sleep. She has difficulty staying asleep. She states she tried Ambien some years ago it did help but PCP did not want her on it fpc. They gave her hydroxyzine but "that doesn't help" She states her son is taking Sonata 5 mg ELA Tan Paul A, DO 09/07/2024 12:15 PM Signed Try olanzapine. Start with 1 tablet about 1/2 hour before bedtime and if that does not help then 2 tablets. DO Kd Bautista Pamela S, LPN 09/07/2024 1:14 PM Signed Spoke with pt. Informed we are going to try Olanzapine Start with 1 tablet about 1/2 hour before bedtime and if that does not help then 2 tablets. pt. Voiced understanding. Joyce Mejía LPN Allergies As of Date: 09/06/2024 Noted Allergy Reaction ZOFRAN (ONDANSETRON) 07/23/2024 14 - Other: See Comments Comments: Migraines. DEMERAL (MEPERIDINE) 04/01/2016 8 - GI Upset PERCOCET (OXYCODONE-ACETAMINOPHEN)04/01/2016 8 - GI Upset Date Reviewed: 08/24/2024 Reviewed by: Paulina Jay Ma, MA - Fully Assessed Reason for Visit: Medication Problem [65] Order(s):OLANZapine (ZYPREXA) 5 mg tabletTake 1-2 tablets by mouth daily at bedtime.Disp: 60 tabletRfl: 0 Prescriptions as of 09/07/2024 - OLANZapine (ZYPREXA) 5 mg tablet Take 1-2 tablets by mouth daily at bedtime. - sertraline (ZOLOFT) 25 mg tablet Take 1 tablet by mouth once daily. - LORazepam (ATIVAN) 0.5 mg Take 1-2 tablets by mouth three times a day as needed for up to 15 days. - apixaban (ELIQUIS) 5 mg tab(s) Take 1 tablet by mouth two times a day. - elacestrant (ORSERDU) 345 mg tablet Take 1 tablet (345 mg) by mouth once daily. with a meal. - prochlorperazine (COMPAZINE) 10 mg tablet Take 1 tablet by mouth every 6 hours as needed (For chemotherapy induced nausea and vomiting). - hydrOXYzine pamoate (VISTARIL) 25 mg capsule TAKE 1 (ONE) CAPSULE BY MOUTH DAILY AT BEDTIME NEEDED FOR SLEEP - calcium carbonate/vitamin D3 (CALCIUM + D ORAL) Take 1 tablet by mouth once daily. - ginkgo biloba (GINKOBA ORAL) Take 120 mg by mouth once daily. - MULTI-VITAMIN ORAL Take 1 tablet by mouth once daily. - GLUCOSAMINE SULFATE (GLUCOSAMINE ORAL) Take 1 tablet by mouth once daily. - TURMERIC ROOT EXTRACT ORAL Take 450 mg by mouth once daily. Problem List As Of Date 09/06/2024 Noted Resolved Abnormal mammogram [R92.8] 04/01/2016 Malignant neoplasm of upper-outer quadrant of l*04/08/2016 Fat necrosis [M79.89] 01/06/2017 BRCA2 gene mutation positive [Z15.01, Z15.09] 04/07/2024 History of ovarian cancer [Z85.43] 04/07/2024 Pulmonary embolus (HCC) [I26.99] 04/07/2024 Carcinoma of left breast metastatic to bone (HC*05/04/2024 Malignant pleural effusion [J91.0] 05/04/2024 Malignant neoplasm metastatic to brain (HCC) [C*06/07/2024 Dehydration [E86.0] 08/11/2024 Prescriptions ordered this encounter Disp Refills Start End OLANZAPINE 5 MG TABLET 60 t* 0 09/07/2024 Route: ORAL Sig: Take 1-2 tablets by mouth daily at bedtime. Encounter Status:Closed by JOYCE MEJÍA on 09/07/24 CNPCynthia Observed: 08/30/2024 12:00 AM Status: COMPLETED Source: [facility] Telephone ([employer]) JOYCE ROBLES ([id number]) 1955 F Date Time Provider Department 08/30/24 PRETTY SHEFFIELD During your visit today, we recorded the following information about you: Pretty Sheffield RN 08/30/2024 1:[address] Albright asked to call patient for an update. Call to patient, message left to call me back and phone/contact number provided. VÍCTOR Mccurdy Cathleen, RN 08/30/2024 3:48 PM Signed [facility] Care Coordination FOLLOW-UP NOTE Patient identified by name and date of . YES Spoke to patient Summary: (Reason for follow-up) Patient returns call. States she feels stronger physically but she feels very anxious and overwhelmed about everything. She feels "weak and shaky" She is questioning whether she is strong enough for surgery. She has concerns about the Pleurex catheter. Allowed patient time to express her thoughts, encouraged her to write down her questions for her appointment with surgeon this week. She also c/o of not being able to sleep. States she has Rx for Hydroxyzine but it is making her have a dry mouth and somewhat constipated. She has a BM everyday but it is small and hard. She wants to stop the Hydroxyzine and wondering if there is something else to take? Her main issue is anxiety, settling her brain, falling asleep and staying asleep. She feels foggy and having a hard time concentrating during the day. She is aware that I will discuss above with Dr. Albright and call her back. Patient verbalized when to seek Medical Attention and an understanding of after- hours phone number and process: Yes Care Coordination Plan: Will update Dr. Albright and call back with further instructions. Pretty Sheffield RN August 30, 2024 John Albright DO 08/30/2024 3:52 PM Signed Start Zoloft 25 mg daily in the morning. Ativan 2 tablets about and hour before bed and 1-2 tablets every 8 hours as needed during the day. DO Yohannes Bautista Cathleen, RN 08/30/2024 4:47 PM Signed Call to patient, aware of 2 Rx's. She is agreeable to starting the Ativan but does not want to have to take more than she has to. She has heard from [facility] and thinks she will be able to get Ativan this evening to start at HS tonight. She also asks what to take for constipation. Discussed options of stool softener, pills or Miralax. Discussed daily dosing, either am or pm, whatever fits her schedule. Instructed to drink plenty of fluids to help also. 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 She denies further needs/questions at this time. Fatoumata Sheffield RN Allergies As of Date: 08/30/2024 Noted Allergy Reaction ZOFRAN (ONDANSETRON) 07/23/2024 14 - Other: See Comments Comments: Migraines. DEMERAL (MEPERIDINE) 04/01/2016 8 - GI Upset PERCOCET (OXYCODONE-ACETAMINOPHEN)04/01/2016 8 - GI Upset Date Reviewed: 08/24/2024 Reviewed by: Paulina Jay Ma, MA - Fully Assessed Reason for Visit: Care Coordination [3491] Cmt: Follow Up Primary Visit Diagnosis:Malignant neoplasm of upper-outer quadrant of left breast in female, estrogen receptor positive (HCC) [C50.412, Z17.0] Other Visit Diagnoses: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) [C50.912, C79.51] Malignant neoplasm metastatic to brain (HCC) [C79.31] Malignant pleural effusion [J91.0] Order(s):sertraline (ZOLOFT) 25 mg tabletTake 1 tablet by mouth once daily.Disp: 30 tabletRfl: 2 LORazepam (ATIVAN) 0.5 mgTake 1-2 tablets by mouth three times a day as needed for up to 15 days.Disp: 90 tabletRfl: 0 Prescriptions as of 08/31/2024 - sertraline (ZOLOFT) 25 mg tablet Take 1 tablet by mouth once daily. - LORazepam (ATIVAN) 0.5 mg Take 1-2 tablets by mouth three times a day as needed for up to 15 days. - apixaban (ELIQUIS) 5 mg tab(s) Take 1 tablet by mouth two times a day. - elacestrant (ORSERDU) 345 mg tablet Take 1 tablet (345 mg) by mouth once daily. with a meal. - prochlorperazine (COMPAZINE) 10 mg tablet Take 1 tablet by mouth every 6 hours as needed (For chemotherapy induced nausea and vomiting). - hydrOXYzine pamoate (VISTARIL) 25 mg capsule TAKE 1 (ONE) CAPSULE BY MOUTH DAILY AT BEDTIME NEEDED FOR SLEEP - calcium carbonate/vitamin D3 (CALCIUM + D ORAL) Take 1 tablet by mouth once daily. - ginkgo biloba (GINKOBA ORAL) Take 120 mg by mouth once daily. - MULTI-VITAMIN ORAL Take 1 tablet by mouth once daily. - GLUCOSAMINE SULFATE (GLUCOSAMINE ORAL) Take 1 tablet by mouth once daily. - TURMERIC ROOT EXTRACT ORAL Take 450 mg by mouth once daily. Problem List As Of Date 08/30/2024 Noted Resolved Abnormal mammogram [R92.8] 04/01/2016 Malignant neoplasm of upper-outer quadrant of l*04/08/2016 Fat necrosis [M79.89] 01/06/2017 BRCA2 gene mutation positive [Z15.01, Z15.09] 04/07/2024 History of ovarian cancer [Z85.43] 04/07/2024 Pulmonary embolus (HCC) [I26.99] 04/07/2024 Carcinoma of left breast metastatic to bone (HC*05/04/2024 Malignant pleural effusion [J91.0] 05/04/2024 Malignant neoplasm metastatic to brain (HCC) [C*06/07/2024 Dehydration [E86.0] 08/11/2024 Prescriptions ordered this encounter Disp Refills Start End SERTRALINE 25 MG TABLET 30 t* 2 08/30/2024 Route: ORAL Sig: Take 1 tablet by mouth once daily. LORAZEPAM 0.5 MG TABLET 90 t* 0 08/30/2024 09/14/2024 Route: ORAL Sig: Take 1-2 tablets by mouth three times a day as needed for up to 15 days. Encounter Status:Closed by PRETTY SHEFFIELD on 08/31/24 SD Observed: 08/26/2024 12:00 AM Status: COMPLETED Source: [facility] Telephone (HEMAWS) JOYCE ROBLES ([id number]) 1955 F Date Time Provider Department 08/26/24 JOHN ALBRIGHT During your visit today, we recorded the following information about you: Paz Parker 08/26/2024 2:04 PM Signed Patient is scheduled to see Dr. Roger on 08/31 and is aware of appointment. She states she received a call from Dr. Hernandez's office out of [facility] regarding a referral from Dr. Albright's office. Patient is asking what this would be for. Please advise. Shanon Bruno LPN 08/26/2024 2:53 PM Signed Mary from [facility] office calls stating pt denied offer for apt this week, will take consult on 2/19/25. Pt has a thoracentesis scheduled for Wednesday 08/30. She has not decided if she wants the PleurX or not. ELA Tan Amber, RN 08/26/2024 2:59 PM Signed Spoke to patient. Informed of Dr. Albright's response, stated understanding. Patient will keep appointment with Dr. Hernandez on 09/01. PSS- please cancel appointment with Dr. Roger on 08/31. Thank you. VÍCTOR Magallon, Paz 08/26/2024 3:18 PM Signed 08/31 canceled Jimmie Crews RN 08/26/2024 3:53 PM Signed Patient called and left a VM stating she was informed by the [employer] that she does not need to hold the eliquis before the thoracentesis. Dr. Albright informed, stated understanding and stated that she can follow the instructions given by the thoracentesis team. Patient informed. Jimmie Crews RN Allergies As of Date: 08/26/2024 Noted Allergy Reaction ZOFRAN (ONDANSETRON) 07/23/2024 14 - Other: See Comments Comments: Migraines. DEMERAL (MEPERIDINE) 04/01/2016 8 - GI Upset PERCOCET (OXYCODONE-ACETAMINOPHEN)04/01/2016 8 - GI Upset Date Reviewed: 08/24/2024 Reviewed by: Paulina Jay Ma, JACKSON - Fully Assessed Reason for Visit: Patient Question [7537] Prescriptions as of 08/26/2024 - apixaban (ELIQUIS) 5 mg tab(s) Take 1 tablet by mouth two times a day. - elacestrant (ORSERDU) 345 mg tablet Take 1 tablet (345 mg) by mouth once daily. with a meal. - prochlorperazine (COMPAZINE) 10 mg tablet Take 1 tablet by mouth every 6 hours as needed (For chemotherapy induced nausea and vomiting). - hydrOXYzine pamoate (VISTARIL) 25 mg capsule TAKE 1 (ONE) CAPSULE BY MOUTH DAILY AT BEDTIME NEEDED FOR SLEEP - calcium carbonate/vitamin D3 (CALCIUM + D ORAL) Take 1 tablet by mouth once daily. - ginkgo biloba (GINKOBA ORAL) Take 120 mg by mouth once daily. - MULTI-VITAMIN ORAL Take 1 tablet by mouth once daily. - GLUCOSAMINE SULFATE (GLUCOSAMINE ORAL) Take 1 tablet by mouth once daily. - TURMERIC ROOT EXTRACT ORAL Take 450 mg by mouth once daily. Problem List As Of Date 08/26/2024 Noted Resolved Abnormal mammogram [R92.8] 04/01/2016 Malignant neoplasm of upper-outer quadrant of l*04/08/2016 Fat necrosis [M79.89] 01/06/2017 BRCA2 gene mutation positive [Z15.01, Z15.09] 04/07/2024 History of ovarian cancer [Z85.43] 04/07/2024 Pulmonary embolus (HCC) [I26.99] 04/07/2024 Carcinoma of left breast metastatic to bone (HC*05/04/2024 Malignant pleural effusion [J91.0] 05/04/2024 Malignant neoplasm metastatic to brain (HCC) [C*06/07/2024 Dehydration [E86.0] 08/11/2024 Encounter Status:Closed by JIMMIE CREWS on 08/26/24 PROGRESS Observed: 08/25/2024 5:05 PM Status: COMPLETED Source: [facility] HNO ID: [id number] Author: IRMA SAWYER [facility] Service: ? Author Type: ? Type: Progress Notes Filed: 09/13/2024 17:54 Note Text: [facility] Discontinuation Assessment: Disease group: Oral Oncology/Hematology Medication: ORSERDU 345 MG TABLET Discontinue reason: Patient assistance program enrollment and Change of pharmacy Patient has been enrolled to receive free Orserdu through the [employer] ARC Program with approval dates 09/09/24 through 07/13/25. [facility] ARC program contact number is [phone]. The medication will now ship through their contracted dispensing pharmacy, [facility], phone number [phone]. [facility] initiates free drug copay assistance for new medications as a one time courtesy. Re-enrollment should be facilitated by the treating physician's office. We will assist with obtaining PA renewal letters if/when requested by office via new prescription that can be sent to our pharmacy. No further action is needed by [facility] at this time. Sharita Sawyer, PharmD Clinical Pharmacist, Oncology [facility] P: , F: Pool: P CC [facility] Pool #: [id number] PROGRESS Observed: 08/25/2024 5:05 PM Status: COMPLETED Source: [facility] HNO ID: [id number] Author: ?, ?, ? Service: ? Author Type: ? Type: Progress Notes Filed: 09/06/2024 13:48 Note Text: Completed application for free Orserdu submitted to [facility] via fax #[phone] for review. Estimated turnaround for review of the application (7-10 business days). [facility] will update encounter with any direct updates received from the program. Karishma Archer PROGRESS Observed: 08/25/2024 5:05 PM Status: COMPLETED Source: [facility] HNO ID: [id number] Author: ?, ?, ? Service: ? Author Type: ? Type: Progress Notes Filed: 08/25/2024 17:16 Note Text: [facility] received prescription(s) for Orserdu from Dr. Albright's office. Benefits investigation was conducted, indicating that a prior authorization is required by patient's insurance plan with [employer]. Encounter will be updated once prior authorization has been submitted by [facility]. Sharita Kc CPhT [facility], Oncology P: / F: PROGRESS Observed: 08/25/2024 5:05 PM Status: COMPLETED Source: [facility] HNO ID: [id number] Author: IRMA SAWYER nini Service: ? Author Type: Registered Nurse Type: Progress Notes Filed: 08/30/2024 10:20 Note Text: [facility] received new pharmacy coverage information for this patient. Attempted to initiate PA via CMM ([place]: [id number]) and received notification "Drug is covered by current benefit plan. No further PA activity needed", indicating that a prior authorization is not required at this time per patient's plan with [employer] medicare. Prescriptions will now be processed through [facility] for determination of next steps. ANUEL Olson RN Addendum August 30, 2024 10:18 AM : The first copay is high ~$1128 due to the $2000 maximum out of pocket limit or cap on prescription drug expenses. After this fill the patient has reached their cap, and it is expected his/her copays will be $0 thereafter. There is no funding available for patient's diagnosis at this time. Patient will be assessed for eligibility to [facility] ARC Assistance Program. Note will be updated once pt is contacted. The new M3P program will also be discussed as appropriate for patients eligible as an additional option to pursue. Irma Sawyer, GuyD Clinical Pharmacist, Oncology [facility] P: , F: Pool: P [facility] Pool #: [id number] CNPN Observed: 08/25/2024 12:00 AM Status: COMPLETED Source: [facility] Telephone (NELIDA) JOYCE ROBLES ([id number]) 1955 F Date Time Provider Department 08/25/24 JIMMIE CREWS During your visit today, we recorded the following information about you: Jimmie Crews RN 08/25/2024 3:26 PM Signed Check-out Note D/C gemcitabine tx OV in three weeks CBC/CMP Referral surgery for pleurex cath F/U pending disucssion with pharm S/weekly to discuss pt. Asst. Hbeert Patient called the office and left a VM asking about her appointments scheduled for 09/01 and 09/02. Please see AVS from yesterday, copied in this note, and contact patient to schedule an OV with Dr. Albright in 3 weeks. Thank you. VÍCTOR Magallon Brandy 08/25/2024 4:06 PM Signed I called and spoke to Joyce and let her know all appointments have been canceled except her follow-up with with lab work on 09/15/24, she confirmed this information. I then scheduled with her the consult to general surgery, she is scheduled to see on 08/31/24 @ 1:00pm Patient is requesting to speak with Jimmie because she has concerns about the cath placement Mary Gallegos Jimmie Wick, RN 08/25/2024 4:18 PM Signed Spoke to patient. Provided active listening and emotional support. Encouraged patient to keep her appointment with Dr. Roger and to bring a list of questions/concerns with her so Dr. Roger can hopefully help alleviate some of her concerns. Patient will call our office if she decides not to have the Pleurx catheter placed. Jimmie Crews RN Allergies As of Date: 08/25/2024 Noted Allergy Reaction ZOFRAN (ONDANSETRON) 07/23/2024 14 - Other: See Comments Comments: Migraines. 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 - elacestrant (ORSERDU) 345 mg tablet Take 1 tablet (345 mg) by mouth once daily. with a meal. - prochlorperazine (COMPAZINE) 10 mg tablet Take 1 tablet by mouth every 6 hours as needed (For chemotherapy induced nausea and vomiting). - hydrOXYzine pamoate (VISTARIL) 25 mg capsule TAKE 1 (ONE) CAPSULE BY MOUTH DAILY AT BEDTIME NEEDED FOR SLEEP - calcium carbonate/vitamin D3 (CALCIUM + D ORAL) Take 1 tablet by mouth once daily. - ginkgo biloba (GINKOBA ORAL) Take 120 mg by mouth once daily. - MULTI-VITAMIN ORAL Take 1 tablet by mouth once daily. - GLUCOSAMINE SULFATE (GLUCOSAMINE ORAL) Take 1 tablet by mouth once daily. - TURMERIC ROOT EXTRACT ORAL Take 450 mg by mouth once daily. Problem List As Of Date 08/25/2024 Noted Resolved Abnormal mammogram [R92.8] 04/01/2016 Malignant neoplasm of upper-outer quadrant of l*04/08/2016 Fat necrosis [M79.89] 01/06/2017 BRCA2 gene mutation positive [Z15.01, Z15.09] 04/07/2024 History of ovarian cancer [Z85.43] 04/07/2024 Pulmonary embolus (HCC) [I26.99] 04/07/2024 Carcinoma of left breast metastatic to bone (HC*05/04/2024 Malignant pleural effusion [J91.0] 05/04/2024 Malignant neoplasm metastatic to brain (HCC) [C*06/07/2024 Dehydration [E86.0] 08/11/2024 Encounter Status:Closed by JIMMIE CREWS on 08/25/24 CNOVSP Observed: 08/24/2024 10:10 AM Status: COMPLETED Source: [facility] Visit (SP) Office (NELIDA) JOYCE ROBLES ([id number]) 1955 F Date Time Provider Department 08/24/24 10:10 AM JOHN ALBRIGHT During your visit today, we recorded the following information about you: Temperature Pulse Blood pressure Weight 98 degrees 116/minute 121/82 74.4 kg John Albright DO 08/25/2024 8:17 AM Signed Oncologic problem(s): 1) MBC. 2) History of ovarian cancer. 3) Germline BRCA2 mutation. HPI: The patient is a 69-year-old female with a past medical history as [...] 2016. The pathology demonstrated a 2.5 cm ER/IA positive, HER2 negative tumor in the left breast with micro metastasis in 1 of 3 sentinel lymph nodes (0.8 mm). Overall grade was 3. Lymphovascular invasion was present. Closest margin was 2 mm from anterior margin. ER was positive greater than 95%. IA positive greater than 95% with moderate to strong staining intensity. HER2 was equivocal 1-2+; nonamplified by FISH testing. She declined adjuvant chemotherapy but received adjuvant radiation. Was started on AI with anastrozole beginning 10/2016. Was found to have germline BRCA2 mutation. She had declined prophylactic mastectomy and had been undergoing screening for breast cancer. Recently presented to [facility] on 03/12/2024 with a complaint of increasing shortness of breath. Prior to that she had been on a 10-day trip to [place]. CTA of the chest same day demonstrated [...] on 03/22/2024. Most recent screening mammogram 01/2024. [facility]. Son in [place]--helps with house and yard. Daughter in [place]. about 3 years ago. Prior therapy: 1) Anastrozole adjuvant setting--began 10/2016. 2) Letrozole. 3) Olaparib for metastatic disease--didn't tolerate. Current therapy: 1) Gemcitabine. C1D1 07/23/2024. Presents for ongoing oncologic management. Interim history: Not tolerating gemcitabine very well overall. Significant weight loss since starting. She feels malaise nearly constantly. Continues to require high volume right-sided thoracentesis. Denies pain other than some occasional pain in the right mid back. PAST MEDICAL HISTORY Diagnosis Date Breast cancer (HCC) Essential hypertension Hypoxemia Ovarian cancer (HCC) Pulmonary embolism (HCC) Osteoporosis. Had been on alendronate. PAST SURGICAL HISTORY Procedure Laterality Date BSO W/TIESHA AND OMENECTOMY FOR MALIGNANCY 07/14/2012 BX BREAST W/DEVICE 1ST LESION ULTRASOUND GUID Left 04/04/2016 U/S Bx outer mid left breast BX/EXC LYMPH NODE OPEN DEEP AXILLARY NODE Left 04/29/2016 HYSTERECTOMY HX 2009 LX PARTIAL COLECTOMY 07/14/2012 MASTECTOMY, PARTIAL Left 04/29/2016 PAST SURGICAL HISTORY OF Left ablation of vein of left leg for venous reflux prochlorperazine (COMPAZINE) 10 mg tablet Take 1 tablet by mouth every 6 hours as needed (For chemotherapy induced nausea and vomiting). hydrOXYzine pamoate (VISTARIL) 25 mg capsule TAKE 1 (ONE) CAPSULE BY MOUTH DAILY AT BEDTIME NEEDED FOR SLEEP calcium carbonate/vitamin D3 (CALCIUM + D ORAL) Take 1 tablet by mouth once daily. apixaban (ELIQUIS) 5 mg tab(s) Take 5 mg by mouth two times a day. hydroCHLOROthiazide 12.5 mg tablet Take 12.5 mg by mouth every morning. ginkgo biloba (GINKOBA ORAL) Take 120 mg by mouth once daily. MULTI-VITAMIN ORAL Take 1 tablet by mouth once daily. GLUCOSAMINE SULFATE (GLUCOSAMINE ORAL) Take 1 tablet by mouth once daily. TURMERIC ROOT EXTRACT ORAL Take 450 mg by mouth once daily. ALLERGIES Allergen Reactions Zofran [Ondansetron] Other: See Comments Migraines. Demeral [Meperidine] GI Upset Percocet [Oxycodone* GI [...] Normal mood. PHYSICAL EXAM: Vitals: Blood pressure 121/82, pulse 116, temperature 36.7 ?C (98 ?F), temperature source Temporal, weight 74.4 kg (164 lb), SpO2 100%. Fatigued-appearing and in no acute distress. EYES: Sclerae are anicteric bilaterally. LYMPHATIC: There is no palpable adenopathy. RESPIRATORY: Diminished breath sounds right base. CARDIOVASCULAR: Rhythm is regular. BREAST: Deferred. ABDOMEN: The abdomen is nondistended. Extremities: No swelling or edema. SKIN: No jaundice. LABS: Most recent lab work from 03/13/2024 from [facility] reviewed. Hemoglobin 13.5 g/dL. White count 6900. Platelet count 171,000. Chemistry significant for serum creatinine 0.52 mg/dL. Calcium 8.7 mg/dL. Magnesium 1.7 mg/dL. Albumin low at 2.6 g/dL. Total protein 5.8 g/dL. Hepatocellular enzymes, alkaline phosphatase and total bilirubin normal. LDH 217. IMAGING: PET [facility]: PET scan demonstrated skeletal metastases including right iliac wing, left acetabulum, left sacral parris in the region of the fifth thoracic vertebra. There was also increased tracer concentration in the left hemithorax at the pleural interface fulfilling quantitative criteria for viable neoplasm. MRI brain [facility]: Small focal enhancing nodule measuring 4 mm along the posterior lateral aspect of the right occipital lobe with minimal surrounding edema. Genetic testing: BRCA2 mutation. 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 Elacestrant. -PIK3CA mutation. Alpelisib plus fulvestrant or capivaertib plus fulvestrant -BRCA2 mutation. -TP53 mutation (0.2%). 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 Assessment: -Metastatic recurrence of pT2b N1 WI (SN) ER/IA positive, HER2 negative invasive ductal carcinoma of the left breast. -Right-sided malignant pleural effusion. -History of ovarian cancer. -Not tolerating gemcitabine. -Reviewed PET scan. Progression of disease. -We discussed changing therapy to elacestrant. I had again recommended paclitaxel but she said she could not deal with the stress of losing her hair in addition to everything else she is experiencing right now. -Also discussed Pleurx catheter. High-volume thoracentesis is also making her very drained and removing smaller volumes more frequently may be of help to her. Additionally, she is holding apixaban on a frequent basis for thoracentesis. Plan: -Rx elacestrant. -Referral to Dr. Hernandez for Pleurx catheter. -MRI brain per neurosurgery. -Continue biweekly thoracentesis for now. (I27.82) Other chronic pulmonary embolism without acute cor pulmonale (HCC) Assessment: -Tolerating apixaban well. Plan: -Continue apixaban. Portions of this documentation were copied and pasted from my previous office visit note dated 07/20/2024 in order to provide a cohesive continuity of the history. The note has been reviewed and edited and updated as necessary. John Albright, DO Allergies As of Date: 08/24/2024 Noted Allergy Reaction ZOFRAN (ONDANSETRON) 07/23/2024 14 - Other: See Comments Comments: Migraines. DEMERAL (MEPERIDINE) 04/01/2016 8 - GI Upset PERCOCET (OXYCODONE-ACETAMINOPHEN)04/01/2016 8 - GI Upset Date Reviewed: 08/24/2024 Reviewed by: Paulina Jay Ma, JACKSON - Fully Assessed Reason for Visit: Established Patient [175] Primary Visit Diagnosis: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) [C50.912, C79.51] Other Visit Diagnoses:Malignant neoplasm metastatic to brain (HCC) [C79.31] Malignant pleural effusion [J91.0] Other chronic pulmonary embolism without acute cor pulmonale (HCC) [I27.82] Order(s):apixaban (ELIQUIS) 5 mg tab(s)Take 1 tablet by mouth two times a day.Disp: 60 tabletRfl: 5 CONSULT TO GENERAL SURGERY [9090] Order #: [id number]: 1 FUTURE elacestrant (ORSERDU) 345 mg tabletTake 1 tablet (345 mg) by mouth once daily. with a meal.Disp: 30 tabletRfl: 5 Level of Service: OFFICE/OUTPATIENT ESTABLISHED MOD MDM 30 MIN [52499] Additional E/M codes: VISIT CPLX INHERENT EANDM ASSOC WITH MED * Follow-up and Disposition History for Encounter Date Provider Department Center 08/24/2024 [id number] ALBRIGHT [facility] Prescriptions as of 08/25/2024 - apixaban (ELIQUIS) 5 mg tab(s) Take 1 tablet by mouth two times a day. - elacestrant (ORSERDU) 345 mg tablet Take 1 tablet (345 mg) by mouth once daily. with a meal. - prochlorperazine (COMPAZINE) 10 mg tablet Take 1 tablet by mouth every 6 hours as needed (For chemotherapy induced nausea and vomiting). - hydrOXYzine pamoate (VISTARIL) 25 mg capsule TAKE 1 (ONE) CAPSULE BY MOUTH DAILY AT BEDTIME NEEDED FOR SLEEP - calcium carbonate/vitamin D3 (CALCIUM + D ORAL) Take 1 tablet by mouth once daily. - ginkgo biloba (GINKOBA ORAL) Take 120 mg by mouth once daily. - MULTI-VITAMIN ORAL Take 1 tablet by mouth once daily. - GLUCOSAMINE SULFATE (GLUCOSAMINE ORAL) Take 1 tablet by mouth once daily. - TURMERIC ROOT EXTRACT ORAL Take 450 mg by mouth once daily. Problem List As Of Date 08/24/2024 Noted Resolved Abnormal mammogram [R92.8] 04/01/2016 Malignant neoplasm of upper-outer quadrant of l*04/08/2016 Fat necrosis [M79.89] 01/06/2017 BRCA2 gene mutation positive [Z15.01, Z15.09] 04/07/2024 History of ovarian cancer [Z85.43] 04/07/2024 Pulmonary embolus (HCC) [I26.99] 04/07/2024 Carcinoma of left breast metastatic to bone (HC*05/04/2024 Malignant pleural effusion [J91.0] 05/04/2024 Malignant neoplasm metastatic to brain (HCC) [C*06/07/2024 Dehydration [E86.0] 08/11/2024 Encounter Status:Closed by JOHN ALBRIGHT on 08/25/24 PROGRESS Observed: 08/24/2024 10:10 AM Status: COMPLETED Source: [facility] HNO ID: [id number] Author: JOHN ALBRIGHT DO Service: ? Author Type: Physician Type: Progress Notes Filed: 08/25/2024 08:17 Note Text: Oncologic problem(s): 1) MBC. 2) History of ovarian cancer. 3) Germline BRCA2 mutation. HPI: The patient is a 69-year-old female with a past medical history as [...] 2016. The pathology demonstrated a 2.5 cm ER/IA positive, HER2 negative tumor in the left breast with micro metastasis in 1 of 3 sentinel lymph nodes (0.8 mm). Overall grade was 3. Lymphovascular invasion was present. Closest margin was 2 mm from anterior margin. ER was positive greater than 95%. IA positive greater than 95% with moderate to strong staining intensity. HER2 was equivocal 1-2+; nonamplified by FISH testing. She declined adjuvant chemotherapy but received adjuvant radiation. Was started on AI with anastrozole beginning 10/2016. Was found to have germline BRCA2 mutation. She had declined prophylactic mastectomy and had been undergoing screening for breast cancer. Recently presented to [facility] on 03/12/2024 with a complaint of increasing shortness of breath. Prior to that she had been on a 10-day trip to [place]. CTA of the chest same day demonstrated [...] on 03/22/2024. Most recent screening mammogram 01/2024. Lives in town. Son in [place]--helps with house and yard. Daughter in [place]. about 3 years ago. Prior therapy: 1) Anastrozole adjuvant setting--began 10/2016. 2) Letrozole. 3) Olaparib for metastatic disease--didn't tolerate. Current therapy: 1) Gemcitabine. C1D1 07/23/2024. Presents for ongoing oncologic management. Interim history: Not tolerating gemcitabine very well overall. Significant weight loss since starting. She feels malaise nearly constantly. Continues to require high volume right-sided thoracentesis. Denies pain other than some occasional pain in the right mid back. PAST MEDICAL HISTORY Diagnosis Date Breast cancer (HCC) Essential hypertension Hypoxemia Ovarian cancer (HCC) Pulmonary embolism (HCC) Osteoporosis. Had been on alendronate. PAST SURGICAL HISTORY Procedure Laterality Date BSO W/TIESHA AND OMENECTOMY FOR MALIGNANCY 07/14/2012 BX BREAST W/DEVICE 1ST LESION ULTRASOUND GUID Left 04/04/2016 U/S Bx outer mid left breast BX/EXC LYMPH NODE OPEN DEEP AXILLARY NODE Left 04/29/2016 HYSTERECTOMY HX 2009 LX PARTIAL COLECTOMY 07/14/2012 MASTECTOMY, PARTIAL Left 04/29/2016 PAST SURGICAL HISTORY OF Left ablation of vein of left leg for venous reflux prochlorperazine (COMPAZINE) 10 mg tablet Take 1 tablet by mouth every 6 hours as needed (For chemotherapy induced nausea and vomiting). hydrOXYzine pamoate (VISTARIL) 25 mg capsule TAKE 1 (ONE) CAPSULE BY MOUTH DAILY AT BEDTIME NEEDED FOR SLEEP calcium carbonate/vitamin D3 (CALCIUM + D ORAL) Take 1 tablet by mouth once daily. apixaban (ELIQUIS) 5 mg tab(s) Take 5 mg by mouth two times a day. hydroCHLOROthiazide 12.5 mg tablet Take 12.5 mg by mouth every morning. ginkgo biloba (GINKOBA ORAL) Take 120 mg by mouth once daily. MULTI-VITAMIN ORAL Take 1 tablet by mouth once daily. GLUCOSAMINE SULFATE (GLUCOSAMINE ORAL) Take 1 tablet by mouth once daily. TURMERIC ROOT EXTRACT ORAL Take 450 mg by mouth once daily. ALLERGIES Allergen Reactions Zofran [Ondansetron] Other: See Comments Migraines. Demeral [Meperidine] GI Upset Percocet [Oxycodone* GI [...] Normal mood. PHYSICAL EXAM: Vitals: Blood pressure 121/82, pulse 116, temperature 36.7 ?C (98 ?F), temperature source Temporal, weight 74.4 kg (164 lb), SpO2 100%. Fatigued-appearing and in no acute distress. EYES: Sclerae are anicteric bilaterally. LYMPHATIC: There is no palpable adenopathy. RESPIRATORY: Diminished breath sounds right base. CARDIOVASCULAR: Rhythm is regular. BREAST: Deferred. ABDOMEN: The abdomen is nondistended. Extremities: No swelling or edema. SKIN: No jaundice. LABS: Most recent lab work from 03/13/2024 from [facility] reviewed. Hemoglobin 13.5 g/dL. White count 6900. Platelet count 171,000. Chemistry significant for serum creatinine 0.52 mg/dL. Calcium 8.7 mg/dL. Magnesium 1.7 mg/dL. Albumin low at 2.6 g/dL. Total protein 5.8 g/dL. Hepatocellular enzymes, alkaline phosphatase and total bilirubin normal. LDH 217. IMAGING: PET [facility]: PET scan demonstrated skeletal metastases including right [...] minimal surrounding edema. Genetic testing: BRCA2 mutation. 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 Elacestrant. -PIK3CA mutation. Alpelisib plus fulvestrant or capivaertib plus fulvestrant -BRCA2 mutation. -TP53 mutation (0.2%). 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 Assessment: -Metastatic recurrence of pT2b N1 WI (SN) ER/IA positive, HER2 negative invasive ductal carcinoma of the left breast. -Right-sided malignant pleural effusion. -History of ovarian cancer. -Not tolerating gemcitabine. -Reviewed PET scan. Progression of disease. -We discussed changing therapy to elacestrant. I had again recommended paclitaxel but she said she could not deal with the stress of losing her hair in addition to everything else she is experiencing right now. -Also discussed Pleurx catheter. High-volume thoracentesis is also making her very drained and removing smaller volumes more frequently may be of help to her. Additionally, she is holding apixaban on a frequent basis for thoracentesis. Plan: -Rx elacestrant. -Referral to Dr. Hernandez for Pleurx catheter. -MRI brain per neurosurgery. -Continue biweekly thoracentesis for now. (I27.82) Other chronic pulmonary embolism without acute cor pulmonale (HCC) Assessment: -Tolerating apixaban well. Plan: -Continue apixaban. Portions of this documentation were copied and pasted from my previous office visit note dated 07/20/2024 in order to provide a cohesive continuity of the history. The note has been reviewed and edited and updated as necessary. DO SD Bautsita Observed: 08/24/2024 12:00 AM Status: COMPLETED Source: [facility] Telephone (NELIDA) JOYCE ROBLES ([id number]) 1955 F Date Time Provider Department 08/24/24 TIFFANY RUIZ During your visit today, we recorded the following information about you: Tiffany Ruiz LISW 08/24/2024 11:24 AM Signed SOCIAL WORK FOLLOW UP NOTE: [facility] Date of service: August 24, 2024 Joyce Robles is being seen for a follow up social work visit. Today's visit includes: patient TOPICS ADDRESSED: SW met with pt and child care supervisor this date to discuss high OOP costs for Eliquis. Pt reports she has been paying approximately $800 for a 3 month supply. SW discussed with pt options for Eliquis assistance including patient assistance program. Per pt report, she exceeds the financial limit for assistance and is unable to apply. Sw and pt discussed the new 2024 Medicare $2,000 OOP cap for prescriptions. Pt reports this is doable for her financially and she will continue to pay her co-pay for Eliquis. No other needs identified at this time. PLAN: Continue follow up as needed F/U APPOINTMENT: PRN Assigned CHACORTA listed in Care Team tab: Yes IRINA Benavides Allergies As of Date: 08/24/2024 Noted Allergy Reaction ZOFRAN (ONDANSETRON) 07/23/2024 14 - Other: See Comments Comments: Migraines. DEMERAL (MEPERIDINE) 04/01/2016 8 - GI Upset PERCOCET (OXYCODONE-ACETAMINOPHEN)04/01/2016 8 - GI Upset Date Reviewed: 08/24/2024 Reviewed by: Paulina Jay Ma, JACKSON - Fully Assessed Reason for Visit: Social Work Services [507] Prescriptions as of 08/24/2024 - apixaban (ELIQUIS) 5 mg tab(s) Take 1 tablet by mouth two times a day. - prochlorperazine (COMPAZINE) 10 mg tablet Take 1 tablet by mouth every 6 hours as needed (For chemotherapy induced nausea and vomiting). - hydrOXYzine pamoate (VISTARIL) 25 mg capsule TAKE 1 (ONE) CAPSULE BY MOUTH DAILY AT BEDTIME NEEDED FOR SLEEP - calcium carbonate/vitamin D3 (CALCIUM + D ORAL) Take 1 tablet by mouth once daily. - ginkgo biloba (GINKOBA ORAL) Take 120 mg by mouth once daily. - MULTI-VITAMIN ORAL Take 1 tablet by mouth once daily. - GLUCOSAMINE SULFATE (GLUCOSAMINE ORAL) Take 1 tablet by mouth once daily. - TURMERIC ROOT EXTRACT ORAL Take 450 mg by mouth once daily. Problem List As Of Date 08/24/2024 Noted Resolved Abnormal mammogram [R92.8] 04/01/2016 Malignant neoplasm of upper-outer quadrant of l*04/08/2016 Fat necrosis [M79.89] 01/06/2017 BRCA2 gene mutation positive [Z15.01, Z15.09] 04/07/2024 History of ovarian cancer [Z85.43] 04/07/2024 Pulmonary embolus (HCC) [I26.99] 04/07/2024 Carcinoma of left breast metastatic to bone (HC*05/04/2024 Malignant pleural effusion [J91.0] 05/04/2024 Malignant neoplasm metastatic to brain (HCC) [C*06/07/2024 Dehydration [E86.0] 08/11/2024 Encounter Status:Closed by TIFFANY RUIZ on 08/24/24 SD Observed: 08/23/2024 12:00 AM Status: COMPLETED Source: [facility] Telephone (HEMAWS) JOYCE ROBLES ([id number]) 1955 F Date Time Provider Department 08/23/24 JOHN ALBRIGHT During your visit today, we recorded the following information about you: John Albright DO 08/23/2024 1:36 PM Signed She had another thoracentesis today, right sided 1500 cc removed. I would like to see her for an office visit tomorrow at 10:10 AM. Block time for established complex. Need to discuss plan to get the cancer under better control. Also, she sent a [employer] message so that can be answered by letting her know we're going to make an appointment for tomorrow. DO Diamond Bautista Naomi 08/23/2024 2:28 PM Signed Spoke to pt and she is scheduled for tomorrow w Dr Albright at [address] [facility]. Almita Hernandez Allergies As of Date: 08/23/2024 Noted Allergy Reaction ZOFRAN (ONDANSETRON) 07/23/2024 14 - Other: See Comments Comments: Migraines. DEMERAL (MEPERIDINE) 04/01/2016 8 - GI Upset PERCOCET (OXYCODONE-ACETAMINOPHEN)04/01/2016 8 - GI Upset Date Reviewed: 08/19/2024 Reviewed by: Jody Quintanilla RN - Fully Assessed Reason for Visit: Follow Up [171] Prescriptions as of 08/23/2024 - prochlorperazine (COMPAZINE) 10 mg tablet Take 1 tablet by mouth every 6 hours as needed (For chemotherapy induced nausea and vomiting). - hydrOXYzine pamoate (VISTARIL) 25 mg capsule TAKE 1 (ONE) CAPSULE BY MOUTH DAILY AT BEDTIME NEEDED FOR SLEEP - calcium carbonate/vitamin D3 (CALCIUM + D ORAL) Take 1 tablet by mouth once daily. - apixaban (ELIQUIS) 5 mg tab(s) Take 5 mg by mouth two times a day. - hydroCHLOROthiazide 12.5 mg tablet Take 12.5 mg by mouth every morning. - ginkgo biloba (GINKOBA ORAL) Take 120 mg by mouth once daily. - MULTI-VITAMIN ORAL Take 1 tablet by mouth once daily. - GLUCOSAMINE SULFATE (GLUCOSAMINE ORAL) Take 1 tablet by mouth once daily. - TURMERIC ROOT EXTRACT ORAL Take 450 mg by mouth once daily. Problem List As Of Date 08/23/2024 Noted Resolved Abnormal mammogram [R92.8] 04/01/2016 Malignant neoplasm of upper-outer quadrant of l*04/08/2016 Fat necrosis [M79.89] 01/06/2017 BRCA2 gene mutation positive [Z15.01, Z15.09] 04/07/2024 History of ovarian cancer [Z85.43] 04/07/2024 Pulmonary embolus (HCC) [I26.99] 04/07/2024 Carcinoma of left breast metastatic to bone (HC*05/04/2024 Malignant pleural effusion [J91.0] 05/04/2024 Malignant neoplasm metastatic to brain (HCC) [C*06/07/2024 Dehydration [E86.0] 08/11/2024 Encounter Status:Closed by ALMITA HERNANDEZ on 08/23/24 PROGRESS Observed: 08/19/2024 10:38 AM Status: COMPLETED Source: [facility] HNO ID: [id number] Author: JODY QUINTANILLA RN Service: ? Author Type: Registered Nurse Type: Progress Notes Filed: 08/19/2024 11:39 Note Text: Patient arrives for C2 D8 of chemotherapy. Patient states that she felt improvement when she received hydration prior to C2 and would like additional hydration today if possible. States has no appetite (1# wt loss) with fatigue. Dr Albright updated and orders received for NS 500ml to be given with the treatment over one hour. Patient denies other needs and agrees with the plan. Jody Quintanilla RN CBC W AUTO DIFF BLD Collected: 08/19/2024 8:[address] atus: F Source: [facility] Order Comment: Specimen Type : BLOOD SPECIMEN Ordering Facility: [facility] Address: [address] [place] [address] TYPE CODE TESTS RESULT OUT OF RANGE REFERENCE UNITS LAB 6690-2(LOINC) WBC # Bld Auto 2.65 Low 3.70-11.00 k/uL LAB 789-8(LOINC) RBC # Bld Auto 3.35 Low 3.90-5.20 m/ uL LAB 718-7(LOINC) Hgb Bld-mCnc 12.0 11.5-15.5 g/dL LAB 4544-3(LOINC) Hct VFr Bld Auto 37.0 36.0-46.0 % LAB 787-2(LOINC) MCV RBC Auto 110.4 High 80.0-100.0 fL LAB 785-6(LOINC) MCH RBC Qn Auto 35.8 High 26.0-34.0 p g LAB 786-4(LOINC) MCHC RBC Auto-mCnc 32.4 30.5-36.0 g/dL LAB 55149-5(LOINC ) RDW RBC-Rto 15.2 High 11.5-15.0 % LAB 777-3(LOINC) Platelet # Bld Auto 314 150-400 k/uL LAB 88445-7(LOINC ) PMV Bld Auto 9.3 9.0-12.7 fL LAB 88476-9(LOINC ) CBC W Diff pnl,unspecified Bld Done LAB 770-8(LOINC) Neutrophils/leuk NFr Bld Auto 48.3 % LAB 751-8(LOINC) Neutrophils # Bld Auto 1.28 Low 1.45-7.50 k/uL LAB 736-9(LOINC) Lymphocytes/leuk NFr Bld Auto 32.1 % LAB 731-0(LOINC) Lymphocytes # Bld Auto 0.85 Low 1.00-4.00 k/uL LAB 5905-5(LOINC) Monocytes/leuk NFr Bld Auto 17.7 % LAB 742-7(LOINC) Monocytes # Bld Auto 0.47 <0.87 k/uL LAB 713-8(LOINC) Eosinophil/leuk NFr Bld Auto 0.0 % LAB 711-2(LOINC) Eosinophil # Bld Auto <0.03 <0.46 k/uL LAB 706-2(INC) Basophils/leuk NFr Bld Auto 1.1 % LAB 704-7(INC) Basophils # Bld Auto 0.03 <0.11 k/uL LAB 04214-5(INC ) Imm Granulocytes/jose k NFr Bld Auto 0.8 % LAB 48568-7(INC ) Imm Granulocytes # Bld Auto <0.03 <0.10 k/uL LAB 96137-4(LOINC ) nRBC/100 WBC Bld-Rto 0.8 /100 WBC LAB 771-6(INC) nRBC # Bld Auto 0.02 High <0.01 k/u L LAB 55463-3(INC ) Platelet # Bld Est Adequate LAB RBCMORBEAKER1 RED CELL MORPH Reviewed: se e results of individual morphologies LAB 90510-2(INC ) Polychromasia Bld Ql Smear Slight LAB 774-0([facility]) Ovalocytes Bld Ql Smear Few LAB RBCFRAG RBC FRAGMENTS Few Abnormal None Seen LAB 21185-0([facility] ) Differential method Bld Auto Performed By: #### [id number] # ### [facility] CLIA [id number] [address] [facility] CLIA [id number] [address] Observed: 08/16/2024 10:24 AM Status: F Source: [facility] Echocardiography Report: Tra nsthoracic Echo [facility] Date of service: 08/16/2024 10:24:12 AM DEVELOPER Ordering physician: JOHN ALBRIGHT Indication: Baseline and serial evaluation in a patient undergoing therapy with cardiotoxic agents Technologist: Ivy Lowery [facility] Interpreting physician: Guerrero Nicolas MD PATIENT: Name: MRS. JOYCE ROBLES : 1955 Age: 69 years Gender: F Primary rhythm: sinus. Height: 165.10 cm BSA: 1.85 m Weight: 74.30 kg BMI: 27.3 kg/m Heart rate 107 bpm Blood pressure 122/83 mmHg Technically difficult exam due to body habitus. Color Doppler was utilized to interrogate the cardiac valves assessed and spectral Doppler was utilized to determine the flow velocities and pressure gradients reported in this exam. Myocardial strain analysis was performed in this exam to aid in the assessment of cardiac function. MEASUREMENTS: Value Indexed Normal Max aortic dimension 3.3 cm Ao < 3.8 Left atrial volume 34 ml (biplane A-L) 18 ml/m Juliann <= 34 LV ID (diastole) 3.5 cm (2D) 1.88 cm/m LV ID (systole) 2.1 cm (2D) 1.14 cm/m IVS, leaflet tips 1.1 cm (2D) Posterior wall thickness 1.0 cm (2D) Left ventricular mass 110 g (2D) 60 g/m Global peak long strain -18.9 % LV stroke volume 36 ml (2D biplane) LV end diastolic volume 62 ml (2D biplane) 33.3 ml/m 29<=EDVi<62 LV end systolic volume 25 ml (2D biplane) 13.6 ml/m Ejection Fraction 59 % (2D biplane) EF > 54 FINDINGS: LEFT VENTRICLE The left ventricle is normal in size. Left ventricular systolic function is normal. Global LV myocardial strain is normal. Normal left ventricular diastolic function. Mitral annular lateral E/e': 8.1. Mitral annular septal E/e': 8.1. Wall Motion: All scored segments are normal. RIGHT VENTRICLE The right ventricle is normal in size. Right ventricular systolic function is normal. RV systolic tissue Doppler velocity is 15.0 cm/s. Tricuspid annular displacement is 1.9 cm. Estimated right ventricular systolic pressure is 28 mmHg consistent with normal pulmonary artery pressures. Estimated right atrial pressure is 3 mmHg (although IVC not seen). LEFT ATRIUM The left atrial cavity is normal in size. Pulmonary Veins: The pulmonary venous pattern showed normal systolic flow. RIGHT ATRIUM The right atrial cavity is normal in size. MITRAL VALVE The mitral valve leaflets are structurally normal. There is mild mitral annular calcification observed posterior. There is no mitral valve regurgitation. The pressure half time is 38 msec. The peak mitral E/A ratio is 0.68. The average mitral E/e' ratio is 8.1. The mitral flow deceleration time is 130 msec. TRICUSPID VALVE The tricuspid valve leaflets are structurally normal. There is mild (1+) tricuspid valve regurgitation. AORTIC VALVE The aortic valve cusps are structurally normal. There is no aortic valve stenosis. There is no aortic valve regurgitation. Tricuspid aortic valve. The peak gradient is 6 mmHg (peak velocity = 123.3 cm/s). PULMONIC VALVE The pulmonic valve cusps are structurally normal. There is no pulmonic valve regurgitation. AORTA The visualized aorta is normal in size. Measurements - Mid ascending aorta 3.3 cm. PERICARDIUM There is no pericardial effusion. There is an epicardial fat pad. CONCLUSIONS: - Technically difficult exam due to body habitus. - Exam indication: Baseline and serial evaluation in a patient undergoing therapy with cardiotoxic agents - The left ventricle is normal in size. Left ventricular systolic function is normal. EF = 59 5% (2D biplane). Normal left ventricular diastolic function. - The right ventricle is normal in size. Right ventricular systolic function is normal. - Mild (1+) tricuspid valve regurgitation. - Patient was tachycardic throughout entire exam. - The patient has not had a prior CC echocardiographic exam for comparison. * * * Final * * * [facility] [employer] Medical Image : [id number] PROGRESS Observed: 08/11/2024 11:32 AM Status: COMPLETED Source: [facility] HNO ID: [id number] Author: JODY QUINTANILLA RN Service: ? Author Type: Registered Nurse Type: Progress Notes Filed: 08/11/2024 11:36 Note Text: Confirmed with Jami Pearce INTEGRATION TECHNICIAN that pt should return tomorrow for treatment. If things change this office would contact her and update. Pt agrees with the plan. Pt states she does believe that the IVF did help. Jody Quintanilla RN CNOVSP Observed: 08/11/2024 9:00 AM Status: COMPLETED Source: [facility] Visit (SP) Office (HEMAWS) JOYCE ROBLES ([id number]) 1955 F Date Time Provider Department 08/11/24 9:00 AM JAMI PEARCE During your visit today, we recorded the following information about you: Temperature Pulse Blood pressure Weight 99 degrees 105/minute 109/78 74.3 kg Jami Pearce APRN.SOLE MOLDER 08/11/2024 1:33 PM Signed Chief Complaint Patient presents with: Established Patient HPI: Joyce Robles is a 69 year old female who presents here today for evaluation for treatment tomorrow. Per Dr. Albright's previous note: H/o diagnosed with ovarian cancer 10/2008. She underwent surgery [...] 2016. The pathology demonstrated a 2.5 cm ER/IA positive, HER2 negative tumor in the left breast with micro metastasis in 1 of 3 sentinel lymph nodes (0.8 mm). Overall grade was 3. Lymphovascular invasion was present. Closest margin was 2 mm from anterior margin. ER was positive greater than 95%. IA positive greater than 95% with moderate to strong staining intensity. HER2 was equivocal 1-2+; nonamplified by FISH testing. She declined adjuvant chemotherapy but received adjuvant radiation. Was started on AI with anastrozole beginning 10/2016. Was found to have germline BRCA2 mutation. She had declined prophylactic mastectomy and had been undergoing screening for breast cancer. Recently presented to [facility] on 03/12/2024 with a complaint of increasing shortness of breath. Prior to that she had been on a 10-day trip to [place]. CTA of the chest same day demonstrated [...] to 2 miles a day. [facility]. Son in [place]--helps with house and yard. Daughter in [place]. about 3 years ago. No chest pain. 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 Most recent right-sided thoracentesis was on 07/15/2024. 1960 mL of clear yellow fluid drained. Has been holding apixaban the day prior to thoracentesis only. Was tapped on Friday-Right side. Having thoracentesis weekly. Holding eliquis the night before. Appetite:"Not much." Wt. down 14# since 07/20/24 Energy level:"Not much." Denies fevers. Mouth:denies sores Resp:denies cough or sob Cardiac:denies chest pain/"fast heartbeat." GI:denies abd pain, n/v, occ. constipation-takes senna prn :denies dysuria/hematuria Extrem:denies pain Neuro:tingling to toes Skin:denies rashes Heme:denies bleeding The ROS is otherwise negative. Past medical history, appointments, medications, allergies reviewed. No changes. EXAM: BP 109/78 Pulse 105 Temp 37.2 ?C (99 ?F) (Temporal) Wt 74.3 kg (163 lb 12.8 oz) SpO2 95% BMI 27.26 kg/m? APPEARANCE fatigued appearing, alert, in no acute distress MOUTH no thrush/mucositis HEART tachy, no murmurs LUNG clear to auscultation ABDOMEN bowel sounds normoactive, soft, non-tender EXTREMITIES No edema NEURO Awake, alert and oriented x 3, Normal gait, and No involuntary motions. SKIN Skin color, texture, turgor normal, no suspicious rashes or lesions LABS: Latest Ref Rng 07/20/2024 07/30/2024 08/11/2024 WBC 3.70 - 11.00 k/uL 6.35 2.67 (L) 5.46 RBC 3.90 - 5.20 m/uL 3.88 (L) 3.38 (L) 3.42 (L) Hemoglobin 11.5 - 15.5 g/dL 13.5 12.1 12.5 Hematocrit 36.0 - 46.0 % 39.6 34.8 (L) 36.9 MCV 80.0 - 100.0 fL 102.1 (H) 103.0 (H) 107.9 (H) MCH 26.0 - 34.0 pg 34.8 (H) 35.8 (H) 36.5 (H) MCHC 30.5 - 36.0 g/dL 34.1 34.8 33.9 RDW-CV 11.5 - 15.0 % 18.6 (H) 17.2 (H) 17.3 (H) Platelet Count 150 - 400 k/uL 277 157 349 MPV 9.0 - 12.7 fL 9.7 9.9 9.7 Neut% % 75.7 56.6 76.0 Abs Neut (ANC) 1.45 - 7.50 k/uL 4.81 1.51 4.15 Lymph% % 17.6 28.8 15.4 Abs Lymph 1.00 - 4.00 k/uL 1.12 0.77 (L) 0.84 (L) Pacific% % 5.7 13.5 7.5 Abs Pacific <0.87 k/uL 0.36 0.36 0.41 Eosin% % 0.3 0.0 0.2 Abs Eosin <0.46 k/uL <0.03 <0.03 <0.03 Baso% % 0.5 0.7 0.4 Abs Baso <0.11 k/uL 0.03 <0.03 <0.03 Immature Gran % % 0.2 0.4 0.5 IMMATURE GRANS (ABS) <0.10 k/uL <0.03 <0.03 0.03 NRBC /100 WBC 0.3 0.7 0.0 Absolute nRBC <0.01 k/uL 0.02 (H) 0.02 (H) <0.01 DTYPE Auto Auto Auto Latest Ref Rng 07/20/2024 07/30/2024 08/11/2024 Protein, Total 6.3 - 8.0 g/dL 6.0 (L) 5.6 (L) 5.7 (L) Albumin 3.9 - 4.9 g/dL 3.5 (L) 3.2 (L) 3.4 (L) Calcium 8.5 - 10.2 mg/dL 10.1 9.6 9.5 Bilirubin, Total 0.2 - 1.3 mg/dL 0.6 0.4 0.4 Alkaline Phosphatase 34 - 123 U/L 90 84 103 AST 13 - 35 U/L 28 31 29 ALT 7 - 38 U/L 16 32 30 Glucose 74 - 99 mg/dL 158 (H) 124 (H) 188 (H) BUN 7 - 21 mg/dL 13 13 10 Creatinine 0.58 - 0.96 mg/dL 0.73 0.68 0.78 Sodium 136 - 144 mmol/L 139 137 137 Potassium 3.7 - 5.1 mmol/L 3.9 3.9 3.9 Chloride 98 - 107 mmol/L 102 99 105 CO2 22 - 30 mmol/L 27 28 24 Anion Gap 8 - 15 mmol/L 10 10 8 eGFR >=60 mL/min/1.73m? 89 94 82 Tumor markers: Pending RADIOLOGY: CXR 08/11/24: Pending ASSESSMENT/PLAN: 1. Malignant neoplasm of upper-outer quadrant of left breast in female, estrogen receptor positive (HCC) - ICD9: 174.4, V86.0, ICD10: C50.412, Z17.0 (primary diagnosis) 2. Malignant pleural effusion - ICD9: 511.81, ICD10: J91.0 3. Malignant neoplasm metastatic to brain (HCC) - ICD9: 198.3, ICD10: C79.31 4. 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 Right-sided malignant pleural effusion. History of ovarian cancer. - Overall tolerated first cycle of gemzar fair d/t fatigue/wt. loss. - Reviewed CBC/CMP with pt. - MRI per neuro surg. - Advised pt. to hold HCTZ d/t low BP. - Continue eliquis-no bleeding issues. Continue to hold eliquis the day prior to thoracentesis. - Continue weekly thoracentesis. - NS 1000ml today. - Proceed as scheduled tomorrow for gemzar. - Follow up as scheduled. - Pt. aware to call office with any questions/concerns. Discussed case with Dr. Albright who agrees with treatment plan. The patient indicates understanding of these issues and agrees with the plan. All documentation from previous visit of 07/20/24-Dr. Albright was copied and pasted, documentation has been reviewed and edited as necessary for today's visit. Jami Pearce APRN.SOLE MOLDER Allergies As of Date: 08/11/2024 Noted Allergy Reaction ZOFRAN (ONDANSETRON) 07/23/2024 14 - Other: See Comments Comments: Migraines. DEMERAL (MEPERIDINE) 04/01/2016 8 - GI Upset PERCOCET (OXYCODONE-ACETAMINOPHEN)04/01/2016 8 - GI Upset Date Reviewed: 08/11/2024 Reviewed by: Jami Pearce APRN.SOLE MOLDER - Fully Assessed Reason for Visit: Established Patient [175] Primary Visit Diagnosis:Malignant neoplasm of upper-outer quadrant of left breast in female, estrogen receptor positive (HCC) [C50.412, Z17.0] Other Visit Diagnoses:Malignant pleural effusion [J91.0] Malignant neoplasm metastatic to brain (HCC) [C79.31] Dehydration [E86.0] Follow-up and Disposition History for Encounter Date Provider Department Center 08/11/2024 [id number], DARBY NELIDA [facility] Prescriptions as of 08/11/2024 - prochlorperazine (COMPAZINE) 10 mg tablet Take 1 tablet by mouth every 6 hours as needed (For chemotherapy induced nausea and vomiting). - hydrOXYzine pamoate (VISTARIL) 25 mg capsule TAKE 1 (ONE) CAPSULE BY MOUTH DAILY AT BEDTIME NEEDED FOR SLEEP - calcium carbonate/vitamin D3 (CALCIUM + D ORAL) Take 1 tablet by mouth once daily. - apixaban (ELIQUIS) 5 mg tab(s) Take 5 mg by mouth two times a day. - hydroCHLOROthiazide 12.5 mg tablet Take 12.5 mg by mouth every morning. - ginkgo biloba (GINKOBA ORAL) Take 120 mg by mouth once daily. - MULTI-VITAMIN ORAL Take 1 tablet by mouth once daily. - GLUCOSAMINE SULFATE (GLUCOSAMINE ORAL) Take 1 tablet by mouth once daily. - TURMERIC ROOT EXTRACT ORAL Take 450 mg by mouth once daily. Problem List As Of Date 08/11/2024 Noted Resolved Abnormal mammogram [R92.8] 04/01/2016 Malignant neoplasm of upper-outer quadrant of l*04/08/2016 Fat necrosis [M79.89] 01/06/2017 BRCA2 gene mutation positive [Z15.01, Z15.09] 04/07/2024 History of ovarian cancer [Z85.43] 04/07/2024 Pulmonary embolus (HCC) [I26.99] 04/07/2024 Carcinoma of left breast metastatic to bone (HC*05/04/2024 Malignant pleural effusion [J91.0] 05/04/2024 Malignant neoplasm metastatic to brain (HCC) [C*06/07/2024 Dehydration [E86.0] 08/11/2024 Encounter Status:Closed by JAMI PEARCE on 08/11/24 PROGRESS Observed: 08/11/2024 8:40 AM Status: COMPLETED Source: [facility] HNO ID: [id number] Author: JAMI PEARCE APRN.SOLE MOLDER Service: ? Author Type: Nurse Practitioner Type: Progress Notes Filed: 08/11/2024 13:33 Note Text: Chief Complaint Patient presents with: Established Patient HPI: Joyce Robles is a 69 year old female who presents here today for evaluation for treatment tomorrow. Per Dr. Albright's previous note: H/o diagnosed with ovarian cancer 10/2008. She underwent surgery [...] 2016. The pathology demonstrated a 2.5 cm ER/IA positive, HER2 negative tumor in the left breast with micro metastasis in 1 of 3 sentinel lymph nodes (0.8 mm). Overall grade was 3. Lymphovascular invasion was present. Closest margin was 2 mm from anterior margin. ER was positive greater than 95%. IA positive greater than 95% with moderate to strong staining intensity. HER2 was equivocal 1-2+; nonamplified by FISH testing. She declined adjuvant chemotherapy but received adjuvant radiation. Was started on AI with anastrozole beginning 10/2016. Was found to have germline BRCA2 mutation. She had declined prophylactic mastectomy and had been undergoing screening for breast cancer. Recently presented to [facility] on 03/12/2024 with a complaint of increasing shortness of breath. Prior to that she had been on a 10-day trip to [place]. CTA of the chest same day demonstrated [...] a day. Lives in town. Son in [place]--helps with house and yard. Daughter in [place]. about 3 years ago. No chest pain. 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 Most recent right-sided thoracentesis was on 07/15/2024. 1960 mL of clear yellow fluid drained. Has been holding apixaban the day prior to thoracentesis only. Was tapped on Friday-Right side. Having thoracentesis weekly. Holding eliquis the night before. Appetite:"Not much." Wt. down 14# since 07/20/24 Energy level:"Not much." Denies fevers. Mouth:denies sores Resp:denies cough or sob Cardiac:denies chest pain/"fast heartbeat." GI:denies abd pain, n/v, occ. constipation-takes senna prn :denies dysuria/hematuria Extrem:denies pain Neuro:tingling to toes Skin:denies rashes Heme:denies bleeding The ROS is otherwise negative. Past medical history, appointments, medications, allergies reviewed. No changes. EXAM: BP 109/78 Pulse 105 Temp 37.2 ?C (99 ?F) (Temporal) Wt 74.3 kg (163 lb 12.8 oz) SpO2 95% BMI 27.26 kg/m? APPEARANCE fatigued appearing, alert, in no acute distress MOUTH no thrush/mucositis HEART tachy, no murmurs LUNG clear to auscultation ABDOMEN bowel sounds normoactive, soft, non-tender EXTREMITIES No edema NEURO Awake, alert and oriented x 3, Normal gait, and No involuntary motions. SKIN Skin color, texture, turgor normal, no suspicious rashes or lesions LABS: Latest Ref Rng 07/20/2024 07/30/2024 08/11/2024 WBC 3.70 - 11.00 k/uL 6.35 2.67 (L) 5.46 RBC 3.90 - 5.20 m/uL 3.88 (L) 3.38 (L) 3.42 (L) Hemoglobin 11.5 - 15.5 g/dL 13.5 12.1 12.5 Hematocrit 36.0 - 46.0 % 39.6 34.8 (L) 36.9 MCV 80.0 - 100.0 fL 102.1 (H) 103.0 (H) 107.9 (H) MCH 26.0 - 34.0 pg 34.8 (H) 35.8 (H) 36.5 (H) MCHC 30.5 - 36.0 g/dL 34.1 34.8 33.9 RDW-CV 11.5 - 15.0 % 18.6 (H) 17.2 (H) 17.3 (H) Platelet Count 150 - 400 k/uL 277 157 349 MPV 9.0 - 12.7 fL 9.7 9.9 9.7 Neut% % 75.7 56.6 76.0 Abs Neut (ANC) 1.45 - 7.50 k/uL 4.81 1.51 4.15 Lymph% % 17.6 28.8 15.4 Abs Lymph 1.00 - 4.00 k/uL 1.12 0.77 (L) 0.84 (L) Pacific% % 5.7 13.5 7.5 Abs Pacific <0.87 k/uL 0.36 0.36 0.41 Eosin% % 0.3 0.0 0.2 Abs Eosin <0.46 k/uL <0.03 <0.03 <0.03 Baso% % 0.5 0.7 0.4 Abs Baso <0.11 k/uL 0.03 <0.03 <0.03 Immature Gran % % 0.2 0.4 0.5 IMMATURE GRANS (ABS) <0.10 k/uL <0.03 <0.03 0.03 NRBC /100 WBC 0.3 0.7 0.0 Absolute nRBC <0.01 k/uL 0.02 (H) 0.02 (H) <0.01 DTYPE Auto Auto Auto Latest Ref Rng 07/20/2024 07/30/2024 08/11/2024 Protein, Total 6.3 - 8.0 g/dL 6.0 (L) 5.6 (L) 5.7 (L) Albumin 3.9 - 4.9 g/dL 3.5 (L) 3.2 (L) 3.4 (L) Calcium 8.5 - 10.2 mg/dL 10.1 9.6 9.5 Bilirubin, Total 0.2 - 1.3 mg/dL 0.6 0.4 0.4 Alkaline Phosphatase 34 - 123 U/L 90 84 103 AST 13 - 35 U/L 28 31 29 ALT 7 - 38 U/L 16 32 30 Glucose 74 - 99 mg/dL 158 (H) 124 (H) 188 (H) BUN 7 - 21 mg/dL 13 13 10 Creatinine 0.58 - 0.96 mg/dL 0.73 0.68 0.78 Sodium 136 - 144 mmol/L 139 137 137 Potassium 3.7 - 5.1 mmol/L 3.9 3.9 3.9 Chloride 98 - 107 mmol/L 102 99 105 CO2 22 - 30 mmol/L 27 28 24 Anion Gap 8 - 15 mmol/L 10 10 8 eGFR >=60 mL/min/1.73m? 89 94 82 Tumor markers: Pending RADIOLOGY: CXR 08/11/24: Pending ASSESSMENT/PLAN: 1. Malignant neoplasm of upper-outer quadrant of left breast in female, estrogen receptor positive (HCC) - ICD9: 174.4, V86.0, ICD10: C50.412, Z17.0 (primary diagnosis) 2. Malignant pleural effusion - ICD9: 511.81, ICD10: J91.0 3. Malignant neoplasm metastatic to brain (HCC) - ICD9: 198.3, ICD10: C79.31 4. 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 Right-sided malignant pleural effusion. History of ovarian cancer. - Overall tolerated first cycle of gemzar fair d/t fatigue/wt. loss. - Reviewed CBC/CMP with pt. - MRI per neuro surg. - Advised pt. to hold HCTZ d/t low BP. - Continue eliquis-no bleeding issues. Continue to hold eliquis the day prior to thoracentesis. - Continue weekly thoracentesis. - NS 1000ml today. - Proceed as scheduled tomorrow for gemzar. - Follow up as scheduled. - Pt. aware to call office with any questions/concerns. Discussed case with Dr. Albright who agrees with treatment plan. The patient indicates understanding of these issues and agrees with the plan. All documentation from previous visit of 07/20/24-Dr. Albright was copied and pasted, documentation has been reviewed and edited as necessary for today's visit. Jami Pearce APRN.SOLE MOLDER CANCER AG15-3 SERPL-ACNC Collected: 8:24 AM Status: F Source: [facility] Order Comment: Specimen Type : BLOOD SPECIMEN Ordering Facility: [facility] Address: [address] [place] [address] TYPE CODE TESTS RESULT OUT OF RANGE REFERENCE UNITS LAB 6875-9([facility]) Cancer Ag15-3 SerPl-aCnc 631.5 High <26.0 U/mL Result Comment: The CA 15-3 test methodology used is the Electrochemiluminescence Immunoassay by [employer]. Results obtained with different methods or kits cannot be used interchangeably. Performed By: #### [id number] ## ## [facility] CLIA [id number] [address] [place] [address] STATES OF [place]ASIEL CBC W AUTO DIFF BLD Collected: 08/11/2024 8:[address] atus: F Source: [facility] Order Comment: Specimen Type : BLOOD SPECIMEN Ordering Facility: [facility] Address: [address] [place] [address] TYPE CODE TESTS RESULT OUT OF RANGE REFERENCE UNITS LAB 6690-2(LOINC) WBC # Bld Auto 5.46 3.70-11.00 k/uL LAB 789-8(LOINC) RBC # Bld Auto 3.42 Low 3.90-5.20 m/ uL LAB 718-7(LOINC) Hgb Bld-mCnc 12.5 11.5-15.5 g/dL LAB 4544-3(LOINC) Hct VFr Bld Auto 36.9 36.0-46.0 % LAB 787-2(LOINC) MCV RBC Auto 107.9 High 80.0-100.0 fL LAB 785-6(LOINC) MCH RBC Qn Auto 36.5 High 26.0-34.0 p g LAB 786-4(LOINC) MCHC RBC Auto-mCnc 33.9 30.5-36.0 g/dL LAB 79469-5(INC) RDW RBC-Rto 17.3 High 11.5-15.0 % LAB 777-3(LOINC) Platelet # Bld Auto 349 150-400 k/uL LAB 74489-3(INC) PMV Bld Auto 9.7 9.0-12.7 fL LAB 770-8(INC) Neutrophils/leuk NFr Bld Auto 76.0 % LAB 751-8(INC) Neutrophils # Bld Auto 4.15 1.45-7.50 k/uL LAB 736-9(INC) Lymphocytes/leuk NFr Bld Auto 15.4 % LAB 731-0(INC) Lymphocytes # Bld Auto 0.84 Low 1.00-4.00 k/uL LAB 5905-5(INC) Monocytes/leuk NFr Bld Auto 7.5 % LAB 742-7(INC) Monocytes # Bld Auto 0.41 <0.87 k/uL LAB 713-8(INC) Eosinophil/leuk NFr Bld Auto 0.2 % LAB 711-2(INC) Eosinophil # Bld Auto <0.03 <0.46 k/uL LAB 706-2(INC) Basophils/leuk NFr Bld Auto 0.4 % LAB 704-7(INC) Basophils # Bld Auto <0.03 <0.11 k/uL LAB 37315-3(INC) Imm Granulocytes/jose k NFr Bld Auto 0.5 % LAB 95941-6(INC) Imm Granulocytes # Bld Auto 0.03 <0.10 k/uL LAB 83451-6(INC) nRBC/100 WBC Bld-Rto 0.0 /100 WBC LAB 771-6(INC) nRBC # Bld Auto <0.01 <0.01 k/u L LAB 41775-6(INC) Differential method Bld Auto Performed By: #### 89717-4 # ### [facility] CLIA [id number] [address] [place] [address] OF JASIEL CANCER AG27-29 SERPL-ACNC Collected: 8:24 AM Status: F Source: [facility] Order Comment: Specimen Type : BLOOD SPECIMEN Ordering Facility: [facility] Address: [address] [place] [address] TYPE CODE TESTS RESULT OUT OF RANGE REFERENCE UNITS LAB 31108-2([facility]) Cancer Ag27-29 SerPl-aCnc 1087.1 High <38.6 U/mL Result Comment: The CA27.29 test was performed using the Siemens Son[employer]aur XP chemiluminometric immunoassay method. Results obtained with different assay methods or kits cannot be used interchangeably. Performed By: #### 06331-3 # ### [facility] CLIA [id number] [address] [place] [address] [place] COMP METAB 2000 PNL SERPL Collected: 8:24 AM Status: F Source: [facility] Order Comment: Specimen Type : BLOOD SPECIMEN Ordering Facility: [facility] Address: [address] [place] [address] TYPE CODE TESTS RESULT OUT OF RANGE REFERENCE UNITS LAB 2885-2(LOINC) Prot SerPl-mCnc 5.7 Low 6.3-8.0 g/dL LAB 1751-7(LOINC) Albumin SerPl-mCnc 3.4 Low 3.9-4.9 g/dL LAB 11923-3(LOINC) Calcium SerPl-mCnc 9.5 8.5-10.2 mg/dL LAB 1975-2(LOINC) Bilirub SerPl-mCnc 0.4 0.2-1.3 mg/dL LAB 6768-6(LOINC) ALP SerPl-cCnc 103 34-123 U/L LAB 1920-8(LOINC) AST SerPl-cCnc 29 13-35 U/L LAB 1742-6(LOINC) ALT SerPl-cCnc 30 7-38 U/L LAB 2345-7(LOINC) Glucose SerPl-mCnc 188 High 74-99 mg/dL Result Comment: The [place] Diabetes Association (ADA) provides guidance for cutoff values for fasting glucose and random glucose. The ADA defines fasting as no caloric intake for at least 8 hours. Fasting plasma glucose results between 100 to 125 mg/dL indicate increased risk for diabetes (prediabetes). Fasting plasma glucose results greater than or equal to 126 mg/dL meet the criteria for diagnosis of diabetes. In the absence of unequivocal hyperglycemia, results should be confirmed by repeat testing. In a patient with classic symptoms of hyperglycemia or hyperglycemic crisis, random plasma glucose results greater than or equal to 200 mg/dL meet the criteria for diagnosis of diabetes. Reference: Standards of Medical Care in Diabetes 2016, [place] Diabetes Association. Diabetes Care. 2016.39(Suppl 1). LAB 3094-0(LOINC) BUN SerPl-mCnc 10 7-21 mg/ dL LAB 2160-0(LOINC) Creat SerPl-mCnc 0.78 0.58-0.96 mg/dL LAB 2951-2(LOINC) Sodium SerPl-sCnc 137 136-144 mmol/L LAB 2823-3(LOINC) Potassium SerPl-sCnc 3.9 3.7-5.1 mmol/L LAB 2075-0(LOINC) Chloride SerPl-sCnc 105 98-107 mmol/L LAB 2027-9(LOINC) CO2 SerPl-sCnc 24 22-30 mmo l/L LAB 11828-1(LOINC) Anion Gap SerPl-sCnc 8 8-15 mmol/L LAB 69251-7(LOINC) Creatinine + eGFR Pnl SerPlBld 82 >=60 mL/min/1 .73m??? Result Comment: Estimated Gl omerular Filtration Rate (eGFR) is calculated using the 2020 CKD-EPI creatinine equation. This equation utilizes serum creatinine, sex, and age as parameters. The creatinine assay has traceable calibration to isotope dilution-mass spectrometry. Refer to KDIGO guidelines for clinical interpretation. In patients with unstable renal function, e.g. those with acute kidney injury, the eGFR may not accurately reflect actual GFR. Performed By: #### 31415-4 # ### [facility] CLIA [id number] [address] [place] [address] [place] XR CHEST 2V FRONTAL/LAT Observed: 2024 8:21 AM Status: F Source: [facility] * * *Final Report* * * DATE OF EXAM: Aug 11 2024 8:21AM WRX [id number] - XR CHEST 2V FRONTAL/LAT / PROCEDURE REASON: Malignant pleural effusion * * * * Physician Interpretation * * * * EXAMINATION: CHEST RADIOGRAPH (2 VIEW FRONTAL and LATERAL) CLINICAL HISTORY: Malignant pleural effusion MQ: XC2_6 EXAM DATE/TIME: 08/11/2024 8:21 AM COMPARISON: 07/20/2024 RESULT: Lines, tubes, and devices: None. Lungs and pleura: Fluid and atelectasis is seen at both lung bases. Stable on the left. Slightly improved on the right. Upper lungs are clear. No pneumothorax Cardiomediastinal silhouette: Stable cardiomediastinal silhouette. Bones and soft tissues: Unremarkable. IMPRESSION: Fluid and atelectasis at both lung bases. Slightly improved on the right Drafter: KEVIN Transcribe Date/Time: Aug 11 2024 1:31P Dictated by : SIMIN OLIVARES MD This examination was interpreted and the report reviewed and electronically signed by: SIMIN OLIVARES MD on Aug 11 2024 1:46PM EST [id number] CNPN Observed: 08/11/2024 12:00 AM Status: COMPLETED Source: [facility] Telephone (ROBYNAWS) JOYCE ROBLES ([id number]) 1955 F Date Time Provider Department 08/11/24 PRETTY SHEFFIELD During your visit today, we recorded the following information about you: Pretty Sheffield, RN 08/11/2024 5:00 PM Addendum Care Coordination Triage Note [facility] Situation: Patient reports Bowel symptoms Background: Disease, current pertinent medications/treatments Breast, Gemzar Assessment: Constipation Symptoms: When was your last bowel movement? today, small amount this afternoon, not a good BM in 5 days, feels bloated has a decreased appetite Any blood in the stool or on the toilet tissue? No If yes, when did you first notice that? started feeling things slow down a few weeks ago Are you eating and drinking normally? yes, she thinks she does. Are you taking any new medications or supplements? no Are you passing any gas? yes Any fever, nausea or vomiting? no What have you taken to try to alleviate your constipation symptoms? Was seen by Jami earlier today, was advised to take 2 senna, she took around 1130 and not helped yet. She was also ordered fluids, 1 liter given today. Does your stomach look swollen, feel hard to touch, or do you have pain in your stomach? No pain Advised MagCitrate, 1/2 bottle, wait 4 hours and if no BM, take the other 1/2. 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 She doesn't want to run into any issues of not being able to come in for appointment. She does not have an Miralax at home. Encouraged to continue to push fluids. She is also concerned about her HR. States is has been running higher. Jami was thinking maybe due to dehydration. Patient states that after getting fluids, she feels better but her HR only came down some. She is wondering if she should be concerned and if there is something else to do to help bring it down more. Recommendations: Per RNCC, patient directed to: Manage at home. Instructions provided. Will send update to Dr. Albright and call back with any further instructions. Pretty Sheffield RN August 11, 2024 4:[address] Albright aware, agrees with above and wants patient to have an ECHO. Orders pended. VÍCTOR Adamson Paul A, DO 08/11/2024 5:11 PM Signed Orders for echo filed. DO Amrita Bautista Melanie, LPN 08/12/2024 8:33 AM Signed PSS- Patient aware she needs to schedule an echo. She will be here this morning for treatment. Appointment note updated. ELA Patel Angela 08/12/2024 10:50 AM Signed Patient stopped and scheduled Me Allergies As of Date: 08/11/2024 Noted Allergy Reaction ZOFRAN (ONDANSETRON) 07/23/2024 14 - Other: See Comments Comments: Migraines. DEMERAL (MEPERIDINE) 04/01/2016 8 - GI Upset PERCOCET (OXYCODONE-ACETAMINOPHEN)04/01/2016 8 - GI Upset Date Reviewed: 08/11/2024 Reviewed by: Jami Pearce APRN.SOLE MOLDER - Fully Assessed Reason for Visit: Care Coordination [3491] Cmt: Constipation Primary Visit Diagnosis:Multiple subsegmental pulmonary emboli without acute cor pulmonale (HCC) [I26.94] Other Visit Diagnosis:Tachycardia [R00.0] Order(s):ECHO [077555] Order #: [id number]: 1 FUTURE Prescriptions as of 08/12/2024 - prochlorperazine (COMPAZINE) 10 mg tablet Take 1 tablet by mouth every 6 hours as needed (For chemotherapy induced nausea and vomiting). - hydrOXYzine pamoate (VISTARIL) 25 mg capsule TAKE 1 (ONE) CAPSULE BY MOUTH DAILY AT BEDTIME NEEDED FOR SLEEP - calcium carbonate/vitamin D3 (CALCIUM + D ORAL) Take 1 tablet by mouth once daily. - apixaban (ELIQUIS) 5 mg tab(s) Take 5 mg by mouth two times a day. - hydroCHLOROthiazide 12.5 mg tablet Take 12.5 mg by mouth every morning. - ginkgo biloba (GINKOBA ORAL) Take 120 mg by mouth once daily. - MULTI-VITAMIN ORAL Take 1 tablet by mouth once daily. - GLUCOSAMINE SULFATE (GLUCOSAMINE ORAL) Take 1 tablet by mouth once daily. - TURMERIC ROOT EXTRACT ORAL Take 450 mg by mouth once daily. Facility-Administered Medications as of 08/12/2024 - prochlorperazine 10 mg injection (COMPAZINE) - NaCl 0.9% iv infusion - diphenhydrAMINE 50 mg injection (BENADRYL) - hydrocortisone sodium succinate (PF) 100 mg injection (Solu-CORTEF) - EPINEPHrine HCl (PF) 1 mg/mL (1 mL) 0.3 mg injection Problem List As Of Date 08/11/2024 Noted Resolved Abnormal mammogram [R92.8] 04/01/2016 Malignant neoplasm of upper-outer quadrant of l*04/08/2016 Fat necrosis [M79.89] 01/06/2017 BRCA2 gene mutation positive [Z15.01, Z15.09] 04/07/2024 History of ovarian cancer [Z85.43] 04/07/2024 Pulmonary embolus (HCC) [I26.99] 04/07/2024 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 When she saw the patient for follow-up, she was asked if there is anything more that can be done about the pleural effusions. Please arrange consultation with Dr. Gong for potential Pleurx catheter placement. DO Damion Bautista Kara, LPN 08/09/2024 8:43 AM Signed Left and sent a [employer] message. In the [employer] message briefly explaining what a PleurX is. Please assist pt in making an apt with Dr Gong or Gen Surg of her choice. ELA Tan Kara, LPN 08/09/2024 9:01 AM Signed Pt returned call to office. She does not wish to pursue the consult at this time, she would rather give the chemo more time and see if she sees results from that and continue her weekly thoracentesis for now. I advised her that the option for consult to Gen Surg would be available to her should she change her mind. ELA Tan Paul A, DO 08/09/2024 1:13 PM Signed Noted. Thank you. John Albright DO Allergies As of Date: 08/06/2024 Noted Allergy Reaction ZOFRAN (ONDANSETRON) 07/23/2024 14 - Other: See Comments Comments: Migraines. DEMERAL (MEPERIDINE) 04/01/2016 8 - GI Upset PERCOCET (OXYCODONE-ACETAMINOPHEN)04/01/2016 8 - GI Upset Date Reviewed: 07/23/2024 Reviewed by: Ivy Poon RN - Fully Assessed Reason for Visit: Follow Up [171] Primary Visit Diagnosis:Malignant neoplasm of upper-outer quadrant of left breast in female, estrogen receptor positive (HCC) [C50.412, Z17.0] Other Visit Diagnosis:Malignant pleural effusion [J91.0] Order(s):CONSULT TO GENERAL SURGERY [9053] Order #: [id number]: 1 FUTURE Prescriptions as of 08/09/2024 - prochlorperazine (COMPAZINE) 10 mg tablet Take 1 tablet by mouth every 6 hours as needed (For chemotherapy induced nausea and vomiting). - hydrOXYzine pamoate (VISTARIL) 25 mg capsule TAKE 1 (ONE) CAPSULE BY MOUTH DAILY AT BEDTIME NEEDED FOR SLEEP - calcium carbonate/vitamin D3 (CALCIUM + D ORAL) Take 1 tablet by mouth once daily. - apixaban (ELIQUIS) 5 mg tab(s) Take 5 mg by mouth two times a day. - hydroCHLOROthiazide 12.5 mg tablet Take 12.5 mg by mouth every morning. - ginkgo biloba (GINKOBA ORAL) Take 120 mg by mouth once daily. - MULTI-VITAMIN ORAL Take 1 tablet by mouth once daily. - GLUCOSAMINE SULFATE (GLUCOSAMINE ORAL) Take 1 tablet by mouth once daily. - TURMERIC ROOT EXTRACT ORAL Take 450 mg by mouth once daily. 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 Author Type: Nurse Practitioner Type: Progress Notes Filed: 08/05/2024 17:59 Note Text: [facility] BRAIN TUMOR CENTER NEURO-ONCOLOGY OUTPATIENT NOTE PURPOSE OF VISIT: Consultation requested by Dr. Swapnil Gonzales for an opinion regarding brain mass and my final recommendations will be communicated to the referring physician by way of shared medical record or letter to requesting physician via US mail. CHIEF COMPLAINT : Brain mets MEDICAL DECISION MAKING Assessment AND Plan 1. Brain mets s/p GKRS on 06/16/24 - MRI brain scan today shows decreased size of Right occipital lesion and nearly resolved Left frontal lesion - Noted, stable punctate Left temporal enhancement; not previously treated (series 14, image 78) - Images reviewed with her and her son today - Recommend follow up appointment with a new MRI brain scan in 3 months - Reviewed signs and symptoms that would prompt sooner evaluation - She has our contact information and was advised to call if new symptoms, questions or concerns arise prior to next scheduled visit. - All questions were answered. I spent a total of 45 minutes on the date of the service which included preparing to see the patient, [id number] patient care, completing clinical documentation, obtaining and/or reviewing separately obtained history, performing a medically appropriate examination, counseling and educating the patient/family/caregiver, ordering medications, tests, or procedures, communicating with other HCPs (not separately reported), independently interpreting results (not separately reported), communicating results to the patient/family/caregiver, and care coordination (not separately reported). Lizet Agudelo APRN.CNP Certified Nurse Practitioner cc: Swapnil Gonzales MD AND John Albright MD - Epic Subjective HISTORY OF PRESENT ILLNESS: Joyec Robles is a very pleasant 69 year old female who is here for a follow-up visit for breast cancer with brain metastases. She is s/p GKRS by Dr. Swapnil Gonzales and Dr. Jessie Clayton as outlined below: 06/16/24: GKRS to 1) Right occ 2) Left fr. Primary cancer site : Breast Primary oncologist : Dr. John Albright Current systemic treatment : Gemcitabine Current steroids: None Interval history: 08/05/24 Presents today with son (Will) for follow up with a new MRI brain scan for review. Since last visit, no new neurologic symptoms or concerns. No SOB today. Lives independently and drives without issues. Reports some generalized weakness last few days. No recent illness or fevers. Social History Tobacco Use Smoking status: Never Smokeless tobacco: Never Vaping Use Vaping status: Never Used Substance Use Topics Alcohol use: Yes Comment: occ Drug use: Never PAST MEDICAL HISTORY Diagnosis Date Breast cancer (HCC) Essential hypertension Hypoxemia Ovarian cancer (HCC) Pulmonary embolism (HCC) FAMILY HISTORY Problem Relation Age of Onset Hypertension Mother other (pulmonary embolism) Mother Stroke Father Heart Brother Heart Attack Brother Colon Cancer Maternal Grandmother Heart Maternal Grandfather Prostate Cancer Paternal Grandfather Breast Cancer Maternal Aunt Cancer Maternal Aunt liver Ovarian cancer Maternal cousin Breast Cancer Paternal Aunt Breast Cancer Paternal cousin Breast Cancer Paternal cousin Current Outpatient Medications Medication Sig prochlorperazine (COMPAZINE) 10 mg tablet Take 1 tablet by mouth every 6 hours as needed (For chemotherapy induced nausea and vomiting). hydrOXYzine pamoate (VISTARIL) 25 mg capsule TAKE 1 (ONE) CAPSULE BY MOUTH DAILY AT BEDTIME NEEDED FOR SLEEP calcium carbonate/vitamin D3 (CALCIUM + D ORAL) Take 1 tablet by mouth once daily. apixaban (ELIQUIS) 5 mg tab(s) Take 5 mg by mouth two times a day. hydroCHLOROthiazide 12.5 mg tablet Take 12.5 mg by mouth every morning. ginkgo biloba (GINKOBA ORAL) Take 120 mg by mouth once daily. MULTI-VITAMIN ORAL Take 1 tablet by mouth once daily. GLUCOSAMINE SULFATE (GLUCOSAMINE ORAL) Take 1 tablet by mouth once daily. TURMERIC ROOT EXTRACT ORAL Take 450 mg by mouth once daily. No current facility-administered medications for this visit. REVIEW OF SYSTEMS : Neurological : No complaint of new or worsening headaches + Complaint of migraines, chronic (uses Tylenol prn) No complaint of tinnitus No complaint of decreased hearing No complaint of diplopia No complaints of blurred vision. No complaint of vision loss No complaint of arm/leg numbness or tingling No problem with limb coordination or imbalance No complaint of gait instability No complaint of syncope or LOC or falls No complaints of seizures. + Complaints of memory changes/"chemo brain" No complaint of confusion, or disorientation. General : + Trouble sleeping (on Vistaril) + HTN (on HCTZ) + PE (on Eliquis) Objective PHYSICAL EXAMINATION: BP 118/82 Pulse 111 Ht 165.1 cm (5' 5") Wt 75.4 kg (166 lb 3.6 oz) SpO2 98% BMI 27.66 kg/m? General appearance: Well appearing, alert, in no acute distress, well-hydrated, well nourished. NEUROLOGICAL EXAM: Higher integrative functions: Oriented to person, place AND time. Attention Span and Concentration: Good. Language: Good comprehension. Fund of Knowledge: Good. 2nd CN: Full visual colindres. 3rd,4th,6th CN: Pupils (=), round, react to light, full extraocular movements. 5th CN: No decrease in facial sensation 7th CN: Facial muscles symmetric and strong. 8th CN: Hears finger rub well bilaterally. 9th CN: + Gag not tested 10th CN: Spontaneous palate movement, full and symmetric. 11th CN: Full strength in shoulder shrug. 12th CN: Tongue protrusion full and midline. Sensation: No decrease in sensation in upper or lower limbs to touch. Musculoskeletal: Able to stand and ambulate independently with steady gait. Motor: 5/5, R=L, UE=LE. Coordination: Rapid alternating movements fast and smooth all limbs. IMAGING STUDIES: MRI BRAIN WO/W IVCON IMPRESSION: Nearly resolved left frontal enhancement, decreased right occipital enhancement, and stable faint punctate left temporal enhancement. No new or enlarging metastatic lesions. Drafter: PSCB Transcribe Date/Time: Aug 05 2024 3:07P Dictated by : SHARITA PALOMARES MD This examination was interpreted and the report reviewed and electronically signed by: SHARITA PALOMARES MD on Aug 05 2024 3:16PM EST * * *Final Report* * * DATE OF EXAM: Aug 05 2024 10:53AM [facility] 0295 - MRI BRAIN WO/W IVCON / PROCEDURE REASON: C79.31-Metastasis to brain (HCC) * * * * Physician Interpretation * * * * EXAMINATION: MRI BRAIN WO/W IVCON CLINICAL HISTORY: Metastasis to brain (HCC) TECHNIQUE: Routine brain MRI protocol without and with contrast including diffusion images. Dynamic susceptibility contrast MR perfusion imaging also performed. MQ: MRBWOW_2 Contrast: 15 mL Dotarem IV COMPARISON: 06/16/2024 RESULT: Acute Change: There is no evidence of restricted diffusion to suggest an acute infarct. Hemorrhage: No evidence of prior parenchymal hemorrhage on the susceptibility weighted images. Mass Lesion/ Mass Effect: Series 14 image 75 Curvilinear enhancement right occipital pole, increased from 9 mm Series 14 image 78 punctate enhancement inferior left temporal lobe is stable Series 14 image 45, nearly resolved juxtacortical enhancement left inferior frontal gyrus. No new parenchymal enhancing lesions. No significant mass effect. No focally elevated cerebral blood volume is noted however the lesions are likely below the resolution of perfusion imaging. Chronic Change: Scattered punctate foci of increased T2 and FLAIR signal are noted in the supratentorial white matter which is a nonspecific finding, but likely represents minimal chronic microvascular ischemia. Parenchyma: No significant volume loss for age. The brain parenchyma is otherwise within normal limits of signal intensity and morphology. Ventricles: Normal caliber and morphology. Skull Base: Hypothalamic and pituitary region are grossly normal. Craniocervical junction is normal. No significant marrow replacement process. Vasculature: Major intracranial arterial structures, and dural venous sinuses show typical flow void, suggesting patency by spin echo criteria. Other: The visualized paranasal sinuses and mastoid air cells are clear. The orbits and extracranial soft tissues are unremarkable. KPS SCORE: 90 CNOV Observed: 08/05/2024 1:00 PM Status: COMPLETED Source: [facility] Office Visit (NSBTMA) JOYCE ROBLES ([id number]) 1955 F Date Time Provider Department 08/05/24 1:00 PM LIZET AGUDELO NSBTMA During your visit today, we recorded the following information about you: Pulse Blood pressure Weight Height 111/minute 118/82 75.4 kg 1.651 m Lizet Agudelo APRN.CNP 08/05/2024 5:59 PM [facility] Neurological Prim BRAIN TUMOR CENTER NEURO-ONCOLOGY OUTPATIENT NOTE PURPOSE OF VISIT: Consultation requested by Dr. Swapnil Gonzales for an opinion regarding brain mass and my final recommendations will be communicated to the referring physician by way of shared medical record or letter to requesting physician via [place] mail. CHIEF COMPLAINT : Brain mets MEDICAL DECISION MAKING Assessment AND Plan 1. Brain mets s/p GKRS on 06/16/24 - MRI brain scan today shows decreased size of Right occipital lesion and nearly resolved Left frontal lesion - Noted, stable punctate Left temporal enhancement; not previously treated (series 14, image 78) - Images reviewed with her and her son today - Recommend follow up appointment with a new MRI brain scan in 3 months - Reviewed signs and symptoms that would prompt sooner evaluation - She has our contact information and was advised to call if new symptoms, questions or concerns arise prior to next scheduled visit. - All questions were answered. I spent a total of 45 minutes on the date of the service which included preparing to see the patient, [id number] patient care, completing clinical documentation, obtaining and/or reviewing separately obtained history, performing a medically appropriate examination, counseling and educating the patient/family/caregiver, ordering medications, tests, or procedures, communicating with other HCPs (not separately reported), independently interpreting results (not separately reported), communicating results to the patient/family/caregiver, and care coordination (not separately reported). Lizet Agudelo APRN.SOLE MOLDER Certified Nurse Practitioner cc: Swapnil Gonzales MD AND John Albright MD - [facility] Subjective HISTORY OF PRESENT ILLNESS: Joyce Robles is a very pleasant 69 year old female who is here for a follow-up visit for breast cancer with brain metastases. She is s/p GKRS by Dr. Swapnil Gonzales and Dr. Jessie Clayton as outlined below: 06/16/24: GKRS to 1) Right occ 2) Left fr. Primary cancer site : Breast Primary oncologist : Dr. John Albright Current systemic treatment : Gemcitabine Current steroids: None Interval history: 08/05/24 Presents today with son (Will) for follow up with a new MRI brain scan for review. Since last visit, no new neurologic symptoms or concerns. No SOB today. Lives independently and drives without issues. Reports some generalized weakness last few days. No recent illness or fevers. Social History Tobacco Use Smoking status: Never Smokeless tobacco: Never Vaping Use Vaping status: Never Used Substance Use Topics Alcohol use: Yes Comment: occ Drug use: Never PAST MEDICAL HISTORY Diagnosis Date Breast cancer (HCC) Essential hypertension Hypoxemia Ovarian cancer (HCC) Pulmonary embolism (HCC) FAMILY HISTORY Problem Relation Age of Onset Hypertension Mother other (pulmonary embolism) Mother Stroke Father Heart Brother Heart Attack Brother Colon Cancer Maternal Grandmother Heart Maternal Grandfather Prostate Cancer Paternal Grandfather Breast Cancer Maternal Aunt Cancer Maternal Aunt liver Ovarian cancer Maternal cousin Breast Cancer Paternal Aunt Breast Cancer Paternal cousin Breast Cancer Paternal cousin Current Outpatient Medications Medication Sig prochlorperazine (COMPAZINE) 10 mg tablet Take 1 tablet by mouth every 6 hours as needed (For chemotherapy induced nausea and vomiting). hydrOXYzine pamoate (VISTARIL) 25 mg capsule TAKE 1 (ONE) CAPSULE BY MOUTH DAILY AT BEDTIME NEEDED FOR SLEEP calcium carbonate/vitamin D3 (CALCIUM + D ORAL) Take 1 tablet by mouth once daily. apixaban (ELIQUIS) 5 mg tab(s) Take 5 mg by mouth two times a day. hydroCHLOROthiazide 12.5 mg tablet Take 12.5 mg by mouth every morning. ginkgo biloba (GINKOBA ORAL) Take 120 mg by mouth once daily. MULTI-VITAMIN ORAL Take 1 tablet by mouth once daily. GLUCOSAMINE SULFATE (GLUCOSAMINE ORAL) Take 1 tablet by mouth once daily. TURMERIC ROOT EXTRACT ORAL Take 450 mg by mouth once daily. No current facility-administered medications for this visit. REVIEW OF SYSTEMS : Neurological : No complaint of new or worsening headaches + Complaint of migraines, chronic (uses Tylenol prn) No complaint of tinnitus No complaint of decreased hearing No complaint of diplopia No complaints of blurred vision. No complaint of vision loss No complaint of arm/leg numbness or tingling No problem with limb coordination or imbalance No complaint of gait instability No complaint of syncope or LOC or falls No complaints of seizures. + Complaints of memory changes/"chemo brain" No complaint of confusion, or disorientation. General : + Trouble sleeping (on Vistaril) + HTN (on HCTZ) + PE (on Eliquis) Objective PHYSICAL EXAMINATION: BP 118/82 Pulse 111 Ht 165.1 cm (5' 5") Wt 75.4 kg (166 lb 3.6 oz) SpO2 98% BMI 27.66 kg/m? General appearance: Well appearing, alert, in no acute distress, well-hydrated, well nourished. NEUROLOGICAL EXAM: Higher integrative functions: Oriented to person, place AND time. Attention Span and Concentration: Good. Language: Good comprehension. Fund of Knowledge: Good. 2nd CN: Full visual colindres. 3rd,4th,6th CN: Pupils (=), round, react to light, full extraocular movements. 5th CN: No decrease in facial sensation 7th CN: Facial muscles symmetric and strong. 8th CN: Hears finger rub well bilaterally. 9th CN: + Gag not tested 10th CN: Spontaneous palate movement, full and symmetric. 11th CN: Full strength in shoulder shrug. 12th CN: Tongue protrusion full and midline. Sensation: No decrease in sensation in upper or lower limbs to touch. Musculoskeletal: Able to stand and ambulate independently with steady gait. Motor: 5/5, R=L, UE=LE. Coordination: Rapid alternating movements fast and smooth all limbs. IMAGING STUDIES: MRI BRAIN WO/W IVCON IMPRESSION: Nearly resolved left frontal enhancement, decreased right occipital enhancement, and stable faint punctate left temporal enhancement. No new or enlarging metastatic lesions. Drafter: KEVIN Transcribe Date/Time: Aug 05 2024 3:07P Dictated by : SHARITA PALOMARES MD This examination was interpreted and the report reviewed and electronically signed by: SHARITA PALOMARES MD on Aug 05 2024 3:16PM EST * * *Final Report* * * DATE OF EXAM: Aug 05 2024 10:53AM [facility] 0295 - MRI BRAIN WO/W IVCON / PROCEDURE REASON: C79.31-Metastasis to brain (HCC) * * * * Physician Interpretation * * * * EXAMINATION: MRI BRAIN WO/W IVCON CLINICAL HISTORY: Metastasis to brain (HCC) TECHNIQUE: Routine brain MRI protocol without and with contrast including diffusion images. Dynamic susceptibility contrast MR perfusion imaging also performed. MQ: MRBWOW_2 Contrast: 15 mL Dotarem IV COMPARISON: 06/16/2024 RESULT: Acute Change: There is no evidence of restricted diffusion to suggest an acute infarct. Hemorrhage: No evidence of prior parenchymal hemorrhage on the susceptibility weighted images. Mass Lesion/ Mass Effect: Series 14 image 75 Curvilinear enhancement right occipital pole, increased from 9 mm Series 14 image 78 punctate enhancement inferior left temporal lobe is stable Series 14 image 45, nearly resolved juxtacortical enhancement left inferior frontal gyrus. No new parenchymal enhancing lesions. No significant mass effect. No focally elevated cerebral blood volume is noted however the lesions are likely below the resolution of perfusion imaging. Chronic Change: Scattered punctate foci of increased T2 and FLAIR signal are noted in the supratentorial white matter which is a nonspecific finding, but likely represents minimal chronic microvascular ischemia. Parenchyma: No significant volume loss for age. The brain parenchyma is otherwise within normal limits of signal intensity and morphology. Ventricles: Normal caliber and morphology. Skull Base: Hypothalamic and pituitary region are grossly normal. Craniocervical junction is normal. No significant marrow replacement process. Vasculature: Major intracranial arterial structures, and dural venous sinuses show typical flow void, suggesting patency by spin echo criteria. Other: The visualized paranasal sinuses and mastoid air cells are clear. The orbits and extracranial soft tissues are unremarkable. KPS SCORE: 90 Referring Provider: SWAPNIL GONZALES [[id number]] Allergies As of Date: 08/05/2024 Noted Allergy Reaction ZOFRAN (ONDANSETRON) 07/23/2024 14 - Other: See Comments Comments: Migraines. DEMERAL (MEPERIDINE) 04/01/2016 8 - GI Upset PERCOCET (OXYCODONE-ACETAMINOPHEN)04/01/2016 8 - GI Upset Date Reviewed: 07/23/2024 Reviewed by: Ivy Poon RN - Fully Assessed Reason for Visit: Results - Mri [3561] Primary Visit Diagnosis:Metastasis to brain (HCC) [C79.31] Order(s):MRI BRAIN WO/W IVCON [[id number]] Order #: [id number] FUTURE iv contrast (will be provided with radiology test)MRI Brain Inject, intravenously, once for 1 dose.No IV access, insert saline lock prior to beginning of sedation, infusion, injection of imaging exam.Discontinue saline lock post exam. If Pt. has a central line or IVAD, may access for administration according to line specific nursing protocol.Once exam is complete flush line and de-access according to line specific nursing protocol in the MR contrast administration guidelines linkDisp: 1 EachRfl: 0 Prescriptions as of 08/05/2024 - iv contrast (will be provided with radiology test) MRI Brain Inject, intravenously, once for 1 [...] in the MR contrast administration guidelines link - prochlorperazine (COMPAZINE) 10 mg tablet Take 1 tablet by mouth every 6 hours as needed (For chemotherapy induced nausea and vomiting). - hydrOXYzine pamoate (VISTARIL) 25 mg capsule TAKE 1 (ONE) CAPSULE BY MOUTH DAILY AT BEDTIME NEEDED FOR SLEEP - calcium carbonate/vitamin D3 (CALCIUM + D ORAL) Take 1 tablet by mouth once daily. - apixaban (ELIQUIS) 5 mg tab(s) Take 5 mg by mouth two times a day. - hydroCHLOROthiazide 12.5 mg tablet Take 12.5 mg by mouth every morning. - ginkgo biloba (GINKOBA ORAL) Take 120 mg by mouth once daily. - MULTI-VITAMIN ORAL Take 1 tablet by mouth once daily. - GLUCOSAMINE SULFATE (GLUCOSAMINE ORAL) Take 1 tablet by mouth once daily. - TURMERIC ROOT EXTRACT ORAL Take 450 mg by mouth once daily. 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 (HC*05/04/2024 Malignant pleural effusion [J91.0] 05/04/2024 Malignant neoplasm metastatic to brain (HCC) [C*06/07/2024 Prescriptions ordered this encounter Disp Refills Start End IV CONTRAST (RADIOLOGY PROCEDURE) - * 1 Ea* 0 08/05/2024 08/06/2024 Class: In Office Sig: MRI Brain Inject, intravenously, once for 1 [...] in the MR contrast administration guidelines link Medications Discontinued During This Encounter Prescriptions - dexAMETHasone (DECADRON) 2 mg tablet (Discontinued) Reported on 08/05/2024 - famotidine (PEPCID) 20 mg tablet (Discontinued) Reported on 08/05/2024 - CINNAMON BARK ORAL (Discontinued) Reported on 08/05/2024 Disposition: Return in about 3 months (around 11/03/2024). Follow-up and Disposition History for Encounter Date Provider Department Center 08/05/2024 [id number], [facility] Letter Text Encounter Status:Closed by LIZET AGUDELO on 08/05/24 MRI BRAIN WO/W IVCON Observed: 10:53 AM Status: F Source: [facility] * * *Final Report* * * DATE OF EXAM: Aug 05 2024 10:53AM [facility] 0295 - MRI BRAIN WO/W IVCON / PROCEDURE REASON: C79.31-Metastasis to brain (HCC) * * * * Physician Interpretation * * * * EXAMINATION: MRI BRAIN WO/W IVCON CLINICAL HISTORY: Metastasis to brain (HCC) TECHNIQUE: Routine brain MRI protocol without and with contrast including diffusion images. Dynamic susceptibility contrast MR perfusion imaging also performed. MQ: MRBWOW_2 Contrast: 15 mL Dotarem IV COMPARISON: 06/16/2024 RESULT: Acute Change: There is no evidence of restricted diffusion to suggest an acute infarct. Hemorrhage: No evidence of prior parenchymal hemorrhage on the susceptibility weighted images. Mass Lesion/ Mass Effect: Series 14 image 75 Curvilinear enhancement right occipital pole, increased from 9 mm Series 14 image 78 punctate enhancement inferior left temporal lobe is stable Series 14 image 45, nearly resolved juxtacortical enhancement left inferior frontal gyrus. No new parenchymal enhancing lesions. No significant mass effect. No focally elevated cerebral blood volume is noted however the lesions are likely below the resolution of perfusion imaging. Chronic Change: Scattered punctate foci of increased T2 and FLAIR signal are noted in the supratentorial white matter which is a nonspecific finding, but likely represents minimal chronic microvascular ischemia. Parenchyma: No significant volume loss for age. The brain parenchyma is otherwise within normal limits of signal intensity and morphology. Ventricles: Normal caliber and morphology. Skull Base: Hypothalamic and pituitary region are grossly normal. Craniocervical junction is normal. No significant marrow replacement process. Vasculature: Major intracranial arterial structures, and dural venous sinuses show typical flow void, suggesting patency by spin echo criteria. Other: The visualized paranasal sinuses and mastoid air cells are clear. The orbits and extracranial soft tissues are unremarkable. IMPRESSION: Nearly resolved left frontal enhancement, decreased right occipital enhancement, and stable faint punctate left temporal enhancement. No new or enlarging metastatic lesions. Drafter: KEVIN Transcribe Date/Time: Aug 05 2024 3:07P Dictated by : SHARITA PALOMARES MD This examination was interpreted and the report reviewed and electronically signed by: SHARITA PALOMARES MD on Aug 05 2024 3:16PM EST [id number] PROGRESS Observed: 08/05/2024 10:00 AM Status: COMPLETED Source: [facility] ID: [id number] Author: EWELINA PINO RT(R) Service: Radiology Author Type: Technologist Type: Progress Notes Filed: 08/05/2024 10:20 Note Text: Radiology Service Progress Note DATE OF SERVICE: August 05, 2024 TIME: 10:19 AM PATIENT IDENTITY VERIFICATION COMPLETED USING TWO (2) STANDARD IDENTIFIERS: Name and Date of confirmed by patient verbally and Name and Date of confirmed by identification band. FALL SCREENING: Has the patient had 2 falls in the last year or 1 fall with injury or currently using an Ambulatory Assistive Device (Walker, Cane, Wheelchair, Crutches, etc.)? No PATIENT GENDER DATA: Assigned female at . status: : No status: NO. PATIENT RELEVANT IMPLANT DATA REVIEWED: Yes PATIENT PRESENTS WITH AN IMPLANTABLE OR ATTACHED RETAIL BUYER: No ALLERGIES: Reviewed and unchanged CONTRAST ALLERGY: NO. EXAM: MRI - CONTRAST TYPE: GROUP II PERIPHERAL IV DATA: RAD RN IV RADIOLOGY DEPARTMENT: MR; Exam(s) Completed: Head: Routine Brain with Perfusion SIGNATURE: RT Funmilayo(R) PATIENT NAME: Joyce Robles DATE: August 05, 2024 TIME: 10:19 AM NURSING PROG Observed: 08/05/2024 10:00 AM Status: COMPLETED Source: [facility] HNO ID: [id number] Author: MAGUE VARNER, RN Service: Nursing Author Type: Registered Nurse Type: Nursing Progress Note Filed: 08/05/2024 10:24 Note Text: Radiology Service Progress Note DATE OF SERVICE: August 05, 2024 TIME: 10:24 AM PATIENT WEIGHT: 167 LBS PATIENT IDENTITY VERIFICATION COMPLETED USING TWO (2) STANDARD IDENTIFIERS: Name and Date of confirmed by patient verbally. FALL SCREENING: Has the patient had 2 falls in the last year or 1 fall with injury or currently using an Ambulatory Assistive Device (Walker, Cane, Wheelchair, Crutches, etc.)? No PATIENT GENDER DATA: Assigned female at . status: : No status: NO. ALLERGIES: Reviewed and unchanged CONTRAST ALLERGY: No EXAM: MRI - CONTRAST TYPE: GROUP II IV SITE: Ambulatory: A peripheral IV was started in the Right antecubital site with a Angio cath: 22 gauge. IV SITE APPEARANCE: Clean,Dry and Intact SIGNATURE: Mague Varner RN PATIENT NAME: Joyce Robles DATE: August 05, 2024 TIME: 10:24 AM CBC W AUTO DIFF BLD Collected: 07/30/2024 8:[address] atus: F Source: [facility] Order Comment: Specimen Type : BLOOD SPECIMEN Ordering Facility: [facility] Address: [address] [place] [address] TYPE CODE TESTS RESULT OUT OF RANGE REFERENCE UNITS LAB 6690-2(LOINC) WBC # Bld Auto 2.67 Low 3.70-11.00 k/uL LAB 789-8(LOINC) RBC # Bld Auto 3.38 Low 3.90-5.20 m/ uL LAB 718-7(LOINC) Hgb Bld-mCnc 12.1 11.5-15.5 g/dL LAB 4544-3(LOINC) Hct VFr Bld Auto 34.8 Low 36.0-46.0 % LAB 787-2(LOINC) MCV RBC Auto 103.0 High 80.0-100.0 fL LAB 785-6([facility]) MCH RBC Qn Auto 35.8 High 26.0-34.0 p g LAB 786-4([facility]) MCHC RBC Auto-mCnc 34.8 30.5-36.0 g/dL LAB 73252-1([facility]) RDW RBC-Rto 17.2 High 11.5-15.0 % LAB 777-3([facility]) Platelet # Bld Auto 157 150-400 k/uL LAB 49641-0([facility]) PMV Bld Auto 9.9 9.0-12.7 fL LAB 770-8([facility]) Neutrophils/leuk NFr Bld Auto 56.6 % LAB 751-8([facility]) Neutrophils # Bld Auto 1.51 1.45-7.50 k/uL LAB 736-9([facility]) Lymphocytes/leuk NFr Bld Auto 28.8 % LAB 731-0([facility]) Lymphocytes # Bld Auto 0.77 Low 1.00-4.00 k/uL LAB 5905-5([facility]) Monocytes/leuk NFr Bld Auto 13.5 % LAB 742-7([facility]) Monocytes # Bld Auto 0.36 <0.87 k/uL LAB 713-8([facility]) Eosinophil/leuk NFr Bld Auto 0.0 % LAB 711-2([facility]) Eosinophil # Bld Auto <0.03 <0.46 k/uL LAB 706-2([facility]) Basophils/leuk NFr Bld Auto 0.7 % LAB 704-7([facility]) Basophils # Bld Auto <0.03 <0.11 k/uL LAB 29377-9([facility]) Imm Granulocytes/jose k NFr Bld Auto 0.4 % LAB 57958-8([facility]) Imm Granulocytes # Bld Auto <0.03 <0.10 k/uL LAB 37103-9([facility]) nRBC/100 WBC Bld-Rto 0.7 /100 WBC LAB 771-6([facility]) nRBC # Bld Auto 0.02 High <0.01 k/u L LAB 11063-9([facility]) Differential method Bld Auto Performed By: #### 25699-6 # ### [facility] CLIA [id number] [address] [id number] [place] CANCER AG27-29 SERPL-ACNC Collected: 8:46 AM Status: F Source: [facility] Comment: Specimen Type : BLOOD SPECIMEN Ordering Facility: [facility] Address: [address] [place] [address] TYPE CODE TESTS RESULT OUT OF RANGE REFERENCE UNITS LAB 88518-0(LOINC) Cancer Ag27-29 SerPl-aCnc 1045.0 High <38.6 U/mL Result Comment: The CA27.29 test was performed using the Siemens Sonicsaur XP chemiluminometric immunoassay method. Results obtained with different assay methods or kits cannot be used interchangeably. Performed By: #### 49283-6 # ### [facility] CLIA [id number] [address] [place] [address] [place] VIT B12 SERPL-MCNC Collected: 07/30/2024 8:46 AM Sta tus: F Source: [facility] Comment: Specimen Type : BLOOD SPECIMEN Ordering Facility: [facility] Address: [address] [place] [address] TYPE CODE TESTS RESULT OUT OF RANGE REFERENCE UNITS LAB 2132-9(LOINC) Vit B12 SerPl-mCnc 1435 High 232-1245 pg/mL Performed By: #### 2284-8, 3 016-3, 9, 6874-9 #### [facility] CLIA [id number] [address] [place] [address] [place] FOLATE SERPL-MCNC Collected: 07/30/2024 8:46 AM Stat us: F Source: [facility] Comment: Specimen Type : BLOOD SPECIMEN Ordering Facility: [facility] Address: [address] [place] [address] TYPE CODE TESTS RESULT OUT OF RANGE REFERENCE UNITS LAB 2284-8(LOINC) Folate SerPl-mCnc 14.0 >4.7 ng/mL Performed By: #### 2284-8, 3 016-3, 2132-03, 9 #### [facility] CLIA [id number] [address] [place] [address] [place] TSH SERPL-ACNC Collected: 8:46 AM Status: F Source: [facility] Comment: Specimen Type : BLOOD SPECIMEN Ordering Facility: [facility] Address: [address] [place] [address] TYPE CODE TESTS RESULT OUT OF RANGE REFERENCE UNITS LAB 3016-3(LOINC) TSH SerPl-aCnc 2.690 0.270-4.200 mIU/L Performed By: #### 2284-8, 3 016-3, 2132-03, 9 #### [facility] CLIA [id number] [address] [place] [address] [place] CANCER AG15-3 SERPL-ACNC Collected: 8:46 AM Status: F Source: [facility] Comment: Specimen Type : BLOOD SPECIMEN Ordering Facility: [facility] Address: [address] [place] [address] TYPE CODE TESTS RESULT OUT OF RANGE REFERENCE UNITS LAB 6875-9(LOINC) Cancer Ag15-3 SerPl-aCnc 662.6 High <26.0 U/mL Result Comment: The CA 15-3 test methodology used is the Electrochemiluminescence Immunoassay by [employer]. Results obtained with different methods or kits cannot be used interchangeably. Performed By: #### 2284-8, 3 016-3, 2132-03, 6875-03 #### [facility] CLIA [id number] [address] [place] [address] [place] COMP METAB 2000 PNL SERPL Collected: 8:46 AM Status: F Source: [facility] Comment: Specimen Type : BLOOD SPECIMEN Ordering Facility: [facility] Address: [address] [place] [address] TYPE CODE TESTS RESULT OUT OF RANGE REFERENCE UNITS LAB 2885-2(LOINC) Prot SerPl-mCnc 5.6 Low 6.3-8.0 g/dL LAB 1751-7(LOINC) Albumin SerPl-mCnc 3.2 Low 3.9-4.9 g/dL LAB 24303-4(LOINC) Calcium SerPl-mCnc 9.6 8.5-10.2 mg/dL LAB 1975-2(LOINC) Bilirub SerPl-mCnc 0.4 0.2-1.3 mg/dL LAB 6768-6(LOINC) ALP SerPl-cCnc 84 34-123 U/L LAB 1920-8(LOINC) AST SerPl-cCnc 31 13-35 U/L LAB 1742-6(LOINC) ALT SerPl-cCnc 32 7-38 U/L LAB 2345-7(LOINC) Glucose SerPl-mCnc 124 High 74-99 mg/dL Result Comment: The [place] Diabetes Association (ADA) provides guidance for cutoff values for fasting glucose and random glucose. The ADA defines fasting as no caloric intake for at least 8 hours. Fasting plasma glucose results between 100 to 125 mg/dL indicate increased risk for diabetes (prediabetes). Fasting plasma glucose results greater than or equal to 126 mg/dL meet the criteria for diagnosis of diabetes. In the absence of unequivocal hyperglycemia, results should be confirmed by repeat testing. In a patient with classic symptoms of hyperglycemia or hyperglycemic crisis, random plasma glucose results greater than or equal to 200 mg/dL meet the criteria for diagnosis of diabetes. Reference: Standards of Medical Care in Diabetes 2016, [place] Diabetes Association. Diabetes Care. 2016.39(Suppl 1). LAB 3094-0(LOINC) BUN SerPl-mCnc 13 7-21 mg/ dL LAB 2160-0(LOINC) Creat SerPl-mCnc 0.68 0.58-0.96 mg/dL LAB 2951-2(LOINC) Sodium SerPl-sCnc 137 136-144 mmol/L LAB 2823-3(LOINC) Potassium SerPl-sCnc 3.9 3.7-5.1 mmol/L LAB 2075-0(LOINC) Chloride SerPl-sCnc 99 98-107 mmol/L LAB 8-9(LOINC) CO2 SerPl-sCnc 28 22-30 mmo l/L LAB 36111-1(LOINC) Anion Gap SerPl-sCnc 10 8-15 mmol/L LAB 75905-9(LOINC) Creatinine + eGFR Pnl SerPlBld 94 >=60 mL/min/1 .73m??? Result Comment: Estimated Gl omerular Filtration Rate (eGFR) is calculated using the 2020 CKD-EPI creatinine equation. This equation utilizes serum creatinine, sex, and age as parameters. The creatinine assay has traceable calibration to isotope dilution-mass spectrometry. Refer to KDIGO guidelines for clinical interpretation. In patients with unstable renal function, e.g. those with acute kidney injury, the eGFR may not accurately reflect actual GFR. Performed By: #### 90382-6, 98102-1 #### [facility] CLIA [id number] [address] [place] [address] OF [facility] MAGNESIUM SERPL-MCNC Collected: 07/30/2024 8:46 AM S tatus: F Source: [facility] Order Comment: Specimen Type : BLOOD SPECIMEN Ordering Facility: [facility] Address: [address] [place] [address] TYPE CODE TESTS RESULT OUT OF RANGE REFERENCE UNITS LAB 36736-3([facility]) Magnesium SerPl-mCnc 1.7 1.7-2.3 mg/dL Performed By: #### 16515-0, 72044-0 #### [facility] CLIA [id number] [address] [place] [address] [place] METHYLMALONATE SERPL-SCNC Collected: 07/30/2024 8:46 AM Status: F Source: [facility] Comment: Specimen Type : BLOOD SPECIMEN Ordering Facility: [facility] Address: [address] [place], [place] [address] TYPE CODE TESTS RESULT OUT OF RANGE REFERENCE UNITS LAB 41407-1(INC ) Methylmalonate SerPl-sCnc 0.20 <=0.40 umol/L Result Comment: This test wa s developed, and its performance characteristics determined by the [facility] Department of Pathology and Laboratory Medicine. It has not been cleared or approved by the FDA. The [facility] Department of Pathology and Laboratory Medicine is regulated under CLIA as qualified to perform high-complexity testing. This test is used for clinical purposes. It should not be regarded as investigational or for research. Performed By: #### 43401-7 # ### [facility] CLIA [id number] [address] [place] [address] [place] MARYBELN Observed: 07/26/2024 12:00 AM Status: COMPLETED Source: [facility] Telephone (HEMAWS) JOYCE ROBLES ([id number]) 1955 F Date Time Provider Department 07/26/24 JIMMIE CREWS During your visit today, we recorded the following information about you: Jimmie Crews RN 07/26/2024 11:07 AM Signed CYCLE 1/DAY 1 POST TREATMENT CALL Today's date: July 26, 2024 Treatment Regimen: gemzar C1D1 Date: 07/23/24 Called patient to follow-up on symptom management, no answer, left a VM requesting a call back from patient. VÍCTOR Magallon Brandy 07/26/2024 2:18 PM Signed Patient returned your phone call. I told her you were with another patient and that you would call her back again later and she stated understanding. Jimmie Barrios RN 07/26/2024 3:49 PM Signed CYCLE 1/DAY 1 POST TREATMENT CALL Today's date: July 26, 2024 Treatment Regimen: Gemzar C1D1 Date: 07/23/24 Called patient to follow-up on symptom management. Spoke with patient SYMPTOM ASSESSMENT Neuro: None CV/Resp: Shortness of breath: better because she had a thoracentesis today. Denies pain with deep breathing. Cough: after thoracentesis GI/: Nausea yes started yesterday and had two episodes of emesis. Nauseous today. Taking compazine PRN. Patient feels she gets relief after taking. Patient took the first 1-2 days and then discontinued because she was feeling well. Patient stated she was spitting up after drinking water. Patient is not able to take Zofran because it causes "pounding headaches". Denies diarrhea, feels "slightly constipated". Patient was taking stool softeners and has had small bowel movements. Heartburn: "a little, nothing serious", denies feeling nauseous when she wakes up in the morning. Patient is not taking pepcid, informed she can take if needed. Integument: None Activity: Patient reported decreased energy level Pain: Intermittent tenderness 4/10 in the "left rib area". Also has an intermittent 2-3/10 pain in the "lung/pleural area". Feels like someone is applying pressure with their thumb. Fever: No Chills: No Patient stated she "doesn't feel great". Patient stated she went in for a thoracentesis today; 1320 ml was removed from right side. Patient is scheduled for another thoracentesis tomorrow to drain the left side. Any new referrals needed? No Reinforced CURRENT treatment education based on current and anticipated symptoms. Discussed port/line care and patient verbalizes understanding: Not Applicable Patient instructed to contact office or after hours Hematology/Oncology fellow for: temperature >= 100.4; questions or concerns. Patient verbalized understanding of when to seek medical attention and after hours number protocol. VÍCTOR Magallon Amber, RN 07/27/2024 12:11 PM Signed [facility] Care Coordination FOLLOW-UP NOTE Patient identified by name and date of . YES Spoke to patient PET scan was cancelled because she had scrambled eggs today. They will reach out to her to reschedule the appointment. Patient had the thoracentesis today and around 500 ml was removed from the left side. Patient stated she is breathing better. Denies nausea. Took 1/2 compazine today. Informed patient of Dr. Albright's response about continuing treatment and hopefully she will notice a decrease in fluid accumulation/less frequent thoracentesis. Patient stated understanding. Care Coordination Plan: No further follow up needed at this time Jimmie Crews RN July 27, 2024 Jimmie Crews RN 07/29/2024 12:03 PM Addendum [facility] Care Coordination FOLLOW-UP NOTE Spoke to patient Patient called in asking if we can give her "some electrolytes" during her infusion tomorrow to help alleviate some of the weakness/fatigue that she experienced after her last treatment. Patient informed her electrolytes would need to be low to warrant replacement. Patient stated the fatigue was pretty severe after her treatment and interfered with her quality of life. Patient informed this nurse will discuss with Dr. Albright. Maybe we can add a pre-med like dexamethasone or a prescription for her to take after treatment to help alleviate the fatigue and nausea symptoms that occurred a couple days after treatment? Will discuss with Dr. Albright and contact patient with an update. Care Coordination Plan: Will follow up after speaking to Dr. Albright. Jimmie Crews RN July 29, 2024 John Albright DO 07/29/2024 12:42 PM Signed Having tomorrow's Hgb may help determine if anemia contributing. She had mild macrocytosis on baseline CBC last week. Please pend orders for B12, MMA, TSH, serum folate for tomorrow's labs as well as a magnesium. I will put in electrolyte orders and she can get electrolyte replacement if indicated. DO Natalee Bautista Paul A, DO 07/29/2024 12:43 PM Signed Addended by: JOHN ALBRIGHT on: 07/29/2024 12:43 PM Modules accepted: Jimmie Cortes RN 07/29/2024 12:56 PM Addendum Called patient, no answer, left a VM requesting a call back. Appointment notes added. VÍCTOR Magallon Amber, RN 07/29/2024 12:57 PM Signed Addended by: JIMMIE CREWS on: 07/29/2024 12:57 PM Modules accepted: Jimmie Cortes RN 07/29/2024 1:06 PM Signed Patient called back and informed of Dr. Albright's response, stated understanding. VÍCTOR Magallon Amber, RN 07/29/2024 4:03 PM Signed Can we attach the labs that were ordered today to patients lab appointment tomorrow? Thank you. Jimmie Crews RN Allergies As of Date: 07/26/2024 Noted Allergy Reaction ZOFRAN (ONDANSETRON) 07/23/2024 14 - Other: See Comments Comments: Migraines. 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 Take 2 mg (1 tablet) three times a day for 2 days. Take 2 mg (1 tablet) twice a day for 2 days. Take 2 mg (1 tablet) once a day for 2 days. Then stop Decadron. Patient should start on June 17, 2024. - famotidine (PEPCID) 20 mg tablet Take 1 tablet by mouth two times a day. Stop the pepcid when you stop the decadron. - prochlorperazine (COMPAZINE) 10 mg tablet Take 1 tablet by mouth every 6 hours as needed (For chemotherapy induced nausea and vomiting). - hydrOXYzine pamoate (VISTARIL) 25 mg capsule TAKE 1 (ONE) CAPSULE BY MOUTH DAILY AT BEDTIME NEEDED FOR SLEEP - calcium carbonate/vitamin D3 (CALCIUM + D ORAL) Take 1 tablet by mouth once daily. - apixaban (ELIQUIS) 5 mg tab(s) Take 5 mg by mouth two times a day. - CINNAMON BARK ORAL Take 1 tablet by mouth once daily. - hydroCHLOROthiazide 12.5 mg tablet Take 12.5 mg by mouth every morning. - ginkgo biloba (GINKOBA ORAL) Take 120 mg by mouth once daily. - MULTI-VITAMIN ORAL Take 1 tablet by mouth once daily. - GLUCOSAMINE SULFATE (GLUCOSAMINE ORAL) Take 1 tablet by mouth once daily. - TURMERIC ROOT EXTRACT ORAL Take 450 mg by mouth once daily. Problem List As Of Date 07/26/2024 Noted Resolved Abnormal mammogram [R92.8] 04/01/2016 Malignant neoplasm of upper-outer quadrant of l*04/08/2016 Fat necrosis [M79.89] 01/06/2017 BRCA2 gene mutation positive [Z15.01, Z15.09] 04/07/2024 History of ovarian cancer [Z85.43] 04/07/2024 Pulmonary embolus (HCC) [I26.99] 04/07/2024 Carcinoma of left breast metastatic to bone (HC*05/04/2024 Malignant pleural effusion [J91.0] 05/04/2024 Malignant neoplasm metastatic to brain (HCC) [C*06/07/2024 Medications Discontinued During This Encounter Prescriptions - olaparib (LYNPARZA) 150 mg tablet (Discontinued) Reported on 07/23/2024 Encounter Status:Closed by JIMMIE CREWS on 07/27/24 [place]ARYBELN Observed: 07/23/2024 12:00 AM Status: COMPLETED Source: [facility] Telephone (HEMAWS) JOYCE ROBLES ([id number]) 1955 F Date Time Provider Department 07/23/24 JOHN ALBRIGHT During your visit today, we recorded the following information about you: Ivy Poon, VÍCTOR 07/23/2024 1:48 PM Signed Pt having dental work done in 2 weeks. States she will be getting a mold for 2 teeth on the R side of her mouth. Wanted to make sure this would be OK. Please advise. Dentist is Dr. Jose A Cho [phone] John Albrigth DO 07/23/2024 5:00 PM Signed Yes that would be perfectly fine. Sounds like this is not an invasive procedure but if Dr. Cho may want clearance as far as her blood thinners, so we should call his office and ask if she needs to hold her apixaban and if so I can give the instructions/clearance. DO Kd Bautista Pamela S, LPN 07/26/2024 8:50 AM Signed Spoke with Zakiya in Dr. Musa office, she states they are doing prep work on 2 teeth for placement of crowns. Informed pt. Is on Eliquis, (Doesn't need held ) and treatment of Gemzar. Spoke with Dr. Albright neither needs to be held due to dental plans. Zakiya @ Dr. Musa office notified. Joyce Mejía LPN Allergies As of Date: 07/23/2024 Noted Allergy Reaction ZOFRAN (ONDANSETRON) 07/23/2024 14 - Other: See Comments Comments: Migraines. DEMERAL (MEPERIDINE) 04/01/2016 8 - GI Upset PERCOCET (OXYCODONE-ACETAMINOPHEN)04/01/2016 8 - GI Upset Date Reviewed: 07/23/2024 Reviewed by: Ivy Poon, RN - Fully Assessed Reason for Visit: Patient Question [1477] Prescriptions as of 07/26/2024 - dexAMETHasone (DECADRON) 2 mg tablet Start the day after your Gamma Knife procedure: Decadron 2 mg tabs Take 4 mg (2 tablets) twice a day for 4 days. Take 2 mg (1 tablet) three times a day for 2 days. Take 2 mg (1 tablet) twice a day for 2 days. Take 2 mg (1 tablet) once a day for 2 days. Then stop Decadron. Patient should start on June 17, 2024. - famotidine (PEPCID) 20 mg tablet Take 1 tablet by mouth two times a day. Stop the pepcid when you stop the decadron. - prochlorperazine (COMPAZINE) 10 mg tablet Take 1 tablet by mouth every 6 hours as needed (For chemotherapy induced nausea and vomiting). - hydrOXYzine pamoate (VISTARIL) 25 mg capsule [...] 120 mg by mouth once daily. - MULTI-VITAMIN ORAL Take 1 tablet by mouth once daily. - GLUCOSAMINE SULFATE (GLUCOSAMINE ORAL) Take 1 tablet by mouth once daily. - TURMERIC ROOT EXTRACT ORAL Take 450 mg by mouth once daily. Problem List As Of Date 07/23/2024 Noted Resolved Abnormal mammogram [R92.8] 04/01/2016 Malignant neoplasm of upper-outer quadrant of l*04/08/2016 Fat necrosis [M79.89] 01/06/2017 BRCA2 gene mutation positive [Z15.01, Z15.09] 04/07/2024 History of ovarian cancer [Z85.43] 04/07/2024 Pulmonary embolus (HCC) [I26.99] 04/07/2024 Carcinoma of left breast metastatic to bone (HC*05/04/2024 Malignant pleural effusion [J91.0] 05/04/2024 Malignant neoplasm metastatic to brain (HCC) [C*06/07/2024 Encounter Status:Closed by JOYCE MEJÍA on 07/26/24 PROGRESS Observed: 07/21/2024 2:33 PM Status: COMPLETED Source: [facility] HNO ID: [id number] Author: JIMMIE CREWS RN Service: ? Author Type: Registered Nurse Type: Progress Notes Filed: 07/21/2024 14:37 Note Text: This visit was completed by phone. ONCOLOGY PATIENT EDUCATION NOTE TOPIC: Chemotherapy, Medications: Gemzar patient called today for education for treatment of Breast Cancer Anticipated/Scheduled start date: 07/23/24 READINESS TO LEARN: COGNITIVE ABILITY: Alert and oriented MOTIVATION TO LEARN: Interested FAMILY SUPPORT: Unable to assess - Family not present INSTRUCTION PROVIDED TO: Patient INSTRUCTION PROVIDED BY: Nurse Coordinator PATIENT LEARNS BEST BY: Multiple Methods FACTORS AFFECTING LEARNING: None PHYSICAL LIMITATIONS AFFECTING LEARNING: None LEARNING RESPONSE METHOD OF INSTRUCTION: Individual instruction Written instruction/Handouts Verbal instruction PATIENT/FAMILY RESPONSE: Verbalizes understanding of: CHEMOTHERAPY-Regimen, toxicity and side effects FOLLOW UP PLAN: Patient instructed to call with any further issues Recommend - Recommend continued instruction and follow up as directed Follow up phone call. Contact information given. SUPPLEMENTAL MATERIAL: Written material was provided at this visit with the following information: - Chemotherapy education was provided by a pharmacist NO - Side effect management information was provided/discussed including but not limited to: anemia, appetite changes, bowel habit changes, diet, fatigue, mouth hygiene, nausea/vomitting, neutropenia, rash, thrombocytopenia YES - Provided important phone numbers and contacts during and after hours. YES - Provided information on symptoms that require immediate assistance. YES - Provided Chemotherapy "when to call" handouts YES - Preventing infection. YES - Treatment schedule and confirmation of appointment times. YES - Available support groups. YES- information sheet provided in binder. - The importance of contraception during the course of chemotherapy YES - Neutropenic fever protocol discussed with patient, which included the importance of reporting any fever of 100.4F (38.0C) or greater to the healthcare team as noted on the provided wallet card and/or magnet. YES Time Spent: 50 minutes REFERRAL (RECOMMENDATION): N/A Jimmie Crews RNCare Coordinator Pre Chemo Patient identified by name and date of . YES Confirmed date and time for chemotherapy ? YES Other appointments (labs, imaging) discussed? 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 NO Described the infusion room and what to expect. YES Discussed whether the patient can eat prior to labs and treatment. YES Who is driving you to and from treatment? Patient will call a family member to see if they can drop her off and pick her up for C1D1. Discussed why it is important to bring someone with you. Yes, for the first treatment- ride. Resources discussed (music therapy, Art therapy, pet therapy, etc.) NO Education on chemotherapy (drug, side effects) discussed and that the patient will be receiving a C1D1 call within 7 days of treatment. YES Other topics discussed, interventions needed: VÍCTOR Magallon Observed: 07/21/2024 12:00 AM Status: COMPLETED Source: [facility] Telephone ([employer]) TIFFANIEJOYCE Pantoja ([id number]) 1955 F Date Time Provider Department 07/21/24 JOHN ALBRIGHT During your visit today, we recorded the following information about you: Shanon Bruno LPN 07/21/2024 9:22 AM Signed Pt contacted [facility] asking to schedule a thoracentesis prior to her next scheduled thoracentesis (Q2W) [facility] calls asking for a new order for weekly or as needed. She is scheduled for tomorrow. Fax order to [phone] ELA Tan Paul A, 07/21/2024 10:51 AM Signed Thank you. Order filed. 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 Take 2 mg (1 tablet) three times a day for 2 days. Take 2 mg (1 tablet) twice a day for 2 days. Take 2 mg (1 tablet) once a day for 2 days. Then stop Decadron. Patient should start on June 17, 2024. - famotidine (PEPCID) 20 mg tablet Take 1 tablet by mouth two times a day. Stop the pepcid when you stop the decadron. - prochlorperazine (COMPAZINE) 10 mg tablet Take 1 tablet by mouth every 6 hours as needed (For chemotherapy induced nausea and vomiting). - hydrOXYzine pamoate (VISTARIL) 25 mg capsule [...] 120 mg by mouth once daily. - MULTI-VITAMIN ORAL Take 1 tablet by mouth once daily. - GLUCOSAMINE SULFATE (GLUCOSAMINE ORAL) Take 1 tablet by mouth once daily. - TURMERIC ROOT EXTRACT ORAL Take 450 mg by mouth once daily. Problem List As Of Date 07/21/2024 Noted Resolved Abnormal mammogram [R92.8] 04/01/2016 Malignant neoplasm of upper-outer quadrant of l*04/08/2016 Fat necrosis [M79.89] 01/06/2017 BRCA2 gene mutation positive [Z15.01, Z15.09] 04/07/2024 History of ovarian cancer [Z85.43] 04/07/2024 Pulmonary embolus (HCC) [I26.99] 04/07/2024 Carcinoma of left breast metastatic to bone (HC*05/04/2024 Malignant pleural effusion [J91.0] 05/04/2024 Malignant neoplasm metastatic to brain (HCC) [C*06/07/2024 Encounter Status:Closed by SELIN GARNICA on 07/21/24 CNPN Observed: 07/21/2024 12:00 AM Status: COMPLETED Source: [facility] Telephone ([employer]) JOYCE ROBLES ([id number]) 1955 F Date Time Provider Department 07/21/24 JIMMIE CREWS During your visit today, we recorded the following information about you: Jimmie Crews RN 07/21/2024 3:38 PM Signed Spoke to patient, completed chemo [facility] Dr. Albright- Patient is asking if it's necessary to repeat labs on Friday since she just had labs yesterday. PSS-Patient will also need to be scheduled for a lab appointment prior to treatment on 08/19. Thank you. Thank you. VÍCTOR Magallon Paul A, DO 07/21/2024 4:40 PM Signed No need to repeat labs for day 1. Okay to use those from 07/20. DO Kd Bautista Pamela S, LPN 07/22/2024 8:27 AM Signed PSS-Patient will also need to be scheduled for a lab appointment prior to treatment on 08/19. Thank you. No need contacting pt.. 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 When here Sunday 07/23. Pt. Also aware she does not need labs Friday prior to treatment, appt. Canceled. 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 Take 2 mg (1 tablet) three times a day for 2 days. Take 2 mg (1 tablet) twice a day for 2 days. Take 2 mg (1 tablet) once a day for 2 days. Then stop Decadron. Patient should start on June 17, 2024. - famotidine (PEPCID) 20 mg tablet Take 1 tablet by mouth two times a day. Stop the pepcid when you stop the decadron. - prochlorperazine (COMPAZINE) 10 mg tablet Take 1 tablet by mouth every 6 hours as needed (For chemotherapy induced nausea and vomiting). - hydrOXYzine pamoate (VISTARIL) 25 mg capsule [...] 120 mg by mouth once daily. - MULTI-VITAMIN ORAL Take 1 tablet by mouth once daily. - GLUCOSAMINE SULFATE (GLUCOSAMINE ORAL) Take 1 tablet by mouth once daily. - TURMERIC ROOT EXTRACT ORAL Take 450 mg by mouth once daily. Problem List As Of Date 07/21/2024 Noted Resolved Abnormal mammogram [R92.8] 04/01/2016 Malignant neoplasm of upper-outer quadrant of l*04/08/2016 Fat necrosis [M79.89] 01/06/2017 BRCA2 gene mutation positive [Z15.01, Z15.09] 04/07/2024 History of ovarian cancer [Z85.43] 04/07/2024 Pulmonary embolus (HCC) [I26.99] 04/07/2024 Carcinoma of left breast metastatic to bone (HC*05/04/2024 Malignant pleural effusion [J91.0] 05/04/2024 Malignant neoplasm metastatic to brain (HCC) [C*06/07/2024 Encounter Status:Closed by SELIN GARNICA on 07/22/24 XR CHEST 2V FRONTAL/LAT Observed: 2024 12:21 PM Status: F Source: [facility] * * *Final Report* * * DATE OF EXAM: Jul 20 2024 12:21PM WRX [id number] - XR CHEST 2V FRONTAL/LAT / PROCEDURE REASON: multiple diagnoses * * * * Physician Interpretation * * * * EXAMINATION: CHEST RADIOGRAPH (2 VIEW FRONTAL and LATERAL) CLINICAL HISTORY: 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 Lungs and pleura: There is still remains opacification within the right mid to lower chest at the left base suspicious for pleural effusion, underlying processes not excluded. No pneumothorax.. Cardiomediastinal silhouette: Grossly stable cardiomediastinal silhouette. Bones and soft tissues: Unremarkable. IMPRESSION: As above Drafter: PSCB Transcribe Date/Time: Jul 20 2024 4:03P Dictated by : STEPHANIE JARAMILLO MD This examination was interpreted and the report reviewed and electronically signed by: STEPHANIE JARAMILLO MD on Jul 20 2024 4:03PM EST [id number] Observed: 07/20/2024 11:50 AM Status: COMPLETED Source: [facility] HNO ID: [id number] Author: PAZ SOLOMON RT(R) Service: ? Author Type: Technologist Type: Progress Notes Filed: 07/20/2024 15:06 Note Text: Radiology Service Progress Note PATIENT NAME: Joyce Robles DATE OF SERVICE: July 20, 2024 TIME: 3:06 PM PATIENT IDENTITY VERIFICATION COMPLETED USING TWO [...] PATIENT PRESENTS WITH AN IMPLANTABLE OR ATTACHED RETAIL BUYER: No RADIOLOGY DEPARTMENT: General X-ray: Exam(s) Completed: Chest X-Ray PERIPHERAL IV DATA: Not applicable SIGNED BY: Paz Ryanloulou RT(R) July 20, 2024 3:06 PM CNOVSP Observed: 07/20/2024 11:10 AM Status: COMPLETED Source: [facility] Visit (SP) Office (HEMAWS) JOYCE ROBLES ([id number]) 1955 F Date Time Provider Department 07/20/24 11:10 AM JOHN ALBRIGHT During your visit today, we recorded the following information about you: Temperature Pulse Blood pressure Weight 98.6 degrees 113/minute 151/80 80.3 kg John Albright DO 07/20/2024 12:23 PM Signed Oncologic problem(s): 1) MBC. 2) History of ovarian cancer. 3) Germline BRCA2 mutation. HPI: The patient is a 69-year-old female with a past medical history as [...] 2016. The pathology demonstrated a 2.5 cm ER/IA positive, HER2 negative tumor in the left breast with micro metastasis in 1 of 3 sentinel lymph nodes (0.8 mm). Overall grade was 3. Lymphovascular invasion was present. Closest margin was 2 mm from anterior margin. ER was positive greater than 95%. IA positive greater than 95% with moderate to strong staining intensity. HER2 was equivocal 1-2+; nonamplified by FISH testing. She declined adjuvant chemotherapy but received adjuvant radiation. Was started on AI with anastrozole beginning 10/2016. Was found to have germline BRCA2 mutation. She had declined prophylactic mastectomy and had been undergoing screening for breast cancer. Recently presented to [facility] on 03/12/2024 with a complaint of increasing shortness of breath. Prior to that she had been on a 10-day trip to [place]. CTA of the chest same day demonstrated [...] to 2 miles a day. [facility]. Son in [place]--helps with house and yard. Daughter in [place]. about 3 years ago. No chest pain. 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 Presents for ongoing oncologic management. Interim history: Most recent right-sided thoracentesis was on 07/15/2024. 1960 mL of clear yellow fluid drained. Has been holding apixaban the day prior to thoracentesis only. Feels "wiped out" with poor feeling well being on olaparib. More short of breath last few days. No cough or chest pain. PAST MEDICAL HISTORY Diagnosis Date Breast cancer (HCC) Essential hypertension Hypoxemia Ovarian cancer (HCC) Pulmonary embolism (HCC) Osteoporosis. Had been on alendronate. PAST SURGICAL HISTORY Procedure Laterality Date BSO W/ITESHA AND OMENECTOMY FOR MALIGNANCY 07/14/2012 BX BREAST W/DEVICE 1ST LESION ULTRASOUND GUID Left 04/04/2016 U/S Bx outer mid left breast BX/EXC LYMPH NODE OPEN DEEP AXILLARY NODE Left 04/29/2016 HYSTERECTOMY HX 2009 LX PARTIAL COLECTOMY 07/14/2012 MASTECTOMY, PARTIAL Left 04/29/2016 PAST SURGICAL HISTORY OF Left ablation of vein of left leg for venous reflux dexAMETHasone (DECADRON) 2 mg tablet Start the day after your Gamma Knife procedure: Decadron 2 mg tabs Take 4 mg (2 tablets) twice a day for 4 days. Take 2 mg (1 tablet) three times a day for 2 days. Take 2 mg (1 tablet) twice a day for 2 days. Take 2 mg (1 tablet) once a day for 2 days. Then stop Decadron. Patient should start on June 17, 2024. famotidine (PEPCID) 20 mg tablet Take 1 tablet by mouth two times a day. Stop the pepcid when you stop the decadron. prochlorperazine (COMPAZINE) 10 mg tablet Take 1 tablet by mouth every 6 hours as needed (For chemotherapy induced nausea and vomiting). hydrOXYzine pamoate (VISTARIL) 25 mg capsule TAKE 1 (ONE) CAPSULE BY MOUTH DAILY AT BEDTIME NEEDED FOR SLEEP calcium carbonate/vitamin D3 (CALCIUM + D ORAL) Take 1 tablet by mouth once daily. olaparib (LYNPARZA) 150 mg tablet Take 2 tablets (300mg) by mouth two times a day. apixaban (ELIQUIS) 5 mg tab(s) Take 5 mg by mouth two times a day. CINNAMON BARK ORAL Take 1 tablet by mouth once daily. hydroCHLOROthiazide 12.5 mg tablet Take 12.5 mg by mouth every morning. ginkgo biloba (GINKOBA ORAL) Take 120 mg by mouth once daily. MULTI-VITAMIN ORAL Take 1 tablet by mouth once daily. GLUCOSAMINE SULFATE (GLUCOSAMINE ORAL) Take 1 tablet by mouth once daily. TURMERIC ROOT EXTRACT ORAL Take 450 mg by mouth once daily. ALLERGIES Allergen Reactions Demeral [Meperidine] GI Upset [...] Normal mood. PHYSICAL EXAM: Vitals: Blood pressure 151/80, pulse 113, temperature 37 ?C (98.6 ?F), temperature source Temporal, weight 80.3 kg (177 lb), SpO2 95%. Well-appearing and in no acute distress. EYES: Sclerae are anicteric bilaterally. LYMPHATIC: There is no palpable adenopathy. RESPIRATORY: Diminished breath sounds right and left base--right more so. CARDIOVASCULAR: Rhythm is regular. BREAST: Deferred. ABDOMEN: The abdomen is nondistended. Extremities: No swelling or edema. SKIN: No jaundice. LABS: Most recent lab work from 03/13/2024 from [facility] reviewed. Hemoglobin 13.5 g/dL. White count 6900. Platelet count 171,000. Chemistry significant for serum creatinine 0.52 mg/dL. Calcium 8.7 mg/dL. Magnesium 1.7 mg/dL. Albumin low at 2.6 g/dL. Total protein 5.8 g/dL. Hepatocellular enzymes, alkaline phosphatase and total bilirubin normal. LDH 217. IMAGING: PET [facility]: PET scan demonstrated skeletal metastases including right iliac wing, left acetabulum, left sacral parris in the region of the fifth thoracic vertebra. There was also increased tracer concentration in the left hemithorax at the pleural interface fulfilling quantitative criteria for viable neoplasm. MRI brain [facility]: Small focal enhancing nodule measuring 4 mm along the posterior lateral aspect of the right occipital lobe with minimal surrounding edema. Genetic testing: BRCA2 mutation. 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 Elacestrant. -PIK3CA mutation. Alpelisib plus fulvestrant or capivaertib plus fulvestrant -BRCA2 mutation. -TP53 mutation (0.2%). 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 Assessment: -Metastatic recurrence of pT2b N1 WI (SN) ER/IA positive, HER2 negative invasive ductal carcinoma of the left breast. -Right-sided malignant pleural effusion. -History of ovarian cancer. -She is in need of 1 tooth extraction. Scheduled for next week. -Not tolerating olaparib well. -Relatively quick reaccumulation pleural effusion--olaparib not working. -Discussed Elacestrant but needs quick control of disease. Does not want to receive paclitaxel or lose hair. Therefore recommended gemcitabine with the goal of controlling disease and then perhaps rotating to elacestrant pending response/tolerance to gemcitabine. -I discussed the rationale, logistics, potential risks (including but not limited to fatigue, cytopenias, n/v, diarrhea, rash, TTP, pulmonary fibrosis, infections and the small potential for as a consequence of severe toxicity/complications of therapy), benefits and alternatives, as well as the personnel involved in the administration of gemcitabine. I answered her questions in detail and she verbalized understanding and agreed with the recommended therapy. Please see the electronic consent document for details of doses and schedule. Plan: -Discontinue olaparib. -PET scan. -CXR today. -Will see if can get therapeutic thoracentesis JESSICA. -MRI brain per neurosurgery. -Scheduled for biweekly thoracentesis. (I27.82) Other chronic pulmonary embolism without acute cor pulmonale (HCC) Assessment: -Tolerating apixaban well. Plan: -Continue apixaban. Portions of this documentation were copied and pasted from my previous office visit note dated 05/04/2024 in order to provide a cohesive continuity of the history. The note has been reviewed and edited and updated as necessary. I spent a total of 45 minutes on the date of the service which included preparing to see the patient, [id number] patient care, completing clinical documentation, performing a medically appropriate examination, counseling and educating the patient/family/caregiver, ordering medications, tests, or procedures, communicating with other HCPs (not separately reported), and communicating results to the patient/family/caregiver. 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) [C50.912, C79.51] Malignant pleural effusion [J91.0] Other chronic pulmonary embolism without acute cor pulmonale (HCC) [I27.82] Malignant neoplasm metastatic to brain (HCC) [C79.31] Order(s):NM PET/CT SKULL-THIGH SUBSEQUENT [[id number]] Order #: [id number] FUTURE XR CHEST 2V FRONTAL/LAT [[id number]] Order #: [id number] FUTURE Follow-up and Disposition History for Encounter Date Provider Department Center 07/20/2024 [id number] ALBRIGHT [employer] Prescriptions as of 07/20/2024 - dexAMETHasone (DECADRON) 2 mg tablet Start the day after your Gamma Knife procedure: Decadron 2 mg tabs Take 4 mg (2 tablets) twice a day for 4 days. Take 2 mg (1 tablet) three times a day for 2 days. Take 2 mg (1 tablet) twice a day for 2 days. Take 2 mg (1 tablet) once a day for 2 days. Then stop Decadron. Patient should start on June 17, 2024. - famotidine (PEPCID) 20 mg tablet Take 1 tablet by mouth two times a day. Stop the pepcid when you stop the decadron. - prochlorperazine (COMPAZINE) 10 mg tablet Take 1 tablet by mouth every 6 hours as needed (For chemotherapy induced nausea and vomiting). - hydrOXYzine pamoate (VISTARIL) 25 mg capsule [...] 120 mg by mouth once daily. - MULTI-VITAMIN ORAL Take 1 tablet by mouth once daily. - GLUCOSAMINE SULFATE (GLUCOSAMINE ORAL) Take 1 tablet by mouth once daily. - TURMERIC ROOT EXTRACT ORAL Take 450 mg by mouth once daily. Medication notes this encounter DEXAMETHASONE 2 MG TABLET >> Paulina Jay Ma, MA 07/20/2024 11:07 AM >> PAULINA JAY Jul 20, 2024 11:07 AM Completed FAMOTIDINE 20 MG TABLET >> Paulina Jay Ma, MA 07/20/2024 11:07 AM >> PAULINA JAY Jul 20, 2024 11:07 AM Completed Problem List As Of Date 07/20/2024 Noted Resolved Abnormal mammogram [R92.8] 04/01/2016 Malignant neoplasm of upper-outer quadrant of l*04/08/2016 Fat necrosis [M79.89] 01/06/2017 BRCA2 gene mutation positive [Z15.01, Z15.09] 04/07/2024 History of ovarian cancer [Z85.43] 04/07/2024 Pulmonary embolus (HCC) [I26.99] 04/07/2024 Carcinoma of left breast metastatic to bone (HC*05/04/2024 Malignant pleural effusion [J91.0] 05/04/2024 Malignant neoplasm metastatic to brain (HCC) [C*06/07/2024 Encounter Status:Closed by JOHN ALBRIGHT on 07/20/24 CBC W AUTO DIFF BLD Collected: 07/20/2024 11:02 AM S tatus: Rojelio Source: [facility] Order Comment: Specimen Type : BLOOD SPECIMEN Ordering Facility: [facility] Address: [address] [place] [address] TYPE CODE TESTS RESULT OUT OF RANGE REFERENCE UNITS LAB 6690-2(LOINC) WBC # Bld Auto 6.35 3.70-11.00 k/uL LAB 789-8(LOINC) RBC # Bld Auto 3.88 Low 3.90-5.20 m/ uL LAB 718-7(LOINC) Hgb Bld-mCnc 13.5 11.5-15.5 g/dL LAB 4544-3(LOINC) Hct VFr Bld Auto 39.6 36.0-46.0 % LAB 787-2(LOINC) MCV RBC Auto 102.1 High 80.0-100.0 fL LAB 785-6(LOINC) MCH RBC Qn Auto 34.8 High 26.0-34.0 p g LAB 786-4(LOINC) MCHC RBC Auto-mCnc 34.1 30.5-36.0 g/dL LAB 78088-2(LOINC) RDW RBC-Rto 18.6 High 11.5-15.0 % LAB 777-3(LOINC) Platelet # Bld Auto 277 150-400 k/uL LAB 65472-2(LOINC) PMV Bld Auto 9.7 9.0-12.7 fL LAB 770-8(LOINC) Neutrophils/leuk NFr Bld Auto 75.7 % LAB 751-8(LOINC) Neutrophils # Bld Auto 4.81 1.45-7.50 k/uL LAB 736-9(INC) Lymphocytes/leuk NFr Bld Auto 17.6 % LAB 731-0(INC) Lymphocytes # Bld Auto 1.12 1.00-4.00 k/uL LAB 5905-5(INC) Monocytes/leuk NFr Bld Auto 5.7 % LAB 742-7(INC) Monocytes # Bld Auto 0.36 <0.87 k/uL LAB 713-8(INC) Eosinophil/leuk NFr Bld Auto 0.3 % LAB 711-2([facility]) Eosinophil # Bld Auto <0.03 <0.46 k/uL LAB 706-2([facility]) Basophils/leuk NFr Bld Auto 0.5 % LAB 704-7([facility]) Basophils # Bld Auto 0.03 <0.11 k/uL LAB 71958-8([facility]) Imm Granulocytes/jose k NFr Bld Auto 0.2 % LAB 05322-2([facility]) Imm Granulocytes # Bld Auto <0.03 <0.10 k/uL LAB 60854-7([facility]) nRBC/100 WBC Bld-Rto 0.3 /100 WBC LAB 771-6([facility]) nRBC # Bld Auto 0.02 High <0.01 k/u L LAB 30515-7([facility]) Differential method Bld Auto Performed By: #### [id number] # ### [facility] CLIA [id number] [address] [place] [address] STATES OF [facility] COMP METAB 2000 PNL SERPL Collected: 11:02 AM Status: F Source: [facility] Order Comment: Specimen Type : BLOOD SPECIMEN Ordering Facility: [facility] Address: [address] [place] [address] TYPE CODE TESTS RESULT OUT OF RANGE REFERENCE UNITS LAB 2885-2([facility]) Prot SerPl-mCnc 6.0 Low 6.3-8.0 g/dL LAB 1751-7([facility]) Albumin SerPl-mCnc 3.5 Low 3.9-4.9 g/dL LAB 97580-9(LOINC) Calcium SerPl-mCnc 10.1 8.5-10.2 mg/dL LAB 1975-2(LOINC) Bilirub SerPl-mCnc 0.6 0.2-1.3 mg/dL LAB 6768-6(LOINC) ALP SerPl-cCnc 90 34-123 U/L LAB 1920-8(LOINC) AST SerPl-cCnc 28 13-35 U/L LAB 1742-6(LOINC) ALT SerPl-cCnc 16 7-38 U/L LAB 2345-7(LOINC) Glucose SerPl-mCnc 158 High 74-99 mg/dL Result Comment: The [place] Diabetes Association (ADA) provides guidance for cutoff values for fasting glucose and random glucose. The ADA defines fasting as no caloric intake for at least 8 hours. Fasting plasma glucose results between 100 to 125 mg/dL indicate increased risk for diabetes (prediabetes). Fasting plasma glucose results greater than or equal to 126 mg/dL meet the criteria for diagnosis of diabetes. In the absence of unequivocal hyperglycemia, results should be confirmed by repeat testing. In a patient with classic symptoms of hyperglycemia or hyperglycemic crisis, random plasma glucose results greater than or equal to 200 mg/dL meet the criteria for diagnosis of diabetes. Reference: Standards of Medical Care in Diabetes 2016, [place] Diabetes Association. Diabetes Care. 2016.39(Suppl 1). LAB 3094-0(LOINC) BUN SerPl-mCnc 13 7-21 mg/ dL LAB 2160-0(LOINC) Creat SerPl-mCnc 0.73 0.58-0.96 mg/dL LAB 2951-2(LOINC) Sodium SerPl-sCnc 139 136-144 mmol/L LAB 2823-3(LOINC) Potassium SerPl-sCnc 3.9 3.7-5.1 mmol/L LAB 2075-0(LOINC) Chloride SerPl-sCnc 102 98-107 mmol/L LAB 8-9(LOINC) CO2 SerPl-sCnc 27 22-30 mmo l/L LAB 23082-0(LOINC) Anion Gap SerPl-sCnc 10 8-15 mmol/L LAB 09135-8(LOINC) Creatinine + eGFR Pnl SerPlBld 89 >=60 mL/min/1 .73m??? Result Comment: Estimated Gl omerular Filtration Rate (eGFR) is calculated using the 2020 CKD-EPI creatinine equation. This equation utilizes serum creatinine, sex, and age as parameters. The creatinine assay has traceable calibration to isotope dilution-mass spectrometry. Refer to KDIGO guidelines for clinical interpretation. In patients with unstable renal function, e.g. those with acute kidney injury, the eGFR may not accurately reflect actual GFR. Performed By: #### [id number] # ### [facility] CLIA [id number] [address] [place], [place] [id number] [place] [address] STATES OF [place]ASI[facility] [employer]GR[employer] Observed: 07/20/2024 10:53 AM Status: COMPLETED Source: [facility] HNO ID: [id number] Author: JOHN ALBRIGHT, DO Service: ? Author Type: Physician Type: Progress Notes Filed: 07/20/2024 12:23 Note Text: Oncologic problem(s): 1) MBC. 2) History of ovarian cancer. 3) Germline BRCA2 mutation. HPI: The patient is a 69-year-old female with a past medical history as [...] 2016. The pathology demonstrated a 2.5 cm ER/IA positive, HER2 negative tumor in the left breast with micro metastasis in 1 of 3 sentinel lymph nodes (0.8 mm). Overall grade was 3. Lymphovascular invasion was present. Closest margin was 2 mm from anterior margin. ER was positive greater than 95%. IA positive greater than 95% with moderate to strong staining intensity. HER2 was equivocal 1-2+; nonamplified by FISH testing. She declined adjuvant chemotherapy but received adjuvant radiation. Was started on AI with anastrozole beginning 10/2016. Was found to have germline BRCA2 mutation. She had declined prophylactic mastectomy and had been undergoing screening for breast cancer. Recently presented to [facility] on 03/12/2024 with a complaint of increasing shortness of breath. Prior to that she had been on a 10-day trip to [place]. CTA of the chest same day demonstrated [...] to 2 miles a day. [facility]. Son in [place]--helps with house and yard. Daughter in [place]. about 3 years ago. No chest pain. 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 Presents for ongoing oncologic management. Interim history: Most recent right-sided thoracentesis was on 07/15/2024. 1960 mL of clear yellow fluid drained. Has been holding apixaban the day prior to thoracentesis only. Feels "wiped out" with poor feeling well being on olaparib. More short of breath last few days. No cough or chest pain. PAST MEDICAL HISTORY Diagnosis Date Breast cancer (HCC) Essential hypertension Hypoxemia Ovarian cancer (HCC) Pulmonary embolism (HCC) Osteoporosis. Had been on alendronate. PAST SURGICAL HISTORY Procedure Laterality Date BSO W/TIESHA AND OMENECTOMY FOR MALIGNANCY 07/14/2012 BX BREAST W/DEVICE 1ST LESION ULTRASOUND GUID Left 04/04/2016 U/S Bx outer mid left breast BX/EXC LYMPH NODE OPEN DEEP AXILLARY NODE Left 04/29/2016 HYSTERECTOMY HX 2009 LX PARTIAL COLECTOMY 07/14/2012 MASTECTOMY, PARTIAL Left 04/29/2016 PAST SURGICAL HISTORY OF Left ablation of vein of left leg for venous reflux dexAMETHasone (DECADRON) 2 mg tablet Start the day after your Gamma Knife procedure: Decadron 2 mg tabs Take 4 mg (2 tablets) twice a day for 4 days. Take 2 mg (1 tablet) three times a day for 2 days. Take 2 mg (1 tablet) twice a day for 2 days. Take 2 mg (1 tablet) once a day for 2 days. Then stop Decadron. Patient should start on June 17, 2024. famotidine (PEPCID) 20 mg tablet Take 1 tablet by mouth two times a day. Stop the pepcid when you stop the decadron. prochlorperazine (COMPAZINE) 10 mg tablet Take 1 tablet by mouth every 6 hours as needed (For chemotherapy induced nausea and vomiting). hydrOXYzine pamoate (VISTARIL) 25 mg capsule TAKE 1 (ONE) CAPSULE BY MOUTH DAILY AT BEDTIME NEEDED FOR SLEEP calcium carbonate/vitamin D3 (CALCIUM + D ORAL) Take 1 tablet by mouth once daily. olaparib (LYNPARZA) 150 mg tablet Take 2 tablets (300mg) by mouth two times a day. apixaban (ELIQUIS) 5 mg tab(s) Take 5 mg by mouth two times a day. CINNAMON BARK ORAL Take 1 tablet by mouth once daily. hydroCHLOROthiazide 12.5 mg tablet Take 12.5 mg by mouth every morning. ginkgo biloba (GINKOBA ORAL) Take 120 mg by mouth once daily. MULTI-VITAMIN ORAL Take 1 tablet by mouth once daily. GLUCOSAMINE SULFATE (GLUCOSAMINE ORAL) Take 1 tablet by mouth once daily. TURMERIC ROOT EXTRACT ORAL Take 450 mg by mouth once daily. ALLERGIES Allergen Reactions Demeral [Meperidine] GI Upset [...] Normal mood. PHYSICAL EXAM: Vitals: Blood pressure 151/80, pulse 113, temperature 37 ?C (98.6 ?F), temperature source Temporal, weight 80.3 kg (177 lb), SpO2 95%. Well-appearing and in no acute distress. EYES: Sclerae are anicteric bilaterally. LYMPHATIC: There is no palpable adenopathy. RESPIRATORY: Diminished breath sounds right and left base--right more so. CARDIOVASCULAR: Rhythm is regular. BREAST: Deferred. ABDOMEN: The abdomen is nondistended. Extremities: No swelling or edema. SKIN: No jaundice. LABS: Most recent lab work from 03/13/2024 from [facility] reviewed. Hemoglobin 13.5 g/dL. White count 6900. Platelet count 171,000. Chemistry significant for serum creatinine 0.52 mg/dL. Calcium 8.7 mg/dL. Magnesium 1.7 mg/dL. Albumin low at 2.6 g/dL. Total protein 5.8 g/dL. Hepatocellular enzymes, alkaline phosphatase and total bilirubin normal. LDH 217. IMAGING: PET [facility]: PET scan demonstrated skeletal metastases including right iliac wing, left acetabulum, left sacral parris in the region of the fifth thoracic vertebra. There was also increased tracer concentration in the left hemithorax at the pleural interface fulfilling quantitative criteria for viable neoplasm. MRI brain [facility]: Small focal enhancing nodule measuring 4 mm along the posterior lateral aspect of the right occipital lobe with minimal surrounding edema. Genetic testing: BRCA2 mutation. 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 Elacestrant. -PIK3CA mutation. Alpelisib plus fulvestrant or capivaertib plus fulvestrant -BRCA2 mutation. -TP53 mutation (0.2%). 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 Assessment: -Metastatic recurrence of pT2b N1 WI (SN) ER/IA positive, HER2 negative invasive ductal carcinoma of the left breast. -Right-sided malignant pleural effusion. -History of ovarian cancer. -She is in need of 1 tooth extraction. Scheduled for next week. -Not tolerating olaparib well. -Relatively quick reaccumulation pleural effusion--olaparib not working. -Discussed Elacestrant but needs quick control of disease. Does not want to receive paclitaxel or lose hair. Therefore recommended gemcitabine with the goal of controlling disease and then perhaps rotating to elacestrant pending response/tolerance to gemcitabine. -I discussed the rationale, logistics, potential risks (including but not limited to fatigue, cytopenias, n/v, diarrhea, rash, TTP, pulmonary fibrosis, infections and the small potential for as a consequence of severe toxicity/complications of therapy), benefits and alternatives, as well as the personnel involved in the administration of gemcitabine. I answered her questions in detail and she verbalized understanding and agreed with the recommended therapy. Please see the electronic consent document for details of doses and schedule. Plan: -Discontinue olaparib. -PET scan. -CXR today. -Will see if can get therapeutic thoracentesis JESSICA. -MRI brain per neurosurgery. -Scheduled for biweekly thoracentesis. (I27.82) Other chronic pulmonary embolism without acute cor pulmonale (HCC) Assessment: -Tolerating apixaban well. Plan: -Continue apixaban. Portions of this documentation were copied and pasted from my previous office visit note dated 05/04/2024 in order to provide a cohesive continuity of the history. The note has been reviewed and edited and updated as necessary. I spent a total of 45 minutes on the date of the service which included preparing to see the patient, glve-ko-rrot patient care, completing clinical documentation, performing a medically appropriate examination, counseling and educating the patient/family/caregiver, ordering medications, tests, or procedures, communicating with other HCPs (not separately reported), and communicating results to the patient/family/caregiver. DO SD Bautista Observed: 07/20/2024 12:00 AM Status: COMPLETED Source: [facility] Telephone (HEMAWS) JOYCE ROBLES ([id number]) 1955 F Date Time Provider Department 07/20/24 JOHN ALBRIGHT During your visit today, we recorded the following information about you: Paz Parker 07/20/2024 3:32 PM Signed Please enter Chest Xray order for 08/11 appointment. PSS Please schedule CXR prior to office visit. John Albright DO 07/20/2024 4:22 PM Signed Thank you. Filed. Paz Parker 07/21/2024 8:06 AM Signed CXR scheduled Allergies As of Date: 07/20/2024 Noted Allergy Reaction DEMERAL (MEPERIDINE) 04/01/2016 8 - GI Upset PERCOCET (OXYCODONE-ACETAMINOPHEN)04/01/2016 8 - GI Upset Date Reviewed: 07/20/2024 Reviewed by: Paulina Jay Ma, MA - Fully Assessed Reason for Visit: Orders [681] Primary Visit Diagnosis:Malignant pleural effusion [J91.0] Order(s):XR CHEST 2V FRONTAL/LAT [[id number]] Order #: [id number] FUTURE Prescriptions as of 07/21/2024 - dexAMETHasone (DECADRON) 2 mg tablet Start the day after your Gamma Knife procedure: Decadron 2 mg tabs Take 4 mg (2 tablets) twice a day for 4 days. Take 2 mg (1 tablet) three times a day for 2 days. Take 2 mg (1 tablet) twice a day for 2 days. Take 2 mg (1 tablet) once a day for 2 days. Then stop Decadron. Patient should start on June 17, 2024. - famotidine (PEPCID) 20 mg tablet Take 1 tablet by mouth two times a day. Stop the pepcid when you stop the decadron. - prochlorperazine (COMPAZINE) 10 mg tablet Take 1 tablet by mouth every 6 hours as needed (For chemotherapy induced nausea and vomiting). - hydrOXYzine pamoate (VISTARIL) 25 mg capsule [...] 120 mg by mouth once daily. - MULTI-VITAMIN ORAL Take 1 tablet by mouth once daily. - GLUCOSAMINE SULFATE (GLUCOSAMINE ORAL) Take 1 tablet by mouth once daily. - TURMERIC ROOT EXTRACT ORAL Take 450 mg by mouth once daily. Problem List As Of Date 07/20/2024 Noted Resolved Abnormal mammogram [R92.8] 04/01/2016 Malignant neoplasm of upper-outer quadrant of l*04/08/2016 Fat necrosis [M79.89] 01/06/2017 BRCA2 gene mutation positive [Z15.01, Z15.09] 04/07/2024 History of ovarian cancer [Z85.43] 04/07/2024 Pulmonary embolus (HCC) [I26.99] 04/07/2024 Carcinoma of left breast metastatic to bone (HC*05/04/2024 Malignant pleural effusion [J91.0] 05/04/2024 Malignant neoplasm metastatic to brain (HCC) [C*06/07/2024 Encounter Status:Closed by PAZ PARKER on 07/21/24 SD Observed: 07/20/2024 12:00 AM Status: COMPLETED Source: [facility] Telephone (HEMAWS) JOYCE ROBLES ([id number]) 1955 F Date Time Provider Department 07/20/24 JIMMIE CREWS During your visit today, we recorded the following information about you: Jimmie Crews RN 07/20/2024 11:39 AM Signed Met with patient and introduced myself. Patient was given a My Journey binder with chemocare information, office contact information, thermometer, and additional chemotherapy resource booklets. Patient aware this nurse will review on scheduled appointment date. 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 Take 2 mg (1 tablet) three times a day for 2 days. Take 2 mg (1 tablet) twice a day for 2 days. Take 2 mg (1 tablet) once a day for 2 days. Then stop Decadron. Patient should start on June 17, 2024. - famotidine (PEPCID) 20 mg tablet Take 1 tablet by mouth two times a day. Stop the pepcid when you stop the decadron. - prochlorperazine (COMPAZINE) 10 mg tablet Take 1 tablet by mouth every 6 hours as needed (For chemotherapy induced nausea and vomiting). - hydrOXYzine pamoate (VISTARIL) 25 mg capsule [...] 120 mg by mouth once daily. - MULTI-VITAMIN ORAL Take 1 tablet by mouth once daily. - GLUCOSAMINE SULFATE (GLUCOSAMINE ORAL) Take 1 tablet by mouth once daily. - TURMERIC ROOT EXTRACT ORAL Take 450 mg by mouth once daily. 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 Author Type: ? Type: Progress Notes Filed: 11/03/2024 08:02 Note Text: [facility] Discontinuation Assessment: Disease group: Oral Oncology/Hematology Medication: LYNPARZA 150 MG TABLET Discontinue reason: Side effect intolerance Sharita Sawyer, PharmD Clinical Pharmacist, Oncology [facility] P: , F: Pool: P [facility] [place] #: [id number] PROGRESS Observed: 07/02/2024 1:01 PM Status: COMPLETED Source: [facility] HNO ID: [id number] Author: ELSA JACQUES RPh Service: ? Author Type: ? Type: Progress Notes Filed: 07/20/2024 12:20 Note Text: [facility] Refill Assessment Medication(s): Lynparza Reviewed Automotive Services Manager OV 06/14 and Masci's unsigned note on 07/20. Labs 07/20 reviewed. Most recent right-sided thoracentesis was on 07/15/2024. 1960 mL of clear yellow fluid drained. Feels "wiped out" with poor feeling well being on olaparib. PDC 76% , reports missing doses Continue current dose of lynparza. Next clinic visit scheduled 08/11. ALLERGIES Allergen Reactions Demeral [Meperidine] GI Upset Percocet [Oxycodone* GI Upset Patient's current medication list and adherence status to current therapy were reviewed by Specialty Pharmacy clinical pharmacist to identify any new drug interactions or non-compliance to therapy. Therapy continues to be appropriate for disease, patient response, and medical condition. Verification of therapeutic benefit and effectiveness with current therapy was completed. Adverse events, barriers in adherence, and side effects were assessed and addressed if applicable. Will proceed with refill with no changes in therapy - patient progressing towards achieving therapeutic goals based on medication-specific laboratory parameters, disease state markers and outcomes. Office/provider notes have been reviewed prior to dispensing the medication. Elsa Jacques RPh Clinical Pharmacist Oncology [facility] P F Pool: P [facility] Pool #: [id number] Skin Diver Assessment Patient confirmed: Yes Med/dose confirmed: Yes Supplies needed: No supplies needed Missed doses: Yes Count of missed doses: 2 Reason for missed doses: Forgetfulness Estimated days supply on hand: 12 Copay amount: 0 Copay form of payment: Credit card on file Payment confirmed: Yes Delivery method: FedEx Signature required: Waived on patient request Delivery address: [address] [place] [address] Delivery date: 07/21/24 Questions or concerns for the pharmacist?: No Did you have any side effects believed to be related to this medication, that resulted in hospitalization?: No Current Outpatient Medications on File Prior to Visit Medication Sig dexAMETHasone (DECADRON) 2 mg tablet Start the day after your Gamma Knife procedure: Decadron 2 mg tabs Take 4 mg (2 tablets) twice a day for 4 days. Take 2 mg (1 tablet) three times a day for 2 days. Take 2 mg (1 tablet) twice a day for 2 days. Take 2 mg (1 tablet) once a day for 2 days. Then stop Decadron. Patient should start on June 17, 2024. famotidine (PEPCID) 20 mg tablet Take 1 tablet by mouth two times a day. Stop the pepcid when you stop the decadron. prochlorperazine (COMPAZINE) 10 mg tablet Take 1 tablet by mouth every 6 hours as needed (For chemotherapy induced nausea and vomiting). hydrOXYzine pamoate (VISTARIL) 25 mg capsule TAKE 1 (ONE) CAPSULE BY MOUTH DAILY AT BEDTIME NEEDED FOR SLEEP calcium carbonate/vitamin D3 (CALCIUM + D ORAL) Take 1 tablet by mouth once daily. olaparib (LYNPARZA) 150 mg tablet Take 2 tablets (300mg) by mouth two times a day. apixaban (ELIQUIS) 5 mg tab(s) Take 5 mg by mouth two times a day. CINNAMON BARK ORAL Take 1 tablet by mouth once daily. hydroCHLOROthiazide 12.5 mg tablet Take 12.5 mg by mouth every morning. ginkgo biloba (GINKOBA ORAL) Take 120 mg by mouth once daily. MULTI-VITAMIN ORAL Take 1 tablet by mouth once daily. GLUCOSAMINE SULFATE (GLUCOSAMINE ORAL) Take 1 tablet by mouth once daily. TURMERIC ROOT EXTRACT ORAL Take 450 mg by mouth once daily. No current facility-administered medications on file prior to visit. [facility] CLINICAL ASSESSMENT - HEMATOLOGY ONCOLOGY V6: Ivent complete: No Assessment to use: Refill Lab monitoring inclusive of CBC, Chem-7, and other labs as pertinent for therapy: Yes Chemo cycle timing assessment: N/A Assessment of injection issues: N/A Current medication list (including drug interaction assessment): Yes Experience of adverse reactions to the medication: Yes Current PDC %: 76 Date of influenza vaccination reminder: 05/07/2024 Date of most recent vaccination assessment: 05/07/2024 Treatment Plan Information: Diagnosis:metastatic breast , ER/IA positive, HER2 negative, Bone metastases -History of [...] mg-to-mg basis - Avoid grapefruit, grapefruit juice, [place] oranges, or [place] orange juice. Supportive Care: Mild emetogenic potential per Lex[facility] Side Effects/Warnings: include but are not limited to bone marrow suppression, hypersensitivity, pulmonary toxicity (pneumonitis), secondary malignancies (MDS/AML), skin rash, hypomagnesemia, abdominal pain, constipation, diarrhea, nausea, stomatitis, arthralgia Monitoring: - CBC - Renal function Drug-Drug Interactions: None identifiedper Lexluz maria on 05/07/24 Baseline: 03/13/2024(scanned docs from [facility]) - CBC: Hgb 13.5 Plt 171 , ANC 5.7 - estim EGFR 125 125 SCr 0.52 - HBV Panel: none-will recommend ECHO 04/16/24 :QTC Calculation (Bazett): 432 (P) Overdue for some routine immunizations, Patient has access to reminders. Discontinue Letrozole when starting Lynparza. Est. Tx Plan Start Date: No information available Estimated Start Date Info: Per Dr. Albright's discretion In line with ASCO and NCCN recommendations, please consider ordering a Hepatitis Remote Panel for hepatitis B screening in patients anticipating systemic anticancer therapy. Est. Estimated Treatment Duration: Continue until disease progression or unacceptable toxicity. Janice Sapp OPERATIVE NO Observed: 06/16/2024 2:56 PM Status: COMPLETED Source: [facility] HNO ID: [id number] Author: SWAPNIL GONZALES MD Service: Neurosurgery Author Type: Physician Type: Operative Report Filed: 06/16/2024 14:58 Note Text: [facility] [address] [place] [address] [place] OPERATIVE REPORT NAME: Joyce Robles [facility] NO.: [id number] MASK SIMULATION DATE: 2024-06-16 RADIATION TREATMENT START DATE: 2024-06-16 RADIATION TREATMENT END DATE: 2024-06-16 NUMBER OF FRACTIONS: 1 PREOPERATIVE DIAGNOSIS: Right Metastasis, breast POSTOPERATIVE DIAGNOSIS: Same OPERATION: 1 fraction mask gamma knife radiosurgery. ANESTHESIA: None SURGEON: Swapnil Gonzales M.D. - Stereotactic treatment planning. RADIATION ONCOLOGIST: Jessie Clayton M.D. ASSISTANTS: Candelaria Elias MD - Assistance with planning SPECIMEN: None EBL: 0 ccs OPERATIVE INDICATIONS: The full clinical history and indications for treatment were discussed in the initial neurosurgery visit note. The indications, risks, benefits, and alternatives were discussed with the patient who asked us to proceed. The patient is aware that this may be one of several staged procedures in the management of this disorder. OPERATIVE FINDINGS: Two untreated tumors DESCRIPTION OF PROCEDURE: The patient was admitted to the Gamma Knife Center. The Leksell mask was created and a stereotactic cone-beam CT was obtained. The patient then underwent high-resolution MRI and CT imaging. The scans, including the cone-beam registration CT, were loaded in the planning computer and Leksell gamma plan was used to perform fractionated radiosurgery dose planning. The lesions were treated as follows: Target 1 (r occ) Location: r occ Prescription: 24 Gy to the 84% local isodose line. The plan uses 2 shots covering 100% of the target. GTV Volume: 0.41 cm3 CTV Volume: 0.41 cm3 Max linear size: 0.96 cm Conformality Index (PIV/CTV) = 1.902 Complexity: Simple Gradient Index: 5.2 Number of Fractions: 1 Target 2 (lt fr) Location: lt fr Prescription: 24 Gy to the 90% local isodose line. The plan uses 2 shots covering 100% of the target. GTV Volume: 0.025 cm3 CTV Volume: 0.025 cm3 Max linear size: 0.44 cm Conformality Index (PIV/CTV) = 2.6 Complexity: Simple Gradient Index: 8.9 Number of Fractions: 1 After the usual quality control technician procedures were performed, fractionated radiosurgery was delivered with use of the Gamma Knife. The Gamma Knife checklists and time outs were performed during this procedure in a standard manner. Swapnil Gonzales M.D. Electronically signed June 16, 2024 2:58 PM PROGRESS Observed: 06/16/2024 10:00 AM Status: COMPLETED Source: [facility] HNO ID: [id number] Author: MARIIA BRADLEY RT(R) Service: Radiology Author Type: Technologist Type: Progress Notes Filed: 06/16/2024 09:24 Note Text: Radiology Service Progress Note PATIENT NAME: Joyce Robles DATE OF SERVICE: June 16, 2024 TIME: 9:24 AM PATIENT IDENTITY VERIFICATION COMPLETED USING TWO (2) IDENTIFIERS: Name and Date of confirmed by patient verbally and Name and Date of confirmed by identification band. FALL SCREENING: Has the patient had 2 falls in the last year or 1 fall with injury or currently using an Ambulatory Assistive Device (Walker, Cane, Wheelchair, Crutches, etc.)? No PATIENT GENDER DATA: Female. status: : No status: NO. PATIENT RELEVANT IMPLANT DATA REVIEWED: Yes PATIENT PRESENTS WITH AN IMPLANTABLE OR ATTACHED RETAIL BUYER: No RADIOLOGY DEPARTMENT: CT; Exam(s) Completed: Brain PERIPHERAL IV DATA: Not applicable SIGNED BY: JESSICA Connor) June 16, 2024 9:24 AM CNOV Observed: 06/16/2024 9:30 AM Status: COMPLETED Source: [facility] Office Visit (BEATRIS) TIFFANIEJOYCE ([id number]) 1955 F Date Time Provider Department 06/16/24 9:30 AM PLACEMENT NARAYAN SPEAR During your visit today, we recorded the following information about you: StoAngela wall RN 06/16/2024 1:50 PM Signed June 16, 2024 0804 Joyce arrived ambulatory from imaging with: son. Transportation home verified: yes, with son. Cook here for today for imaging, mask fitting, pre-planning for Icon mask based Gamma Knife Stereotactic Radiosurgery by radiation therapist, and single session mask based treatment. Pt arrived to [facility] with IV access #22 in left AC. IV d/c'd. Angela Panchal RN ID verified with patient with two identifiers, name and birthdate. ID band applied. Angela Panchal RN Joyce assessed for the following: Does Joyce have any pain? No. Pain 0 on scale of 0-10 Does Joyce have: Unintentional weight loss or gain of greater than 10 pounds due to a change of appetite and/or intake: no Difficulty chewing and/or swallowing:no Fall risk assessment: Not at risk for falls Concerns about physical or emotional abuse: no Allergies reviewed with patient, yes. 1004 Mask completed. Joyce Robles returned to department for treatment # 1 of 1. Is patient on immunotherapy? No. Patient's Age: 69 Menstruation Status: Post Menopausal 1238 Decadron 10 mg po given prior to Gamma Knife SRS per order of Dr. Naveen MD. 1239 Patient assisted to treatment room. Gamma Knife SRS begun. 1317 Gamma Knife Stereotactic Radiosurgery Completed. 1330 Discharge instructions given to patient. Instructions reviewed by this nurse and patient verbalized an understanding. Pt then discharged with son. VÍCTOR Jones Colleen, RN 06/16/2024 12:47 PM Addendum [facility] Discharge Instructions As with any surgery there are risks and potential side effects. There is a slight chance of developing brain swelling days or months after the Gamma Knife radiosurgery. If you experience nausea, vomiting, severe headache, visual changes, difficulty speaking, a seizure or any other symptom unusual for you, contact your physician immediately or go to the nearest emergency room. These may or may not be symptoms of brain swelling. If you go to a physician or hospital other than the [facility] with any problem related to the Gamma Knife procedure, please notify the Gamma Knife nurse. After your treatment, you may experience a mild headache. You may take non-aspirin pain medication, such as Tylenol, if you are having any discomfort. Some patients are placed on steroids, such as Decadron, and an antacid, such as Pepcid, following their radiosurgery. Certain conditions require these medications to lessen the chance of swelling around the treated area. When prescribed, these medications are extremely important in the period immediately following your Gamma Knife treatment and must be taken exactly as directed. The Gamma Knife nurse will discuss your particular situation with you. Do not take any Decadron for the remainder of today. Begin following the regimen below on 06/17/24: Start the day after your Gamma Knife procedure: Decadron 2 mg tablets: Take 4 mg (2 tablets) twice a day for 4 days, then Take 2 mg (1 tablet) three times a day for 2 days, then Take 2 mg (1 tablet) twice a day for 2 days, then Take 2 mg (1 tablet) once a day for 2 days, then stop Decadron. Pepcid 20 mg tablets: Take the Pepcid twice a day while taking the Decadron. Stop Pepcid when you stop the Decadron. Resume all other regular medications. -Taking good care of your general health is an important step to recovery. Continue to eat well and get plenty of rest. At the time of discharge, you will be given your follow-up appointments with your neurosurgeon and radiation oncologist. If not, these appointment dates and times will be in your MyChart or mailed to you. If you have any questions or problems, you may your physician, Dr. Timothy Gonzales at [phone] In the evening or on weekends, call [phone]; [phone] or toll-free [phone] and ask the screw machine operator to page your neurosurgeon's resident international logistics coordinator; Or call the Gamma Knife nurse Friday through Friday 8:00 am to 4:00 pm at [phone]. Referring Provider: SWAPNIL GONZALES [[id number]] Allergies As of Date: 06/16/2024 Noted Allergy Reaction DEMERAL (MEPERIDINE) 04/01/2016 8 - GI Upset PERCOCET (OXYCODONE-ACETAMINOPHEN)04/01/2016 8 - GI Upset Date Reviewed: 06/16/2024 Reviewed by: Deepthi Moreno RN - Fully Assessed Reason for Visit: Procedure [88] Cmt: GKRS Primary Visit Diagnosis:Metastasis to brain (HCC) [C79.31] Order(s):[] dexAMETHasone (DECADRON) tab(s) 10 mgDisp: Rfl: Prescriptions as of 06/16/2024 - dexAMETHasone (DECADRON) 2 mg tablet Start the day after your Gamma Knife procedure: Decadron 2 mg tabs Take 4 mg (2 tablets) twice a day for 4 days. Take 2 mg (1 tablet) three times a day for 2 days. Take 2 mg (1 tablet) twice a day for 2 days. Take 2 mg (1 tablet) once a day for 2 days. Then stop Decadron. Patient should start on June 17, 2024. - famotidine (PEPCID) 20 mg tablet Take 1 tablet by mouth two times a day. Stop the pepcid when you stop the decadron. - prochlorperazine (COMPAZINE) 10 mg tablet Take 1 tablet by mouth every 6 hours as needed (For chemotherapy induced nausea and vomiting). - hydrOXYzine pamoate (VISTARIL) 25 mg capsule [...] 120 mg by mouth once daily. - MULTI-VITAMIN ORAL Take 1 tablet by mouth once daily. - GLUCOSAMINE SULFATE (GLUCOSAMINE ORAL) Take 1 tablet by mouth once daily. - TURMERIC ROOT EXTRACT ORAL Take 450 mg by mouth once daily. 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 There is a slight chance of developing brain swelling days or months after the Gamma Knife radiosurgery. If you experience nausea, vomiting, severe headache, visual changes, difficulty speaking, a seizure or any other symptom unusual for you, contact your physician immediately or go to the nearest emergency room. These may or may not be symptoms of brain swelling. If you go to a physician or hospital other than the [facility] with any problem related to the Gamma Knife procedure, please notify the Gamma Knife nurse. After your treatment, you may experience a mild headache. You may take non-aspirin pain medication, such as Tylenol, if you are having any discomfort. Some patients are placed on steroids, such as Decadron, and an antacid, such as Pepcid, following their radiosurgery. Certain conditions require these medications to lessen the chance of swelling around the treated area. When prescribed, these medications are extremely important in the period immediately following your Gamma Knife treatment and must be taken exactly as directed. The Gamma Knife nurse will discuss your particular situation with you. Do not take any Decadron for the remainder of today. Begin following the regimen below on 06/17/24: Start the day after your Gamma Knife procedure: Decadron 2 mg tablets: Take 4 mg (2 tablets) twice a day for 4 days, then Take 2 mg (1 tablet) three times a day for 2 days, then Take 2 mg (1 tablet) twice a day for 2 days, then Take 2 mg (1 tablet) once a day for 2 days, then stop Decadron. Pepcid 20 mg tablets: Take the Pepcid twice a day while taking the Decadron. Stop Pepcid when you stop the Decadron. Resume all other regular medications. -Taking good care of your general health is an important step to recovery. Continue to eat well and get plenty of rest. At the time of discharge, you will be given your follow-up appointments with your neurosurgeon and radiation oncologist. If not, these appointment dates and times will be in your MyChart or mailed to you. If you have any questions or problems, you may your physician, Dr. Timothy Gonzales at [phone] In the evening or on weekends, call [phone]; [phone] or toll-free [phone] and ask the screw machine operator to page your neurosurgeon's resident international logistics coordinator; Or call the Gamma Knife nurse Friday through Friday 8:00 am to 4:00 pm at [phone]. Prescriptions ordered this encounter Disp Refills Start End MIXTURE TEMPLATE FOR IMS 06/16/2024 06/16/2024 Route: ORAL Encounter Status:Closed by ANGELA PANCHAL on 06/16/24 CT BRAIN WO IVCON Observed: 06/16/2024 9:27 AM Status: F Source: [facility] * * *Final Report* * * DATE OF EXAM: Jun 16 2024 9:27AM [facility] 0504 - CT BRAIN WO IVCON / PROCEDURE REASON: Metastasis to brain (HCC) * * * * Physician Interpretation * * * * EXAMINATION: CT BRAIN WO IVCON CLINICAL HISTORY: Localization exam TECHNIQUE: Serial axial images without IV contrast were obtained from the vertex to the foramen magnum. MQ: CTBWO_3 CT Radiation dose: Integrated Dose-Length Product (DLP) for this visit = 1132 mGy*cm CT Dose Reduction Employed: No dose reduction techniques were required COMPARISON: 06/16/2024 MRI brain. PET/CT 04/27/2024. MR brain 04/28/2024. RESULT: Acute change: No evidence of an acute infarct or other acute parenchymal process. Hemorrhage: No evidence of acute intracranial hemorrhage. ECASS hemorrhagic transformation score: Not Applicable Mass Lesion / Mass Effect: Intracranial metastases are better demonstrated on same-day MR. 10 mm hyperdense ovoid lesion in the RIGHT (series 2 image 57) corresponding to known enhancing lesion mildly increased in size from 04/28/2024. Chronic change: None apparent. Parenchyma: There is no significant volume loss. Ventricles: The ventricles are within normal limits of size and configuration for age. Paranasal sinuses and skull base: Moderate mucosal thickening of the dependent RIGHT maxillary sinus with bony dehiscence of the maxillary sinus floor communicating with lucency at the site of an extracted RIGHT molar questionable for sequela of chronic odontogenic maxillary sinusitis. Middle ear cavities and mastoid air cells are clear. The skull base and imaged soft tissues are unremarkable. IMPRESSION: Localization exam. Known intracranial metastases are better demonstrated on same-day MR. Suggesting of sequela of chronic odontogenic RIGHT maxillary sinusitis as described. Drafter: KEVIN Transcribe Date/Time: Jun 16 2024 9:49A Dictated by : JAMIL HUMPHREYS MD This examination was interpreted and the report reviewed and electronically signed by: JAMIL HUMPHREYS MD on Jun 16 2024 9:53AM EST [id number] MRI BRAIN LOCAL W IVCON Observed: 2023 9:21 AM Status: F Source: [facility] * * *Final Report* * * DATE OF EXAM: Jun 16 2024 9:21AM [facility] 0289 - MRI BRAIN LOCAL W IVCON / PROCEDURE REASON: Metastasis to brain (HCC) * * * * Physician Interpretation * * * * EXAMINATION: MRI BRAIN LOCAL W IVCON CLINICAL HISTORY: Brain metastases, gamma knife planning TECHNIQUE: MR brain localization protocol with contrast. Contrast: 8 mL Elucirem IV COMPARISON: MR brain 04/28/2024. RESULT: Multiple intracranial metastases as indexed below from series 3: * Image 110, New 4 mm LEFT frontal lobe cortical lesion. * Image 61, mildly increased size of enhancing lesion in the RIGHT occipital lobe measuring 10 x 10 mm, previously 9 x 8 mm * Image 59, Questionable new enhancing focus in the LEFT inferior temporal lobe Examination is mildly limited by linear hyperintense pulsation artifact-related signal projecting over the supratentorial parenchyma most conspicuous in the bilateral temporal lobes. No significant mass effect. No acute hydrocephalus or midline shift. IMPRESSION: Localization exam. Increased and new intracranial metastatic lesions as indexed in the body the report. Examination is mildly limited by linear hyperintense pulsation artifact-related signal projecting over the supratentorial parenchyma most conspicuous in the bilateral temporal lobes. Drafter: [facility] Transcribe Date/Time: Jun 16 2024 9:33A Dictated by : JAMIL HUMPHREYS MD This examination was interpreted and the report reviewed and electronically signed by: JAMIL HUMPHREYS MD on Jun 16 2024 9:48AM EST [id number] PROGRESS Observed: 06/16/2024 9:00 AM Status: COMPLETED Source: [facility] HNO ID: [id number] Author: DEEPTHI MORENO RN Service: Radiology Author Type: Registered Nurse Type: Progress Notes Filed: 06/16/2024 08:57 Note Text: Radiology Service Progress Note DATE OF SERVICE: June 16, 2024 TIME: 8:55 AM PATIENT WEIGHT: 178LBS PATIENT IDENTITY VERIFICATION COMPLETED USING TWO (2) STANDARD IDENTIFIERS: Name and Date of confirmed by patient verbally and Name and Date of confirmed by identification band. FALL SCREENING: Has the patient had 2 falls in the last year or 1 fall with injury or currently using an Ambulatory Assistive Device (Walker, Cane, Wheelchair, Crutches, etc.)? No PATIENT GENDER DATA: Female. status: : No status: NO. ALLERGIES: Reviewed and unchanged CONTRAST ALLERGY: No EXAM: MRI - CONTRAST TYPE: GROUP II IV SITE: Ambulatory: A peripheral IV was started in the Left antecubital site with a Angio cath: 22 gauge. IV SITE APPEARANCE: Clean,Dry and Intact SIGNATURE: Deepthi Moreno RN PATIENT NAME: Joyce Robles DATE: June 16, 2024 TIME: 8:55 AM PROGRESS Observed: 06/16/2024 9:00 AM Status: COMPLETED Source: [facility] HNO ID: [id number] Author: ALYCIA LANDA RT(R) Service: Radiology Author Type: Technologist Type: Progress Notes Filed: 06/16/2024 09:24 Note Text: Radiology Service Progress Note PATIENT NAME: Joyce Robles DATE OF SERVICE: June 16, 2024 TIME: 9:01 AM PATIENT IDENTITY VERIFICATION COMPLETED USING TWO (2) IDENTIFIERS: Name and Date of confirmed by patient verbally. FALL SCREENING: Has the patient had 2 falls in the last year or 1 fall with injury or currently using an Ambulatory Assistive Device (Walker, Cane, Wheelchair, Crutches, etc.)? No PATIENT GENDER DATA: Female. status: : No status: NO. PATIENT RELEVANT IMPLANT DATA REVIEWED: Yes PATIENT PRESENTS WITH AN IMPLANTABLE OR ATTACHED RETAIL BUYER: No RADIOLOGY DEPARTMENT: MR; Exam(s) Completed: Head: Localization PERIPHERAL IV DATA: Site assessment: Clean,Dry and Intact, Site disposition Left in for next appointment SIGNED BY: Alycia Landa RT(R) June 16, 2024 9:01 AM PROGRESS Observed: 06/16/2024 6:43 AM Status: COMPLETED Source: [facility] HNO ID: [id number] Author: ANGELA PANCHAL RN Service: ? Author Type: Registered Nurse Type: Progress Notes Filed: 06/16/2024 13:50 Note Text: June 16, 2024 0804 Joyce arrived ambulatory from imaging with: son. Transportation home verified: yes, with son. Joyce here for today for imaging, mask fitting, pre-planning for Icon mask based Gamma Knife Stereotactic Radiosurgery by radiation therapist, and single session mask based treatment. Pt arrived to GK with IV access #22 in left AC. IV d/c'd. Angela Panchal RN ID verified with patient with two identifiers, name and birthdate. ID band applied. Angela Panchal RN Joyce assessed for the following: Does Joyce have any pain? No. Pain 0 on scale of 0-10 Does Joyce have: Unintentional weight loss or gain of greater than 10 pounds due to a change of appetite and/or intake: no Difficulty chewing and/or swallowing:no Fall risk assessment: Not at risk for falls Concerns about physical or emotional abuse: no Allergies reviewed with patient, yes. 1004 Mask completed. Joyce Robles returned to department for treatment # 1 of 1. Is patient on immunotherapy? No. Patient's Age: 69 Menstruation Status: Post Menopausal 1238 Decadron 10 mg po given prior to Gamma Knife SRS per order of Dr. Naveen MD. 1239 Patient assisted to treatment room. Gamma Knife SRS begun. 1317 Gamma Knife Stereotactic Radiosurgery Completed. 1330 Discharge instructions given to patient. Instructions reviewed by this nurse and patient verbalized an understanding. Pt then discharged with son. Angela Panchal RN PROGRESS Observed: 06/16/2024 12:00 AM Status: COMPLETED Source: [facility] HNO ID: [id number] Author: JESSIE CLAYTON MD Service: Radiation Oncology Author Type: Physician Type: Progress Notes Filed: 06/17/2024 10:31 Note Text: JOYCE ROBLES [id number] 06/16/2024 [facility] Department of Radiation Oncology [facility] RADIATION ONCOLOGY GAMMA KNIFE TREATMENT PLANNING NOTE For reasons stated in the consult note, JOYCE ROBLES is a candidate for palliative radiosurgery. Based on review and interpretation of the relevant diagnostic studies together with the exam findings, JOYCE ROBLES was imaged on 06/16/2024. The CT and MRI imaging was fused and checked in Gamma Plan by the radiation oncologist/neurosurgeon and physicist and the target volume to be treated as well as the critical normal structure(s) were delineated. After participating in the treatment planning process with neurosurgery and medical physics, I approved the best plan to deliver my prescribed course of radiosurgery. The target tissue was planned using Gamma Plan to allow for the best isodose distribution and dosimetry/DVH. The dose to normal tissue and target tissue was confirmed upon review of the calculated dose. A completed summary of this plan dated 06/16/2024 incorporated herein by reference includes dose, isodose distribution and DVH. Electronically Signed Devyn Clayton M.D. / GEENA 0:31 AM PROGRESS Observed: 06/16/2024 12:00 AM Status: COMPLETED Source: [facility] HNO ID: [id number] Author: JESSIE CLAYTON MD Service: Radiation Oncology Author Type: Physician Type: Progress Notes Filed: 06/17/2024 11:03 Note Text: JOYCE ROBLES Sera [id number] 06/16/2024 [facility] Department of Radiation Oncology [facility] RADIATION ONCOLOGY: COMPLETION NOTE DATE OF TREATMENT: June 16, 2024 UNIT: Gamma Knife AREA TREATED: 1) r occ 2) lt fr DISEASE: 69 year old female with germline BRCA2 mutation and: 1.Metastatic breast adenocarcinoma with brain metastases 2.History of stage IIIB ovarian cancer (surgery 10/2008, followed by 6 cycles carboplatin and paclitaxel completed 04/2009) with recurrence (debulking 10/2012, adjuvant doxorubicin and carboplatin completed 05/2013) DELIVERED DOSE: 1. 2400.0 cGy was prescribed to the 84% isodose line, which covered 100% of the target. The plan utilized 2 shots using 16 mm and 8 mm sectors. GTV volume = 0.41 cm3. Maximum dose = 2860.0 cGy. Maximum diameter = 0.96 cm. MD/PD = 1.192. PIV/CTV = 1.902. Gradient Index = 5.2. Number of Fractions = 1. 2. 2400.0 cGy was prescribed to the 90% isodose line, which covered 100% of the target. The plan utilized 2 shots using 8 mm and 4 mm sectors. GTV volume = 0.025 cm3. Maximum dose = 2670.0 cGy. Maximum diameter = 0.44 cm. MD/PD = 1.113. PIV/CTV = 2.6. Gradient Index = 8.9. Number of Fractions = 1. 2 separate treatment plans were devised. ELAPSED TREATMENT TIME: 38 minutes (one session). TIME IN 12:39 TIME OUT 13:17 TOLERANCE: Excellent. RESPONSE: To be evaluated. REMARKS: The patient will follow-up in 2 months with repeat MRI scan. Authorized user was present during the entire treatment. The total treatment time was within 10% of the written directive. Staff Physician Devyn Clayton M.D./ 1:03 AM Electronically Signed cc: Teetee Michaud ([facility]) [address] [place] [address] John Albright [address] [facility] [address] Patient Care Team: Teetee Michaud MD as PCP - General (Family Medicine) PROGRESS Observed: 06/16/2024 12:00 AM Status: COMPLETED Source: [facility] HNO ID: [id number] Author: JESSIE CLAYTON MD Service: Radiation Oncology Author Type: Physician Type: Progress Notes Filed: 06/17/2024 10:29 Note Text: JOYCE ROBLES [id number] 06/16/2024 [facility] GAMMA KNIFE STEREOTACTIC RADIOSURGERY (SRS) DAILY PROCEDURE NOTE FRACTION NUMBER: 1 of 1 CUMULATIVE DOSE: 24 Gy rt occ (Out of a planned 24 Gy) 24 Gy lt frontal (Out of a planned 24 Gy) DIAGNOSIS: 69 year old female with germline BRCA2 mutation and: 1.Metastatic breast adenocarcinoma with one 4mm intracranial metastasis 2.History of stage IIIB ovarian cancer (surgery 10/2008, followed by 6 cycles carboplatin and paclitaxel completed 04/2009) with recurrence (debulking 10/2012, adjuvant doxorubicin and carboplatin completed 05/2013) PROCEDURE: Under my direct supervision the patient was set up on the treatment table and all treatment parameters were verified, including patient identity and treatment site. CBCT obtained which was co-registered using the treatment planning system. Adaptive replan was verified and approved. Once the beam was turned on, the patient position and target location were continuously monitored during delivery of the SRS using infrared tracking. At all points of decision-making with regard to patient setup, I conferred with the medical authorization specialist to approve the final setup. I was available throughout the SRS treatment to manage the execution of the treatment and make real-time adjustments in response to patient motion, target movement, or equipment issues to ensure accuracy and safety. The patient was evaluated by me after treatment and was discharged in stable condition. TREATMENT VOLUMES: GTV (Defined by neurosurgeon) PHYSICIST NAME: Alonso John, PhD INTERVENTIONS: None ASSESSMENT/PLAN: Patient tolerated procedure well. We will continue as planned. Electronically Signed DEVYN CLAYTON M.D. 0:29 AM PROGRESS Observed: 06/16/2024 12:00 AM Status: COMPLETED Source: [facility] HNO ID: [id number] Author: JESSIE CLAYTON MD Service: Radiation Oncology Author Type: Physician Type: Progress Notes Filed: 06/17/2024 10:29 Note Text: JOYCE ROBLES [id number] 06/16/2024 [facility] Department of Radiation Oncology [facility] RADIATION ONCOLOGY GAMMA KNIFE SIMULATION NOTE DATE OF SIMULATION: 06/16/2024 MACHINE: Gamma Knife DIAGNOSIS: 69 year old female with germline BRCA2 mutation and: 1.Metastatic breast adenocarcinoma with one 4mm intracranial metastasis 2.History of stage IIIB ovarian cancer (surgery 10/2008, followed by 6 cycles carboplatin and paclitaxel completed 04/2009) with recurrence (debulking 10/2012, adjuvant doxorubicin and carboplatin completed 05/2013) AREA:Brain PATIENT POSITION: Supine CONTRAST: None PROTOCOL: None FIXATION DEVICE: In order to achieve accurate and reproducible treatments, the patient is immobilized with custom 3-point mask and mold care. PROCEDURE: A time-out was conducted and recorded by the therapist. Patient was simulated on the Gamma Knife for SRS therapy. ASSESSMENT/PLAN: Patient tolerated simulation procedure well. Treatments will be initiated after treatment planning. Electronically Signed Devyn Clayton M.D. 0:29 AM XR CHEST 2V FRONTAL/LAT Observed: 2023 12:03 PM Status: F Source: [facility] * * *Final Report* * * DATE OF EXAM: Jun 14 2024 12:03PM WRX [id number] - XR CHEST 2V FRONTAL/LAT / PROCEDURE REASON: multiple diagnoses * * * * Physician Interpretation * * * * EXAMINATION: CHEST RADIOGRAPH (2 VIEW FRONTAL and LATERAL) CLINICAL HISTORY: Malignant neoplasm of upper-outer quadrant of left breast in female, estrogen receptor positive (HCC) MQ: XC2_6 EXAM DATE/TIME: 06/14/2024 12:03 PM COMPARISON: 04/07/2024 RESULT: Lines, tubes, and devices: None. Lungs and pleura: Large right-sided, and small left-sided pleural effusion with adjacent atelectasis. Grossly stable. No pneumothorax. Cardiomediastinal silhouette: Stable cardiomediastinal silhouette. Bones and soft tissues: Unremarkable. IMPRESSION: Stable chest Drafter: [facility] Transcribe Date/Time: Jun 14 2024 12:19P Dictated by : SIMIN OLIVARES MD This examination was interpreted and the report reviewed and electronically signed by: SIMIN OLIVARES MD on Jun 14 2024 12:24PM EST [id number] PROGRESS Observed: 06/14/2024 11:40 AM Status: COMPLETED Source: [facility] HNO ID: [id number] Author: PAZ SOLOMON RT(R) Service: ? Author Type: Technologist Type: Progress Notes Filed: 06/14/2024 15:29 Note Text: Radiology Service Progress Note PATIENT NAME: Joyce Robles DATE OF SERVICE: June 14, 2024 TIME: 3:28 PM PATIENT IDENTITY VERIFICATION COMPLETED USING TWO (2) IDENTIFIERS: Name and Date of confirmed by patient verbally. FALL SCREENING: Has the patient had 2 falls in the last year or 1 fall with injury or currently using an Ambulatory Assistive Device (Walker, Cane, Wheelchair, Crutches, etc.)? Yes, Patient High Risk for Falls What interventions were put in place to prevent falls during this visit? Increased Observations by Caregivers PATIENT GENDER DATA: Female. status: : No status: NO. PATIENT RELEVANT IMPLANT DATA REVIEWED: Not Applicable PATIENT PRESENTS WITH AN IMPLANTABLE OR ATTACHED RETAIL BUYER: No RADIOLOGY DEPARTMENT: General X-ray: Exam(s) Completed: Chest X-Ray PERIPHERAL IV DATA: Not applicable SIGNED BY: RT Starr(R) June 14, 2024 3:28 PM CNOVSP Observed: 06/14/2024 11:00 AM Status: COMPLETED Source: [facility] Visit (SP) Office (HEMAWS) JOYCE ROBLES ([id number]) 1955 F Date Time Provider Department 06/14/24 11:00 AM JAMI PEARCE During your visit today, we recorded the following information about you: Temperature Pulse Blood pressure Weight 97.6 degrees 110/minute 112/80 81.1 kg Jami Pearce APRN.CNP 06/16/2024 2:44 PM Signed Chief Complaint Patient presents with: Established Patient HPI: Joyce Robles is a 69 year old female who presents here today for follow up met. breast cancer. Per Dr. Albright's previous note: H/o diagnosed with ovarian cancer 10/2008. She underwent surgery [...] 2016. The pathology demonstrated a 2.5 cm ER/IA positive, HER2 negative tumor in the left breast with micro metastasis in 1 of 3 sentinel lymph nodes (0.8 mm). Overall grade was 3. Lymphovascular invasion was present. Closest margin was 2 mm from anterior margin. ER was positive greater than 95%. IA positive greater than 95% with moderate to strong staining intensity. HER2 was equivocal 1-2+; nonamplified by FISH testing. She declined adjuvant chemotherapy but received adjuvant radiation. Was started on AI with anastrozole beginning 10/2016. Was found to have germline BRCA2 mutation. She had declined prophylactic mastectomy and had been undergoing screening for breast cancer. Recently presented to [facility] on 03/12/2024 with a complaint of increasing shortness of breath. Prior to that she had been on a 10-day trip to [place]. CTA of the chest same day demonstrated [...] a day. Lives in town. Son in [place]--helps with house and yard. Daughter in [place]. about 3 years ago. No chest pain. 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 Current therapy:Lynparza Began 05/13/24 Pt. had two teeth extracted. No complications. Pt. scheduled for gamma knife on Fri. Appetite:"It's usually pretty good." Wt. down 6# since mid Apr. Energy level:"A little low." Denies fevers. Mouth:denies sores Resp:occ. dry cough, denies sob Cardiac:denies chest pain/palpitations GI:denies abd pain, +nausea-takes compazine with relief, denies vomiting, moving bowels regularly :denies dysuria/hematuria Extrem:denies pain Neuro:denies symptoms of neuropathy Skin:denies rashes Heme:denies bleeding, on eliquis The ROS is otherwise negative. Past medical history, appointments, medications, allergies reviewed. No changes. EXAM: BP 112/80 Pulse 110 Temp 36.4 ?C (97.6 ?F) (Oral) Wt 81.1 kg (178 lb 12.7 oz) BMI 30.52 kg/m? APPEARANCE Well appearing, alert, in no acute distress, well-hydrated, well nourished. HEART RRR with normal S1 and S2, no murmurs LUNG clear to auscultation, diminished R lower LYMPH NODES No cervical lymphadenopathy, No supraclavicular lymphadenopathy, and No axillary lymphadenopathy. ABDOMEN bowel sounds normoactive, soft, non-tender EXTREMITIES No edema NEURO Awake, alert and oriented x 3, Normal gait, and No involuntary motions. SKIN Skin color, texture, turgor normal, no suspicious rashes or lesions ASSESSMENT/PLAN: 1. Malignant neoplasm of upper-outer quadrant of left breast in female, estrogen receptor positive (HCC) - ICD9: 174.4, V86.0, ICD10: C50.412, Z17.0 (primary diagnosis) 2. 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 BRCA2 gene mutation positive - ICD9: V84.01, ICD10: Z15.01, Z15.[address] Albright's previous note: Assessment: -Metastatic recurrence of pT2b N1 WI (SN) ER/IA positive, HER2 negative invasive ductal carcinoma of [...] team. -Continue apixaban. -Scheduled for biweekly thoracentesis. - Overall tolerating lynparza fair d/t mild nausea/fatigue. - Reviewed CBC with pt. - CMP pending. - Continue current medications. - Continue current dose of lynparza. - Encouraged pt. to take compazine as needed. - Pt. scheduled for thoracentesis on Friday. - CXR today. - GK as scheduled on Fri. - Follow up with Dr. Albright in one month with CBC/CMP. - Pt. aware to call office with any questions/concerns. The patient indicates understanding of these issues and agrees with the plan. All documentation from previous visit of 05/04/24-Dr. Albright was copied and pasted, documentation has been reviewed and edited as necessary for today's visit. 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 Take 2 mg (1 tablet) three times a day for 2 days. Take 2 mg (1 tablet) twice a day for 2 days. Take 2 mg (1 tablet) once a day for 2 days. Then stop Decadron. Patient should start on June 17, 2024. - famotidine (PEPCID) 20 mg tablet Take 1 tablet by mouth two times a day. Stop the pepcid when you stop the decadron. - prochlorperazine (COMPAZINE) 10 mg tablet Take 1 tablet by mouth every 6 hours as needed (For chemotherapy induced nausea and vomiting). - hydrOXYzine pamoate (VISTARIL) 25 mg capsule [...] 120 mg by mouth once daily. - MULTI-VITAMIN ORAL Take 1 tablet by mouth once daily. - GLUCOSAMINE SULFATE (GLUCOSAMINE ORAL) Take 1 tablet by mouth once daily. - TURMERIC ROOT EXTRACT ORAL Take 450 mg by mouth once daily. 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] 05/04/2024 Malignant neoplasm metastatic to brain (HCC) [C*06/07/2024 Encounter Status:Closed by JAMI PEARCE on 06/16/24 COMP METAB 1999 PNL SERPL Collected: 10:39 AM Status: F Source: [facility] Order Comment: Specimen Type : BLOOD SPECIMEN Ordering Facility: [facility] Address: [address] [place] [id number] TYPE CODE TESTS RESULT OUT OF RANGE REFERENCE UNITS LAB 2885-2(LOINC) Prot SerPl-mCnc 6.4 6.3-8.0 g/dL LAB 1751-7(LOINC) Albumin SerPl-mCnc 3.8 Low 3.9-4.9 g/dL LAB 94933-7(LOINC) Calcium SerPl-mCnc 10.2 8.5-10.2 mg/dL LAB 1975-2(LOINC) Bilirub SerPl-mCnc 0.9 0.2-1.3 mg/dL LAB 6768-6(LOINC) ALP SerPl-cCnc 80 34-123 U/L LAB 1920-8(LOINC) AST SerPl-cCnc 18 13-35 U/L LAB 1742-6(LOINC) ALT SerPl-cCnc 9 7-38 U/L LAB 2345-7(LOINC) Glucose SerPl-mCnc 121 High 74-99 mg/dL Result Comment: The [place] Diabetes Association (ADA) provides guidance for cutoff values for fasting glucose and random glucose. The ADA defines fasting as no caloric intake for at least 8 hours. Fasting plasma glucose results between 100 to 125 mg/dL indicate increased risk for diabetes (prediabetes). Fasting plasma glucose results greater than or equal to 126 mg/dL meet the criteria for diagnosis of diabetes. In the absence of unequivocal hyperglycemia, results should be confirmed by repeat testing. In a patient with classic symptoms of hyperglycemia or hyperglycemic crisis, random plasma glucose results greater than or equal to 200 mg/dL meet the criteria for diagnosis of diabetes. Reference: Standards of Medical Care in Diabetes 2016, [place] Diabetes Association. Diabetes Care. 2016.39(Suppl 1). LAB 3094-0(LOINC) BUN SerPl-mCnc 18 7-21 mg/ dL LAB 2160-0(LOINC) Creat SerPl-mCnc 0.96 0.58-0.96 mg/dL LAB 2951-2(LOINC) Sodium SerPl-sCnc 139 136-144 mmol/L LAB 2823-3(LOINC) Potassium SerPl-sCnc 3.8 3.7-5.1 mmol/L LAB 2075-0(LOINC) Chloride SerPl-sCnc 104 98-107 mmol/L LAB 2027-9(LOINC) CO2 SerPl-sCnc 24 22-30 mmo l/L LAB 57386-6(LOINC) Anion Gap SerPl-sCnc 11 8-15 mmol/L LAB 72485-2(LOINC) Creatinine + eGFR Pnl SerPlBld 64 >=60 mL/min/1 .73m??? Result Comment: Estimated Gl omerular Filtration Rate (eGFR) is calculated using the 2020 CKD-EPI creatinine equation. This equation utilizes serum creatinine, sex, and age as parameters. The creatinine assay has traceable calibration to isotope dilution-mass spectrometry. Refer to KDIGO guidelines for clinical interpretation. In patients with unstable renal function, e.g. those with acute kidney injury, the eGFR may not accurately reflect actual GFR. Performed By: #### [id number] # ### [facility] CLIA [id number] [address] [place] [address] STATES OF [facility] CBC W AUTO DIFF BLD Collected: 06/14/2024 10:39 AM S tatus: F Source: [facility] Order Comment: Specimen Type : BLOOD SPECIMEN Ordering Facility: [facility] Address: [address] [place] [address] TYPE CODE TESTS RESULT OUT OF RANGE REFERENCE UNITS LAB 6690-2(LOINC) WBC # Bld Auto 5.66 3.70-11.00 k/uL LAB 789-8(LOINC) RBC # Bld Auto 4.04 3.90-5.20 m/ uL LAB 718-7(LOINC) Hgb Bld-mCnc 13.1 11.5-15.5 g/dL LAB 4544-3(LOINC) Hct VFr Bld Auto 39.0 36.0-46.0 % LAB 787-2(LOINC) MCV RBC Auto 96.5 80.0-100.0 fL LAB 785-6(LOINC) MCH RBC Qn Auto 32.4 26.0-34.0 p g LAB 786-4(LOINC) MCHC RBC Auto-mCnc 33.6 30.5-36.0 g/dL LAB 64975-1(LOINC) RDW RBC-Rto 15.6 High 11.5-15.0 % LAB 777-3(LOINC) Platelet # Bld Auto 255 150-400 k/uL LAB 84567-8([facility]) PMV Bld Auto 9.9 9.0-12.7 fL LAB 770-8(INC) Neutrophils/leuk NFr Bld Auto 69.9 % LAB 751-8(INC) Neutrophils # Bld Auto 3.96 1.45-7.50 k/uL LAB 736-9([facility]) Lymphocytes/leuk NFr Bld Auto 23.0 % LAB 731-0([facility]) Lymphocytes # Bld Auto 1.30 1.00-4.00 k/uL LAB 5905-5([facility]) Monocytes/leuk NFr Bld Auto 5.3 % LAB 742-7([facility]) Monocytes # Bld Auto 0.30 <0.87 k/uL LAB 713-8([facility]) Eosinophil/leuk NFr Bld Auto 0.7 % LAB 711-2([facility]) Eosinophil # Bld Auto 0.04 <0.46 k/uL LAB 706-2([facility]) Basophils/leuk NFr Bld Auto 0.7 % LAB 704-7([facility]) Basophils # Bld Auto 0.04 <0.11 k/uL LAB 62717-1([facility]) Imm Granulocytes/jose k NFr Bld Auto 0.4 % LAB 72624-2([facility]) Imm Granulocytes # Bld Auto <0.03 <0.10 k/uL LAB 07864-4([facility]) nRBC/100 WBC Bld-Rto 0.4 /100 WBC LAB 771-6([facility]) nRBC # Bld Auto 0.02 High <0.01 k/u L LAB 40335-7([facility]) Differential method Bld Auto Performed By: #### [id number] # ### [facility] CLIA [id number] [address] [place] [address] OF [facility] PROGRESS Observed: 06/14/2024 10:32 AM Status: COMPLETED Source: [facility] HNO ID: [id number] Author: JAMI PEARCE APRN.SOLE MOLDER Service: ? Author Type: Nurse Practitioner Type: Progress Notes Filed: 06/16/2024 14:44 Note Text: Chief Complaint Patient presents with: Established Patient HPI: Joyce Robles is a 69 year old female who presents here today for follow up met. breast cancer. Per Dr. Albright's previous note: H/o diagnosed with ovarian cancer 10/2008. She underwent surgery [...] 2016. The pathology demonstrated a 2.5 cm ER/IA positive, HER2 negative tumor in the left breast with micro metastasis in 1 of 3 sentinel lymph nodes (0.8 mm). Overall grade was 3. Lymphovascular invasion was present. Closest margin was 2 mm from anterior margin. ER was positive greater than 95%. IA positive greater than 95% with moderate to strong staining intensity. HER2 was equivocal 1-2+; nonamplified by FISH testing. She declined adjuvant chemotherapy but received adjuvant radiation. Was started on AI with anastrozole beginning 10/2016. Was found to have germline BRCA2 mutation. She had declined prophylactic mastectomy and had been undergoing screening for breast cancer. Recently presented to [facility] on 03/12/2024 with a complaint of increasing shortness of breath. Prior to that she had been on a 10-day trip to [place]. CTA of the chest same day demonstrated [...] a day. Lives in town. Son in [place]--helps with house and yard. Daughter in [place]. about 3 years ago. No chest pain. 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 Current therapy:Lynparza Began 05/13/24 Pt. had two teeth extracted. No complications. Pt. scheduled for gamma knife on Fri. Appetite:"It's usually pretty good." Wt. down 6# since mid Apr. Energy level:"A little low." Denies fevers. Mouth:denies sores Resp:occ. dry cough, denies sob Cardiac:denies chest pain/palpitations GI:denies abd pain, +nausea-takes compazine with relief, denies vomiting, moving bowels regularly :denies dysuria/hematuria Extrem:denies pain Neuro:denies symptoms of neuropathy Skin:denies rashes Heme:denies bleeding, on eliquis The ROS is otherwise negative. Past medical history, appointments, medications, allergies reviewed. No changes. EXAM: BP 112/80 Pulse 110 Temp 36.4 ?C (97.6 ?F) (Oral) Wt 81.1 kg (178 lb 12.7 oz) BMI 30.52 kg/m? APPEARANCE Well appearing, alert, in no acute distress, well-hydrated, well nourished. HEART RRR with normal S1 and S2, no murmurs LUNG clear to auscultation, diminished R lower LYMPH NODES No cervical lymphadenopathy, No supraclavicular lymphadenopathy, and No axillary lymphadenopathy. ABDOMEN bowel sounds normoactive, soft, non-tender EXTREMITIES No edema NEURO Awake, alert and oriented x 3, Normal gait, and No involuntary motions. SKIN Skin color, texture, turgor normal, no suspicious rashes or lesions ASSESSMENT/PLAN: 1. Malignant neoplasm of upper-outer quadrant of left breast in female, estrogen receptor positive (HCC) - ICD9: 174.4, V86.0, ICD10: C50.412, Z17.0 (primary diagnosis) 2. 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 BRCA2 gene mutation positive - ICD9: V84.01, ICD10: Z15.01, Z15.[address] Albright's previous note: Assessment: -Metastatic recurrence of pT2b N1 WI (SN) ER/IA positive, HER2 negative invasive ductal carcinoma of [...] team. -Continue apixaban. -Scheduled for biweekly thoracentesis. - Overall tolerating lynparza fair d/t mild nausea/fatigue. - Reviewed CBC with pt. - CMP pending. - Continue current medications. - Continue current dose of lynparza. - Encouraged pt. to take compazine as needed. - Pt. scheduled for thoracentesis on Friday. - CXR today. - GK as scheduled on Fri. - Follow up with Dr. Albright in one month with CBC/CMP. - Pt. aware to call office with any questions/concerns. The patient indicates understanding of these issues and agrees with the plan. All documentation from previous visit of 05/04/24-Dr. Albright was copied and pasted, documentation has been reviewed and edited as necessary for today's visit. Jami Pearce APRN.SOLE MOLDER PROGRESS Observed: 06/07/2024 9:40 AM Status: COMPLETED Source: [facility] HNO ID: [id number] Author: SWAPNIL GONZALES MD Service: ? Author Type: Physician Type: Progress Notes Filed: 06/07/2024 10:11 Note Text: [facility] Virtual Visit Consultation The patient was referred by John Albright DO. I will convey my opinions and recommendations to him through our common electronic medical record. We had a virtual visit conducted via Zoom. I received consent from the patient to perform the visit using this platform. I have communicated my name and active licensure. The patient's identity and physical location were verified at the time of this visit. Either the patient or their legal textiles sales representative has been informed of the risks and benefits of -- and alternatives to -- treatment through a remote evaluation and consents to proceed with the evaluation remotely. Diagnosis: Breast cancer with brain mets Subjective History of Present Illness: DIAGNOSIS: 69 year old female right handed kco ovarian cancer and breast cancer found to have brain metastatic lesion in MRI done for staging She denies headache, nausea, vomiting, seizure, LOC , weakness, numbness, vision problems BRIEF ONCOLOGIC HISTORY: History of stage IIIB ovarian cancer (surgery 10/2008, followed by 6 cycles carboplatin and paclitaxel completed 04/2009) with recurrence (debulking 10/2012, adjuvant doxorubicin and carboplatin completed 05/2013) 04/2016 - left lumpectomy with SLNBx for screen-detected breast cancer. Pathology showing 2.5 cm ER/IA positive, HER2 negative tumor in the left breast with micro metastasis in 1 of 3 sentinel lymph nodes. Grade 3. LVSI was present. 08/2016 - Completed adjuvant radiation 50Gy/25fx whole left breast + 16 Gy/8fx scar boost with Dr. Li at OSH 10/2016 - Started on aromatase inhibitor, stopped 02/2024 - Shortness of breath during trip to [place] , prompted CTA, which showed pulmonary emboli and pleural effusion. 03/14/24 - Thoracentesis. Cytology showed malignant cells consistent with breast primary. 04/27/24 - PET showing bony metastases 04/28/24 - MRI brain showing small focal enhancing nodule measuring 4 mm along the posterior lateral aspect of the right occipital lobe with minimal surrounding edema 05/14/24 - started on olaparib Last Chemo: nil Current Steroids dose: nil Current AED Dose: nil Therapy Status Data Form Past Medical History: PAST MEDICAL HISTORY Diagnosis Date Breast cancer (HCC) Essential hypertension Hypoxemia Ovarian cancer (HCC) Pulmonary embolism (HCC) Past Surgical History: PAST SURGICAL HISTORY Procedure Laterality Date BSO W/TIESHA AND OMENECTOMY FOR MALIGNANCY 07/14/2012 BX BREAST W/DEVICE 1ST LESION ULTRASOUND GUID Left 04/04/2016 U/S Bx outer mid left breast BX/EXC LYMPH NODE OPEN DEEP AXILLARY NODE Left 04/29/2016 HYSTERECTOMY HX 2009 LX PARTIAL COLECTOMY 07/14/2012 MASTECTOMY, PARTIAL Left 04/29/2016 PAST SURGICAL HISTORY OF Left ablation of vein of left leg for venous reflux Family History: FAMILY HISTORY Problem Relation Age of Onset Hypertension Mother other (pulmonary embolism) Mother Stroke Father Heart Brother Heart Attack Brother Colon Cancer Maternal Grandmother Heart Maternal Grandfather Prostate Cancer Paternal Grandfather Breast Cancer Maternal Aunt Cancer Maternal Aunt liver Ovarian cancer Maternal cousin Breast Cancer Paternal Aunt Breast Cancer Paternal cousin Breast Cancer Paternal cousin Social History Tobacco Use Smoking status: Never Smokeless tobacco: Never Vaping Use Vaping status: Never Used Substance Use Topics Alcohol use: Yes Comment: occ Drug use: Never Allergies: Demeral [Meperidine] and Percocet [Oxycodone-Acetaminophen] Current Outpatient Medications Medication Sig prochlorperazine (COMPAZINE) 10 mg tablet Take 1 tablet by mouth every 6 hours as needed (For chemotherapy induced nausea and vomiting). ondansetron (ZOFRAN) 8 mg tablet Take 1 tablet by mouth every 8 hours as needed (For chemotherapy induced nausea and vomiting). (Patient not taking: Reported on 06/04/2024) hydrOXYzine pamoate (VISTARIL) 25 mg capsule TAKE 1 (ONE) CAPSULE BY MOUTH DAILY AT BEDTIME NEEDED FOR SLEEP calcium carbonate/vitamin D3 (CALCIUM + D ORAL) Take 1 tablet by mouth once daily. olaparib (LYNPARZA) 150 mg tablet Take 2 tablets (300mg) by mouth two times a day. apixaban (ELIQUIS) 5 mg tab(s) Take 5 [...] Take 450 mg by mouth once daily. No current facility-administered medications for this visit. Review of systems: Constitutional: No recent fever or weight loss. Eyes: No history of glaucoma or cataracts. ENMT: No recent ear infection, nasal congestion, mouth sores or sore throat. CV: No history of chest pain, palpitations or leg swelling. Respiratory: No history of SOB, asthma or recent cough. Gastrointestinal: No history of nausea, vomiting, dysphagia or abdominal pain. Genitourinary: No history of hematuria or dysuria. Musculoskeletal: No complaint of arthritis, unstable gait or arm/leg weakness. Psychiatric: No history of hallucinations or depression or anxiety. ROS Neurological: No complaint of headache. No complaint of tinnitus. No complaint of decreased hearing. No complaint of diplopia. No complaints of decreased visual acuity. No complaint of arm/leg numbness. No problem with limb coordination. No complaint of syncope, seizures or disorientation. Objective Physical Exam: There were no vitals taken for this visit. General appearance: well appearing, in no acute distress, alert Head: NC/AT Eyes: clear, anicteric Oropharynx: clear, no lesions Neck: supple, no LAD Lungs: CTA bilaterally, no W/C Heart: RR without murmur noted Abdomen: soft, NT/ND Extremities: warm, no cyanosis or edema Skin: color, texture, and turgor unremarkable. No rashes or lesions. PE Neuro: AANDO x3. CN II-XII grossly intact. Motor: appropriate muscle bulk, tone, and strength. Sensorium: grossly intact. Gait: Unremarkable Karnofsky performance status: 100 - Normal, no complaints, no evidence of disease. ECOG performance status: 0 - Fully active, able to carry on all pre-disease performance without restriction. PHQ depression alert addressed with patient: No No data to display Labs: Latest Ref Rng AND Units 05/26/2024 CBC WBC 3.70 - 11.00 k/uL 6.65 RBC 3.90 - 5.20 m/uL 4.42 Hemoglobin 11.5 - 15.5 g/dL 13.7 Hematocrit 36.0 - 46.0 % 42.2 MCV 80.0 - 100.0 fL 95.5 MCH 26.0 - 34.0 pg 31.0 MCHC 30.5 - 36.0 g/dL 32.5 RDW-CV 11.5 - 15.0 % 12.5 Platelet Count 150 - 400 k/uL 255 MPV 9.0 - 12.7 fL 9.4 Baso% % 0.6 Abs Neut (ANC) 1.45 - 7.50 k/uL 5.18 Abs Lymph 1.00 - 4.00 k/uL 1.16 Abs Pacific <0.87 k/uL 0.22 Abs Eosin <0.46 k/uL 0.03 Abs Baso <0.11 k/uL 0.04 NRBC /100 WBC 0.3 Latest Ref Rng AND Units 05/26/2024 CMP Sodium 136 - 144 mmol/L 140 Potassium 3.7 - 5.1 mmol/L 3.8 Chloride 98 - 107 mmol/L 103 CO2 22 - 30 mmol/L 29 Glucose 74 - 99 mg/dL 157 BUN 7 - 21 mg/dL 15 Creatinine 0.58 - 0.96 mg/dL 0.90 EGFR >=60 mL/min/1.73m? 69 Protein, Total 6.3 - 8.0 g/dL 6.4 Albumin 3.9 - 4.9 g/dL 3.7 Calcium 8.5 - 10.2 mg/dL 10.2 Bilirubin, Total 0.2 - 1.3 mg/dL 0.6 AST 13 - 35 U/L 17 ALT 7 - 38 U/L 10 Alkaline Phosphatase 34 - 123 U/L 76 Final Pathology: nil Imaging: MRI Report No resulted procedures found. MRI 04/2024 right occipital brain metastatic lesion with minimal surrounding edema Data Review: Personal review of medical records: I reviewed the [facility] chart. Personal review of image, tracing or specimen: I personally reviewed her recent brain MRI. It shows a small, enhancing mass in the right occipital lobe, most consistent with a metastatic tumor with minimal surrounding edema Multifocal: No Subependymal spread: No Assessment AND Plan Diagnosis: Breast Ca metastatic to brain Treatment Options and Risks: I have discussed the management options and their respective risks and benefits with the patient. We reviewed the radiographic findings outlined above. We discussed observation, surgery (craniotomy, laser ablation vs. biopsy), chemotherapy, radiation, and radiosurgery. I favor Gamma Knife radiosurgery. We discussed the mask-based Gamma Knife procedure. The morning of the procedure an IV is started and an MRI, CT scan, and cone-beam CT scan (on Gamma Knife itself) obtained, and a thermoplastic mask is made. The images are transferred to our planning computer where I fuse the images and define regions to be treated (or not). I then perform a plan. by applying different size, intensities and locations of focused radiation to the lesions such that the end result is that the treatment dose of radiation nearly matches the size, shape and location of the lesions. After imaging and mask-making she can wander until treatment time. When I have completed my portion of the plan, the radiation oncologist reviews the plan and assigns a dose of radiation. The radiation physicist reviews the plan and confirms the machine is working properly. Treatment typically is in the late morning or early afternoon. The patient lies down on the treatment couch and the mask is part of a positioning device that will direct, with great accuracy, up to 192 beams of radiation to converge at the point I picked on the computer. The staff will leave the room prior to treatment and the patient will be monitored by several television cameras and 2 intercom systems. The patient will then slide into the device up to their lower chest for the duration of treatment, and then exit. Once the treatment is completed, the patient will be taken to the their room where they will be observed and postoperative and follow-up instructions will be given prior to discharge. We had an informed consent discussion Recommendations: As above Medicines: No Change Instructions: Continue present activity. Report for Gamma Knife as instructed. Medical Decision Making: Problems: Moderate: New problem with uncertain prognosis Data: Unique test result(s) reviewed: 1 Unique test(s) ordered: 2 Risk: Moderate: Moderate risk from testing/treatment Medical Decision Making Level: 4 - Moderate Candelaria Elias MD 10:00 am 06/07/2024 [facility] No resident was available to participate in this visit. I saw and evaluated the patient. I reviewed the note and amended as necessary. Swapnil Gonzales MD Electronically signed June 07, 2024 10:04 AM cc:Teetee Michaud MD. John Albright DO - Electronically copied PROGRESS Observed: 06/04/2024 10:00 AM Status: COMPLETED Source: [facility] HNO ID: [id number] Author: JESSIE CLAYTON MD Service: ? Author Type: Physician Type: Progress Notes Filed: 06/04/2024 19:51 Note Text: Radiation Oncology - New Patient/Consult Note PATIENT NAME: Joyce Robles PATIENT REQUESTING PROVIDER: Dr. Albright. DIAGNOSIS: 69 year old female with germline BRCA2 mutation and: Metastatic breast adenocarcinoma with one 4mm intracranial metastasis History of stage IIIB ovarian cancer (surgery 10/2008, followed by 6 cycles carboplatin and paclitaxel completed 04/2009) with recurrence (debulking 10/2012, adjuvant doxorubicin and carboplatin completed 05/2013) BRIEF ONCOLOGIC HISTORY: 04/2016 - left lumpectomy with SLNBx for screen-detected breast cancer. Pathology showing 2.5 cm ER/IA positive, HER2 negative tumor in the left breast with micro metastasis in 1 of 3 sentinel lymph nodes. Grade 3. LVSI was present. 08/2016 - Completed adjuvant radiation 50Gy/25fx whole left breast + 16 Gy/8fx scar boost with Dr. Li at OSH 10/2016 - Started on aromatase inhibitor, stopped 02/2024 - Shortness of breath prompted CTA, which showed pulmonary emboli and pleural effusion. 03/14/24 - Thoracentesis. Cytology showed malignant cells consistent with breast primary. 04/27/24 - PET showing bony metastases 04/28/24 - MRI brain showing small focal enhancing nodule measuring 4 mm along the posterior lateral aspect of the right occipital lobe with minimal surrounding edema 05/14/24 - started on olaparib HPI: The patient is a 69 year old, right handed female who presents with above diagnosis, for an opinion regarding the role of radiation therapy in the management of the patient's disease. Final recommendations will be communicated back to the requesting physician by way of the shared medical record, or letter to requesting physician via US mail. See onc history described above. Patient is currently feeling well. Endorses a couple years of headaches in the morning which go away throughout the day. Denies vision change, hearing change, taste change, weakness, discoordination, or paresthesias. Not currently on steroids. Scheduled to see Dr. Gonzales on 06/07/24. Past medical history: HTN, hx PE on eliquis Prior radiation therapy? Yes in 2017 Left whole breast Active lupus, scleroderma, interstitial lung disease, or inflammatory bowel disease? No Currently on immunotherapy or chemotherapy? No Currently on targeted biologic therapy? Yes, Olaparib Has been diagnosed with a genetic cancer syndrome? Yes, BRCA2 germline mutation SOCIAL HISTORY: Lives in: [place], [place] MEDICATIONS: prochlorperazine (COMPAZINE) 10 mg tablet Take 1 tablet by mouth every 6 hours as needed (For chemotherapy induced nausea and vomiting). ondansetron (ZOFRAN) 8 mg tablet Take 1 tablet by mouth every 8 hours as needed (For chemotherapy induced nausea and vomiting). hydrOXYzine pamoate (VISTARIL) 25 mg capsule TAKE 1 (ONE) CAPSULE BY MOUTH DAILY AT BEDTIME NEEDED FOR SLEEP calcium carbonate/vitamin D3 (CALCIUM + D ORAL) Take 1 tablet by mouth once daily. olaparib (LYNPARZA) 150 mg tablet Take 2 tablets (300mg) by mouth two times a day. apixaban (ELIQUIS) 5 mg tab(s) Take 5 [...] Take 450 mg by mouth once daily. Review of systems: see HPI PHYSICAL EXAM: VS: There were no vitals taken for this visit. KPS: 80 Neuro function score (NFS): NFS 0 (No neurologic symptoms; fully active at home/work without assistance) General Appearance: Alert and oriented. RADIOLOGY/LABORATORY DATA: Independently reviewed MRI brain 04/28/24 Independently reviewed PET/CT 04/27/24 04/28/24 AX T1 FSE C+ ASSESSMENT AND PLAN: In summary, Joyce Robles is a 69 year old female with metastatic breast cancer. Has a single intracranial met in the Right occipital lobe. She is asymptomatic. Joyce Robles is appropriate for consideration of GKRS. We discussed the risks, benefits, alternatives, personnel, and photography involved with gamma knife radiosurgery with Joyce Robles who understands and agrees to proceed. GKBMET: Primary disease controlled:Yes, Extracranial disease:Yes, Prior systemic therapy for metastasis:Yes, # of brain metastases: 1, GTR of brain metastasis:No, Prior WBRT:No, Planned dose (use highest dose for multiple lesions): 24 Radiosurgery will be done in a single fraction using the Gamma Knife Icon/Espirit system, which uses up to 192 beams of radiation. A head CT and brain MRI will be performed the day of the procedure. The images will be co registered for target contouring and treatment planning. The CT scan is necessary to correct for the spatial distortion of the MRI. Both scans will be evaluated by a radiologist and the results will be discussed with the patient. Petar Reardon MD STAFF ADDENDUM I saw and evaluated the patient. I personally obtained the weiner and critical portions of the history and physical exam. I reviewed the resident's documentation and discussed the patient with the resident. I agree with the resident's medical decision making as documented in the resident's note. 69 year old female with germline BRCA2 mutation and: 1) Metastatic breast adenocarcinoma with one 4mm intracranial metastasis 2) History of stage IIIB ovarian cancer (surgery 10/2008, followed by 6 cycles carboplatin and paclitaxel completed 04/2009) with recurrence (debulking 10/2012, adjuvant doxorubicin and carboplatin completed 05/2013) Now with new R occipital brain metastasis. I recommend SRS to treat her new small brain metastasis. She is scheduled to see Dr. Gonzales on 06/07/24. R/B/A/P/C of GKRS were discussed. She is interested in proceeding. She will be scheduled accordingly. Jessie Clayton MD cc: Teetee Michaud ([facility]) [address] [facility] [address] [place] [address] John Albright [address] [facility] [address] Patient Care Team: Teetee Michaud MD as PCP - General (Family Medicine) CNOV Observed: 06/04/2024 10:00 AM Status: COMPLETED Source: [facility] Office Visit (RADTMN) JOYCE ROBLES ([id number]) 1955 F Date Time Provider Department 06/04/24 10:00 AM JESSIE CLAYTON RADMODESTO During your visit today, we recorded the following information about you: Temperature Pulse Respiration Blood pressure 97.6 degrees 100/minute 16/minute 136/72 Weight 80.3 kg Jessie Clayton MD 06/04/2024 7:51 PM Signed Radiation Oncology - New Patient/Consult Note PATIENT NAME: Joyce Robles PATIENT REQUESTING PROVIDER: Dr. Albright. DIAGNOSIS: 69 year old female with germline BRCA2 mutation and: Metastatic breast adenocarcinoma with one 4mm intracranial metastasis History of stage IIIB ovarian cancer (surgery 10/2008, followed by 6 cycles carboplatin and paclitaxel completed 04/2009) with recurrence (debulking 10/2012, adjuvant doxorubicin and carboplatin completed 05/2013) BRIEF ONCOLOGIC HISTORY: 04/2016 - left lumpectomy with SLNBx for screen-detected breast cancer. Pathology showing 2.5 cm ER/IA positive, HER2 negative tumor in the left breast with micro metastasis in 1 of 3 sentinel lymph nodes. Grade 3. LVSI was present. 08/2016 - Completed adjuvant radiation 50Gy/25fx whole left breast + 16 Gy/8fx scar boost with Dr. Li at OSH 10/2016 - Started on aromatase inhibitor, stopped 02/2024 - Shortness of breath prompted CTA, which showed pulmonary emboli and pleural effusion. 03/14/24 - Thoracentesis. Cytology showed malignant cells consistent with breast primary. 04/27/24 - PET showing bony metastases 04/28/24 - MRI brain showing small focal enhancing nodule measuring 4 mm along the posterior lateral aspect of the right occipital lobe with minimal surrounding edema 05/14/24 - started on olaparib HPI: The patient is a 69 year old, right handed female who presents with above diagnosis, for an opinion regarding the role of radiation therapy in the management of the patient's disease. Final recommendations will be communicated back to the requesting physician by way of the shared medical record, or letter to requesting physician via [place] mail. See onc history described above. Patient is currently feeling well. Endorses a couple years of headaches in the morning which go away throughout the day. Denies vision change, hearing change, taste change, weakness, discoordination, or paresthesias. Not currently on steroids. Scheduled to see Dr. Gonzales on 06/07/24. Past medical history: HTN, hx PE on eliquis Prior radiation therapy? Yes in 2017 Left whole breast Active lupus, scleroderma, interstitial lung disease, or inflammatory bowel disease? No Currently on immunotherapy or chemotherapy? No Currently on targeted biologic therapy? Yes, Olaparib Has been diagnosed with a genetic cancer syndrome? Yes, BRCA2 germline mutation SOCIAL HISTORY: Lives in: [place], [place] MEDICATIONS: prochlorperazine (COMPAZINE) 10 mg tablet Take 1 tablet by mouth every 6 hours as needed (For chemotherapy induced nausea and vomiting). ondansetron (ZOFRAN) 8 mg tablet Take 1 tablet by mouth every 8 hours as needed (For chemotherapy induced nausea and vomiting). hydrOXYzine pamoate (VISTARIL) 25 mg capsule TAKE 1 (ONE) CAPSULE BY MOUTH DAILY AT BEDTIME NEEDED FOR SLEEP calcium carbonate/vitamin D3 (CALCIUM + D ORAL) Take 1 tablet by mouth once daily. olaparib (LYNPARZA) 150 mg tablet Take 2 tablets (300mg) by mouth two times a day. apixaban (ELIQUIS) 5 mg tab(s) Take 5 [...] Take 450 mg by mouth once daily. Review of systems: see HPI PHYSICAL EXAM: VS: There were no vitals taken for this visit. KPS: 80 Neuro function score (NFS): NFS 0 (No neurologic symptoms; fully active at home/work without assistance) General Appearance: Alert and oriented. RADIOLOGY/LABORATORY DATA: Independently reviewed MRI brain 04/28/24 Independently reviewed PET/CT 04/27/24 04/28/24 AX T1 FSE C+ ASSESSMENT AND PLAN: In summary, Joyce Robles is a 69 year old female with metastatic breast cancer. Has a single intracranial met in the Right occipital lobe. She is asymptomatic. Joyce Robles is appropriate for consideration of GKRS. We discussed the risks, benefits, alternatives, personnel, and photography involved with gamma knife radiosurgery with Joyce Robles who understands and agrees to proceed. GKBMET: Primary disease controlled:Yes, Extracranial disease:Yes, Prior systemic therapy for metastasis:Yes, # of brain metastases: 1, GTR of brain metastasis:No, Prior WBRT:No, Planned dose (use highest dose for multiple lesions): 24 Radiosurgery will be done in a single fraction using the Gamma Knife Icon/Espirit system, which uses up to 192 beams of radiation. A head CT and brain MRI will be performed the day of the procedure. The images will be co registered for target contouring and treatment planning. The CT scan is necessary to correct for the spatial distortion of the MRI. Both scans will be evaluated by a radiologist and the results will be discussed with the patient. Petar Reardon MD STAFF ADDENDUM I saw and evaluated the patient. I personally obtained the weiner and critical portions of the history and physical exam. I reviewed the resident's documentation and discussed the patient with the resident. I agree with the resident's medical decision making as documented in the resident's note. 69 year old female with germline BRCA2 mutation and: 1) Metastatic breast adenocarcinoma with one 4mm intracranial metastasis 2) History of stage IIIB ovarian cancer (surgery 10/2008, followed by 6 cycles carboplatin and paclitaxel completed 04/2009) with recurrence (debulking 10/2012, adjuvant doxorubicin and carboplatin completed 05/2013) Now with new R occipital brain metastasis. I recommend SRS to treat her new small brain metastasis. She is scheduled to see Dr. Gonzales on 06/07/24. R/B/A/P/C of GKRS were discussed. She is interested in proceeding. She will be scheduled accordingly. 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 - ondansetron (ZOFRAN) 8 mg tablet Take 1 tablet by mouth every 8 hours as needed (For chemotherapy induced nausea and vomiting). - hydrOXYzine pamoate (VISTARIL) 25 mg capsule [...] Take 450 mg by mouth once daily. 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 Author Type: ? Type: Progress Notes Filed: 06/03/2024 11:57 Note Text: [facility] Refill Assessment Medication(s): Lynparza Reviewed TE note on 05/20/24 - pt reporting nausea, took zofran which caused CHU, constipation. Pt also reporting fatigue, asking about DR - recommended to discuss at next f/u. Labs reviewed 05/26/24 - Hep B neg, CBC WNL to continue. Next clinic visit scheduled 06/14/24. ALLERGIES Allergen Reactions Demeral [Meperidine] GI Upset Percocet [Oxycodone* GI Upset Patient's current medication list and adherence status to current therapy were reviewed by Specialty Pharmacy clinical pharmacist to identify any new drug interactions or non-compliance to therapy. Therapy continues to be appropriate for disease, patient response, and medical condition. Verification of therapeutic benefit and effectiveness with current therapy was completed. Adverse events, barriers in adherence, and side effects were assessed and addressed if applicable. Will proceed with refill with no changes in therapy - patient progressing towards achieving therapeutic goals based on medication-specific laboratory parameters, disease state markers and outcomes. Office/provider notes have been reviewed prior to dispensing the medication. Irma Sawyer, PharmD Clinical Pharmacist, Oncology [facility] P: , F: Pool: P [facility] Pool #: [id number] Skin Diver Assessment Patient confirmed: Yes Med/dose confirmed: Yes Supplies needed: No supplies needed Missed doses: No Estimated days supply on hand: 7 Copay amount: 0 Copay form of payment: (N/A) Payment confirmed: Yes Delivery method: FedEx Signature required: No Delivery address: [address] [place] [id number] Delivery date: 06/07/24 Questions or concerns for the pharmacist?: No Did you have any side effects believed to be related to this medication, that resulted in hospitalization?: No Current Outpatient Medications on File Prior to Visit Medication Sig prochlorperazine (COMPAZINE) 10 mg tablet Take 1 tablet by mouth every 6 hours as needed (For chemotherapy induced nausea and vomiting). ondansetron (ZOFRAN) 8 mg tablet Take 1 tablet by mouth every 8 hours as needed (For chemotherapy induced nausea and vomiting). hydrOXYzine pamoate (VISTARIL) 25 mg capsule TAKE 1 (ONE) CAPSULE BY MOUTH DAILY AT BEDTIME NEEDED FOR SLEEP calcium carbonate/vitamin D3 (CALCIUM + D ORAL) Take 1 tablet by mouth once daily. olaparib (LYNPARZA) 150 mg tablet Take 2 tablets (300mg) by mouth two times a day. apixaban (ELIQUIS) 5 mg tab(s) Take 5 [...] Take 450 mg by mouth once daily. No current facility-administered medications on file prior to visit. [facility] CLINICAL ASSESSMENT - HEMATOLOGY ONCOLOGY V6: Ivent complete: No Assessment to use: Refill Lab monitoring inclusive of CBC, Chem-7, and other labs as pertinent for therapy: Yes Chemo cycle timing assessment: N/A Assessment of injection issues: N/A Current medication list (including drug interaction assessment): Yes Experience of adverse reactions to the medication: Yes Date of influenza vaccination reminder: 05/07/2024 Date of most recent vaccination assessment: 05/07/2024 Treatment Plan Information: Diagnosis:metastatic breast , ER/IA positive, HER2 negative, Bone metastases -History of [...] mg-to-mg basis - Avoid grapefruit, grapefruit juice, [place] oranges, or [place] orange juice. Supportive Care: Mild emetogenic potential per Lexicomp Side Effects/Warnings: include but are not limited to bone marrow suppression, hypersensitivity, pulmonary toxicity (pneumonitis), secondary malignancies (MDS/AML), skin rash, hypomagnesemia, abdominal pain, constipation, diarrhea, nausea, stomatitis, arthralgia Monitoring: - CBC - Renal function Drug-Drug Interactions: None identifiedper Lexicomp on 05/07/24 Baseline: 03/13/2024(scanned docs from [facility]) - CBC: Hgb 13.5 Plt 171 , ANC 5.7 - estim EGFR 125 125 SCr 0.52 - HBV Panel: none-will recommend ECHO 04/16/24 :QTC Calculation ([place]): 432 (P) Overdue for some routine immunizations, Patient has access to reminders. Discontinue Letrozole when starting Lynparza. Est. Tx Plan Start Date: No information available Estimated Start Date Info: Per Dr. Albright's discretion In line with ASCO and NCCN recommendations, please consider ordering a Hepatitis Remote Panel for hepatitis B screening in patients anticipating systemic anticancer therapy. Est. Estimated Treatment Duration: Continue until disease progression or unacceptable toxicity. Sharita De COMP METAB 2000 PNL SERPL Collected: 10:28 AM Status: F Source: [facility] Order Comment: Specimen Type : BLOOD SPECIMEN Ordering Facility: [facility] Address: [address] [place] [address] TYPE CODE TESTS RESULT OUT OF RANGE REFERENCE UNITS LAB 2885-2(LOINC) Prot SerPl-mCnc 6.4 6.3-8.0 g/dL LAB 1751-7(LOINC) Albumin SerPl-mCnc 3.7 Low 3.9-4.9 g/dL LAB 69048-8(LOINC) Calcium SerPl-mCnc 10.2 8.5-10.2 mg/dL LAB 1975-2(LOINC) Bilirub SerPl-mCnc 0.6 0.2-1.3 mg/dL LAB 6768-6(LOINC) ALP SerPl-cCnc 76 34-123 U/L LAB 1920-8(LOINC) AST SerPl-cCnc 17 13-35 U/L LAB 1742-6(LOINC) ALT SerPl-cCnc 10 7-38 U/L LAB 2345-7(LOINC) Glucose SerPl-mCnc 157 High 74-99 mg/dL Result Comment: The [place] Diabetes Association (ADA) provides guidance for cutoff values for fasting glucose and random glucose. The ADA defines fasting as no caloric intake for at least 8 hours. Fasting plasma glucose results between 100 to 125 mg/dL indicate increased risk for diabetes (prediabetes). Fasting plasma glucose results greater than or equal to 126 mg/dL meet the criteria for diagnosis of diabetes. In the absence of unequivocal hyperglycemia, results should be confirmed by repeat testing. In a patient with classic symptoms of hyperglycemia or hyperglycemic crisis, random plasma glucose results greater than or equal to 200 mg/dL meet the criteria for diagnosis of diabetes. Reference: Standards of Medical Care in Diabetes 2016, [place] Diabetes Association. Diabetes Care. 2016.39(Suppl 1). LAB 3094-0(LOINC) BUN SerPl-mCnc 15 7-21 mg/ dL LAB 2160-0(LOINC) Creat SerPl-mCnc 0.90 0.58-0.96 mg/dL LAB 2951-2(LOINC) Sodium SerPl-sCnc 140 136-144 mmol/L LAB 2823-3(LOINC) Potassium SerPl-sCnc 3.8 3.7-5.1 mmol/L LAB 2075-0(LOINC) Chloride SerPl-sCnc 103 98-107 mmol/L LAB 2028-9(LOINC) CO2 SerPl-sCnc 29 22-30 mmo l/L LAB 01997-1(LOINC) Anion Gap SerPl-sCnc 8 8-15 mmol/L LAB 49341-0(LOINC) Creatinine + eGFR Pnl SerPlBld 69 >=60 mL/min/1 .73m??? Result Comment: Estimated Gl omerular Filtration Rate (eGFR) is calculated using the 202 CKD-EPI creatinine equation. This equation utilizes serum creatinine, sex, and age as parameters. The creatinine assay has traceable calibration to isotope dilution-mass spectrometry. Refer to KDIGO guidelines for clinical interpretation. In patients with unstable renal function, e.g. those with acute kidney injury, the eGFR may not accurately reflect actual GFR. Performed By: #### [id number] # ### [facility] CLIA [id number] [address] [place] [address] [place] CBC W AUTO DIFF BLD Collected: 05/26/2024 10:28 AM S tatus: F Source: [facility] Order Comment: Specimen Type : BLOOD SPECIMEN Ordering Facility: [facility] Address: [address] [place] [address] TYPE CODE TESTS RESULT OUT OF RANGE REFERENCE UNITS LAB 6690-2([facility]) WBC # Bld Auto 6.65 3.70-11.00 k/uL LAB 789-8([facility]) RBC # Bld Auto 4.42 3.90-5.20 m/ uL LAB 718-7([facility]) Hgb Bld-mCnc 13.7 11.5-15.5 g/dL LAB 4544-3([facility]) Hct VFr Bld Auto 42.2 36.0-46.0 % LAB 787-2([facility]) MCV RBC Auto 95.5 80.0-100.0 fL LAB 785-6([facility]) MCH RBC Qn Auto 31.0 26.0-34.0 p g LAB 786-4([facility]) MCHC RBC Auto-mCnc 32.5 30.5-36.0 g/dL LAB 72767-0([facility]) RDW RBC-Rto 12.5 11.5-15.0 % LAB 777-3([facility]) Platelet # Bld Auto 255 150-400 k/uL LAB 10644-5([facility]) PMV Bld Auto 9.4 9.0-12.7 fL LAB 770-8([facility]) Neutrophils/leuk NFr Bld Auto 77.9 % LAB 751-8([facility]) Neutrophils # Bld Auto 5.18 1.45-7.50 k/uL LAB 736-9([facility]) Lymphocytes/leuk NFr Bld Auto 17.4 % LAB 731-0([facility]) Lymphocytes # Bld Auto 1.16 1.00-4.00 k/uL LAB 5905-5(INC) Monocytes/leuk NFr Bld Auto 3.3 % LAB 742-7(INC) Monocytes # Bld Auto 0.22 <0.87 k/uL LAB 713-8(LOINC) Eosinophil/leuk NFr Bld Auto 0.5 % LAB 711-2(LOINC) Eosinophil # Bld Auto 0.03 <0.46 k/uL LAB 706-2(LOINC) Basophils/leuk NFr Bld Auto 0.6 % LAB 704-7(LOINC) Basophils # Bld Auto 0.04 <0.11 k/uL LAB 71798-1(LOINC) Imm Granulocytes/jose k NFr Bld Auto 0.3 % LAB 87195-8(LOINC) Imm Granulocytes # Bld Auto <0.03 <0.10 k/uL LAB 86866-9(LOINC) nRBC/100 WBC Bld-Rto 0.3 /100 WBC LAB 771-6([facility]) nRBC # Bld Auto 0.02 High <0.01 k/u L LAB 48679-1([facility]) Differential method Bld Auto Performed By: #### 67608-0 # ### [facility] CLIA [id number] [address] [place] [address] OF [facility] HBV SURFACE AG SER QL Collected: 2023 10:28 AM Status: F Source: [facility] Order Comment: Specimen Type : BLOOD SPECIMEN Ordering Facility: [facility] Address: [address] [place] [address] TYPE CODE TESTS RESULT OUT OF RANGE REFERENCE UNITS LAB 5195-3([facility]) HBV surface Ag Ser Ql Negative Negative Performed By: #### 5195-3, 1 6933-4, 48118-7 #### [facility] CLIA [id number] [address] [place] [address] OF [place] HBV SURFACE AB SER QL Collected: 2023 10:28 AM Status: F Source: [facility] Order Comment: Specimen Type : BLOOD SPECIMEN Ordering Facility: [facility] Address: [address] [place] [address] TYPE CODE TESTS RESULT OUT OF RANGE REFERENCE UNITS LAB 07033-4([facility]) HBV surface Ab Ser Ql Negative Result Comment: No serologic al evidence of immunity to Hepatitis B Virus. LAB 33608-6(LOINC) HBV surface Ab Ser-aCnc <8.00 mIU/mL Result Comment: <8 mIU/mL: N o serological evidence of immunity to Hepatitis B Virus. >/= 8 to <12 mIU/mL: No serological evidence of immunity to Hepatitis B Virus. >/= 12 mIU/mL: Consistent with serological evidence of immunity to Hepatitis B Virus. Performed By: #### 5195-3, 1 6933-4, 15620-9 #### [facility] CLIA [id number] [address] [place] [address] STATES OF [place] HBV CORE AB SER QL Collected: 4 10:28 AM Status: F Source: [facility] Comment: Specimen Type : BLOOD SPECIMEN Ordering Facility: [facility] Address: [address] [place] [address] TYPE CODE TESTS RESULT OUT OF RANGE REFERENCE UNITS LAB 25886-8([facility]) HBV core Ab Ser Ql Negative Negative Result Comment: No evidence of current or past infection with Hepatitis B virus. Should recent infection be suspected, repeat testing may be considered 3-4 weeks after this draw. Performed By: #### 5195-3, 1 6933-4, 97319-4 #### [facility] CLIA [id number] [address] [place] [address] HCV AB SER QL Collected: 4 10:28 AM Status: F Source: [facility] Comment: Specimen Type : BLOOD SPECIMEN Ordering Facility: [facility] Address: [address] [place] [address] TYPE CODE TESTS RESULT OUT OF RANGE REFERENCE UNITS LAB 64382-1([facility]) HCV Ab Ser Ql Negative Negative Result Comment: The result s uggests no evidence of active infection with Hepatitis C virus. Should recent infection be suspected, repeat testing may be considered 4- 6 weeks after this draw. Performed By: #### 36184-6 # ### [facility] CLIA [id number] [address] [place] [address] STATES OF [place] CNPN Observed: 05/25/2024 12:00 AM Status: COMPLETED Source: [facility] Telephone (NSCAMN) TIFFANIEJOYCE Pantoja ([id number]) 1955 F Date Time Provider Department 05/25/24 IZZY SCHMIDT [facility] During your visit today, we recorded the following information about you: Izzy Schmidt, RN 05/25/2024 12:24 PM Signed Called patient regarding appointment change. Informed patient that MD will be out of the office on the , and offered either the at 1pm or the at 1pm as the patient does not have MyChart to do virtual appointments. Patient stated her son would need to come with her, and he travels for work. She would reach back out to the office once she spoke with her son regarding an appointment decision. Izzy Schmidt RN, BSN Spinning Operator [facility] Allergies As of Date: 05/25/2024 Noted Allergy Reaction DEMERAL (MEPERIDINE) 04/01/2016 8 - GI Upset PERCOCET (OXYCODONE-ACETAMINOPHEN)04/01/2016 8 - GI Upset Date Reviewed: 05/04/2024 Reviewed by: Paulina Jay Ma, MA - Fully Assessed Prescriptions as of 05/25/2024 - ondansetron (ZOFRAN) 8 mg tablet Take 1 tablet by mouth every 8 hours as needed (For chemotherapy induced nausea and vomiting). - hydrOXYzine pamoate (VISTARIL) 25 mg capsule [...] once daily. 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 YES Patient is on cycle 1, week 2, day 8 of Lynparza for Breast Cancer. SYMPTOM ASSESSMENT Headache: No Visual Changes: No Dizziness: No Do you have any periods of confusion? No Mood changes: No Mouth or throat pain: No Appetite: no changes in appetite, appetite good. "I fill up faster" Taste changes: Yes, "certain things don't like I remember them tasting" Nausea: Yes after morning dose, not daily. Patient stated if she eats prior to taking the lynparza, this will help alleviate the nausea. Froilan pended to Dr. Albright. Advised patient to take PRN. Vomiting: Yes - 1 episode, cannot remember which day. Heartburn: No. Weight gain/loss: No Episodes of palpitations/chest discomfort/pressure/pain No Shortness of breath: No Cough: No Diarrhea: no Constipation: no Bladder/Urinary Changes: None Pain: No=0 (pain 0 on a scale of 0-10). Fever: No Chills: No Cold sensitivity: No Numbness/weakness: No- felt weak for a few days- improved. Patient stated she went for a bicycle ride and did yard work yesterday. Edema: No Skin changes: No Itching: No Yellowing of skin or eyes: No Musculoskeletal/joint changes/issues No Bleeding issues: No Activity Level: good Do you need to take naps? Patient has been laying down for an hour in the afternoons. Patient stated she is having a tooth extracted on 06/01/24. Patient was informed that she might have a small infection in a tooth that will be extracted. Patient advised to follow-up with her dentist to see if an antibiotic would be warranted. Discussed s/s of when to follow-up with her dentist. Patient informed this nurse will review her labs next week and discuss labs with Dr. Albright if needed, prior to her upcoming extraction. Does the patient need interventions or same day appointment:No ADDITIONAL FOLLOW UP: The next outreach call is due on: TBD and was scheduled will review labs next week. The following lab tests are due: 05/26/24 Verified patient is aware of next appointment in the cancer center: Yes. Verified patient verbalized how to correctly refill the oral agent prescription. Yes Does the patient have any financial difficulties affording this medication? No Patient verbalizes understanding of when to seek Medical Attention? YES Patient verbalizes understanding of after-hours and weekend phone number? YES Patient verbalized importance of medication compliance in taking the oral agent as prescribed. Patient instructed to call if unable to comply. VÍCTOR Magallon Paul A, DO 05/20/2024 3:28 PM Signed Thank you. The following approved medication requests have been transmitted electronically. Requested Prescriptions Signed Prescriptions Disp Refills ondansetron (ZOFRAN) 8 mg tablet 30 tablet 2 Sig: Take 1 tablet by mouth every 8 hours as needed (For chemotherapy induced nausea and vomiting). Authorizing Provider: JOHN ALBRIGHT DO Doup, Amber, RN 05/27/2024 9:51 AM Signed Called patient, informed her CBC was WNL. Patient is scheduled for dental extractions next Friday. Patient stated she took Zofran and got a bad headache and constipation after taking it so she does not want to take it anymore. Patient used a Fleet's enema and the constipation resolved. Patient stated she still has a queasy feeling that she is having a hard time getting rid of. Denies emesis. Patient stated she has been more tired lately, doesn't have as much get up and go as she did before and doesn't feel like doing extra activities like riding her bike or going for walks. Patient asked if she is going to remain at this current dose or if the dose will ever been reduced. Answered patients questions. Patient stated she is going to see how the next few weeks ago and will discuss possibly dose reducing at her next OV with Jami on 06/14/24. Compazine was going to be pended to Dr. Albright however it appears that there is a drug interaction between compazine and hydroxyzine. Patient stated she was prescribed hydroxyzine for sleep. Patient stated the hydroxyzine might also help with nausea and she was thinking about trying another dose in the morning. Patient instructed to contact her PCP to discuss this because the medication instructions state to take at bedtime, not twice daily. Patient stated she would be willing to hold hydroxyzine to see if compazine helps with nausea. This nurse will discuss with Dr. Albright. 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 - hydrOXYzine pamoate (VISTARIL) 25 mg capsule [...] once daily. 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 Encounter Status:Closed by JOHN ALBRIGHT on 05/20/24 SD Observed: 05/12/2024 12:00 AM Status: COMPLETED Source: [facility] Telephone (NELIDA) JOYCE ROBLES ([id number]) 1955 F Date Time Provider Department 05/12/24 TIFFANY RUIZ During your visit today, we recorded the following information about you: Tiffany Ruiz LISW 05/12/2024 11:31 AM Signed SOCIAL WORK FOLLOW UP NOTE: [facility] SW spoke with pt and discussed financial assistance options for medication assistance. SW answered all questions as able and encouraged pt to follow back up if assistance needed. No other needs identified. HUGO Benavides-S Allergies As of Date: 05/12/2024 Noted Allergy Reaction DEMERAL (MEPERIDINE) 04/01/2016 8 - GI Upset PERCOCET (OXYCODONE-ACETAMINOPHEN)04/01/2016 8 - GI Upset Date Reviewed: 05/04/2024 Reviewed by: Paulina Jay Ma, MA - Fully Assessed Reason for Visit: Social Work Services [507] Prescriptions as of 05/12/2024 - hydrOXYzine pamoate (VISTARIL) 25 mg capsule [...] once daily. 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 Please advise when she can start and follow-up plan. Thank you. VÍCTOR Magallon Amber, RN 05/11/2024 2:[address] Albright, patient can start once she receives. Patient started/will start taking lynparza on 05/13/24. PSS- atient will need a CBC in two weeks. CBC/CMP/CXR/OV in 1 month. Please contact patient to schedule. Thank you. VÍCTOR Magallon Stephanie 05/11/2024 4:40 PM Signed Left message for patient to return call. When she calls, please schedule: CBC in two weeks. 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 Problem List As Of Date 05/11/2024 Noted Resolved Abnormal mammogram [R92.8] 04/01/2016 Malignant neoplasm of upper-outer quadrant of l*04/08/2016 Fat necrosis [M79.89] 01/06/2017 BRCA2 gene mutation positive [Z15.01, Z15.09] 04/07/2024 History of ovarian cancer [Z85.43] 04/07/2024 Pulmonary embolus (HCC) [I26.99] 04/07/2024 Carcinoma of left breast metastatic to bone (HC*05/04/2024 Malignant pleural effusion [J91.0] 05/04/2024 Encounter Status:Closed by SELIN GARNICA on 05/12/24 PROGRESS Observed: 05/10/2024 7:15 AM Status: COMPLETED Source: [facility] HNO ID: [id number] Author: ELSA JACQUES RPh Service: ? Author Type: ? Type: Progress Notes Filed: 05/10/2024 15:35 Note Text: [facility] received prescription(s) for Orserdu from Dr. Albright's office. Benefits investigation was conducted, indicating that a prior authorization is required by patient's insurance plan with [facility]. Encounter will be updated once prior authorization has been submitted by [facility]. Komal Gutierrez CPhT [facility], Oncology P: / F: Addendum May 10, 2024 3:33 PM : Since Joyce qualified for a veronica with Lynparza, Orserdu is discontinued, Patient will be taking Lynparza. Confirmed by patient via telephone and by Dr. Albright's officevia CC charts. Elsa Jacques RPh Clinical Pharmacist Oncology [facility] P F Pool: P [facility] Pool #: [id number] PROGRESS Observed: 05/10/2024 7:15 AM Status: COMPLETED Source: [facility] HNO ID: [id number] Author: ELSA JACQUES RPh Service: ? Author Type: Pharmacist Type: Progress Notes Filed: 05/11/2024 11:51 Note Text: [facility] Discontinuation Assessment: Disease group: Oral Oncology/Hematology Medication: ELACESTRANT 86 MG TABLET Discontinue reason: Changing therapy Elsa Jacques RPh CNPN Observed: 05/07/2024 12:00 AM Status: COMPLETED Source: [facility] Telephone (NELIDA) JOYCE ROBLES ([id number]) 1955 F Date Time Provider Department 05/07/24 JIMMIE CREWS During your visit today, we recorded the following information about you: Jimmie Crews, RN 05/07/2024 3:59 PM Signed ORAL ANTI-CANCER [...] learning: None Physical limitation affecting learning: None WEINER ASSESSMENT: 1.) Verified that patient knows that [...] reinforcement of teaching topics as needed. 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 Jimmie Crews RN 05/07/2024 3:56 PM Signed [facility] Care Coordination FOLLOW-UP NOTE Patient identified by name and date of . YES Spoke to patient Summary: (Reason for follow-up) Patient stated she contacted her PCP because he prescribed Eliquis. PCP advised patient to call our office to see how long she should hold Eliquis prior to dental extractions. Patient will be seeing an oral surgeon who is at [facility]. . Care Coordination Plan: will follow-up with patient next week Jimmie Crews RN May 07, 2024 John Albright DO 05/09/2024 9:59 AM Signed Hold one day prior to extractions. Resume day after extractions if no bleeding issues. DO Mars Bautista Amber, RN 05/10/2024 8:45 AM Signed Patient informed of Dr. Albright's response, stated understanding. Jimmie Crews RN Allergies As of Date: 05/07/2024 Noted Allergy Reaction DEMERAL (MEPERIDINE) 04/01/2016 8 - GI Upset PERCOCET (OXYCODONE-ACETAMINOPHEN)04/01/2016 8 - GI Upset Date Reviewed: 05/04/2024 [...] effusion [J91.0] 05/04/2024 Encounter Status:Closed by JIMMIE CREWS on 05/10/24 SD Observed: 05/06/2024 12:00 AM Status: COMPLETED Source: [facility] Telephone (HEMAWS) JOYCE ROBLES ([id number]) 1955 F Date Time Provider Department 05/06/24 JOHN ALBRIGHT During your visit today, we recorded the following information about you: Paz Parker 05/06/2024 1:12 PM Signed Patient requested to speak with clinical regarding medications. She also stated she had not heard from [facility] regarding thoracentesis. Please advise. Renay Rinaldi LPN 05/06/2024 2:08 PM Addendum Left message on patient's identified VM asking her to contact the office. I had faxed the thoracentesis order to [facility] on 05/04/2024. I called to day to follow up and I faxed the order again. Renay Rinaldi LPN [facility] received orders and patient is scheduled for 05/10/2024. Renay Rinaldi LPN Juliane Alcantara 05/06/2024 5:01 PM Signed Pt called back, tried to reach nurse line but busy she would like called back in am thank you Shanon Bruno LPN 05/07/2024 8:30 AM Signed Returned call to pt, no answer, left VM stating that Renay had re-faxed the order to [facility]. Wanted to make sure with pt that [facility] got ahold of her with date and [...] updated [facility] notes- patient enrolled in a [email or web address] veronica. [facility] will contact patient on Friday [...] ALBRIGHT on: 05/09/2024 09:58 AM Modules accepted: Orders Jimmie Crews RN 05/10/2024 8:50 AM Addendum Patient informed of Dr. Albright's response, stated understanding. Patient will call the [facility] to discuss cost/set up shipment. Patient informed that if the lynparza is covered, we will cancel orserdu. VÍCTOR Magallon Melanie, LPN 05/10/2024 8:55 AM Addendum . Jimmie Crews RN 05/10/2024 10:29 AM Signed Patient called and requested that this nurse send [facility] the lab results from [facility] dated 03/13. Labs printed. Will fax to [facility]. Jimmie Crews RN Allergies As of Date: 05/06/2024 Noted Allergy Reaction DEMERAL (MEPERIDINE) 04/01/2016 8 - GI Upset PERCOCET (OXYCODONE-ACETAMINOPHEN)04/01/2016 8 - GI Upset Date Reviewed: 05/04/2024 Reviewed by: Paulina Jay Ma, MA - Fully Assessed Reason for Visit: Patient Question [1477] Order(s):elacestrant (ORSERDU) 345 mg tabletTake 1 tablet [...] bone (HC*05/04/2024 Malignant pleural effusion [J91.0] 05/04/2024 Prescriptions ordered this encounter Disp Refills Start End ELACESTRANT 345 MG TABLET 30 t* 5 05/09/2024 Class: [facility] Route: ORAL Sig: Take 1 tablet (345 mg) by mouth once daily. with a meal. Encounter Status:Closed by JIMMIE CREWS on 05/07/24 PROGRESS Observed: 05/04/2024 10:58 AM Status: COMPLETED Source: [facility] HNO ID: [id number] Author: JOHN ALBRIGHT DO Service: ? Author Type: Physician Type: [...] 2016. The pathology demonstrated a 2.5 cm ER/IA positive, HER2 negative tumor in the left breast with micro metastasis in 1 of 3 sentinel lymph nodes (0.8 mm). Overall grade was 3. Lymphovascular invasion was present. Closest margin was 2 mm from anterior margin. ER was positive greater than 95%. IA positive greater than 95% with moderate to strong staining intensity. HER2 was equivocal 1-2+; nonamplified by FISH testing. She declined adjuvant chemotherapy but received adjuvant radiation. Was started on AI with anastrozole beginning 10/2016. Was found to have germline BRCA2 mutation. She had declined prophylactic mastectomy and had been undergoing screening for breast cancer. Recently presented to [facility] on 03/12/2024 with a complaint of increasing shortness of breath. Prior to that she had been on a 10-day trip to [place]. CTA of the chest same day demonstrated [...] to 2 miles a day. [facility]. Son in [place]--helps with house and yard. Daughter in [place]. about 3 years ago. No chest pain. [...] Blood pressure 142/84, pulse 108, temperature 37.1 ?C (98.8 ?F), temperature source Temporal, weight 83.5 kg (184 [...] Most recent lab work from 03/13/2024 from [facility] reviewed. Hemoglobin 13.5 g/dL. White count 6900. Platelet count 171,000. Chemistry significant for serum creatinine 0.52 mg/dL. Calcium 8.7 mg/dL. Magnesium 1.7 mg/dL. Albumin low at 2.6 g/dL. Total protein 5.8 g/dL. Hepatocellular enzymes, alkaline phosphatase and total bilirubin normal. LDH 217. IMAGING: PET [facility]: PET scan demonstrated skeletal metastases including right iliac wing, left acetabulum, left sacral parris in the region of the fifth thoracic vertebra. There was also increased tracer concentration in the left hemithorax at the pleural interface fulfilling quantitative criteria for viable neoplasm. MRI brain [facility]: Small focal enhancing nodule measuring 4 mm along the posterior lateral aspect of the right occipital lobe with minimal surrounding edema. Genetic testing: BRCA2 mutation. 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 Elacestrant. 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 John Albright DO CNOVSP Observed: 05/04/2024 10:50 AM Status: COMPLETED Source: [facility] Visit (SP) Office (NELIDA) JOYCE ROBLES ([id number]) 1955 F Date Time Provider Department 05/04/24 [...] 2016. The pathology demonstrated a 2.5 cm ER/IA positive, HER2 negative tumor in the left breast with micro metastasis in 1 of 3 sentinel lymph nodes (0.8 mm). Overall grade was 3. Lymphovascular invasion was present. Closest margin was 2 mm from anterior margin. ER was positive greater than 95%. IA positive greater than 95% with moderate to strong staining intensity. HER2 was equivocal 1-2+; nonamplified by FISH testing. She declined adjuvant chemotherapy but received adjuvant radiation. Was started on AI with anastrozole beginning 10/2016. Was found to have germline BRCA2 mutation. She had declined prophylactic mastectomy and had been undergoing screening for breast cancer. Recently presented to [facility] on 03/12/2024 with a complaint of increasing shortness of breath. Prior to that she had been on a 10-day trip to [place]. CTA of the chest same day demonstrated [...] a day. Lives in town. Son in [place]--helps with house and yard. Daughter in [place]. about 3 years ago. No chest pain. [...] Blood pressure 142/84, pulse 108, temperature 37.1 ?C (98.8 ?F), temperature source Temporal, weight 83.5 kg (184 [...] Most recent lab work from 03/13/2024 from [facility] reviewed. Hemoglobin 13.5 g/dL. White count 6900. Platelet count 171,000. Chemistry significant for serum creatinine 0.52 mg/dL. Calcium 8.7 mg/dL. Magnesium 1.7 mg/dL. Albumin low at 2.6 g/dL. Total protein 5.8 g/dL. Hepatocellular enzymes, alkaline phosphatase and total bilirubin normal. LDH 217. IMAGING: PET [facility]: PET scan demonstrated skeletal metastases including right iliac wing, left acetabulum, left sacral parris in the region of the fifth thoracic vertebra. There was also increased tracer concentration in the left hemithorax at the pleural interface fulfilling quantitative criteria for viable neoplasm. MRI brain [facility]: Small focal enhancing nodule measuring 4 mm along the posterior lateral aspect of the right occipital lobe with minimal surrounding edema. Genetic testing: BRCA2 mutation. 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 Elacestrant. 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 John Albright DO Referring Provider: TEETEE MICHAUD [[id number]] Allergies As of Date: 05/04/2024 Noted Allergy Reaction DEMERAL (MEPERIDINE) 04/01/2016 8 - GI Upset PERCOCET (OXYCODONE-ACETAMINOPHEN)04/01/2016 8 - GI Upset Date Reviewed: 05/04/2024 Reviewed by: Paulina Jay Ma, MA - Fully Assessed Reason for Visit: Established Patient [175] Primary Visit Diagnosis:Malignant neoplasm of upper-outer quadrant of left breast in female, estrogen receptor positive (HCC) [C50.412, Z17.0] Other Visit Diagnoses:BRCA2 gene mutation positive [Z15.01, Z15.09] Malignant pleural effusion [J91.0] Other chronic pulmonary embolism without acute cor pulmonale (HCC) [I27.82] History of ovarian cancer [Z85.43] 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 Prescriptions as of 05/09/2024 - hydrOXYzine pamoate (VISTARIL) 25 mg capsule [...] Take 450 mg by mouth once daily. Medication notes this encounter OLAPARIB 150 MG TABLET >> Paulina Jay Ma, MA 05/04/2024 10:45 AM >> PAULINA JAY May 04, 2024 10:45 AM Hasn't started Problem List As Of Date 05/04/2024 Noted Resolved Abnormal mammogram [R92.8] 04/01/2016 Malignant neoplasm of upper-outer quadrant of l*04/08/2016 Fat necrosis [M79.89] 01/06/2017 BRCA2 gene mutation positive [Z15.01, Z15.09] 04/07/2024 History of ovarian cancer [Z85.43] 04/07/2024 Pulmonary embolus (HCC) [I26.99] 04/07/2024 Carcinoma of left breast metastatic to bone (HC*05/04/2024 Malignant pleural effusion [J91.0] 05/04/2024 Encounter Status:Closed by JOHN ALBRIGHT on 05/09/24 PROGRESS Observed: 05/04/2024 7:43 AM Status: COMPLETED Source: [facility] HNO ID: [id number] Author: ELSA JACQUES RPh Service: ? Author Type: Registered Nurse Type: Progress Notes Filed: 05/07/2024 14:19 Note Text: [facility] received prescription(s) for Lynparza from Dr. Albright's office. PA was approved with details listed below. Plan Name: [employer] / [employer] Plan Agent/Weiner: [id number] Phone/ PA reference number: [id number] Approval Dates: 04/20/24 - until further notice Prescriptions will now be processed through [facility] for determination of next steps. ANUEL Olson RN Addendum May 04, 2024 2:15 [...] this time. Patient will be referred to [employer] [place] ([facility]) Assistance Program. Note will be update once pt is contacted. Gayle Aliciaddendum May 07, 2024 2:16 PM : A veronica opened up and is currently available for Joyce. Pt's copay is $0 with veronica applied. Note will be updated once pt is contacted and delivery is confirmed. Elsa Jacques RPh PROGRESS Observed: 05/04/2024 7:43 AM Status: [facility]PLETED [id number] Author: ELSA JACQUES RPh Service: ? Author Type: Pharmacist Type: Progress Notes Filed: 05/11/2024 10:51 Note Text: [facility] received prescription(s) for Lynparza from Dr. Albright's office. PA was approved with details listed below. Plan Name: [employer] / [employer] Plan Agent/Weiner: [id number] Phone/ SUSY reference number: [id number] Approval Dates: 04/20/24 - until further notice Pt's copay is $0, HW veronica applied. Shipment has been arranged, and pt will receive medication(s) on 05/12/24. Pt has been instructed to follow-up with [...] breast metastatic to bone (HCC) 05/04/2024 John Albright DO No Malignant pleural effusion 05/04/2024 John Albright DO No BRCA2 gene mutation positive 04/07/2024 John Albright DO No History of ovarian cancer 04/07/2024 John Albright DO No Pulmonary embolus (HCC) 04/07/2024 John Albright DO No Fat necrosis 01/06/2017 Ryan Frank MD No Malignant neoplasm of upper-outer quadrant of left female breast (HCC) 04/08/2016 Ryan Frank MD No Abnormal mammogram 04/01/2016 Ryan Frank MD No Skin Diver Assessment Patient confirmed: Yes Med/dose confirmed: Yes Supplies needed: Welcome packet Estimated days supply on hand: 0 Copay amount: 0 Payment confirmed: Yes Delivery method: FedEx Signature required: Waived on patient request Delivery address: [address] [place] [id number] Delivery date: 05/12/24 Questions or concerns for the pharmacist?: Yes Patient questions/concerns: Medication cost, Co-pay/assistance programs, Medication dose, Medication route, Medication storage, Side effects, Delivery Did you have any side effects believed to be related to this medication, that resulted in hospitalization?: No [facility] CLINICAL ASSESSMENT - HEMATOLOGY ONCOLOGY [...] 05/07/2024 Treatment Plan Information: Diagnosis:metastatic breast , ER/IA positive, HER2 negative, Bone metastases -History of [...] mg-to-mg basis - Avoid grapefruit, grapefruit juice, [place] oranges, or [place] orange juice. Supportive Care: Mild emetogenic potential per Lexicomp Side Effects/Warnings: include but are not limited to bone marrow suppression, hypersensitivity, pulmonary toxicity (pneumonitis), secondary malignancies (MDS/AML), skin rash, hypomagnesemia, abdominal pain, constipation, diarrhea, nausea, stomatitis, arthralgia Monitoring: - CBC - Renal function Drug-Drug Interactions: None identifiedper Lexicomp on 05/07/24 Baseline: 03/13/2024(scanned docs from [facility]) - CBC: Hgb 13.5 Plt 171 , ANC 5.7 - estim EGFR 125 125 SCr 0.52 - HBV Panel: none-will recommend ECHO 04/16/24 :QTC Calculation (Bazett): 432 (P) Overdue for some routine immunizations, Patient has access to reminders. Est. Tx Plan Start Date: No information available Estimated Start Date Info: Sent a message to Dr Albright to order baseline labs.-may need to dose adjust kidney fxn Est. Estimated Treatment Duration: Continue until disease progression or unacceptable toxicity. Elsa Jacques RPh PROGRESS Observed: 05/04/2024 7:43 AM Status: COMPLETED Source: [facility] HNO ID: [id number] Author: ?, ?, ? Service: ? Author Type: ? Type: Progress Notes Filed: 05/04/2024 07:43 Note Text: [facility] received prescription(s) for Lynparza from Dr. Albright's office. Benefits investigation was conducted, indicating that a prior authorization is required by patient's insurance plan with [employer]. Encounter will be updated once prior authorization has been submitted by [facility]. Nunu Jacobs [facility] P: / F: PROGRESS Observed: 05/04/2024 7:43 AM Status: COMPLETED Source: [facility] HNO ID: [id number] Author: ?, ?, ? Service: ? Author Type: ? Type: Progress Notes Filed: 05/07/2024 13:45 Note Text: Pt was enrolled in a new $3500 veronica through [email or web address], effective 04/07/24 to 04/06/25. Nunu Jacobs [facility] P: / F: CNPN Observed: 05/03/2024 12:00 AM Status: COMPLETED Source: [facility] Telephone (HEMAWS) JOYCE ROBLES ([id number]) 1955 F Date Time Provider Department 05/03/24 JOHN ALBRIGHT During your visit today, we recorded the following information about you: John Albright, DO 05/03/2024 12:19 PM Signed [id number] testing revealed that she has an estrogen receptor mutation causing the cancer to be resistant to aromatase inhibitor therapy. Therefore we will have to change treatment from letrozole and ribociclib to olaparib. She has a BRCA2 mutation. Rx sent to specialty pharmacy. Also MRI brain revealed small metastasis in the right rear of the brain measuring 4 mm. I will email the gamma knife treatment team at [facility] about this. She may be hearing directly from them. I will be seeing her office visit for tomorrow and explain further. DO Amrita Bautista Melanie, LPN 05/03/2024 1:37 PM Signed MRI images requested from [facility]. ELA Patel Melanie, LPN 05/10/2024 9:34 AM Signed Attempted to contact our film library several times in the last 7 days, unable to get thorough. Faxed request sent. ELA Patel Melanie, LPN 05/11/2024 8:45 AM Signed MRI brain images have been imported. Renay Rinaldi LPN Allergies As of Date: 05/03/2024 Noted Allergy Reaction DEMERAL (MEPERIDINE) 04/01/2016 8 - GI Upset PERCOCET (OXYCODONE-ACETAMINOPHEN)04/01/2016 8 - GI Upset Date Reviewed: 04/07/2024 Reviewed by: Kieth Boland MA - Fully Assessed Reason for Visit: Results [95] Order(s):olaparib (LYNPARZA) 150 mg tabletTake 2 tablets (300mg) by mouth two times a day.Disp: 120 tabletRfl: 5 Prescriptions as of 05/11/2024 - hydrOXYzine pamoate (VISTARIL) 25 mg capsule [...] once daily. Problem List As Of Date 05/03/2024 Noted Resolved Abnormal mammogram [R92.8] 04/01/2016 Malignant neoplasm of upper-outer quadrant of l*04/08/2016 Fat necrosis [M79.89] 01/06/2017 BRCA2 gene mutation positive [Z15.01, Z15.09] 04/07/2024 History of ovarian cancer [Z85.43] 04/07/2024 Pulmonary embolus (HCC) [I26.99] 04/07/2024 Prescriptions ordered this encounter Disp Refills Start End OLAPARIB 150 MG TABLET 120 * 5 05/03/2024 Class: [facility] RX Route: ORAL Sig: Take 2 tablets (300mg) by mouth two times a day. Medications Discontinued During This Encounter Prescriptions - ribociclib (KISQALI) 600 mg/day (200 mg x 3) (Discontinued) Take 3 tablets (600mg) by mouth once daily for 21 days on, followed by 7 days off to complete a 28-day treatment cycle. Encounter Status:Closed by RENAY RINALDI on 05/11/24 MARYBELN Observed: 04/23/2024 12:00 AM Status: COMPLETED Source: [facility] Telephone (NELIDA) JOYCE ROBLES ([id number]) 1955 F Date Time Provider Department 04/23/24 JIMMIE CREWS During your visit today, we recorded the following information about you: Jimmie Crews RN 04/23/2024 2:09 PM Signed ORAL ANTI-CANCER [...] paperwork with Devyn. Call was transferred to [facility] to set up a time for patient to come into our office. Patient aware this nurse will review drug information once she knows she will receive. Patient was agreeable to this. 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 Author Type: Registered Nurse Type: Progress Notes Filed: 04/21/2024 17:24 Note Text: [facility] received prescription(s) for Kisqali from Dr. Albright's office. PA was approved with details listed below. Plan Name: [employer] Plan Agent/Weiner: [id number] Phone/ PA reference number: [id number] Approval Dates: 04/07/24 - until further notice Prescriptions will now be processed through [facility] for determination of next steps. ANUEL Olson RN Addendum April 21, 2024 3:56 [...] this time. Patient will be referred to [employer] Assistance Program. Note will be update once pt is contacted. Elsa Jacques RPh PROGRESS Observed: 2024 3:24 PM Status: COMPLETED Source: [facility] HNO ID: [id number] Author: ?, ?, ? Service: ? Author Type: ? Type: Progress Notes Filed: 2024 15:26 Note Text: [facility] received prescription(s) for Kisqali from Dr. Albright's office. Benefits investigation was conducted, indicating that a prior authorization is required by patient's insurance plan with [employer]. Encounter will be updated once prior authorization has been submitted by [facility]. Nunu Jacobs [facility], Oncology P: / F: SD Observed: 2024 12:00 AM Status: COMPLETED Source: [facility] Telephone (HEMAWS) JOYCE ROBLES ([id number]) 1955 F Date Time Provider Department 04/20/24 JOHN ALBRIGHT During your visit today, we recorded the following information about you: Paz Parker 2024 10:08 AM Signed Yoel from [facility] called requesting demographics, new order for pet-changing from initial to subsequent and copy of pathology from 03/2024. Please fax to [phone] Joyce Mejía LPN 2024 10:52 AM Signed Information all faxed. Did question why new order? And instructed them to call, given our direct line. ELA Garcia Pamela S, LPN 2024 11:32 AM Signed New order pended, Spoke with Lizet from [facility] , since pt. Has had previous treatment the PET is always subsequent , not initial. New order pended . Dr. Albright please sign new pended order so can be faxed to [facility] [phone] ELA Garcia Paul A, DO 2024 1:50 PM Signed I signed the order for the new PET scan and sent the prescription for Kisqali. DO Damion Bautista Kara, LPN 2024 2:12 PM Signed Faxed order. 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 Author Type: Registered Nurse Type: Progress Notes Filed: 04/16/2024 15:15 Note Text: EKG performed per protocol on Joyce Robles on April 16, 2024 patient tolerated well. Copy was placed in Dr Albright's office mailbox Pati Simmons RN CNPN Observed: 04/14/2024 12:00 AM Status: COMPLETED Source: [facility] Telephone (NELIDA) JOYCE ROBLES ([id number]) 1955 F Date Time Provider Department 04/14/24 JIMMIE CREWS During your visit today, we recorded the following information about you: Jimmie Crews RN 04/14/2024 4:05 PM Signed Per OV notes: -Rx Kisqali after EKG. Verzenio if QT still prolonged. Are we repeating an EKG? In huddle last week, Kisqali was discussed but this has not been ordered. Thank you. VÍCTOR Magallon Paul A, DO 04/15/2024 10:14 AM Signed Sorry, yes repeat EKG. her QTc was significantly prolonged on an EKG done 03/12/2024 at [facility] when she was admitted for PE. DO Kd Bautista Pamela LolaELA 04/15/2024 10:22 AM Signed Left detailed message on identified voicemail , need repeat EKG, PSS please reach out to pt. To get scheduled. Joyce Lola ELA Mejía Stephanie 04/15/2024 11:31 AM Signed Left message for patient to return call. When she calls, please schedule an EKG on the port schedule. Ivy Darden 04/16/2024 9:24 AM Signed Patient returned call and scheduled EKG today. 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] Order(s):ECG COMPLETE [ECG01] Order #: [id number] FUTURE Prescriptions as of 04/16/2024 - apixaban [...] (HCC) [I26.99] 04/07/2024 Encounter Status:Closed by RENAY RINALDI on 04/16/24 ALLERGIES DATE TYPE / CODE NAME / CODE REACTION SEVERITY SOURCE 07/23/2024 DRUG INGREDI/792808 003(SNOMED CT) ONDANSETRON OTHER: SEE C [facility] 04/01/2016 DRUG INGREDI/[id number] 003(SNOMED CT) MEPERIDINE GI UPSET [facility] 04/01/2016 DRUG/[id number] (SNOMED CT) OXYCODONE-ACETAMINOP HEN GI UPSET [facility] ENCOUNTERS ADMIT/DISCHARGE ACCOUNT NUMBER ADMITTING ENCOUNTER CLASS LOCATION SOURCE 04/04/2025/04/04/20 [id number] [facility]WOL[facility] 04/04/2025/04/04/20 [id number] [facility] ing:NSCA [facility] 03/28/2025 [id number] [facility] ing:WOMR [facility] 03/07/2025/03/07/20 [id number] [facility] ing:WOL2 [facility] 02/14/2025/02/15/20 [id number] [facility] ing:RADT [facility] 02/08/2025/02/09/20 [id number] [facility] ing:WOKENTRELL [facility] 02/08/2025/02/09/20 [id number] [facility] 02/02/2025/02/03/20 25 [id number] SWAPNIL GONZALES [facility]RADT [facility] 02/02/2025 [id number] [facility]CTCA [facility] 02/02/2025 [id number] [facility]MRCA [facility] 02/02/2025/02/03/20 25 [id number] [facility]GKCA [facility] 02/02/2025/02/03/20 25 [id number] SWAPNIL GONZALES [facility]RADT [facility] 01/24/2025/01/25/20 25 [id number] [facility]NSCA [facility] 01/20/2025 [id number] [facility]/20/2025 [id number] [facility] 01/18/2025/01/19/20 25 [id number] [facility] 01/18/[facility]25/01/19/20 25 [id number] [facility] [place] [address] 01/10/2025/01/11/20 25 [id number] [facility] 01/07/2025 [id number] [facility] 12/20/2024/12/21/19 25 [id number] [facility] [place] [address] 11/23/2024/11/24/19 25 [id number] [facility]VALENTINE [facility] 11/22/2024/11/23/19 25 [id number] [facility] 11/22/2024/11/23/19 25 [id number] [facility]WOL2 [facility] 10/30/2024/10/31/19 25 [id number] [facility]NSCA [facility] 10/18/2024/10/19/19 25 [id number] [facility]WOHE [facility] 10/18/2024/10/19/19 25 [id number] [facility]WOL2 [facility] 10/14/2024/10/15/19 25 [id number] [facility]WOR2 [facility] 10/07/2024/10/08/19 25 [id number] [facility]WO[facility] 10/07/2024/10/08/19 25 [id number] [facility]WOL2 [facility] 10/07/2024/10/08/19 25 [id number] [facility]WOMR [facility] 09/28/2024/09/29/19 25 [id number] [facility]WOHE [facility] 09/21/2024/09/22/19 25 [id number] [facility] 09/15/2024/09/16/19 25 [id number] [facility]WOHE [facility] 09/15/2024/09/16/19 25 [id number] [facility] 08/24/2024/08/24/19 25 [id number] [facility]WOHE [facility] 08/19/2024/08/19/19 25 [id number] [facility]WOHE [facility] 08/19/2024/08/19/19 25 [id number] [facility] 08/16/2024/08/16/19 25 [id number] [facility]WOCA [facility] 08/12/2024/08/12/19 25 [id number] [facility]WO[facility] 08/12/2024/08/12/19 25 [id number] [facility] 08/11/2024/08/11/19 25 [id number] [facility] 08/11/2024/08/11/19 25 [id number] [facility] 08/11/2024/08/11/19 25 [id number] [facility] 08/11/2024/08/11/19 25 [id number] [facility] 08/05/2024/08/05/19 25 [id number] [facility]NSBTMA [facility] 08/05/2024 [id number] [facility] 07/30/2024/07/30/19 25 [id number] [facility] 07/30/2024/07/30/19 25 [id number] [facility] 07/23/2024/07/23/19 25 [id number] [facility] 07/21/2024/07/21/19 25 [id number] [facility] 07/20/2024/07/20/19 25 [id number] [facility] 07/20/2024/07/20/19 25 [id number] [facility] 07/20/2024/07/20/19 25 [id number] [facility] 06/16/2024/06/16/20 24 [id number] [facility]RADT [facility] 06/16/2024/06/16/20 24 [id number] [facility]CTCA [facility] 06/16/2024/06/16/20 24 [id number] [facility]MRCA [facility] 06/16/2024/06/16/20 24 [id number] [facility]GKCA [facility] 06/16/2024/06/16/20 24 [id number] [facility]RAD[facility] 06/14/2024/06/14/20 24 [id number] [facility] 06/14/2024/06/14/20 24 [id number] [facility] 06/14/2024/06/14/20 24 [id number] [facility] 06/07/2024/06/07/20 24 [id number] [facility]NSCA [facility] 06/04/2024/06/04/20 24 [id number] [facility]RAD[facility] 05/26/2024/05/26/20 24 [id number] [facility] 05/04/2024/05/04/20 24 [id number] [facility] 04/16/2024/04/16/20 24 [id number] [facility] PAYERS ENCOUNTER [employer]ER [employer]CR[employer]ER [employer] 04/04/2025 Primary Insuranc e:MEDICARE A AND BPolicy Number: [id number] Date:1207-20-91Syfo Name:Carla ROBLESB: [id number] [place] [address] [facility] 04/04/2025 Secondary Insura nce:[facility] AARP SUPPLEMENTPolicy Number: [id number] Date:5344-69-05Sako Name:Josie ROBLESB: [id number] [place], [place] [address] [place] [address] 04/04/2025 Primary Insuranc e:MEDICARE A AND BPolicy Number: [id number] Date:6192-94-21Razo Name:Carla ROBLESB: [id number] [place], [place] [address] [place] [address] 04/04/2025 Secondary Insura nce:[facility] AARP SUPPLEMENTPolicy Number: [id number] Date:8874-67-64Wsvm Name:Josie ROBLESB: [id number] [place], [place] [address] [place] [address] 03/28/2025 Primary Insuranc e:MEDICARE A AND BPolicy Number: [id number] Date:4650-44-49Ataj Name:Carla ROBLESB: [id number] [place], [place] [address] [place] [address] 03/28/2025 Secondary Insura nce:[facility] AARP SUPPLEMENTPolicy Number: [id number] Date:7001-88-00Pcvd Name:Josie ROBLESB: [id number] [place], [place] [address] [place] [address] 03/07/2025 Primary Insuranc e:MEDICARE A AND BPolicy Number: [id number] Date:2752-18-18Vtwq Name:Carla ROBLESB: [id number] [place], [place] [address] [place] [address] 03/07/2025 Secondary Insura nce:[facility] AARP SUPPLEMENTPolicy Number: [id number] Date:4504-24-96Gnvf Name:Josie MACB: [id number] [place], [place] [address] [place] [address] 02/14/2025 Primary Insuranc e:MEDICARE A AND BPolicy Number: [id number] Date:9189-88-06Oznh Name:Carla ROBLESB: [id number] [place], [place] [address] [place] [address] 02/14/2025 Secondary Insura nce:[facility] AARP SUPPLEMENTPolicy Number: [id number] Date:9847-75-00Gmqe Name:Josie MACB: [id number] [place], [place] [address] [place] [address] 02/08/2025 Primary Insuranc e:MEDICARE A AND BPolicy Number: [id number] Date:0117-36-63Hanf Name:Carla ROBLESB: [id number] [place], [place] [address] [place] [address] 02/08/2025 Secondary Insura nce:[facility] AARP SUPPLEMENTPolicy Number: [id number] Date:3935-74-21Ssiz Name:Josie ROBLESB: [id number] [place], [place] [address] [place] [address] 02/08/2025 Primary Insuranc e:MEDICARE A AND BPolicy Number: [id number] Date:5893-16-77Oruj Name:Calra ROBLESB: [id number] [place], [place] [address] [place] [address] 02/08/2025 Secondary Insura nce:[facility] AARP SUPPLEMENTPolicy Number: [id number] Date:9702-11-90Txhu Name:Josie ROBLESB: [id number] [place] [address] [facility] 02/02/2025 Primary Insuranc e:MEDICARE A AND BPolicy Number: [id number] Date:2429-67-72Twvg Name:Carla COOK Kit JOHNSON: [id number] [place] [address] [facility] 02/02/2025 Secondary Insura nce:[facility] AARP SUPPLEMENTPolicy Number: [id number] Date:2919-86-40Tkih Name:Josie COOK Kit MACB: [id number] [place], [place] [address] [place] [address] 02/02/2025 Primary Insuranc e:MEDICARE A AND BPolicy Number: [id number] Date:5198-03-37Hzaw Name:Carla JOYCE Kit MACB: [id number] [place], [place] [address] [place] [address] 02/02/2025 Secondary Insura nce:[facility] AARP SUPPLEMENTPolicy Number: [id number] Date:4244-85-81Zgmv Name:Josie JOYCE JOHNSON: [id number] [place], [place] [address] [place] [address] 02/02/2025 Primary Insuranc e:MEDICARE A AND BPolicy Number: [id number] Date:4257-26-68Hndc Name:Carla COOK Kit JOHNSON: [id number] [place], [place] [address] [place] [address] 02/02/2025 Secondary Insura nce:[facility] AARP SUPPLEMENTPolicy Number: [id number] Date:4863-93-37Gafg Name:Josie JOYCE Kit JOHNSON: [id number] [place], [place] [address] [place] [address] 02/02/2025 Primary Insuranc e:MEDICARE A AND BPolicy Number: [id number] Date:1968-25-96Aemo Name:Carla JOHNSON: [id number] [place] [address] [facility] 02/02/2025 Secondary Insura nce:[facility] AARP SUPPLEMENTPolicy Number: [id number] Date:7805-16-97Yhod Name:Josie ROBLESB: [id number] [place] [address] [facility] 02/02/2025 Primary Insuranc e:MEDICARE A AND BPolicy Number: [id number] Date:1083-59-77Duck Name:Carla RBOLESB: [id number] [place], [place] [address] [place] [address] 02/02/2025 Secondary Insura nce:[facility] AARP SUPPLEMENTPolicy Number: [id number] Date:3733-88-94Hnop Name:Josie ROBLESB: [id number] [place], [place] [address] [place] [address] 01/24/2025 Primary Insuranc e:MEDICARE A AND BPolicy Number: [id number] Date:4633-39-54Arnq Name:Carla ROBLESB: [id number] [place] [address] [facility] 01/24/2025 Secondary Insura nce:[facility] AARP SUPPLEMENTPolicy Number: [id number] Date:4176-89-56Nozt Name:Josie ROBLESB: [id number] [place] [address] [facility] 01/20/2025 Primary Insuranc e:MEDICARE A AND BPolicy Number: [id number] Date:2623-97-14Hsou Name:Carla ROBLESB: [id number] [place] [address] [facility] 01/20/2025 Secondary Insura nce:[facility] AARP SUPPLEMENTPolicy Number: [id number] Date:6530-69-58Wcfc Name:Josie ROBLESB: [id number] [place] [address] [facility] 01/20/2025 Primary Insuranc e:MEDICARE A AND BPolicy Number: [id number] Date:2159-46-75Kmbn Name:Carla ROBLESB: [id number] [place], [place] [address] [place] [address] 01/20/2025 Secondary Insura nce:[facility] AARP SUPPLEMENTPolicy Number: [id number] Date:0495-84-11Foeh Name:Josie ROBLESB: [id number] [place], [place] [address] [place] [address] 01/18/2025 Primary Insuranc e:MEDICARE A AND BPolicy Number: [id number] Date:6613-51-12Vdmw Name:Carla ROBLESB: [id number] [place], [place] [address] [place] [address] 01/18/2025 Secondary Insura nce:[facility] AARP SUPPLEMENTPolicy Number: [id number] Date:9960-18-65Rozf Name:Josie ROBLESB: [id number] [place], [place] [address] [place] [address] 01/18/2025 Primary Insuranc e:MEDICARE A AND BPolicy Number: [id number] Date:1879-77-37Jggc Name:Carla ROBLESDOB: [id number] [place], [place] [address] [place] [address] 01/18/2025 Secondary Insura nce:[facility] AARP SUPPLEMENTPolicy Number: [id number] Date:8060-49-23Kshx Name:Josie ROBLESB: [id number] [place], [place] [address] [place] [address] 01/10/2025 Primary Insuranc e:MEDICARE A AND BPolicy Number: [id number] Date:9359-62-22Kvkx Name:Carla CUNHACAMMY: [id number] [place], [place] [address] [place] [address] 01/10/2025 Secondary Insura nce:[facility] AARP SUPPLEMENTPolicy Number: [id number] Date:7311-29-22Lfhz Name:Josie Pantoja ESTEFANIAB: [id number] [place], [place] [address] [place] [address] 01/07/2025 Primary Insuranc e:MEDICARE A AND BPolicy Number: [id number] Date:9417-12-49Wxzg Name:Carla Pantoja ESTEFANIAB: [id number] [place], [place] [address] [place] [address] 01/07/2025 Secondary Insura nce:[facility] AARP SUPPLEMENTPolicy Number: [id number] Date:4561-84-21Tjcb Name:Josie Pantoja ESTEFANIAB: [id number] [place], [place] [address] [place] [address] 12/20/2024 Primary Insuranc e:MEDICARE A AND BPolicy Number: [id number] Date:0816-43-78Vzjx Name:Crala Pantoja ESTEFANIAB: [id number] [place], [place] [address] [place] [address] 12/20/2024 Secondary Insura nce:[facility] AARP SUPPLEMENTPolicy Number: [id number] Date:3622-07-38Mccp Name:Josie Pantoja ESTEFANIAB: [id number] [place], [place] [address] [place] [address] 11/23/2024 Primary Insuranc e:MEDICARE A AND BPolicy Number: [id number] Date:1028-17-88Reay Name:Carla Pantoja ESTEFANIAB: [id number] [place], [place] [address] [place] [address] 11/23/2024 Secondary Insura nce:[facility] AARP SUPPLEMENTPolicy Number: [id number] Date:5069-60-36Rsoe Name:Josie ROBLESB: [id number] [place], [place] [address] [place] [address] 11/22/2024 Primary Insuranc e:MEDICARE A AND BPolicy Number: [id number] Date:1556-99-15Onib Name:Carla Pantoja ESTEFANIAB: [id number] [place], [place] [address] [place] [address] 11/22/2024 Secondary Insura nce:[facility] AARP SUPPLEMENTPolicy Number: [id number] Date:9569-32-51Vvdk Name:Josie Pantoja ESTEFANIAB: [id number] [place], [place] [address] [place] [address] 11/22/2024 Primary Insuranc e:MEDICARE A AND BPolicy Number: [id number] Date:5878-83-64Andc Name:Carla CUNHACAMMY: [id number] [place], [place] [address] [place] [address] 11/22/2024 Secondary Insura nce:[facility] AARP SUPPLEMENTPolicy Number: [id number] Date:1409-99-37Aydm Name:Josie ROBLESB: [id number] [place], [place] [address] [place] [address] 10/30/2024 Primary Insuranc e:MEDICARE A AND BPolicy Number: [id number] Date:3561-16-34Nqou Name:Carla CUNHAАНДРЕЙB: [id number] [place], [place] [address] [place] [address] 10/30/2024 Secondary Insura nce:[facility] AARP SUPPLEMENTPolicy Number: [id number] Date:9071-14-26Qfka Name:Josie ROBLESB: [id number] [place], [place] [address] [place] [address] 10/18/2024 Primary Insuranc e:MEDICARE A AND BPolicy Number: [id number] Date:2675-81-68Ncdi Name:Carla ROBLESB: [id number] [place], [place] [address] [place] [address] 10/18/2024 Secondary Insura nce:[facility] AARP SUPPLEMENTPolicy Number: [id number] Date:0594-11-00Jwbd Name:Josie ROBLESB: [id number] [place], [place] [address] [place] [address] 10/18/2024 Primary Insuranc e:MEDICARE A AND BPolicy Number: [id number] Date:4929-39-07Vaor Name:Carla ROBLESB: [id number] [place], [place] [address] [place] [address] 10/18/2024 Secondary Insura nce:[facility] AARP SUPPLEMENTPolicy Number: [id number] Date:6818-16-90Zegq Name:Josie ROBLESB: [id number] [place], [place] [address] [place] [address] 10/14/2024 Primary Insuranc e:MEDICARE A AND BPolicy Number: [id number] Date:5427-74-24Eadd Name:Carla ROBLESB: [id number] [place], [place] [address] [place] [address] 10/14/2024 Secondary Insura nce:[facility] AARP SUPPLEMENTPolicy Number: [id number] Date:4506-38-60Xiqj Name:Josie CUNHAАНДРЕЙB: [id number] [place], [place] [address] [place] [address] 10/07/2024 Primary Insuranc e:MEDICARE A AND BPolicy Number: [id number] Date:5108-32-84Ygke Name:Carla ROBLESB: [id number] [place], [place] [address] [place] [address] 10/07/2024 Secondary Insura nce:[facility] AARP SUPPLEMENTPolicy Number: [id number] Date:9824-02-32Rqfj Name:Josie ROBLESB: [id number] [place], [place] [address] [place] [address] 10/07/2024 Primary Insuranc e:MEDICARE A AND BPolicy Number: [id number] Date:6375-12-74Kwzq Name:Carla ROBLESB: [id number] [place], [place] [address] [place] [address] 10/07/2024 Secondary Insura nce:[facility] AARP SUPPLEMENTPolicy Number: [id number] Date:2638-87-34Vpwa Name:Josie Pantoja ESTEFANIAB: [id number] [place], [place] [address] [place] [address] 10/07/2024 Primary Insuranc e:MEDICARE A AND BPolicy Number: [id number] Date:9912-91-15Vdqj Name:Carla Pantoja ESTEFANIAB: [id number] [place], [place] [address] [place] [address] 10/07/2024 Secondary Insura nce:[facility] AARP SUPPLEMENTPolicy Number: [id number] Date:9339-85-18Fxki Name:Josie Pantoja ESTEFANIAB: [id number] [place], [place] [address] [place] [address] 09/28/2024 Primary Insuranc e:MEDICARE A AND BPolicy Number: [id number] Date:0341-19-64Mmor Name:Carla Pantoja ESTEFANIAB: [id number] [place], [place] [address] [place] [address] 09/28/2024 Secondary Insura nce:[facility] AARP SUPPLEMENTPolicy Number: [id number] Date:8357-81-85Dgpf Name:Josie Pantoja ESTEFANIAB: [id number] [place], [place] [address] [place] [address] 09/21/2024 Primary Insuranc e:MEDICARE A AND BPolicy Number: [id number] Date:9456-11-85Gqxp Name:Carla Pantoja ESTEFANIAB: [id number] [place], [place] [address] [place] [address] 09/21/2024 Secondary Insura nce:[facility] AARP SUPPLEMENTPolicy Number: [id number] Date:1907-10-91Gmer Name:Josie Pantoja ESTEFANIAB: [id number] [place], [place] [address] [place] [address] 09/15/2024 Primary Insuranc e:MEDICARE A AND BPolicy Number: [id number] Date:4005-68-07Livw Name:Carla COOK Kit MACB: [id number] [place], [place] [address] [place] [address] 09/15/2024 Secondary Insura nce:[facility] AARP SUPPLEMENTPolicy Number: [id number] Date:6679-13-16Jnjo Name:Josie Pantoja ESTEFANIAB: [id number] [place], [place] [address] [place] [address] 09/15/2024 Primary Insuranc e:MEDICARE A AND BPolicy Number: [id number] Date:5479-32-59Osrg Name:Carla Pantoja ESTEFANIAB: [id number] [place], [place] [address] [place] [address] 09/15/2024 Secondary Insura nce:[facility] AARP SUPPLEMENTPolicy Number: [id number] Date:1952-14-78Stkj Name:Josie ROBLESB: [id number] [place], [place] [address] [place] [address] 08/24/2024 Primary Insuranc e:MEDICARE A AND BPolicy Number: [id number] Date:7596-60-06Xjwn Name:Carla ROBLESB: [id number] [place], [place] [address] [place] [address] 08/24/2024 Secondary Insura nce:[facility] AARP SUPPLEMENTPolicy Number: [id number] Date:2392-92-57Bkls Name:Josie ROBLESB: [id number] [place], [place] [address] [place] [address] 08/19/2024 Primary Insuranc e:MEDICARE A AND BPolicy Number: [id number] Date:3776-59-24Iogk Name:Carla Pantoja ESTEFANIAB: [id number] [place], [place] [address] [place] [address] 08/19/2024 Secondary Insura nce:[facility] AARP SUPPLEMENTPolicy Number: [id number] Date:1821-43-46Sdws Name:Josie ROBLESB: [id number] [place], [place] [address] [place] [address] 08/19/2024 Primary Insuranc e:MEDICARE A AND BPolicy Number: [id number] Date:7802-17-45Eatn Name:Carla ROBLESB: [id number] [place], [place] [address] [place] [address] 08/19/2024 Secondary Insura nce:[facility] AARP SUPPLEMENTPolicy Number: [id number] Date:1742-47-40Uwhk Name:Josie ROBLESB: [id number] [place], [place] [address] [place] [address] 08/16/2024 Primary Insuranc e:MEDICARE A AND BPolicy Number: [id number] Date:2274-72-61Cybk Name:Carla ROBLESDOB: [id number] [place], [place] [address] [place] [address] 08/16/2024 Secondary Insura nce:[facility] AARP SUPPLEMENTPolicy Number: [id number] Date:7481-90-74Verb Name:Josie ROBLESB: [id number] [place], [place] [address] [place] [address] 08/12/2024 Primary Insuranc e:MEDICARE A AND BPolicy Number: [id number] Date:5632-66-42Cqai Name:Carla ROBLESB: [id number] [place], [place] [address] [place] [address] 08/12/2024 Secondary Insura nce:[facility] AARP SUPPLEMENTPolicy Number: [id number] Date:4545-23-96Ilff Name:Josie ROBLESB: [id number] [place], [place] [address] [place] [address] 08/11/2024 Primary Insuranc e:MEDICARE A AND BPolicy Number: [id number] Date:5146-70-44Wogb Name:Carla ROBLESB: [id number] [place], [place] [address] [place] [address] 08/11/2024 Secondary Insura nce:[facility] AARP SUPPLEMENTPolicy Number: [id number] Date:7488-13-27Wauw Name:Josie ROBLESDOB: [id number] [place], [place] [address] [place] [address] 08/11/2024 Primary Insuranc e:MEDICARE A AND BPolicy Number: [id number] Date:4002-46-65Ikxw Name:Carla ROBLESDOB: [id number] [place], [place] [address] [place] [address] 08/11/2024 Secondary Insura nce:[facility] AARP SUPPLEMENTPolicy Number: [id number] Date:8243-70-18Epqr Name:Josie Pantoja ESTEFANIAB: [id number] [place], [place] [address] [place] [address] 08/11/2024 Primary Insuranc e:MEDICARE A AND BPolicy Number: [id number] Date:4632-96-03Rehu Name:Carla Pantoja ESTEFANIAB: [id number] [place], [place] [address] [place] [address] 08/11/2024 Secondary Insura nce:[facility] AARP SUPPLEMENTPolicy Number: [id number] Date:6588-28-34Tvdp Name:Josie Pantoja ESTEFANIAB: [id number] [place], [place] [address] [place] [address] 08/11/2024 Primary Insuranc e:MEDICARE A AND BPolicy Number: [id number] Date:4596-24-29Ogdu Name:Carla Pantoja ESTEFANIAB: [id number] [place], [place] [address] [place] [address] 08/11/2024 Secondary Insura nce:[facility] AARP SUPPLEMENTPolicy Number: [id number] Date:2793-11-73Wtmc Name:Josie Pantoja ESTEFANIAB: [id number] [place], [place] [address] [place] [address] 08/05/2024 Primary Insuranc e:MEDICARE A AND BPolicy Number: [id number] Date:1395-40-65Sdho Name:Carla Pantoja ESTEFANIAB: [id number] [place], [place] [address] [place] [address] 08/05/2024 Secondary Insura nce:[facility] AARP SUPPLEMENTPolicy Number: [id number] Date:4395-70-28Tanv Name:Josie Pantoja ESTEFANIAB: [id number] [place], [place] [address] [place] [address] 08/05/2024 Primary Insuranc e:MEDICARE A AND BPolicy Number: [id number] Date:2156-36-90Mwyq Name:Carla Pantoja ESTEFANIAB: [id number] [place], [place] [address] [place] [address] 08/05/2024 Secondary Insura nce:[facility] AARP SUPPLEMENTPolicy Number: [id number] Date:3164-30-05Ywyt Name:Josie JOYCE Kit MACB: [id number] [place], [place] [address] [place] [address] 07/30/2024 Primary Insuranc e:MEDICARE A AND BPolicy Number: [id number] Date:9849-57-78Bpht Name:Carla COOK Kit MACB: [id number] [place], [place] [address] [place] [address] 07/30/2024 Secondary Insura nce:[facility] AARP SUPPLEMENTPolicy Number: [id number] Date:2345-56-61Dpyo Name:Josie JOYCE Kit JOHNSON: [id number] [place], [place] [address] [place] [address] 07/30/2024 Primary Insuranc e:MEDICARE A AND BPolicy Number: [id number] Date:6929-94-65Gqiu Name:Carla COOK Kit MACB: [id number] [place], [place] [address] [place] [address] 07/30/2024 Secondary Insura nce:[facility] AARP SUPPLEMENTPolicy Number: [id number] Date:0887-71-54Pqzh Name:Josie JOYCE Kit MACB: [id number] [place], [place] [address] [place] [address] 07/23/2024 Primary Insuranc e:MEDICARE A AND BPolicy Number: [id number] Date:1954Kjkx Name:Carla ROBLESB: [id number] [place], [place] [address] [place] [address] 07/23/2024 Secondary Insura nce:[facility] AARP SUPPLEMENTPolicy Number: [id number] Date:0745-06-69Yike Name:Josie ROBLESB: [id number] [place], [place] [address] [place] [address] 07/21/2024 Primary Insuranc e:MEDICARE A AND BPolicy Number: [id number] Date:9029-88-50Kfij Name:Carla ROBLESB: [id number] [place], [place] [address] [place] [address] 07/21/2024 Secondary Insura nce:[facility] AARP SUPPLEMENTPolicy Number: [id number] Date:1193-00-41Yiuz Name:Josie ROBLESB: [id number] [place], [place] [address] [place] [address] 07/20/2024 Primary Insuranc e:MEDICARE A AND BPolicy Number: [id number] Date:2575-44-35Pvsm Name:Carla ROBLESB: [id number] [place], [place] [address] [place] [address] 07/20/2024 Secondary Insura nce:[facility] AARP SUPPLEMENTPolicy Number: [id number] Date:4396-68-87Fmjr Name:Josie ROBLESB: [id number] [place], [place] [address] [place] [address] 07/20/2024 Primary Insuranc e:MEDICARE A AND BPolicy Number: [id number] Date:9274-41-03Ltby Name:Carla ROBLESB: [id number] [place], [place] [address] [place] [address] 07/20/2024 Secondary Insura nce:[facility] AARP SUPPLEMENTPolicy Number: [id number] Date:7320-00-83Lnvz Name:Josie RBOLESB: [id number] [place], [place] [address] [place] [address] 07/20/2024 Primary Insuranc e:MEDICARE A AND BPolicy Number: [id number] Date:0254-39-37Efdo Name:Carla ROBLESB: [id number] [place] [address] [place] [address] 07/20/2024 Secondary Insura nce:[facility] AARP SUPPLEMENTPolicy Number: [id number] Date:2253-22-91Ydzm Name:Josie ROBLESB: [id number] [place] [address] [place] [address] 06/16/2024 Primary Insuranc e:MEDICARE A AND BPolicy Number: [id number] Date:2520-91-25Lhty Name:Carla ROBLESB: [id number] [place] [address] [place] [address] 06/16/2024 Secondary Insura nce:[facility] AARP SUPPLEMENTPolicy Number: [id number] Date:9665-48-09Nmhc Name:Josie ROBLESB: [id number] [place] [address] [place] [address] 06/16/2024 Primary Insuranc e:MEDICARE A AND BPolicy Number: [id number] Date:8730-50-15Ruvq Name:Carla ROBLESB: [id number] [place], [place] [address] [place] [address] 06/16/2024 Secondary Insura nce:[facility] AARP SUPPLEMENTPolicy Number: [id number] Date:1429-80-86Xort Name:Josie ORBLESB: [id number] [place], [place] [address] [place] [address] 06/16/2024 Primary Insuranc e:MEDICARE A AND BPolicy Number: [id number] Date:4983-37-96Aqxn Name:Carla Pantoja ESTEFANIAB: [id number] [place] [address] [place] [address] 06/16/2024 Secondary Insura nce:[facility] AARP SUPPLEMENTPolicy Number: [id number] Date:4545-48-54Khur Name:Josie Pantoja ESTEFANIAB: [id number] [place], [place] [address] [place] [address] 06/16/2024 Primary Insuranc e:MEDICARE A AND BPolicy Number: [id number] Date:6442-05-81Vyuy Name:Carla COOK Kit MACB: [id number] [place], [place] [address] [place] [address] 06/16/2024 Secondary Insura nce:[facility] AARP SUPPLEMENTPolicy Number: [id number] Date:8518-04-74Oiue Name:Josie COOK Kit MACB: [id number] [place], [place] [address] [place] [address] 06/16/2024 Primary Insuranc e:MEDICARE A AND BPolicy Number: [id number] Date:8157-56-79Fxxb Name:Carla COOK Kit MACB: [id number] [place], [place] [address] [place] [address] 06/16/2024 Secondary Insura nce:[facility] AARP SUPPLEMENTPolicy Number: [id number] Date:6345-97-18Ibnn Name:Josie COOK Kit JOHNSON: [id number] [place], [place] [address] [place] [address] 06/14/2024 Primary Insuranc e:MEDICARE A AND BPolicy Number: [id number] Date:0548-37-72Zbor Name:Carla JOYCE JOHNSON: [id number] [place] [address] [place] [address] 06/14/2024 Secondary Insura nce:[facility] AARP SUPPLEMENTPolicy Number: [id number] Date:4832-02-14Uwjh Name:Josie ROBLESB: [id number] [place], [place] [address] [place] [address] 06/14/2024 Primary Insuranc e:MEDICARE A AND BPolicy Number: [id number] Date:3486-54-44Zivh Name:Carla Pantoja ESTEFANIAB: [id number] [place], [place] [address] [place] [address] 06/14/2024 Secondary Insura nce:[facility] AARP SUPPLEMENTPolicy Number: [id number] Date:9548-93-54Ifdh Name:Josie Pantoja ESTEFANIAB: [id number] [place], [place] [address] [place] [address] 06/14/2024 Primary Insuranc e:MEDICARE A AND BPolicy Number: [id number] Date:0529-17-37Iqlk Name:Carla ROBLESB: [id number] [place] [address] [place] [address] 06/14/2024 Secondary Insura nce:[facility] AARP SUPPLEMENTPolicy Number: [id number] Date:4069-98-09Zhgo Name:Josie ROBLESB: [id number] [place], [place] [address] [place] [address] 06/07/2024 Primary Insuranc e:MEDICARE A AND BPolicy Number: [id number] Date:5559-22-32Zfnf Name:Carla ROBLESB: [id number] [place], [place] [address] [place] [address] 06/07/2024 Secondary Insura nce:[facility] AARP SUPPLEMENTPolicy Number: [id number] Date:2897-13-30Jxmf Name:Josie ROBLESB: [id number] [place], [place] [address] [place] [address] 06/04/2024 Primary Insuranc e:MEDICARE A AND BPolicy Number: [id number] Date:7012-74-02Tkok Name:Carla ROBLESB: [id number] [place], [place] [address] [place] [address] 06/04/2024 Secondary Insura nce:[facility] AARP SUPPLEMENTPolicy Number: [id number] Date:4942-80-83Vqzb Name:Josie ROBLESB: [id number] [place], [place] [address] [place] [address] 05/26/2024 Primary Insuranc e:MEDICARE A AND BPolicy Number: [id number] Date:0478-68-48Sucq Name:Carla ROBLESB: [id number] [place] [address] [place] [address] 05/26/2024 Secondary Insura nce:[facility] AARP SUPPLEMENTPolicy Number: [id number] Date:5058-03-24Obsd Name:Josie ROBLESB: [id number] [place], [place] [address] [place] [address] 05/04/2024 Primary Insuranc e:MEDICARE A AND BPolicy Number: [id number] Date:8083-42-53Jjzl Name:Carla ROBLESDOB: [id number] [place], [place] [address] [place] [address] 05/04/2024 Secondary Insura nce:[facility] AARP SUPPLEMENTPolicy Number: [id number] Date:2450-07-64Bvyt Name:Josie ROBLESB: [id number] [place], [place] [address] [place] [address] 04/16/2024 Primary Insuranc e:MEDICARE A AND BPolicy Number: [id number] Date:6309-85-73Mrjj Name:Carla JOHNSON: [id number] [place] [address] [facility] 04/16/2024 Secondary Insura nce:[facility] AARP SUPPLEMENTPolicy Number: [id number] Date:4905-19-54Gujh Name:Josie JOHNSON: [id number] [place] [address] [facility]
--- NOTE | 2025-04-11 10:19 | US_ITS ---
PROCEDURE: THORACENTESIS W US 04/11/2025 REASON FOR EXAM: MALIGNANT PLEURAL EFFUSION TECHNIQUE: THORACENTESIS W US COMPARISON: None FINDINGS: After obtaining a signed informed consent, patient was placed in upright position and posterior right lower thorax was marked under ultrasound guidance for thoracentesis. The skin was prepped and draped in the usual sterile fashion and local anesthesia was achieved by about 2% lidocaine. A 5 English catheter was then advanced into the pleural effusion with approximately 980 mL of clear yellowish fluid drained. The catheter was then removed and bandage placed. Patient left in stable condition. US/Thoracentesis W US IMPRESSION: Successful ultrasound-guided paracentesis of the right chest. No immediate pos tprocedural complications. Reading Location: [place] [address]
[2025-04-11 10:35] VITALS: BP 119/93; PULSE 84; RESP 16; TEMP 36.6; O2SAT 95
[2025-04-11] MEDS: Lidocaine 2% (20 ml mdv) 20 ML Vial INFILT (10:42)
[2025-04-11 10:45] VITALS: BP 140/79; PULSE 83; RESP 16; O2SAT 95
--- NOTE | 2025-04-11 10:45 | RAD_ITS ---
PROCEDURE: CHEST 1 VIEW (PORTABLE) 04/11/2025 REASON FOR EXAM: POST THORACENTESIS TECHNIQUE: Frontal view of the chest. COMPARISON: 04/04/2025 FINDINGS: Hardware: None Heart: Mildly enlarged Lungs: Bibasilar ground-glass opacification again demonstrated. Bones: Unremarkable. Other: RAD/Chest 1 View (Portable) IMPRESSION: Status post right-sided thoracentesis with no evidence of pneumothorax. Trace amount of bilateral pleural effusions consolidation or atelectasis present. Reading Location: [place] [address]
[2025-04-11 10:50] VITALS: BP 135/80; PULSE 82; RESP 16; O2SAT 96
[2025-04-11 10:56] VITALS: BP 126/76; PULSE 87; RESP 16; O2SAT 93
[2025-04-11 11:00] VITALS: BP 117/72; PULSE 92; RESP 16; O2SAT 94
== END | disposition home or self-care (01) ==
LOC: US 10:19
PROVIDERS: PCP Family Medicine; Referring Provider Internal Medicine Hematology & Oncology; Visit Provider Internal Medicine Hematology & Oncology
DX: J90 Pleural effusion, not elsewhere classified (principal)
CPT/HCPCS: 32555; 71045

== ENCOUNTER → 2025-04-18 | Outpatient (CLI) | payer MEDICARE, OTHER, SELFPAY ==
--- NOTE | 2025-04-18 10:21 | US_ITS ---
PROCEDURE: THORACENTESIS W US 04/18/2025 REASON FOR EXAM: MALLIGNANT PE TECHNIQUE: THORACENTESIS W US FINDINGS: Procedure: Following informed consent, an using standard sterile technique, a right thoracentesis was performed via a posterior approach. 2% lidocaine local anesthesia was followed by placement of a 5 Danish Yueh catheter into the right pleural fluid collection. Approximately 920 mL of jimmie colored fluid was successfully removed. No complication was encountered, and the patient left the department in good condition without significant complaint. US/Thoracentesis W US IMPRESSION: Successful therapeutic right thoracentesis. Reading Location: [place] [address]
--- NOTE | 2025-04-18 10:21 | US_ITS ---
PROCEDURE: THORACENTESIS W US 04/18/2025 REASON FOR EXAM: MALLIGNANT PE TECHNIQUE: THORACENTESIS W US FINDINGS: Procedure: Following informed consent, an using standard sterile technique, a right thoracentesis was performed via a posterior approach. 2% lidocaine local anesthesia was followed by placement of a 5 Danish Yueh catheter into the right pleural fluid collection. Approximately 920 mL of jimmie colored fluid was successfully removed. No complication was encountered, and the patient left the department in good condition without significant complaint. US/Thoracentesis W US IMPRESSION: Successful therapeutic right thoracentesis. Reading Location: [place] [address]
[2025-04-18 10:40] VITALS: BP 131/78; PULSE 88; RESP 16; O2SAT 96
[2025-04-18] MEDS: Lidocaine 2% (20 ml mdv) 20 ML Vial INFILT (10:46)
[2025-04-18 10:53] VITALS: BP 141/85; PULSE 85; RESP 16; O2SAT 96
== END | disposition home or self-care (01) ==
LOC: US 10:20
PROVIDERS: PCP Family Medicine; Referring Provider Internal Medicine Hematology & Oncology; Visit Provider Internal Medicine Hematology & Oncology
DX: C50.911 Malignant neoplasm of unspecified site of right female breast (principal); C78.2 Secondary malignant neoplasm of pleura; J91.0 Malignant pleural effusion
CPT/HCPCS: 32555

== ENCOUNTER → 2025-04-25 | Outpatient (CLI) | payer MEDICARE, OTHER, SELFPAY ==
[2025-04-25 10:35] VITALS: BP 129/59; PULSE 88; RESP 16; TEMP 36.2; O2SAT 95
[2025-04-25] MEDS: Lidocaine 2% (20 ml mdv) 20 ML Vial INFILT (10:40)
[2025-04-25 10:45] VITALS: BP 114/75; PULSE 90; RESP 16; O2SAT 95
[2025-04-25 10:52] VITALS: BP 135/75; PULSE 86; RESP 16; O2SAT 95
== END | disposition home or self-care (01) ==
LOC: US 10:21
PROVIDERS: PCP Family Medicine; Referring Provider Internal Medicine Hematology & Oncology; Visit Provider Internal Medicine Hematology & Oncology
DX: C50.911 Malignant neoplasm of unspecified site of right female breast (principal); C78.2 Secondary malignant neoplasm of pleura; J91.0 Malignant pleural effusion
CPT/HCPCS: 32555; 71046

== ENCOUNTER → 2025-04-26 | Outpatient (CLI) | payer MEDICARE, OTHER, SELFPAY ==
--- NOTE | 2025-04-26 09:30 | PET_ITS ---
PROCEDURE: PET/CT TUMOR BASE -THIGH SUBS 04/26/2025 Repeat PET REASON FOR EXAM: 70 y/o F with BREAST CANCER, INVASIVE STAGE IV TECHNIQUE: Procedure Code: PETPTCTSUB Modality: PT Procedure: PET/CT TUMOR BASE -THIGH SUBS Following the intravenous administration of radionucleotide, image acquisition on a dedicated PET/CT unit was performed at one hour post injection. A preliminary CT study encompassing the Skull base, neck, chest, abdomen, pelvis, and proximal thighs was performed for purposes of attenuation correction and anatomic localization. The proximal thighs were also included. Fasting blood sugar level of 101 RADIOPHARMACEUTICAL: 14.718 mCi 18F-FDG (Fluorodeoxyglucose F18) IV was injected into he patient. RADIATION DOSE SUMMARY: Effective Dose: Approximately 7 mSv for a standard whole-body PET scan Organ Doses: Varies by organ, with higher doses typically to the bladder, liver, and brain COMPARISON: COMPARISON FROM CT, PET OR OTHER PERTINENT EXAMS: Previous PET from 02/15/2025. FINDINGS: Physiologic uptake: There may be expected metabolic uptake within the brain, tongue and floor of the mouth and larynx/vocal cords, heart, marvin (many normal individuals have hilar uptake in less than 3 nodes with mildly avid hilar nodes less than 2.7 SUV), liver and spleen, system, and GI tract and symmetric muscle uptake. FDG AVID AND NON-AVID LESIONS. Reported avid SUV values (g/mL*) are maximum SUV. NECK: There are no significant neck abnormalities. CHEST: Chest wall- There are no significant chest wall abnormalities. Axilla- There are no significant axillary abnormalities. Lung parenchyma- There are no significant lung parenchyma abnormalities. Mediastinum- There are no significant hilar or mediastinal adenopathy. Pleura- There are no significant pleural abnormalities. ABDOMEN: Stomach- No significant abnormalities. Liver- No significant abnormalities. Spleen- No significant abnormalities. Pancrease- No significant abnormalities. Kidneys- No significant abnormalities. Bowel- Normal bowel activity. Spine- No significant abnormalities. PELVIS: Bowel- Normal physiologic bowel activity is identified. Masses- There are no pelvic masses. LOWER EXTREMITIES: Bones- With the use of bone window settings, there are no osteolytic or osteoblastic lesions. There are no FDG avid lesions within the visualized portion of the axial skeleton. The noncontrasted CT scan does not show evidence of abnormality within the visualized brain. No suspicious adenopathy within the neck. No airway narrowing or deviation. Thyroid gland is unremarkable. There are stable free-flowing bilateral pleural effusions, kqum-yarkwlu-czmk-right with associated atelectasis and a loculated effusion in the anterior aspect of the right hemithorax no suspicious noncalcified mass or nodule. Stable scattered hepatic cysts. Multiple gallstones are noted. No suspicious mesenteric or retroperitoneal adenopathy. Peripheral calcifications in the abdominal aorta and its branches. There is a stable 4 cm cyst in the left hemipelvis impinging upon the bladder unchanged from the previous study. Previously noted dilated fluid-filled loops of bowel no longer identified PET/PET/CT Tumor Base -Thigh Subs IMPRESSION: FDG avid- No significant avid lesions. Suspicious- No significant suspicious abnormalities. Non-FDG avid- No non-FDG avid cysts. Other: No additional comments. Please note the low-dose CT scan was performed to facilitate PET image reconstr uction and anatomic localization and does not replace a diagnostic CT. Any diagnostic CT requested and performed at the time of the PET will be reported separately. No interval change since the previous study Reading Location: [id number]
== END | disposition home or self-care (01) ==
PROVIDERS: PCP Family Medicine; Referring Provider Internal Medicine Hematology & Oncology; Visit Provider Internal Medicine Hematology & Oncology
DX: C50.412 Malignant neoplasm of upper-outer quadrant of left female breast (principal); C78.2 Secondary malignant neoplasm of pleura; J91.0 Malignant pleural effusion; C79.31 Secondary malignant neoplasm of brain; C79.51 Secondary malignant neoplasm of bone; Z17.0 Estrogen receptor positive status [ER+]
CPT/HCPCS: 78815; A9552

== ENCOUNTER → 2025-05-02 | Outpatient (CLI) | payer MEDICARE, OTHER, SELFPAY ==
--- NOTE | 2025-05-02 10:26 | US_ITS ---
PROCEDURE: THORACENTESIS W US 05/02/2025 REASON FOR EXAM: MALIGNANT PE TECHNIQUE: THORACENTESIS W US The procedure as well as the benefits and possible complications including infection, bleeding and pneumothorax were explained to the patient. Informed consent was obtained. The overlying skin was prepped and draped in the usual sterile fashion. Following local anesthetic application, a 5 Albanian drainage catheter was placed into the right pleural space. 700 mL of dark jimmie colored fluid was aspirated. The patient tolerated the procedure well. COMPARISON: April 18, 2025. FINDINGS: Successful thoracentesis of the right pleural space as described. The patient tolerated the procedure well. US/Thoracentesis W US IMPRESSION: Successful thoracentesis of the right pleural space. The patient tolerated the procedure well. No immediate complication noted. Reading Location: [place] [address]
--- NOTE | 2025-05-02 10:59 | RAD_ITS ---
PROCEDURE: CHEST INSP/EXP 2 VIEW 05/02/2025 REASON FOR EXAM: POST THORACENTESIS TECHNIQUE: Procedure Code: RADCXRINSPEXP Modality: DX Procedure: CHEST INSP/EXP 2 VIEW AP inspiration expiration views. COMPARISON: Prior study dated April 25, 2025. FINDINGS: The patient is status post right thoracentesis. No evidence of pneumothorax. RAD/Chest Insp/Exp 2 View IMPRESSION: No evidence of pneumothorax on the immediate post right thoracentesis. Reading Location: [place] [address]
[2025-05-02 11:12] VITALS: BP 114/87; PULSE 99; RESP 18; TEMP 36.1; O2SAT 97
[2025-05-02 11:13] VITALS: BP 108/75; PULSE 95; RESP 18; O2SAT 92
== END | disposition home or self-care (01) ==
LOC: US 10:26
PROVIDERS: PCP Family Medicine; Referring Provider Internal Medicine Hematology & Oncology; Visit Provider Internal Medicine Hematology & Oncology
DX: C50.911 Malignant neoplasm of unspecified site of right female breast (principal); C78.2 Secondary malignant neoplasm of pleura; J91.0 Malignant pleural effusion
CPT/HCPCS: 32555; 71046

== ENCOUNTER → 2025-05-09 | Outpatient (CLI) | payer MEDICARE, OTHER, SELFPAY ==
--- NOTE | 2025-05-09 10:19 | US_ITS ---
PROCEDURE: THORACENTESIS W US 05/09/2025 REASON FOR EXAM: MALIGNANT PE TECHNIQUE: THORACENTESIS W US FINDINGS: Procedure: Following consent, and using standard sterile technique, a right sided therapeutic thoracentesis was performed under ultrasound guidance. 2% lidocaine local anesthesia was following placement of a 5 Nigerian 7 cm Yueh catheter into the right pleural space VA posterolateral approach. Approximately 860 mL clear light jimmie fluid was successfully removed. No complication was encountered, in the patient left the department in good condition without significant complaint. US/Thoracentesis W US IMPRESSION: Successful ultrasound-guided right therapeutic thoracentesis. Reading Location: [place] [address]
[2025-05-09 10:30] VITALS: BP 118/62; PULSE 90; RESP 16; O2SAT 98
[2025-05-09] MEDS: Lidocaine 2% (20 ml mdv) 20 ML Vial INFILT (10:35)
[2025-05-09 10:43] VITALS: BP 127/67; PULSE 85; RESP 16; O2SAT 97
== END | disposition home or self-care (01) ==
LOC: US 10:18
PROVIDERS: PCP Family Medicine; Referring Provider Internal Medicine Hematology & Oncology; Visit Provider Internal Medicine Hematology & Oncology
DX: C50.911 Malignant neoplasm of unspecified site of right female breast (principal); C78.2 Secondary malignant neoplasm of pleura; J91.0 Malignant pleural effusion
CPT/HCPCS: 32555

== ENCOUNTER → 2025-05-16 | Outpatient (CLI) | payer MEDICARE, OTHER, SELFPAY ==
--- NOTE | 2025-05-16 10:03 | US_ITS ---
PROCEDURE: US/Thoracentesis W US
[2025-05-16 10:49] VITALS: BP 132/63; PULSE 100; RESP 18; O2SAT 97
[2025-05-16 10:50] VITALS: BP 134/69; PULSE 98; RESP 18; O2SAT 96
== END | disposition home or self-care (01) ==
LOC: US 10:01
PROVIDERS: PCP Family Medicine; Referring Provider Internal Medicine Hematology & Oncology; Visit Provider Internal Medicine Hematology & Oncology
DX: C50.911 Malignant neoplasm of unspecified site of right female breast (principal); C78.2 Secondary malignant neoplasm of pleura; J91.0 Malignant pleural effusion
CPT/HCPCS: 32555

== ENCOUNTER → 2025-05-30 | Outpatient (CLI) | payer MEDICARE, OTHER, SELFPAY ==
--- NOTE | 2025-05-30 | US_ITS ---
PROCEDURE: THORACENTESIS W US 05/30/2025 REASON FOR EXAM: PE Recurrent right pleural fluid collection. TECHNIQUE: Right THORACENTESIS W US FINDINGS: Procedure: Following informed consent, and using standard sterile technique, an ultrasound- guided right thoracentesis was performed via a posterior approach. 2% lidocaine local anesthesia was followed by placement of a 5 Spanish Yueh catheter into the right pleural fluid collection. Approximately 1360 mL clear yellow fluid was successfully removed. No complication was encountered, in the patient left the department in good condition without significant complaint. US/Thoracentesis W US IMPRESSION: Successful ultrasound-guided right thoracentesis. Reading Location: [place] [address]
[2025-05-30 10:04] VITALS: BP 135/70; RESP 90; TEMP 36.8; O2SAT 18
[2025-05-30 10:15] VITALS: BP 130/68; PULSE 83; RESP 16; O2SAT 94
[2025-05-30] MEDS: Lidocaine 2% (20 ml mdv) 20 ML Vial INFILT (10:15)
[2025-05-30 10:17] VITALS: BP 134/78; PULSE 92; RESP 18; O2SAT 95
[2025-05-30 10:22] VITALS: BP 144/88; PULSE 95; RESP 18; O2SAT 96
[2025-05-30 10:27] VITALS: BP 135/67; PULSE 99; RESP 18; O2SAT 95
[2025-05-30 10:30] VITALS: BP 132/82; PULSE 96; RESP 18; O2SAT 95
== END | disposition home or self-care (01) ==
LOC: US 09:47
PROVIDERS: PCP Family Medicine; Referring Provider Internal Medicine Hematology & Oncology; Visit Provider Internal Medicine Hematology & Oncology
DX: C78.2 Secondary malignant neoplasm of pleura (principal); J91.0 Malignant pleural effusion; C50.911 Malignant neoplasm of unspecified site of right female breast
CPT/HCPCS: 32555

== ENCOUNTER → 2025-06-15 | Outpatient (CLI) | payer MEDICARE, OTHER, SELFPAY ==
--- NOTE | 2025-06-15 10:51 | US_ITS ---
PROCEDURE: THORACENTESIS W US 06/15/2025 REASON FOR EXAM: MALIGNANT PLEURAL EFFUSION TECHNIQUE: THORACENTESIS W US The procedure as well as the benefits and possible complications including infection, bleeding and pneumothorax were explained to the patient. Informed consent was obtained. The overlying skin was prepped and draped in the usual sterile fashion. Following local anesthetic application under direct sonographic guidance, a 5 Uruguayan drainage catheter was placed into the right pleural space. 1350 mL of jimmie colored fluid was aspirated. The patient tolerated the procedure well. COMPARISON: May 30, 2025. FINDINGS: Successful right thoracentesis with removal of 1350 mL of jimmie colored fluid. US/Thoracentesis W US IMPRESSION: Successful right thoracentesis with removal of 1350 mL of jimmie colored fluid. The patient tolerated the procedure well. No immediate complication noted. Reading Location: [place] [address]
[2025-06-15] MEDS: Lidocaine 2% (20 ml mdv) 20 ML Vial INFILT (11:05)
--- NOTE | 2025-06-15 11:20 | RAD_ITS ---
PROCEDURE: CHEST INSP/EXP 2 VIEW 06/15/2025 REASON FOR EXAM: POST THORA TECHNIQUE: Procedure Code: RADCXRINSPEXP Modality: DX Procedure: CHEST INSP/EXP 2 VIEW AP inspiration expiration views were obtained. COMPARISON: May 02, 2025. FINDINGS: No evidence of pneumothorax in the immediate post right thoracentesis examination. RAD/Chest Insp/Exp 2 View IMPRESSION: No evidence of pneumothorax on the immediate post right thoracentesis examinati on. Reading Location: [facility]
[2025-06-15 12:14] VITALS: BP 112/93; PULSE 103; RESP 18; O2SAT 95
[2025-06-15 12:16] VITALS: BP 128/84; PULSE 104; RESP 18; O2SAT 94
== END | disposition home or self-care (01) ==
LOC: US 10:50
PROVIDERS: PCP Family Medicine; Referring Provider Internal Medicine Hematology & Oncology; Visit Provider Internal Medicine Hematology & Oncology
DX: C50.911 Malignant neoplasm of unspecified site of right female breast (principal); C78.2 Secondary malignant neoplasm of pleura; J91.0 Malignant pleural effusion
CPT/HCPCS: 32555; 71046

== ENCOUNTER → 2025-06-27 | Outpatient (CLI) | payer MEDICARE, OTHER, SELFPAY ==
--- NOTE | 2025-06-27 10:20 | US_ITS ---
PROCEDURE: THORACENTESIS W US 06/27/2025 REASON FOR EXAM: MALIGNANT PLEURAL EFFUSION TECHNIQUE: THORACENTESIS W US, right. FINDINGS: Following informed consent, and using standard sterile technique, a therapeutic ultrasound-guided right thoracentesis was performed. 2% lidocaine local anesthesia was followed by placement of a 5 Mongolian 7 cm Yueh catheter into the right pleural fluid collection. Approximately 1350 mL of light jimmie fluid was successfully removed. No complication was encountered, and the patient left the department in good condition without significant complaint. US/Thoracentesis W US IMPRESSION: Successful ultrasound-guided therapeutic right thoracentesis. Reading Location: [place] [address]
[2025-06-27] MEDS: Lidocaine 2% (20 ml mdv) 20 ML Vial INFILT (10:45)
[2025-06-27 11:09] VITALS: BP 119/72; BP 124/67; PULSE 100; PULSE 104; RESP 18; O2SAT 95
== END | disposition home or self-care (01) ==
LOC: US 10:19
PROVIDERS: PCP Family Medicine; Referring Provider Internal Medicine Hematology & Oncology; Visit Provider Internal Medicine Hematology & Oncology
DX: C50.911 Malignant neoplasm of unspecified site of right female breast (principal); C78.2 Secondary malignant neoplasm of pleura; J91.0 Malignant pleural effusion
CPT/HCPCS: 32555

== ENCOUNTER → 2025-07-11 | Outpatient (CLI) | payer MEDICARE, OTHER, SELFPAY ==
--- NOTE | 2025-07-11 10:22 | US_ITS ---
PROCEDURE: THORACENTESIS W US 07/11/2025 REASON FOR EXAM: MALIGNANT PE TECHNIQUE: Right THORACENTESIS W US FINDINGS: Following informed consent, an using standard sterile technique, a right ultrasound-guided thoracentesis was performed via a posterior approach. 2% lidocaine local anesthesia was followed by placement of a 5 Amharic Yueh catheter into the pleural fluid collection. Approximately 1310 mL of light jimmie fluid was successfully removed. No complication was encountered, in the patient left the department in good condition without significant complaint. US/Thoracentesis W US IMPRESSION: Successful ultrasound-guided right thoracentesis. Reading Location: [place] [address]
[2025-07-11 10:45] VITALS: BP 122/68; PULSE 84; RESP 16; O2SAT 96
[2025-07-11 10:54] VITALS: BP 133/76; PULSE 89; RESP 16; O2SAT 95
[2025-07-11 11:00] VITALS: BP 115/80; PULSE 94; RESP 16; O2SAT 93
[2025-07-11 11:25] VITALS: BP 138/80; PULSE 89; RESP 16; TEMP 36.8; O2SAT 94
[2025-07-11] MEDS: Lidocaine 2% (20 ml mdv) 20 ML Vial INFILT (11:41)
== END | disposition home or self-care (01) ==
LOC: US 10:21
PROVIDERS: PCP Family Medicine; Referring Provider Internal Medicine Hematology & Oncology; Visit Provider Internal Medicine Hematology & Oncology
DX: C50.911 Malignant neoplasm of unspecified site of right female breast (principal); C78.2 Secondary malignant neoplasm of pleura; J91.0 Malignant pleural effusion
CPT/HCPCS: 32555